=== PATIENT | female | born 1965 | race American Indian/Alaskan Native ===

== ENCOUNTER → 2020-07-24 09:01 | Outpatient (BNVA) | payer MEDICAID, SELFPAY | PROVIDERS: PCP Nurse Practitioner Family; Referring Provider Nurse Practitioner Family; Visit Provider Internal Medicine Gastroenterology | DX: R68.81 Early satiety (principal); K21.9 Gastro-esophageal reflux disease without esophagitis; K59.00 Constipation, unspecified | CPT/HCPCS: 99212 ==

== ENCOUNTER → 2020-08-20 08:05 | Outpatient (REF) | payer MEDICAID, SELFPAY ==
--- NOTE | 2020-08-20 08:07 | NM_ITS ---
EXAMINATION: RADIONUCLIDE SOLID FOOD GASTRIC EMPTYING 4-HOUR STUDY CLINICAL INFORMATION: Early satiety. COMPARISON: No previous gastric emptying study is available for comparison. TECHNIQUE: A standard meal consisting of 4 oz of Egg Beaters brand equivalent tagged with 880 microcuries Tc-99m Sulfur Colloid, 8 oz water and 2 slices of toast with jelly was administered orally to the patient. Images were obtained using a dual head gamma camera in the anterior and posterior projections over of the stomach immediately post ingestion and at hourly intervals up to 4 hours post ingestion. The anterior and posterior counts at each time interval were averaged using the geometric mean and expressed as percentage of the immediate post ingestion counts. FINDINGS: There is good visualization of activity in the stomach immediately post ingestion. As the study progresses, there is good clearance of activity from the stomach and visualization of progressively increasing small bowel activity. However, at the end of the study there is mild abnormal retention of activity in the stomach at 4 hours. Retention in the stomach at each time interval was: 1 hour 54% (normal 37%-90%) 2 hours 41% (normal 30%-60%) 3 hours 33% 4 hours 21% (normal 0%-10%) NM/NM gastric emptying study IMPRESSION: Abnormal study. There is mild abnormal retention of solid food in the stomach at 4 hours.
== END ==
LOC: HO.NUCMED 08:05
PROVIDERS: Visit Provider Internal Medicine Gastroenterology
DX: R68.81 Early satiety (principal)
CPT/HCPCS: 78264; A9541

== ENCOUNTER 2020-09-12 08:17 | Day surgery (SDC) | payer MEDICAID, SELFPAY ==
[2020-09-05 14:24] VITALS: BMI 30.9
--- NOTE | 2020-09-11 11:04 | P.CONAN_ITS ---
Documented by User: Dione Davey 09/11/20 11:05 HPI - Anesthesia Eval Consult details Narrative: 55yo F for Upper Endoscopy PMFSH Past Medical History Medical History Anxiety Asthma Depression GERD (gastroesophageal reflux disease) Hx of hepatitis C Hypertension Hypothyroid Migraines Family History Family History Father No problems noted. Mother No problems noted. Surgical History Surgical History History of colonoscopy History of nasal surgery History of tubal ligation Social History Social History Are you a primary medicare interviewer to a significant other at home: No Do you presently have visiting nurse or other home services: No Alcohol intake: never Smoking Status: Never smoker Use of substances other than those prescribed or required for medical reasons: No Substance Use Type Other:: quit a few yrs ago Advance Directives: No Advance Directives Information Provided: No Advance Directives on File: No Recently lost weight without trying: No Meds Allergies Allergy/AdvReac Type Severity Reaction Status Date / Time No Known Allergies Allergy Verified 09/12/20 08:22 Home Medications Medication Instructions Recorded Confirmed Type baclofen 10 mg PO TID PRN 09/05/20 09/05/20 History hydrochlorothiazide 25 mg PO DAILY 09/05/20 09/05/20 History ibuprofen 800 mg PO TID PRN 09/05/20 09/05/20 History lisinopril 10 mg PO DAILY 09/05/20 09/05/20 History loratadine 10 mg PO DAILY 09/05/20 09/05/20 History omeprazole 40 mg PO BID 09/05/20 09/05/20 History prucalopride 2 mg PO DAILY 09/05/20 09/05/20 History quetiapine [Seroquel] 150 mg PO BEDTIME 09/05/20 09/05/20 History simethicone [Gas Relief 250 mg PO BID PRN 09/05/20 09/05/20 History (simethicone)] zolpidem [Ambien] 10 mg PO BEDTIME PRN 09/05/20 09/05/20 History Exam Exam Date and Time: September 11, 2020 1104 Height,Weight and Vital Signs: Height 5 ft 4 in Weight 81.647 kg Assessment and Plan Assessment Anesthesia Assessment: Chart Reviewed Documented by User: Tracey Sotelo 09/12/20 08:50 FORMERLY [facility] Past Medical History Medical History Anxiety Asthma Depression GERD (gastroesophageal reflux disease) Hx of hepatitis C Hypertension Hypothyroid Migraines Family History Family History Father No problems noted. Mother No problems noted. Surgical History Surgical History History of colonoscopy History of nasal surgery History of tubal ligation Social History Social History Are you a primary medicare interviewer to a significant other at home: No Do you presently have visiting nurse or other home services: No Alcohol intake: never Smoking Status: Never smoker Use of substances other than those prescribed or required for medical reasons: No Substance Use Type Other:: quit a few yrs ago Advance Directives: No Advance Directives Information Provided: No Advance Directives on File: No Recently lost weight without trying: No Meds Allergies Allergy/AdvReac Type Severity Reaction Status Date / Time No Known Allergies Allergy Verified 09/12/20 08:22 Home Medications Medication Instructions Recorded Confirmed Type baclofen 10 mg PO TID PRN 09/05/20 09/05/20 History hydrochlorothiazide 25 mg PO DAILY 09/05/20 09/05/20 History ibuprofen 800 mg PO TID PRN 09/05/20 09/05/20 History lisinopril 10 mg PO DAILY 09/05/20 09/05/20 History loratadine 10 mg PO DAILY 09/05/20 09/05/20 History omeprazole 40 mg PO BID 09/05/20 09/05/20 History prucalopride 2 mg PO DAILY 09/05/20 09/05/20 History quetiapine [Seroquel] 150 mg PO BEDTIME 09/05/20 09/05/20 History simethicone [Gas Relief 250 mg PO BID PRN 09/05/20 09/05/20 History (simethicone)] zolpidem [Ambien] 10 mg PO BEDTIME PRN 09/05/20 09/05/20 History Exam Airway Mallampati Class: III TM Dist: >3cm Neck ROM: Full Loose/Missing/Broken Teeth: No (RRR) Heart: RRR Lungs: CTA Assessment and Plan Assessment Anesthesia Assessment: Anesthesia Plan Discussed and Chart Reviewed Final Anesthetic Review NPO: Yes ASA Class: II and III Final Preanesthetic Review: No Changes in Pt Med Stat, Meds/Allgs Chart Reviewed and Consent Obtained/Reviewed Patient Risk: Intermediate Procedure Risk: Intermediate Anesthetic Plan Anesthetic Plan: MAC: Disposition: Standard PACU
[2020-09-12 08:25] VITALS: BP 116/59; PULSE 64; RESP 18; TEMP 36.4; O2SAT 97
[2020-09-12] MEDS: Lactated Ringers 1,000 ML 100 ML IVCONT (08:44)
--- NOTE | 2020-09-12 09:21 | MHC.SHP ---
Pre-Procedural Eval Section B Chief Complaint: Early Satiety Relevant Family History (Specify if Yes): No Relevant Social History: None Present Medications: see Short Stay Collaborative assessment Medical History: Significant History (Anxiety Asthma Depression GERD (gastroesophageal reflux disease) Hx of hepatitis C Hypertension Hypothyroid Migraines) History of Previous Operations: Relevant previous surgery/procedure and date(s) (nasal surgery) Allergies: Allergies Allergy/AdvReac Type Severity Reaction Status Date / Time No Known Allergies Allergy Verified 09/12/20 08:22 Review of Systems Sugical H&P ROS: Negative: Constitution, Cardiovascular, Respiratory, Neurological, Psychiatric, Hem-Onc, Allergic/Immunologic, Gastrointestinal, Genitourinary, Musculoskeletal, Integumentary, Endocrine and Eyes/Ears/Nose/Throat Exam Surgical H&P Exam: Normal: HEENT, Normal: Heart, Normal: Lungs, Normal: Extremities, Normal: Abdomen, Normal: Skin and Normal: Neurological Plan Diagnosis/Plan: Unchanged I have reviewed the history and physical and performed a pertinent physical examination on my patient. No changes have occurred unless specified.
--- NOTE | 2020-09-12 09:23 | PM.OP ---
Brief Operative Note Date of Service: 09/12/20 Pre-op diagnosis: early satiety, epigastric pain Post-op diagnosis: same Procedure: Procedure Description: EGD FLEXIBLE TRANSORAL UPPER GASTROINTESTINAL ENDOSCOPY UPPER ENDOSCOPY Consent: Indications for the procedure and potential complications of bleeding, perforation, reaction to medications and missed diagnosis were discussed with the patient and informed consent was obtained. Instrument: Olympus GIF H 190 J mid size upper endoscope Monitoring: Vital signs and clinical assessment, continuous EKG monitoring, Pulse oximetry, Carbon Dioxide monitoring and blood pressure monitoring were done throughout the procedure. Procedure: The patient was placed in the left lateral decubitis position and pre-procedure medications were administered and a bite block was placed. The endoscope was inserted into the mouth and advanced under direct vision to the third part of duodenum. A careful inspection was made as the upper endoscope was withdrawn including a retroflexed examination of the proximal stomach; Findings and interventions are described below. Findings: Larynx:normal Esophagus: GE junction at 35 cm, diaphragm hiatus at 37 cm, mild esophagitis at GEJ, 2 cm sliding hiatal hernia. Random esophagus bx taken Stomach: Patchy gastric erythema with nodularity and ridged mucosa. Biopsies were obtained. Grade 2 flap valve on retroflexed examination of the cardia. Duodenum: Normal bulb and descending duodenum, bx taken Intervention: Biopsies as noted above Impression/Findings: gastritis hiatal hernia PLAN: await bx if h pylori pos then treat might change PPI depending on results may need GES if ongoing sx Surgeon: Missy Davidson MD Anesthesia: MAC Estimated blood loss (mL): 0 Condition: stable Disposition: PACU
[2020-09-12 10:01] VITALS: BP 116/58; PULSE 57; RESP 0; TEMP 36.4; O2SAT 80
[2020-09-12 10:16] VITALS: BP 126/84; PULSE 60; RESP 18; O2SAT 100
[2020-09-12 10:30] VITALS: BP 124/75; PULSE 60; RESP 19; TEMP 36.4; O2SAT 94
--- NOTE | 2020-09-12 11:06 | HO.POSTANES ---
Post Anesthesia Evaluation Post Anesthesia Evaluation Vital Signs: Vital Signs Temp Pulse Resp BP Pulse Ox 09/12/20 10:30 97.5 F 60 19 124/75 94 09/12/20 10:16 60 18 126/84 100 09/12/20 10:01 97.5 F 57 0 L 116/58 L 80 L 09/12/20 08:25 97.6 F 64 18 116/59 L 97 Anesthesia: Monitored Mental Status: Awake Pain Control: Satisfactory Nausea/Vomiting: None Hydration: Adequate Anesthesia-Related Issues: No Anes. Related Issues
== END 2020-09-12 11:22 | disposition home or self-care (01) ==
PROVIDERS: Visit Provider Internal Medicine Gastroenterology
PROC: 0DJ08ZZ Inspection of Upper Intestinal Tract, Via Natural or Artificial Opening Endoscopic (ICD-10-PCS; CPT 43235; principal; 2020-09-12 10:10)
DX: K21.00 Gastro-esophageal reflux disease with esophagitis, without bleeding (principal); K29.50 Unspecified chronic gastritis without bleeding; K44.9 Diaphragmatic hernia without obstruction or gangrene
CPT/HCPCS: 43239; 88305; 88342; J3010

== ENCOUNTER → 2020-10-22 09:52 | Outpatient (BNVA) | payer MEDICAID, SELFPAY | PROVIDERS: PCP Nurse Practitioner Family; Visit Provider Internal Medicine Gastroenterology ==

== ENCOUNTER 2021-02-14 17:43 | Emergency (ER) | payer MEDICAID, SELFPAY ==
--- NOTE | ~2021-02-14 | XR_ITS ---
EXAMINATION: XR CHEST CLINICAL INFORMATION: Cough and right-sided back pain COMPARISON: 05/21/2011 TECHNIQUE: Frontal view of the chest was obtained. FINDINGS: Prominent calcification of the cartilages from the first ribs, similar to prior studies. No focal consolidation, pleural effusion or pneumothorax. Heart size is normal. No acute osseous abnormality. XR/XR chest 1V IMPRESSION: No acute pulmonary process.
[2021-02-14 17:47] VITALS: BP 128/85; PULSE 90; RESP 18; TEMP 36.3; O2SAT 98; BMI 29.2
[2021-02-14 20:00] VITALS: BP 133/83; PULSE 85; RESP 18; O2SAT 98
--- NOTE | 2021-02-14 21:21 | ED.GENADULT ---
HPI - General Adult General Chief complaint: General Medical Stated complaint: abd pain Time Seen by Provider: 02/14/21 20:52 Source: patient Mode of arrival: ambulatory Limitations: no limitations History of Present Illness HPI narrative: Patient comes emergency room complaining of headache for 5 days, mild coughing causing right-sided back pain, suprapubic burning sensation and dysuria. Patient denies fever or chills. Denies hematuria Related Data Home Medications Medication Instructions Recorded Confirmed baclofen 10 mg PO TID PRN 09/05/20 10/22/20 hydrochlorothiazide 25 mg PO DAILY 09/05/20 10/22/20 ibuprofen 800 mg PO TID PRN 09/05/20 10/22/20 lisinopril 10 mg PO DAILY 09/05/20 10/22/20 loratadine 10 mg PO DAILY 09/05/20 10/22/20 prucalopride 2 mg PO DAILY 09/05/20 10/22/20 quetiapine [Seroquel] 150 mg PO BEDTIME 09/05/20 10/22/20 simethicone [Gas Relief 250 mg PO BID PRN 09/05/20 10/22/20 (simethicone)] zolpidem [Ambien] 10 mg PO BEDTIME PRN 09/05/20 10/22/20 Previous Rx's Medication Instructions Recorded pantoprazole 40 mg tablet,delayed 40 mg PO BID #90 tab 10/22/20 release prucalopride 2 mg tablet 2 mg PO DAILY #60 tab 10/22/20 levofloxacin 500 mg PO DAILY #9 tab 02/14/21 phenazopyridine 200 mg PO TID PRN #7 tab 02/14/21 Allergies Allergy/AdvReac Type Severity Reaction Status Date / Time No Known Allergies Allergy Verified 10/22/20 09:52 Review of Systems Review of Systems: Constitutional : No Weight loss, No Fever, No Chills, No Night Sweats, No Fatigue, No Malaise ENT/Mouth : No Hearing loss, No Ear Pain, No Nasal Congestion, No Sinus Pain, No Hoarseness, No sore throat, No Rhinorrhea, No Swallowing Difficulty Eyes: No Eye Pain, No Swelling, No Redness, No Foreign Body, No Discharge, No Vision Changes Cardiovascular : No Chest Pain, No SOB, No Dyspnea on Exertion, No Orthopnea, No Edema, No Palpitations Respiratory : Complaining of dry cough causing right-sided back pain, No Sputum, No Wheezing, No Smoke Exposure, No Dyspnea Gastrointestinal : No Nausea, No Vomiting, No Diarrhea, No Constipation, complaining of suprapubic burning sensation, No Hematochezia, No Melena Genitourinary : no irregular bleeding, complaining of Dysuria, No Urinary Frequency, No Hematuria, No Urinary Incontinence, No Urgency, No Flank Pain, No Urinary Flow Changes, No Hesitancy Musculoskeletal : No joint pain, No Myalgias, No Joint Swelling Skin : No Skin Lesions, No rash Neuro : No Weakness, No Numbness, No Paresthesias, No Loss of Consciousness, No Dizziness, complaining of frontal Headache Psych : No Anxiety/Panic, No Depression, No SI/HI/AH/VH, No Social Issues, Heme/Lymph: No Bruising, No Bleeding,No Lymphadenopathy Endocrine : No Polyuria, No Polydipsia, No Temperature Intolerance PMFSH Past Medical History Medical History Anxiety Asthma Depression GERD (gastroesophageal reflux disease) Hx of hepatitis C Hypertension Hypothyroid Migraines Surgical History History of colonoscopy History of esophagogastroduodenoscopy (EGD) History of nasal surgery History of tubal ligation Family History Family History (Updated 10/22/20 @ 09:54 by ANTONY Cardona) Father No problems noted. Mother HTN (hypertension) Social History Social History (Updated 10/22/20 @ 09:55 by ANTONY Cardona) Household Members: None Are you a primary palliative care coordinator to a significant other at home: No Do you presently have visiting nurse or other home services: No Alcohol intake: current Alcohol intake frequency: does not drink Advance Directives: No Advance Directives Information Provided: Yes Physical Exam Vital Signs: Vital Signs: Last Vital Signs Temp 97.3 F 02/14/21 17:47 Pulse 85 02/14/21 20:00 Resp 18 02/14/21 20:00 BP 133/83 02/14/21 20:00 Pulse Ox 98 02/14/21 20:00 Body Mass Index 29.2 Appearance: Alert. Oriented X3. No acute distress. Eyes: Pupils equal, round and reactive to light. ENT: Pharynx normal. Neck: Normal inspection. Neck supple. No lymph nodes noted. No crepitus CVS: Normal heart rate and rhythm. Pulses normal. Normal S1 and S2 Respiratory: No respiratory distress. Breath sounds normal. No Wheezing. No rales Abdomen: Soft mild discomfort to deep palpation over the suprapubic area, no guarding, no rebound, No rigidity. No distention. Skin: Skin warm and dry. Normal skin color. Normal skin turgor. Extremities: No lower extremity edema. No lower extremity edema. No Lacerations. No Rash Neuro: Oriented X 3. No motor deficit. No sensory deficit. Moving all extermities. No slurred speech. Course Course Course Narrative: Patient does have a urinary tract infection, considering that the patient has back pain, patient has clinically pyelonephritis. At this time, sepsis is not suspected. Patient will be treated with antibiotics and sent home with a prescription. Patient's chest x-ray within normal limits, COVID negative Medical Decision Making Lab Data Result diagrams: 02/14/21 21:42 02/14/21 22:28 Labs: Lab Results 02/14/21 02/14/21 02/14/21 Range/Units 21:42 21:42 21:44 WBC 4.7 L (4.8-10.8) X10*3/uL RBC 4.79 (4.20-5.50) X10*6/uL Hgb 12.7 (12.0-16.0) g/dl Hct 39.6 (37-47) % MCV 82.7 (80-98) fL MCH 26.5 L (27.0-33.0) pg MCHC 32.1 (31.0-35.0) g/dl RDW 14.3 (11.0-16.0) % Plt Count 213 (160-400) X10*3/uL MPV 9.9 (9.4-12.3) fL Immature Gran % (Auto) 0.2 (0.0-0.4) % Neut % (Auto) 56.0 (45-73) % Lymph % (Auto) 33.0 (20-40) % [place] % (Auto) 6.8 (2-11) % Eos % (Auto) 3.4 (0-4) % Baso % (Auto) 0.6 (0-2) % Lymph # (Auto) 1.6 (1.2-4.9) X10*3/uL [place] # (Auto) 0.3 (0.1-1.2) X10*3/uL Eos # (Auto) 0.2 (0.0-0.4) X10*3/uL Baso # (Auto) 0.0 (0.0-0.2) X10*3/uL Abs Immat Gran (auto) 0.01 (0.00-0.03) X10*3/uL Absolute Neuts (auto) 2.6 (2.0-8.3) X10*3/uL Absolute Nucleated RBC 0.000 (0.0-0.012) X10*3/uL Nucleated RBC % (auto) 0.0 (0.0-0.2) /100WBC Sodium (135-145) mmol/L Potassium (3.3-5.1) mmol/L Chloride (96-108) mmol/L Carbon Dioxide (22-29) mmol/L Anion Gap (12-20) BUN (9-16) mg/dL Creatinine (0.5-1.4) mg/dL Estim Creat Clear Calc Estimated GFR Random Glucose (60-115) mg/dL Calcium (8.4-10.2) mg/dL Urine Color YELLOW Urine Appearance HAZY Urine pH 6.0 (5.0-8.0) Ur Specific [place] 1.015 (1.005-1.025) Urine Protein NEG (NEG-TRACE) MG/DL Urine Glucose (UA) NEG (NEG) MG/DL Urine Ketones NEG (NEG) MG/DL Urine Blood 1+ H (NEG) Urine Nitrite NEG (NEG) Ur Leukocyte Esterase 2+ H (NEG) COVID-19 ([facility]) Negative (Negative) COVID-19 Clin Com See Note 02/14/21 Range/Units 22:28 WBC (4.8-10.8) X10*3/uL RBC (4.20-5.50) X10*6/uL Hgb (12.0-16.0) g/dl Hct (37-47) % MCV (80-98) fL MCH (27.0-33.0) pg MCHC (31.0-35.0) g/dl RDW (11.0-16.0) % Plt Count (160-400) X10*3/uL MPV (9.4-12.3) fL Immature Gran % (Auto) (0.0-0.4) % Neut % (Auto) (45-73) % Lymph % (Auto) (20-40) % [place] % (Auto) (2-11) % Eos % (Auto) (0-4) % Baso % (Auto) (0-2) % Lymph # (Auto) (1.2-4.9) X10*3/uL [place] # (Auto) (0.1-1.2) X10*3/uL Eos # (Auto) (0.0-0.4) X10*3/uL Baso # (Auto) (0.0-0.2) X10*3/uL Abs Immat Gran (auto) (0.00-0.03) X10*3/uL Absolute Neuts (auto) (2.0-8.3) X10*3/uL Absolute Nucleated RBC (0.0-0.012) X10*3/uL Nucleated RBC % (auto) (0.0-0.2) /100WBC Sodium 136 (135-145) mmol/L Potassium 4.1 (3.3-5.1) mmol/L Chloride 99 (96-108) mmol/L Carbon Dioxide 28 (22-29) mmol/L Anion Gap 13 (12-20) BUN 12 (9-16) mg/dL Creatinine 0.81 (0.5-1.4) mg/dL Estim Creat Clear Calc 80.7 Estimated GFR > 60 Random Glucose 82 (60-115) mg/dL Calcium 9.8 (8.4-10.2) mg/dL Urine Color Urine Appearance Urine pH (5.0-8.0) Ur Specific [place] (1.005-1.025) Urine Protein (NEG-TRACE) MG/DL Urine Glucose (UA) (NEG) MG/DL Urine Ketones (NEG) MG/DL Urine Blood (NEG) Urine Nitrite (NEG) Ur Leukocyte Esterase (NEG) COVID-19 ([facility]) (Negative) COVID-19 Clin Com Imaging Data Chest x-ray: Radiologist's impression: Prominent calcification of the cartilages from the first ribs, similar to prior studies. No focal consolidation, pleural effusion or pneumothorax. Heart size is normal. No acute osseous abnormality. XR/XR chest 1V IMPRESSION: No acute pulmonary process. Discharge Plan Discharge Clinical Impression: Pyelonephritis Patient Disposition: Home, Self-Care Instructions: Kidney Infection (ED) Additional Instructions: Please follow-up with your primary care physician tomorrow. If you have any worsening or new symptoms, please return to the emergency room or call 911 Prescriptions: New levofloxacin 500 mg tablet 500 mg PO DAILY Qty: 9 RF: 0 phenazopyridine 100 mg tablet 200 mg PO TID PRN (Reason: pain) Qty: 7 RF: 0 No Action ibuprofen 800 mg Tablet 800 mg PO TID PRN (Reason: Pain) RF: 0 simethicone [Gas Relief (simethicone)] 125 mg Capsule 250 mg PO BID PRN (Reason: Gastric Reflux) RF: 0 quetiapine [Seroquel] 100 mg Tablet 150 mg PO BEDTIME RF: 0 baclofen 10 mg Tablet 10 mg PO TID PRN (Reason: Muscle Spasm) RF: 0 hydrochlorothiazide 25 mg Tablet 25 mg PO DAILY RF: 0 zolpidem [Ambien] 10 mg Tablet 10 mg PO BEDTIME PRN (Reason: Sleep) RF: 0 loratadine 10 mg Tablet 10 mg PO DAILY RF: 0 prucalopride 2 mg Tablet 2 mg PO DAILY RF: 0 lisinopril 10 mg Tablet 10 mg PO DAILY RF: 0 pantoprazole 40 mg tablet,delayed release (DR/EC) 40 mg PO BID Qty: 90 RF: 3 Motegrity 2 mg tablet 2 mg PO DAILY Qty: 60 RF: 3
[2021-02-14 21:48] LABS: MANUAL DIFF FLAG NO
[2021-02-14 21:49] LABS: Basophils Percent Auto 0.6 % (0-2); Eosinophils Absolute Auto 0.2 X10*3/uL (0.0-0.4); Eosinophils Percent Auto 3.4 % (0-4); Hematocrit 39.6 % (37-47); Hemoglobin 12.7 g/dl (12.0-16.0); Imm Gran Abs Auto 0.01 X10*3/uL (0.00-0.03); Imm Gran Pct Auto 0.2 % (0.0-0.4); Lymphocytes Absolute Auto 1.6 X10*3/uL (1.2-4.9); Mean Corpuscular HGB Conc 32.1 g/dl (31.0-35.0); Mean Corpuscular Hemoglobin 26.5 pg (27.0-33.0); Mean Corpuscular Volume 82.7 fL (80-98); Mean Platelet Volume 9.9 fL (9.4-12.3); Monocytes Absolute Auto 0.3 X10*3/uL (0.1-1.2); Monocytes Percent Auto 6.8 % (2-11); Neutrophils Absolute Auto 2.6 X10*3/uL (2.0-8.3); Platelet Count 213 X10*3/uL (160-400); Red Blood Count 4.79 X10*6/uL (4.20-5.50); Red Cell Distribution Width 14.3 % (11.0-16.0); White Blood Count 4.7 X10*3/uL (4.8-10.8)
[2021-02-14] MEDS: SUMAtriptan succinate 100 MG TABLET PO (22:24)
[2021-02-14 22:36] LABS: Glucose Urine UA NEG (NEG); Leukocyte Esterase Urine 2+ (NEG); Nitrite Urine NEG (NEG); Specific Gravity - Urine 1.015 (1.005-1.025); UACC Culture Trigger YES; Urine Blood 1+ (NEG); Urine Ketones NEG (NEG); Urine Protein NEG (NEG-TRACE)
[2021-02-14 22:37] LABS: Appearance Urine HAZY; Color Urine YELLOW
[2021-02-14 22:51] LABS: COVID-19 Test Negative (Negative)
[2021-02-14 22:56] LABS: Anion Gap 13 (12-20); Blood Urea Nitrogen 12 mg/dL (9-16); Calcium 9.8 mg/dL (8.4-10.2); Carbon Dioxide 28 mmol/L (22-29); Chloride 99 mmol/L (96-108); Creatinine Clr Calc Pharmacy 80.7; Estimated Glomerular Filt Rate > 60; Glucose Random 82 mg/dL (60-115); Potassium 4.1 mmol/L (3.3-5.1); Sodium 136 mmol/L (135-145)
[2021-02-14 23:04] LABS: Bacteria Urine 3+ /LPF; RBC Urine 0 /HPF (0); Squamous Epithelial Cell Urine 1+ /LPF
[2021-02-14 23:05] LABS: Amorphous Sediment Urine TRACE /LPF; Mucus Urine 1+ /LPF
[2021-02-14] MEDS: levoFLOXacin 750 MG TABLET PO (23:11)
[2021-02-14] MEDS: Phenazopyridine HCL 100 MG TABLET PO (23:11)
[2021-02-14 23:16] VITALS: BP 122/77; PULSE 81; RESP 16; TEMP 36.5; O2SAT 98
== END 2021-02-14 23:18 | disposition home or self-care (01) ==
PROVIDERS: Emergency Provider Emergency Medicine
DX: N10 Acute pyelonephritis (principal); R51.9 Headache, unspecified; R05 Cough; M54.5 Low back pain; R30.0 Dysuria; Z20.822 Contact with and (suspected) exposure to COVID-19; Z79.899 Other long term (current) drug therapy
CPT/HCPCS: 36415; 71045; 80048; 81001; 81003; 85025; 87086; 87088; 87186; 87635; 99284

== ENCOUNTER → 2021-06-11 13:04 | Outpatient (BNVA) | payer MEDICAID, SELFPAY | PROVIDERS: Visit Provider Internal Medicine Gastroenterology | DX: K31.84 Gastroparesis (principal) | CPT/HCPCS: 99212 ==

== ENCOUNTER 2021-07-22 07:43 | Day surgery (SDC) | payer MEDICAID, SELFPAY ==
[2021-07-16 10:32] VITALS: BMI 32.5
--- NOTE | 2021-07-22 08:30 | P.HPSUR_ITS ---
Pre-Procedural Eval Section A Date of Service: 07/22/21 Section B Chief Complaint: gastroparesis Relevant Family History (Specify if Yes): Yes Relevant Social History: None Present Medications: see Short Stay Collaborative assessment Medical History: Significant History (Anxiety Asthma Depression GERD (gastroesophageal reflux disease) Hx of hepatitis C Hypertension Hypothyroid Migraines) History of Previous Operations: Relevant previous surgery/procedure and date(s) (tubal ligation, nasal surgery) Allergies: Allergies Allergy/AdvReac Type Severity Reaction Status Date / Time No Known Allergies Allergy Verified 10/22/20 09:52 Review of Systems Sugical H&P ROS: Negative: Constitution, Cardiovascular, Respiratory, Neurological, Psychiatric, Hem-Onc, Allergic/Immunologic, Gastrointestinal, Genitourinary, Musculoskeletal, Integumentary, Endocrine and Ey es/Ears/Nose/Throat Exam Surgical H&P Exam: Normal: HEENT, Normal: Heart, Normal: Lungs, Normal: Extremities, Normal: Abdomen, Normal: Skin and Normal: Neurological Plan Diagnosis/Plan: Unchanged I have reviewed the history and physical and performed a pertinent physical examination on my patient. No changes have occurred unless specified. EGD with botox and stretch
--- NOTE | 2021-07-22 08:34 | HO.ANESPROP2 ---
FORMERLY [facility], [facility] Active Problems Active Problems: All Active Problems (Updated 02/15/21 @ 00:00 by Background Daemon) Early satiety (Acute) Gastroparesis (Acute) Past Medical History Medical History (Updated 02/15/21 @ 00:00 by Background Dayran) Anxiety Asthma Depression GERD (gastroesophageal reflux disease) Hx of hepatitis C Hypertension Hypothyroid Migraines Family History Family History (Updated 10/22/20 @ 09:54 by ANTONY Cardona) Father No problems noted. Mother HTN (hypertension) Surgical History Surgical History (Updated 07/16/21 @ 10:30 by Ruby Posey RN) History of colonoscopy History of esophagogastroduodenoscopy (EGD) History of nasal surgery History of tubal ligation Social History Social History (Updated 10/22/20 @ 09:55 by ANTONY Cardona) Household Members: None Are you a primary home care consultant to a significant other at home: No Do you presently have visiting nurse or other home services: No Alcohol intake: current Alcohol intake frequency: does not drink Advance Directives Information Provided: Yes (informational brochure mailed) Advance Directives on File: No Meds Allergies Allergy/AdvReac Type Severity Reaction Status Date / Time No Known Allergies Allergy Verified 10/22/20 09:52 Home Medications Medication Instructions Recorded Confirmed Last Taken Type baclofen 10 mg tablet 10 mg PO TID PRN 09/05/20 10/22/20 Unknown History hydrochlorothiazide 25 mg tablet 25 mg PO DAILY 09/05/20 10/22/20 Unknown History ibuprofen 800 mg tablet 800 mg PO TID PRN 09/05/20 10/22/20 Unknown History lisinopril 10 mg tablet 10 mg PO DAILY 09/05/20 10/22/20 Unknown History loratadine 10 mg tablet 10 mg PO DAILY 09/05/20 10/22/20 Unknown History quetiapine 100 mg tablet (Seroquel) 150 mg PO BEDTIME 09/05/20 10/22/20 Unknown History simethicone 125 mg capsule (Gas 250 mg PO BID PRN 09/05/20 10/22/20 Unknown History Relief (simethicone)) zolpidem 10 mg tablet (Ambien) 10 mg PO BEDTIME PRN 09/05/20 10/22/20 Unknown History Exam Exam Date and Time: July 22, 2021 0834 Height,Weight and Vital Signs: Height 5 ft 4 in Weight 86.183 kg Airway Mallampati Class: II TM Dist: >3cm Neck ROM: Full
[2021-07-22] MEDS: Lactated Ringers 1,000 ML 100 ML IVCONT (08:39)
--- NOTE | 2021-07-22 09:02 | PM.OP ---
Brief Operative Note Date of Service: 07/22/21 Pre-op diagnosis: dysphagia, gastroparesis Post-op diagnosis: same Procedure: see op note Surgeon: Missy Davidson MD Anesthesia: MAC Was an Learning And Development Director used for this Procedure?: No Estimated blood loss (mL): 0 Condition: stable Disposition: PACU
--- NOTE | 2021-07-22 09:03 | W.PM.OPN ---
Operative Note Operative Note Date of Service: 07/22/21 Narrative: Procedure Description: EGD FLEXIBLE TRANSORAL UPPER GASTROINTESTINAL ENDOSCOPY UPPER ENDOSCOPY Consent: Indications for the procedure and potential complications of bleeding, perforation, reaction to medications and missed diagnosis were discussed with the patient and informed consent was obtained. Instrument: Olympus GIF H 190 J mid size upper endoscope Monitoring: Vital signs and clinical assessment, continuous EKG monitoring, Pulse oximetry, Carbon Dioxide monitoring and blood pressure monitoring were done throughout the procedure. Procedure: The patient was placed in the left lateral decubitis position and pre-procedure medications were administered and a bite block was placed. The endoscope was inserted into the mouth and advanced under direct vision to the third part of duodenum. A careful inspection was made as the upper endoscope was withdrawn including a retroflexed examination of the proximal stomach; Findings and interventions are described below. Findings: Larynx:normal Esophagus: GE junction at 34 cm, diaphragm hiatus at 37 cm, there was a 3 cm sliding hiatal hernia noted, 20 mm balloon dilated across distal esophagus and UES, with no tears seen Stomach: Patchy gastric erythema consistent with mild gastritis. Grade 3 flap valve on retroflexed examination of the cardia with lax LES. 20 mm balloon used to stretch the pyloric outlet and then 100 units injected in divided amounts around the outlet Duodenum: Normal bulb and descending duodenum, Intervention: Balloon dilation, botox injection Impression/Findings: hiatal hernia gastroparesis PLAN: confirm taking PPI, Reflux precautions
[2021-07-22 09:08] VITALS: BP 102/63; PULSE 65; RESP 18; TEMP 36.8; O2SAT 100
[2021-07-22 09:25] VITALS: BP 147/85; PULSE 77; RESP 18; TEMP 36.7; O2SAT 99
== END 2021-07-22 10:49 | disposition home or self-care (01) ==
PROVIDERS: Visit Provider Internal Medicine Gastroenterology
PROC: (CPT 43249; principal; 2021-07-22 08:30)
DX: K31.84 Gastroparesis (principal); R13.10 Dysphagia, unspecified; K21.9 Gastro-esophageal reflux disease without esophagitis; K44.9 Diaphragmatic hernia without obstruction or gangrene; I10 Essential (primary) hypertension; J45.909 Unspecified asthma, uncomplicated; F32.9 Major depressive disorder, single episode, unspecified; E03.9 Hypothyroidism, unspecified; R79.82 Elevated C-reactive protein (CRP); Z86.19 Personal history of other infectious and parasitic diseases
CPT/HCPCS: 43249; 43245; C1726; J0585

== ENCOUNTER 2021-08-22 07:39 | Emergency (ER) | payer MEDICAID, SELFPAY ==
--- NOTE | ~2021-08-22 | CT_ITS ---
EXAMINATION: CT LUMBAR SPINE WITHOUT CONTRAST CLINICAL INFORMATION: Severe back pain with ambulation. COMPARISON: Lumbar spine radiographs from 04/28/2011. TECHNIQUE: Multidetector helical imaging of the lumbar spine was obtained without intravenous contrast. Multiple axial reformats and coronal/sagittal reconstructions were created the technologist workstation for review. This CT examination was performed using dose optimization techniques as appropriate, variously including the following: *Automated exposure control. *Adjustment of mA and/or kV according to patient size (this includes techniques or standardized protocols for targeted exams where dose is matched to indication/reason for exam; i.e. extremities or head). *Use of iterative reconstruction technique. DLP: 599 mGy-cm FINDINGS: Minimal left convex curvature of the lumbar spine. Otherwise, normal anatomic alignment. No evidence of acute fracture or traumatic subluxation. The vertebral body heights are maintained. The intervertebral disc spaces are maintained. No suspicious lytic or sclerotic osseous lesions. No significant abnormalities of the paraspinal musculature. Limited evaluation of the intra-abdominal structures without significant abnormalities. The abdominal aorta is of normal contour and caliber. AXIAL SPINAL LEVELS: L1-L2: Normal annular contour. There is moderate left and mild right facet joint arthropathy. There is no neural foraminal stenosis. There is no demonstrated spinal canal stenosis. L2-L3: Mild diffuse disc bulge with superimposed right foraminal disc protrusion. There is moderate bilateral facet joint arthropathy. There is mild right and no left neural foraminal stenosis. There is no demonstrated spinal canal stenosis. L3-L4: Mild diffuse disc bulge. There is moderate right and mild left facet joint arthropathy. There is mild bilateral neural foraminal stenosis. There is no demonstrated spinal canal stenosis. L4-L5: Mild diffuse disc bulge with superimposed left foraminal disc protrusion. There is mild to moderate bilateral facet joint arthropathy. There is moderate left worse than right neural foraminal stenosis. There is no demonstrated spinal canal stenosis. L5-S1: Mild diffuse disc bulge. There is severe right and moderate left facet joint arthropathy. There is moderate bilateral neural foraminal stenosis. There is no demonstrated spinal canal stenosis. CT/CT lumbar spine wo con IMPRESSION: 1. No evidence of acute fracture or traumatic subluxation of the lumbar spine. 2. Mild to moderate multilevel degenerative spondyloarthropathy of the lumbar spine as described in detail above. Most notably on this limited exam without intrathecal contrast, there appears to be moderate neural foraminal stenoses at L4-L5. No overt spinal canal stenosis.
[2021-08-22 08:10] VITALS: BP 117/71; PULSE 83; RESP 18; TEMP 36.6; O2SAT 98; BMI 31.6
--- NOTE | 2021-08-22 08:17 | ED.BACK ---
HPI - Back Pain/Injury General Chief Complaint: Back Pain/Injury Stated Complaint: back pain Time Seen by Provider: 08/22/21 08:15 Source: patient Mode of arrival: ambulatory Limitations: no limitations History of Present Illness HPI Narrative: This is a 55-year-old female past medical history significant for hypertension, GERD, migraines, hepatitis C, arthritis, asthma presents to the emergency department with 2 weeks of progressively worsening lower back pain status post slip and fall in the shower. She tells me 2 weeks ago she slipped on a bar soap, falling backwards onto her back. She immediately started experiencing pain to her lower back however she states it was not as bad as it is today. She tells me that the pain and it is constant in nature, localized to bilateral sides, worse with movement better at rest. She also tells me his pain if she touches the area. She denies fevers, chills, nausea, vomiting, chest pain, shortness of breath, weakness, sensory deficits, issues with urination, incontinence, headache, LOC w/fall. She has no prior back history or surgeries. Patient is not an IV drug user. MD elicited complaint: back pain and fall Pertinent past history: recent trauma (fall ) Onset (ago): week(s) (2) Timing: progressively worsening Severity: severe Similar Symptoms Previously: No Quality: sharp and stabbing Location: lumbar spine Radiation: none Exacerbating factors: movement Relieving factors: immobilization Context: fall Associated symptoms: denies other symptoms Work related injury: No Related Data Home Medications Medication Instructions Recorded Confirmed baclofen 10 mg tablet 10 mg PO TID PRN 09/05/20 10/22/20 hydrochlorothiazide 25 mg tablet 25 mg PO DAILY 09/05/20 10/22/20 ibuprofen 800 mg tablet 800 mg PO TID PRN 09/05/20 10/22/20 lisinopril 10 mg tablet 10 mg PO DAILY 09/05/20 10/22/20 loratadine 10 mg tablet 10 mg PO DAILY 09/05/20 10/22/20 quetiapine 100 mg tablet (Seroquel) 150 mg PO BEDTIME 09/05/20 10/22/20 simethicone 125 mg capsule (Gas 250 mg PO BID PRN 09/05/20 10/22/20 Relief (simethicone)) zolpidem 10 mg tablet (Ambien) 10 mg PO BEDTIME PRN 09/05/20 10/22/20 Previous Rx's Medication Instructions Recorded levofloxacin 500 mg tablet 500 mg PO DAILY #9 tab 02/14/21 phenazopyridine 100 mg tablet 200 mg PO TID PRN #7 tab 02/14/21 linaclotide 145 mcg capsule 145 mcg PO DAILY #30 cap 06/11/21 sucralfate 100 mg/mL oral 5 ml PO QID #1000 ml 06/11/21 suspension pantoprazole 40 mg tablet,delayed 40 mg PO BID #90 tab 07/25/21 release cyclobenzaprine 10 mg tablet 10 mg PO BEDTIME PRN #7 tab 08/22/21 lidocaine 5 % topical patch 1 patch TOPICAL DAILY PRN #15 ea 08/22/21 morphine 15 mg immediate release 15 mg PO BID PRN #8 tab 08/22/21 tablet Allergies Allergy/AdvReac Type Severity Reaction Status Date / Time No Known Allergies Allergy Verified 10/22/20 09:52 Review of Systems Review of Systems: Constitutional : No Weight loss, No Fever, No Chills, No Fatigue, No Malaise ENT/Mouth : No sore throat, No Rhinorrhea Eyes: No Eye Pain, No Swelling, No Redness Cardiovascular : No Chest Pain, No SOB, No Dyspnea on Exertion, No Orthopnea, No Edema, No Palpitations Respiratory : No Cough, No Sputum, No Wheezing Gastrointestinal : No Nausea, No Vomiting, No Diarrhea, No Constipation, No abdominal Pain, No Hematochezia, No Melena Genitourinary : No Dysuria, No Urinary Frequency, No Hematuria, Musculoskeletal : + joint pain, No Myalgias, No Joint Swelling Skin : No Skin Lesions, No rash Neuro : No Weakness, No Numbness, No Dizziness, No Headache Psych : No Anxiety/Panic, No Depression All other systems reviewed and are negative [facility] Past Medical History Attestation statement: The following information was validated with the patient. Source: old records reviewed and nursing notes reviewed Medical History Anxiety Asthma Depression GERD (gastroesophageal reflux disease) Hx of hepatitis C Hypertension Hypothyroid Migraines Surgical History History of colonoscopy History of esophagogastroduodenoscopy (EGD) History of nasal surgery History of tubal ligation Family History Family History Father No problems noted. Mother HTN (hypertension) Social History Social History Household Members: None Are you a primary laboratory animal caretaker to a significant other at home: No Do you presently have visiting nurse or other home services: No Alcohol intake: current Alcohol intake frequency: holidays/special occasions only Patient Tobacco Use Status: Never used Tobacco Use of substances other than those prescribed or required for medical reasons: No Advance Directives: No Advance Directives Information Provided: Yes Physical Exam Vital Signs: Vital Signs: Last Vital Signs Temp 97.8 F 08/22/21 08:10 Pulse 83 08/22/21 08:10 Resp 18 08/22/21 08:10 BP 117/71 08/22/21 08:10 Pulse Ox 98 08/22/21 08:10 BMI result Body Mass Index 31.6 VSS Appearance: Alert.? Oriented X3.? No acute distress.? Head: Normocephalic, atraumatic, no step-offs or deformities Eyes: Pupils equal, round and reactive to light.? ENT: Pharynx normal.? Neck: Normal inspection.? Neck supple.? CVS: Normal heart rate and rhythm.? Pulses normal.? Respiratory: No respiratory distress.? Breath sounds normal.? Abdomen: Soft and nontender.? Skin: Skin warm and dry.? Normal skin color.? Normal skin turgor.? Extremities: No lower extremity edema.? No calf ttp. 5/5 strength to bilateral upper and lower extremities Back: No midline tenderness, no C-spine tenderness, + full range of motion w/ pain + pain to plpation to bilateral lumbar paraspinous muscles + striaght leg raise b/l, no CVA tenderness bilaterally Neuro: Oriented X 3.? No motor deficit.? No sensory deficit. No saddle paresthesias. 2+ patellar reflexes equal bilateral. Course Reevaluation(s) Reevaluation #1: Patient notes significant improvement after medication however she states it still hurts a lot. Patient able to ambulate w/ discomfort. No leukocytosis, a slight anemia is noted, normocytic. No evident electrolyte abnormalities. CT of the lumbar spine with no abnormalities, shows degenerative disease, no fractures. Patient denies midline tenderness, no sensory or motor deficits, no fever, no hx IVDA, ambulating alone w/o assistance no urinary or bowel incontinence. Patient still reporting significant pain, however, this is likley a muscle strain w/ radiculopathy. Unlikely cauda equina or epidural abscess, patient history and physical examination not consistent with either of these diagnoses. Time: 10:26 MDM - Back Pain/Injury MDM Narrative Medical decision making narrative: 821 55-year-old female past medical history significant for hypertension, anxiety, arthritis, hepatitis-C, migraines presents to the emergency department with lumbar back pain status post slip and fall 2 weeks ago progressively worsening. No red flag symptoms. Patient is not an IV drug user. Upon physical examination patient appears well and is in no acute distress. Vital signs are stable. S1-S2 appreciated free of murmurs lungs are clear. Abdomen soft nontender nondistended. Pupils equal round and reactive to light. Extraocular movements intact. Head normocephalic, atraumatic no step-offs or deformities. No midline tenderness, no C-spine tenderness, back w/ full range of motion w/ pain there is pain to palpation to bilateral lumbar paraspinous muscles and striaght leg raise b/l, no CVA tenderness bilaterally. No saddle paresthesias no weakness. Sensory and motor intact. Reflexes 2+ equal and bilateral. Plan at this time is to obtain basic labs to rule out infection, ESR, COVID, CT lumbar spine without contrast. Patient will be medicated for comfort. Unlikely that this is a epidural abscess. I am not suspecting cauda equina. Will rule out fractures. Based off patient's history and physical exam findings this could be a herniated disc. Medical Records Attestation: I reviewed the patient's medical records. Lab Data Attestation: I reviewed the patient's lab results. Result diagrams: 08/22/21 08:28 12 10:04 Labs: Lab Results 08/22/21 08/22/21 08/22/21 Range/Units 08:28 08:28 08:28 WBC 6.4 (4.8-10.8) X10*3/uL RBC 4.25 (4.20-5.50) X10*6/uL Hgb 11.5 L (12.0-16.0) g/dl Hct 36.4 L (37.0-47.0) % MCV 85.6 (80.0-98.0) fL MCH 27.1 (27.0-33.0) pg MCHC 31.6 (31.0-35.0) g/dl RDW 15.3 (11.0-16.0) % Plt Count 237 (160-400) X10*3/uL MPV 9.9 (9.4-12.3) fL Immature Gran % (Auto) 0.2 (0.0-0.4) % Neut % (Auto) 44.4 L (45-73) % Lymph % (Auto) 41.8 H (20-40) % [place] % (Auto) 8.9 (2-11) % Eos % (Auto) 4.1 H (0-4) % Baso % (Auto) 0.6 (0-2) % Lymph # (Auto) 2.7 (1.2-4.9) X10*3/uL [place] # (Auto) 0.6 (0.1-1.2) X10*3/uL Eos # (Auto) 0.3 (0.0-0.4) X10*3/uL Baso # (Auto) 0.0 (0.0-0.2) X10*3/uL Abs Immat Gran (auto) 0.01 (0.00-0.03) X10*3/uL Absolute Neuts (auto) 2.8 (2.0-8.3) x10*3/uL Absolute Nucleated RBC 0.000 (0.0-0.012) X10*3/uL Nucleated RBC % (auto) 0.0 (0.0-0.2) /100WBC ESR 25 H (0-20) MM/HR Sodium (135-145) mmol/L Potassium (3.3-5.1) mmol/L Chloride (96-108) mmol/L Carbon Dioxide (22-29) mmol/L Anion Gap (12-20) BUN (9-16) mg/dL Creatinine (0.5-1.4) mg/dL Estim Creat Clear Calc Estimated GFR Random Glucose (60-115) mg/dL Calcium (8.4-10.2) mg/dL Total Bilirubin (0.0-1.0) mg/dL AST (5-31) U/L ALT (0-31) U/L Alkaline Phosphatase (39-117) U/L Total Protein (6.5-8.0) g/dL Albumin (3.5-5.0) g/dL COVID-19 ([facility]) Negative (Negative) COVID-19 Clin Com See Note 08/22/21 Range/Units 10:04 WBC (4.8-10.8) X10*3/uL RBC (4.20-5.50) X10*6/uL Hgb (12.0-16.0) g/dl Hct (37.0-47.0) % MCV (80.0-98.0) fL MCH (27.0-33.0) pg MCHC (31.0-35.0) g/dl RDW (11.0-16.0) % Plt Count (160-400) X10*3/uL MPV (9.4-12.3) fL Immature Gran % (Auto) (0.0-0.4) % Neut % (Auto) (45-73) % Lymph % (Auto) (20-40) % [place] % (Auto) (2-11) % Eos % (Auto) (0-4) % Baso % (Auto) (0-2) % Lymph # (Auto) (1.2-4.9) X10*3/uL [place] # (Auto) (0.1-1.2) X10*3/uL Eos # (Auto) (0.0-0.4) X10*3/uL Baso # (Auto) (0.0-0.2) X10*3/uL Abs Immat Gran (auto) (0.00-0.03) X10*3/uL Absolute Neuts (auto) (2.0-8.3) x10*3/uL Absolute Nucleated RBC (0.0-0.012) X10*3/uL Nucleated RBC % (auto) (0.0-0.2) /100WBC ESR (0-20) MM/HR Sodium 138 (135-145) mmol/L Potassium 4.2 (3.3-5.1) mmol/L Chloride 104 (96-108) mmol/L Carbon Dioxide 29 (22-29) mmol/L Anion Gap 9 L (12-20) BUN 18 H (9-16) mg/dL Creatinine 1.05 (0.5-1.4) mg/dL Estim Creat Clear Calc 64.7 Estimated GFR 55 Random Glucose 103 (60-115) mg/dL Calcium 9.5 (8.4-10.2) mg/dL Total Bilirubin 0.3 (0.0-1.0) mg/dL AST 22 (5-31) U/L ALT 16 (0-31) U/L Alkaline Phosphatase 158 H (39-117) U/L Total Protein 7.6 (6.5-8.0) g/dL Albumin 4.2 (3.5-5.0) g/dL COVID-19 ([facility]) (Negative) COVID-19 Clin Com Critical Care Time Critical Care Time Critical Care Time: No Discharge Plan Discharge Clinical Impression: Lumbar radiculopathy, Strain of lumbar region Patient Disposition: Home, Self-Care Instructions: Acute Low Back Pain (ED), Lumbar Radiculopathy (ED), Back Pain (ED), Lower Back Exercises (ED) Additional Instructions: Take your medications as prescribed. Follow-up with your primary care provider this week as you will likley require further imaging Return to the emergency department with new or worsening symptoms. Such as fevers, chills, nausea, vomiting, weakness, incontinence or inability to control bowel or urine worsening pain, loss of sensation to legs/feet. In case of emergency call 911 Prescriptions: New cyclobenzaprine 10 mg tablet 10 mg PO BEDTIME PRN (Reason: muscle spasm) Qty: 7 RF: 0 lidocaine 5 % adhesive patch,medicated 1 patch topical DAILY PRN (Reason: pain) Qty: 15 RF: 0 morphine 15 mg tablet 15 mg PO BID PRN (Reason: pain) Qty: 8 RF: 0 No Action pantoprazole 40 mg tablet,delayed release (DR/EC) 40 mg PO BID Qty: 90 RF: 3 ibuprofen 800 mg Tablet 800 mg PO TID PRN (Reason: Pain) RF: 0 simethicone [Gas Relief (simethicone)] 125 mg Capsule 250 mg PO BID PRN (Reason: Gastric Reflux) RF: 0 quetiapine [Seroquel] 100 mg Tablet 150 mg PO BEDTIME RF: 0 baclofen 10 mg Tablet 10 mg PO TID PRN (Reason: Muscle Spasm) RF: 0 hydrochlorothiazide 25 mg Tablet 25 mg PO DAILY RF: 0 zolpidem [Ambien] 10 mg Tablet 10 mg PO BEDTIME PRN (Reason: Sleep) RF: 0 loratadine 10 mg Tablet 10 mg PO DAILY RF: 0 lisinopril 10 mg Tablet 10 mg PO DAILY RF: 0 levofloxacin 500 mg tablet 500 mg PO DAILY Qty: 9 RF: 0 phenazopyridine 100 mg tablet 200 mg PO TID PRN (Reason: pain) Qty: 7 RF: 0 sucralfate 100 mg/mL suspension 5 ml PO QID Qty: 1000 RF: 0 linaclotide 145 mcg capsule 145 mcg PO DAILY Qty: 30 RF: 2 Referrals: Physician,Unknown J [Primary Care Provider] - 2 days Stand Alone Forms: Work/School Release
[2021-08-22] MEDS: 0.9 % Sodium Chloride 1,000 ML 999 ML IV (08:29)
[2021-08-22] MEDS: Lidocaine 4 % Patch ADH..PATCH 1 PATCH TRANSDERMA (08:33)
[2021-08-22] MEDS: Morphine Sulfate 4 MG/ML CARTRIDGE IVPUSH (08:34)
[2021-08-22] MEDS: Cyclobenzaprine HCl 10 MG TABLET PO (08:34)
[2021-08-22 08:37] LABS: MANUAL DIFF FLAG NO
[2021-08-22 08:39] LABS: Basophils Percent Auto 0.6 % (0-2); Eosinophils Absolute Auto 0.3 X10*3/uL (0.0-0.4); Eosinophils Percent Auto 4.1 % (0-4); Hematocrit 36.4 % (37.0-47.0); Hemoglobin 11.5 g/dl (12.0-16.0); Imm Gran Abs Auto 0.01 X10*3/uL (0.00-0.03); Imm Gran Pct Auto 0.2 % (0.0-0.4); Lymphocytes Absolute Auto 2.7 X10*3/uL (1.2-4.9); Lymphocytes Percent Auto 41.8 % (20-40); Mean Corpuscular HGB Conc 31.6 g/dl (31.0-35.0); Mean Corpuscular Hemoglobin 27.1 pg (27.0-33.0); Mean Corpuscular Volume 85.6 fL (80.0-98.0); Mean Platelet Volume 9.9 fL (9.4-12.3); Monocytes Absolute Auto 0.6 X10*3/uL (0.1-1.2); Monocytes Percent Auto 8.9 % (2-11); Neutrophils Absolute Auto 2.8 x10*3/uL (2.0-8.3); Neutrophils Percent Auto 44.4 % (45-73); Platelet Count 237 X10*3/uL (160-400); Red Blood Count 4.25 X10*6/uL (4.20-5.50); Red Cell Distribution Width 15.3 % (11.0-16.0); White Blood Count 6.4 X10*3/uL (4.8-10.8)
[2021-08-22 09:02] LABS: COVID-19 Test Negative (Negative); IDNOW Serial# 08D9AD1C
[2021-08-22 09:17] LABS: Erythrocyte Sedimentation Rate 25 MM/HR (0-20)
[2021-08-22 10:31] LABS: Alanine Aminotransferase 16 U/L (0-31); Albumin Level 4.2 g/dL (3.5-5.0); Alkaline Phosphatase 158 U/L (39-117); Anion Gap 9 (12-20); Aspartate Amino Transferase 22 U/L (5-31); Bilirubin Total 0.3 mg/dL (0.0-1.0); Blood Urea Nitrogen 18 mg/dL (9-16); Calcium 9.5 mg/dL (8.4-10.2); Carbon Dioxide 29 mmol/L (22-29); Chloride 104 mmol/L (96-108); Creatinine Clr Calc Pharmacy 64.7; Estimated Glomerular Filt Rate 55; Glucose Random 103 mg/dL (60-115); Potassium 4.2 mmol/L (3.3-5.1); Sodium 138 mmol/L (135-145); Total Protein 7.6 g/dL (6.5-8.0)
== END 2021-08-22 11:02 | disposition home or self-care (01) ==
PROVIDERS: Physician Assistant; Emergency Provider Emergency Medicine
DX: M54.16 Radiculopathy, lumbar region (principal); S39.012A Strain of muscle, fascia and tendon of lower back, initial encounter; W18.2XXA Fall in (into) shower or empty bathtub, initial encounter; I10 Essential (primary) hypertension; Z20.822 Contact with and (suspected) exposure to COVID-19; Y93.E1 Activity, personal bathing and showering; Y92.031 Bathroom in apartment as the place of occurrence of the external cause; Y99.9 Unspecified external cause status
CPT/HCPCS: 36415; 72131; 80053; 85025; 85652; 87635; 96361; 96374; 99284; J2270

== ENCOUNTER → 2021-08-27 14:38 | Outpatient (BNVA) | payer MEDICAID, SELFPAY | PROVIDERS: PCP General Practice; Referring Provider General Practice; Visit Provider Internal Medicine Gastroenterology | DX: K31.84 Gastroparesis (principal); R68.81 Early satiety | CPT/HCPCS: 99212 ==

== ENCOUNTER 2021-08-29 12:24 | Outpatient (REF) | payer MEDICAID, SELFPAY ==
[2021-09-02 07:26] LABS: Anti Nuclear Antibody Screen NEGATIVE (NEGATIVE)
[2021-09-04 20:51] LABS: Hu Antibody Screen, IFA Serum NEGATIVE (NEGATIVE); Yo Antibody, Serum Screen NEGATIVE (NEGATIVE)
== END 2021-08-29 12:25 | disposition home or self-care (01) ==
LOC: HO.LAB 12:24
PROVIDERS: PCP General Practice; Visit Provider Internal Medicine Gastroenterology
DX: K31.84 Gastroparesis (principal); R79.82 Elevated C-reactive protein (CRP)
CPT/HCPCS: 36415; 84181; 86038; 86039; 86255; 86256

== ENCOUNTER 2021-09-11 19:42 | Emergency (ER) | payer MEDICAID, SELFPAY ==
--- NOTE | ~2021-09-11 | XR_ITS ---
EXAMINATION: XR WRIST, LEFT CLINICAL INFORMATION: Injury. COMPARISON: None. TECHNIQUE: Four views of the left wrist. FINDINGS: No acute fractures or malalignment. The scapholunate interval and carpal rows are maintained. No unexpected radiopaque foreign bodies or subcutaneous air. XR/XR wrist LT 2V IMPRESSION: No acute fractures or malalignment. If pain persist or worsens, consider an interval imaging as early nondisplaced fractures can be radiographically occult.
--- NOTE | ~2021-09-11 | XR_ITS ---
EXAMINATION: XR CHEST CLINICAL INFORMATION: Injury. COMPARISON: Chest radiograph dated from 02/14/2021. TECHNIQUE: 2 views of the chest were obtained. FINDINGS: No significant abnormality is noted involving the heart, lungs, mediastinum, bony thorax or soft tissues. XR/XR chest 2V IMPRESSION: No acute cardiopulmonary findings. No evidence of acutely displaced rib fractures.
[2021-09-11 20:31] VITALS: BP 156/94; PULSE 93; RESP 20; O2SAT 98; BMI 30.9
[2021-09-11 22:48] VITALS: BP 150/87; PULSE 80; RESP 20; TEMP 36.8; O2SAT 100
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
[2021-09-11] MEDS: traMADoL HCL 50 MG TABLET PO (23:17)
== END 2021-09-11 23:28 | disposition home or self-care (01) ==
LOC: HO.ED 23:26
PROVIDERS: Emergency Provider Internal Medicine
DX: R07.9 Chest pain, unspecified (principal); M25.532 Pain in left wrist; Z79.899 Other long term (current) drug therapy
CPT/HCPCS: 71046; 73100; 99283; 99284

== ENCOUNTER 2022-02-13 15:08 | Inpatient (IN) | payer MEDICAID, SELFPAY ==
--- NOTE | ~2022-02-13 | CT_ITS ---
EXAMINATION: CT HEAD WITHOUT CONTRAST CLINICAL INFORMATION: Dizziness, falls. COMPARISON: None TECHNIQUE: Contiguous axial imaging was performed from the skull base to vertex without intravenous administration of contrast. This CT examination was performed using dose optimization techniques as appropriate, variously including the following: *Automated exposure control *Adjustment of mA and/or kV according to patient size (this includes techniques or standardized protocols for targeted exams where dose is matched to indication/reason for exam; i.e. extremities or head) *Use of iterative reconstruction technique DLP: 638 mGy-cm FINDINGS: There is no evidence of acute intracranial hemorrhage or territorial infarction. No abnormal mass effect or midline shift is seen. Barrera to white matter differentiation is well preserved. No extra-axial fluid collections are identified. The ventricles are normal in size. There is no abnormal attenuation within the brain parenchyma. The osseous structures and soft tissues are normal. The mastoid air cells and visualized portions of the paranasal sinuses are well aerated. CT/CT head/brain wo con IMPRESSION: No CT evidence of acute intracranial hemorrhage or edematous territorial infarction.
--- NOTE | ~2022-02-13 | MR_ITS ---
EXAMINATION: MRI BRAIN WITHOUT CONTRAST CLINICAL INFORMATION: Weakness and lower extremities. COMPARISON: CT scan of the head 02/13/2022, 08/18/2010. TECHNIQUE: Multiplanar MR imaging of the brain was performed without contrast. 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 Otherwise no intracranial mass effect or midline shift. No abnormal extra-axial collection. Lateral and third ventricles are normal. No hydroceles. Midline structures including the cervicomedullary junction are normal. No acute bone marrow signal changes. There are a few scattered nonspecific foci of T2 FLAIR signal hyperintensity within the periventricular white matter. No acute territorial infarct. No pathological magnetic susceptibility artifact. Intracranial vascular flow voids are maintained. There is a small left mastoid effusion. Mild to moderate paranasal sinus disease. Globes and orbits are symmetric. 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 Otherwise unremarkable examination. No evidence of acute territorial infarct or hemorrhage. No intracranial mass effect or hydrocephalus.
--- NOTE | ~2022-02-13 | XR_ITS ---
EXAMINATION: XR CHEST CLINICAL INFORMATION: Chest pain. Rule out pneumonia COMPARISON: Chest 09/11/2021 TECHNIQUE: Frontal view of the chest was obtained. FINDINGS: No significant abnormality is noted involving the heart, lungs, mediastinum, bony thorax or soft tissues. XR/XR chest 1V IMPRESSION: Unremarkable chest examination.
[2022-02-13 15:57] VITALS: BP 135/69; PULSE 48; RESP 18; TEMP 36.9; O2SAT 100; BMI 31.4
--- NOTE | 2022-02-13 16:11 | ECG_ITS ---
Test Reason : DIZZINESS Blood Pressure : / mmHG Vent. Rate : 042 BPM Atrial Rate : 042 BPM P-R Int : 150 ms QRS Dur : 084 ms QT Int : 476 ms P-R-T Axes : 057 019 025 degrees QTc Int : 397 ms Marked sinus bradycardia Abnormal ECG When compared with ECG of 08-NOV-2010 14:03, Vent. rate has decreased BY 84 BPM Referred By: Generic ED Physician Electronically Signed By:Richy Juarez
[2022-02-13 17:34] LABS: MANUAL DIFF FLAG NO
[2022-02-13 17:35] LABS: Basophils Percent Auto 0.6 % (0-2); Eosinophils Absolute Auto 0.4 X10*3/uL (0.0-0.4); Eosinophils Percent Auto 5.7 % (0-4); Hematocrit 34.8 % (37.0-47.0); Hemoglobin 11.1 g/dl (12.0-16.0); Imm Gran Abs Auto 0.01 X10*3/uL (0.00-0.03); Imm Gran Pct Auto 0.1 % (0.0-0.4); Lymphocytes Absolute Auto 2.2 X10*3/uL (1.2-4.9); Lymphocytes Percent Auto 31.1 % (20-40); Mean Corpuscular HGB Conc 31.9 g/dl (31.0-35.0); Mean Corpuscular Hemoglobin 27.4 pg (27.0-33.0); Mean Corpuscular Volume 85.9 fL (80.0-98.0); Mean Platelet Volume 9.8 fL (9.4-12.3); Monocytes Absolute Auto 0.5 X10*3/uL (0.1-1.2); Monocytes Percent Auto 7.1 % (2-11); Neutrophils Percent Auto 55.4 % (45-73); Platelet Count 268 X10*3/uL (160-400); Red Blood Count 4.05 X10*6/uL (4.20-5.50); Red Cell Distribution Width 15.6 % (11.0-16.0); White Blood Count 7.2 X10*3/uL (4.8-10.8)
[2022-02-13 17:59] LABS: Alanine Aminotransferase 19 U/L (0-31); Alkaline Phosphatase 86 U/L (39-117); Anion Gap 12 (12-20); Aspartate Amino Transferase 23 U/L (5-31); Bilirubin Total 0.3 mg/dL (0.0-1.0); Blood Urea Nitrogen 6 mg/dL (9-16); Calcium 10.9 mg/dL (8.4-10.2); Carbon Dioxide 29 mmol/L (22-29); Chloride 103 mmol/L (96-108); Creatinine Clr Calc Pharmacy 79.8; Estimated Glomerular Filt Rate > 60; Glucose Random 105 mg/dL (60-115); Potassium 3.9 mmol/L (3.3-5.1); Sodium 140 mmol/L (135-145); Total Protein 7.3 g/dL (6.5-8.0)
[2022-02-13 18:01] LABS: Troponin-I High Sensitivity < 3.5 ng/L (<3.5-17.0)
--- NOTE | 2022-02-13 20:26 | ED_ITS ---
HPI - Dizziness General Chief Complaint: Dizziness Stated Complaint: head injury Time Seen by Provider: 02/13/22 16:55 Source: patient Mode of arrival: ambulatory Limitations: no limitations History of Present Illness HPI Narrative: This is a 56-year-old female with a history of hypertension, anxiety, depression, hx hep c presenting to the emergency department with complaints of weakness, frequent falls, dizziness x4 weeks worsening. Patient tells me that her main concern is weakness and she has been having issues as she lives by herself. She reports she has fallen anywhere between 7-8 times over the past 4 weeks. She tells me that 4 weeks ago it started with her feeling like she was dragging her feet and had weakness to bilateral ankles she tells me at this time her main concern is her knees. She tells me she feels like they just give out and she just suddenly falls, no warning signs. Patient also tells me that she has been experiencing dizziness that has been going on for a while she tells me that it is worse with positional changes and describes it as the room spinning. Patient tells me that she has no personal history of Guillian Naqvi or multiple sclerosis. However she does tell me that her mother has multiple sclerosis. She denies any recent tick bites, surgical procedures. Patient tells me she does have the COVID in flu shot. She has never had issues with immunizations in the past. Patient denies chest pain, shortness of breath, vomiting, abdominal pain, vision changes, neck pain, fevers and chills. MD elicited complaint: dizziness, lightheadedness and other (Fall) Onset (ago): week(s) (4) Timing: constant Severity: severe Description: room spinning History of similar symptoms: Yes Exacerbating factors: movement/ambulation and change in body position Associated neuro symptoms: limb weakness Related Data Home Medications Medication Instructions Recorded Confirmed baclofen 10 mg tablet 10 mg PO TID PRN 09/05/20 02/13/22 hydrochlorothiazide 25 mg tablet 25 mg PO DAILY 09/05/20 02/13/22 loratadine 10 mg tablet 10 mg PO DAILY 09/05/20 02/13/22 quetiapine 100 mg tablet (Seroquel) 100 mg PO BEDTIME 09/05/20 02/13/22 zolpidem 10 mg tablet (Ambien) 5 mg PO BEDTIME PRN 09/05/20 02/13/22 cholecalciferol (vitamin D3) 50 50 mcg PO DAILY 08/27/21 02/13/22 mcg (2,000 unit) tablet lisinopril 20 mg tablet 20 mg PO DAILY 08/27/21 02/13/22 albuterol sulfate 90 mcg/actuation 2 puff INHALATION QID PRN 02/13/22 02/13/22 aerosol inhaler atorvastatin 80 mg tablet 80 mg PO BEDTIME 02/13/22 02/13/22 clonidine HCl 0.2 mg tablet 1 tab PO BID 02/13/22 02/13/22 fluticasone propionate 110 2 puff INHALATION BID 02/13/22 02/13/22 mcg/actuation HFA aerosol inhaler (Flovent HFA) quetiapine 25 mg tablet (Seroquel) 1 tab PO BID 02/13/22 02/13/22 sumatriptan succinate 100 mg tablet 100 mg PO DAILY MRX1 PRN 02/13/22 02/13/22 Previous Rx's Medication Instructions Recorded linaclotide 290 mcg capsule 290 mcg PO DAILY #60 cap 12/09/21 (Linzess) buspirone 5 mg tablet 5 mg PO BID #60 tab 12/30/21 Allergies Allergy/AdvReac Type Severity Reaction Status Date / Time No Known Allergies Allergy Verified 02/13/22 15:57 Review of Systems Review of Systems: Constitutional : No Weight loss, No Fever, No Chills, + Fatigue, + Malaise ENT/Mouth : No sore throat, No Rhinorrhea Eyes: No Eye Pain, No Swelling, No Redness Cardiovascular : No Chest Pain, No SOB, No Dyspnea on Exertion, No Orthopnea, No Edema, No Palpitations Respiratory : No Cough, No Sputum, No Wheezing Gastrointestinal : No Nausea, No Vomiting, No Diarrhea, No Constipation, No abdominal Pain, No Hematochezia, No Melena Genitourinary : No Dysuria, No Urinary Frequency, No Hematuria, Musculoskeletal : No joint pain, + Myalgias, No Joint Swelling Skin : No Skin Lesions, No rash Neuro : + Weakness, No Numbness, + Dizziness, + Headache Psych : No Anxiety/Panic, No Depression All other systems reviewed and are negative Yes all other systems are reviewed and are negative PMFSH Past Medical History Attestation statement: The following information was validated with the patient. Source: old records reviewed and nursing notes reviewed Medical History Anxiety Asthma Depression GERD (gastroesophageal reflux disease) Hx of hepatitis C Hypertension Hypothyroid Migraines Surgical History History of colonoscopy History of esophagogastroduodenoscopy (EGD) History of nasal surgery History of tubal ligation Family History Family History Father No problems noted. Mother HTN (hypertension) Social History Social History Household Members: None Are you a primary resident care director to a significant other at home: No Do you presently have visiting nurse or other home services: No Alcohol intake: current Alcohol intake frequency: holidays/special occasions only Patient Tobacco Use Status: Never used Tobacco Advance Directives: No Advance Directives Information Provided: Yes Physical Exam Vital Signs: Vital Signs: Last Vital Signs Temp 98.7 F 02/13/22 23:14 Pulse 50 02/13/22 23:14 Resp 18 02/13/22 23:14 BP 104/52 L 02/13/22 23:14 Pulse Ox 98 02/13/22 23:14 BMI result Body Mass Index 31.4 Vital signs stable Appearance: Alert.? Oriented X3.? No acute distress.? Head: Normocephalic, atraumatic, no step-offs or deformities Eyes: Pupils equal, round and reactive to light.? Extraocular movements intact. No nystagmus. Visual jalloh by confrontation intact. ENT: Pharynx normal.? Neck: Normal inspection.? Neck supple.? No meningeal signs. CVS: Normal heart rate and rhythm.? Pulses normal.? Respiratory: No respiratory distress.? Breath sounds normal.? Abdomen: Soft and nontender.? Skin: Skin warm and dry.? Normal skin color.? Normal skin turgor.? Extremities: No lower extremity edema.? No calf ttp. 5/5 strength to bilateral upper and lower extremities Neuro: Oriented X 3.? No motor deficit.? No sensory deficit. CN 2-12 intact . Normal hwaaen-pm-kaff, gaip-an-unlo, steady tandem gait. 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 Negative pronator drift b/l. 1+ patellar reflexes b/l. Slow gait with slight shuffle, appears unsteady, Course Reevaluation(s) Reevaluation #1: CBC around patient's baseline. Chemistry with no acute electrolyte abnor malities requiring intervention. Troponin negative, EKG nonischemic unlikely ACS. UA is likely contaminated, low suspicion for infection as she does not have any urinary symptoms. COVID negative. Patient's EKG is noted to have sinus bradycardia therefore will obtain orthostatic vital signs to rule out orthostatic hypotension. Head CT with no acute finding, no signs of intracranial hemorrhage or edematous territorial infarct. Time: 20:31 Reevaluation #2: Verbal and written consent obtained. And in patient's chart Time: 21:13 Reevaluation #3: A lumbar puncture was done using sterile technique on this patient I tried myself, patient was moving a lot, unable to successfully get lumbar puncture due to movement, we obtained more staff members to help old patient in the proper position as she was nervous, and moving which made this procedure very hard. My attending was able to succesfully get LP. No complications. Time: 22:48 Additional Reevaluation(s): I went to evaluate patient, she remains well, no headache, no dizziness no numbness or tingling. He tells me she feels good. At this time patient will be admitted to the hospitalist team. MDM - Dizziness MDM Narrative Medical decision making narrative: 2028 56-year-old female presents with dizziness, frequent falls, headache x3 weeks worsening. No personal history of MS or Guillain-Brarre. Mother does have MS. Physical examination significant for diminished patellar reflexes bilaterally. Patient is noted to have a slow rate normal rhythm likely sinus bradycardia. Lungs clear. Extraocular movements intact, pupils equal round and reactive. Neuro exam nonfocal. Unable to appreciate weakness to lower extremities. Based off patient history and physical examination likely positional vertigo vertigo. However history and physical examination concerning for Guillain-Elizabeth as well as multiple sclerosis as mom has a history of an patient has sustained frequent falls over the past 4 weeks and is experiencing ascending weakness. Unlikely that this is intracranial hemorrhage or posterior infarct as she has normal cerebellar function is ambulating with steady gait. Will rule out ICH. Patient had no preceding symptoms to falls no chest pain or shortness of breath unlikely PE or ACS. Will rule out electrolyte abnormalities as well. Unlikely meningitis. Plan at this time is labs, imaging, urine, LP Medical Records Attestation: I reviewed the patient's medical records. Lab Data Attestation: I reviewed the patient's lab results. Result diagrams: 02/13/22 17:27 02/13/22 17: Labs: Lab Results 02/13/22 02/13/22 02/13/22 Range/Units 17: 17: 17: WBC 7.2 (4.8-10.8) X10*3/uL RBC 4.05 L (4.20-5.50) X10*6/uL Hgb 11.1 L (12.0-16.0) g/dl Hct 34.8 L (37.0-47.0) % MCV 85.9 (80.0-98.0) fL MCH 27.4 (27.0-33.0) pg MCHC 31.9 (31.0-35.0) g/dl RDW 15.6 (11.0-16.0) % Plt Count 268 (160-400) X10*3/uL MPV 9.8 (9.4-12.3) fL Immature Gran % (Auto) 0.1 (0.0-0.4) % Neut % (Auto) 55.4 (45-73) % Lymph % (Auto) 31.1 (20-40) % [place] % (Auto) 7.1 (2-11) % Eos % (Auto) 5.7 H (0-4) % Baso % (Auto) 0.6 (0-2) % Lymph # (Auto) 2.2 (1.2-4.9) X10*3/uL [place] # (Auto) 0.5 (0.1-1.2) X10*3/uL Eos # (Auto) 0.4 (0.0-0.4) X10*3/uL Baso # (Auto) 0.0 (0.0-0.2) X10*3/uL Abs Immat Gran (auto) 0.01 (0.00-0.03) X10*3/uL Absolute Neuts (auto) 4.0 (2.0-8.3) x10*3/uL Absolute Nucleated RBC 0.000 (0.0-0.012) X10*3/uL Nucleated RBC % (auto) 0.0 (0.0-0.2) /100WBC ESR (0-20) MM/HR Sodium 140 (135-145) mmol/L Potassium 3.9 (3.3-5.1) mmol/L Chloride 103 (96-108) mmol/L Carbon Dioxide 29 (22-29) mmol/L Anion Gap 12 (12-20) BUN 6 L D (9-16) mg/dL Creatinine 0.84 (0.5-1.4) mg/dL Estim Creat Clear Calc 79.8 Estimated GFR > 60 Random Glucose 105 (60-115) mg/dL Calcium 10.9 H D (8.4-10.2) mg/dL Total Bilirubin 0.3 (0.0-1.0) mg/dL AST 23 (5-31) U/L ALT 19 (0-31) U/L Alkaline Phosphatase 86 D (39-117) U/L Troponin I High Sens < 3.5 (<3.5-17.0) ng/L C-Reactive Protein 0.15 (< or = 0.50) mg/dL Total Protein 7.3 (6.5-8.0) g/dL Albumin 4.0 (3.5-5.0) g/dL 02/13/ Range/Units 17:27 WBC (4.8-10.8) X10*3/uL RBC (4.20-5.50) X10*6/uL Hgb (12.0-16.0) g/dl Hct (37.0-47.0) % MCV (80.0-98.0) fL MCH (27.0-33.0) pg MCHC (31.0-35.0) g/dl RDW (11.0-16.0) % Plt Count (160-400) X10*3/uL MPV (9.4-12.3) fL Immature Gran % (Auto) (0.0-0.4) % Neut % (Auto) (45-73) % Lymph % (Auto) (20-40) % [place] % (Auto) (2-11) % Eos % (Auto) (0-4) % Baso % (Auto) (0-2) % Lymph # (Auto) (1.2-4.9) X10*3/uL [place] # (Auto) (0.1-1.2) X10*3/uL Eos # (Auto) (0.0-0.4) X10*3/uL Baso # (Auto) (0.0-0.2) X10*3/uL Abs Immat Gran (auto) (0.00-0.03) X10*3/uL Absolute Neuts (auto) (2.0-8.3) x10*3/uL Absolute Nucleated RBC (0.0-0.012) X10*3/uL Nucleated RBC % (auto) (0.0-0.2) /100WBC ESR 10 (0-20) MM/HR Sodium (135-145) mmol/L Potassium (3.3-5.1) mmol/L Chloride (96-108) mmol/L Carbon Dioxide (22-29) mmol/L Anion Gap (12-20) BUN (9-16) mg/dL Creatinine (0.5-1.4) mg/dL Estim Creat Clear Calc Estimated GFR Random Glucose (60-115) mg/dL Calcium (8.4-10.2) mg/dL Total Bilirubin (0.0-1.0) mg/dL AST (5-31) U/L ALT (0-31) U/L Alkaline Phosphatase (39-117) U/L Troponin I High Sens (<3.5-17.0) ng/L C-Reactive Protein (< or = 0.50) mg/dL Total Protein (6.5-8.0) g/dL Albumin (3.5-5.0) g/dL ECG Data Attestation: I personally reviewed and interpreted this ECG as follows: ECG interpretation date: 02/13/22 ECG interpretation time: 20:46 Prior ECG tracings: available for review Interpretation: Ventricular rate of 42, [place] normal, QRS normal, QT/QTC normal. EKG shows sinus bradycardia, when compared to previous EKGs sinus bradycardia was not present. No signs of acute ischemia at this time. Critical Care Time Critical Care Time Critical Care Time: Yes Total Critical Care Time: 120 Attestation: I attest to this time spent taking care of the patient, obtaining history, physical, reviewing labs, imaging, speaking to my attending, speaking to specialist. Discharge Plan Discharge Clinical Impression: Weakness, Frequent falls, Dizziness Patient Disposition: Still a Patient
[2022-02-13 20:41] VITALS: BP 177/77; PULSE 57; RESP 18; TEMP 37.1; O2SAT 97
[2022-02-13 20:44] VITALS: BP 117/77; PULSE 57
[2022-02-13 20:45] VITALS: BP 151/51; PULSE 51
[2022-02-13 20:46] VITALS: BP 110/71; PULSE 59
[2022-02-13 21:11] LABS: C Reactive Protein 0.15 mg/dL (< or = 0.50)
[2022-02-13] MEDS: Heparin Sodium,Porcine 5,000 UNIT/ML VIAL 5000 UNIT SUBCUT (21:14)
[2022-02-13] MEDS: Meclizine HCl 25 MG TABLET PO (21:14)
[2022-02-13] MEDS: 0.9 % Sodium Chloride 1,000 ML 999 ML IV ×2 (21:21→21:37)
[2022-02-13] MEDS: Acetaminophen 325 MG TABLET 650 MG PO (21:28)
[2022-02-13 21:39] LABS: Erythrocyte Sedimentation Rate 10 MM/HR (0-20)
--- NOTE | 2022-02-13 21:54 | PHA.MEDREC ---
Pharmacy Consult ? Medication Reconciliation Pharmacy has completed the medication reconciliation. Pt had list. She confirms she takes buspar and linzess in addition to the list. She is no longer taking propanolol, magnesium, lexapro. Refill history shows non adherence, but patient is adamant she takes meds daily
--- NOTE | 2022-02-13 22:57 | P.HPHOSP_ITS ---
History of Present Illness Date of Service: 02/13/22 Chief Complaint: falls 56-year-old female with a past medical history of hypertension, anxiety, depression, hep C, gastroparesis, migraine headaches, hypothyroidism, GERD presented to the hospital today with a chief complaint of generalized weakness and falls. Patient reports that over the past 4 weeks she has been not feeling well; over the past 3 weeks she has not been not eating well; reports he has decreased appetite; mentions that she feels generally weak and had at least 7-8 times, she had a fall; mentions that she felt lightheaded; followed by legs give away and then fell on the ground; dip is any head strike or loss of consciousness. Denies any fever chills cough or urinary symptoms. Denies any recent travel or sick contacts. Denies any numbness tingling or focal weakness. Denies any back pain. Review of all other systems is negative except mentioned above ER course: Per ER team patient noted to have decreased patellar reflexes but otherwise nonfocal examination; CT head showed no acute findings; Patient had a LP done-results pending; admitted to the hospital for further management [facility] Medical History Anxiety Asthma Depression GERD (gastroesophageal reflux disease) Hx of hepatitis C Hypertension Hypothyroid Migraines Family History Father No problems noted. Mother HTN (hypertension) Surgical History History of colonoscopy History of esophagogastroduodenoscopy (EGD) History of nasal surgery History of tubal ligation Social History Household Members: None Are you a primary patient care secretary to a significant other at home: No Do you presently have visiting nurse or other home services: No Alcohol intake: current Alcohol intake frequency: holidays/special occasions only Patient Tobacco Use Status: Never used Tobacco Advance Directives: No Advance Directives Information Provided: Yes Meds Allergies Allergy/AdvReac Type Severity Reaction Status Date / Time No Known Allergies Allergy Verified 02/13/22 15:57 Active Medications: Current Medications Acetaminophen (Acetaminophen 325 Mg Tablet) 650 mg PO Q6H PRN PRN Reason: Pain, Mild (Pain Scale 1-3) Last Admin: 02/13/22 21:28 Dose: 650 mg Documented by: Albuterol Sulfate (Albuterol Sulfate 90 Mcg 8 Gm Inhaler) 2 puff INHALE QID PRN PRN Reason: Wheezing Atorvastatin Calcium (Atorvastatin Calcium 80 Mg Tablet) 80 mg PO BEDTIME LAILA Baclofen (Baclofen 10 Mg Tablet) 10 mg PO TID PRN PRN Reason: Muscle Spasm Buspirone HCl (Buspirone Hcl 5 Mg Tablet) 5 mg PO BID LAILA Clonidine HCl (Clonidine Hcl 0.2 Mg Tablet) 0.2 mg PO BID LAILA; Protocol Heparin Sodium (Porcine) (Heparin Sodium,Porcine 5,000 Unit/Ml Vial) 5,000 unit SUBCUT Q8H [facility] Last Admin: 02/13/22 21:14 Dose: 5,000 unit Documented by: Hydrochlorothiazide (Hydrochlorothiazide 25 Mg Tablet) 25 mg PO DAILY LAILA; Protocol Lisinopril (Lisinopril 20 Mg Tablet) 20 mg PO DAILY LAILA; Protocol Loratadine (Loratadine 10 Mg Tablet) 10 mg PO DAILY [facility] Melatonin (Melatonin 3 Mg Tablet) 6 mg PO BEDTIME PRN PRN Reason: Insomnia Quetiapine Fumarate (Quetiapine Fumarate 25 Mg Tablet) 25 mg PO BID [facility] Quetiapine Fumarate (Quetiapine Fumarate 100 Mg Tablet) 100 mg PO BEDTIME [facility] Senna (Sennosides 8.6 Mg Tablet) 17.2 mg PO BEDTIME PRN PRN Reason: Constipation Sodium Chloride (0.9 % Sodium Chloride Flush 3 Ml Syringe) 3 ml IVFLUSH QSHIFT [facility] Sumatriptan Succinate (Sumatriptan Succinate 100 Mg Tablet) 100 mg PO DAILY MRX1 PRN PRN Reason: headaches Vitamin D (Cholecalciferol (Vitamin D3) 25 Mcg Tablet) 50 mcg PO DAILY [facility] Zolpidem Tartrate (Zolpidem Tartrate 5 Mg Tablet) 5 mg PO BEDTIME PRN PRN Reason: Sleep Home Medications Medication Instructions Recorded Confirmed Last Taken Type baclofen 10 mg tablet 10 mg PO TID PRN 09/05/20 02/13/22 02/13/22 History hydrochlorothiazide 25 mg tablet 25 mg PO DAILY 09/05/20 02/13/22 02/13/22 History loratadine 10 mg tablet 10 mg PO DAILY 09/05/20 02/13/22 02/13/22 History quetiapine 100 mg tablet (Seroquel) 100 mg PO BEDTIME 09/05/20 02/13/22 02/12/22 History zolpidem 10 mg tablet (Ambien) 5 mg PO BEDTIME PRN 09/05/20 02/13/22 Unknown History cholecalciferol (vitamin D3) 50 50 mcg PO DAILY 08/27/21 02/13/22 02/13/22 History mcg (2,000 unit) tablet lisinopril 20 mg tablet 20 mg PO DAILY 08/27/21 02/13/22 02/13/22 History albuterol sulfate 90 mcg/actuation 2 puff INHALATION QID PRN 02/13/22 02/13/22 Unknown History aerosol inhaler atorvastatin 80 mg tablet 80 mg PO BEDTIME 02/13/22 02/13/22 02/12/22 History clonidine HCl 0.2 mg tablet 1 tab PO BID 02/13/22 02/13/22 02/13/22 History fluticasone propionate 110 2 puff INHALATION BID 02/13/22 02/13/22 02/13/22 History mcg/actuation HFA aerosol inhaler (Flovent HFA) quetiapine 25 mg tablet (Seroquel) 1 tab PO BID 02/13/22 02/13/22 02/13/22 History sumatriptan succinate 100 mg tablet 100 mg PO DAILY MRX1 PRN 02/13/22 02/13/22 Unknown History Physical Exam Vital Signs and Narrative: Vital Signs: Last Vital Signs Temp 98.7 F 02/13/22 20:41 Pulse 59 02/13/22 20:46 Resp 18 02/13/22 20:41 BP 110/71 02/13/22 20:46 Pulse Ox 97 02/13/22 20:41 BMI result Body Mass Index 31.4 Gen: Appears be in no acute distress HEENT: NCAT, Moist mucosa. Pulmonary: Vesicular breath sounds, fair air entry CVS: Normal S1-S2 Abdomen: BS+, Soft, Nontender Extremities: Warm well perfused Neuro: Alert and awake. Nonfocal; normal [id number] and [id number] test; upon standing up to test the gait patient was unsteady and reported dizziness with room spinning. Results Labs CBC and Chem 7: 05/26/22 17:27 02/13/22 17:27 Labs: Laboratory Results - last 24 hr 02/13/22 02/13/22 02/13/22 17:27 17: 17:27 MCV 85.9 MCH 27.4 MCHC 31.9 RDW 15.6 Plt Count 268 MPV 9.8 Immature Gran % (Auto) 0.1 Neut % (Auto) 55.4 Lymph % (Auto) 31.1 [place] % (Auto) 7.1 Eos % (Auto) 5.7 H Baso % (Auto) 0.6 Lymph # (Auto) 2.2 [place] # (Auto) 0.5 Eos # (Auto) 0.4 Baso # (Auto) 0.0 Abs Immat Gran (auto) 0.01 Absolute Neuts (auto) 4.0 Absolute Nucleated RBC 0.000 Nucleated RBC % (auto) 0.0 ESR Anion Gap 12 Estim Creat Clear Calc 79.8 Estimated GFR > 60 Random Glucose 105 Calcium 10.9 H D Total Bilirubin 0.3 AST 23 ALT 19 Alkaline Phosphatase 86 D Troponin I High Sens < 3.5 C-Reactive Protein 0.15 Total Protein 7.3 Albumin 4.0 02/13/22 17:27 MCV MCH MCHC RDW Plt Count MPV Immature Gran % (Auto) Neut % (Auto) Lymph % (Auto) [place] % (Auto) Eos % (Auto) Baso % (Auto) Lymph # (Auto) [place] # (Auto) Eos # (Auto) Baso # (Auto) Abs Immat Gran (auto) Absolute Neuts (auto) Absolute Nucleated RBC Nucleated RBC % (auto) ESR 10 Anion Gap Estim Creat Clear Calc Estimated GFR Random Glucose Calcium Total Bilirubin AST ALT Alkaline Phosphatase Troponin I High Sens C-Reactive Protein Total Protein Albumin Imaging Radiologist's Impressions: Impressions Head CT 02/13/22 16:46 IMPRESSION: No CT evidence of acute intracranial hemorrhage or edematous territorial infarction. Chest X-Ray 02/13/22 21:09 IMPRESSION: Unremarkable chest examination. Assessment and Plan (1) Weakness: Status: Acute (2) Frequent falls: Status: Acute Plan 56-year-old female with a past medical history of hypertension, anxiety, depression, hep C, gastroparesis, migraine headaches, hypothyroidism, GERD pre sented to the hospital today with a chief complaint of generalized weakness and falls. Noted to have following conditions Generalized weakness: Likely in setting of dehydration as patient reported poor oral intake for the past few weeks. Noted to have calcium level of 10.9. IV fluids Fall precautions PT/OT Dizziness: Patient reports room spinning upon standing up. Meclizine trial Also could be secondary to polypharmacy-will defer to the day team to titrate down on her medications Seroquel, zolpidem, clonidine, HCTZ at the time of discharge. Syncope: EKG nonischemic. Troponin negative. Orthostatic vitals were positive. Gentle IV fluids. Patient noted to be bradycardic on telemetry. Cardiology consult Recurrent falls: Unclear etiology. Exam grossly nonfocal. Cerebellar signs negative. CT head showed no acute findings. LP done in the ER-results pending Neurology consult for further recommendations History of anxiety/depression: Continue home medications including buspirone, clonidine (dose reduced to 0.1mg BID from 0.2mg BID), Seroquel (dose reduced to 50mg qhs only from 100mg qhs and 25mg BID ) History of hypertension: Hold home hydrochlorothiazide, lisinopril for now. DVT prophylaxis: Subcu heparin Code status: Full code Quality Stroke Does the patient have a stroke diagnosis?: No VTE Prior VTE?: No VTE Risk Level:: Medical - moderate - high VTE Device Contraindication: Treatment Not Indicated VTE Drug Contraindication: N/A - Med Ordered
[2022-02-13 23:14] VITALS: BP 104/52; PULSE 50; RESP 18; TEMP 37.1; O2SAT 98
[2022-02-13 23:17] LABS: CSF Appearance Clear, Colorless; Glucose CSF 63 mg/dL; Total Protein CSF 47.1 mg/dL (15-45)
[2022-02-13 23:18] LABS: Appearance CSF CLEAR; CSF Tube # 1; CSF Tube # 4; Color CSF COLORLESS; Lymphocytes CSF 57 %; Neutrophils CSF 0 %; Red Blood Cell CSF 2 MM*3; White Blood Cell CSF 0 MM*3
[2022-02-13 23:19] LABS: CSF Monos 43 %; CSF Other Cells % 0 %
[2022-02-13 23:59] LABS: Vitamin D 25-OH Total 23.5 ng/mL (>30)
[2022-02-14] VITALS (11 sets, daily range): BP systolic 93–158; BP diastolic 43–78; PULSE 40–56; RESP 14–18; TEMP 36.6–37.1; O2SAT 97–100
[2022-02-14] MEDS: 0.9 % Sodium Chloride Flush 3 ML SYRINGE IVFLUSH (01:13)
[2022-02-14 01:34] LABS: COVID-19 Test Negative (Negative); IDNOW Serial# 16C4AD1C
[2022-02-14] MEDS: Heparin Sodium,Porcine 5,000 UNIT/ML VIAL 5000 UNIT SUBCUT ×2 (05:28→17:45)
[2022-02-14] MEDS: 0.9 % Sodium Chloride 1,000 ML 100 ML IVCONT ×2 (06:39→16:40)
[2022-02-14 07:07] LABS: MANUAL DIFF FLAG NO
[2022-02-14 07:09] LABS: Basophils Percent Auto 0.6 % (0-2); Eosinophils Absolute Auto 0.5 X10*3/uL (0.0-0.4); Eosinophils Percent Auto 7.2 % (0-4); Hematocrit 31.4 % (37.0-47.0); Hemoglobin 9.9 g/dl (12.0-16.0); Imm Gran Abs Auto 0.01 X10*3/uL (0.00-0.03); Imm Gran Pct Auto 0.2 % (0.0-0.4); Lymphocytes Absolute Auto 3.3 X10*3/uL (1.2-4.9); Lymphocytes Percent Auto 50.8 % (20-40); Mean Corpuscular HGB Conc 31.5 g/dl (31.0-35.0); Mean Corpuscular Hemoglobin 27.3 pg (27.0-33.0); Mean Corpuscular Volume 86.7 fL (80.0-98.0); Monocytes Absolute Auto 0.5 X10*3/uL (0.1-1.2); Monocytes Percent Auto 7.6 % (2-11); Neutrophils Absolute Auto 2.2 x10*3/uL (2.0-8.3); Neutrophils Percent Auto 33.6 % (45-73); Platelet Count 220 X10*3/uL (160-400); Red Blood Count 3.62 X10*6/uL (4.20-5.50); Red Cell Distribution Width 15.7 % (11.0-16.0); White Blood Count 6.6 X10*3/uL (4.8-10.8)
[2022-02-14 07:30] LABS: Anion Gap 10 (12-20); Blood Urea Nitrogen 7 mg/dL (9-16); Calcium 9.3 mg/dL (8.4-10.2); Carbon Dioxide 27 mmol/L (22-29); Chloride 108 mmol/L (96-108); Creatinine Clr Calc Pharmacy 81.8; Estimated Glomerular Filt Rate > 60; Glucose Random 103 mg/dL (60-115); Magnesium 1.6 mg/dL (1.6-2.6); Sodium 141 mmol/L (135-145)
[2022-02-14 08:00] LABS: Folate 8.1 ng/mL (> or = 4.0); Vitamin B12 518 pg/mL (200-900)
[2022-02-14] MEDS: Loratadine 10 MG TABLET PO (08:13)
[2022-02-14] MEDS: busPIRone HCl 5 MG TABLET PO ×2 (08:13→20:37)
[2022-02-14] MEDS: lisinopriL 20 MG TABLET PO (08:13)
[2022-02-14] MEDS: Cholecalciferol (Vitamin D3) 25 MCG TABLET 50 MCG PO (08:13)
[2022-02-14] MEDS: cloNIDine HCL 0.1 MG TABLET PO ×2 (08:14→20:37)
--- NOTE | 2022-02-14 09:04 | PM.CNCAR ---
History of Present Illness History of Present Illness Date of Service: 02/14/22 Requesting physician: Rob Wang Chief complaint: Dizziness, sinus bradycardia Narrative: 56-year-old female who is presenting for dizziness and lower extremity weakness. She has been experiencing leg weakness for the last couple of weeks. She said she was trying to get out of bed and felt that her legs are weak. She also has background of gastroparesis. She was noted to be bradycardic in the 40s. This is mostly sinus bradycardia and there is no block noticed on EKG or telemetry. When she is awake her heart rate is ranging between 50s to 60s. She is on clonidine 0.1 mg twice a day. She has no chest pain or any shortness of breath right now. [facility] Past Medical History Medical History Anxiety Asthma Depression GERD (gastroesophageal reflux disease) Hx of hepatitis C Hypertension Hypothyroid Migraines Family History Family History Father No problems noted. Mother HTN (hypertension) Surgical History Surgical History History of colonoscopy History of esophagogastroduodenoscopy (EGD) History of nasal surgery History of tubal ligation Social History Social History Household Members: None Are you a primary residential care facility manager to a significant other at home: No Do you presently have visiting nurse or other home services: No Alcohol intake: current Alcohol intake frequency: holidays/special occasions only Patient Tobacco Use Status: Never used Tobacco Advance Directives: No Advance Directives Information Provided: Yes Meds Allergies Allergy/AdvReac Type Severity Reaction Status Date / Time No Known Allergies Allergy Verified 02/13/22 15:57 Active Medications: Current Medications Acetaminophen (Acetaminophen 325 Mg Tablet) 650 mg PO Q6H PRN PRN Reason: Pain, Mild (Pain Scale 1-3) Last Admin: 02/13/22 21:28 Dose: 650 mg Documented by: Albuterol Sulfate (Albuterol Sulfate 90 Mcg 8 Gm Inhaler) 2 puff INHALE QID PRN PRN Reason: Wheezing Atorvastatin Calcium (Atorvastatin Calcium 80 Mg Tablet) 80 mg PO BEDTIME [facility] Baclofen (Baclofen 10 Mg Tablet) 10 mg PO TID PRN PRN Reason: Muscle Spasm Buspirone HCl (Buspirone Hcl 5 Mg Tablet) 5 mg PO BID [facility] Last Admin: 02/14/22 08:13 Dose: 5 mg Documented by: Clonidine HCl (Clonidine Hcl 0.1 Mg Tablet) 0.1 mg PO BID [facility]; Protocol Last Admin: 02/14/22 08:14 Dose: 0.1 mg Documented by: Heparin Sodium (Porcine) (Heparin Sodium,Porcine 5,000 Unit/Ml Vial) 5,000 unit SUBCUT Q8H [facility] Last Admin: 02/14/22 05:28 Dose: 5,000 unit Documented by: Sodium Chloride (Ns) 1,000 mls @ 100 mls/hr IVCONT .Q10H [facility] Last Admin: 02/14/22 06:39 Dose: 100 mls/hr Documented by: Lisinopril (Lisinopril 20 Mg Tablet) 20 mg PO DAILY [facility]; Protocol Last Admin: 02/14/22 08:13 Dose: 20 mg Documented by: Loratadine (Loratadine 10 Mg Tablet) 10 mg PO DAILY [facility] Last Admin: 02/14/22 08:13 Dose: 10 mg Documented by: Meclizine HCl (Meclizine Hcl 25 Mg Tablet) 25 mg PO Q8H PRN PRN Reason: dizziness Melatonin (Melatonin 3 Mg Tablet) 6 mg PO BEDTIME PRN PRN Reason: Insomnia Omeprazole (Omeprazole 20 Mg Capsule.Dr) 20 mg PO DAILY@0630 [facility] Quetiapine Fumarate (Quetiapine Fumarate 50 Mg Tablet) 50 mg PO BEDTIME [facility] Senna (Sennosides 8.6 Mg Tablet) 17.2 mg PO BEDTIME PRN PRN Reason: Constipation Sodium Chloride (0.9 % Sodium Chloride Flush 3 Ml Syringe) 3 ml IVFLUSH QSHIFT [facility] Last Admin: 02/14/22 08:02 Dose: Not Given Documented by: Sumatriptan Succinate (Sumatriptan Succinate 100 Mg Tablet) 100 mg PO DAILY MRX1 PRN PRN Reason: headaches Vitamin D (Cholecalciferol (Vitamin D3) 25 Mcg Tablet) 50 mcg PO DAILY [facility] Last Admin: 02/14/22 08:13 Dose: 50 mcg Documented by: Zolpidem Tartrate (Zolpidem Tartrate 5 Mg Tablet) 5 mg PO BEDTIME PRN PRN Reason: Sleep Home Medications Medication Instructions Recorded Confirmed Last Taken Type baclofen 10 mg tablet 10 mg PO TID PRN 09/05/20 02/13/22 02/13/22 History hydrochlorothiazide 25 mg tablet 25 mg PO DAILY 09/05/20 02/13/22 02/13/22 History loratadine 10 mg tablet 10 mg PO DAILY 09/05/20 02/13/22 02/13/22 History quetiapine 100 mg tablet (Seroquel) 100 mg PO BEDTIME 09/05/20 02/13/22 02/12/22 History zolpidem 10 mg tablet (Ambien) 5 mg PO BEDTIME PRN 09/05/20 02/13/22 Unknown History cholecalciferol (vitamin D3) 50 50 mcg PO DAILY 08/27/21 02/13/22 02/13/22 History mcg (2,000 unit) tablet lisinopril 20 mg tablet 20 mg PO DAILY 08/27/21 02/13/22 02/13/22 History albuterol sulfate 90 mcg/actuation 2 puff INHALATION QID PRN 02/13/22 02/13/22 Unknown History aerosol inhaler atorvastatin 80 mg tablet 80 mg PO BEDTIME 02/13/22 02/13/22 02/12/22 History clonidine HCl 0.2 mg tablet 1 tab PO BID 02/13/22 02/13/22 02/13/22 History fluticasone propionate 110 2 puff INHALATION BID 02/13/22 02/13/22 02/13/22 History mcg/actuation HFA aerosol inhaler (Flovent HFA) quetiapine 25 mg tablet (Seroquel) 1 tab PO BID 02/13/22 02/13/22 02/13/22 History sumatriptan succinate 100 mg tablet 100 mg PO DAILY MRX1 PRN 02/13/22 02/13/22 Unknown History Physical Exam Vital Signs: Vital Signs: Last Vital Signs Temp 98.3 F 02/14/22 03:41 Pulse 50 02/14/22 08:15 Resp 18 02/14/22 08:15 BP 128/70 02/14/22 08:15 Pulse Ox 98 02/14/22 08:15 BMI result Body Mass Index 31.4 GENERAL APPEARANCE: in no acute distress, pleasant. NECK: no carotid bruit, no jugular venous distention. SKIN: no suspicious lesions, warm and dry. HEART: no murmurs, regular rate and rhythm. Bradycardic. LUNGS: clear to auscultation bilaterally. ABDOMEN: soft, nontender. EXTREMITIES: no edema. PERIPHERAL PULSES: equal. NEUROLOGIC: No gross deficits, AAO X 3 Objective Labs and Meds Result diagrams: 02/14/22 06:46 02/14/22 06:46 Lab results: Laboratory Results - last 24 hr 02/13/22 02/13/22 02/13/22 17:27 17:27 17:27 WBC 7.2 RBC 4.05 L Hgb 11.1 L Hct 34.8 L MCV 85.9 MCH 27.4 MCHC 31.9 RDW 15.6 Plt Count 268 MPV 9.8 Immature Gran % (Auto) 0.1 Neut % (Auto) 55.4 Lymph % (Auto) 31.1 Whitfield % (Auto) 7.1 Eos % (Auto) 5.7 H Baso % (Auto) 0.6 Lymph # (Auto) 2.2 Whitfield # (Auto) 0.5 Eos # (Auto) 0.4 Baso # (Auto) 0.0 Abs Immat Gran (auto) 0.01 Absolute Neuts (auto) 4.0 Absolute Nucleated RBC 0.000 Nucleated RBC % (auto) 0.0 ESR Sodium 140 Potassium 3.9 Chloride 103 Carbon Dioxide 29 Anion Gap 12 BUN 6 L D Creatinine 0.84 Estim Creat Clear Calc 79.8 Estimated GFR > 60 Random Glucose 105 Calcium 10.9 H D Magnesium Total Bilirubin 0.3 AST 23 ALT 19 Alkaline Phosphatase 86 D Troponin I High Sens < 3.5 C-Reactive Protein 0.15 Total Protein 7.3 Albumin 4.0 Vitamin B12 25-OH Vitamin D Total Folate TSH CSF Tube Number CSF Volume CSF Appearance CSF Color CSF WBC CSF RBC CSF Neutrophils CSF Lymphocytes CSF Monocytes % CSF Other Cells % CSF Appearance (b) CSF Glucose CSF Total Protein COVID-19 ([facility]) COVID-19 Clin Com 02/13/22 02/13/22 02/13/22 17:27 22:36 22:36 WBC RBC Hgb Hct MCV MCH MCHC RDW Plt Count MPV Immature Gran % (Auto) Neut % (Auto) Lymph % (Auto) Whitfield % (Auto) Eos % (Auto) Baso % (Auto) Lymph # (Auto) Whitfield # (Auto) Eos # (Auto) Baso # (Auto) Abs Immat Gran (auto) Absolute Neuts (auto) Absolute Nucleated RBC Nucleated RBC % (auto) ESR 10 Sodium Potassium Chloride Carbon Dioxide Anion Gap BUN Creatinine Estim Creat Clear Calc Estimated GFR Random Glucose Calcium Magnesium Total Bilirubin AST ALT Alkaline Phosphatase Troponin I High Sens C-Reactive Protein Total Protein Albumin Vitamin B12 25-OH Vitamin D Total Folate TSH CSF Tube Number 1 4 CSF Volume 3.0 CSF Appearance CLEAR CSF Color COLORLESS CSF WBC 0 CSF RBC 2 CSF Neutrophils 0 CSF Lymphocytes 57 CSF Monocytes % 43 CSF Other Cells % 0 CSF Appearance (b) Clear, Colorless CSF Glucose 63 CSF Total Protein 47.1 H COVID-19 ([facility]) COVID-19 [employer] 02/13/22 02/13/22 02/14/22 23:10 23:10 00:48 WBC RBC Hgb Hct MCV MCH MCHC RDW Plt Count MPV Immature Gran % (Auto) Neut % (Auto) Lymph % (Auto) Whitfield % (Auto) Eos % (Auto) Baso % (Auto) Lymph # (Auto) Whitfield # (Auto) Eos # (Auto) Baso # (Auto) Abs Immat Gran (auto) Absolute Neuts (auto) Absolute Nucleated RBC Nucleated RBC % (auto) ESR Sodium Potassium Chloride Carbon Dioxide Anion Gap BUN Creatinine Estim Creat Clear Calc Estimated GFR Random Glucose Calcium Magnesium Total Bilirubin AST ALT Alkaline Phosphatase Troponin I High Sens C-Reactive Protein Total Protein Albumin Vitamin B12 518 25-OH Vitamin D Total 23.5 Folate 8.1 TSH 1.00 CSF Tube Number CSF Volume CSF Appearance CSF Color CSF WBC CSF RBC CSF Neutrophils CSF Lymphocytes CSF Monocytes % CSF Other Cells % CSF Appearance (b) CSF Glucose CSF Total Protein COVID-19 ([facility]) Negative COVID-19 [employer] See Note 02/14/22 02/14/22 06:46 06:46 WBC 6.6 RBC 3.62 L Hgb 9.9 L Hct 31.4 L MCV 86.7 MCH 27.3 MCHC 31.5 RDW 15.7 Plt Count 220 MPV 10.0 Immature Gran % (Auto) 0.2 Neut % (Auto) 33.6 L Lymph % (Auto) 50.8 H Whitfield % (Auto) 7.6 Eos % (Auto) 7.2 H Baso % (Auto) 0.6 Lymph # (Auto) 3.3 Whitfield # (Auto) 0.5 Eos # (Auto) 0.5 H Baso # (Auto) 0.0 Abs Immat Gran (auto) 0.01 Absolute Neuts (auto) 2.2 Absolute Nucleated RBC 0.000 Nucleated RBC % (auto) 0.0 ESR Sodium 141 Potassium 4.0 Chloride 108 Carbon Dioxide 27 Anion Gap 10 L BUN 7 L Creatinine 0.82 Estim Creat Clear Calc 81.8 Estimated GFR > 60 Random Glucose 103 Calcium 9.3 D Magnesium 1.6 Total Bilirubin AST ALT Alkaline Phosphatase Troponin I High Sens C-Reactive Protein Total Protein Albumin Vitamin B12 25-OH Vitamin D Total Folate TSH CSF Tube Number CSF Volume CSF Appearance CSF Color CSF WBC CSF RBC CSF Neutrophils CSF Lymphocytes CSF Monocytes % CSF Other Cells % CSF Appearance (b) CSF Glucose CSF Total Protein COVID-19 ([facility]) COVID-19 Clin Com Imaging Radiologist's impression: Impressions Head CT 02/13/22 16:46 IMPRESSION: No CT evidence of acute intracranial hemorrhage or edematous territorial infarction. Chest X-Ray 02/13/22 21:09 IMPRESSION: Unremarkable chest examination. Assessment and Plan (1) Dizziness: Status: Acute (2) Weakness: Status: Acute (3) Sinus bradycardia: Status: Acute Plan labs, EKG imaging reviewed. 56-year-old female presenting for dizziness, leg weakness and sinus bradycardia. She is complaining of chronic low back pain and that her legs are weak. By exam there is no obvious weakness right now. She is also noted to be bradycardic. I think this is mostly when she is sleeping and while awake her heart rates are 50-60 beats per minute. There is no heart block or any obvious indication for pacemaker placement. She is on clonidine which potentially can cause bradycardia. As clonidine has some potential for withdrawal, I am reluctant to stop it abruptly. I think bradycardia is just an incidental finding in this lady. She is on sumatriptan and has background of hypertension. I thing sumatriptan should not be used in her because it may affect her blood pressure and may lead to unnecessary titration of medications. Thank you for allowing me to participate in the care of your patient. Please feel free to contact me if you have any questions. Procedures Date of Service Date of Service: 02/14/22
[2022-02-14] MEDS: Omeprazole 20 MG CAPSULE.DR PO (09:30)
--- NOTE | 2022-02-14 10:06 | MHC.CM.PN ---
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 SHE USES NO DME OR VNA SERVICES PATIENT'S CAR IS IN THE LOT AND SHE IS HOPING TO BE ABLE TO DRIVE SELF HOME. SHE IS COVID VACCINATED X 2 WITH PFIZER SERIES BUT UNABLE TO RECALL THE DATES. SHE ASKS FOR A HCP (NAMING HER DAUGHTER KADEN SOLE AGENT) HCP TO BE COMPLETED AND PLACE IN CHART
--- NOTE | 2022-02-14 11:49 | P.CNNE_ITS ---
History of Present Illness Data of Consult Service Date: 02/14/22 Primary Care Provider: Kadi Tomlin MD [facility] Reason for consult: Dizziness 56 years old woman who came to hospital with few days to weeks history of dizziness headache and unsteadiness. There was no recent cold or flu-like illness or trauma or seizure-like episode. She was having a headache when I talked to her. There was no double vision loss of vision nausea or vomiting or any focal weakness. Review of Systems Review of Systems: As per HPI [facility] Past Medical History Medical History Anxiety Asthma Depression GERD (gastroesophageal reflux disease) Hx of hepatitis C Hypertension Hypothyroid Migraines Family History Family History Father No problems noted. Mother HTN (hypertension) Surgical History Surgical History History of colonoscopy History of esophagogastroduodenoscopy (EGD) History of nasal surgery History of tubal ligation Social History Social History Household Members: None Are you a primary health care assistant to a significant other at home: No Do you presently have visiting nurse or other home services: No Alcohol intake: current Alcohol intake frequency: holidays/special occasions only Patient Tobacco Use Status: Never used Tobacco Advance Directives: No Advance Directives Information Provided: Yes service: No Current occupational status: employed Meds Allergies Allergy/AdvReac Type Severity Reaction Status Date / Time No Known Allergies Allergy Verified 02/13/22 15:57 Active Medications: Current Medications Acetaminophen (Acetaminophen 325 Mg Tablet) 650 mg PO Q6H PRN PRN Reason: Pain, Mild (Pain Scale 1-3) Last Admin: 02/13/22 21:28 Dose: 650 mg Documented by: Albuterol Sulfate (Albuterol Sulfate 90 Mcg 8 Gm Inhaler) 2 puff INHALE QID PRN PRN Reason: Wheezing Atorvastatin Calcium (Atorvastatin Calcium 80 Mg Tablet) 80 mg PO BEDTIME [facility] Baclofen (Baclofen 10 Mg Tablet) 10 mg PO TID PRN PRN Reason: Muscle Spasm Buspirone HCl (Buspirone Hcl 5 Mg Tablet) 5 mg PO BID [facility] Last Admin: 02/14/22 08:13 Dose: 5 mg Documented by: Clonidine HCl (Clonidine Hcl 0.1 Mg Tablet) 0.1 mg PO BID [facility]; Protocol Last Admin: 02/14/22 08:14 Dose: 0.1 mg Documented by: Heparin Sodium (Porcine) (Heparin Sodium,Porcine 5,000 Unit/Ml Vial) 5,000 unit SUBCUT Q8H [facility] Last Admin: 02/14/22 05:28 Dose: 5,000 unit Documented by: Sodium Chloride (Ns) 1,000 mls @ 100 mls/hr IVCONT .Q10H [facility] Last Admin: 02/14/22 06:39 Dose: 100 mls/hr Documented by: Lisinopril (Lisinopril 20 Mg Tablet) 20 mg PO DAILY [facility]; Protocol Last Admin: 02/14/22 08:13 Dose: 20 mg Documented by: Loratadine (Loratadine 10 Mg Tablet) 10 mg PO DAILY [facility] Last Admin: 02/14/22 08:13 Dose: 10 mg Documented by: Meclizine HCl (Meclizine Hcl 25 Mg Tablet) 25 mg PO Q8H PRN PRN Reason: dizziness Melatonin (Melatonin 3 Mg Tablet) 6 mg PO BEDTIME PRN PRN Reason: Insomnia Omeprazole (Omeprazole 20 Mg Capsule.Dr) 20 mg PO DAILY@0630 [facility] Last Admin: 02/14/22 09:30 Dose: 20 mg Documented by: Quetiapine Fumarate (Quetiapine Fumarate 50 Mg Tablet) 50 mg PO BEDTIME [facility] Senna (Sennosides 8.6 Mg Tablet) 17.2 mg PO BEDTIME PRN PRN Reason: Constipation Sodium Chloride (0.9 % Sodium Chloride Flush 3 Ml Syringe) 3 ml IVFLUSH QSHIFT [facility] Last Admin: 02/14/22 08:02 Dose: Not Given Documented by: Vitamin D (Cholecalciferol (Vitamin D3) 25 Mcg Tablet) 50 mcg PO DAILY [facility] Last Admin: 02/14/22 08:13 Dose: 50 mcg Documented by: Zolpidem Tartrate (Zolpidem Tartrate 5 Mg Tablet) 5 mg PO BEDTIME PRN PRN Reason: Sleep Home Medications Medication Instructions Recorded Confirmed Last Taken Type baclofen 10 mg tablet 10 mg PO TID PRN 09/05/20 02/13/22 02/13/22 History hydrochlorothiazide 25 mg tablet 25 mg PO DAILY 09/05/20 02/13/22 02/13/22 History loratadine 10 mg tablet 10 mg PO DAILY 09/05/20 02/13/22 02/13/22 History quetiapine 100 mg tablet (Seroquel) 100 mg PO BEDTIME 09/05/20 02/13/22 02/12/22 History zolpidem 10 mg tablet (Ambien) 5 mg PO BEDTIME PRN 09/05/20 02/13/22 Unknown History cholecalciferol (vitamin D3) 50 50 mcg PO DAILY 08/27/21 02/13/22 02/13/22 History mcg (2,000 unit) tablet lisinopril 20 mg tablet 20 mg PO DAILY 08/27/21 02/13/22 02/13/22 History albuterol sulfate 90 mcg/actuation 2 puff INHALATION QID PRN 02/13/22 02/13/22 Unknown History aerosol inhaler atorvastatin 80 mg tablet 80 mg PO BEDTIME 02/13/22 02/13/22 02/12/22 History clonidine HCl 0.2 mg tablet 1 tab PO BID 02/13/22 02/13/22 02/13/22 History fluticasone propionate 110 2 puff INHALATION BID 02/13/22 02/13/22 02/13/22 History mcg/actuation HFA aerosol inhaler (Flovent HFA) quetiapine 25 mg tablet (Seroquel) 1 tab PO BID 02/13/22 02/13/22 02/13/22 History sumatriptan succinate 100 mg tablet 100 mg PO DAILY MRX1 PRN 02/13/22 02/13/22 Unknown History Physical Exam 2 Vital Signs: Vital Signs: Last Vital Signs Temp 98.3 F 02/14/22 03:41 Pulse 56 02/14/22 10:19 Resp 18 02/14/22 08:15 BP 128/50 L 02/14/22 10:19 Pulse Ox 98 02/14/22 09:01 BMI result Body Mass Index 31.4 Neuro: Other: Alert and awake with normal spontaneity of speech fluency comprehension and affect. Pupils were equal and reactive to light and extraocular muscles were intact. Visual jalloh are full to threat. Face was symmetrical. There was no pronator drift. Oytpib-bi-hizf testing revealed mild ataxia. Deep tendon reflexes were trace to absent with flexor plantars. She was able to get up and stood without difficulty. Speech was normal. Results Labs CBC & Chem 7: 02/14/22 06:46 02/14/22 06:46 Labs: Short CBC 02/13/22 02/14/22 Range/Units 17:27 06:46 WBC 7.2 6.6 (4.8-10.8) X10*3/uL Hgb 11.1 L 9.9 L (12.0-16.0) g/dl Hct 34.8 L 31.4 L (37.0-47.0) % Plt Count 268 220 (160-400) X10*3/uL BMP 02/13/22 02/14/22 17:27 06:46 Sodium 140 141 Potassium 3.9 4.0 Chloride 103 108 Carbon Dioxide 29 27 BUN 6 L D 7 L Creatinine 0.84 0.82 Calcium 10.9 H D 9.3 D Liver Function 02/13/22 Range/Units 17:27 Total Bilirubin 0.3 (0.0-1.0) mg/dL AST 23 (5-31) U/L ALT 19 (0-31) U/L Alkaline Phosphatase 86 D (39-117) U/L Albumin 4.0 (3.5-5.0) g/dL Noncontrast head CT did not reveal any significant abnormality. Spinal fluid results were noted with slightly elevated protein. Microbiology Microbiology Results: Microbiology 02/13/22 22:36 Cerebrospinal Fluid Gram Stain - Final 02/13/22 22:36 Cerebrospinal Fluid CSF Examination - Final 02/13/22 22:36 Cerebrospinal Fluid Fluid Description - Final 02/13/22 22:36 Cerebrospinal Fluid CSF Culture - Preliminary Culture in progress. Assessment and Plan (1) Frequent falls: Status: Acute 56 years old woman with complaints of headaches dizziness and unsteadiness. Examination was nonfocal. She was having a headache. Differential diagnosis would include status migrainosus, demyelinating disease, or an inflammatory co ndition. I recommend obtaining a noncontrast MRI of brain to rule out any possibility of demyelinating disease. Otherwise treatment is conservative and symptomatic. (2) Dizziness: Status: Acute Procedures Date of Service Date of Service: 02/14/22
--- NOTE | 2022-02-14 12:28 | P.PNIM_ITS ---
Subjective Subjective Date of Service: 02/14/22 Interval History: Follow up on weakness and difficulty walking interval history: no change, she's been like for 4 weeks Review of Systems weakness in legs no fever or chlls, no speech changes Physical Exam Vital Signs: Vital Signs: Last Vital Signs Temp 98.3 F 02/14/22 03:41 Pulse 56 02/14/22 10:19 Resp 18 02/14/22 08:15 BP 128/50 L 02/14/22 10:19 Pulse Ox 98 02/14/22 09:01 BMI result Body Mass Index 31.4 Const: Other: General: AO X 3, no acute distress Resp: CTA bilateral CVS: S1,S2,RRR GI: +BS, NT, no distention Skin: No rash Neuro: motor grossly intact, no focal weakness Psych: appropriate affect Objective Data Active Medications Acetaminophen (Acetaminophen 325 Mg Tablet) 650 mg PO Q6H PRN PRN Reason: Pain, Mild (Pain Scale 1-3) Last Admin: 02/13/22 21:28 Dose: 650 mg Documented by: THEODORE Albuterol Sulfate (Albuterol Sulfate 90 Mcg 8 Gm Inhaler) 2 puff INHALE QID PRN PRN Reason: Wheezing Atorvastatin Calcium (Atorvastatin Calcium 80 Mg Tablet) 80 mg PO BEDTIME LAILA Baclofen (Baclofen 10 Mg Tablet) 10 mg PO TID PRN PRN Reason: Muscle Spasm Buspirone HCl (Buspirone Hcl 5 Mg Tablet) 5 mg PO BID [facility] Last Admin: 02/14/22 08:13 Dose: 5 mg Documented by: DONNA Clonidine HCl (Clonidine Hcl 0.1 Mg Tablet) 0.1 mg PO BID [facility]; Protocol Last Admin: 02/14/22 08:14 Dose: 0.1 mg Documented by: DONNA Heparin Sodium (Porcine) (Heparin Sodium,Porcine 5,000 Unit/Ml Vial) 5,000 unit SUBCUT Q8H [facility] Last Admin: 02/14/22 05:28 Dose: 5,000 unit Documented by: THEODORE Sodium Chloride (Ns) 1,000 mls @ 100 mls/hr IVCONT .Q10H [facility] Last Admin: 02/14/22 06:39 Dose: 100 mls/hr Documented by: THEODORE Lisinopril (Lisinopril 20 Mg Tablet) 20 mg PO DAILY [facility]; Protocol Last Admin: 02/14/22 08:13 Dose: 20 mg Documented by: DONNA Loratadine (Loratadine 10 Mg Tablet) 10 mg PO DAILY [facility] Last Admin: 02/14/22 08:13 Dose: 10 mg Documented by: DONNA Meclizine HCl (Meclizine Hcl 25 Mg Tablet) 25 mg PO Q8H PRN PRN Reason: dizziness Melatonin (Melatonin 3 Mg Tablet) 6 mg PO BEDTIME PRN PRN Reason: Insomnia Omeprazole (Omeprazole 20 Mg Capsule.Dr) 20 mg PO DAILY@0630 [facility] Last Admin: 02/14/22 09:30 Dose: 20 mg Documented by: DONNA Quetiapine Fumarate (Quetiapine Fumarate 50 Mg Tablet) 50 mg PO BEDTIME [facility] Senna (Sennosides 8.6 Mg Tablet) 17.2 mg PO BEDTIME PRN PRN Reason: Constipation Sodium Chloride (0.9 % Sodium Chloride Flush 3 Ml Syringe) 3 ml IVFLUSH QSHIFT [facility] Last Admin: 02/14/22 08:02 Dose: Not Given Documented by: DONNA Non-Admin Reason: IV Running Vitamin D (Cholecalciferol (Vitamin D3) 25 Mcg Tablet) 50 mcg PO DAILY [facility] Last Admin: 02/14/22 08:13 Dose: 50 mcg Documented by: DONNA Zolpidem Tartrate (Zolpidem Tartrate 5 Mg Tablet) 5 mg PO BEDTIME PRN PRN Reason: Sleep Labs CBC & Chem 7: 02/14/22 06:46 02/14/22 06:46 Labs: Laboratory Results - last 24 hr 02/13/22 02/13/22 02/13/22 17:27 17:27 17:27 MCV 85.9 MCH 27.4 MCHC 31.9 RDW 15.6 Plt Count 268 MPV 9.8 Immature Gran % (Auto) 0.1 Neut % (Auto) 55.4 Lymph % (Auto) 31.1 [place] % (Auto) 7.1 Eos % (Auto) 5.7 H Baso % (Auto) 0.6 Lymph # (Auto) 2.2 [place] # (Auto) 0.5 Eos # (Auto) 0.4 Baso # (Auto) 0.0 Abs Immat Gran (auto) 0.01 Absolute Neuts (auto) 4.0 Absolute Nucleated RBC 0.000 Nucleated RBC % (auto) 0.0 ESR Anion Gap 12 Estim Creat Clear Calc 79.8 Estimated GFR > 60 Random Glucose 105 Calcium 10.9 H D Magnesium Total Bilirubin 0.3 AST 23 ALT 19 Alkaline Phosphatase 86 D Troponin I High Sens < 3.5 C-Reactive Protein 0.15 Total Protein 7.3 Albumin 4.0 Vitamin B12 25-OH Vitamin D Total Folate TSH CSF Tube Number CSF Volume CSF Appearance CSF Color CSF WBC CSF RBC CSF Neutrophils CSF Lymphocytes CSF Monocytes % CSF Other Cells % CSF Appearance (b) CSF Glucose CSF Total Protein CSF Lyme IgG (Immblot) CSF Lyme IgG Bands Det CSF Lyme IgM (Immblot) CSF Lyme IgM Bands Det COVID-19 ([facility]) [employer] 02/13/22 02/13/22 02/13/22 17:27 22:36 22:36 MCV MCH MCHC RDW Plt Count MPV Immature Gran % (Auto) Neut % (Auto) Lymph % (Auto) [place] % (Auto) Eos % (Auto) Baso % (Auto) Lymph # (Auto) [place] # (Auto) Eos # (Auto) Baso # (Auto) Abs Immat Gran (auto) Absolute Neuts (auto) Absolute Nucleated RBC Nucleated RBC % (auto) ESR 10 Anion Gap Estim Creat Clear Calc Estimated GFR Random Glucose Calcium Magnesium Total Bilirubin AST ALT Alkaline Phosphatase Troponin I High Sens C-Reactive Protein Total Protein Albumin Vitamin B12 25-OH Vitamin D Total Folate TSH CSF Tube Number 1 4 CSF Volume 3.0 CSF Appearance CLEAR CSF Color COLORLESS CSF WBC 0 CSF RBC 2 CSF Neutrophils 0 CSF Lymphocytes 57 CSF Monocytes % 43 CSF Other Cells % 0 CSF Appearance (b) Clear, Colorless CSF Glucose 63 CSF Total Protein 47.1 H CSF Lyme IgG (Immblot) CSF Lyme IgG Bands Det CSF Lyme IgM (Immblot) CSF Lyme IgM Bands Det COVID-19 ([facility]) COVID-19 [employer] 02/13/22 02/13/22 02/13/22 22:36 23:10 23:10 MCV MCH MCHC RDW Plt Count MPV Immature Gran % (Auto) Neut % (Auto) Lymph % (Auto) [place] % (Auto) Eos % (Auto) Baso % (Auto) Lymph # (Auto) [place] # (Auto) Eos # (Auto) Baso # (Auto) Abs Immat Gran (auto) Absolute Neuts (auto) Absolute Nucleated RBC Nucleated RBC % (auto) ESR Anion Gap Estim Creat Clear Calc Estimated GFR Random Glucose Calcium Magnesium Total Bilirubin AST ALT Alkaline Phosphatase Troponin I High Sens C-Reactive Protein Total Protein Albumin Vitamin B12 518 25-OH Vitamin D Total 23.5 Folate 8.1 TSH 1.00 CSF Tube Number CSF Volume CSF Appearance CSF Color CSF WBC CSF RBC CSF Neutrophils CSF Lymphocytes CSF Monocytes % CSF Other Cells % CSF Appearance (b) CSF Glucose CSF Total Protein CSF Lyme IgG (Immblot) TNP CSF Lyme IgG Bands Det TNP CSF Lyme IgM (Immblot) TNP CSF Lyme IgM Bands Det TNP COVID-19 ([facility]) [facility] 02/14/22 02/14/22 02/14/22 00:48 06:46 06:46 MCV 86.7 MCH 27.3 MCHC 31.5 RDW 15.7 Plt Count 220 MPV 10.0 Immature Gran % (Auto) 0.2 Neut % (Auto) 33.6 L Lymph % (Auto) 50.8 H [place] % (Auto) 7.6 Eos % (Auto) 7.2 H Baso % (Auto) 0.6 Lymph # (Auto) 3.3 [place] # (Auto) 0.5 Eos # (Auto) 0.5 H Baso # (Auto) 0.0 Abs Immat Gran (auto) 0.01 Absolute Neuts (auto) 2.2 Absolute Nucleated RBC 0.000 Nucleated RBC % (auto) 0.0 ESR Anion Gap 10 L Estim Creat Clear Calc 81.8 Estimated GFR > 60 Random Glucose 103 Calcium 9.3 D Magnesium 1.6 Total Bilirubin AST ALT Alkaline Phosphatase Troponin I High Sens C-Reactive Protein Total Protein Albumin Vitamin B12 25-OH Vitamin D Total Folate TSH CSF Tube Number CSF Volume CSF Appearance CSF Color CSF WBC CSF RBC CSF Neutrophils CSF Lymphocytes CSF Monocytes % CSF Other Cells % CSF Appearance (b) CSF Glucose CSF Total Protein CSF Lyme IgG (Immblot) CSF Lyme IgG Bands Det CSF Lyme IgM (Immblot) CSF Lyme IgM Bands Det COVID-19 ([facility]) Negative [facility] See Note Microbiology Microbiology Results: Microbiology 02/13/22 22:36 Gram Stain - Final Cerebrospinal Fluid CSF Examination - Final Fluid Description - Final CSF Culture - Preliminary Culture in progress. Assessment and Plan (1) Sinus bradycardia: Status: Acute (2) Weakness: Status: Acute (3) Frequent falls: Status: Acute Plan 56-year-old female with a past medical history of hypertension, anxiety, depression, hep C, gastroparesis, migraine headaches, hypothyroidism, GERD presented to the hospital today with a chief complaint of generalized weakness and falls.? Noted to have following conditions Generalized weakness with some gait issues, CT head ok, neuro recommending MRI of head, PT recommends STR, she doesn't want to go--will propose outpatient rehab instead Dizziness:?no dizziness at this time, and i don't think it is related to her meds, no of them is known to cause vertigo Syncope, vague circumstance, positive orthostatic hydrated for this, bradycardia into 50s, probably related to clonidine but don't believe that is or contributed to this, will cut down clonidine at discharge Recurrent falls: Unclear etiology.? Exam grossly nonfocal.? Cerebellar signs negative. CT head showed no acute findings.? LP is negative. MRI as above as suggested by Neurology History of anxiety/depression:? Continue home medications including buspirone, clonidine (dose?reduced to 0.1mg BID?from 0.2mg BID), Seroquel (dose?reduced to 50mg qhs?only from 100mg qhs and 25mg BID ) History of hypertension:?Hold home hydrochlorothiazide, lisinopril?for now. DVT prophylaxis:? Subcu heparin Code status:? Full code Need for inaptient: work up for weakness, bradycardia if work up completed today, will discharge Quality Stroke Does the patient have a stroke diagnosis?: No VTE Prior VTE?: No VTE Risk Level:: Medical - moderate - high VTE Device Contraindication: Treatment Not Indicated VTE Drug Contraindication: N/A - Med Ordered
[2022-02-14] MEDS: Acetaminophen 325 MG TABLET 650 MG PO (17:15)
--- NOTE | 2022-02-14 20:03 | PC.NURSE ---
attempted to call in report to ED overflow
[2022-02-14] MEDS: QUEtiapine Fumarate 50 MG TABLET PO (20:37)
[2022-02-14] MEDS: Atorvastatin Calcium 80 MG TABLET PO (20:37)
[2022-02-14] MEDS: oxyCODONE HCl Immed Release 5 MG TABLET PO (20:38)
--- NOTE | 2022-02-14 20:38 | PC.NURSE ---
pt a&ox3, vss, c/o 04/30 headache and knee pain, medicated per provider order, prn oxycodone given. no new orders at this time.
[2022-02-15] MEDS: 0.9 % Sodium Chloride 1,000 ML 100 ML IVCONT (01:23)
[2022-02-15 03:32] VITALS: BP 97/51; PULSE 61; RESP 21; TEMP 36.4; O2SAT 100
[2022-02-15] MEDS: Omeprazole 20 MG CAPSULE.DR PO (06:26)
[2022-02-15] MEDS: Heparin Sodium,Porcine 5,000 UNIT/ML VIAL 5000 UNIT SUBCUT (08:35)
[2022-02-15] MEDS: Cholecalciferol (Vitamin D3) 25 MCG TABLET 50 MCG PO (08:36)
[2022-02-15] MEDS: Loratadine 10 MG TABLET PO (08:39)
[2022-02-15] MEDS: oxyCODONE HCl Immed Release 5 MG TABLET PO (08:39)
[2022-02-15] MEDS: cloNIDine HCL 0.1 MG TABLET PO (10:53)
[2022-02-15] MEDS: busPIRone HCl 5 MG TABLET PO (10:53)
[2022-02-15 12:00] VITALS: BP 119/70; PULSE 50; RESP 16; TEMP 36.6; O2SAT 99
--- NOTE | 2022-02-15 14:54 | P.DS_ITS ---
DS: Providers Provider Date of Service: 02/15/22 Date of admission: 02/13/22 20:56 Primary care physician: Kadi Tomlin MD Consults: 02/13/22 22:55 Consult to Neurology Routine Consulting Provider: [facility] Reason for consultation: rec falls 02/14/22 05:25 Consult to Cardiology Routine Consulting Provider: Richy Juarez Reason for consultation: Dizziness/syncope/bradycardia/recurrent falls DS: Diagnosis Discharge Diagnosis (1) Sinus bradycardia: Status: Resolved (2) Weakness: Status: Resolved (3) Frequent falls: Status: Acute DS: Summary Hospital Course Hospital Course: Chief Complaint: falls 56-year-old female with a past medical history of hypertension, anxiety, depression, hep C, gastroparesis, migraine headaches, hypothyroidism, GERD presented to the hospital today with a chief complaint of generalized weakness and falls.? Patient reports that over the past 4 weeks she has been not feeling well; over the past 3 weeks she has not been not eating well; reports he has decreased appetite; mentions that she feels generally weak and had at least 7-8 times, she had a fall; mentions that she felt lightheaded; followed by legs give away and then fell on the ground; dip is any head strike or loss of consciousness.? Denies any fever chills cough or urinary symptoms.? Denies any recent travel or sick contacts.? Denies any numbness tingling or focal weakness.? Denies any back pain. Review of all other systems is negative except mentioned above ER course: Per ER team patient noted to have decreased patellar reflexes but otherwise nonfocal examination; CT head showed no acute findings; Patient had a LP done-results pending; admitted to the hospital for further m anagement: Hospital course: Generalized weakness: Likely in setting of dehydration as patient reported poor oral intake for the past few weeks. Improved with hydration Dizziness:? Initial reported spining of the room and given melcizine and this has resolve Syncope:? EKG nonischemic.? Troponin negative.? Orthostatic vitals were positive.? Gentle IV fluids.? Patient noted to be bradycardic on telemetry.? Cardiology consult Recurrent falls: Unclear etiology.? Exam grossly nonfocal.? Cerebellar signs negative. CT head showed no acute findings.? LP done unremarkable. Dr. Alcala neurogist recommended MRI which was unremarkable. PT recommended rehab but patient says she is feeling better and would rather go home with home PT History of anxiety/depression:? Continue home medications including buspirone, clonidine (dose?reduced to 0.1mg BID?from 0.2mg BID), Seroquel (dose?reduced to 50mg qhs?only from 100mg qhs and 25mg BID ) History of hypertension:?Hold home hydrochlorothiazide, lisinopril?for now. Time Spent with Patient Time attestation: Total time spent providing and/or coordinating discharge services: Discharge coordination time: Greater than 30 minutes Quality: Safe Use of Opioids Does Pt have an Active Cancer Diagnosis on the Problem List?: No Quality: Stroke Does the patient have a stroke diagnosis?: No Physical Exam Vital Signs: Vital Signs: Last Vital Signs Temp 97.9 F 02/15/22 12:00 Pulse 50 02/15/22 12:00 Resp 16 02/15/22 12:00 BP 119/70 02/15/22 12:00 Pulse Ox 99 02/15/22 12:00 BMI result Body Mass Index 31.4 DS: Data Data Completed and Pending Labs on day of discharge: Preliminary micro results at discharge 02/13/22 22:36 CSF Culture - Preliminary Cerebrospinal Fluid No growth after 1 day Discharge Plan Discharge Anticipated Discharge Date/Time: 02/15/22 14:49 Patient Disposition: Home Health Service Discharge Diagnosis: Fall, dizziness and unsteady gait Referrals: Kadi Tomlin MD [Primary Care Provider] - 1 Week Discharge Medications: New clonidine HCl 0.1 mg Tablet 0.1 mg PO BID Qty: 60 0RF Protocol: Hold for SBP< HOLD for SBP < : 90 Continued Linzess 290 mcg capsule 290 mcg PO DAILY Qty: 60 1RF buspirone 5 mg tablet 5 mg PO BID Qty: 60 1RF quetiapine [Seroquel] 100 mg Tablet 100 mg PO BEDTIME baclofen 10 mg Tablet 10 mg PO TID PRN (Reason: Muscle Spasm) hydrochlorothiazide 25 mg Tablet 25 mg PO DAILY zolpidem [Ambien] 10 mg Tablet 5 mg PO BEDTIME PRN (Reason: Sleep) loratadine 10 mg Tablet 10 mg PO DAILY quetiapine [Seroquel] 25 mg tablet 1 tab PO BID sumatriptan succinate 100 mg tablet 100 mg PO DAILY MRX1 PRN (Reason: headaches) atorvastatin 80 mg Tablet 80 mg PO BEDTIME albuterol sulfate 90 mcg/actuation Hfa Aerosol Inhaler 2 puff INHALATION QID PRN (Reason: Wheezing) Flovent HFA 110 mcg/actuation Hfa Aerosol Inhaler 2 puff INHALATION BID cholecalciferol (vitamin D3) 50 mcg (2,000 unit) tablet 50 mcg PO DAILY Changed lisinopril 20 mg tablet 10 mg PO DAILY Qty: 0 0RF Discontinued clonidine HCl 0.2 mg tablet 1 tab PO BID Discharge Orders: Discharge Order (Routine); Ordered 02/15/22 Ordered By: Rob Wang Activity on Discharge: As tolerated Stand Alone Forms: Patient Portal Discharge page Care Plan Goals: fall prevention, Health Concerns: weakness and fall Plan of Treatment: Decline rehab so will have home PT Please note that Clonidine has been reduced to 0.1 bid, Lisinopril reduced to 10 mg daily Assessment: As above Discharge Date/Time: 02/15/22 20:16
[2022-02-15 21:06] LABS: Lyme Abs Screen <0.90 index
[2022-02-17 17:56] LABS: Lyme (B. burgdorferi) PCR NOT DETECTED (NOT DETECTED)
[2022-02-19 16:00] LABS: Vitamin B1 <6 nmol/L (8-30)
== END 2022-02-15 20:16 | disposition home health service (06) | DRG 422 ==
LOC: HO.ED 21:08 → HO.EDOVER 23:43
PROVIDERS: Physician Assistant; Admitting Provider Hospitalist; Emergency Provider Emergency Medicine; PCP General Practice; Visit Provider Internal Medicine
DX: E86.0 Dehydration (principal); E03.9 Hypothyroidism, unspecified; F41.9 Anxiety disorder, unspecified; J45.909 Unspecified asthma, uncomplicated; R00.1 Bradycardia, unspecified; G43.909 Migraine, unspecified, not intractable, without status migrainosus; K21.9 Gastro-esophageal reflux disease without esophagitis; Z20.822 Contact with and (suspected) exposure to COVID-19; R29.6 Repeated falls; I10 Essential (primary) hypertension; Z91.81 History of falling; Z98.51 Tubal ligation status; Z86.19 Personal history of other infectious and parasitic diseases; Z79.899 Other long term (current) drug therapy
CPT/HCPCS: 36415; 70450; 70551; 71045; 80048; 80053; 82306; 82607; 82746; 82945; 83735; 84157; 84425; 84443; 84484; 85025; 85652; 86140; 86617; 86618; 87015; 87070; 87205; 87476; 87635; 89051; 93005; 96360; 97162; 97166; 99285; 99291; 99292

== ENCOUNTER 2022-04-01 16:06 | Emergency (ER) | payer MEDICAID, SELFPAY ==
--- NOTE | ~2022-04-01 | CT_ITS ---
EXAMINATION: CT ANGIOGRAM OF THE CHEST WITH AND WITHOUT CONTRAST (CT PULMONARY ANGIOGRAM FOR PE) CLINICAL INFORMATION: Reason for Exam Pluerisy chest pain. PE? COMPARISON: None TECHNIQUE: Prior to contrast administration, noncontrast localization images were obtained. Subsequently, multidetector volumetric imaging was performed from the thoracic inlet to below the diaphragms following the administration of 65 mL Omnipaque 350 intravenous contrast. No contrast reaction reported Sagittal, coronal, and MIP oblique sagittal reformatted images were obtained on the CT workstation, uploaded to PACS, and reviewed. This CT examination was performed using dose optimization techniques as appropriate, variously including the following: *Automated exposure control *Adjustment of mA and/or kV according to patient size (this includes techniques or standardized protocols for targeted exams where dose is matched to indication/reason for exam; i.e. extremities or head) *Use of iterative reconstruction technique Total exam dose-length product 293 mGy-cm FINDINGS: QUALITY OF STUDY/CONTRAST BOLUS: Satisfactory. PULMONARY ARTERIES: No central or segmental pulmonary emboli. THORACIC AORTA: No aneurysm or dissection. 4 vessel branching pattern is noted with a separate origin to the left vertebral artery. LUNG: No focal consolidation, nodules or masses. PLEURA: No pleural effusion or pneumothorax. MEDIASTINUM: Normal heart size. No pericardial effusion. No hilar or mediastinal lymphadenopathy. No evidence of septal bowing or right heart strain. CHEST WALL/AXILLA: No axillary or internal mammary lymphadenopathy. OSSEOUS STRUCTURES: No acute or suspicious osseous abnormality. UPPER ABDOMEN: A hiatal hernia is present. No reflux of contrast into the hepatic veins to suggest elevated right heart pressures. CT/CT angio chest PE protocol IMPRESSION: No evidence of pulmonary VTE: negative
--- NOTE | ~2022-04-01 | XR_ITS ---
EXAMINATION: XR CHEST CLINICAL INFORMATION: Chest pain and shortness of breath COMPARISON: 02/13/2022 TECHNIQUE: 2 views of the chest were obtained. FINDINGS: No significant abnormality is noted involving the heart, lungs, mediastinum, bony thorax or soft tissues. XR/XR chest 2V IMPRESSION: Unremarkable examination.
--- NOTE | 2022-04-01 16:11 | ECG_ITS ---
Test Reason : chest pain Blood Pressure : / mmHG Vent. Rate : 062 BPM Atrial Rate : 062 BPM P-R Int : 160 ms QRS Dur : 084 ms QT Int : 446 ms P-R-T Axes : 051 026 048 degrees QTc Int : 452 ms Normal sinus rhythm Nonspecific ST and T wave abnormality Abnormal ECG When compared with ECG of 13-FEB-2022 17:42, Vent. rate has increased BY 20 BPM Nonspecific T wave abnormality now evident in Lateral leads QT has lengthened Referred By: Generic ED Physician Electronically Signed By:LIAN LOPEZ MD
[2022-04-01 18:24] VITALS: BP 118/57; PULSE 59; RESP 18; TEMP 36.9; O2SAT 99; BMI 32.5
--- NOTE | 2022-04-01 20:24 | ED.CHESTPAIN ---
HPI - Chest Pain General Chief Complaint: Chest Pain Stated Complaint: cHESTY pAIN Time Seen by Provider: 04/01/22 20:00 Source: patient Mode of arrival: ambulatory Limitations: no limitations History of Present Illness HPI narrative: 56-year-old female presents to the ED presents to ED for left-sided chest pain for 2 weeks since falling onto left chest. Patient states she was going down the stairs and she tripped and fell onto her left chest. States her chest directly hit the stairs and since then has had chest pain on movement chest pains on sneezing chest pain and movement left upper extremity and pleurisy. Patient denies any leg swelling, calf pain, coughing up blood, recent long travel, recent surgery. Patient denies hitting head or loss of consciousness MD complaint: chest pain Related Data Home Medications Medication Instructions Recorded Confirmed baclofen 10 mg tablet 10 mg PO TID PRN Muscle Spasm 09/05/20 02/13/22 hydrochlorothiazide 25 mg tablet 25 mg PO DAILY 09/05/20 02/13/22 loratadine 10 mg tablet 10 mg PO DAILY 09/05/20 02/13/22 quetiapine 100 mg tablet (Seroquel) 100 mg PO BEDTIME 09/05/20 02/13/22 zolpidem 10 mg tablet (Ambien) 5 mg PO BEDTIME PRN Sleep 09/05/20 02/13/22 cholecalciferol (vitamin D3) 50 50 mcg PO DAILY 08/27/21 02/13/22 mcg (2,000 unit) tablet albuterol sulfate 90 mcg/actuation 2 puff inhalation QID PRN Wheezing 02/13/22 02/13/22 aerosol inhaler atorvastatin 80 mg tablet 80 mg PO BEDTIME 02/13/22 02/13/22 fluticasone propionate 110 2 puff inhalation BID 02/13/22 02/13/22 mcg/actuation HFA aerosol inhaler (Flovent HFA) quetiapine 25 mg tablet (Seroquel) 1 tab PO BID 02/13/22 02/13/22 sumatriptan succinate 100 mg tablet 100 mg PO DAILY MRX1 PRN headaches 02/13/22 02/13/22 Previous Rx's Medication Instructions Recorded linaclotide 290 mcg capsule 290 mcg PO DAILY #60 caps 12/09/21 (Linzess) buspirone 5 mg tablet 5 mg PO BID #60 tabs 12/30/21 clonidine HCl 0.1 mg tablet 0.1 mg PO BID #60 tabs 02/15/22 lisinopril 20 mg tablet 10 mg PO DAILY #0 tabs 02/15/22 naproxen 500 mg tablet 500 mg PO BID PRN pain 10 days #20 04/02/22 tabs prednisone 20 mg tablet 40 mg PO DAILY 5 days #10 tabs 04/02/22 Allergies Allergy/AdvReac Type Severity Reaction Status Date / Time No Known Allergies Allergy Verified 04/01/22 18:24 Review of Systems Review of Systems: left sided chest pain after falling and hit chest on stair. Yes all other systems are reviewed and are negative [facility] Past Medical History Medical History Anxiety Asthma Depression GERD (gastroesophageal reflux disease) Hx of hepatitis C Hypertension Hypothyroid Migraines Surgical History History of colonoscopy History of esophagogastroduodenoscopy (EGD) History of nasal surgery History of tubal ligation Family History Family History Father No problems noted. Mother HTN (hypertension) Social History Social History Household Members: None Are you a primary critical care physician assistant to a significant other at home: No Do you presently have visiting nurse or other home services: No Alcohol intake: current Alcohol intake frequency: holidays/special occasions only Patient Tobacco Use Status: Never used Tobacco Advance Directives: Yes Advance Directives on File: Yes Advance Directives Date on File: 02/19/22 service: No Current occupational status: employed Physical Exam Vital Signs: Vital Signs: Last Vital Signs Temp 98.1 F 04/01/22 23:38 Pulse 59 04/01/22 23:38 Resp 16 04/01/22 23:38 BP 126/74 04/01/22 23:38 Pulse Ox 98 04/01/22 23:38 O2 Del Method 04/01/22 23:38 BMI result Body Mass Index 32.5 Const: General: cooperative, healthy appearing, comfortable, no acute distress, well developed, alert, awake and Physically active Orientation/consciousness: oriented to time and patient oriented x3 HEENT: Head: Yes normal to inspection, Yes No palpable skull fracture present, Yes normocephalic, Yes atraumatic and No abrasion Eyes: General: appearance normal, both eyes and all related structures Neck: Neck: Yes normal visual inspection, Yes full ROM, Yes no lymphadenopathy, Yes no meningeal signs, Yes trachea midline, Yes supple, No anterior neck swelling and No tender Chest: Chest palpation & inspection: normal inspection of the chest Chest/axillae images: 1. tenderness on palpation and pain on range of motion of left upper extremity and movement of upper torso. Negative for erythema, crepitus, or ecchymosis. Resp: Effort & Inspection: normal respiratory effort and able to speak in complete sentences Auscultation: clear to auscultation bilaterally Cardio: Jugular venous distension: no JVD Heart sounds: S1 normal heart sound present and S2 normal heart sound present GI: Inspection: Yes normal to inspection and No abdominal wall ecchymosis Palpation (GI): Soft to palpation, not firm, nontender, no guarding and not rigid : General: No CVA tenderness and Yes no CVA tenderness Back/Spine/Pelvis: Back: no CVA tenderness, No CVA tenderness and No back tenderness Skin: General skin exam: no rashes or lesions noted and elasticity normal Neuro: General: oriented to time, patient oriented x3, gait normal, no meningeal signs and CN's II-XI intact bilaterally Cranial nerves: Yes CN's II-XII intact bilaterally Extrem: Other: Lower extremities negative for swelling, pitting edema, calf tenderness General: Yes normal to inspection and Yes full ROM Psych: Appearance: grossly normal, well kempt and not disheveled Course Course Course Narrative: chest x-ray ordered. Due to age with cardiac evaluation. history physical exam indicate chest pain due to trauma will give Toradol and prednisone. Reevaluation(s) Reevaluation #1: EKG negative STEMI. D-dimer positive. troponin negative. BNP negative. Chest CTA negative for PE. Chest x-ray normal. Symptoms due to trauma. Patient is safe for discharge. Time: 00:22 MDM - Chest Pain MDM Narrative Medical decision making narrative: Chest contusion Lab Data Result diagrams: 04/01/22 20:23 04/01/22 21:00 Labs: Lab Results 04/01/22 04/01/22 04/01/22 Range/Units 20:23 20:23 20:23 WBC 5.5 (4.8-10.8) X10*3/uL RBC 4.07 L (4.20-5.50) X10*6/uL Hgb 10.9 L (12.0-16.0) g/dl Hct 34.4 L (37.0-47.0) % MCV 84.5 (80.0-98.0) fL MCH 26.8 L (27.0-33.0) pg MCHC 31.7 (31.0-35.0) g/dl RDW 15.4 (11.0-16.0) % Plt Count 289 D (160-400) X10*3/uL MPV 10.5 (9.4-12.3) fL Immature Gran % (Auto) 0.2 (0.0-0.4) % Neut % (Auto) 36.1 L (45-73) % Lymph % (Auto) 47.9 H (20-40) % Ross % (Auto) 10.3 (2-11) % Eos % (Auto) 5.1 H (0-4) % Baso % (Auto) 0.4 (0-2) % Lymph # (Auto) 2.6 (1.2-4.9) X10*3/uL Ross # (Auto) 0.6 (0.1-1.2) X10*3/uL Eos # (Auto) 0.3 (0.0-0.4) X10*3/uL Baso # (Auto) 0.0 (0.0-0.2) X10*3/uL Abs Immat Gran (auto) 0.01 (0.00-0.03) X10*3/uL Absolute Neuts (auto) 2.0 (2.0-8.3) x10*3/uL Absolute Nucleated RBC 0.000 (0.0-0.012) X10*3/uL Nucleated RBC % (auto) 0.0 (0.0-0.2) /100WBC PT (10.0-13.1) SEC INR (0.9-1.1) APTT (24.1-38.0) SEC D-Dimer High Sensitivty NG/ML Sodium (135-145) mmol/L Potassium (3.3-5.1) mmol/L Chloride (96-108) mmol/L Carbon Dioxide (22-29) mmol/L Anion Gap (12-20) BUN (9-16) mg/dL Creatinine (0.5-1.4) mg/dL Estim Creat Clear Calc Estimated GFR Random Glucose (60-115) mg/dL Calcium (8.4-10.2) mg/dL Total Bilirubin (0.0-1.0) mg/dL AST (5-31) U/L ALT (0-31) U/L Alkaline Phosphatase (39-117) U/L Troponin I High Sens < 3.5 (<3.5-17.0) ng/L B-Natriuretic Peptide 50 (<100) pg/mL Total Protein (6.5-8.0) g/dL Albumin (3.5-5.0) g/dL COVID-19 ([facility]) Negative (Negative) COVID-19 Clin Com See Note 04/01/22 04/01/22 Range/Units 20:23 21:00 WBC (4.8-10.8) X10*3/uL RBC (4.20-5.50) X10*6/uL Hgb (12.0-16.0) g/dl Hct (37.0-47.0) % MCV (80.0-98.0) fL MCH (27.0-33.0) pg MCHC (31.0-35.0) g/dl RDW (11.0-16.0) % Plt Count (160-400) X10*3/uL MPV (9.4-12.3) fL Immature Gran % (Auto) (0.0-0.4) % Neut % (Auto) (45-73) % Lymph % (Auto) (20-40) % Ross % (Auto) (2-11) % Eos % (Auto) (0-4) % Baso % (Auto) (0-2) % Lymph # (Auto) (1.2-4.9) X10*3/uL Ross # (Auto) (0.1-1.2) X10*3/uL Eos # (Auto) (0.0-0.4) X10*3/uL Baso # (Auto) (0.0-0.2) X10*3/uL Abs Immat Gran (auto) (0.00-0.03) X10*3/uL Absolute Neuts (auto) (2.0-8.3) x10*3/uL Absolute Nucleated RBC (0.0-0.012) X10*3/uL Nucleated RBC % (auto) (0.0-0.2) /100WBC PT 11.4 (10.0-13.1) SEC INR 1.0 (0.9-1.1) APTT 31.6 (24.1-38.0) SEC D-Dimer High Sensitivty 292 NG/ML Sodium 138 (135-145) mmol/L Potassium 4.1 (3.3-5.1) mmol/L Chloride 106 (96-108) mmol/L Carbon Dioxide 25 (22-29) mmol/L Anion Gap 11 L (12-20) BUN 9 (9-16) mg/dL Creatinine 0.81 (0.5-1.4) mg/dL Estim Creat Clear Calc 84.3 Estimated GFR > 60 Random Glucose 95 (60-115) mg/dL Calcium 9.5 (8.4-10.2) mg/dL Total Bilirubin 0.2 (0.0-1.0) mg/dL AST 18 (5-31) U/L ALT 9 (0-31) U/L Alkaline Phosphatase 122 H D (39-117) U/L Troponin I High Sens (<3.5-17.0) ng/L B-Natriuretic Peptide (<100) pg/mL Total Protein 7.1 (6.5-8.0) g/dL Albumin 4.1 (3.5-5.0) g/dL COVID-19 ([facility]) (Negative) COVID-19 Clin Com ECG Data ECG #1: Interpretation: Normal SInus rythm. Vent rate 62, NV interval 160, and qRS dyration 85 and QTC 422 Discharge Plan Discharge Clinical Impression: Chest wall contusion, Chest pain Patient Disposition: Home, Self-Care Instructions: Chest Pain (ED), Contusion in Adults (ED), Chest Wall Pain (ED) Additional Instructions: edwards an?lisis de cara, electrocardiograma y tomograf?a computarizada del t?rax resultaron negativos para co?gulo de cara, ataque card?aco, fractura de joseph, CHF o COVID despu?s de bossman tenido s?ntomas keon las ?ltimas 2 semanas. Lo m?s probable es que el abdomen se deba a un traumatismo. Por favor, lizz un seguimiento con el proveedor de atenci?n primaria. Regrese al servicio de urgencias de inmediato si tose con cara, hinchaz?n de las piernas, dolor en la pantorrilla, dolor de pecho que empeora, debilidad, mareos, dolor abdominal, tos con cara, cara en las heces, dolor de ginny, mareos o cualquier otro s?ntoma preocupante. Prescriptions: New naproxen 500 mg tablet 500 mg PO BID PRN (Reason: pain) 10 Days Qty: 20 0RF prednisone 20 mg tablet 40 mg PO DAILY 5 Days Qty: 10 0RF No Action Linzess 290 mcg capsule 290 mcg PO DAILY Qty: 60 1RF buspirone 5 mg tablet 5 mg PO BID Qty: 60 1RF quetiapine [Seroquel] 100 mg Tablet 100 mg PO BEDTIME baclofen 10 mg Tablet 10 mg PO TID PRN (Reason: Muscle Spasm) hydrochlorothiazide 25 mg Tablet 25 mg PO DAILY zolpidem [Ambien] 10 mg Tablet 5 mg PO BEDTIME PRN (Reason: Sleep) loratadine 10 mg Tablet 10 mg PO DAILY quetiapine [Seroquel] 25 mg tablet 1 tab PO BID sumatriptan succinate 100 mg tablet 100 mg PO DAILY MRX1 PRN (Reason: headaches) atorvastatin 80 mg Tablet 80 mg PO BEDTIME albuterol sulfate 90 mcg/actuation Hfa Aerosol Inhaler 2 puff INHALATION QID PRN (Reason: Wheezing) Flovent HFA 110 mcg/actuation Hfa Aerosol Inhaler 2 puff INHALATION BID clonidine HCl 0.1 mg Tablet 0.1 mg PO BID Qty: 60 0RF Protocol: Hold for SBP< HOLD for SBP < : 90 lisinopril 20 mg tablet 10 mg PO DAILY Qty: 0 0RF cholecalciferol (vitamin D3) 50 mcg (2,000 unit) tablet 50 mcg PO DAILY Referrals: Kadi Tomlin MD [Primary Care Provider] - ( Chest wall contusion. EKG, troponin, chest CTA, COVID, negative) Stand Alone Forms: Work/School Release Interventions: ED Discharge Assessment Last Done: 04/02/22 00:53 Discharge Date/Time: 04/02/22 00:53 Print Language: Citizen Of [place]
[2022-04-01 20:31] LABS: MANUAL DIFF FLAG NO
[2022-04-01 20:34] LABS: Basophils Percent Auto 0.4 % (0-2); Eosinophils Absolute Auto 0.3 X10*3/uL (0.0-0.4); Eosinophils Percent Auto 5.1 % (0-4); Hematocrit 34.4 % (37.0-47.0); Hemoglobin 10.9 g/dl (12.0-16.0); Imm Gran Abs Auto 0.01 X10*3/uL (0.00-0.03); Imm Gran Pct Auto 0.2 % (0.0-0.4); Lymphocytes Absolute Auto 2.6 X10*3/uL (1.2-4.9); Lymphocytes Percent Auto 47.9 % (20-40); Mean Corpuscular HGB Conc 31.7 g/dl (31.0-35.0); Mean Corpuscular Hemoglobin 26.8 pg (27.0-33.0); Mean Corpuscular Volume 84.5 fL (80.0-98.0); Mean Platelet Volume 10.5 fL (9.4-12.3); Monocytes Absolute Auto 0.6 X10*3/uL (0.1-1.2); Monocytes Percent Auto 10.3 % (2-11); Neutrophils Percent Auto 36.1 % (45-73); Platelet Count 289 X10*3/uL (160-400); Red Blood Count 4.07 X10*6/uL (4.20-5.50); Red Cell Distribution Width 15.4 % (11.0-16.0); White Blood Count 5.5 X10*3/uL (4.8-10.8)
[2022-04-01 20:40] LABS: Prothrombin Time 11.4 SEC (10.0-13.1)
[2022-04-01 20:42] LABS: Partial Thromboplastin Time 31.6 SEC (24.1-38.0)
[2022-04-01 20:52] LABS: COVID-19 Test Negative (Negative)
[2022-04-01 20:53] VITALS: BP 135/83; PULSE 51; RESP 16; TEMP 36.8; O2SAT 98
[2022-04-01 21:04] LABS: Troponin-I High Sensitivity < 3.5 ng/L (<3.5-17.0)
[2022-04-01 21:27] LABS: Alanine Aminotransferase 9 U/L (0-31); Albumin Level 4.1 g/dL (3.5-5.0); Alkaline Phosphatase 122 U/L (39-117); Anion Gap 11 (12-20); Aspartate Amino Transferase 18 U/L (5-31); Bilirubin Total 0.2 mg/dL (0.0-1.0); Blood Urea Nitrogen 9 mg/dL (9-16); Calcium 9.5 mg/dL (8.4-10.2); Carbon Dioxide 25 mmol/L (22-29); Chloride 106 mmol/L (96-108); Creatinine Clr Calc Pharmacy 84.3; Estimated Glomerular Filt Rate > 60; Glucose Random 95 mg/dL (60-115); Potassium 4.1 mmol/L (3.3-5.1); Sodium 138 mmol/L (135-145); Total Protein 7.1 g/dL (6.5-8.0)
[2022-04-01] MEDS: predniSONE 20 MG TABLET 40 MG PO (21:33)
[2022-04-01] MEDS: Ketorolac Tromethamine 30 MG/ML VIAL IVPUSH (21:33)
[2022-04-01 21:52] VITALS: BP 124/77; PULSE 52; RESP 16; TEMP 36.4; O2SAT 98
[2022-04-01 22:04] LABS: D Dimer High Sensitivity 292 NG/ML
[2022-04-01 22:16] LABS: B Type Natriuretic Peptide 50 pg/mL (<100)
[2022-04-01] MEDS: iohexoL 350 MG/ML 100 ML INFUS..BTL 65 ML IV (23:30)
[2022-04-01 23:38] VITALS: BP 126/74; PULSE 59; RESP 16; TEMP 36.7; O2SAT 98
== END 2022-04-02 00:53 | disposition home or self-care (01) ==
PROVIDERS: Physician Assistant; Emergency Provider Internal Medicine; PCP General Practice
DX: R07.89 Other chest pain (principal); R06.02 Shortness of breath; Z79.899 Other long term (current) drug therapy; Z20.822 Contact with and (suspected) exposure to COVID-19
CPT/HCPCS: 36415; 71046; 71275; 80053; 83880; 84484; 85025; 85379; 85610; 85730; 87635; 93005; 96374; 99284; J1885; Q9967

== ENCOUNTER 2022-12-10 10:13 | Outpatient (REF) | payer OTHER, SELFPAY ==
--- NOTE | ~2022-12-10 | XR_ITS ---
EXAMINATION: XR ELBOW, LEFT XR WRIST, LEFT XR SHOULDER, LEFT CLINICAL INDICATION: Pain. COMPARISON: Left wrist 09/11/2021. TECHNIQUE: Left wrist 4 views. Left shoulder 4 views. Left elbow 3 views. FINDINGS: LEFT WRIST: There is no visible acute fracture, dislocation or subluxation. No bony erosive changes. The soft tissues are normal. LEFT ELBOW: There is no visible acute fracture, dislocation or subluxation seen. No bony erosive changes. There is no joint effusion seen. LEFT SHOULDER: There is no acute fracture, dislocation subluxation. The glenohumeral and AC joints are maintained and normal. The soft tissues are normal. XR/XR wrist LT min 3V IMPRESSION: Unremarkable left wrist exam. Unremarkable left elbow exam. Unremarkable left shoulder exam.
--- NOTE | ~2022-12-10 | XR_ITS ---
EXAMINATION: XR ELBOW, LEFT XR WRIST, LEFT XR SHOULDER, LEFT CLINICAL INDICATION: Pain. COMPARISON: Left wrist 09/11/2021. TECHNIQUE: Left wrist 4 views. Left shoulder 4 views. Left elbow 3 views. FINDINGS: LEFT WRIST: There is no visible acute fracture, dislocation or subluxation. No bony erosive changes. The soft tissues are normal. LEFT ELBOW: There is no visible acute fracture, dislocation or subluxation seen. No bony erosive changes. There is no joint effusion seen. LEFT SHOULDER: There is no acute fracture, dislocation subluxation. The glenohumeral and AC joints are maintained and normal. The soft tissues are normal. XR/XR elbow LT 2V IMPRESSION: Unremarkable left wrist exam. Unremarkable left elbow exam. Unremarkable left shoulder exam.
--- NOTE | ~2022-12-10 | XR_ITS ---
EXAMINATION: XR ELBOW, LEFT XR WRIST, LEFT XR SHOULDER, LEFT CLINICAL INDICATION: Pain. COMPARISON: Left wrist 09/11/2021. TECHNIQUE: Left wrist 4 views. Left shoulder 4 views. Left elbow 3 views. FINDINGS: LEFT WRIST: There is no visible acute fracture, dislocation or subluxation. No bony erosive changes. The soft tissues are normal. LEFT ELBOW: There is no visible acute fracture, dislocation or subluxation seen. No bony erosive changes. There is no joint effusion seen. LEFT SHOULDER: There is no acute fracture, dislocation subluxation. The glenohumeral and AC joints are maintained and normal. The soft tissues are normal. XR/XR shoulder LT min 2V IMPRESSION: Unremarkable left wrist exam. Unremarkable left elbow exam. Unremarkable left shoulder exam.
== END 2022-12-10 10:14 | disposition home or self-care (01) ==
LOC: HO.XRAY 10:13
PROVIDERS: PCP General Practice; Visit Provider General Practice
DX: M25.512 Pain in left shoulder (principal); M25.522 Pain in left elbow; M25.532 Pain in left wrist; V03.10XS Pedestrian on foot injured in collision with car, pick-up truck or van in traffic accident, sequela
CPT/HCPCS: 73030; 73070; 73110

== ENCOUNTER 2023-02-05 16:33 | Emergency (ER) | payer OTHER, MEDICAID, SELFPAY ==
--- NOTE | ~2023-02-05 | XR_ITS ---
EXAMINATION: XR SHOULDER, LEFT CLINICAL INFORMATION: Shoulder pain COMPARISON: None available. TECHNIQUE: AP external rotation, Grashey, scapular Y, and axillary views of the left shoulder. FINDINGS: No evidence of acute fracture or dislocation. Mild acromioclavicular arthritis. Glenohumeral and acromioclavicular alignment is anatomic with normal joint space. No abnormal soft tissue calcifications. XR/XR shoulder LT min 2V IMPRESSION: Mild acromioclavicular arthritis. No acute findings.
[2023-02-05 17:01] VITALS: BP 144/87; PULSE 77; RESP 20; TEMP 36.9; O2SAT 97; BMI 30.4
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
== END 2023-02-05 18:53 | disposition home or self-care (01) ==
PROVIDERS: Emergency Provider Emergency Medicine; PCP General Practice
DX: M19.012 Primary osteoarthritis, left shoulder (principal); S43.422A Sprain of left rotator cuff capsule, initial encounter; X58.XXXA Exposure to other specified factors, initial encounter; M25.512 Pain in left shoulder; Y93.9 Activity, unspecified; Y92.9 Unspecified place or not applicable; Y99.9 Unspecified external cause status
CPT/HCPCS: 73030; 99282; 99283

== ENCOUNTER 2023-03-09 13:54 | Emergency (ER) | payer MEDICAID, SELFPAY ==
[2023-03-09 15:02] VITALS: BP 154/97; PULSE 99; RESP 18; TEMP 36.1; O2SAT 97; BMI 30.9
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
== END 2023-03-09 16:30 | disposition home or self-care (01) ==
PROVIDERS: Emergency Provider Emergency Medicine; PCP General Practice
DX: M25.512 Pain in left shoulder (principal); M25.562 Pain in left knee
CPT/HCPCS: 99282; 99283

== ENCOUNTER 2023-06-02 08:29 | Outpatient (REF) | payer MEDICAID, SELFPAY ==
--- NOTE | ~2023-06-02 | XR_ITS ---
EXAMINATION: X-ray bilateral knees X-ray left knee CLINICAL INFORMATION: Knee pain COMPARISON: None TECHNIQUE: AP bilateral knees one view. Left knee 2 views. FINDINGS: Left knee: Mild medial compartment joint space narrowing. Small marginal patellar spurs. No acute fracture or dislocation. Trace joint effusion. Right knee: Mild medial compartment joint space narrowing. XR/XR knee standing BI IMPRESSION: Left knee: Mild medial and patellofemoral compartment osteoarthritis.
--- NOTE | ~2023-06-02 | XR_ITS ---
EXAMINATION: X-ray bilateral knees X-ray left knee CLINICAL INFORMATION: Knee pain COMPARISON: None TECHNIQUE: AP bilateral knees one view. Left knee 2 views. FINDINGS: Left knee: Mild medial compartment joint space narrowing. Small marginal patellar spurs. No acute fracture or dislocation. Trace joint effusion. Right knee: Mild medial compartment joint space narrowing. XR/XR knee LT 2V IMPRESSION: Left knee: Mild medial and patellofemoral compartment osteoarthritis.
== END 2023-06-02 08:30 | disposition home or self-care (01) ==
LOC: HO.HOSX 08:29
PROVIDERS: Visit Provider Physician Assistant
DX: M23.92 Unspecified internal derangement of left knee (principal); M25.562 Pain in left knee
CPT/HCPCS: 73560; 73565; 99212

== ENCOUNTER 2023-06-02 09:56 | Outpatient (AMB) | payer MEDICAID, SELFPAY ==
[2023-06-02 10:12] VITALS: BMI 30.9
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
== END 2023-06-02 11:48 | disposition home or self-care (01) ==
PROVIDERS: PCP General Practice; Visit Provider Physician Assistant
DX: M23.92 Unspecified internal derangement of left knee (principal)
CPT/HCPCS: 99204

== ENCOUNTER 2023-06-08 12:32 | Outpatient (AMB) | payer OTHER, MEDICAID, SELFPAY ==
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
[2023-06-08 12:36] VITALS: BMI 30.9
== END 2023-06-08 13:32 | disposition home or self-care (01) ==
PROVIDERS: PCP General Practice; Visit Provider Physician Assistant
DX: M19.012 Primary osteoarthritis, left shoulder (principal); V89.2XXA Person injured in unspecified motor-vehicle accident, traffic, initial encounter; Z04.3 Encounter for examination and observation following other accident
CPT/HCPCS: 99214

== ENCOUNTER → 2023-06-08 12:32 | Outpatient (BNVA) | payer MEDICAID, SELFPAY | PROVIDERS: PCP General Practice; Visit Provider Physician Assistant | DX: M19.012 Primary osteoarthritis, left shoulder (principal) | CPT/HCPCS: 20610; 99212; J1040 ==

== ENCOUNTER 2023-06-10 16:33 | Emergency (ER) | payer MEDICAID, SELFPAY ==
--- NOTE | ~2023-06-10 | CT_ITS ---
EXAMINATION: CT HEAD WITHOUT CONTRAST CLINICAL INFORMATION: Blurred vision. 10 days of headache. COMPARISON: 02/13/2022. MRI performed 02/14/2022. TECHNIQUE: Contiguous axial imaging was performed from the skull base to vertex without intravenous administration of contrast. This CT examination was performed using dose optimization techniques as appropriate, variously including the following: *Automated exposure control *Adjustment of mA and/or kV according to patient size (this includes techniques or standardized protocols for targeted exams where dose is matched to indication/reason for exam; i.e. extremities or head) *Use of iterative reconstruction technique DLP: 596 mGy-cm FINDINGS: The lateral, third and fourth ventricles are normally outlined. The cortical sulci and basal cisterns are normally outlined as well. There is no acute territorial defect, hemorrhage or midline shift. A stable pineal region low-density structure/cyst is again seen with peripheral calcification. Calvarium: Intact. Maxillofacial sinuses and mastoids: Clear as visualized CT/CT head/brain wo IV con IMPRESSION: No acute intracranial pathology. No significant change.
--- NOTE | 2023-06-10 16:55 | ED.GENADULT ---
HPI - General Adult General Chief complaint: General Medical Stated complaint: headache for a few days now Time Seen by Provider: 06/11/23 00:44 Source: patient Mode of arrival: ambulatory Limitations: no limitations History of Present Illness HPI narrative: Patient comes to the emergency room complaining of days of headache, photophobia. Initially, patient reported blurred vision, patient states that is not so much but version, is mostly photophobia. Patient denies visual changes. Patient denies neck pain, no fever chills. Patient states that 3 days ago she took sumatriptan but did not help. Patient ran out of sumatriptan also 3 days ago. Related Data Home Medications Medication Instructions Recorded Confirmed baclofen 10 mg tablet 10 mg PO TID PRN Muscle Spasm 09/05/20 02/13/22 hydrochlorothiazide 25 mg tablet 25 mg PO DAILY 09/05/20 02/13/22 loratadine 10 mg tablet 10 mg PO DAILY 09/05/20 02/13/22 quetiapine 100 mg tablet (Seroquel) 100 mg PO BEDTIME 09/05/20 02/13/22 zolpidem 10 mg tablet (Ambien) 5 mg PO BEDTIME PRN Sleep 09/05/20 02/13/22 cholecalciferol (vitamin D3) 50 50 mcg PO DAILY 08/27/21 02/13/22 mcg (2,000 unit) tablet albuterol sulfate 90 mcg/actuation 2 puff inhalation QID PRN Wheezing 02/13/22 02/13/22 aerosol inhaler atorvastatin 80 mg tablet 80 mg PO BEDTIME 02/13/22 02/13/22 fluticasone propionate 110 2 puff inhalation BID 02/13/22 02/13/22 mcg/actuation HFA aerosol inhaler (Flovent HFA) quetiapine 25 mg tablet (Seroquel) 1 tab PO BID 02/13/22 02/13/22 sumatriptan succinate 100 mg tablet 100 mg PO DAILY MRX1 PRN headaches 02/13/22 02/13/22 Previous Rx's Medication Instructions Recorded buspirone 5 mg tablet 5 mg PO BID #60 tabs 12/30/21 clonidine HCl 0.1 mg tablet 0.1 mg PO BID #60 tabs 02/15/22 lisinopril 20 mg tablet 10 mg (1/2 x 20 mg) PO DAILY #0 02/15/22 tabs naproxen 500 mg tablet 500 mg PO BID PRN pain 10 days #20 04/02/22 tabs prednisone 20 mg tablet 40 mg (2 x 20 mg) PO DAILY 5 days 04/02/22 #10 tabs lansoprazole 30 mg capsule,delayed 30 mg PO QAM #30 caps 10/08/22 release ibuprofen 600 mg tablet 600 mg PO TID PRN pain #20 tabs 02/05/23 tramadol 50 mg tablet 50 mg PO BID PRN pain #10 tabs 02/05/23 lidocaine 5 % topical patch 1 patch topical DAILY #15 ea 03/09/23 naproxen 500 mg tablet 500 mg PO BID PRN pain #20 tabs 03/09/23 linaclotide 290 mcg capsule 290 mcg PO DAILY #30 caps 04/23/23 (Linzess) addfpxltug-jmqjfrlwfwjmh-iwwbjaby 1 cap PO Q8H PRN pain #10 caps 06/11/23 50 mg-300 mg-40 mg capsule (Fioricet) Allergies Allergy/AdvReac Type Severity Reaction Status Date / Time No Known Allergies Allergy Verified 06/08/23 12:35 Review of Systems Review of Systems: Constitutional : No Weight loss, No Fever, No Chills, No Night Sweats, No Fatigue, No Malaise ENT/Mouth : No Hearing loss, No Ear Pain, No Nasal Congestion, No Sinus Pain, No Hoarseness, No sore throat, No Rhinorrhea, No Swallowing Difficulty Eyes: Complaining of photophobia, No Eye Pain, No Swelling, No Redness, No Foreign Body, No Discharge, No Vision Changes Cardiovascular : No Chest Pain, No SOB, No Dyspnea on Exertion, No Orthopnea, No Edema, No Palpitations Respiratory : No Cough, No Sputum, No Wheezing, No Smoke Exposure, No Dyspnea Gastrointestinal : No Nausea, No Vomiting, No Diarrhea, No Constipation, No abdominal Pain, No Hematochezia, No Melena Genitourinary : no irregular bleeding, No Dysuria, No Urinary Frequency, No Hematuria, No Urinary Incontinence, No Urgency, No Flank Pain, No Urinary Flow Changes, No Hesitancy Musculoskeletal : No joint pain, No Myalgias, No Joint Swelling Skin : No Skin Lesions, No rash Neuro : No Weakness, No Numbness, No Paresthesias, No Loss of Consciousness, No Dizziness, complaining of a migraine headache Psych : No Anxiety/Panic, No Depression, No SI/HI/AH/VH, No Social Issues, Heme/Lymph: No Bruising, No Bleeding,No Lymphadenopathy Endocrine : No Polyuria, No Polydipsia, No Temperature Intolerance [facility] Past Medical History Medical History GERD (gastroesophageal reflux disease) Hypothyroid Hx of hepatitis C Migraines Anxiety Depression Asthma Hypertension Surgical History History of esophagogastroduodenoscopy (EGD) History of nasal surgery History of tubal ligation History of colonoscopy Family History Family History Father No problems noted. Mother HTN (hypertension) Social History Social History Household Members: None Are you a primary home care manager rn to a significant other at home: No Do you presently have visiting nurse or other home services: No Alcohol intake: never Patient Tobacco Use Status: Never used Tobacco Smoked in Last 30 Days: No Use of substances other than those prescribed or required for medical reasons: No Advance Directives: Yes Advance Directives on File: Yes Advance Directives Date on File: 02/19/22 service: No Current occupational status: employed Physical Exam ED Vital Signs: Vital Signs - 24 hr 06/10/23 16:56 06/10/23 22:24 06/10/23 23:42 Temperature 99.2 F 98.7 F 98.6 F Pulse Rate 80 83 61 Respiratory Rate 18 18 16 Blood Pressure 197/100 H 176/97 H 167/78 H Pulse Oximetry 100 100 97 Oxygen Delivery Method Room Air Room Air Room Air BMI result Body Mass Index 32.4 Const Other: Appearance: Alert. Oriented X3. No acute distress. Eyes: Pupils equal, round and reactive to light. Patient has photophobia ENT: Pharynx normal. Neck: Normal inspection. Neck supple. No lymph nodes noted. No crepitus CVS: Normal heart rate and rhythm. Pulses normal. Normal S1 and S2 Respiratory: No respiratory distress. Breath sounds normal. No Wheezing. No rales Abdomen: Soft and nontender. No rigidity. No distention. Skin: Skin warm and dry. Normal skin color. Normal skin turgor. Extremities: No lower extremity edema. No Lacerations. No Rash Neuro: Oriented X 3. No motor deficit. No sensory deficit. Moving all extremities. No slurred speech. CN 2 through 12 grossly intact Psych: calm, cooperative, normal affect Course Course Course Narrative: This is a rapid medical exam: Additional HPI, ROS, PE not included below will be deferred to primary provider. Patient is a 57-year-old [place]-speaking female with history of HTN and migraines presenting to the emergency department with complaint of headache for 10 days. She went to the clinic and had sumatriptan prescribed, but headache has returned. Reports BP has also been elevated. BP 197/100 in triage. Denies chest pain or shortness of breath but reports palpitations. Complains of blurred vision for all ten days, lightheaded. Difficulty sleeping. Plan: EKG, labs, CXR, CT head Medications Administered Generic Name Dose Route Start Last Admin Trade Name Freq PRN Reason Stop Dose Admin Sodium Chloride 1,000 mls @ 999 mls/hr 06/11/23 00:49 06/11/23 01:03 Ns IVCONT 06/11/23 01:49 999 mls/hr .Q1H1M ONE Administration Discontinued Medications Generic Name Dose Route Start Last Admin Trade Name Freq PRN Reason Stop Dose Admin Diphenhydramine HCl 25 mg 06/11/23 00:49 06/11/23 01:03 Diphenhydramine Hcl 50 Mg/Ml Vial IVPUSH 06/11/23 00:50 25 mg ONCE ONE Administration Ketorolac Tromethamine 30 mg 06/11/23 00:49 06/11/23 01:03 Ketorolac Tromethamine 30 Mg/Ml Vial IVPUSH 06/11/23 00:50 30 mg ONCE ONE Administration Metoclopramide HCl 10 mg 06/11/23 00:49 06/11/23 01:03 Metoclopramide Hcl 10 Mg/2 Ml Vial IVPUSH 06/11/23 00:50 10 mg ONCE ONE Administration Medical Decision Making Medical Decision Making [facility] Narrative: -my interpretation of CT scan: No intracranial bleed, no obvious masses -my interpretation of labs, hematology and chemistry unremarkable, troponin negative -my interpretation of EKG: Normal sinus rhythm, heart rate 66, no ST segment depression or elevation, no T-wave inversion, QTC 436 -patient receiving IV fluids, Toradol, Benadryl, Reglan -patient requesting to change her prescription from sumatriptan to Fioricet which she believes it works better for her. -after IV fluids, and medications mentioned above, patient feeling much better. Patient ready for discharge Differential Diagnosis Differential Diagnoses: The differential diagnosis associated with the presentation includes (Intracranial bleed, tension headache, migraine headache) Admission/Observation Consideration of admission/observation: Escalation of care including admission/observation considered (On arrival, given the patient's symptoms, admission was considered) Lab Data MDM Lab Attestation statement: I reviewed the patient's lab results. 06/10/23 17:22 06/10/23 17:22 Labs: Lab Results 06/10/23 Range/Units 17:22 WBC 7.6 (4.8-10.8) X10*3/uL RBC 4.41 (4.20-5.50) X10*6/uL Hgb 11.8 L (12.0-16.0) g/dl Hct 36.1 L (37.0-47.0) % MCV 81.9 (80.0-98.0) fL MCH 26.8 L (27.0-33.0) pg MCHC 32.7 (31.0-35.0) g/dl RDW 16.8 H (11.0-16.0) % Plt Count 300 (160-400) X10*3/uL MPV 9.5 (9.4-12.3) fL Immature Gran % (Auto) 0.1 (0.0-0.4) % Neut % (Auto) 58.7 (45-73) % Lymph % (Auto) 32.8 (20-40) % [place] % (Auto) 7.2 (2-11) % Eos % (Auto) 0.5 (0-4) % Baso % (Auto) 0.7 (0-2) % Lymph # (Auto) 2.5 (1.2-4.9) X10*3/uL [place] # (Auto) 0.6 (0.1-1.2) X10*3/uL Eos # (Auto) 0.0 (0.0-0.4) X10*3/uL Baso # (Auto) 0.1 (0.0-0.2) X10*3/uL Abs Immat Gran (auto) 0.01 (0.00-0.03) X10*3/uL Absolute Neuts (auto) 4.5 (2.0-8.3) x10*3/uL Absolute Nucleated RBC 0.000 (0.0-0.012) X10*3/uL Nucleated RBC % (auto) 0.0 (0.0-0.2) /100WBC Sodium 138 (135-145) mmol/L Potassium 3.6 (3.3-5.1) mmol/L Chloride 102 (96-108) mmol/L Carbon Dioxide 26 (22-29) mmol/L Anion Gap 14 (12-20) BUN 12 (9-16) mg/dL Creatinine 0.92 (0.5-1.4) mg/dL Estim Creat Clear Calc 73.2 Estimated GFR > 60 Random Glucose 96 (60-115) mg/dL Calcium 10.0 (8.4-10.2) mg/dL Total Bilirubin 0.3 (0.0-1.0) mg/dL AST 24 (5-31) U/L ALT 15 (0-31) U/L Alkaline Phosphatase 99 (39-117) U/L Troponin I High Sens < 2.7 (<3.5-17.0) ng/L Total Protein 8.0 (6.5-8.0) g/dL Albumin 4.5 (3.5-5.0) g/dL Independent Interpretation I performed an independent interpretation of an: CT Scan Radiology Impression Discussion of test interpretation with radiology: I have reviewed the radiologist's reading. Radiologist Impression: FINDINGS: The lateral, third and fourth ventricles are normally outlined. The cortical sulci and basal cisterns are normally outlined as well. There is no acute territorial defect, hemorrhage or midline shift. A stable pineal region low-density structure/cyst is again seen with peripheral calcification. Calvarium: Intact. Maxillofacial sinuses and mastoids: Clear as visualized CT/CT head/brain wo IV con IMPRESSION: No acute intracranial pathology. No significant change. Critical Care Time Critical Care Time Critical Care Time: Yes Total Critical Care Time: 60 Attestation: I have personally provided critical care time. Time includes review of lab data, radiology results, discussion with consultants, and monitoring for potential decompensation. Intervention performed as documented. Discharge Plan Discharge Clinical Impression: Migraine Patient Disposition: Home, Self-Care Instructions: Migraine Headache (ED) Additional Instructions: Please follow-up with your primary care physician tomorrow. If you have any worsening or new symptoms, please return to the emergency room or call 911 Prescriptions: New ylzqkonwxt-fdszwlmgiqwgq-ivho [Fioricet] 50-300-40 mg capsule 1 cap PO Q8H PRN (Reason: pain) Qty: 10 0RF No Action buspirone 5 mg tablet 5 mg PO BID Qty: 60 1RF lansoprazole 30 mg capsule,delayed release(DR/EC) 30 mg PO QAM Qty: 30 4RF Linzess 290 mcg capsule 290 mcg PO DAILY Qty: 30 3RF quetiapine [Seroquel] 100 mg Tablet 100 mg PO BEDTIME baclofen 10 mg Tablet 10 mg PO TID PRN (Reason: Muscle Spasm) hydrochlorothiazide 25 mg Tablet 25 mg PO DAILY zolpidem [Ambien] 10 mg Tablet 5 mg PO BEDTIME PRN (Reason: Sleep) loratadine 10 mg Tablet 10 mg PO DAILY quetiapine [Seroquel] 25 mg tablet 1 tab PO BID sumatriptan succinate 100 mg tablet 100 mg PO DAILY MRX1 PRN (Reason: headaches) atorvastatin 80 mg Tablet 80 mg PO BEDTIME albuterol sulfate 90 mcg/actuation Hfa Aerosol Inhaler 2 puff INHALATION QID PRN (Reason: Wheezing) Flovent HFA 110 mcg/actuation Hfa Aerosol Inhaler 2 puff INHALATION BID clonidine HCl 0.1 mg Tablet 0.1 mg PO BID Qty: 60 0RF Protocol: Hold for SBP< HOLD for SBP < : 90 lisinopril 20 mg tablet 10 mg PO DAILY Qty: 0 0RF naproxen 500 mg tablet 500 mg PO BID PRN (Reason: pain) 10 Days Qty: 20 0RF prednisone 20 mg tablet 40 mg PO DAILY 5 Days Qty: 10 0RF ibuprofen 600 mg tablet 600 mg PO TID PRN (Reason: pain) Qty: 20 0RF tramadol 50 mg tablet 50 mg PO BID PRN (Reason: pain) Qty: 10 0RF naproxen 500 mg tablet 500 mg PO BID PRN (Reason: pain) Qty: 20 0RF lidocaine 5 % adhesive patch,medicated 1 patch topical DAILY Qty: 15 0RF Rx Instructions: leave on most painful area for up to 12 hrs cholecalciferol (vitamin D3) 50 mcg (2,000 unit) tablet 50 mcg PO DAILY Stand Alone Forms: Work/School Release
[2023-06-10 16:56] VITALS: BP 197/100; PULSE 80; RESP 18; TEMP 37.3; O2SAT 100; BMI 32.4
--- NOTE | 2023-06-10 16:59 | ECG_ITS ---
Test Reason : chest pressure Blood Pressure : / mmHG Vent. Rate : 066 BPM Atrial Rate : 066 BPM P-R Int : 150 ms QRS Dur : 084 ms QT Int : 416 ms P-R-T Axes : 053 024 034 degrees QTc Int : 436 ms Normal sinus rhythm Normal ECG When compared with ECG of 01-APR-2022 16:04, No significant change was found Referred By: Rosibel Blue Electronically Signed By:AMARI LI
[2023-06-10 17:31] LABS: MANUAL DIFF FLAG NO
[2023-06-10 17:34] LABS: Basophils Absolute Auto 0.1 X10*3/uL (0.0-0.2); Basophils Percent Auto 0.7 % (0-2); Eosinophils Percent Auto 0.5 % (0-4); Hematocrit 36.1 % (37.0-47.0); Hemoglobin 11.8 g/dl (12.0-16.0); Imm Gran Abs Auto 0.01 X10*3/uL (0.00-0.03); Imm Gran Pct Auto 0.1 % (0.0-0.4); Lymphocytes Absolute Auto 2.5 X10*3/uL (1.2-4.9); Lymphocytes Percent Auto 32.8 % (20-40); Mean Corpuscular HGB Conc 32.7 g/dl (31.0-35.0); Mean Corpuscular Hemoglobin 26.8 pg (27.0-33.0); Mean Corpuscular Volume 81.9 fL (80.0-98.0); Mean Platelet Volume 9.5 fL (9.4-12.3); Monocytes Absolute Auto 0.6 X10*3/uL (0.1-1.2); Monocytes Percent Auto 7.2 % (2-11); Neutrophils Absolute Auto 4.5 x10*3/uL (2.0-8.3); Neutrophils Percent Auto 58.7 % (45-73); Platelet Count 300 X10*3/uL (160-400); Red Blood Count 4.41 X10*6/uL (4.20-5.50); Red Cell Distribution Width 16.8 % (11.0-16.0); White Blood Count 7.6 X10*3/uL (4.8-10.8)
[2023-06-10 18:09] LABS: Alanine Aminotransferase 15 U/L (0-31); Albumin Level 4.5 g/dL (3.5-5.0); Alkaline Phosphatase 99 U/L (39-117); Anion Gap 14 (12-20); Aspartate Amino Transferase 24 U/L (5-31); Bilirubin Total 0.3 mg/dL (0.0-1.0); Blood Urea Nitrogen 12 mg/dL (9-16); Carbon Dioxide 26 mmol/L (22-29); Chloride 102 mmol/L (96-108); Creatinine Clr Calc Pharmacy 73.2; Estimated Glomerular Filt Rate > 60; Glucose Random 96 mg/dL (60-115); Potassium 3.6 mmol/L (3.3-5.1); Sodium 138 mmol/L (135-145)
[2023-06-10 18:20] LABS: Troponin-I High Sensitivity < 2.7 ng/L (<3.5-17.0)
[2023-06-10 22:24] VITALS: BP 176/97; PULSE 83; RESP 18; TEMP 37.1; O2SAT 100
[2023-06-10 23:42] VITALS: BP 167/78; PULSE 61; RESP 16; TEMP 37; O2SAT 97
[2023-06-11] MEDS: Ketorolac Tromethamine 30 MG/ML VIAL IVPUSH (01:03)
[2023-06-11] MEDS: diphenhydrAMINE HCL 50 MG/ML VIAL 25 MG IVPUSH (01:03)
[2023-06-11] MEDS: Metoclopramide HCl 10 MG/2 ML VIAL IVPUSH (01:03)
[2023-06-11] MEDS: 0.9 % Sodium Chloride 1,000 ML 999 ML IVCONT (01:03)
== END 2023-06-11 02:35 | disposition home or self-care (01) ==
PROVIDERS: Registered Nurse Emergency; Emergency Provider Emergency Medicine; PCP General Practice
DX: G43.909 Migraine, unspecified, not intractable, without status migrainosus (principal); H53.143 Visual discomfort, bilateral; R07.89 Other chest pain; Z79.899 Other long term (current) drug therapy
CPT/HCPCS: 36415; 70450; 80053; 84484; 85025; 93005; 96361; 96374; 96375; 99284; 99285; J1200; J1885; J2765

== ENCOUNTER 2023-07-10 15:14 | Outpatient (REF) | payer MEDICAID, SELFPAY ==
--- NOTE | ~2023-07-10 | MR_ITS ---
EXAMINATION: MR KNEE WITHOUT CONTRAST, LEFT CLINICAL INFORMATION: Internal derangement of the left knee, patient reports pain and swelling of the knee. COMPARISON: X-rays of the left knee 06/02/2023 TECHNIQUE: MRI of the knee without contrast was performed using routine sequences on a high-field scanner. FINDINGS: Exam is somewhat limited by image degrading motion artifact on several series. MENISCI: Medial Meniscus: Intact Lateral Meniscus: Intact LIGAMENTS: Cruciate: ACL: Mild heterogeneity of the ligament which could reflect mucoid degeneration or tear. If tear present likely incomplete/partial thickness. PCL: Intact. Collateral: Intact EXTENSOR MECHANISM: Intact ARTICULAR CARTILAGE/BONE: Patellofemoral Compartment: Scattered cartilage heterogeneity with minimal subchondral edema, small subchondral cysts, and small marginal osteophytes. Mild cartilage heterogeneity of the distal medial trochlea. Overall mild patellofemoral arthrosis. Medial Compartment: Subchondral edema along the posterior margin of the medial plateau compatible with bone contusion. Lateral Compartment: Minimal cartilage heterogeneity of the posterior tibial articular cartilage indicative of minimal arthrosis. JOINT FLUID AND BURSAE: There is a mild joint effusion and small Pascual's cyst. MR/MR knee LT wo con IMPRESSION: 1. Bone contusion along the posterior margin of the medial plateau. 2. Mild arthrosis of the patellofemoral compartment. 3. Minimal arthrosis of the lateral compartment. Mild joint effusion and small Pascual's cyst. 4. Subtle findings in the anterior cruciate ligament. This could reflect mucoid degeneration or partial tearing. If partial tear this likely is incomplete/partial thickness. Correlate with clinical exam to help determine likelihood of ACL tear.
== END 2023-07-10 15:15 | disposition home or self-care (01) ==
LOC: HO.MRI 15:14
PROVIDERS: PCP General Practice; Visit Provider Physician Assistant
DX: M23.92 Unspecified internal derangement of left knee (principal)
CPT/HCPCS: 73721

== ENCOUNTER 2023-07-14 14:44 | Outpatient (REF) | payer MEDICAID, SELFPAY | END 2023-07-14 14:45 | disposition home or self-care (01) | LOC: HO.MAMMO 14:44 | PROVIDERS: PCP General Practice; Visit Provider General Practice | DX: Z12.31 Encounter for screening mammogram for malignant neoplasm of breast (principal) | CPT/HCPCS: 77063; 77067 ==

== ENCOUNTER → 2023-07-14 15:00 | Outpatient (BNV) | payer MEDICAID, SELFPAY | PROVIDERS: PCP General Practice; Visit Provider Radiology Diagnostic Radiology | DX: Z12.31 Encounter for screening mammogram for malignant neoplasm of breast (principal) | CPT/HCPCS: 77063; 77067 ==

== ENCOUNTER 2023-07-24 13:02 | Emergency (ER) | payer MEDICAID, SELFPAY ==
--- NOTE | ~2023-07-24 | CT_ITS ---
EXAMINATION: CT HEAD WITHOUT CONTRAST CLINICAL INFORMATION: Migraine. COMPARISON: CT head 06/10/2023. TECHNIQUE: Contiguous axial imaging was performed from the skull base to vertex without intravenous administration of contrast. This CT examination was performed using dose optimization techniques as appropriate, variously including the following: *Automated exposure control *Adjustment of mA and/or kV according to patient size (this includes techniques or standardized protocols for targeted exams where dose is matched to indication/reason for exam; i.e. extremities or head) *Use of iterative reconstruction technique DLP: 573 mGy-cm FINDINGS: There is no evidence of acute intracranial hemorrhage or edematous territorial infarction. There is no abnormal attenuation within the brain parenchyma. Barrera-white matter differentiation is preserved. The ventricles are normal in size and configuration. No evidence for obstructive hydrocephalus. No abnormal mass effect or midline shift. No extra-axial fluid collections. 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 No acute soft tissue or osseous abnormalities. Mucosal thickening of the paranasal sinuses. No air-fluid level. Mastoids and middle ear cavities are clear. CT/CT head/brain wo IV con IMPRESSION: No evidence of acute intracranial hemorrhage or edematous territorial infarction.
[2023-07-24 14:19] VITALS: BP 184/94; PULSE 86; RESP 18; TEMP 36.8; O2SAT 98; BMI 24.0
--- NOTE | 2023-07-24 14:19 | ED.GENADULT ---
HPI - General Adult General Chief complaint: Headache Stated complaint: Headache Blurry Vision High Blood Pressure Time Seen by Provider: 07/24/23 15:40 History of Present Illness HPI narrative: 57 y/o F patient; PMH gastroparesis, HTN (lisinopril and hydrochlorthiazide), anxiety/depression, asthma, hypothyroidism, GERD; presents from home reporting five days of generalized headache associated with shiny spots in her vision and nausea. She has been taking her blood pressure at home and noted it was elevated. The patient states she has a history of headaches for which she takes Amitriptyline. She states her current headache feels similar to her prior headaches but more intense. + photophobia and phonophobia. She last took Tylenol this morning. She denies: chest pain, SOB, vomiting/nausea, abdominal pain, diarrhea, recent trauma. Related Data Home Medications Medication Instructions Recorded Confirmed baclofen 10 mg tablet 10 mg PO TID PRN Muscle Spasm 09/05/20 02/13/22 hydrochlorothiazide 25 mg tablet 25 mg PO DAILY 09/05/20 02/13/22 loratadine 10 mg tablet 10 mg PO DAILY 09/05/20 02/13/22 quetiapine 100 mg tablet (Seroquel) 100 mg PO BEDTIME 09/05/20 02/13/22 zolpidem 10 mg tablet (Ambien) 5 mg PO BEDTIME PRN Sleep 09/05/20 02/13/22 cholecalciferol (vitamin D3) 50 50 mcg PO DAILY 08/27/21 02/13/22 mcg (2,000 unit) tablet albuterol sulfate 90 mcg/actuation 2 puff inhalation QID PRN Wheezing 02/13/22 02/13/22 aerosol inhaler atorvastatin 80 mg tablet 80 mg PO BEDTIME 02/13/22 02/13/22 fluticasone propionate 110 2 puff inhalation BID 02/13/22 02/13/22 mcg/actuation HFA aerosol inhaler (Flovent HFA) quetiapine 25 mg tablet (Seroquel) 1 tab PO BID 02/13/22 02/13/22 sumatriptan succinate 100 mg tablet 100 mg PO DAILY MRX1 PRN headaches 02/13/22 02/13/22 Previous Rx's Medication Instructions Recorded buspirone 5 mg tablet 5 mg PO BID #60 tabs 12/30/21 clonidine HCl 0.1 mg tablet 0.1 mg PO BID #60 tabs 02/15/22 lisinopril 20 mg tablet 10 mg (1/2 x 20 mg) PO DAILY #0 02/15/22 tabs naproxen 500 mg tablet 500 mg PO BID PRN pain 10 days #20 04/02/22 tabs prednisone 20 mg tablet 40 mg (2 x 20 mg) PO DAILY 5 days 04/02/22 #10 tabs lansoprazole 30 mg capsule,delayed 30 mg PO QAM #30 caps 10/08/22 release ibuprofen 600 mg tablet 600 mg PO TID PRN pain #20 tabs 02/05/23 tramadol 50 mg tablet 50 mg PO BID PRN pain #10 tabs 02/05/23 lidocaine 5 % topical patch 1 patch topical DAILY #15 ea 03/09/23 naproxen 500 mg tablet 500 mg PO BID PRN pain #20 tabs 03/09/23 linaclotide 290 mcg capsule 290 mcg PO DAILY #30 caps 04/23/23 (Linzess) [id number]-dqrpvhdjfixwr-fwmvqsee 1 cap PO Q8H PRN pain #10 caps 06/11/23 50 mg-300 mg-40 mg capsule (Fioricet) Allergies Allergy/AdvReac Type Severity Reaction Status Date / Time No Known Allergies Allergy Verified 07/24/23 14:22 Review of Systems Review of Systems: Yes all other systems are reviewed and are negative [facility] Past Medical History Attestation statement: The following information was validated with the patient. Medical History GERD (gastroesophageal reflux disease) Hypothyroid Hx of hepatitis C Migraines Anxiety Depression Asthma Hypertension Surgical History History of esophagogastroduodenoscopy (EGD) History of nasal surgery History of tubal ligation History of colonoscopy Family History Family History Father No problems noted. Mother HTN (hypertension) Social History Social History Household Members: None Are you a primary critical care technician to a significant other at home: No Do you presently have visiting nurse or other home services: No Alcohol intake: never Patient Tobacco Use Status: Never used Tobacco Advance Directives: Yes Advance Directives on File: Yes Advance Directives Date on File: 02/19/22 service: No Current occupational status: employed Physical Exam ED Vital Signs: Vital Signs - 24 hr 07/24/23 14:19 07/24/23 15:55 07/24/23 18:19 Temperature 98.2 F Pulse Rate 86 58 58 Respiratory Rate 18 16 18 Blood Pressure 184/94 H 184/98 H 158/73 H Pulse Oximetry 98 98 95 Oxygen Delivery Method Room Air Room Air Room Air 07/24/23 19:06 Temperature 97.9 F Pulse Rate 54 Respiratory Rate 16 Blood Pressure 145/81 H Pulse Oximetry 98 Oxygen Delivery Method Room Air BMI result Body Mass Index 24.0 The patient is afebrile, hypertensive. Const General: cooperative and comfortable Orientation/consciousness: oriented to person, oriented to place and oriented to time HENMT Head: Yes normal to inspection and Yes atraumatic Ears: hearing grossly normal bilaterally and TM's normal bilaterally Eyes General: appearance normal, both eyes and all related structures Pupils: Equal, round and reactive pupils present Neck Neck: Yes normal visual inspection and No tender Chest Chest palpation & inspection: normal inspection of the chest and normal palpation of entire chest wall Resp Effort & Inspection: normal respiratory effort and no respiratory distress Auscultation: clear to auscultation bilaterally Cardio Rate: regular rate Rhythm: regular rhythm Peripheral pulses: Peripheral pulses 2+ throughout GI Inspection: Yes normal to inspection and No distended Palpation (GI): Soft to palpation, not firm, nontender, no guarding and not rigid Auscultation: normal bowel sounds Neuro General: oriented to person, oriented to place, oriented to time, gait normal, moves all extremities, Normal light touch and pain sensation, no focal motor deficits and CN's II-XI intact bilaterally Cranial nerves: Yes Equal, round and reactive pupils present Course Course Course Narrative: This is a rapid medical exam: Additional HPI, ROS, PE not included below will be deferred to primary provider. Patient is a 57-year-old female with history of HTN, asthma, anxiety and depression, migraines, hypothyroid, GERD presenting to the emergency department with complaint of 5 days of headache and high blood pressure. Please see refered to the emergency department by the clinic for her blood pressures. Reports she is having ?shiny dots? in her vision since Thursday. Reports nausea but denies vomiting. Denies any chest pain or shortness of breath. Is taking her migraine medications (amytriptylline, magnesium, and propranolol) without relief of headache. Plan: EKG, labs Reevaluation(s) Reevaluation #1: Patient is afebrile and hypertensive. Patient last seen in this ED on 06/10/2023 for headache and hypertension. Reviewed triage EKG and labs - agree with work up. EKG NSR 55BPM without interval changes. Provided pain control with tylenol, toradol, reglan, benadryl, and 1L IVF. Reevaluation #2: Patient re-evaluated and reports headache has improved from 8/10 to 7/10. Given minimal improvement with headache medication, will obtain CT Head to r/o intracranial abnormalities. Of note on last chart review patient has had CT Head on 06/10/2023 which was unremarkable. Reevaluation #3: CT Head unremarkable. BP improved with improvement in RODAS - on discharge 145/81mmHg. Patient reports significant improvement in headache without further intervention. She is agreeable to discharge to home. Plan: Discharge to home with PCP follow up Return precautions given Recommended patient continue home migraine medications with PRN Tylenol and Ibuprofen Medications Administered Discontinued Medications Generic Name Dose Route Start Last Admin Trade Name Liseth PRN Reason Stop Dose Admin Acetaminophen 975 mg 07/24/23 17:03 07/24/23 17:29 Acetaminophen 325 Mg Tablet PO 07/24/23 17:04 975 mg ONCE ONE Administration Diphenhydramine HCl 50 mg 07/24/23 17:03 07/24/23 17:29 Diphenhydramine Hcl 50 Mg/Ml Vial IVPUSH 07/24/23 17:04 50 mg ONCE ONE Administration Sodium Chloride 1,000 mls @ 999 mls/hr 07/24/23 17:15 07/24/23 17:25 Ns IV 07/24/23 18:15 999 mls/hr .Q1H1M LAILA Administration Ketorolac Tromethamine 15 mg 07/24/23 17:03 07/24/23 17:29 Ketorolac Tromethamine 15 Mg/Ml Vial IVPUSH 07/24/23 17:04 15 mg ONCE ONE Administration Metoclopramide HCl 10 mg 07/24/23 17:03 07/24/23 17:29 Metoclopramide Hcl 10 Mg/2 Ml Vial IVPUSH 07/24/23 17:04 10 mg ONCE ONE Administration Medical Decision Making Lab Data 07/24/23 15:15 07/24/23 15:15 Labs: Lab Results 07/24/23 Range/Units 15:15 WBC 6.4 (4.8-10.8) X10*3/uL RBC 3.80 L (4.20-5.50) X10*6/uL Hgb 10.5 L (12.0-16.0) g/dl Hct 32.7 L (37.0-47.0) % MCV 86.1 (80.0-98.0) fL MCH 27.6 (27.0-33.0) pg MCHC 32.1 (31.0-35.0) g/dl RDW 15.4 (11.0-16.0) % Plt Count 226 (160-400) X10*3/uL MPV 10.8 (9.4-12.3) fL Immature Gran % (Auto) 0.2 (0.0-0.4) % Neut % (Auto) 48.2 (45-73) % Lymph % (Auto) 36.2 (20-40) % Mccracken % (Auto) 8.7 (2-11) % Eos % (Auto) 5.9 H (0-4) % Baso % (Auto) 0.8 (0-2) % Lymph # (Auto) 2.3 (1.2-4.9) X10*3/uL Mccracken # (Auto) 0.6 (0.1-1.2) X10*3/uL Eos # (Auto) 0.4 (0.0-0.4) X10*3/uL Baso # (Auto) 0.1 (0.0-0.2) X10*3/uL Abs Immat Gran (auto) 0.01 (0.00-0.03) X10*3/uL Absolute Neuts (auto) 3.1 (2.0-8.3) x10*3/uL Absolute Nucleated RBC 0.000 (0.0-0.012) X10*3/uL Nucleated RBC % (auto) 0.0 (0.0-0.2) /100WBC Sodium 139 (135-145) mmol/L Potassium 4.5 D (3.3-5.1) mmol/L Chloride 106 (96-108) mmol/L Carbon Dioxide 29 (22-29) mmol/L Anion Gap 9 L (12-20) BUN 11 (9-16) mg/dL Creatinine 0.83 (0.5-1.4) mg/dL Estim Creat Clear Calc 66.1 Estimated GFR > 60 Random Glucose 77 (60-115) mg/dL Calcium 9.5 (8.4-10.2) mg/dL Total Bilirubin 0.2 (0.0-1.0) mg/dL AST 23 (5-31) U/L ALT 14 (0-31) U/L Alkaline Phosphatase 118 H (39-117) U/L Total Protein 7.1 (6.5-8.0) g/dL Albumin 3.9 (3.5-5.0) g/dL Discharge Plan Discharge Clinical Impression: Migraine Patient Disposition: Home, Self-Care Instructions: Migraine Headache (ED) Additional Instructions: As we discussed, you were seen today for a migraine headache. You had a reassuring CT Head. You were treated with IVF, benadryl, reglan, tylenol, and toradol. Please follow up with your PCP within 2-3 days to discuss your recent ED visit. Return to the ED for worsening headache, visual changes, nausea/vomiting, passing out, numbness/tingling/weakness in your arms or legs. Shirley comentamos, hoy lo atendieron por nida migra?a. Tuviste un CT Head tranquilizador. Le trataron con FIV, benadryl, reglan, tylenol y toradol. Isacc un seguimiento con [facility] PCP dentro de 2 a 3 d?as para analizar edwards reciente visita al servicio de urgencias. Regrese al servicio de urgencias si el dolor de ginny empeora, cambios visuales, n?useas/v?mitos, desmayos, entumecimiento/hormigueo/debilidad en [place] o piernas. Prescriptions: No Action buspirone 5 mg tablet 5 mg PO BID Qty: 60 1RF lansoprazole 30 mg capsule,delayed release(DR/EC) 30 mg PO QAM Qty: 30 4RF Linzess 290 mcg capsule 290 mcg PO DAILY Qty: 30 3RF quetiapine [Seroquel] 100 mg Tablet 100 mg PO BEDTIME baclofen 10 mg Tablet 10 mg PO TID PRN (Reason: Muscle Spasm) hydrochlorothiazide 25 mg Tablet 25 mg PO DAILY zolpidem [Ambien] 10 mg Tablet 5 mg PO BEDTIME PRN (Reason: Sleep) loratadine 10 mg Tablet 10 mg PO DAILY quetiapine [Seroquel] 25 mg tablet 1 tab PO BID sumatriptan succinate 100 mg tablet 100 mg PO DAILY MRX1 PRN (Reason: headaches) atorvastatin 80 mg Tablet 80 mg PO BEDTIME albuterol sulfate 90 mcg/actuation Hfa Aerosol Inhaler 2 puff INHALATION QID PRN (Reason: Wheezing) Flovent HFA 110 mcg/actuation Hfa Aerosol Inhaler 2 puff INHALATION BID clonidine HCl 0.1 mg Tablet 0.1 mg PO BID Qty: 60 0RF Protocol: Hold for SBP< HOLD for SBP < : 90 lisinopril 20 mg tablet 10 mg PO DAILY Qty: 0 0RF naproxen 500 mg tablet 500 mg PO BID PRN (Reason: pain) 10 Days Qty: 20 0RF prednisone 20 mg tablet 40 mg PO DAILY 5 Days Qty: 10 0RF ibuprofen 600 mg tablet 600 mg PO TID PRN (Reason: pain) Qty: 20 0RF tramadol 50 mg tablet 50 mg PO BID PRN (Reason: pain) Qty: 10 0RF naproxen 500 mg tablet 500 mg PO BID PRN (Reason: pain) Qty: 20 0RF lidocaine 5 % adhesive patch,medicated 1 patch topical DAILY Qty: 15 0RF Rx Instructions: leave on most painful area for up to 12 hrs [id number] [Fioricet] 50-300-40 mg capsule 1 cap PO Q8H PRN (Reason: pain) Qty: 10 0RF cholecalciferol (vitamin D3) 50 mcg (2,000 unit) tablet 50 mcg PO DAILY Referrals: Kadi Tomlin MD [Primary Care Provider] -
--- NOTE | 2023-07-24 14:22 | ECG_ITS ---
Test Reason : RODAS/DIZZY Blood Pressure : / mmHG Vent. Rate : 055 BPM Atrial Rate : 055 BPM P-R Int : 160 ms QRS Dur : 082 ms QT Int : 448 ms P-R-T Axes : 056 030 027 degrees QTc Int : 428 ms Sinus bradycardia Otherwise normal ECG When compared with ECG of 10-JUN-2023 17:23, No significant change was found Referred By: Rosibel Blue Electronically Signed By:MAYI BRODERICK MD
[2023-07-24 15:24] LABS: MANUAL DIFF FLAG NO
[2023-07-24 15:48] LABS: Basophils Absolute Auto 0.1 X10*3/uL (0.0-0.2); Basophils Percent Auto 0.8 % (0-2); Eosinophils Absolute Auto 0.4 X10*3/uL (0.0-0.4); Eosinophils Percent Auto 5.9 % (0-4); Hematocrit 32.7 % (37.0-47.0); Hemoglobin 10.5 g/dl (12.0-16.0); Imm Gran Abs Auto 0.01 X10*3/uL (0.00-0.03); Imm Gran Pct Auto 0.2 % (0.0-0.4); Lymphocytes Absolute Auto 2.3 X10*3/uL (1.2-4.9); Lymphocytes Percent Auto 36.2 % (20-40); Mean Corpuscular HGB Conc 32.1 g/dl (31.0-35.0); Mean Corpuscular Hemoglobin 27.6 pg (27.0-33.0); Mean Corpuscular Volume 86.1 fL (80.0-98.0); Mean Platelet Volume 10.8 fL (9.4-12.3); Monocytes Absolute Auto 0.6 X10*3/uL (0.1-1.2); Monocytes Percent Auto 8.7 % (2-11); Neutrophils Absolute Auto 3.1 x10*3/uL (2.0-8.3); Neutrophils Percent Auto 48.2 % (45-73); Platelet Count 226 X10*3/uL (160-400); Red Cell Distribution Width 15.4 % (11.0-16.0); White Blood Count 6.4 X10*3/uL (4.8-10.8)
[2023-07-24 15:55] VITALS: BP 184/98; PULSE 58; RESP 16; O2SAT 98
[2023-07-24 16:16] LABS: Alanine Aminotransferase 14 U/L (0-31); Albumin Level 3.9 g/dL (3.5-5.0); Alkaline Phosphatase 118 U/L (39-117); Anion Gap 9 (12-20); Aspartate Amino Transferase 23 U/L (5-31); Bilirubin Total 0.2 mg/dL (0.0-1.0); Blood Urea Nitrogen 11 mg/dL (9-16); Calcium 9.5 mg/dL (8.4-10.2); Carbon Dioxide 29 mmol/L (22-29); Chloride 106 mmol/L (96-108); Creatinine Clr Calc Pharmacy 66.1; Estimated Glomerular Filt Rate > 60; Glucose Random 77 mg/dL (60-115); Potassium 4.5 mmol/L (3.3-5.1); Sodium 139 mmol/L (135-145); Total Protein 7.1 g/dL (6.5-8.0)
[2023-07-24] MEDS: 0.9 % Sodium Chloride 1,000 ML 999 ML IV (17:25)
[2023-07-24] MEDS: Acetaminophen 325 MG TABLET 975 MG PO (17:29)
[2023-07-24] MEDS: Metoclopramide HCl 10 MG/2 ML VIAL IVPUSH (17:29)
[2023-07-24] MEDS: diphenhydrAMINE HCL 50 MG/ML VIAL IVPUSH (17:29)
[2023-07-24] MEDS: Ketorolac Tromethamine 15 MG/ML VIAL IVPUSH (17:29)
--- NOTE | 2023-07-24 17:37 | PC.NURSE ---
patient resting quietly in room watching tv. medicated per the MAR, fluids infusing at this time. call gómez within reach
[2023-07-24 18:19] VITALS: BP 158/73; PULSE 58; RESP 18; O2SAT 95
[2023-07-24 19:06] VITALS: BP 145/81; PULSE 54; RESP 16; TEMP 36.6; O2SAT 98
== END 2023-07-24 20:51 | disposition home or self-care (01) ==
PROVIDERS: Registered Nurse Emergency; Emergency Provider Emergency Medicine; PCP General Practice
DX: G43.909 Migraine, unspecified, not intractable, without status migrainosus (principal); H53.8 Other visual disturbances; Z79.899 Other long term (current) drug therapy
CPT/HCPCS: 36415; 70450; 80053; 85025; 93005; 96374; 96375; 99284; 99285; J1200; J1885; J2765

== ENCOUNTER 2023-10-17 13:19 | Emergency (ER) | payer MEDICAID, SELFPAY ==
--- NOTE | ~2023-10-17 | XR_ITS ---
EXAMINATION: XR CHEST CLINICAL INFORMATION: Cough COMPARISON: 02/14/2021 TECHNIQUE: 2 views of the chest were obtained. FINDINGS: No significant abnormality is noted involving the heart, lungs, mediastinum, bony thorax or soft tissues. XR/XR chest 2V IMPRESSION: Unremarkable examination.
--- NOTE | 2023-10-17 13:21 | ECG_ITS ---
Test Reason : CHEST PAIN Blood Pressure : / mmHG Vent. Rate : 066 BPM Atrial Rate : 066 BPM P-R Int : 144 ms QRS Dur : 094 ms QT Int : 394 ms P-R-T Axes : 056 014 057 degrees QTc Int : 413 ms Normal sinus rhythm Incomplete right bundle branch block T wave abnormality, consider anterolateral ischemia Abnormal ECG When compared with ECG of 24-JUL-2023 15:02, T wave inversion now evident in Anterolateral leads Referred By: Yenifer Jauregui Electronically Signed By:Richy Juarez
--- NOTE | 2023-10-17 13:31 | ED_ITS ---
HPI - Chest Pain General Stated Complaint: headache/ chest pain Related Data Home Medications Medication Instructions Recorded Confirmed baclofen 10 mg tablet 10 mg PO TID PRN Muscle Spasm 09/05/20 02/13/22 hydrochlorothiazide 25 mg tablet 25 mg PO DAILY 09/05/20 02/13/22 loratadine 10 mg tablet 10 mg PO DAILY 09/05/20 02/13/22 quetiapine 100 mg tablet (Seroquel) 100 mg PO BEDTIME 09/05/20 02/13/22 zolpidem 10 mg tablet (Ambien) 5 mg PO BEDTIME PRN Sleep 09/05/20 02/13/22 cholecalciferol (vitamin D3) 50 50 mcg PO DAILY 08/27/21 02/13/22 mcg (2,000 unit) tablet albuterol sulfate 90 mcg/actuation 2 puff inhalation QID PRN Wheezing 02/13/22 02/13/22 aerosol inhaler atorvastatin 80 mg tablet 80 mg PO BEDTIME 02/13/22 02/13/22 fluticasone propionate 110 2 puff inhalation BID 02/13/22 02/13/22 mcg/actuation HFA aerosol inhaler (Flovent HFA) quetiapine 25 mg tablet (Seroquel) 1 tab PO BID 02/13/22 02/13/22 sumatriptan succinate 100 mg tablet 100 mg PO DAILY MRX1 PRN headaches 02/13/22 02/13/22 Previous Rx's Medication Instructions Recorded buspirone 5 mg tablet 5 mg PO BID #60 tabs 12/30/21 clonidine HCl 0.1 mg tablet 0.1 mg PO BID #60 tabs 02/15/22 lisinopril 20 mg tablet 10 mg (1/2 x 20 mg) PO DAILY #0 02/15/22 tabs naproxen 500 mg tablet 500 mg PO BID PRN pain 10 days #20 04/02/22 tabs prednisone 20 mg tablet 40 mg (2 x 20 mg) PO DAILY 5 days 04/02/22 #10 tabs ibuprofen 600 mg tablet 600 mg PO TID PRN pain #20 tabs 02/05/23 tramadol 50 mg tablet 50 mg PO BID PRN pain #10 tabs 02/05/23 lidocaine 5 % topical patch 1 patch topical DAILY #15 ea 03/09/23 naproxen 500 mg tablet 500 mg PO BID PRN pain #20 tabs 03/09/23 iesvaioxtc-vfqfmwwthwpea-mnytxjak 1 cap PO Q8H PRN pain #10 caps 06/11/23 50 mg-300 mg-40 mg capsule (Fioricet) lansoprazole 30 mg capsule,delayed 30 mg PO QAM #90 caps 10/07/23 release linaclotide 290 mcg capsule 290 mcg PO DAILY #30 caps 10/12/23 (Linzess) Allergies Allergy/AdvReac Type Severity Reaction Status Date / Time No Known Allergies Allergy Verified 10/17/23 13:33 [facility] Past Medical History Medical History GERD (gastroesophageal reflux disease) Hypothyroid Hx of hepatitis C Migraines Anxiety Depression Asthma Hypertension Surgical History History of esophagogastroduodenoscopy (EGD) History of nasal surgery History of tubal ligation History of colonoscopy Family History Family History Father No problems noted. Mother HTN (hypertension) Social History Social History Household Members: None Are you a primary cna caregiver to a significant other at home: No Do you presently have visiting nurse or other home services: No Alcohol intake: never Patient Tobacco Use Status: Never used Tobacco Advance Directives Date on File: 02/19/22 service: No Current occupational status: employed Course Course Course Narrative: RME:?58 yo [place] speaking female w/ hx of gastroparesis, HTN (lisinopril and HCTZ), anxiety, depression, asthma, hypothyroidism, GERD, migraines here for eval of headache, chills, N/V, and productive cough x4 days. report chest tightness on coughing. hx of asthma, has been using inhaler at home without relief. used this once this morning [employer]. no sick contacts. received flu shot this year. Denies fever, abdominal pain, diarrhea, chest pain, SOB. PE: lungs w/ bilateral ronchi and wheezes. actively coughing. flu, covid swabs and CXR ordered in triage Full HPI, ROS and PE to be performed by the primary ED provider. Discharge Plan Discharge Prescriptions: No Action buspirone 5 mg tablet 5 mg PO BID Qty: 60 1RF lansoprazole 30 mg capsule,delayed release(DR/EC) 30 mg PO QAM Qty: 90 3RF Linzess 290 mcg capsule 290 mcg PO DAILY Qty: 30 0RF quetiapine [Seroquel] 100 mg Tablet 100 mg PO BEDTIME baclofen 10 mg Tablet 10 mg PO TID PRN (Reason: Muscle Spasm) hydrochlorothiazide 25 mg Tablet 25 mg PO DAILY zolpidem [Ambien] 10 mg Tablet 5 mg PO BEDTIME PRN (Reason: Sleep) loratadine 10 mg Tablet 10 mg PO DAILY quetiapine [Seroquel] 25 mg tablet 1 tab PO BID sumatriptan succinate 100 mg tablet 100 mg PO DAILY MRX1 PRN (Reason: headaches) atorvastatin 80 mg Tablet 80 mg PO BEDTIME albuterol sulfate 90 mcg/actuation Hfa Aerosol Inhaler 2 puff INHALATION QID PRN (Reason: Wheezing) Flovent HFA 110 mcg/actuation Hfa Aerosol Inhaler 2 puff INHALATION BID clonidine HCl 0.1 mg Tablet 0.1 mg PO BID Qty: 60 0RF Protocol: Hold for SBP< HOLD for SBP < : 90 lisinopril 20 mg tablet 10 mg PO DAILY Qty: 0 0RF naproxen 500 mg tablet 500 mg PO BID PRN (Reason: pain) 10 Days Qty: 20 0RF prednisone 20 mg tablet 40 mg PO DAILY 5 Days Qty: 10 0RF ibuprofen 600 mg tablet 600 mg PO TID PRN (Reason: pain) Qty: 20 0RF tramadol 50 mg tablet 50 mg PO BID PRN (Reason: pain) Qty: 10 0RF naproxen 500 mg tablet 500 mg PO BID PRN (Reason: pain) Qty: 20 0RF lidocaine 5 % adhesive patch,medicated 1 patch topical DAILY Qty: 15 0RF Rx Instructions: leave on most painful area for up to 12 hrs dkhbahjkyk-bkaqlfhzqchge-rvbh [Fioricet] 50-300-40 mg capsule 1 cap PO Q8H PRN (Reason: pain) Qty: 10 0RF cholecalciferol (vitamin D3) 50 mcg (2,000 unit) tablet 50 mcg PO DAILY
[2023-10-17 13:33] VITALS: BP 112/74; PULSE 68; RESP 16; TEMP 37.3; O2SAT 99; BMI 3176.2
[2023-10-17 14:23] LABS: COVID-19 Test Negative (Negative); IDNOW Serial# 58CA691E; IDNOW Serial# 6674DD1D; Influenza A Positive (Negative)
[2023-10-17 14:24] LABS: Influenza B2 Negative (Negative)
[2023-10-17 16:12] VITALS: BP 115/69; PULSE 80; RESP 18; TEMP 36.1; O2SAT 98
--- NOTE | 2023-10-17 16:20 | ED.URI ---
HPI - URI/Sore Throat General Chief Complaint: Upper Respiratory Symptoms Stated Complaint: headache/ chest pain Time Seen by Provider: 10/17/23 16:18 Source: patient and mallet cutter Mode of arrival: ambulatory Limitations: no limitations History of Present Illness HPI Narrative: 58 year old Sinhala speaking female with pmhx significant for gastroparesis, HTN (lisinopril and HCTZ), anxiety, depression, asthma, hypothyroidism, GERD, migraines presenting to the ED today for evaluation of headache, chills, N/V, and productive cough x4 days. Cough is productive of yellow sputum. She report chest tightness on coughing, no chest pain or palpitations. Admits to a history of asthma. She has been using her inhaler at home without relief. She last used this DIRECTOR INPATIENT [employer]AC[employer] PROGRAM in ED today. Denies known sick contacts. She received her influenza vaccination this year. Denies fever, sore throat, abdominal pain, diarrhea. A electric locomotive crane operator was utilized during this visit to communicate with patient. Related Data Home Medications Medication Instructions Recorded Confirmed baclofen 10 mg tablet 10 mg PO TID PRN Muscle Spasm 09/05/20 02/13/22 hydrochlorothiazide 25 mg tablet 25 mg PO DAILY 09/05/20 02/13/22 loratadine 10 mg tablet 10 mg PO DAILY 09/05/20 02/13/22 quetiapine 100 mg tablet (Seroquel) 100 mg PO BEDTIME 09/05/20 02/13/22 zolpidem 10 mg tablet (Ambien) 5 mg PO BEDTIME PRN Sleep 09/05/20 02/13/22 cholecalciferol (vitamin D3) 50 50 mcg PO DAILY 08/27/21 02/13/22 mcg (2,000 unit) tablet albuterol sulfate 90 mcg/actuation 2 puff inhalation QID PRN Wheezing 02/13/22 02/13/22 aerosol inhaler atorvastatin 80 mg tablet 80 mg PO BEDTIME 02/13/22 02/13/22 fluticasone propionate 110 2 puff inhalation BID 02/13/22 02/13/22 mcg/actuation HFA aerosol inhaler (Flovent HFA) quetiapine 25 mg tablet (Seroquel) 1 tab PO BID 02/13/22 02/13/22 sumatriptan succinate 100 mg tablet 100 mg PO DAILY MRX1 PRN headaches 02/13/22 02/13/22 Previous Rx's Medication Instructions Recorded buspirone 5 mg tablet 5 mg PO BID #60 tabs 12/30/21 clonidine HCl 0.1 mg tablet 0.1 mg PO BID #60 tabs 02/15/22 lisinopril 20 mg tablet 10 mg (1/2 x 20 mg) PO DAILY #0 02/15/22 tabs naproxen 500 mg tablet 500 mg PO BID PRN pain 10 days #20 04/02/22 tabs prednisone 20 mg tablet 40 mg (2 x 20 mg) PO DAILY 5 days 04/02/22 #10 tabs ibuprofen 600 mg tablet 600 mg PO TID PRN pain #20 tabs 02/05/23 tramadol 50 mg tablet 50 mg PO BID PRN pain #10 tabs 02/05/23 lidocaine 5 % topical patch 1 patch topical DAILY #15 ea 03/09/23 naproxen 500 mg tablet 500 mg PO BID PRN pain #20 tabs 03/09/23 hspwdrhbvs-exuykkvwelwpm-jkwgoghl 1 cap PO Q8H PRN pain #10 caps 06/11/23 50 mg-300 mg-40 mg capsule (Fioricet) lansoprazole 30 mg capsule,delayed 30 mg PO QAM #90 caps 10/07/23 release linaclotide 290 mcg capsule 290 mcg PO DAILY #30 caps 10/12/23 (Linzess) benzonatate 100 mg capsule 100 mg PO BID PRN cough #20 caps 10/17/23 Allergies Allergy/AdvReac Type Severity Reaction Status Date / Time No Known Allergies Allergy Verified 10/17/23 13:33 Review of Systems Review of Systems: Constitutional: No fever, chills, fatigue, night sweats, weight changes ENT/Mouth: No ear pain, hearing loss, nasal congestion, sinus pain, rhinorrhea, sore throat Eyes: No eye pain, swelling, redness, vision changes, discharge Cardio: No chest pain, palpitations, OLIVIA, orthopnea, peripheral edema Pulm: No SOB, +cough, +sputum, No wheezing, dyspnea, hemoptysis GI: +nausea, +vomiting, no hematemesis, abdominal pain, diarrhea, constipation, hematochezia, melena : No irregular bleeding, dysuria, frequency, urgency, hesitancy, hematuria, flank pain, urinary flow changes, urinary incontinence or retention MSK: No back pain, neck pain, joint pain, myalgias Skin: No lesions, rashes Neuro: No weakness, numbness, paresthesias, LOC, dizziness, +headache All other systems reviewed and are negative. [facility] Past Medical History Attestation statement: The following information was validated with the patient. Source: old records reviewed and nursing notes reviewed Medical History GERD (gastroesophageal reflux disease) Hypothyroid Hx of hepatitis C Migraines Anxiety Depression Asthma Hypertension Surgical History History of esophagogastroduodenoscopy (EGD) History of nasal surgery History of tubal ligation History of colonoscopy Family History Family History Father No problems noted. Mother HTN (hypertension) Social History Social History Household Members: None Are you a primary healthcare risk control consultant to a significant other at home: No Do you presently have visiting nurse or other home services: No Alcohol intake: never Patient Tobacco Use Status: Never used Tobacco Smoked in Last 30 Days: No Advance Directives: Yes Advance Directives on File: Yes Advance Directives Date on File: 02/19/22 service: No Current occupational status: employed Physical Exam Vital Signs: Vital Signs: Last Vital Signs Temp 97.0 F 10/17/23 16:12 Pulse 68 10/17/23 16:37 Resp 22 H 10/17/23 16:37 BP 115/69 10/17/23 16:12 Pulse Ox 98 10/17/23 17:07 O2 Del Method Room Air 10/17/23 17:07 BMI result Body Mass Index 3176.2 Vital signs stable, afebrile Const: General: cooperative, healthy appearing, comfortable and no acute distress Nutritional Appearance: average body habitus Orientation/consciousness: patient oriented x3 Limitations: no limitations HEENT: Other: + posterior oropharynx without erythema or edema. Uvula midline. No tonsillar exudates. Controlling secretions and speaking in complete sentences. Ears: hearing grossly normal bilaterally, external ears normal, TM's normal bilaterally, EAC's normal, mastoids normal and no periauricular adenopathy Eyes: General: appearance normal, both eyes and all related structures Conjunctivae: conjunctivae normal Sclerae: sclerae normal Pupils: Equal, round and reactive pupils present Neck: Neck: Yes normal visual inspection and Yes no lymphadenopathy Resp: Other: + lungs with bilateral wheezes and rhonchi + actively coughing on exam Effort & Inspection: normal respiratory effort and able to speak in complete sentences Cardio: Jugular venous distension: no JVD Rate: regular rate Rhythm: regular rhythm GI: Other: + abdomen soft, nondistended, nontender, no rebound tenderness or guarding, normoactive bs x4 Inspection: Yes normal to inspection Skin: General skin exam: no rashes or lesions noted Neuro: General: patient oriented x3 Cranial nerves: Yes Equal, round and reactive pupils present Course Course Course Narrative: 1649-- On re-evaluation, patient states that her breathing has improved with albuterol treatment. I have re-examined her and her lungs are now CTA bilaterally, no wheezes or rhonchi. Patient has been informed of positive influenza results. CXR unremarkable, no signs of pneumonia. Educated patient on symptomatic treatment. No episodes of vomiting while in ED. Tolerating water and crackers. Will send Gutierrez Manzanares to pharmacy for cough. Discussed worrisome signs and symptoms of when to return to the ED. patient has remained stable throughout visit today. I feel comfortable discharging patient home. All questions answered at this time. Patient is agreeable with disposition and stable for discharge. Medications Administered Discontinued Medications Generic Name Dose Route Start Last Admin Trade Name Freq PRN Reason Stop Dose Admin Albuterol Sulfate 2.5 mg/ 5 mg 10/17/23 16:29 10/17/23 16:34 Albuterol Sulfate 2.5 mg INHALE 10/17/23 16:30 5 mg ONCE ONE Administration Medical Decision Making Medical Decision Making MDM Narrative: 58 year old Sinhala speaking female with pmhx significant for gastroparesis, HTN (lisinopril and HCTZ), anxiety, depression, asthma, hypothyroidism, GERD, migraines presenting to the ED today for evaluation of headache, chills, N/V, and productive cough x4 days. Vital signs stable. Patient nontoxic appearing and in no acute distress. Posterior oropharynx WNL. Bilateral EACs and TMs WNL. Lungs with bilateral expiratory wheezes and rhonchi. Abd soft ND/NT, normoactive bs x4. Clinical concern for viral syndrome, pneumonia, asthma, gastroenteritis. Low suspicion for pharyngitis, mono, appendicitis, cholecystitis, pancreatitis. Plan for flu swab, COVID swab, chest x-ray, ED brown protocol, re-evaluation. Differential Diagnosis Differential Diagnoses: The differential diagnosis associated with the presentation includes as above. Admission/Observation not indicated. Lab Data MDM Lab Attestation statement: I reviewed the patient's lab results. as above. Labs: Lab Results 10/17/23 Range/Units 14:03 COVID-19 (CHIOMA) Negative (Negative) COVID-19 Clin Com See Note Influenza Type A (ANJELICA) Positive A (Negative) Influenza Type B (ANJELICA) Negative (Negative) Influenza A & B Note See Note Independent Interpretation I performed an independent interpretation of an: Plain X-Ray Interpretation: I have personally reviewed patient's chest x-ray and agree with radiologist's interpretation. Radiology Impression Discussion of test interpretation with radiology: I have reviewed the radiologist's reading. Radiologist Impression: XR chest 2V IMPRESSION: Unremarkable examination. External Record Review External record reviewed: Inpatient record, Office record, Outpatient record, Prior outpatient labs, Prior outpatient radiology, Primary care record and Outside ED record Prescription Management I considered prescription management with: Pain Medication Chronic Conditions Patient?s care impacted by: Other (asthma, HTN) Discharge Plan Discharge Clinical Impression: Influenza A Patient Disposition: Home, Self-Care Instructions: Influenza (ED) Additional Instructions: You tested positive for influenza A today. You tested negative for COVID. Your chest x-ray was normal and does not demonstrate pneumonia. You received a breathing treatment in ED today with improvement. Treatment for influenza is symptomatic. It does not require treatment with antibiotics. Tessalon Perles have been sent to your pharmacy. Take these as prescribed for cough. Alter ibuprofen and Tylenol for fevers and body aches. You may continue to use your albuterol inhaler at home if you feel short of breath or wheezy. If you use your inhaler numerous times without relief, you need to return to the ED as this can cause an increase in your heart rate termed rebound tachycardia. Limit your contact with others as influenza is very contagious. Follow-up with your PCP. If symptoms persist or worsen please return to the emergency department. The case of an emergency call 911. North mora positivo por influenza A hoy. Tu prueba de COVID fue negativa. Chavez radiograf?a de t?rax fue normal y no demuestra neumon?a. Recibi? un tratamiento respiratorio en el servicio de urgencias hoy y mejor?. El tratamiento de la influenza es sintom?alden. No requiere tratamiento con antibi?ticos. Tessalon Perles esquivel sido enviados a chavez farmacia. T?melos seg?n lo recetado para la tos. Modifique el ibuprofeno y Tylenol para la fiebre y los martin corporales. Puede continuar usando chavez inhalador de albuterol en casa si siente dificultad para respirar o sibilancias. Si usa chavez inhalador varias veces sin alivio, debe regresar al servicio de urgencias, ya que esto puede causar un aumento en chavez frecuencia card?michelle, lo que se denomina taquicardia de rebote. Limite chavez contacto con otras personas ya que la influenza es muy contagiosa. Isacc un seguimiento con chavez PCP. Si los s?ntomas persisten o empeoran, regrese al departamento de emergencias. El ana de nida llamada de emergencia al 911. Prescriptions: New benzonatate 100 mg capsule 100 mg PO BID PRN (Reason: cough) Qty: 20 0RF No Action buspirone 5 mg tablet 5 mg PO BID Qty: 60 1RF lansoprazole 30 mg capsule,delayed release(DR/EC) 30 mg PO QAM Qty: 90 3RF Linzess 290 mcg capsule 290 mcg PO DAILY Qty: 30 0RF quetiapine [Seroquel] 100 mg Tablet 100 mg PO BEDTIME baclofen 10 mg Tablet 10 mg PO TID PRN (Reason: Muscle Spasm) hydrochlorothiazide 25 mg Tablet 25 mg PO DAILY zolpidem [Ambien] 10 mg Tablet 5 mg PO BEDTIME PRN (Reason: Sleep) loratadine 10 mg Tablet 10 mg PO DAILY quetiapine [Seroquel] 25 mg tablet 1 tab PO BID sumatriptan succinate 100 mg tablet 100 mg PO DAILY MRX1 PRN (Reason: headaches) atorvastatin 80 mg Tablet 80 mg PO BEDTIME albuterol sulfate 90 mcg/actuation Hfa Aerosol Inhaler 2 puff INHALATION QID PRN (Reason: Wheezing) Flovent HFA 110 mcg/actuation Hfa Aerosol Inhaler 2 puff INHALATION BID clonidine HCl 0.1 mg Tablet 0.1 mg PO BID Qty: 60 0RF Protocol: Hold for SBP< HOLD for SBP < : 90 lisinopril 20 mg tablet 10 mg PO DAILY Qty: 0 0RF naproxen 500 mg tablet 500 mg PO BID PRN (Reason: pain) 10 Days Qty: 20 0RF prednisone 20 mg tablet 40 mg PO DAILY 5 Days Qty: 10 0RF ibuprofen 600 mg tablet 600 mg PO TID PRN (Reason: pain) Qty: 20 0RF tramadol 50 mg tablet 50 mg PO BID PRN (Reason: pain) Qty: 10 0RF naproxen 500 mg tablet 500 mg PO BID PRN (Reason: pain) Qty: 20 0RF lidocaine 5 % adhesive patch,medicated 1 patch topical DAILY Qty: 15 0RF Rx Instructions: leave on most painful area for up to 12 hrs duqinqzvug-bxrbhndbdmtgn-yjlj [Fioricet] 50-300-40 mg capsule 1 cap PO Q8H PRN (Reason: pain) Qty: 10 0RF cholecalciferol (vitamin D3) 50 mcg (2,000 unit) tablet 50 mcg PO DAILY Referrals: Kadi Tomlin MD [Primary Care Provider] - Interventions: ED Discharge Assessment Last Done: 10/17/23 17:06 Discharge Date/Time: 10/17/23 17:07 Print Language: Sinhala
[2023-10-17] MEDS: Albuterol Sulfate 2.5 MG, Albuterol Sulfate (0.083%) 2.5 MG 5 MG INHALE (16:34)
[2023-10-17 16:37] VITALS: PULSE 68; RESP 22; O2SAT 96
[2023-10-17 17:07] VITALS: O2SAT 98
== END 2023-10-17 17:07 | disposition home or self-care (01) ==
PROVIDERS: Physician Assistant Medical; Emergency Provider Emergency Medicine; PCP General Practice
DX: J10.1 Influenza due to other identified influenza virus with other respiratory manifestations (principal); Z11.52 Encounter for screening for COVID-19; R05.9 Cough, unspecified
CPT/HCPCS: 71046; 87502; 87635; 93005; 94640; 99284

== ENCOUNTER → 2023-10-17 13:21 | Outpatient (BNV) | payer MEDICAID, SELFPAY | PROVIDERS: Emergency Provider Emergency Medicine; PCP General Practice; Visit Provider Internal Medicine Cardiovascular Disease | DX: R07.9 Chest pain, unspecified (principal) | CPT/HCPCS: 93010 ==

== ENCOUNTER 2023-11-27 10:42 | Outpatient (AMB) | payer MEDICAID, SELFPAY ==
--- NOTE | 2023-11-27 10:47 | MHC.OFFVIS ---
Intake Vital Signs 11/27/23 10:49 Height 5 ft 4 in Weight 189 lb 9.561 oz BMI 32.5 BP 124/76 Blood Pressure Location Lt brachial Position Sitting Pulse 55 Intake Visit Reasons: Follow up Intake Note: Danika presents in the office as a follow up. CC: States that she has constipation and acid reflux. 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 KUB revealed stool in the colon, distended loops of proximal colon to the splenic flexure. There is paucity of bowel gas seen distal to this region and large-bowel obstruction could not be excluded. Appearance is similar to the CT scan of July 2011. She then called the office for urgent added on as she has still been unable to use the bathroom by 10/10/2019 even after Fleet enemas were ordered patient reports only moving her bowels this size of a quarter size amounts. Patient was then again sent for a x-ray upright of the abdomen/chest X-ray of the upper abdomen and chest revealed nml chest, moderate stool burden in abdomen She was then sent over MiraLax prep and magnesium citrate and she reports that she moved her bowels after this. she had c/o a lot of time trying to push to produce a bowel movement she feels she doesn't fully evacuate she was referred to [facility] for [facility] Patient underwent a colonoscopy on 09/[address] Adams. The colonoscopy revealed and long and tortuous colon with occasional spasms during procedure. The prep was found to be excellent. No polyps removed. Needs repeat in 5 yrs due to family h/o colon cancer omeprazole was increased to 40 mg bid due to epigastric pain and discomfort she was given trial of motegrity, but felt no help, she was taking castor oil with good results, advised to replace castor oil with prune juice, due to risks of oil on GI tract PPI was helping her reflux and abdo pain she has dysphagia to solids and liquids, going on for 1 month also like a ball sensation in epigastrium so EGD done 08/11 as below motegrity didn;t help her sx and may her feel sick GES pos 07/2020-- 21 % retained at 4 hrs EGD was done 08/2020 w/ small hiatal hernia, bx with moderate gastritis, no h pylori noted EGD 08/11-- botox and pyloric dilation done INTERIM: she has been noting worsening reflux and difficulty swallowing with both she drinks a lot of water to help she is still taking lansoprazole, she feels not always helpful she has notefd worsening constipation she has nausea, and some emesis she has noted worsening constipation, she takes MOM and lianclotide and variable response EXAM: GENERAL: The patient is well developed and nontoxic. VITAL SIGNS:see workflow HEENT: Nonicteric sclerae, PERRLA, EOMI. Oropharynx clear. Moist mucous membranes. Conjunctivae appear well perfused. No thyroid mass. CHEST: Chest wall is nontender. HEART: Regular rate and rhythm without murmurs. LUNGS: Clear to auscultation bilaterally. ABDOMEN: Soft, positive bowel sounds, tender epigastrium, no organomegaly.no flank tenderness SKIN: No rash, no excessive bruising, petechiae, or purpura. NEUROLOGIC: Cranial nerves II-XII intact without motor/sensory deficit. Assessment & Plan (1) Early satiety, gastroparesis, 2/ constipation may have global GI dysmotility, ?dysautonomia--due repeat colonoscopy now--may have tachyphylaxis to PPI and linszess PLAN: 1/ change PPI to nexium 2/ change to trulance 3/ just started meloxicam for shoulder pain, might change to celebrex 4/ EGD and dilation 5/ colonoscopy due to FH of crc, suprep and zofran [facility] Medical History GERD (gastroesophageal reflux disease) Hypothyroid Hx of hepatitis C Migraines Anxiety Depression Asthma Hypertension Surgical History History of esophagogastroduodenoscopy (EGD) History of nasal surgery History of tubal ligation History of colonoscopy Family History Father No problems noted. Mother HTN (hypertension) Social History Household Members: None Are you a primary assurance services manager health care to a significant other at home: No Do you presently have visiting nurse or other home services: No Alcohol intake: never Patient Tobacco Use Status: Never used Tobacco Advance Directives Date on File: 02/19/22 service: No Current occupational status: employed Physical Exam Vital Signs: Last Vital Signs Pulse 55 11/27/23 10:49 BP 124/76 11/27/23 10:49 BMI result Body Mass Index 32.5 Assessment & Plan Assessment & Plan (1) Early satiety: Code(s): R68.81 - Early satiety Plan: Assessment & Plan (1) Early satiety, gastroparesis, 2/ constipation may have global GI dysmotility, ?dysautonomia--due repeat colonoscopy now--may have tachyphylaxis to PPI and linszess PLAN: 1/ change PPI to nexium 2/ change to trulance 3/ just started meloxicam for shoulder pain, might change to celebrex 4/ EGD and dilation 5/ colonoscopy due to FH of crc, suprep and zofran (2) Colon cancer screening: Code(s): Z12.11 - Encounter for screening for malignant neoplasm of colon Plan: Assessment & Plan (1) Early satiety, gastroparesis, 2/ constipation may have global GI dysmotility, ?dysautonomia--due repeat colonoscopy now--may have tachyphylaxis to PPI and linszess PLAN: 1/ change PPI to nexium 2/ change to trulance 3/ just started meloxicam for shoulder pain, might change to celebrex 4/ EGD and dilation 5/ colonoscopy due to FH of crc, suprep and zofran Medications: New esomeprazole magnesium 40 mg PO DAILY 90 caps 1RF plecanatide (Trulance) 3 mg PO DAILY 30 tabs 2RF sodium,potassium,mag sulfates 17.5-3.13-1.6 gram (Suprep Bowel Prep Kit) DILUTE; drink 1/2 at 6-8 pm and half at 11 PM- 1AM 354 mL 0RF ondansetron 4 mg PO Q8H PRN 20 tabs 0RF nausea and vomiting Discontinued naproxen Discontinued Reason: Doctor's Order 500 mg PO BID 10 days PRN 20 tabs 0RF pain prednisone Discontinued Reason: Doctor's Order 40 mg (2 x 20 mg) PO DAILY 5 days 10 tabs 0RF naproxen Discontinued Reason: Doctor's Order 500 mg PO BID PRN 20 tabs 0RF pain tramadol Discontinued Reason: Patient Completed Course 50 mg PO BID PRN 10 tabs 0RF pain Coding Level of Care Code Est Pt Level 4 (70092) Diagnoses Early satiety R68.81 Colon cancer screening Z12.11
[2023-11-27 10:49] VITALS: BP 124/76; PULSE 55; BMI 32.5
== END 2023-11-27 11:43 | disposition home or self-care (01) ==
PROVIDERS: PCP General Practice; Referring Provider General Practice; Visit Provider Internal Medicine Gastroenterology
DX: R68.81 Early satiety (principal); Z12.11 Encounter for screening for malignant neoplasm of colon
CPT/HCPCS: 99214

== ENCOUNTER → 2023-11-27 10:42 | Outpatient (BNVA) | payer MEDICAID, SELFPAY | PROVIDERS: PCP General Practice; Visit Provider Internal Medicine Gastroenterology | DX: Z12.11 Encounter for screening for malignant neoplasm of colon (principal); R68.81 Early satiety | CPT/HCPCS: 99212 ==

== ENCOUNTER 2024-06-09 08:44 | Day surgery (SDC) | payer MEDICAID, SELFPAY ==
[2024-06-07 12:05] VITALS: BMI 32.6
--- NOTE | 2024-06-08 10:15 | HO.ANESPROP2 ---
Documented by User: Dione Davey NP 06/08/24 10:16 HPI - Anesthesia Eval Consult details Narrative: 58yo F for Colonoscopy, Upper Endoscopy with Balloon Dilitation PMFSH Active Problems Active Problems: All Active Problems Colon cancer screening (Acute) Osteoarthritis of left shoulder (Acute) Painful arc syndrome of right shoulder (Acute) Internal derangement of left knee (Acute) Gastroparesis (Acute) Early satiety (Acute) Past Medical History Medical History (Updated 06/07/24 @ 11:59 by Ruby Posey RN) Osteoarthritis GERD (gastroesophageal reflux disease) Hypothyroid Hx of hepatitis C Migraines Anxiety Depression Asthma Hypertension Family History Family History Father No problems noted. Mother HTN (hypertension) Surgical History Surgical History (Updated 06/07/24 @ 12:01 by Ruby Posey RN) History of esophagogastroduodenoscopy (EGD) History of nasal surgery History of tubal ligation History of colonoscopy Social History Social History Household Members: None Are you a primary child care attendant to a significant other at home: No Do you presently have visiting nurse or other home services: No Alcohol intake: never Patient Tobacco Use Status: Never used Tobacco Advance Directives: No Advance Directives Information Provided: Yes Advance Directives Date on File: 02/19/22 service: No Current occupational status: employed Meds Allergies Allergy/AdvReac Type Severity Reaction Status Date / Time No Known Allergies Allergy Verified 10/17/23 13:33 Home Medications ?Medication ?Instructions ?Recorded ?Confirmed ?Last Taken ?Type baclofen 10 mg tablet 10 mg PO TID PRN Muscle Spasm 09/05/20 06/07/24 02/13/22 History hydrochlorothiazide 25 mg tablet 25 mg PO DAILY 09/05/20 06/07/24 02/13/22 History loratadine 10 mg tablet 10 mg PO DAILY 09/05/20 06/07/24 02/13/22 History quetiapine 100 mg tablet (Seroquel) 100 mg PO BEDTIME 09/05/20 06/07/24 02/12/22 History cholecalciferol (vitamin D3) 50 50 mcg PO DAILY 08/27/21 06/07/24 02/13/22 History mcg (2,000 unit) tablet albuterol sulfate 90 mcg/actuation 2 puff inhalation QID PRN Wheezing 02/13/22 06/07/24 Unknown History aerosol inhaler atorvastatin 80 mg tablet 80 mg PO BEDTIME 02/13/22 06/07/24 02/12/22 History fluticasone propionate 110 2 puff inhalation BID 02/13/22 06/07/24 02/13/22 History mcg/actuation HFA aerosol inhaler (Flovent HFA) sumatriptan succinate 100 mg tablet 100 mg PO DAILY MRX1 PRN headaches 02/13/22 06/07/24 Unknown History amitriptyline 25 mg tablet 25 mg PO BEDTIME 11/27/23 06/07/24 Unknown History dgfiyzstsa-uyvjhutmirmzk-wunirrns 1 tab PO DAILY PRN migraine 11/27/23 06/07/24 Unknown History 50 mg-325 mg-40 mg tablet escitalopram oxalate 10 mg tablet 10 mg PO QAM 11/27/23 06/07/24 Unknown History inhalational spacing device #1 ea 11/27/23 Unknown History (Compact Space Chamber) lisinopril 40 mg tablet 40 mg PO QAM 11/27/23 06/07/24 Unknown History meloxicam 7.5 mg tablet 7.5 mg PO QAM 11/27/23 06/07/24 Unknown History nifedipine 30 mg tablet,extended 30 mg PO QAM 11/27/23 06/07/24 Unknown History release 24 hr propranolol 40 mg tablet 40 mg PO BID 11/27/23 06/07/24 Unknown History quetiapine 50 mg tablet 50 mg PO BID 11/27/23 06/07/24 Unknown History zolpidem 5 mg tablet 5 mg PO BEDTIME insomnia 11/27/23 06/07/24 Unknown History Exam Height,Weight and Vital Signs: Height 5 ft 4 in Weight 86.183 kg Assessment and Plan Assessment Anesthesia Assessment: Chart Reviewed Documented by User: Radha Bradley MD 06/09/24 11:08 [facility] Past Medical History Medical History (Updated 06/07/24 @ 11:59 by Ruby Posey RN) Osteoarthritis GERD (gastroesophageal reflux disease) Hypothyroid Hx of hepatitis C Migraines Anxiety Depression Asthma Hypertension Family History Family History Father No problems noted. Mother HTN (hypertension) Family history of problems with anesthesia: No Surgical History Surgical History (Updated 06/07/24 @ 12:01 by Ruby Posey RN) History of esophagogastroduodenoscopy (EGD) History of nasal surgery History of tubal ligation History of colonoscopy History of Problems with Anesthesia: No Social History Social History Household Members: None Are you a primary child care attendant to a significant other at home: No Do you presently have visiting nurse or other home services: No Alcohol intake: never Patient Tobacco Use Status: Never used Tobacco Advance Directives: No Advance Directives Information Provided: Yes Advance Directives Date on File: 02/19/22 service: No Current occupational status: employed Meds Allergies Allergy/AdvReac Type Severity Reaction Status Date / Time No Known Allergies Allergy Verified 10/17/23 13:33 Home Medications ?Medication ?Instructions ?Recorded ?Confirmed ?Last Taken ?Type baclofen 10 mg tablet 10 mg PO TID PRN Muscle Spasm 09/05/20 06/07/24 02/13/22 History hydrochlorothiazide 25 mg tablet 25 mg PO DAILY 09/05/20 06/07/24 02/13/22 History loratadine 10 mg tablet 10 mg PO DAILY 09/05/20 06/07/24 02/13/22 History quetiapine 100 mg tablet (Seroquel) 100 mg PO BEDTIME 09/05/20 06/07/24 02/12/22 History cholecalciferol (vitamin D3) 50 50 mcg PO DAILY 08/27/21 06/07/24 02/13/22 History mcg (2,000 unit) tablet albuterol sulfate 90 mcg/actuation 2 puff inhalation QID PRN Wheezing 02/13/22 06/07/24 Unknown History aerosol inhaler atorvastatin 80 mg tablet 80 mg PO BEDTIME 02/13/22 06/07/2402/12/22 History fluticasone propionate 110 2 puff inhalation BID 02/13/22 06/07/24 02/13/22 History mcg/actuation HFA aerosol inhaler (Flovent HFA) sumatriptan succinate 100 mg tablet 100 mg PO DAILY MRX1 PRN headaches 02/13/22 06/07/24 Unknown History amitriptyline 25 mg tablet 25 mg PO BEDTIME 11/27/23 06/07/24 Unknown History dvstvrkcuo-jnpzbynkdnpzr-exxzzsgw 1 tab PO DAILY PRN migraine 11/27/23 06/07/24 Unknown History 50 mg-325 mg-40 mg tablet escitalopram oxalate 10 mg tablet 10 mg PO QAM 11/27/23 06/07/24 Unknown History inhalational spacing device #1 ea 11/27/23 Unknown History (Compact Space Chamber) lisinopril 40 mg tablet 40 mg PO QAM 11/27/23 06/07/24 Unknown History meloxicam 7.5 mg tablet 7.5 mg PO QAM 11/27/23 06/07/24 Unknown History nifedipine 30 mg tablet,extended 30 mg PO QAM 11/27/23 06/07/24 Unknown History release 24 hr propranolol 40 mg tablet 40 mg PO BID 11/27/23 06/07/24 Unknown History quetiapine 50 mg tablet 50 mg PO BID 11/27/23 06/07/24 Unknown History zolpidem 5 mg tablet 5 mg PO BEDTIME insomnia 11/27/23 06/07/24 Unknown History Exam Airway Mallampati Class: II TM Dist: >3cm Neck ROM: Full Heart: rrr Lungs: cta Assessment and Plan Assessment Anesthesia Assessment: Anesthesia Plan Discussed Final Anesthetic Review Family History of Problems with Anesthesia: No History of Problems with Anesthesia: No NPO: Yes ASA Class: II Final Preanesthetic Review: No Changes in Pt Med Stat, Meds/Allgs Chart Reviewed and Consent Obtained/Reviewed Patient Risk: Low Procedure Risk: Intermediate Anesthetic Plan Anesthetic Plan: MAC: Disposition: Standard PACU
--- NOTE | 2024-06-09 09:46 | MHC.SHP ---
Pre-Procedural Eval Section A - 24 Hr Update-Section A only Date of Service: 06/09/24 Section B - Complete if H&P > 30 days Chief Complaint: screening,Early satiety Relevant Family History (Specify if Yes): No Relevant Social History: None Present Medications: see Short Stay Collaborative assessment Medical History: Significant History (GERD (gastroesophageal reflux disease) Hypothyroid Hx of hepatitis C Migraines Anxiety Depression Asthma Hypertension) History of Previous Operations: Relevant previous surgery/procedure and date(s) (History of esophagogastroduodenoscopy (EGD) History of nasal surgery History of tubal ligation History of colonoscopy) Allergies: Allergies Allergy/AdvReac Type Severity Reaction Status Date / Time No Known Allergies Allergy Verified 10/17/23 13:33 Review of Systems Sugical H&P ROS: Negative: Constitution, Cardiovascular, Respiratory, Neurological, Psychiatric, Hem-Onc, Allergic/Immunologic, Gastrointestinal, Genitourinary, Musculoskeletal, Integumentary, Endocrine and Eyes/Ears/Nose/Throat Exam Surgical H&P Exam: Normal: HEENT, Normal: Heart, Normal: Lungs, Normal: Extremities, Normal: Abdomen, Normal: Skin and Normal: Neurological Plan Diagnosis/Plan: Unchanged I have reviewed the history and physical and performed a pertinent physical examination on my patient. No changes have occurred unless specified. Time Spent With Patient Time: Total time managing care of this patient today ____ minutes.
[2024-06-09] MEDS: Lactated Ringers 1,000 ML 100 ML IVCONT (11:13)
[2024-06-09 11:24] VITALS: BP 145/77; PULSE 58; RESP 18; TEMP 36.7; O2SAT 99
[2024-06-09 11:26] VITALS: BMI 32.4
--- NOTE | 2024-06-09 11:33 | PC.NURSE ---
patient had drank 1/2 bottle franky jinny upon her original arrival time. Dr. Bradley stated patient had to wait 2 hours for procedure. Patient waited in waiting room was brought in at 2 hour time.
--- NOTE | 2024-06-09 11:48 | P.OP_ITS ---
Operative Note Operative Note Date of Service: 06/09/24 Narrative: Operative Information Procedure Description: EGD, Colonoscopy Indication: dysphagia, colon screening Anesthesia: MAC FLEXIBLE TRANSORAL UPPER GASTROINTESTINAL ENDOSCOPY AND COLONOSCOPY PROCEDURE NOTE UPPER ENDOSCOPY Consent: Indications for the procedure and potential complications of bleeding, perforation, reaction to medications and missed diagnosis were discussed with the patient and informed consent was obtained. Instrument: Olympus GIF H 190 J mid size upper endoscope Monitoring: Vital signs and clinical assessment, continuous EKG monitoring, Pulse oximetry, Carbon Dioxide monitoring and blood pressure monitoring were done throughout the procedure. Procedure: The patient was placed in the left lateral decubitis position and pre-procedure medications were administered and a bite block was placed. The endoscope was inserted into the mouth and advanced under direct vision to the third part of duodenum. A careful inspection was made as the upper endoscope was withdrawn including a retroflexed examination of the proximal stomach; Findings and interventions are described below. Findings: Larynx:normal Esophagus: GE junction at 35 cm, diaphragm hiatus at 37 cm, consistent with 2 cm sliding hiatal hernia, irregular Z line, bx taken from GEJ, distal and proximal esophagus, balloon dilation to 20 mm at LES and 19 mm at UES Stomach: Patchy erythema. Biopsies were obtained. Grade 2 flap valve on retroflexed examination of the cardia. Duodenum: Normal bulb and descending duodenum, bx taken Intervention: Biopsies as noted above, COLONOSCOPY Instrument: Olympus variable stiffness pediatric scope 190L Colonoscopy Monitoring: Vital signs and clinical assessment, continuous EKG monitoring, Pulse oximetry, Carbon Dioxide monitoring and blood pressure monitoring were done throughout the procedure. Colon withdrawal time was 20 minutes. Procedure: The patient was placed in the left lateral decubitis position and pre-procedure medications were administered. After a digital rectal examination of the ano-rectum, the video colonoscope was inserted into the rectum and advanced through the colon to the cecum/TI. The colonoscope was slowly withdrawn in a retrograde panoramic fashion and the colon mucosa was carefully examined including a retroflexed view of the rectum. Findings and interventions are described below. Procedure Difficulty:moderate--left side pulled back Findings: Terminal Ileum-normal Cecum:normal Ascending Colon: normal Transverse Colon -normal Descending Colon:normal Sigmoid Colon: normal Rectum: Retroflexion with small internal hemorrhoids, grade I Anorectum - normal Colon preparation: Philadelphia Bowel Preparation Scale Right colon; 1-2 Transverse colon: 2 Left colon; 1-2 (0 = Unprepared colon segment with mucosa not seen due to solid stool that cannot be cleared. 1 = Portion of mucosa of the colon segment seen, but other areas of the colon segment not well seen due to staining, residual stool and/or opaque liquid. 2 = Minor amount of residual staining, small fragments of stool and/or opaque liquid, but mucosa of colon segment seen well. 3 = Entire mucosa of colon segment seen well with no residual staining, small fragments of stool or opaque liquid) Impression and Post Procedure Diagnosis: Endoscopy Findings: gastritis hiatal hernia Colonoscopy Findings: internal hemorrhoids Plan: Await Pathology results Repeat Colonoscopy in 6-12 months due to areas of fair prep or earlier if clinically indicated High fiber diet leaflet avoid straining at stool, epsom salts and sitz bath, anusol supps or cream GERD precautions Above findings were reviewed with the patient and relevant handouts were provided if indicated.
[2024-06-09 12:22] VITALS: BP 105/71; PULSE 74; RESP 16; TEMP 36.5; O2SAT 95
[2024-06-09 12:37] VITALS: BP 121/82; PULSE 73; RESP 18; O2SAT 97
[2024-06-09 12:52] VITALS: BP 129/81; PULSE 71; RESP 18; TEMP 36.4; O2SAT 96
== END 2024-06-09 13:56 | disposition home or self-care (01) ==
PROVIDERS: PCP General Practice; Visit Provider Internal Medicine Gastroenterology
PROC: 0DJD8ZZ Inspection of Lower Intestinal Tract, Via Natural or Artificial Opening Endoscopic (ICD-10-PCS; CPT 45378; principal; 2024-06-09 10:20)
PROC: (CPT 43249; 2024-06-09 10:20)
DX: K44.9 Diaphragmatic hernia without obstruction or gangrene (principal); K22.9 Disease of esophagus, unspecified; Z12.11 Encounter for screening for malignant neoplasm of colon; K64.0 First degree hemorrhoids; Z80.0 Family history of malignant neoplasm of digestive organs; R13.10 Dysphagia, unspecified; I10 Essential (primary) hypertension
CPT/HCPCS: 43249; 43239; 45378; 88305; 88313; 88342; C1726; J1100; J1596; J2250; J2704

== ENCOUNTER → 2024-06-09 08:44 | Outpatient (BNV) | payer MEDICAID, SELFPAY | PROVIDERS: PCP General Practice; Visit Provider Internal Medicine Gastroenterology | DX: Z12.11 Encounter for screening for malignant neoplasm of colon (principal); K64.0 First degree hemorrhoids; Z91.199 Patient's noncompliance with other medical treatment and regimen due to unspecified reason; R13.10 Dysphagia, unspecified; K29.70 Gastritis, unspecified, without bleeding | CPT/HCPCS: 43239; 45378 ==

== ENCOUNTER 2024-07-18 | Outpatient (REF) | payer MEDICAID, SELFPAY ==
--- NOTE | ~2024-07-18 | XR_ITS ---
EXAMINATION: XR SHOULDER, RIGHT CLINICAL INFORMATION: Atraumatic anterior shoulder pain, patient states pain for 2 weeks, denies injury. COMPARISON: 07/27/2017 TECHNIQUE: Three views of the right shoulder. FINDINGS: Moderate degenerative changes in the acromioclavicular joint. Glenohumeral alignment preserved. Mild degenerative changes in the glenohumeral joint. XR/XR shoulder RT min 2V IMPRESSION: Moderate degenerative changes in the acromioclavicular joint. This study was presented today July 19, 2024 for interpretation. Stat results provided at this time as requested by referring provider. Electronically signed by: Erika Gomez MD 07/19/2024 06:58 AM EDT RP
== END 2024-07-18 00:01 ==
LOC: HO.HHCX
PROVIDERS: PCP General Practice; Visit Provider Emergency Medicine
DX: M25.511 Pain in right shoulder (principal)
CPT/HCPCS: 73030

== ENCOUNTER 2024-08-23 15:17 | Outpatient (AMB) | payer MEDICAID, SELFPAY ==
--- NOTE | 2024-08-23 15:19 | A.OFFVIS_ITS ---
Vital Signs 08/23/24 15:22 Height 5 ft 4 in Weight 189 lb BMI 32.4 Intake Visit Reasons: New problem - right shoulder pain Intake Note: Danika is a 58 year old right hand dominant female who presents today for an evaluation of her right shoulder pain. Patient reports ongoing pain that has been present for months. Patient mentions that her pain is worse with getting dressed. Her pain radiates from her shoulder down her arm. Limited ROM. Denies numbness or tingling. No injury. No previous tx. Finds no relief with Tylenol arthritis. Echo Technician Name: Tiana ID#[id number] Allergies No Known Allergies Allergy (Verified 08/23/24 15:25) HPI HPI New problem - right shoulder pain: Details: 58-year-old right-hand dominant female, who is Japanese speaking, presents in the office today for an evaluation of right shoulder pain. The patient presented to the [facility] for atraumatic right anterior shoulder pain and limited ROM in the right shoulder on 07/13/24. The patient woke up with right neck and right shoulder pain on 07/08/24. Pain is worse with moving and lifting her right upper extremity. She is able to move her neck with mild pain. She has tried Tylenol and lidocaine patches with no benefit. Her PCP prescribed her Baclofen in June for bilateral neck pain with mild relief. She was given a Toradol injection 30 mg IM and prescribed ibuprofen 400 mg PO Q6H PRN and topical 1% diclofenac sodium gel thrice a day for pain relief. X-rays of the right shoulder were ordered. While in the office today, the patient reports right shoulder pain ongoing for months. She mentions radiating pain from her right shoulder down to her arm and limited range of motion in the right shoulder. She also reports worsening pain while getting dressed. She denies numbness or tingling. No history of injury. She has tried Tylenol arthritis with no relief. She has not tried any previous treatment. [facility]LY [facility] Medical History (Updated 08/23/24 @ 15:48 by Cheri Cee PA-C) Osteoarthritis GERD (gastroesophageal reflux disease) Hypothyroid Hx of hepatitis C Migraines Anxiety Depression Asthma Hypertension Surgical History History of esophagogastroduodenoscopy (EGD) History of nasal surgery History of tubal ligation History of colonoscopy Family History Father No problems noted. Mother HTN (hypertension) Social History Household Members: None Are you a primary customer care consultant to a significant other at home: No Do you presently have visiting nurse or other home services: No Alcohol intake: never Patient Tobacco Use Status: Never used Tobacco Advance Directives Date on File: 02/19/22 service: No Current occupational status: employed Review of Systems Const All systems reviewed & are unremarkable except as noted in HPI and below Physical Exam Vital Signs: BMI result Body Mass Index 32.4 Const General: cooperative, healthy appearing and no acute distress Resp Effort & Inspection: normal respiratory effort and able to speak in complete sentences Cardio Rate: regular rate Peripheral pulses: Peripheral pulses 2+ throughout GI Palpation (GI): Soft to palpation Skin Lesions: no lesions Rashes: no rashes Extrem Other: Right shoulder: Normal to inspection. No ecchymosis, erythema, or edema. Range of motion to 90 degrees of forward flexion and abduction. External rotation to neutral. Pain with cross body reach. 3/5 strength with an empty can. Radiating pain with neck rotation from right to left. Assessment & Plan Assessment & Plan (1) Cervical radiculopathy: Code(s): M54.12 - Radiculopathy, cervical region Category: Medical Plan Ms. Morales is a 58-year-old right-hand dominant female, who is Japanese speaking, presents in the office today for an evaluation of right shoulder pain. The patient presented to the [facility] for atraumatic right anterior shoulder pain and limited ROM in the right shoulder on 07/13/24. The patient woke up with right neck and right shoulder pain on 07/08/24. Pain is worse with moving and lifting her right upper extremity. She is able to move her neck with mild pain. She has tried Tylenol and lidocaine patches with no benefit. Her PCP prescribed her Baclofen in June for bilateral neck pain with mild relief. She was given a Toradol injection 30 mg IM and prescribed ibuprofen 400 mg PO Q6H PRN and topical 1% diclofenac sodium gel thrice a day for pain relief. X-rays of the right shoulder were ordered. While in the office today, the patient reports right shoulder pain ongoing for months. She mentions radiating pain from her right shoulder down to her arm and limited range of motion in the right shoulder. She also reports worsening pain while getting dressed. She denies numbness or tingling. No history of injury. She has tried Tylenol arthritis with no relief. She has not tried any previous treatment. I have placed a referral to physical therapy. The patient will follow-up with Dr. Cantu for further evaluation and treatment. Follow-up will be PRN with me, or sooner if needed. X-rays of the right shoulder, obtained on 07/19/24, revealed: Moderate degenerative changes in the acromioclavicular joint. Orders: Orders PT Evaluation and Treatment Today M54.12 - Radiculopathy, cervical region Patient Instructions: Scribed by Meaghan Gómez medical claims assistant, for Cheri Cee PA-C on 07/24/24 at 4:07 pm EST. Coding Level of Care Code Est Pt Level 3 (23398) Diagnoses Cervical radiculopathy M54.12
[2024-08-23 15:22] VITALS: BMI 32.4
== END 2024-08-23 15:50 | disposition home or self-care (01) ==
PROVIDERS: PCP General Practice; Visit Provider Physician Assistant
DX: M54.12 Radiculopathy, cervical region (principal)
CPT/HCPCS: 99213

== ENCOUNTER → 2024-08-23 15:17 | Outpatient (BNVA) | payer MEDICAID, SELFPAY | PROVIDERS: PCP General Practice; Visit Provider Physician Assistant | DX: M25.511 Pain in right shoulder (principal); M54.12 Radiculopathy, cervical region | CPT/HCPCS: 99212 ==

== ENCOUNTER 2024-10-20 10:52 | Inpatient (IN) | payer MEDICAID, OTHER, SELFPAY ==
--- NOTE | ~2024-10-20 | CT_ITS ---
EXAMINATION: CT HEAD WITHOUT CONTRAST CLINICAL INFORMATION: altered COMPARISON: CT dated July 24, 2023 TECHNIQUE: Contiguous axial imaging was performed from the skull base to vertex without intravenous administration of contrast. This CT examination was performed using dose optimization techniques as appropriate, variously including the following: *Automated exposure control *Adjustment of mA and/or kV according to patient size (this includes techniques or standardized protocols for targeted exams where dose is matched to indication/reason for exam; i.e. extremities or head) *Use of iterative reconstruction technique DLP: 667 mGy-cm FINDINGS: No acute intracranial hemorrhage, mass effect, midline shift, hydrocephalus or herniation. Barrera-white matter differentiation is normal. Posterior cranial fossa contents demonstrated no acute intracranial hemorrhage or mass effect. There is a 1.8 cm peripheral calcified low density lesion centered in the pineal gland. Calcified plaques in the cavernous segments both ICAs. Sellar/suprasellar region demonstrated no gross masses or hemorrhage. Craniocervical junction is intact and normal. The bony calvarium is intact. The skull base is intact. Mucosal thickening, paranasal sinuses without air-fluid levels. Tympanic cavities and mastoid air cells are aerated. No gross masses or hematoma in the intraconal or extraconal compartments of the orbits. CT/CT head/brain wo IV con IMPRESSION: No acute intracranial hemorrhage or acute brain abnormality by CT. 1.8 cm partially calcified low density lesion, pineal gland. Stable. Electronically signed by: Jimmy Singh MD 10/20/2024 12:04 PM [facility]
--- NOTE | ~2024-10-20 | XR_ITS ---
CLINICAL HISTORY: cough 1 view chest x-ray Comparison: None Findings: No consolidation or effusion. Heart size is normal. No acute fracture. IMPRESSION: 1. No acute findings. This document has been electronically signed by: Olayinka Rudolph MD on 10/20/2024 16:49:52
--- NOTE | 2024-10-20 11:05 | ED.GENADULT ---
HPI - General Adult General Chief complaint: Psychiatric Symptoms Stated complaint: ETOH? Disoriented Time Seen by Provider: 10/20/24 11:31 Source: patient, family and old records reviewed Mode of arrival: ambulatory Limitations: other History of Present Illness ED Provider: BARTVI Related Data Home Medications ?Medication ?Instructions ?Recorded ?Confirmed baclofen 10 mg tablet 10 mg PO TID PRN Muscle Spasm 09/05/20 10/20/24 hydrochlorothiazide 25 mg tablet 25 mg PO DAILY 09/05/20 10/20/24 quetiapine 100 mg tablet (Seroquel) 100 mg PO BEDTIME 09/05/20 10/20/24 cholecalciferol (vitamin D3) 50 50 mcg PO DAILY 08/27/21 10/20/24 mcg (2,000 unit) tablet albuterol sulfate 90 mcg/actuation 2 puff inhalation QID PRN Wheezing 02/13/22 10/20/24 aerosol inhaler atorvastatin 80 mg tablet 40 mg PO DAILY 02/13/22 10/20/24 sumatriptan succinate 100 mg tablet 100 mg PO DAILY [id number] PRN headaches 02/13/22 10/20/24 amitriptyline 25 mg tablet 25 mg PO BEDTIME 11/27/23 10/20/24 escitalopram oxalate 10 mg tablet 10 mg PO DAILY 11/27/23 10/20/24 inhalational spacing device #1 ea 11/27/23 (Compact Space Chamber) lisinopril 40 mg tablet 40 mg PO DAILY 11/27/23 10/20/24 nifedipine 30 mg tablet,extended 30 mg PO DAILY 11/27/23 10/20/24 release 24 hr propranolol 40 mg tablet 40 mg PO BID 11/27/23 10/20/24 quetiapine 50 mg tablet 50 mg PO BID@0900,1700 11/27/23 10/20/24 zolpidem 5 mg tablet 5 mg PO BEDTIME PRN insomnia 11/27/23 10/20/24 buspirone 5 mg tablet 30 mg PO BID 10/20/24 10/20/24 Previous Rx's ?Medication ?Instructions ?Recorded clonidine HCl 0.1 mg tablet 0.1 mg PO BID #60 tabs 02/15/22 Allergies Allergy/AdvReac Type Severity Reaction Status Date / Time No Known Allergies Allergy Verified 10/20/24 11:08 [facility] Past Medical History Source: old records reviewed Medical History Osteoarthritis GERD (gastroesophageal reflux disease) Hypothyroid Hx of hepatitis C Migraines Anxiety Depression Asthma Hypertension Surgical History History of esophagogastroduodenoscopy (EGD) History of nasal surgery History of tubal ligation History of colonoscopy Family History Family History Father No problems noted. Mother HTN (hypertension) Social History Social History Household Members: None Are you a primary primary care sales representative to a significant other at home: No Do you presently have visiting nurse or other home services: No Alcohol intake: never Patient Tobacco Use Status: Never used Tobacco Smoked in Last 30 Days: No Use of substances other than those prescribed or required for medical reasons: Yes Substance Use Type: Crack/Cocaine Advance Directives: Yes Advance Directives on File: Yes Advance Directives Date on File: 02/19/22 service: No Current occupational status: employed Physical Exam ED Vital Signs: Vital Signs - 24 hr 10/20/24 12:47 10/20/24 14:46 10/20/24 18:49 Temperature 97.5 F Pulse Rate 62 66 60 Respiratory Rate 18 18 14 Blood Pressure 147/82 H 147/75 H 145/86 H Pulse Oximetry 98 97 96 Oxygen Delivery Method Room Air Room Air 10/20/24 22:42 10/20/24 22:42 10/21/24 03:25 Temperature 97.8 F Pulse Rate 60 76 Respiratory Rate 17 Blood Pressure 145/86 H 145/86 H Pulse Oximetry 99 Oxygen Delivery Method Room Air 10/21/24 10:03 Temperature 98.3 F Pulse Rate 68 Respiratory Rate 14 Blood Pressure 150/88 H Pulse Oximetry 98 Oxygen Delivery Method Room Air BMI result Body Mass Index 28.3 Course Course Course Narrative: RME, this is a rapid medical exam performed by Eric Chavira please refer to primary provider for complete H&P- 59-year-old female presents for evaluation with her daughter for altered mental status. Per the patient's daughter, the patient has been ?mixing all of her pills. Specifically, the patient's daughter, the patient has been taking baclofen, Seroquel, and Valium. She has also been buying pills off the street. She has been confused for the last 4 days, urinating on herself. Plan for workup including labs, ammonia, CT scan of the brain. Reevaluation(s) Reevaluation #1: Physician observation continued. VS stable, no acute events overnight, final dispo per CARE team. will continue to monitor [place] 10/21/24 7am WBC count high but no urinary symptoms, no cough or fevers, no rash noted. Possible stress reaction Reevaluation #2: observation care revealed that the patient does meet psychiatric necessity for hospitalization. final disposition discussed with the patient. The patient completed observation care at 1223pm to be admitted inpatient [place] 10/21/24 Medications Administered Generic Name Dose Route Start Last Admin Trade Name Freq PRN Reason Stop Dose Admin Amitriptyline HCl 25 mg 10/20/24 21:45 10/20/24 22:42 Amitriptyline Hcl 25 Mg Tablet PO 25 mg BEDTIME LAILA Administration Atorvastatin Calcium 40 mg 10/21/24 09:00 10/21/24 09:59 Atorvastatin Calcium 40 Mg Tablet PO 40 mg DAILY LAILA Administration Buspirone HCl 30 mg 10/20/24 21:45 10/21/24 09:59 Buspirone Hcl 10 Mg Tablet PO 30 mg BID LAILA Administration Clonidine HCl 0.1 mg 10/20/24 21:45 10/21/24 09:59 Clonidine Hcl 0.1 Mg Tablet PO 0.1 mg BID LAILA Administration Protocol Escitalopram Oxalate 10 mg 10/20/24 21:45 10/21/24 09:59 Escitalopram Oxalate 10 Mg Tablet PO 10 mg DAILY LAILA Administration Hydrochlorothiazide 25 mg 10/21/24 09:00 10/21/24 09:59 Hydrochlorothiazide 25 Mg Tablet PO 25 mg DAILY LAILA Administration Protocol Lisinopril 40 mg 10/21/24 09:00 10/21/24 09:59 Lisinopril 40 Mg Tablet PO 40 mg DAILY LAILA Administration Protocol Nifedipine 30 mg 10/21/24 09:00 10/21/24 09:59 Nifedipine Er 30 Mg Tab.Er.24 PO 30 mg DAILY LAILA Administration Protocol Propranolol HCl 40 mg 10/20/24 21:45 10/21/24 09:59 Propranolol Hcl 40 Mg Tablet PO 40 mg BID LAILA Administration Protocol Quetiapine Fumarate 50 mg 10/21/24 09:00 10/21/24 09:59 Quetiapine Fumarate 50 Mg Tablet PO 50 mg BID@0900,1700 LAILA Administration Quetiapine Fumarate 100 mg 10/20/24 21:45 10/20/24 22:42 Quetiapine Fumarate 100 Mg Tablet PO 100 mg BEDTIME LAILA Administration Discontinued Medications Generic Name Dose Route Start Last Admin Trade Name Liseth PRN Reason Stop Dose Admin Sodium Chloride 1,000 mls @ 999 mls/hr 10/20/24 12:15 10/20/24 19:23 Ns IVCONT 10/20/24 13:15 Infused .Q1H1M LAILA Infusion Sodium Chloride 1,000 mls @ 999 mls/hr 10/20/24 12:45 10/20/24 19:23 Ns IVCONT 10/20/24 13:45 Infused .Q1H1M LAILA Infusion Medical Decision Making Lab Data [facility] Lab Attestation statement: I reviewed the patient's lab results. 10/20/24 12:07 10/20/24 12:07 Labs: Lab Results 10/20/24 10/20/24 10/20/24 Range/Units 12:07 15:51 15:55 WBC 13.3 H (4.8-10.8) X10*3/uL RBC 3.78 L (4.20-5.50) X10*6/uL Hgb 9.8 L (12.0-16.0) g/dl Hct 31.6 L (37.0-47.0) % MCV 83.6 (80.0-98.0) fL MCH 25.9 L (27.0-33.0) pg MCHC 31.0 (31.0-35.0) g/dl RDW 15.7 (11.0-16.0) % Plt Count 268 (160-400) X10*3/uL MPV 10.0 (9.4-12.3) fL Immature Gran % (Auto) 0.5 H (0.0-0.4) % Neut % (Auto) 81.9 H (45-73) % Lymph % (Auto) 11.2 L (20-40) % [place] % (Auto) 4.2 (2-11) % Eos % (Auto) 1.9 (0-4) % Baso % (Auto) 0.3 (0-2) % Lymph # (Auto) 1.5 (1.2-4.9) X10*3/uL [place] # (Auto) 0.6 (0.1-1.2) X10*3/uL Eos # (Auto) 0.3 (0.0-0.4) X10*3/uL Baso # (Auto) 0.0 (0.0-0.2) X10*3/uL Abs Immat Gran (auto) 0.06 H (0.00-0.03) X10*3/uL Absolute Neuts (auto) 10.9 H (2.0-8.3) x10*3/uL Absolute Nucleated RBC 0.000 (0.0-0.012) X10*3/uL Nucleated RBC % (auto) 0.0 (0.0-0.2) /100WBC PT 11.4 (10.9-12.4) SEC INR 1.0 (0.9-1.1) VBG pH 7.42 (7.32-7.43) VBG pCO2 40 mmHg VBG pO2 61 mmHg VBG HCO3 26 (22-26) mmol/L VBG O2 Saturation 90.0 % VBG Base Excess 1.8 mmol/L Sodium 142 (135-145) mmol/L Potassium 4.0 (3.3-5.1) mmol/L Chloride 109 H (96-108) mmol/L Carbon Dioxide 26 (22-29) mmol/L Anion Gap 11 L (12-20) BUN 13 (9-16) mg/dL Creatinine 0.70 (0.5-1.4) mg/dL Estim Creat Clear Calc 84.6 Estimated GFR > 60 Random Glucose 98 (60-115) mg/dL Calcium 9.6 (8.4-10.2) mg/dL Total Bilirubin 0.2 (0.0-1.0) mg/dL AST 27 (5-31) U/L ALT 23 (0-31) U/L Alkaline Phosphatase 115 (39-117) U/L Ammonia 29 (13-55) umol/L Total Creatine Kinase 105 (26-140) U/L Troponin I High Sens < 2.7 (<3.5-17.0) ng/L Total Protein 7.5 (6.5-8.0) g/dL Albumin 3.8 (3.5-5.0) g/dL Lipase 13 (8-78) U/L Urine Color Urine Appearance Urine pH (5.0-9.0) Ur Specific Page (1.005-1.025) Urine Protein (Neg-Trace) mg/dL Urine Glucose (UA) (Negative) mg/dL Urine Ketones (Negative) mg/dL Urine Blood (Negative) Urine Nitrite (Negative) Ur Leukocyte Esterase (Negative) Urine RBC (0-2) /HPF Urine WBC (0-5) /HPF Ur Squamous Epith Cells (0-2) /HPF Urine Bacteria (None Seen) Hyaline Casts (0-2) /LPF Salicylates < 5.0 L (15-30) mg/dL Urine Opiates Screen (Not Detect) Ur Buprenorphine Scrn (Not Detect) ng/mL Ur Oxycodone Screen (Not Detect) ng/mL Urine Methadone Screen (Not Detect) ng/mL Urine Fentanyl Screen (Not Detect) Acetaminophen < 3 (<30) mcg/mL Ur Barbiturates Screen (Not Detect) Ur Phencyclidine Scrn (Not Detect) Ur Amphetamines Screen (Not Detect) U Benzodiazepines Scrn (Not Detect) Urine Cocaine Screen (Not Detect) U Marijuana (THC) Screen (Not Detect) Ethyl Alcohol < 10 mg/dL Influenza Type A (PCR) NEGATIVE (Negative) Influenza Type B (PCR) NEGATIVE (Negative) RSV RNA Qual (PCR) NEGATIVE (Negative) SARS-CoV-2 RNA (RT-PCR) NEGATIVE (Negative) 10/20/24 Range/Units 16:11 WBC (4.8-10.8) X10*3/uL RBC (4.20-5.50) X10*6/uL Hgb (12.0-16.0) g/dl Hct (37.0-47.0) % MCV (80.0-98.0) fL MCH (27.0-33.0) pg MCHC (31.0-35.0) g/dl RDW (11.0-16.0) % Plt Count (160-400) X10*3/uL MPV (9.4-12.3) fL Immature Gran % (Auto) (0.0-0.4) % Neut % (Auto) (45-73) % Lymph % (Auto) (20-40) % [place] % (Auto) (2-11) % Eos % (Auto) (0-4) % Baso % (Auto) (0-2) % Lymph # (Auto) (1.2-4.9) X10*3/uL [place] # (Auto) (0.1-1.2) X10*3/uL Eos # (Auto) (0.0-0.4) X10*3/uL Baso # (Auto) (0.0-0.2) X10*3/uL Abs Immat Gran (auto) (0.00-0.03) X10*3/uL Absolute Neuts (auto) (2.0-8.3) x10*3/uL Absolute Nucleated RBC (0.0-0.012) X10*3/uL Nucleated RBC % (auto) (0.0-0.2) /100WBC PT (10.9-12.4) SEC INR (0.9-1.1) VBG pH (7.32-7.43) VBG pCO2 mmHg VBG pO2 mmHg VBG HCO3 (22-26) mmol/L VBG O2 Saturation % VBG Base Excess mmol/L Sodium (135-145) mmol/L Potassium (3.3-5.1) mmol/L Chloride (96-108) mmol/L Carbon Dioxide (22-29) mmol/L Anion Gap (12-20) BUN (9-16) mg/dL Creatinine (0.5-1.4) mg/dL Estim Creat Clear Calc Estimated GFR Random Glucose (60-115) mg/dL Calcium (8.4-10.2) mg/dL Total Bilirubin (0.0-1.0) mg/dL AST (5-31) U/L ALT (0-31) U/L Alkaline Phosphatase (39-117) U/L Ammonia (13-55) umol/L Total Creatine Kinase (26-140) U/L Troponin I High Sens (<3.5-17.0) ng/L Total Protein (6.5-8.0) g/dL Albumin (3.5-5.0) g/dL Lipase (8-78) U/L Urine Color Yellow Urine Appearance Clear Urine pH 6.0 (5.0-9.0) Ur Specific Page 1.015 (1.005-1.025) Urine Protein Negative (Neg-Trace) mg/dL Urine Glucose (UA) Negative (Negative) mg/dL Urine Ketones Negative (Negative) mg/dL Urine Blood Negative (Negative) Urine Nitrite Negative (Negative) Ur Leukocyte Esterase Negative (Negative) Urine RBC 0-2 (0-2) /HPF Urine WBC 0-5 (0-5) /HPF Ur Squamous Epith Cells 0-2 (0-2) /HPF Urine Bacteria None Seen (None Seen) Hyaline Casts 0-2 (0-2) /LPF Salicylates (15-30) mg/dL Urine Opiates Screen Not Detected (Not Detect) Ur Buprenorphine Scrn Not Detected (Not Detect) ng/mL Ur Oxycodone Screen Not Detected (Not Detect) ng/mL Urine Methadone Screen Not Detected (Not Detect) ng/mL Urine Fentanyl Screen Not Detected (Not Detect) Acetaminophen (<30) mcg/mL Ur Barbiturates Screen Not Detected (Not Detect) Ur Phencyclidine Scrn Not Detected (Not Detect) Ur Amphetamines Screen Not Detected (Not Detect) U Benzodiazepines Scrn POSITIVE H (Not Detect) Urine Cocaine Screen POSITIVE H (Not Detect) U Marijuana (THC) Screen Not Detected (Not Detect) Ethyl Alcohol mg/dL Influenza Type A (PCR) (Negative) Influenza Type B (PCR) (Negative) RSV RNA Qual (PCR) (Negative) SARS-CoV-2 RNA (RT-PCR) (Negative) External Record Review External record reviewed: Outpatient record Discharge Plan Discharge Clinical Impression: Substance abuse, Cocaine abuse, Benzodiazepine abuse Patient Disposition: Admitted As Inpatient Interventions: [place]-Suicide Risk Severity Scale Last Done: 10/21/24 01:20
[2024-10-20 11:06] VITALS: BP 128/77; PULSE 63; RESP 16; TEMP 36.9; O2SAT 98; BMI 28.3
--- NOTE | 2024-10-20 11:07 | ECG_ITS ---
Test Reason : ALTERED MENTAL Blood Pressure : */* mmHG Vent. Rate : 61 BPM Atrial Rate : 61 BPM P-R Int : 172 ms QRS Dur : 94 ms QT Int : 502 ms P-R-T Axes : 64 40 49 degrees QTcB Int : 505 ms Normal sinus rhythm Possible Left atrial enlargement Nonspecific T wave abnormality Abnormal ECG When compared with ECG of 17-Oct-2023 13:24, Nonspecific T wave abnormality has replaced inverted T waves in Lateral leads Referred By: Barrett Chavira Electronically Signed By: SHADI ASENCIO
--- NOTE | 2024-10-20 11:44 | ED.AMS ---
HPI - Altered Mental Status General Chief Complaint: Altered Mental Status Stated Complaint: ETOH? Disoriented Time Seen by Provider: 10/20/24 11:31 Source: family (daughter) Limitations: altered mental status History of Present Illness HPI narrative: This is a 59 years old female patient presented to the emergency department with altered mental status. She was brought here by the daughter who found the mother confuse, undressed, pills in the floor. She has access to Seroquel she has access to baclofen. per daughter she is also buying pills in the street MD complaint: altered mental status Onset (ago): hour(s) (4) Timing confirmed by: other (daughter) Severity: moderate Consistency of symptoms: constant Context: drug abuse Associated symptoms: denies other symptoms Related Data Home Medications ?Medication ?Instructions ?Recorded ?Confirmed baclofen 10 mg tablet 10 mg PO TID PRN Muscle Spasm 09/05/20 06/07/24 hydrochlorothiazide 25 mg tablet 25 mg PO DAILY 09/05/20 06/07/24 loratadine 10 mg tablet 10 mg PO DAILY 09/05/20 06/07/24 quetiapine 100 mg tablet (Seroquel) 100 mg PO BEDTIME 09/05/20 06/07/24 cholecalciferol (vitamin D3) 50 50 mcg PO DAILY 08/27/21 06/07/24 mcg (2,000 unit) tablet albuterol sulfate 90 mcg/actuation 2 puff inhalation QID PRN Wheezing 02/13/22 06/07/24 aerosol inhaler atorvastatin 80 mg tablet 80 mg PO BEDTIME 02/13/22 06/07/24 fluticasone propionate 110 2 puff inhalation BID 02/13/22 06/07/24 mcg/actuation HFA aerosol inhaler (Flovent HFA) sumatriptan succinate 100 mg tablet 100 mg PO DAILY MRX1 PRN headaches 02/13/22 06/07/24 amitriptyline 25 mg tablet 25 mg PO BEDTIME 11/27/23 06/07/24 mxxnhotfio-ekfwglrebfnbx-vlqjwgwl 1 tab PO DAILY PRN migraine 11/27/23 06/07/24 50 mg-325 mg-40 mg tablet escitalopram oxalate 10 mg tablet 10 mg PO QAM 11/27/23 06/07/24 inhalational spacing device #1 ea 11/27/23 (Compact Space Chamber) lisinopril 40 mg tablet 40 mg PO QAM 11/27/23 06/07/24 meloxicam 7.5 mg tablet 7.5 mg PO QAM 11/27/23 06/07/24 nifedipine 30 mg tablet,extended 30 mg PO QAM 11/27/23 06/07/24 release 24 hr propranolol 40 mg tablet 40 mg PO BID 11/27/23 06/07/24 quetiapine 50 mg tablet 50 mg PO BID 11/27/23 06/07/24 zolpidem 5 mg tablet 5 mg PO BEDTIME insomnia 11/27/23 06/07/24 Previous Rx's ?Medication ?Instructions ?Recorded buspirone 5 mg tablet 5 mg PO BID #60 tabs 12/30/21 clonidine HCl 0.1 mg tablet 0.1 mg PO BID #60 tabs 02/15/22 ibuprofen 600 mg tablet 600 mg PO TID PRN pain #20 tabs 02/05/23 lidocaine 5 % topical patch 1 patch topical DAILY #15 ea 03/09/23 lansoprazole 30 mg capsule,delayed 30 mg PO QAM #90 caps 10/07/23 release ondansetron 4 mg disintegrating 4 mg PO Q8H PRN nausea and 11/27/23 tablet vomiting #20 tabs plecanatide 3 mg tablet (Trulance) 3 mg PO DAILY #30 tabs 11/27/23 esomeprazole magnesium 40 mg 40 mg PO DAILY #90 caps 08/31/24 capsule,delayed release linaclotide 290 mcg capsule 290 mcg PO DAILY #30 caps 10/11/24 (Linzess) Allergies Allergy/AdvReac Type Severity Reaction Status Date / Time No Known Allergies Allergy Verified 10/20/24 11:08 Review of Systems Review of Systems: Yes Unobtainable due to mental status [facility] Past Medical History Attestation statement: The following information was validated with the patient. [facility] Narrative: History of depression, history of hepatitis-C history of substance abuse Medical History Osteoarthritis GERD (gastroesophageal reflux disease) Hypothyroid Hx of hepatitis C Migraines Anxiety Depression Asthma Hypertension Surgical History History of esophagogastroduodenoscopy (EGD) History of nasal surgery History of tubal ligation History of colonoscopy Family History Family History Father No problems noted. Mother HTN (hypertension) Social History Social History Household Members: None Are you a primary resident care technician to a significant other at home: No Do you presently have visiting nurse or other home services: No Alcohol intake: never Patient Tobacco Use Status: Never used Tobacco Smoked in Last 30 Days: No Use of substances other than those prescribed or required for medical reasons: Yes Substance Use Type: Crack/Cocaine Advance Directives: Yes Advance Directives on File: Yes Advance Directives Date on File: 02/19/22 service: No Current occupational status: employed Physical Exam ED Vital Signs: Vital Signs - 24 hr 10/20/24 11:06 10/20/24 12:47 10/20/24 14:46 Temperature 98.5 F Pulse Rate 63 62 66 Respiratory Rate 16 18 18 Blood Pressure 128/77 147/82 H 147/75 H Pulse Oximetry 98 98 97 Oxygen Delivery Method Room Air Room Air BMI result Body Mass Index 28.3 She is awake but disoriented Const General: comfortable and no acute distress HENMT Head: Yes normal to inspection General nose exam: Normal external nose present Mouth: Normal oral and palatal mucosa present Neck Neck: Yes normal visual inspection and Yes full ROM Chest Chest palpation & inspection: normal inspection of the chest Resp Effort & Inspection: normal respiratory effort Auscultation: clear to auscultation bilaterally Cardio Jugular venous distension: no JVD Rate: regular rate GI Inspection: Yes normal to inspection Palpation (GI): Soft to palpation, not firm and nontender Skin General skin exam: no rashes or lesions noted and elasticity normal Lesions: no lesions Rashes: no rashes Extrem General: Yes normal to inspection Course Reevaluation(s) Reevaluation #1: On re-evaluation she is doing much better daughter is at bedside Time: 16:20 Reevaluation #2: case was signed out to Dr Lane detailed signed out given Time: 16:41 Medications Administered Discontinued Medications Generic Name Dose Route Start Last Admin Trade Name Freq PRN Reason Stop Dose Admin Sodium Chloride 1,000 mls @ 999 mls/hr 10/20/24 12:15 10/20/24 12:45 Ns IVCONT 10/20/24 13:15 999 mls/hr .Q1H1M LAILA Administration Sodium Chloride 1,000 mls @ 999 mls/hr 10/20/24 12:45 10/20/24 12:46 Ns IVCONT 10/20/24 13:45 999 mls/hr .Q1H1M LAILA Administration Medical Decision Making Medical Decision Making [facility] Narrative: Patient presented with altered mental status we will check labs urine drug screen Differential Diagnosis Differential Diagnoses: The differential diagnosis associated with the presentation includes Substance abuse/toxic ingestion/alcohol intoxications Admission/Observation Consideration of admission/observation: Escalation of care including admission/observation considered Lab Data [facility] Lab Attestation statement: I reviewed the patient's lab results. 10/20/24 12:07 10/20/24 12:07 Labs: Lab Results 10/20/24 10/20/24 10/20/24 Range/Units 12:07 15:51 15:55 WBC 13.3 H (4.8-10.8) X10*3/uL RBC 3.78 L (4.20-5.50) X10*6/uL Hgb 9.8 L (12.0-16.0) g/dl Hct 31.6 L (37.0-47.0) % MCV 83.6 (80.0-98.0) fL MCH 25.9 L (27.0-33.0) pg MCHC 31.0 (31.0-35.0) g/dl RDW 15.7 (11.0-16.0) % Plt Count 268 (160-400) X10*3/uL MPV 10.0 (9.4-12.3) fL Immature Gran % (Auto) 0.5 H (0.0-0.4) % Neut % (Auto) 81.9 H (45-73) % Lymph % (Auto) 11.2 L (20-40) % [place] % (Auto) 4.2 (2-11) % Eos % (Auto) 1.9 (0-4) % Baso % (Auto) 0.3 (0-2) % Lymph # (Auto) 1.5 (1.2-4.9) X10*3/uL [place] # (Auto) 0.6 (0.1-1.2) X10*3/uL Eos # (Auto) 0.3 (0.0-0.4) X10*3/uL Baso # (Auto) 0.0 (0.0-0.2) X10*3/uL Abs Immat Gran (auto) 0.06 H (0.00-0.03) X10*3/uL Absolute Neuts (auto) 10.9 H (2.0-8.3) x10*3/uL Absolute Nucleated RBC 0.000 (0.0-0.012) X10*3/uL Nucleated RBC % (auto) 0.0 (0.0-0.2) /100WBC PT 11.4 (10.9-12.4) SEC INR 1.0 (0.9-1.1) VBG pH 7.42 (7.32-7.43) VBG pCO2 40 mmHg VBG pO2 61 mmHg VBG HCO3 26 (22-26) mmol/L VBG O2 Saturation 90.0 % VBG Base Excess 1.8 mmol/L Sodium 142 (135-145) mmol/L Potassium 4.0 (3.3-5.1) mmol/L Chloride 109 H (96-108) mmol/L Carbon Dioxide 26 (22-29) mmol/L Anion Gap 11 L (12-20) BUN 13 (9-16) mg/dL Creatinine 0.70 (0.5-1.4) mg/dL Estim Creat Clear Calc 84.6 Estimated GFR > 60 Random Glucose 98 (60-115) mg/dL Calcium 9.6 (8.4-10.2) mg/dL Total Bilirubin 0.2 (0.0-1.0) mg/dL AST 27 (5-31) U/L ALT 23 (0-31) U/L Alkaline Phosphatase 115 (39-117) U/L Ammonia 29 (13-55) umol/L Total Creatine Kinase 105 (26-140) U/L Troponin I High Sens < 2.7 (<3.5-17.0) ng/L Total Protein 7.5 (6.5-8.0) g/dL Albumin 3.8 (3.5-5.0) g/dL Lipase 13 (8-78) U/L Urine Color Urine Appearance Urine pH (5.0-9.0) Ur Specific [place] (1.005-1.025) Urine Protein (Neg-Trace) mg/dL Urine Glucose (UA) (Negative) mg/dL Urine Ketones (Negative) mg/dL Urine Blood (Negative) Urine Nitrite (Negative) Ur Leukocyte Esterase (Negative) Urine RBC (0-2) /HPF Urine WBC (0-5) /HPF Ur Squamous Epith Cells (0-2) /HPF Urine Bacteria (None Seen) Hyaline Casts (0-2) /LPF Salicylates < 5.0 L (15-30) mg/dL Urine Opiates Screen (Not Detect) Ur Buprenorphine Scrn (Not Detect) ng/mL Ur Oxycodone Screen (Not Detect) ng/mL Urine Methadone Screen (Not Detect) ng/mL Urine Fentanyl Screen (Not Detect) Acetaminophen < 3 (<30) mcg/mL Ur Barbiturates Screen (Not Detect) Ur Phencyclidine Scrn (Not Detect) Ur Amphetamines Screen (Not Detect) U Benzodiazepines Scrn (Not Detect) Urine Cocaine Screen (Not Detect) U Marijuana (THC) Screen (Not Detect) Ethyl Alcohol < 10 mg/dL Influenza Type A (PCR) NEGATIVE (Negative) Influenza Type B (PCR) NEGATIVE (Negative) RSV RNA Qual (PCR) NEGATIVE (Negative) SARS-CoV-2 RNA (RT-PCR) NEGATIVE (Negative) 10/20/24 Range/Units 16:11 WBC (4.8-10.8) X10*3/uL RBC (4.20-5.50) X10*6/uL Hgb (12.0-16.0) g/dl Hct (37.0-47.0) % MCV (80.0-98.0) fL MCH (27.0-33.0) pg MCHC (31.0-35.0) g/dl RDW (11.0-16.0) % Plt Count (160-400) X10*3/uL MPV (9.4-12.3) fL Immature Gran % (Auto) (0.0-0.4) % Neut % (Auto) (45-73) % Lymph % (Auto) (20-40) % [place] % (Auto) (2-11) % Eos % (Auto) (0-4) % Baso % (Auto) (0-2) % Lymph # (Auto) (1.2-4.9) X10*3/uL [place] # (Auto) (0.1-1.2) X10*3/uL Eos # (Auto) (0.0-0.4) X10*3/uL Baso # (Auto) (0.0-0.2) X10*3/uL Abs Immat Gran (auto) (0.00-0.03) X10*3/uL Absolute Neuts (auto) (2.0-8.3) x10*3/uL Absolute Nucleated RBC (0.0-0.012) X10*3/uL Nucleated RBC % (auto) (0.0-0.2) /100WBC PT (10.9-12.4) SEC INR (0.9-1.1) VBG pH (7.32-7.43) VBG pCO2 mmHg VBG pO2 mmHg VBG HCO3 (22-26) mmol/L VBG O2 Saturation % VBG Base Excess mmol/L Sodium (135-145) mmol/L Potassium (3.3-5.1) mmol/L Chloride (96-108) mmol/L Carbon Dioxide (22-29) mmol/L Anion Gap (12-20) BUN (9-16) mg/dL Creatinine (0.5-1.4) mg/dL Estim Creat Clear Calc Estimated GFR Random Glucose (60-115) mg/dL Calcium (8.4-10.2) mg/dL Total Bilirubin (0.0-1.0) mg/dL AST (5-31) U/L ALT (0-31) U/L Alkaline Phosphatase (39-117) U/L Ammonia (13-55) umol/L Total Creatine Kinase (26-140) U/L Troponin I High Sens (<3.5-17.0) ng/L Total Protein (6.5-8.0) g/dL Albumin (3.5-5.0) g/dL Lipase (8-78) U/L Urine Color Yellow Urine Appearance Clear Urine pH 6.0 (5.0-9.0) Ur Specific [place] 1.015 (1.005-1.025) Urine Protein Negative (Neg-Trace) mg/dL Urine Glucose (UA) Negative (Negative) mg/dL Urine Ketones Negative (Negative) mg/dL Urine Blood Negative (Negative) Urine Nitrite Negative (Negative) Ur Leukocyte Esterase Negative (Negative) Urine RBC 0-2 (0-2) /HPF Urine WBC 0-5 (0-5) /HPF Ur Squamous Epith Cells 0-2 (0-2) /HPF Urine Bacteria None Seen (None Seen) Hyaline Casts 0-2 (0-2) /LPF Salicylates (15-30) mg/dL Urine Opiates Screen Not Detected (Not Detect) Ur Buprenorphine Scrn Not Detected (Not Detect) ng/mL Ur Oxycodone Screen Not Detected (Not Detect) ng/mL Urine Methadone Screen Not Detected (Not Detect) ng/mL Urine Fentanyl Screen Not Detected (Not Detect) Acetaminophen (<30) mcg/mL Ur Barbiturates Screen Not Detected (Not Detect) Ur Phencyclidine Scrn Not Detected (Not Detect) Ur Amphetamines Screen Not Detected (Not Detect) U Benzodiazepines Scrn POSITIVE H (Not Detect) Urine Cocaine Screen POSITIVE H (Not Detect) U Marijuana (THC) Screen Not Detected (Not Detect) Ethyl Alcohol mg/dL Influenza Type A (PCR) (Negative) Influenza Type B (PCR) (Negative) RSV RNA Qual (PCR) (Negative) SARS-CoV-2 RNA (RT-PCR) (Negative) Independent Interpretation I performed an independent interpretation of an: EKG (EKG reviewed interpreted by me as sinus rhythm rate [address]-T changes) Independent Historian Clinical information obtained from an independent historian. History obtained from or confirmed by: Other (daughter) Critical Care Time Critical Care Time Critical Care Time: Yes Total Critical Care Time: 60 Attestation: altered mental status,speaking with daughter ,taking care of the pt Discharge Plan Discharge Clinical Impression: Substance abuse, Cocaine abuse, Benzodiazepine abuse Prescriptions: No Action buspirone 5 mg tablet 5 mg PO BID Qty: 60 1RF lansoprazole 30 mg capsule,delayed release(DR/EC) 30 mg PO QAM Qty: 90 3RF esomeprazole magnesium 40 mg capsule,delayed release(DR/EC) 40 mg PO DAILY Qty: 90 0RF Linzess 290 mcg capsule 290 mcg PO DAILY Qty: 30 0RF quetiapine [Seroquel] 100 mg Tablet 100 mg PO BEDTIME baclofen 10 mg Tablet 10 mg PO TID PRN (Reason: Muscle Spasm) hydrochlorothiazide 25 mg Tablet 25 mg PO DAILY loratadine 10 mg Tablet 10 mg PO DAILY sumatriptan succinate 100 mg tablet 100 mg PO DAILY MRX1 PRN (Reason: headaches) atorvastatin 80 mg Tablet 80 mg PO BEDTIME albuterol sulfate 90 mcg/actuation Hfa Aerosol Inhaler 2 puff INHALATION QID PRN (Reason: Wheezing) fluticasone propionate [Flovent HFA] 110 mcg/actuation Hfa Aerosol Inhaler 2 puff INHALATION BID clonidine HCl 0.1 mg Tablet 0.1 mg PO BID Qty: 60 0RF Protocol: Hold for SBP< HOLD for SBP < : 90 ibuprofen 600 mg tablet 600 mg PO TID PRN (Reason: pain) Qty: 20 0RF lidocaine 5 % adhesive patch,medicated 1 patch topical DAILY Qty: 15 0RF Rx Instructions: leave on most painful area for up to 12 hrs cholecalciferol (vitamin D3) 50 mcg (2,000 unit) tablet 50 mcg PO DAILY zolpidem 5 mg tablet 5 mg PO BEDTIME buwnooiukc-cmdgduaqyracw-qsga 50-325-40 mg tablet 1 tab PO DAILY PRN (Reason: migraine) (DME) Compact Space Chamber Spacer See Rx Instructions .ROUTE Q4H Qty: 1 Rx Instructions: As directed nifedipine 30 mg tablet extended release 24hr 30 mg PO QAM propranolol 40 mg tablet 40 mg PO BID amitriptyline 25 mg tablet 25 mg PO BEDTIME escitalopram oxalate 10 mg tablet 10 mg PO QAM quetiapine 50 mg tablet 50 mg PO BID lisinopril 40 mg tablet 40 mg PO QAM meloxicam 7.5 mg tablet 7.5 mg PO QAM Trulance 3 mg tablet 3 mg PO DAILY Qty: 30 2RF ondansetron 4 mg tablet,disintegrating 4 mg PO Q8H PRN (Reason: nausea and vomiting) Qty: 20 0RF Print Language: Icelandic
[2024-10-20 12:15] LABS: MANUAL DIFF FLAG NO
[2024-10-20 12:19] LABS: Basophils Percent Auto 0.3 % (0-2); Eosinophils Absolute Auto 0.3 X10*3/uL (0.0-0.4); Eosinophils Percent Auto 1.9 % (0-4); Hematocrit 31.6 % (37.0-47.0); Hemoglobin 9.8 g/dl (12.0-16.0); Imm Gran Abs Auto 0.06 X10*3/uL (0.00-0.03); Imm Gran Pct Auto 0.5 % (0.0-0.4); Lymphocytes Absolute Auto 1.5 X10*3/uL (1.2-4.9); Lymphocytes Percent Auto 11.2 % (20-40); Mean Corpuscular Hemoglobin 25.9 pg (27.0-33.0); Mean Corpuscular Volume 83.6 fL (80.0-98.0); Monocytes Absolute Auto 0.6 X10*3/uL (0.1-1.2); Monocytes Percent Auto 4.2 % (2-11); Neutrophils Absolute Auto 10.9 x10*3/uL (2.0-8.3); Neutrophils Percent Auto 81.9 % (45-73); Platelet Count 268 X10*3/uL (160-400); Red Blood Count 3.78 X10*6/uL (4.20-5.50); Red Cell Distribution Width 15.7 % (11.0-16.0); White Blood Count 13.3 X10*3/uL (4.8-10.8)
[2024-10-20 12:22] LABS: Prothrombin Time 11.4 SEC (10.9-12.4)
[2024-10-20 12:34] LABS: Ethanol < 10 mg/dL
[2024-10-20 12:36] LABS: Alanine Aminotransferase 23 U/L (0-31); Albumin Level 3.8 g/dL (3.5-5.0); Alkaline Phosphatase 115 U/L (39-117); Anion Gap 11 (12-20); Aspartate Amino Transferase 27 U/L (5-31); Bilirubin Total 0.2 mg/dL (0.0-1.0); Blood Urea Nitrogen 13 mg/dL (9-16); Calcium 9.6 mg/dL (8.4-10.2); Carbon Dioxide 26 mmol/L (22-29); Chloride 109 mmol/L (96-108); Creatinine Clr Calc Pharmacy 84.6; Estimated Glomerular Filt Rate > 60; Glucose Random 98 mg/dL (60-115); Lipase 13 U/L (8-78); Sodium 142 mmol/L (135-145); Total Protein 7.5 g/dL (6.5-8.0)
[2024-10-20 12:38] LABS: Ammonia 29 umol/L (13-55)
[2024-10-20 12:40] LABS: Troponin-I High Sensitivity < 2.7 ng/L (<3.5-17.0)
[2024-10-20] MEDS: 0.9 % Sodium Chloride 1,000 ML 999 ML IVCONT ×2 (12:45→12:46)
[2024-10-20 12:47] VITALS: BP 147/82; PULSE 62; RESP 18; O2SAT 98
--- NOTE | 2024-10-20 12:47 | PC.NURSE ---
per family pt seemed to take multiple pills last night. pt states she took them to sleep, denies si, family reports uunsteady gait and multiple falls, pt denies head or neck pain and only chronic r shoulder pain, sr on monitor, family at bedside. ns bolusses infusing
[2024-10-20 12:53] LABS: Influenza A PCR NEGATIVE (Negative); Influenza B PCR NEGATIVE (Negative); Resp Syncy Virus RNA Qual PCR NEGATIVE (Negative); SARS COV2 PCR INHOUSE NEGATIVE (Negative)
[2024-10-20 14:46] VITALS: BP 147/75; PULSE 66; RESP 18; O2SAT 97
--- OUTSIDE RECORDS SUMMARY | 2024-10-20 15:10 | XMS_ITS | Clinical Summary ---
Author Organization [facility] ity Address [address] [place] [address] Care Team Providers Care Route Cdl Driver Name Role Phone Unavailable Primary Care Provider Unavailabl e Social History Tobacco Use Types Packs/Day Years Used Date Smoking Tobacco: Never Assessed Sex and Gender Information Value Date Recorded Sex Assigned at Not on file Gender Identity Not on file Sexual Orientation Not on file Plan of Treatment Health Maintenance Due Date Last Done Comments Breast Cancer Screening 1967 DTaP,Tdap,and Td Vaccines (1 - Tdap) 1986 Hepatitis B Vaccines (1 of 3 - 19+ 3-dose series) 1986 Cervical Cancer Screening: P ap Smear 1988 Zoster Vaccines (1 of 2) 2017 Colorectal Cancer Screening: Colonoscopy 10/16/2023 Depression Screening 10/16/2023 HIV Screening 10/16/2023 Hepatitis C Screening 10/16/2023 Social Influencers of Health Screening 10/16/2023 COVID-19 Vaccine (2023-2 5 season) 2024 Influenza Vaccine (#1) 2024 HIB Vaccines Aged Out No longer eligi ble based on patient's age to complete this topic HPV Vaccines Aged Out No longer eligi ble based on patient's age to complete this topic Hepatitis A Vaccines Aged Out No long er eligible based on patient's age to complete this topic IPV Vaccines Aged Out No longer eligi ble based on patient's age to complete this topic MMR Vaccines Aged Out No longer eligi ble based on patient's age to complete this topic Meningococcal ACWY Vaccine Aged Out N o longer eligible based on patient's age to complete this topic Pneumococcal Vaccine: Pediat rics (0 to 5 Years) and At-Risk Patients (6 to 64 Years) Aged Out No longer eligible b ased on patient's age to complete this topic RSV Immunization Patients Un jennifer 20 months Aged Out No longer eligible b ased on patient's age to complete this topic Varicella Vaccines Aged Out No longer eligible based on patient's age to complete this topic
--- OUTSIDE RECORDS SUMMARY | 2024-10-20 15:10 | XMS_ITS | Encounter Summary ---
Author Organization [employer] Address [address] [place] [address] [address] [place] [address] Care Team Providers Care Record Press Operator Name Role Phone Kadi Tomlin MD Primary Care Provider [phone] Reason for Visit * Reason Onset Date Comments Appointment Request 12/25/2022 Encounter Details Date Type Department Care Team ([facility] st Contact Info) Description 12/25/2022 Telephone [facility] [address] [place], [place] [phone] Kadi Tomlin MD [address] [place], [place] [phone] Appointment Request Social History Tobacco Use Types Packs/Day Years Used Date Smoking Tobacco: Never Smokeless Tobacco: Never Alcohol Use Standard Drinks/Week Comments Never 0 (1 standard drink = 0.6 oz pur e alcohol) Comments Unknown Sex and Gender Information Value Date Recorded Sex Assigned at Female 07/21/2022 10:14 AM EDT Legal Sex Female 10:14 AM EDT Gender Identity Female 07/21/2022 10:14 AM EDT Sexual Orientation Straight 07/21/2022 10 :14 AM EDT COVID-19 Exposure Response Date Recorded In the last 10 days, have yo u been in contact with someone who was confirmed or suspected to have Coronavirus/COVID-19? No / Unsure 12/17/2022 1:50 PM EDT documented as of this encounter Miscellaneous Notes * Telephone Encounter - Jay Harry - 12/25/2022 1:30 PM EDT Tc from pt returning phone call to schedule an appt Please contact pt at [phone] documented in this encounter Plan of Treatment Upcoming Encounters Date Type Department Care Team (Late st Contact Info) Description 11/04/2024 3:30 PM EST Procedure Visit [facility] [address] [place] [address] Kadi Tomlin MD [address] [place] [address] documented as of this encounter Visit Diagnoses Not on filedocumented in this encounter Additional Health Concerns Assessment Noted Time PHQ-9 Depression Total Score: 7 11/11/19 23 8:54 AM EST documented as of this encounter Care Teams Record Press Operator Relationship Specialty Start Date End Date Kadi Tomlin MD [address] [place] [address] PCP - General Family Medicine 05/21/21 documented as of this encounter
--- OUTSIDE RECORDS SUMMARY | 2024-10-20 15:10 | XMS_ITS | Encounter Summary ---
Author Organization [employer] Address [address] [facility] [address] [place] [address] Care Team Providers Care Sales And Merchandising Associate Name Role Phone Kadi Tomlin MD Primary Care Provider [phone] Reason for Visit * Reason Comments Med Refill Encounter Details Date Type Department Care Team ([facility] st Contact Info) Description 10/17/2024 Refill [facility] [address] [place], [place] [phone] Kadi Tomlin MD [address] [place], [place] [phone] Benign hypertension Social History Tobacco Use Types Packs/Day Years Used Date Smoking Tobacco: Never Passive Smoke Exposure: Never Smokeless Tobacco: Never Alcohol Use Standard Drinks/Week Comments Never 0 (1 standard drink = 0.6 oz pur e alcohol) Depression Answer Date Recorded Patient Health Questionnaire-9 Score 15 03/28/2024 Patient Health Questionnaire-9 Score 15 03/28/2024 Last PHQ-9: Questionnaire Data Not on file 0 03/28/2024 Housing Stability Answer Date Recorded What is your housing situation today? I have mateo woo 10/27/[address] you li ve. Do you have problems with any of the following? None of the above 10/27/2023 Food Insecurity Answer Date Recorded Within the past 12 months, y ou worried that your food would run out before you got money to buy more: Sometimes True 2023 Within the past 12 months,th e food you bought just didn't last and you didn't have enough money to get more: Sometimes True 10/27/2023 Transportation Answer Date Recorded In the past 12 months, has l ack of transportation kept you from medical appts, meetings, work or from getting things needed for daily living? No 10/27/2023 Utilities Answer Date Recorded In the past 12 months, has t he electric, gas, oil or water company threatened to shut off services in your home? No 10/27/2023 Depression Answer Date Recorded Patient Health Questionnaire-2 Score 6 03/28/2024 Comments Unknown Sex and Gender Information Value Date Recorded Sex Assigned at Female 07/21/2022 10:14 AM EDT Legal Sex Female 10:14 AM EDT Gender Identity Female 07/21/2022 10:14 AM EDT Sexual Orientation Straight 07/21/2022 10 :14 AM EDT documented as of this encounter Plan of Treatment Upcoming Encounters Date Type Department Care Team (Late st Contact Info) Description 11/04/2024 3:30 PM EST Procedure Visit [facility] [address] [place] [address] Kadi Tomlin MD [address] [place] [address] documented as of this encounter Visit Diagnoses Diagnosis Benign hypertension Essential hypertension, benign documented in this encounter Additional Health Concerns Assessment Noted Time PHQ-9 Depression Total Score: 15 024 9:17 AM EDT documented as of this encounter Care Teams Sales And Merchandising Associate Relationship Specialty Start Date End Date Kadi Tomlin MD [address] [place] [phone] PCP - General Family Medicine 05/21/21 documented as of this encounter
--- OUTSIDE RECORDS SUMMARY | 2024-10-20 15:10 | XMS_ITS | Encounter Summary ---
Author Organization [employer] Address [address] [facility] [address] [place] [address] Care Team Providers Care Bailiff Name Role Phone Kadi Tomlin MD Primary Care Provider [phone] Reason for Visit * Reason Onset Date Comments Appointment Request 03/27/2023 Encounter Details Date Type Department Care Team ([facility] st Contact Info) Description 03/27/2023 Telephone [facility] [address] [place], [place] [phone] Kadi Tomlin MD [address] [place], [place] [phone] Appointment Request Social History Tobacco Use Types [...] AM EDT documented as of this encounter Miscellaneous Notes * Telephone Encounter - Jay Harry - 03/27/2023 9:43 AM EDT Tc from pt requesting to r/s appt on 03/23/2023 with Enoc Boles. Please contact pt at [phone] documented in this encounter Plan of Treatment Upcoming Encounters Date Type Department Care Team (Late st Contact Info) Description 11/04/2024 3:30 PM EST Procedure Visit [facility] [address] [place] [address] Kadi Tomlin MD [address] [place] [address] documented as of this encounter Visit Diagnoses Not on filedocumented in this encounter Additional Health Concerns Assessment Noted Time PHQ-9 Depression Total Score: 9 01/09/20 23 9:12 AM EDT documented as of this encounter Care Teams Bailiff Relationship Specialty Start Date End Date Kadi Tomlin MD [address] [place], [place] [phone] PCP - General Family Medicine 05/21/21 documented as of this encounter
--- OUTSIDE RECORDS SUMMARY | 2024-10-20 15:10 | XMS_ITS | Encounter Summary ---
Author Organization [employer] Address [address] [facility] 7t [place] [address] Care Team Providers Care Client Care Representative Name Role Phone Kadi Tomlin MD Primary Care Provider [phone] Encounter Details Date Type Department Care Team (Late st Contact Info) Description 10/20/2024 Orders Only [facility] External Provider, [facility] Social History Tobacco Use Types Packs/Day Years [...] Description 11/04/2024 3:30 PM EST Procedure Visit [facility] [address] [place] [address] Kadi Tomlin MD [address] [place] [address] documented as of this encounter Procedures Procedure Name Priority Date/Time Associated Diagnosis Comments HIGH SENSITIVITY TROPONIN I Routine 10/20/2024 12:07 PM EST ETHANOL Routine 10/20/2024 12:07 PM EST SARS COV2/INFLUENZA A/B AND RSV RNA QL NAAT Routine 10/20/2024 12:07 PM EST CBC WITH AUTO DIFFERENTIAL Routine 10/20/2024 12:07 PM EST PROTHROMBIN TIME-INR Routine 10/20/2024 12:07 PM EST LIPASE Routine 10/20/2024 12:07 PM EST CREATINE KINASE, TOTAL Routine 12:07 PM EST AMMONIA (P) Routine 10/20/2024 12:07 PM EST COMPREHENSIVE METABOLIC PANEL Routine 10/20/2024 12:[address] HEAD WO CONTRAST Routine 10/20/2024 1 1:08 AM EST documented in this encounter Results * SARS-CoV-2 RNA, Influenza A/B, and RSV RNA, Ql NAAT (10/20/2024 12:07 PM EST) Pathologist [facility] Influenza A PCR NEGATIVE Negative [facility] Influenza B PCR NEGATIVE Negative [facility] Resp Syncy Virus RNA Qual PCR NEGATIVE Negative [facility] SARS COV2 PCR NEGATIVE Negative [facility] Comment:All test results mus t be correlated with clinical findings.Negative results do not preclude SARS-CoV2, influenza Avirus, influenza B virus and/or RSV infectionand should not be used as the sole basis for treatment orother patient management decisions. Negative results must becombined with clinical observations, patient history, andepidemiological information.This test has not been evaluated for monitoring treatment ofinfection.This test has been authorized by the FDA under an EmergencyUse Authorization (EUA) for use by authorized laboratories.Testing performed on the [employer] GeneXpert utilizingreal-time RT-PCR.All SARS CoV2 and positive influenza A/B results arereported to [facility]. 10/20/2024 12:0 7 PM EST 10/20/2024 12:13 PM EST Generic External Data Provider LAB MICROBIOLOGY - GENERAL ORDERABLES Final Result Performing Organization Address [facility] de Phone Number [facility] [address] [place] [phone] * High Sensitivity Troponin I (10/20/2024 12:07 PM EST) Pathologist [facility] TROPONIN I HIGH SENSITIVITY <2.7 <3.5 - 17.0 ng/L [facility] Comment:The [place] high sens itivity Troponin-I results should beused in conjunction with other diagnostic information suchas ECG, clinical observations and information, and patientsymptoms to aid in the diagnosis of [facility]. 10/20/2024 12:0 7 PM EST 10/20/2024 12:13 PM EST Generic External Data Provider LAB BLOOD ORDERAB LES Final Result Performing Organization Address [facility]/State/ZIP Co de Phone Number [facility] [address] [place] [phone] * Ammonia, Plasma (10/20/2024 12:07 PM EST) Ammonia (P) 29 13 - 55 umol/L [facility] 10/20/2024 12:0 7 PM EST 10/20/2024 12:13 PM EST us Generic External Data Provider LAB BLOOD ORDERAB LES Final Result Performing Organization Address [facility] Co de Phone Number [facility] [address] [place] [phone] * Lipase (10/20/2024 12:07 PM EST) Lipase 13 8 - 78 U/L [facility] 10/20/2024 12:0 7 PM EST 10/20/2024 12:13 PM EST us Generic External Data Provider LAB BLOOD ORDERAB LES Final Result Performing Organization Address [facility] Co de Phone Number [facility] [address] [place] [phone] * Creatine Kinase, Total (10/20/2024 12:07 PM EST) Creatine Kinase Total 105 26 - 140 U/L [facility] 10/20/2024 12:0 7 PM EST 10/20/2024 12:13 PM EST Generic External Data Provider LAB BLOOD ORDERAB LES Final Result Performing Organization Address [facility] Co de Phone Number [facility] [address] [place] [phone] * (ABNORMAL) Comprehensive Metabolic Panel (10/20/2024 12:07 PM EST) Sodium 142 135 - 145 mmol/L [facility] Potassium 4.0 3.3 - 5.1 mmol/L [facility] Chloride 109(H) 96 - 108 mmol/L [facility] Carbon Dioxide 26 22 - 29 mmol/L [facility] Anion Gap 11(L) 12 - 20 [facility] Urea Nitrogen (BUN) 13 9 - 16 mg/dL [facility] Creatinine, Serum 0.70 0.5 - 1.4 mg/dL [facility] Creatinine Clr Calc Pharmacy 84.6 [facility] Comment:Provided height and weight: 160.02 cm,72.575 kg.eGFR (calculated from the MDRD study equation) and eCrCl(calculated from the Cockcroft-Gault equation) are based ondifferent parameters and may not yield comparable results.If eCrCl result is absurd, please check patient'sheight/weight. Estimated Glomerular Filt Rate >60 [facility] Comment:Chronic Kidney Disea se: Estimated GFR < 60 mL/min/[id number] Kidney Disease: Estimated GFR < 15 mL/min/1.73m2 Glucose 98 60 - 115 mg/dL [facility] Calcium 9.6 8.4 - 10.2 mg/dL [facility] Bilirubin, Total 0.2 0.0 - 1.0 mg/dL [facility] Aspartate Amino Transferase 27 5 - 31 U/L [facility] Alanine Aminotransferase 23 0 - 31 U/L [facility] Total Protein 7.5 6.5 - 8.0 g/dL [facility] Albumin Level 3.8 3.5 - 5.0 g/dL [facility] Alkaline Phosphatase 115 39 - 117 U/L [facility] 10/20/2024 12:0 7 PM EST 10/20/2024 12:13 PM EST us Generic External Data Provider LAB BLOOD ORDERAB LES Final Result [facility] [address] [place] [phone] [phone] * Ethanol (10/20/2024 12:07 PM EST) ETHANOL (MG/DL) IN SER/PLAS <10 mg/dL [facility] Comment:Serum/plasma ethanol results are to be used formedical/treatment purposes only. 10/20/2024 12:0 7 PM EST 10/20/2024 12:13 PM EST Generic External Data Provider LAB BLOOD ORDERAB LES Final Result Performing Organization Address [facility] Co de Phone Number [facility] [address] [place] [phone] * Prothrombin Time-INR (10/20/2024 12:07 PM EST) Pathologist [facility] Prothrombin Time 11.4 10.9 - 12.4 SEC [facility] INTERNATIONAL NORM RATIO 1.0 0.9 - 1.1 [facility] Comment:INTERNATIONAL NORMAL IZED RATIO (INR) REFERENCE RANGES Reference RangeFor patients not on anticoagulant therapy: 0.9 - 1.1INR ranges for oral anticoagulanttherapy:For prevention and treatment of venous thrombosis and pulmonary embolism: 2.0 - 3.0For acute myocardial infarction with aspirin therapy: 2.0 - 3.0For acute myocardial infarction without aspirin therapy: 3.0 - 4.0For patients with mechanical prosthetic heart valves: 2.5 - 3.5 10/20/2024 12:0 7 PM EST 10/20/2024 12:13 PM EST CURRENT External Data Provider LAB BLOOD ORDERAB LES Final Result Performing Organization Address [facility] Co de Phone Number [facility] [address] [place] [phone] * (ABNORMAL) CBC auto differential (10/20/2024 12:07 PM EST) White Blood Count 13.3(H) 4.8 - 10.8 X10*3/uL [facility] Red Blood Count 3.78(L) 4.20 - 5.50 X10*6/uL [facility] Hemoglobin 9.8(L) 12.0 - 16.0 g/dl [facility] Hematocrit 31.6(L) 37.0 - 47.0 % [facility] Mean Corpuscular Volume 83.6 80.0 - 98.0 fL [facility] Mean Corpuscular Hemoglobin 25.9(L) 27.0 - 33.0 pg [facility] Mean Corpuscular HGB Conc 31.0 31.0 - 35.0 g/dl [facility] Red Cell Distribution Width 15.7 11.0 - 16.0 % [facility] Platelet Count 268 160 - 400 X10*3/uL [facility] Mean Platelet Volume 10.0 9.4 - 12.3 fL [facility] Neutrophils Percent Auto 81.9(H) 45 - 73 % [facility] Imm Gran Pct Auto 0.5(H) 0.0 - 0.4 % [facility] Lymphocytes Percent Auto 11.2(L) 20 - 40 % [facility] Monocytes Percent Auto 4.2 2 - 11 % [facility] Eosinophils Percent Auto 1.9 0 - 4 % [facility] Basophils Percent Auto 0.3 0 - 2 % [facility] NRBC Pct Auto 0.0 0.0 - 0.2 /100WBC [facility] Neutrophils Absolute Auto 10.9(H) 2.0 - 8.3 x10*3/uL [facility] Imm Gran Abs Auto 0.06(H) 0.00 - 0.03 X10*3/uL [facility] Lymphocytes Absolute Auto 1.5 1.2 - 4.9 X10*3/uL [facility] Monocytes Absolute Auto 0.6 0.1 - 1.2 X10*3/uL [facility] Eosinophils Absolute Auto 0.3 0.0 - 0.4 X10*3/uL [facility] Basophils Absolute Auto 0.0 0.0 - 0.2 X10*3/uL [facility] NRBC Abs Auto 0.000 0.0 - 0.012 X10*3/uL [facility] 10/20/2024 12:0 7 PM EST 10/20/2024 12:13 PM EST us Generic External Data Provider LAB BLOOD ORDERAB LES Final Result [facility] [address] [facility] [place] [phone] * CT Head w/o Contrast (10/20/2024 11:08 AM EST) Anatomical Region Laterality Modality Head, Neck Computed Tomogra phy 10/20/2024 11:0 8 AM EST Narrative 10/20/2024 12:07 PM EST ? [facility] ?[address] ?[place] [address] ? CT Scan Report ? Signed ? Patient: Andrew,Danika ?MR#: [id number] ?? 2 ? : 1965 ?Acct:[id number] ? Age/Sex: 59 / F ?ADM Date: 10/20/24 ? Loc: HO.ED ? Attending Dr: ? Ordering Physician: Barrett Chavira ?? Date of Service: 10/20/24 ?? Procedure(s): CT head/brain wo IV con ?? Accession Number(s): [id number] ? cc: Kadi Tomlin; Barrett Chavira ? Report Number: ?? [id number]: Total DLP = ??667.00 mGy-cm ?? EXAMINATION: ?? CT HEAD WITHOUT CONTRAST ? CLINICAL INFORMATION: ?? altered ? COMPARISON: ?? CT dated July 24, 2023 ? TECHNIQUE: ?? Contiguous axial imaging was performed from the skull base to vertex ?? without intravenous administration of contrast. ? This CT examination was performed using dose optimization techniques as ?? appropriate, variously including the following: ?? *Automated exposure control ?? *Adjustment of mA and/or kV according to patient size (this includes ?? techniques or standardized protocols for targeted exams where dose is ?? matched to indication/reason for exam; i.e. extremities or head) ?? *Use of iterative reconstruction technique ? DLP: ?? 667 mGy-cm ? FINDINGS: ?? No acute intracranial hemorrhage, mass effect, midline shift, ?? hydrocephalus or herniation. ?? Barrera-white matter differentiation is normal. ?? Posterior cranial fossa contents demonstrated no acute intracranial ?? hemorrhage or mass effect. ?? There is a 1.8 cm peripheral calcified low density lesion centered in ?? the pineal gland. ? Calcified plaques in the cavernous segments both ICAs. ?? Sellar/suprasellar region demonstrated no gross masses or hemorrhage. ?? Craniocervical junction is intact and normal. ? The bony calvarium is intact. ?? The skull base is intact. ?? Mucosal thickening, paranasal sinuses without air-fluid levels. ?? Tympanic cavities and mastoid air cells are aerated. ?? No gross masses or hematoma in the intraconal or extraconal ?? compartments of the orbits. ? CT/CT head/brain wo IV con ?? IMPRESSION: ?? No acute intracranial hemorrhage or acute brain abnormality by CT. ?? 1.8 cm partially calcified low density lesion, pineal gland. Stable. ? Electronically signed by: ??Jimmy Singh MD ??10/20/2024 12:04 PM ?? EST ? Dictated By: ?Jimmy Koroma MD ? Signed By: ?<Electronically signed by Jimmy Gooden MD in OV> ? 10/20/24 1204 ? DD/ 1108 ? TD/TT: 10/20/24 1144 ? Regional Climate Change Analyst: ? Procedure Note Maru Chahal - 10/20/[address] [place] [id number] [address] Scan Report Signed Patient: Koby Morales#: [id number] 2 : 1965Acct:[id number] Age/Sex: 59 / FADM Date: 10/20/24 Loc: HO.ED Attending Dr: Ordering Physician: Barrett Chavira Date of Service: 10/20/24 Procedure(s): CT head/brain wo IV con Accession Number(s): [id number] cc: Kadi Tomlin; Barrett Chavira Report Number: [id number]: Total DLP = 667.00 mGy-cm EXAMINATION: CT HEAD WITHOUT CONTRAST CLINICAL INFORMATION: altered COMPARISON: CT dated July 24, 2023 TECHNIQUE: Contiguous axial imaging was performed from the skull base to vertex without intravenous administration of contrast. This CT examination was performed using dose optimization techniques as appropriate, variously including the following: *Automated exposure control *Adjustment of mA and/or kV according to patient size (this includes techniques or standardized protocols for targeted exams where dose is matched to indication/reason for exam; i.e. extremities or head) *Use of iterative reconstruction technique DLP: 667 mGy-cm FINDINGS: No acute intracranial hemorrhage, mass effect, midline shift, hydrocephalus or herniation. Barrera-white matter differentiation is normal. Posterior cranial fossa contents demonstrated no acute intracranial hemorrhage or mass effect. There is a 1.8 cm peripheral calcified low density lesion centered in the pineal gland. Calcified plaques in the cavernous segments both ICAs. Sellar/suprasellar region demonstrated no gross masses or hemorrhage. Craniocervical junction is intact and normal. The bony calvarium is intact. The skull base is intact. Mucosal thickening, paranasal sinuses without air-fluid levels. Tympanic cavities and mastoid air cells are aerated. No gross masses or hematoma in the intraconal or extraconal compartments of the orbits. CT/CT head/brain wo IV con IMPRESSION: No acute intracranial hemorrhage or acute brain abnormality by CT. 1.8 cm partially calcified low density lesion, pineal gland. Stable. Electronically signed by: Jimmy Singh MD 10/20/2024 12:04 PM [facility] Dictated By: Jimmy Koroma MD Signed By: <Electronically signed by Jimmy Gooden MDin OV> 10/20/24 1204 DD/ 1108 TD/TT: 10/20/24 1144 Regional Climate Change Analyst: [facility] External Provider IMG CT PROCEDURES Final Result documented in this encounter Visit Diagnoses Not on filedocumented in this encounter Additional Health Concerns Assessment Noted Time PHQ-9 Depression Total Score: 15 //2 024 9:17 AM EDT documented as of this encounter Care Teams Client Care Representative Relationship Specialty Start Date End Date Kadi Tomlin MD [address] [place] [address] PCP - General Family Medicine 05/21/21 documented as of this encounter
--- OUTSIDE RECORDS SUMMARY | 2024-10-20 15:10 | XMS_ITS | Encounter Summary ---
Author Organization [employer] Address [address] [place] [address] [address] [place] [address] Care Team Providers Care Monomer Purification Operator Name Role Phone Kadi Tomlin MD Primary Care Provider Reason for Visit * Reason Comments Med Refill Encounter Details Date Type Department Care Team (Late st Contact Info) Description 03/25/2023 Refill [facility] MED & PEDS [address] [place] [address] Enoc Boles FNP Depressive disorder Social History Tobacco Use Types Packs/Day Years [...] Encounters Date Type Department Care Team (Late Contact Info) Description 11/04/2024 3:30 PM EST Procedure Visit [facility] [address] [place], [place] [phone] Kadi Tomlin MD [address] [place], [place] [phone] documented as of this encounter Visit Diagnoses Diagnosis Depressive disorder Depressive disorder, not elsewhere classified documented in this encounter Additional Health Concerns Assessment Noted Time PHQ-9 Depression Total Score: 9 01/09/20 23 9:12 AM EDT documented as of this encounter Care Teams Monomer Purification Operator Relationship Specialty Start Date End Date Kadi Tomlin MD [address] [place] [address] PCP - General Family Medicine 05/21/21 documented as of this encounter
--- OUTSIDE RECORDS SUMMARY | 2024-10-20 15:10 | XMS_ITS | Encounter Summary ---
Author Organization [employer] Address [address] [facility] [address] [place] [address] Care Team Providers Care Decatizer Name Role Phone Kadi Tomlni MD Primary Care Provider [phone] Reason for Visit * Reason Onset Date Comments Appointment Request 10/03/2024 Encounter Details Date Type Department Care Team ([facility] st Contact Info) Description 10/03/2024 Telephone [facility] MEDICINE [address] [place], [place] [phone] Esperanza Camacho [place] Appointment Request Social History Tobacco Use Types [...] encounter Miscellaneous Notes * Telephone Encounter - Esperanza Camacho MA - 10/03/2024 3:56 PM EST T/c placed to pt no show on 10/03/24 for pap pt was not able to come in. RS appt for 11/04/24 at 3:30pm documented in this encounter Plan of Treatment Upcoming Encounters Date Type Department Care Team (Late st Contact Info) Description 11/04/2024 3:30 PM EST Procedure Visit [facility] [address] [place] [address] Kadi Tomlin MD [address] [place] [address] documented as of this encounter Visit Diagnoses Not on filedocumented in this encounter Additional Health Concerns Assessment Noted Time PHQ-9 Depression Total Score: 15 024 9:17 AM EDT documented as of this encounter Care Teams Decatizer Relationship Specialty Start Date End Date Kadi Tomlin MD [address] [place] [address] PCP - General Family Medicine 05/21/21 documented as of this encounter
--- OUTSIDE RECORDS SUMMARY | 2024-10-20 15:10 | XMS_ITS | Encounter Summary ---
Author Organization [employer] Address [address] [place] [address] [address] [place] [address] Care Team Providers Care Project Officer Name Role Phone Kadi Tomlin MD Primary Care Provider [phone] Encounter Details Date Type Department Care Team (Late Contact Info) Description 06/19/2023 Orders Only [facility] MEDICINE [address] [place] [address] [phone] Kadi Tomlin MD [address] [place] [address] [phone] Social History Tobacco Use Types Packs/Day Years Used Date Smoking Tobacco: Never Passive Smoke Exposure: Never Smokeless Tobacco: Never Alcohol Use Standard Drinks/Week Comments Never 0 (1 standard drink = 0.6 oz pur e alcohol) Depression Answer Date Recorded Patient Health Questionnaire-9 Score 7 05/18/2023 Depression Answer Date Recorded Patient Health Questionnaire-2 Score 2 05/18/2023 Comments Unknown Sex and Gender Information Value Date Recorded Sex Assigned at Female 07/21/2022 10:14 AM EDT Legal Sex Female 10:14 AM EDT Gender Identity Female 07/21/2022 10:14 AM EDT Sexual Orientation Straight 07/21/2022 10 :14 AM EDT documented as of this encounter Plan of Treatment Upcoming Encounters Date Type Department Care Team (Late Contact Info) Description 11/04/2024 3:30 PM EST Procedure Visit [facility] [address] [place] [address] [phone] Kadi oTmlin MD [address] [place] [address] [phone] documented as of this encounter Visit Diagnoses Not on filedocumented in this encounter Additional Health Concerns Assessment Noted Time PHQ-9 Depression Total Score: 7 05/18/20 23 3:02 PM EDT documented as of this encounter Care Teams Project Officer Relationship Specialty Start Date End Date Kadi Tomlin MD [address] [place] [address] PCP - General Family Medicine 05/21/21 documented as of this encounter
--- OUTSIDE RECORDS SUMMARY | 2024-10-20 15:10 | XMS_ITS | Encounter Summary ---
Author Organization [employer] Address [address] [facility] [address] [place] [address] Care Team Providers Care Die Sizer Name Role Phone Kadi Tomlin MD Primary Care Provider [phone] Reason for Visit * Reason Onset Date Comments Nurse Triage 04/05/2024 Encounter Details Date Type Department Care Team ([facility] st Contact Info) Description 04/05/2024 Telephone [facility] MEDICINE [address] [place], [place] [phone] Kadi Tomlin MD [address] [place], [place] [phone] Nurse Triage Social History Tobacco Use Types Packs/Day Years [...] encounter Miscellaneous Notes * Telephone Encounter - Lula Swann RN - 04/05/2024 12:14 PM EDT Triage call with [employer] Printer Operator [place] [id number] Pt reports low blood pressure of 106/80 with HR 115. Pt reports taking BP / heart meds daily. lisinopril 40mg daily, clonidine 0.1mg daily, procardia XL 30mg daily, inderal 40mg 2x/day and HCTZ 24mg daily. Pt is drinking only 3 bottles of water daily and coffee in the morning. Pt reports feeling very week. Pt does live up stairs and is able to climb the stairs without a problem. Pt is calling dueto headache and thought BP was high. Pt reports the headache is not going away and has had this fordays. Pt is advised to come to [facility] today to be seen by provider and Pt agrees with this disposition. Pt insurance is verified as active. Protocol Used: Blood Pressure - Low (Adult) Protocol-Based Disposition: See in Office or Video Visit Today Positive Triage Question: * Systolic BP 90-110 while taking blood pressure medications and NOT dizzy, lightheaded or weak * All higher-acuity triage questions were negative Care Advice Discussed: * Reassurance and Education - Low Blood Pressure * Fall Prevention * Reasons To Call Back - Lightheadedness, weakness, or dizziness occurs - Systolic BP under 90 - You feel sick - You become worse * Telephone Encounter - Jay Harry - 04/05/2024 11:57 AM EDT Symptoms: High Blood Pressure - Caller Reports, Heartbeat Symptoms (Fast, Slow, or Irregular) Outcome: Talk to a nurse or provider within 15 minutes Reason: Severe headache The caller accepted this outcome Please contact pt @ [phone] [place] Speaker documented in this encounter Plan of Treatment Upcoming Encounters Date Type Department Care Team (Late st Contact Info) Description 11/04/2024 3:30 PM EST Procedure Visit [facility] MEDICINE [address] [place] [address] Kadi Tomlin MD [address] [place] [address] documented as of this encounter Visit Diagnoses Not on filedocumented in this encounter Additional Health Concerns Assessment Noted Time PHQ-9 Depression Total Score: 15 024 9:17 AM EDT documented as of this encounter Care Teams Die Sizer Relationship Specialty Start Date End Date Kadi Tomlin MD [address] [place], [place] [phone] PCP - General Family Medicine 05/21/21 documented as of this encounter
--- OUTSIDE RECORDS SUMMARY | 2024-10-20 15:10 | XMS_ITS | Encounter Summary ---
Author Organization [employer] Address [address] [place] [address] Care Team Providers Care Electromatic Typist Name Role Phone Kadi Tomlin MD Primary Care Provider [phone] Encounter Details Date Type Department Care Team (Late st Contact Info) Description 08/17/2023 Abstract [facility] [address], [place] [phone] Denisse Castillo Social History Tobacco Use Types Packs/Day Years Used Date Smoking Tobacco: Never Passive Smoke Exposure: Never Smokeless Tobacco: Never Alcohol Use Standard Drinks/Week Comments Never 0 (1 standard drink = 0.6 oz pur e alcohol) Depression Answer Date Recorded Patient Health Questionnaire-9 Score 9 07/20/2023 Patient Health Questionnaire-9 Score 9 07/20/2023 Last PHQ-9: Questionnaire Data Not on file 1 Housing Stability Answer Date Recorded What is your housing situation today? I have mateo woo 06/30/[address] you li ve. Do you have problems with any of the following? Mold 06/30/2023 Food Insecurity Answer Date Recorded Within the past 12 months, y ou worried that your food would run out before you got money to buy more: Never True 07/07/2023 Within the past 12 months,th e food you bought just didn't last and you didn't have enough money to get more: Never True Transportation Answer Date Recorded In the past 12 months, has l ack of transportation kept you from medical appts, meetings, work or from getting things needed for daily living? No 07/07/2023 Utilities Answer Date Recorded In the past 12 months, has t he electric, gas, oil or water company threatened to shut off services in your home? No 07/07/2023 Depression Answer Date Recorded Patient Health Questionnaire-2 Score 2 07/20/2023 Comments Unknown Sex and Gender Information Value [...] Description 11/04/2024 3:30 PM EST Procedure Visit [facility] [address] [place] [address] Kadi Tomlin MD [address] [place] [address] documented as of this encounter Visit Diagnoses Not on filedocumented in this encounter Additional Health Concerns Assessment Noted Time PHQ-9 Depression Total Score: 9 07/20/20 23 2:18 PM EDT documented as of this encounter Care Teams Electromatic Typist Relationship Specialty Start Date End Date Kadi Tomlin MD [address] [place], [place] [phone] PCP - General Family Medicine 05/21/21 documented as of this encounter
--- OUTSIDE RECORDS SUMMARY | 2024-10-20 15:10 | XMS_ITS | Encounter Summary ---
Author Organization [employer] Address [address] [place] [address] [address] [place] [address] Care Team Providers Care Strategy Associate Name Role Phone Kadi Tomlin MD Primary Care Provider [phone] Encounter Details Date Type Department Care Team (Late st Contact Info) Description 05/28/2023 Orders Only [facility] [address] [place] [phone] ProviderTracey MD Social History Tobacco Use Types Packs/Day Years [...] Description 11/04/2024 3:30 PM EST Procedure Visit [facility] [address] [place] [address] Kadi Tomlin MD [address] [place] [phone] documented as of this encounter Procedures Procedure Name Priority Date/Time Associated Diagnosis Comments HM COLONOSCOPY Routine 09/07/2018 documented in this encounter Results * Hm Colonoscopy (09/07/2018) us Historical Provider HEALTH MAINTENANCE Final Result documented in this encounter Visit Diagnoses Not on filedocumented in this encounter Additional Health Concerns Assessment Noted Time PHQ-9 Depression Total Score: 7 05/18/20 23 3:02 PM EDT documented as of this encounter Care Teams Strategy Associate Relationship Specialty Start Date End Date Kadi Tomlin MD [address] [place] [phone] PCP - General Family Medicine 05/21/21 documented as of this encounter
--- OUTSIDE RECORDS SUMMARY | 2024-10-20 15:10 | XMS_ITS | Clinical Summary ---
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 [facility] 10/20/2024 12:0 7 PM EST 10/20/2024 12:13 PM EST Generic External Data Provider LAB BLOOD ORDERAB LES Final Result Performing Organization Address [facility] Co de Phone Number [facility] [address] [place] [address] [phone] * Prothrombin Time-INR (10/20/2024 12:07 PM EST) Prothrombin Time 11.4 10.9 - 12.4 SEC [facility] INTERNATIONAL NORM RATIO 1.0 0.9 - 1.1 [facility] Comment:INTERNATIONAL NORMAL IZED RATIO (INR) REFERENCE [...] ORDERAB LES Final Result Performing Organization Address [facility] Co de Phone Number [facility] [address] [place] [address] [phone] * Lipase (10/20/2024 12:07 PM EST) Lipase 13 8 - 78 U/L [facility] 10/20/2024 12:0 7 PM EST 10/20/2024 12:13 PM EST us Generic External Data Provider LAB BLOOD ORDERAB LES Final Result Performing Organization Address [facility] Co de Phone Number [facility] [address] [place] [address] [phone] * Creatine Kinase, Total (10/20/2024 12:07 PM EST) Creatine Kinase Total 105 26 - 140 U/L [facility] 10/20/2024 12:0 7 PM EST 10/20/2024 12:13 PM EST us Generic External Data Provider LAB BLOOD ORDERAB LES Final Result Performing Organization Address [facility] de Phone Number [facility] [address] [place] [address] [phone] * Ammonia, Plasma (10/20/2024 12:07 PM EST) Pathologist [facility] Ammonia (P) 29 13 - 55 umol/L [facility] 10/20/2024 12:0 7 PM EST 10/20/2024 12:13 PM EST Generic External Data Provider LAB BLOOD ORDERAB LES Final Result Performing Organization Address [facility] de Phone Number [facility] [address] [place] [address] [phone] * (ABNORMAL) Comprehensive Metabolic Panel (10/20/2024 12:07 PM EST) Sodium 142 135 - 145 mmol/L [facility] Potassium 4.0 3.3 - 5.1 mmol/L [facility] Chloride 109(H) 96 - 108 mmol/L [facility] Carbon Dioxide 26 22 - 29 mmol/L [facility] Anion Gap 11(L) 12 - 20 [facility] Urea Nitrogen (BUN) 13 9 - 16 mg/dL [facility] Creatinine, Serum 0.70 0.5 - 1.4 mg/dL [facility] Creatinine Clr Calc Pharmacy 84.6 [facility] Comment:Provided height and weight: 160.02 cm,72.575 kg.eGFR (calculated from the MDRD study equation) and eCrCl(calculated from the Cockcroft-Gault equation) are based ondifferent parameters and may not yield comparable results.If eCrCl result is absurd, please check patient'sheight/weight. Estimated Glomerular Filt Rate >60 [facility] Comment:Chronic Kidney Disea se: Estimated GFR < 60 mL/min/1.05y4Katngz Kidney Disease: Estimated GFR < 15 mL/min/1.73m2 Glucose 98 60 - 115 mg/dL [facility] Calcium 9.6 8.4 - 10.2 mg/dL [facility] Bilirubin, Total 0.2 0.0 - 1.0 mg/dL [facility] Aspartate Amino Transferase 27 5 - 31 U/L [facility] Alanine Aminotransferase 23 0 - 31 U/L [facility] Total Protein 7.5 6.5 - 8.0 g/dL [facility] Albumin Level 3.8 3.5 - 5.0 g/dL [facility] Alkaline Phosphatase 115 39 - 117 U/L [facility] 10/20/2024 12:0 7 PM EST 10/20/2024 12:13 PM EST us Generic External Data Provider LAB BLOOD ORDERAB LES Final Result Performing Organization Address City/State/[facility] Co de Phone Number [facility] [address] [place] [phone] * CT Head w/o Contrast (10/20/2024 11:08 AM EST) Anatomical Region Laterality Modality Head, Neck Computed Tomogra phy 10/20/2024 11:0 8 AM EST Narrative 10/20/2024 12:07 PM EST ? [facility] ?[address] ?[place] [address] ? CT Scan Report ? Signed ? Patient: Andrew,Danika ?MR#: [id number] ?? 2 ? : 1965 ?Acct:[id number] ? Age/Sex: 59 / F ?ADM Date: 10/20/24 ? Loc: HO.ED ? Attending Dr: ? Ordering Physician: Barrett Chavira ?? Date of Service: 10/20/24 ?? Procedure(s): CT head/brain wo IV con ?? Accession Number(s): [id number] ? cc: Kadi Tomlin; Barrett Chavira ? Report Number: ?? [id number]: Total DLP = ??667.00 mGy-cm ?? EXAMINATION: [...] Singh MD ??10/20/2024 12:04 PM ?? EST RP ? Dictated By: ?Jimmy Koroma MD ? Signed By: ?<Electronically signed by Jimmy Gooden MD in OV> ? 10/20/24 1204 ? DD/ 1108 ? TD/TT: 10/20/24 1144 ? Strategic Accounts Manager: ? Procedure Note Donximenafloydmateoter, Image - 10/20/[address] [place] [address] [address] Scan Report Signed Patient: Koby Morales#: [id number] 2 : 1965Acct:[id number] Age/Sex: 59 / FADM Date: 10/20/24 Loc: HO.ED Attending Dr: Ordering Physician: Barrett Chavira Date of Service: 10/20/24 Procedure(s): CT head/brain wo IV con Accession Number(s): [id number] cc: Kadi Tomlin; Barrett Chavira Report Number: [id number]: Total DLP = 667.00 mGy-cm EXAMINATION: CT [...] by: Jimmy Singh MD 10/20/2024 12:04 PM EST RP Dictated By: Jimmy Koroma MD Signed By: <Electronically signed by Jimmy Gooden MDin OV> 10/20/24 1204 DD/ 1108 TD/TT: 10/20/24 1144 Strategic Accounts Manager: [facility] External Provider IMG CT PROCEDURES Final Result * BI Mammogram Screening Tomosynthesis Bilateral (07/14/2023 3:15 PM EDT) Anatomical Region Laterality Modality Breast Bilateral Mammography 07/14/2023 3:15 PM EDT Narrative 08/01/2023 1:28 PM EST ? [facility] [place] ? [address] ?[place] [id number] ? Mammography Report ? Signed ? Patient: Andrew,Danika ?MR#: [id number] ?? 2 ? : 1965 ?Acct:[id number] ? Age/Sex: 57 / F ?ADM Date: 10/24/23 ? Loc: HO.MAMMO ? Attending Dr: Kadi Tomlin MD ? Ordering Physician: Kadi Tomlin ?Results: 1Negative ? Date of Service: 07/14/23 ?Follow Up: 1 Year From Orig ?? inal Mammogram ? Procedure(s): MM tomosynthesis screening BI ?? Accession Number(s): [id number] ? cc: Kadi Tomlin ? EXAMINATION: ?? MM SCREENING DIGITAL BREAST TOMOSYNTHESIS, BILATERAL ? CLINICAL INFORMATION: ? Screening. Asymptomatic. ? COMPARISON: ?? Mammography: This study is compared with prior exams dating back to ?? 2016. ? TECHNIQUE: ?? Digital breast tomosynthesis is performed in both the craniocaudal and ?? mediolateral oblique views along with computer-aided detection (CAD). ?? Synthesized 2D images are generated from the tomosynthesis. ? FINDINGS: ?? There are scattered areas of fibroglandular density (ACR BI-RADS breast ?? composition Category b). ? There are no significant masses, abnormal calcifications, or other ?? abnormalities. ? MM/MM tomosynthesis screening BI ?? IMPRESSION: ?? No mammographic evidence of malignancy. ? ASSESSMENT: ? BI-RADS BI-RADS 1 - Negative ? RECOMMENDATION: ?? Routine annual mammography screening. ? 1 year F/U ? This examination should not preclude the clinical evaluation of a ?? suspicious palpable abnormality. ? This patient's information was entered into a reminder system with a ?? target due date for their next mammogram. ? Dictated By: ?Petrona Majano MD ? Signed By: ?<Electronically signed by Petrona Majano MD in OV> ? 11/11/23 1324 ? DD/ 1515 ? TD/TT: ? Strategic Accounts Manager: ? Procedure Note Donotuseinterpreter, Image - [facility] [address] [place], [place] [address] Mammography Report Signed Patient: Koby Morales#: [id number] 2 : 1965Acct:[id number] Age/Sex: 57 / FADM Date: 07/14/23 Loc: MAMMEddie Attending Dr: Kadi Tomlin MD Ordering Physician: Khadar Tomlinults: 1Negative Date of Service: 07/14/23Follow Up: 1 Year From Orig inal Mammogram Procedure(s): MM tomosynthesis screening BI Accession Number(s): [id number] cc: Kadi Tomlin EXAMINATION: MM SCREENING DIGITAL BREAST TOMOSYNTHESIS, BILATERAL CLINICAL INFORMATION: Screening. Asymptomatic. COMPARISON: Mammography: This study is compared with prior exams dating back to 2017. TECHNIQUE: Digital breast tomosynthesis is performed in both the craniocaudal and mediolateral oblique views along with computer-aided detection (CAD). Synthesized 2D images are generated from the tomosynthesis. FINDINGS: There are scattered areas of fibroglandular density (ACR BI-RADS breast composition Category b). There are no significant masses, abnormal calcifications, or other abnormalities. MM/MM tomosynthesis screening BI IMPRESSION: No mammographic evidence of malignancy. ASSESSMENT: BI-RADS BI-RADS 1 - Negative RECOMMENDATION: Routine annual mammography screening. 1 year F/U This examination should not preclude the clinical evaluation of a suspicious palpable abnormality. This patient's information was entered into a reminder system with a target due date for their next mammogram. Dictated By: Petrona Majano MD Signed By: <Electronically signed by Petrona Majano MD in OV> 08/01/23 1324 DD/ 1515 TD/TT: Strategic Accounts Manager: us Kadi Tomlin MD IMG BI PROCEDURES Edited Resul t - Final * HIV 1/2 ANTIGEN/ANTIBODY,FOURTH GENERATION W/RFL (08/21/2020 11:31 AM EST) HIV-1/2 ANTIGEN AND ANTIBODIES, 4TH GENERATION W/ REFLEX NON-REACT DINORA NON-REACT DINORA [facility] Comment: HIV-1 antigen and HIV-1/HIV-2 antibodies were not detected. There is no laboratory evidence of HIV infection. ?? PLEASE NOTE: This information has been disclosed to you from records whose confidentiality may be protected by state law. ??If your state requires such protection, then the state law prohibits you from making any further disclosure of the information without the specific written consent of the person to whom it pertains, or as otherwise permitted by law. A general authorization for the release of medical or other information is NOT sufficient for this purpose. ? For additional information please refer to http://10sec.[employer]/faq/AOL596 (This link is being provided for informational/ educational purposes only.) ? The performance of this assay has not been clinically validated in patients less than 2 years old. ?? HIV-1/2 ANTIGEN AND ANTIBODIES, 4TH GENERATION W/ REFLEX NON-REACT DINORA NON-REACT DINORA [facility] Comment: HIV-1 antigen and HIV-1/HIV-2 antibodies were not detected. There is no laboratory evidence of HIV infection. ?? PLEASE NOTE: This information has been disclosed to you from records whose confidentiality may be protected by state law. ??If your state requires such protection, then the state law prohibits you from making any further disclosure of the information without the specific written consent of the person to whom it pertains, or as otherwise permitted by law. A general authorization for the release of medical or other information is NOT sufficient for this purpose. ? For additional information please refer to http://10sec.[employer]/faq/HOK813 (This link is being provided for informational/ educational purposes only.) ? The performance of this assay has not been clinically validated in patients less than 2 years old. ?? 08/21/2020 11:3 1 AM EST us Shantelle Adame MD LAB BLOOD ORDERABLES Final Re sult [facility] [address] * (ABNORMAL) LIPID PANEL, STANDARD (08/21/2020 11:31 AM EST) [facility] Signature Chol/HDLC Ratio 3.8 <5.0 (calc) [facility] Cholesterol, Total 228(H) <200 mg/dL [facility] HDL Cholesterol 60 > OR = 50 mg/dL [facility] LDL Cholesterol 139(H) mg/dL (calc) [facility] Comment: Reference range: <100 ?? Desirable range <100 mg/dL for primary prevention; ?? <70 mg/dL for patients with CHD or diabetic patients ?? with > or = 2 CHD risk factors. ?? LDL-C is now calculated using the Alistair-Perez ?? calculation, which is a validated novel method providing ?? better accuracy than the Friedewald equation in the ?? estimation of LDL-C. ?? Alistair SS et al. CANDI. 2013;310(19): 1462-0997 ?? (http://10sec.Baitianshi/faq/UNT756) Non-HDL Cholesterol 168(H) <130 mg/dL (calc) [facility] Comment: For patients with diabetes plus 1 major ASCVD risk ?? factor, treating to a non-HDL-C goal of <100 mg/dL ?? (LDL-C of <70 mg/dL) is considered a therapeutic ?? option. Triglycerides 156(H) <150 mg/dL [facility] Chol/HDLC Ratio 3.8 <5.0 (calc) [facility] Cholesterol, Total 228(H) <200 mg/dL [facility] HDL Cholesterol 60 > OR = 50 mg/dL [facility] LDL Cholesterol 139(H) mg/dL (calc) [facility] Comment: Reference range: <100 ?? Desirable range <100 mg/dL for primary prevention; ?? <70 mg/dL for patients with CHD or diabetic patients ?? with > or = 2 CHD risk factors. ?? LDL-C is now calculated using the Alistair-Perez ?? calculation, which is a validated novel method providing ?? better accuracy than the Friedewald equation in the ?? estimation of LDL-C. ?? Alistair SS et al. CANDI. 2013;310(19): 5272-0296 ?? (http://10sec.B[employer]ianshi/faq/TDY858) Non-HDL Cholesterol 168(H) <130 mg/dL (calc) [facility] Comment: For patients with diabetes plus 1 major ASCVD risk ?? factor, treating to a non-HDL-C goal of <100 mg/dL ?? (LDL-C of <70 mg/dL) is considered a therapeutic ?? option. Triglycerides 156(H) <150 mg/dL [facility] Chol/HDLC Ratio 3.8 <5.0 (calc) [facility] Cholesterol, Total 228(H) <200 mg/dL [facility] HDL Cholesterol 60 > OR = 50 mg/dL [facility] LDL Cholesterol 139(H) mg/dL (calc) [facility] Comment: Reference range: <100 ?? Desirable range <100 mg/dL for primary prevention; ?? <70 mg/dL for patients with CHD or diabetic patients ?? with > or = 2 CHD risk factors. ?? LDL-C is now calculated using the Leander ?? calculation, which is a validated novel method providing ?? better accuracy than the Friedewald equation in the ?? estimation of LDL-C. ?? Alistair DELAROSA et al. CANDI. 2013;310(19): 0570-6404 ?? (http://education.O[employer]Wise.Par[employer]itX/faq/AQK665) Non-HDL Cholesterol 168(H) <130 mg/dL (calc) [facility] Comment: For patients with diabetes plus 1 major ASCVD risk ?? factor, treating to a non-HDL-C goal of <100 mg/dL ?? (LDL-C of <70 mg/dL) is considered a therapeutic ?? option. Triglycerides 156(H) <150 mg/dL [facility] 08/21/2020 11:3 1 AM EST us Shantelle Adame MD LAB BLOOD ORDERABLES Final Re sult [facility] [address] * Colonoscopy (09/07/2018) us Historical Provider HEALTH MAINTENANCE Final Result * HPV mRNA E6/E7 (07/02/2017 10:45 AM EDT) HPV mRNA E6/E7 Not Detected NOT DETECTED [facility] Comment: This test was performed using the APTIMA(R) HPV Assay ([employer] This assay detects E6/E7 viral messenger RNA (mRNA) from 14 high-risk HPV types (16,18,31,33,35,39,45,51, 52,56,58,59,66,68). For additional information please refer to: http://education.[employer]/faq/BHB404m0 (This link is being provided for informational/ educational purposes only.) Test Performed by [employer], [facility], [address] [place] [id number] Ector Landeros M.D., Ph.D., Director of Laboratories , [facility] [id number] Please note: ??Effective 06/02/2016, HPV testing will be performed using [employer]'s APTIMA test which targets mRNA. Detecting mRNA instead of DNA, as in older methods, offers significant improvements in specificity. 07/02/2017 10:4 5 AM EDT [facility]ISTORICAL/NON ORDERABLE LAB[facility] Final Result [facility] [address] from Last 3 Months or Most Recently Relevant to Health Maintenance Insurance [facility] C3 Care Teams Bed Laborer Relationship Specialty Start Date End Date Kadi Tomlin MD [address] [place] [address] [place] [id number] PCP - General Family Medicine 05/21/21
--- OUTSIDE RECORDS SUMMARY | 2024-10-20 15:10 | XMS_ITS | Clinical Summary ---
Author Organization [facility] Address [address] [place] [address] Care Team Providers Care Yarn Inspector Name Role Phone Unavailable Primary Care Provider Unavailabl e Source Comments PLEASE NOTE, if this patient is a minor, it may be UNLAWFUL to discuss sensitive information that is contained in these records (such as FAMILY PLANNING, MENTAL HEALTH or SUBSTANCE ABUSE) with the minor patient's parent or other person without the patient's specific authorization.[facility] Social History Tobacco Use Types Packs/Day Years Used Date Smoking Tobacco: Never Assessed Social Connections Answer Date Recorded Connectedness 0 06/07/2024 Financial Resource Strain Answer Date R ecorded Financial Resource Strain 0 2023 Stress Answer Date Recorded Stress 0 04/28/2024 Physical Activity Answer Date Recorded Physical Activity 0 04/28/2024 Food Insecurity Answer Date Recorded Food 0 06/16/2024 Transportation Needs Answer Date Record ed Transportation 0 04/28/2024 Housing Stability Answer Date Recorded Housing 0 04/28/2024 Safety and Environment Answer Date Gilles rded Safety 0 04/28/2024 Utilities Answer Date Recorded Utilities 0 04/28/2024 Employment Answer Date Recorded Stress 0 06/07/2024 Comments Unknown Sex and Gender Information Value Date Recorded Sex Assigned at Not on file Legal Sex Female 5:07 AM PDT Gender Identity Not on file Sexual Orientation Not on file Plan of Treatment Health Maintenance Due Date Last Done Comments HPV Screening 1965 Hepatitis C Screening 1965 Pap + HPV 1965 Tobacco Screening 1965 Hypertension Screening (#1) 1985 Cervical Cancer Screening 1988 Pap Smear 1988 Breast Cancer Screening (Mammogram) 2007 CT Colonography 2012 Colonoscopy 2012 Colorectal Cancer Screening 2012 FIT/gFOBT 2012 Fecal DNA 2012 Flexible Sigmoidoscopy 2012 [id number]-[id number]-13 ( season) 2024 05/05/2022, 11/18/2021, 05/29/2021, Additional history exists Imm-Influenza (#1) 2024 06/24/2023, 0 09/29/2022, 07/27/2022, Additional history exists Alcohol and Drug Screen 09/21/2024 Depression Annual Screen 09/21/2024 Lipid Screening 08/21/2025 08/21/2020 Diabetes Screening 08/04/2026 08/04/2023 Imm-DTaP/Tdap/Td (3 - Td or Tdap) 11/18/2031 11/18/2021, 07/23/2011, 08/31/1998 Imm-Hepatitis B Completed 12/01/2005, 10/22, 11/02/2000, Additional history exists Imm-Zoster, Recombinant Completed 07/09/2020, 11/14 HIV Screening Completed 08/21/2020, 08/21/2020 Cervical Ablation/Cold-Knife Conization Discontinued Cervical Cryotherapy Discontinued Colposcopy Discontinued Endometrial Biopsy Discontinued Excision/Leep Discontinued HPV Genotyping Discontinued Vaginal Pap Discontinued Vulvoscopy Discontinued Insurance [place]
--- OUTSIDE RECORDS SUMMARY | 2024-10-20 15:10 | XMS_ITS | Encounter Summary ---
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 No / Unsure 11/24/2022 3:29 PM EST documented as of this encounter Miscellaneous Notes * Result Encounter Note - Kadi Tomlin MD - 11/28/2022 12:25 PM EST Please let patient know that her xrays showed no fracture in L shoulder, elbow, or wrist. This is great news! Is she in physical therapy yet for her leg fracture? documented in this encounter Plan of Treatment Upcoming Encounters Date Type Department Care Team (Late st Contact Info) Description 11/04/2024 3:30 PM EST Procedure Visit [facility] [address] [facility] [place] [address] Kadi Tomlin MD [address] [place] [address] documented as of this encounter Procedures Procedure Name Priority Date/Time Associated Diagnosis Comments XR WRIST 3+ VIEWS LEFT Routine 12/10/2022 10:48 AM EDT XR ELBOW 1-2 VIEWS LEFT Routine 12/10/2022 10:48 AM EDT XR SHOULDER 2+ VIEWS LEFT Routine 12/10/2022 10:48 AM EDT documented in this encounter Results * XR Wrist 3+ Views Left (12/10/2022 10:48 AM EDT) Anatomical Region Laterality Modality Upper Extremities, Wrist Left Radiogr aphic Imaging 12/10/2022 10:4 8 AM EDT Narrative 12/17/2022 8:44 AM EDT ? [facility] ?[address] ?[place] [id number] ?XRay Report ? Signed ? Patient: Andrew,Danika ?MR#: [id number] ?? 2 ? : 1965 ?Acct:[id number] ? Age/Sex: 57 / F ?ADM Date: 03/22/23 ? Loc: HO.XRAY ? Attending Dr: Kadi Tomlin MD ? Ordering Physician: Kadi Tomlin ?? Date of Service: 12/10/22 ?? Procedure(s): XR wrist LT min 3V ?? Accession Number(s): [id number] ? cc: aKdi Tolmin ? EXAMINATION: ?? XR ELBOW, LEFT ?? XR WRIST, LEFT ?? XR SHOULDER, LEFT ? CLINICAL INDICATION: ?? Pain. ? COMPARISON: ?? Left wrist 09/11/2021. ? TECHNIQUE: ?? Left wrist 4 views. Left shoulder 4 views. Left elbow 3 views. ? FINDINGS: ? LEFT WRIST: There is no visible acute fracture, dislocation or ?? subluxation. No bony erosive changes. The soft tissues are normal. ? LEFT ELBOW: There is no visible acute fracture, dislocation or ?? subluxation seen. No bony erosive changes. There is no joint effusion ?? seen. ? LEFT SHOULDER: There is no acute fracture, dislocation subluxation. The ?? glenohumeral and AC joints are maintained and normal. The soft tissues ?? are normal. ? XR/XR wrist LT min 3V ?? IMPRESSION: ?? Unremarkable left wrist exam. ? Unremarkable left elbow exam. ? Unremarkable left shoulder exam. ? Dictated By: ?Nick Chino MD ? Signed By: ?<Electronically signed by Nick Chino MD in OV> ?12/17/22 0841 ? DD/ 1048 ? TD/TT: ? Rigger Third: MSM ? Procedure Note Fela, Image - 01/05/2023 [place] [address] XRay Report Signed Patient: Koby Morales#: [id number] 2 : 1965Acct:[id number] Age/Sex: 57 / FADM Date: 12/10/22 Loc: RAYO Attending Dr: Kadi Tomlin MD Ordering Physician: Kadi Tomlin Date of Service: 12/10/22 Procedure(s): XR wrist LT min 3V Accession Number(s): [id number] cc: Kadi Tomlin EXAMINATION: XR ELBOW, LEFT XR WRIST, LEFT XR SHOULDER, LEFT CLINICAL INDICATION: Pain. COMPARISON: Left wrist 09/11/2021. TECHNIQUE: Left wrist 4 views. Left shoulder 4 views. Left elbow 3 views. FINDINGS: LEFT WRIST: There is no visible acute fracture, dislocation or subluxation. No bony erosive changes. The soft tissues are normal. LEFT ELBOW: There is no visible acute fracture, dislocation or subluxation seen. No bony erosive changes. There is no joint effusion seen. LEFT SHOULDER: There is no acute fracture, dislocation subluxation. The glenohumeral and AC joints are maintained and normal. The soft tissues are normal. XR/XR wrist LT min 3V IMPRESSION: Unremarkable left wrist exam. Unremarkable left elbow exam. Unremarkable left shoulder exam. Dictated By: Nick Chino MD Signed By: <Electronically signed by Nick Chino MD in OV> 12/17/22 0841 DD/ 1048 TD/TT: Rigger Third: [place] us [facility] External Provider IMG XR PROCEDURES Final Result * XR Elbow 1-2 Views Left (12/10/2022 10:48 AM EDT) Anatomical Region Laterality Modality Upper Extremities, Elbow Left Radiogr aphic Imaging 12/10/2022 10:4 8 AM EDT Narrative 12/17/2022 8:44 AM EDT ? [facility] ?[address] ?[place] [address] ?XRay Report ? Signed ? Patient: Danika Moraels ?MR#: [id number] ?? 2 ? : 1965 ?Acct:[id number] ? Age/Sex: 57 / F ?ADM Date: 12/10/22 ? Loc: HO.XRAY ? Attending Dr: Kadi Tomlin MD ? Ordering Physician: Kadi Tomlin ?? Date of Service: 12/10/22 ?? Procedure(s): XR elbow LT 2V ?? Accession Number(s): [id number] ? cc: Kadi Tomlin ? EXAMINATION: ?? XR ELBOW, LEFT ?? XR WRIST, LEFT ?? XR SHOULDER, LEFT ? CLINICAL INDICATION: ?? Pain. ? COMPARISON: ?? Left wrist 09/11/2021. ? TECHNIQUE: ?? Left wrist 4 views. Left shoulder 4 views. Left elbow 3 views. ? FINDINGS: ? LEFT WRIST: There is no visible acute fracture, dislocation or ?? subluxation. No bony erosive changes. The soft tissues are normal. ? LEFT ELBOW: There is no visible acute fracture, dislocation or ?? subluxation seen. No bony erosive changes. There is no joint effusion ?? seen. ? LEFT SHOULDER: There is no acute fracture, dislocation subluxation. The ?? glenohumeral and AC joints are maintained and normal. The soft tissues ?? are normal. ? XR/XR elbow LT 2V ?? IMPRESSION: ?? Unremarkable left wrist exam. ? Unremarkable left elbow exam. ? Unremarkable left shoulder exam. ? Dictated By: ?Nick Chino MD ? Signed By: ?<Electronically signed by Nick Chino MD in OV> ?12/17/2241 ? DD/ 1048 ? TD/TT: ? Rigger Third: MSM ? Procedure Note Jeffreyximenaindira, Image - 12/17/2022 [place] [address] XRay Report Signed Patient: Koby Morales#: [id number] 2 : 1965Acct:[id number] Age/Sex: 57 / FADM Date: 12/10/22 Loc: HO.XRAY Attending Dr: Kadi Tomlin MD Ordering Physician: Kadi Tomlin Date of Service: 12/10/22 Procedure(s): XR elbow LT 2V Accession Number(s): [id number] cc: Kadi Tomlin EXAMINATION: XR ELBOW, LEFT XR WRIST, LEFT XR SHOULDER, LEFT CLINICAL INDICATION: Pain. COMPARISON: Left wrist 09/11/2021. TECHNIQUE: Left wrist 4 views. Left shoulder 4 views. Left elbow 3 views. FINDINGS: LEFT WRIST: There is no visible acute fracture, dislocation or subluxation. No bony erosive changes. The soft tissues are normal. LEFT ELBOW: There is no visible acute fracture, dislocation or subluxation seen. No bony erosive changes. There is no joint effusion seen. LEFT SHOULDER: There is no acute fracture, dislocation subluxation. The glenohumeral and AC joints are maintained and normal. The soft tissues are normal. XR/XR elbow LT 2V IMPRESSION: Unremarkable left wrist exam. Unremarkable left elbow exam. Unremarkable left shoulder exam. Dictated By: Nick Chino MD Signed By: <Electronically signed by Nick Chino MD in OV> 12/17/22 0841 DD/ 1048 TD/TT: Rigger Third: [place] us [facility] External Provider IMG XR PROCEDURES Final Result * XR Shoulder 2+ Views Left (12/10/2022 10:48 AM EDT) Anatomical Region Laterality Modality Upper Extremities, Shoulder Left Radi ographic Imaging 12/10/2022 10:4 8 AM EDT Narrative 12/17/2022 8:44 AM EDT ? [facility] ?[address] ?[place] [address] ?XRay Report ? Signed ? Patient: Andrew,Danika ?MR#: [id number] ?? 2 ? : 1965 ?Acct:[id number] ? Age/Sex: 57 / F ?ADM Date: 12/10/22 ? Loc: HO.XRAY ? Attending Dr: Kadi Tomlin MD ? Ordering Physician: Kadi Tomlin ?? Date of Service: 12/10/22 ?? Procedure(s): XR shoulder LT min 2V ?? Accession Number(s): [id number] ? cc: Kadi Tomlin ? EXAMINATION: ?? XR ELBOW, LEFT ?? XR WRIST, LEFT ?? XR SHOULDER, LEFT ? CLINICAL INDICATION: ?? Pain. ? COMPARISON: ?? Left wrist 09/11/2021. ? TECHNIQUE: ?? Left wrist 4 views. Left shoulder 4 views. Left elbow 3 views. ? FINDINGS: ? LEFT WRIST: There is no visible acute fracture, dislocation or ?? subluxation. No bony erosive changes. The soft tissues are normal. ? LEFT ELBOW: There is no visible acute fracture, dislocation or ?? subluxation seen. No bony erosive changes. There is no joint effusion ?? seen. ? LEFT SHOULDER: There is no acute fracture, dislocation subluxation. The ?? glenohumeral and AC joints are maintained and normal. The soft tissues ?? are normal. ? XR/XR shoulder LT min 2V ?? IMPRESSION: ?? Unremarkable left wrist exam. ? Unremarkable left elbow exam. ? Unremarkable left shoulder exam. ? Dictated By: ?Nick Chino MD ? Signed By: ?<Electronically signed by Nick Chino MD in OV> ?12/17/22 0841 ? DD/ 1048 ? TD/TT: ? Rigger Third: [place] ? Procedure Note Donotsolomonter, Image - 12/17/[address] [address] XRay Report Signed Patient: Koby Morales#: [id number] 2 : 1965Acct:[id number] Age/Sex: 57 / FADM Date: 12/10/22 Loc: RAYO Attending Dr: Kadi Tomlin MD Ordering Physician: Kadi Tomlin Date of Service: 12/10/22 Procedure(s): XR shoulder LT min 2V Accession Number(s): [id number] cc: Kadi Tomlin EXAMINATION: XR ELBOW, LEFT XR WRIST, LEFT XR SHOULDER, LEFT CLINICAL INDICATION: Pain. COMPARISON: Left wrist 09/11/2021. TECHNIQUE: Left wrist 4 views. Left shoulder 4 views. Left elbow 3 views. FINDINGS: LEFT WRIST: There is no visible acute fracture, dislocation or subluxation. No bony erosive changes. The soft tissues are normal. LEFT ELBOW: There is no visible acute fracture, dislocation or subluxation seen. No bony erosive changes. There is no joint effusion seen. LEFT SHOULDER: There is no acute fracture, dislocation subluxation. The glenohumeral and AC joints are maintained and normal. The soft tissues are normal. XR/XR shoulder LT min 2V IMPRESSION: Unremarkable left wrist exam. Unremarkable left elbow exam. Unremarkable left shoulder exam. Dictated By: Nick Chino MD Signed By: <Electronically signed by Nick Chino MD in OV> 12/17/22 0841 DD/ 1048 TD/TT: Rigger Third: [place] [facility] External Provider IMG XR PROCEDURES Final Result documented in this encounter Visit Diagnoses Diagnosis Other hyperlipidemia- Primary Pain of lower extremity, unspecified laterality documented in this encounter Additional Health Concerns Assessment Noted Time PHQ-9 Depression Total Score: 7 11/11/19 23 8:54 AM EST documented as of this encounter Care Teams Cloth Bleaching Range Operator Chief Relationship Specialty Start Date End Date Kadi Tomlin MD [address] [place] [address] PCP - General Family Medicine 05/21/21 documented as of this encounter
--- OUTSIDE RECORDS SUMMARY | 2024-10-20 15:10 | XMS_ITS | Encounter Summary ---
Author Organization [employer] Address [address] [place] [address] Care Team Providers Care Florist Designer Name Role Phone Kadi Tomlin MD Primary Care Provider [phone] Reason for Visit * Reason Comments Med Refill Encounter Details Date Type Department Care Team (Late st Contact Info) Description 10/11/2024 Refill [facility] [address] [place], [place] [phone] Tushar Nickerson MD [address] [place], [place] [phone] Social History Tobacco Use Types Packs/Day Years [...] 3:30 PM EST Procedure Visit [facility] [address] [place] [address] Kadi Tomlin MD [address] [place] [address] documented as of this encounter Visit Diagnoses Not on filedocumented in this encounter Additional Health Concerns Assessment Noted Time PHQ-9 Depression Total Score: 15 024 9:17 AM EDT documented as of this encounter Care Teams Florist Designer Relationship Specialty Start Date End Date Kadi Tomlin MD [address] [place] [address] PCP - General Family Medicine 05/21/21 documented as of this encounter
[2024-10-20 16:01] LABS: VBG Base Excess 1.8 mmol/L; VBG HCO3 26 mmol/L (22-26); VBG pCO2 40 mmHg; VBG pH 7.42 (7.32-7.43); VBG pO2 61 mmHg
[2024-10-20 16:03] LABS: Venous Blood Gas Refer to POC result
[2024-10-20 16:18] LABS: Appearance Urine Clear; Color Urine Yellow; Glucose Urine UA Negative (Negative); Leukocyte Esterase Urine Negative (Negative); Nitrite Urine Negative (Negative); Specific Gravity - Urine 1.015 (1.005-1.025); Urine Blood Negative (Negative); Urine Ketones Negative (Negative); Urine Protein Negative (Neg-Trace)
[2024-10-20 16:28] LABS: Bacteria Urine None Seen (None Seen); Hyaline Casts Urine 0-2 /LPF (0-2); RBC Urine 0-2 /HPF (0-2); Squamous Epithelial Cell Urine 0-2 /HPF (0-2); WBC Urine 0-5 /HPF (0-5)
[2024-10-20 16:29] LABS: Amphetamine Screen Urine Not Detected (Not Detect); Barbiturates, Urine Not Detected (Not Detect); Benzodiazepines Screen Urine POSITIVE (Not Detect); Buprenorphine Scr Not Detected (Not Detect); Cannabinoid Screen Urine Not Detected (Not Detect); Cocaine Screen Urine POSITIVE (Not Detect); Fentanyl, urine Not Detected (Not Detect); Methadone Screen, Urine Not Detected (Not Detect); Opiate Screen Urine Not Detected (Not Detect); Oxycodone Screen Urine Not Detected (Not Detect); Phencyclidine Screen Urine Not Detected (Not Detect)
[2024-10-20 16:34] LABS: Acetaminophen LAB < 3 mcg/mL (<30); Salicylate < 5.0 mg/dL (15-30)
[2024-10-20 18:49] VITALS: BP 145/86; PULSE 60; RESP 14; TEMP 36.4; O2SAT 96
--- NOTE | 2024-10-20 19:23 | PC.NURSE ---
assumed care of pt at this time. unsure what time fluids were infused however upon entering room fluid infusion complete.
--- NOTE | 2024-10-20 21:13 | PC.NURSE ---
completed medication hx with judith pandyaer
--- NOTE | 2024-10-20 21:39 | PHA.MEDREC ---
Addendum entered by Pamela Perez RPh 10/20/24 21:51: reviewed by [facility]. Original Note: Pharmacy Consult ? Medication Reconciliation Pharmacy has reviewed the medication reconciliation done by nursing. Claims match med rec.
[2024-10-20 22:42] VITALS: BP 145/86; PULSE 60
[2024-10-20] MEDS: cloNIDine HCL 0.1 MG TABLET PO (22:42)
[2024-10-20] MEDS: Propranolol HCL 40 MG TABLET PO (22:42)
[2024-10-20] MEDS: Amitriptyline HCl 25 MG TABLET PO (22:42)
[2024-10-20] MEDS: busPIRone HCl 10 MG TABLET 30 MG PO (22:42)
[2024-10-20] MEDS: QUEtiapine Fumarate 100 MG TABLET PO (22:42)
[2024-10-21 03:25] VITALS: PULSE 76; RESP 17; TEMP 36.6; O2SAT 99
--- NOTE | 2024-10-21 07:03 | PC.NURSE ---
Assumed care of patient at 0645, patient appears to be in no apparent distress, sleeping, respirations even and unlabored. Continue plan of care for inpatient bedsearch
--- NOTE | 2024-10-21 07:07 | PC.NURSE ---
Assumed care of patient at 0645, patient appears to be in no apparent distress, respirations even and unlabored, sleeping at this time. Continue plan of care for IPLOC
[2024-10-21] MEDS: Escitalopram Oxalate 10 MG TABLET PO (09:59)
[2024-10-21] MEDS: cloNIDine HCL 0.1 MG TABLET PO ×2 (09:59→22:05)
[2024-10-21] MEDS: QUEtiapine Fumarate 50 MG TABLET PO (09:59)
[2024-10-21] MEDS: busPIRone HCl 10 MG TABLET 30 MG PO ×2 (09:59→22:03)
[2024-10-21] MEDS: hydroCHLOROthiazide 25 MG TABLET PO (09:59)
[2024-10-21] MEDS: NIFEdipine ER 30 MG TAB.ER.24 PO (09:59)
[2024-10-21] MEDS: Atorvastatin Calcium 40 MG TABLET PO (09:59)
[2024-10-21] MEDS: lisinopriL 40 MG TABLET PO (09:59)
[2024-10-21] MEDS: Propranolol HCL 40 MG TABLET PO ×2 (09:59→22:06)
[2024-10-21 10:03] VITALS: BP 150/88; PULSE 68; RESP 14; TEMP 36.8; O2SAT 98
[2024-10-21 13:03] VITALS: BMI 33.7
[2024-10-21 14:36] LABS: Alanine Aminotransferase 17 U/L (0-31); Albumin Level 3.5 g/dL (3.5-5.0); Alkaline Phosphatase 105 U/L (39-117); Anion Gap 9 (12-20); Aspartate Amino Transferase 26 U/L (5-31); Bilirubin Total 0.2 mg/dL (0.0-1.0); Blood Urea Nitrogen 17 mg/dL (9-16); Calcium 9.4 mg/dL (8.4-10.2); Carbon Dioxide 27 mmol/L (22-29); Chloride 110 mmol/L (96-108); Creatinine Clr Calc Pharmacy 82.8; Estimated Glomerular Filt Rate > 60; Glucose Random 79 mg/dL (60-115); Potassium 4.2 mmol/L (3.3-5.1); Sodium 142 mmol/L (135-145); Total Protein 6.9 g/dL (6.5-8.0)
[2024-10-21] MEDS: Flu Vacc TS2024-25(6mos up)/PF 0.5 ML SYRINGE IM (15:13)
--- NOTE | 2024-10-21 15:23 | HO.PSYADMNOT ---
HPI Date of Service: 10/21/24 Chief Complaint: crisis Sources of Information: patient interviewed, chart reviewed and crisis/core team assessment reviewed HPI Subjective Notes: Ernandez Warning and Conditional Voluntary Narrative: Patient is a 59-year-old female with history of MDD, cocaine use disorder and benzodiazepine abuse disorder, who presented to [facility] with her daughter due to confusion after taking too many prescription medications. Per crisis report, patient has been overtaking her medications due to increased depression and has been causing confusion. Patient reports she took too many medications due to wanting to sleep from increased life stressors as her uncle recently . She reported history of suicide attempts via overdosing and cutting herself. She reports sleep is good and appetite is poor. Crisis reached out and obtain collateral from patient's mother and brother who reported patient has been acting differently for the past month and suspect that she has been mixing her medications. They also believe that she may be using other substances. History of SI attempt 5 years ago via overdose and cutting. Has psychiatrist through [facility]. Utox positive for benzodiazepine and cocaine however, denied that she has been using substances During admission assessment, production sorter present. Alert and oriented x3. Calm and cooperative. Patient reports feeling depressed due to her uncle passing away 3 days ago. Patient stated, I took extra medications to go to sleep, then my mom came in and saw the bottle on the floor and thought I overdosed. I was just trying to sleep with everything going on with my uncle . Patient reports that she went to a friend's house and used cocaine; denies using prior to this. She denies history of suicide attempts but reports history of self-injurious behavior via cutting. Patient stated, I was cutting for relief, not to kill myself . Crisis reports patient has a history of SI attempts however patient denies this and states she only has a history of cutting. Patient reports that she used cocaine a few days ago at her friend's house to get some relief from her depression and reports prior to that she has been 10 years sober. Denies SI/HI/VH/AH. Past Psychiatric History: History self-injurious behavior via cutting. Denies history of SA. Reports seeing a psychiatrist at [facility] however can not recall name. She reports this is her 1st inpatient psychiatric hospitalization. Medical Evaluation Reviewed: Yes [facility] Medical History Osteoarthritis GERD (gastroesophageal reflux disease) Hypothyroid Hx of hepatitis C Migraines Anxiety Depression Asthma Hypertension Surgical History History of esophagogastroduodenoscopy (EGD) History of nasal surgery History of tubal ligation History of colonoscopy Family History: Aunt: Depression Social History: Lives with mother, stepfather and brother. Single. 4 kids (adults). Disability. Highest level of education 11th grade. Substance History: Cocaine use. U tox positive for cocaine and benzodiazepines. Denies any other substance use. Trauma History: Denies Diagnostics Vital Signs (24Hr): Vital Signs - 24 hr 10/20/24 18:49 10/20/24 22:42 10/20/24 22:42 Temperature 97.5 F Pulse Rate 60 60 Respiratory Rate 14 Blood Pressure 145/86 H 145/86 H 145/86 H Pulse Oximetry 96 Oxygen Delivery Method Room Air 10/21/24 03:25 10/21/24 10:03 Temperature 97.8 F 98.3 F Pulse Rate 76 68 Respiratory Rate 17 14 Blood Pressure 150/88 H Pulse Oximetry 99 98 Oxygen Delivery Method Room Air Room Air BMI result Body Mass Index 33.7 Labs 10/20/24 12:07 10/21/24 14:10 Labs: Laboratory Results - last 48 hr 10/20/24 10/20/24 10/20/24 12:07 15:51 15:55 WBC 13.3 H RBC 3.78 L Hgb 9.8 L Hct 31.6 L MCV 83.6 MCH 25.9 L MCHC 31.0 RDW 15.7 Plt Count 268 MPV 10.0 Immature Gran % (Auto) 0.5 H Neut % (Auto) 81.9 H Lymph % (Auto) 11.2 L [place] % (Auto) 4.2 Eos % (Auto) 1.9 Baso % (Auto) 0.3 Lymph # (Auto) 1.5 [place] # (Auto) 0.6 Eos # (Auto) 0.3 Baso # (Auto) 0.0 Abs Immat Gran (auto) 0.06 H Absolute Neuts (auto) 10.9 H Absolute Nucleated RBC 0.000 Nucleated RBC % (auto) 0.0 PT 11.4 INR 1.0 VBG pH 7.42 VBG pCO2 40 VBG pO2 61 VBG HCO3 26 VBG O2 Saturation 90.0 VBG Base Excess 1.8 Sodium 142 Potassium 4.0 Chloride 109 H Carbon Dioxide 26 Anion Gap 11 L BUN 13 Creatinine 0.70 Estim Creat Clear Calc 84.6 Estimated GFR > 60 Random Glucose 98 Calcium 9.6 Total Bilirubin 0.2 AST 27 ALT 23 Alkaline Phosphatase 115 Ammonia 29 Total Creatine Kinase 105 Troponin I High Sens < 2.7 Total Protein 7.5 Albumin 3.8 Lipase 13 Urine Color Urine Appearance Urine pH Ur Specific [place] Urine Protein Urine Glucose (UA) Urine Ketones Urine Blood Urine Nitrite Ur Leukocyte Esterase Urine RBC Urine WBC Ur Squamous Epith Cells Urine Bacteria Hyaline Casts Salicylates < 5.0 L Urine Opiates Screen Ur Buprenorphine Scrn Ur Oxycodone Screen Urine Methadone Screen Urine Fentanyl Screen Acetaminophen < 3 Ur Barbiturates Screen Ur Phencyclidine Scrn Ur Amphetamines Screen U Benzodiazepines Scrn Urine Cocaine Screen U Marijuana (THC) Screen Ethyl Alcohol < 10 Influenza Type A (PCR) NEGATIVE Influenza Type B (PCR) NEGATIVE RSV RNA Qual (PCR) NEGATIVE SARS-CoV-2 RNA (RT-PCR) NEGATIVE 10/20/24 10/21/24 16:11 14:10 WBC RBC Hgb Hct MCV MCH MCHC RDW Plt Count MPV Immature Gran % (Auto) Neut % (Auto) Lymph % (Auto) [place] % (Auto) Eos % (Auto) Baso % (Auto) Lymph # (Auto) [place] # (Auto) Eos # (Auto) Baso # (Auto) Abs Immat Gran (auto) Absolute Neuts (auto) Absolute Nucleated RBC Nucleated RBC % (auto) PT INR VBG pH VBG pCO2 VBG pO2 VBG HCO3 VBG O2 Saturation VBG Base Excess Sodium 142 Potassium 4.2 Chloride 110 H Carbon Dioxide 27 Anion Gap 9 L BUN 17 H Creatinine 0.78 Estim Creat Clear Calc 82.8 Estimated GFR > 60 Random Glucose 79 Calcium 9.4 Total Bilirubin 0.2 AST 26 ALT 17 Alkaline Phosphatase 105 Ammonia Total Creatine Kinase Troponin I High Sens Total Protein 6.9 Albumin 3.5 Lipase Urine Color Yellow Urine Appearance Clear Urine pH 6.0 Ur Specific [place] 1.015 Urine Protein Negative Urine Glucose (UA) Negative Urine Ketones Negative Urine Blood Negative Urine Nitrite Negative Ur Leukocyte Esterase Negative Urine RBC 0-2 Urine WBC 0-5 Ur Squamous Epith Cells 0-2 Urine Bacteria None Seen Hyaline Casts 0-2 Salicylates Urine Opiates Screen Not Detected Ur Buprenorphine Scrn Not Detected Ur Oxycodone Screen Not Detected Urine Methadone Screen Not Detected Urine Fentanyl Screen Not Detected Acetaminophen Ur Barbiturates Screen Not Detected Ur Phencyclidine Scrn Not Detected Ur Amphetamines Screen Not Detected U Benzodiazepines Scrn POSITIVE H Urine Cocaine Screen POSITIVE H U Marijuana (THC) Screen Not Detected Ethyl Alcohol Influenza Type A (PCR) Influenza Type B (PCR) RSV RNA Qual (PCR) SARS-CoV-2 RNA (RT-PCR) Imaging Radiology Impressions: ITS Impressions Head CT 10/20/24 11:08 IMPRESSION: No acute intracranial hemorrhage or acute brain abnormality by CT. 1.8 cm partially calcified low density lesion, pineal gland. Stable. Electronically signed by: Jimmy Singh MD 10/20/2024 12:04 PM [facility] Meds/Allergies Meds Home Medications ?Medication ?Instructions ?Recorded ?Confirmed ?Type baclofen 10 mg tablet 10 mg PO TID PRN Muscle Spasm 09/05/20 10/20/24 History hydrochlorothiazide 25 mg tablet 25 mg PO DAILY 09/05/20 10/20/24 History quetiapine 100 mg tablet (Seroquel) 100 mg PO BEDTIME 09/05/20 10/20/24 History cholecalciferol (vitamin D3) 50 50 mcg PO DAILY 08/27/21 10/20/24 History mcg (2,000 unit) tablet albuterol sulfate 90 mcg/actuation 2 puff inhalation QID PRN Wheezing 02/13/22 10/20/24 History aerosol inhaler atorvastatin 80 mg tablet 40 mg PO DAILY 02/13/22 10/20/24 History sumatriptan succinate 100 mg tablet 100 mg PO DAILY MRX1 PRN headaches 02/13/22 10/20/24 History amitriptyline 25 mg tablet 25 mg PO BEDTIME 11/27/23 10/20/24 History escitalopram oxalate 10 mg tablet 10 mg PO DAILY 11/27/23 10/20/24 History inhalational spacing device #1 ea 11/27/23 History (Compact Space Chamber) lisinopril 40 mg tablet 40 mg PO DAILY 11/27/23 10/20/24 History nifedipine 30 mg tablet,extended 30 mg PO DAILY 11/27/23 10/20/24 History release 24 hr propranolol 40 mg tablet 40 mg PO BID 11/27/23 10/20/24 History quetiapine 50 mg tablet 50 mg PO BID@0900,1700 11/27/23 10/20/24 History zolpidem 5 mg tablet 5 mg PO BEDTIME PRN insomnia 11/27/23 10/20/24 History buspirone 5 mg tablet 30 mg PO BID 10/20/24 10/20/24 History Allergies Allergies Allergy/AdvReac Type Severity Reaction Status Date / Time No Known Allergies Allergy Verified 10/20/24 11:08 Mental Status Exam Mental Status Exam Narrative: Pt is alert and oriented; behavior is cooperative, guarded and calm; dressed in casual attire; mood is described as depressed ; eye contact appropriate; Speech is normal rate, volume and not pressured; thought process is organized; Thought content is on tx; denies SI/HI/AH/VH. Assessment & Plan Assessment & Plan (1) MDD (major depressive disorder), recurrent episode: Status: Acute Code(s): F33.9 - Major depressive disorder, recurrent, unspecified (2) Cocaine abuse: Status: Acute Code(s): F14.10 - Cocaine abuse, uncomplicated (3) Benzodiazepine abuse: Status: Acute Code(s): F13.10 - Sedative, hypnotic or anxiolytic abuse, uncomplicated Plan Patient is a 59-year-old female with history of MDD, cocaine use disorder and benzodiazepine abuse disorder, who presented to [facility] with her daughter due to confusion after taking too many prescription medications. Plan: CV 15 minute safety checks Obtain collateral Continue home medications Encourage groups Referral to outpatient therapist Discharge planning Patient educated on: diagnosis and medication risk/benefits Reason for continued inpatient stay Substantial Risk for: med/psych decompensation Statement Statement: I have reviewed the history and physical and performed a pertinent examination on my patient. No changes have occurred unless specified. If the History and Physical was not performed prior to admission, the Hospitalist's service will be consulted for completing the admission physical. Time Spent With Patient Time: Total time managing care of this patient today _60___ minutes.
--- NOTE | 2024-10-21 15:44 | PC.ADMIT ---
Danika is a 59 year old, primarily French speaking, female who was admitted to our unit at 1240 from the ED POD on a CV for treatment of Unspecified Depressive Disorder. The precipitant of admission includes a recent change in patient's mental status, (per pt's family she has been more confused and taking an excessive amount of her medications), which led to the patient presenting to the ED with her daughter. She is cooperative with the admission process with the use of an site interpreter. Patient is A&Ox2 with limited insight into her situation I'm not sure why I came in, but I've been feeling more depressed lately . Patient reports the passing of her uncle within the last week has caused increased depression/stressors added to her life. I'm still processing the whole thing, and then I took over caring for his dog who hasn't been eating, it's a lot . Patient reports having a hx of SI attempts and causing self infliction to her wrists, which she then proceeded to show to this nurse. She currently denies SI/HI/AVH along with anxiety, but endorses mild depression. Patient's Tox screen is positive for both benzo's and cocaine, although upon assessment pt stated I haven't used cocaine in over 10 years . She reports both appetite and sleep are good and denied any other acute complaints. Patient also received her flu vaccine and has been placed on 15 minute checks.
[2024-10-21 19:37] VITALS: BP 144/90; PULSE 71; RESP 18; TEMP 37.1; O2SAT 98
[2024-10-21 22:00] VITALS: BP 137/84; PULSE 73; RESP 18; TEMP 36.9; O2SAT 97
[2024-10-21] MEDS: QUEtiapine Fumarate 100 MG TABLET PO (22:02)
[2024-10-21] MEDS: Baclofen 10 MG TABLET PO (22:02)
[2024-10-21] MEDS: Zolpidem Tartrate 5 MG TABLET PO (22:02)
[2024-10-21] MEDS: Omeprazole 20 MG CAPSULE.DR PO (22:03)
[2024-10-21 22:05] VITALS: BP 137/84
[2024-10-21 22:06] VITALS: BP 137/84; PULSE 73
[2024-10-21] MEDS: Amitriptyline HCl 25 MG TABLET PO (22:06)
[2024-10-22] MEDS: Omeprazole 20 MG CAPSULE.DR PO ×2 (06:35→17:14)
[2024-10-22 07:38] VITALS: BP 149/86; PULSE 68; RESP 16; TEMP 36.4; O2SAT 100
[2024-10-22 07:40] LABS: Cholesterol 179 mg/dL (<200); HDL Cholesterol 50 mg/dL (>40); LDL Cholesterol Calculated 107 mg/dL (<100); Triglycerides 114 mg/dL (<150)
--- NOTE | 2024-10-22 08:45 | HO.PSYCHPN ---
Subjective Subjective Date of Service: 10/22/24 Reason For Visit: crisis Subjective Notes: Conditional Voluntary Interim History: Active on unit. attending some groups. digital librarian present. Pt reports feeling good today; pt stated, I'm not feeling confused today. I do feel like I'm still recuperating . denies SI/HI/VH/AH. Medication Compliance: Yes Side effects from medications: No Attending Groups: Intermittent Review of Systems Constitutional: Reports as per HPI Eyes: Reports as per HPI Reports as per HPI Cardiovascular: Reports as per HPI Respiratory: Reports as per HPI Gastrointestinal: Reports as per HPI Musculoskeletal: Reports as per HPI Skin/Breast: Reports as per HPI Reports as per HPI Psychiatric: Reports as per HPI Endocrine: Reports as per HPI Hematologic/Lymphatic: Reports as per HPI Allergic/Immunologic: Reports as per HPI Mental Status Exam Mental Status Exam Narrative: Pt is alert and oriented; behavior is cooperative and calm; dressed in casual attire; mood is described as better ; eye contact appropriate; Speech is normal rate, volume and not pressured; thought process is organized; Thought content is on tx; denies SI/HI/AH/VH. Diagnostics Vital Signs (24Hr): Vital Signs - 24 hr 10/21/24 10:03 10/21/24 19:37 10/21/24 22:00 Temperature 98.3 F 98.7 F 98.4 F Pulse Rate 68 71 73 Respiratory Rate 14 18 18 Blood Pressure 150/88 H 144/90 H 137/84 Pulse Oximetry 98 98 97 Oxygen Delivery Method Room Air Room Air Room Air 10/21/24 22:05 10/21/24 22:06 10/22/24 07:38 Temperature 97.6 F Pulse Rate 73 68 Respiratory Rate 16 Blood Pressure 137/84 137/84 149/86 H Pulse Oximetry 100 Oxygen Delivery Method Room Air BMI result Body Mass Index 33.7 Labs 10/20/24 12:07 10/21/24 14:10 Labs: Laboratory Results - last 48 hr 10/20/24 10/20/24 10/20/24 12:07 15:51 15:55 WBC 13.3 H RBC 3.78 L Hgb 9.8 L Hct 31.6 L MCV 83.6 MCH 25.9 L MCHC 31.0 RDW 15.7 Plt Count 268 MPV 10.0 Immature Gran % (Auto) 0.5 H Neut % (Auto) 81.9 H Lymph % (Auto) 11.2 L [place] % (Auto) 4.2 Eos % (Auto) 1.9 Baso % (Auto) 0.3 Lymph # (Auto) 1.5 [place] # (Auto) 0.6 Eos # (Auto) 0.3 Baso # (Auto) 0.0 Abs Immat Gran (auto) 0.06 H Absolute Neuts (auto) 10.9 H Absolute Nucleated RBC 0.000 Nucleated RBC % (auto) 0.0 PT 11.4 INR 1.0 VBG pH 7.42 VBG pCO2 40 VBG pO2 61 VBG HCO3 26 VBG O2 Saturation 90.0 VBG Base Excess 1.8 Sodium 142 Potassium 4.0 Chloride 109 H Carbon Dioxide 26 Anion Gap 11 L BUN 13 Creatinine 0.70 Estim Creat Clear Calc 84.6 Estimated GFR > 60 Random Glucose 98 Calcium 9.6 Total Bilirubin 0.2 AST 27 ALT 23 Alkaline Phosphatase 115 Ammonia 29 Total Creatine Kinase 105 Troponin I High Sens < 2.7 Total Protein 7.5 Albumin 3.8 Triglycerides Cholesterol LDL Cholesterol, Calc HDL Cholesterol Lipase 13 Urine Color Urine Appearance Urine pH Ur Specific [place] Urine Protein Urine Glucose (UA) Urine Ketones Urine Blood Urine Nitrite Ur Leukocyte Esterase Urine RBC Urine WBC Ur Squamous Epith Cells Urine Bacteria Hyaline Casts Salicylates < 5.0 L Urine Opiates Screen Ur Buprenorphine Scrn Ur Oxycodone Screen Urine Methadone Screen Urine Fentanyl Screen Acetaminophen < 3 Ur Barbiturates Screen Ur Phencyclidine Scrn Ur Amphetamines Screen U Benzodiazepines Scrn Urine Cocaine Screen U Marijuana (THC) Screen Ethyl Alcohol < 10 Influenza Type A (PCR) NEGATIVE Influenza Type B (PCR) NEGATIVE RSV RNA Qual (PCR) NEGATIVE SARS-CoV-2 RNA (RT-PCR) NEGATIVE 10/20/24 10/21/24 10/22/24 16:11 14:10 06:57 WBC RBC Hgb Hct MCV MCH MCHC RDW Plt Count MPV Immature Gran % (Auto) Neut % (Auto) Lymph % (Auto) [place] % (Auto) Eos % (Auto) Baso % (Auto) Lymph # (Auto) [place] # (Auto) Eos # (Auto) Baso # (Auto) Abs Immat Gran (auto) Absolute Neuts (auto) Absolute Nucleated RBC Nucleated RBC % (auto) PT INR VBG pH VBG pCO2 VBG pO2 VBG HCO3 VBG O2 Saturation VBG Base Excess Sodium 142 Potassium 4.2 Chloride 110 H Carbon Dioxide 27 Anion Gap 9 L BUN 17 H Creatinine 0.78 Estim Creat Clear Calc 82.8 Estimated GFR > 60 Random Glucose 79 Calcium 9.4 Total Bilirubin 0.2 AST 26 ALT 17 Alkaline Phosphatase 105 Ammonia Total Creatine Kinase Troponin I High Sens Total Protein 6.9 Albumin 3.5 Triglycerides 114 Cholesterol 179 LDL Cholesterol, Calc 107 H HDL Cholesterol 50 Lipase Urine Color Yellow Urine Appearance Clear Urine pH 6.0 Ur Specific [place] 1.015 Urine Protein Negative Urine Glucose (UA) Negative Urine Ketones Negative Urine Blood Negative Urine Nitrite Negative Ur Leukocyte Esterase Negative Urine RBC 0-2 Urine WBC 0-5 Ur Squamous Epith Cells 0-2 Urine Bacteria None Seen Hyaline Casts 0-2 Salicylates Urine Opiates Screen Not Detected Ur Buprenorphine Scrn Not Detected Ur Oxycodone Screen Not Detected Urine Methadone Screen Not Detected Urine Fentanyl Screen Not Detected Acetaminophen Ur Barbiturates Screen Not Detected Ur Phencyclidine Scrn Not Detected Ur Amphetamines Screen Not Detected U Benzodiazepines Scrn POSITIVE H Urine Cocaine Screen POSITIVE H U Marijuana (THC) Screen Not Detected Ethyl Alcohol Influenza Type A (PCR) Influenza Type B (PCR) RSV RNA Qual (PCR) SARS-CoV-2 RNA (RT-PCR) Imaging Radiology Impressions: ITS Impressions Head CT 10/20/24 11:08 IMPRESSION: No acute intracranial hemorrhage or acute brain abnormality by CT. 1.8 cm partially calcified low density lesion, pineal gland. Stable. Electronically signed by: Jimmy Singh MD 10/20/2024 12:04 PM [facility] Medications Medications Current Medications Acetaminophen (Acetaminophen 325 Mg Tablet) 650 mg PO Q6H PRN PRN Reason: Headache/Pain Mild Scale (1-3) Al Hydroxide/Mg Hydroxide (Magnesium Hydrox/Alum Hydrox 30 Ml Oral.Susp) 30 ml PO Q6H PRN PRN Reason: Heartburn/Nausea Albuterol Sulfate (Albuterol Sulfate 90 Mcg 8 Gm Inhaler) 2 puff INHALE QID PRN PRN Reason: Wheezing Amitriptyline HCl (Amitriptyline Hcl 25 Mg Tablet) 25 mg PO BEDTIME [facility] Last Admin: 10/21/24 22:06 Dose: 25 mg Atorvastatin Calcium (Atorvastatin Calcium 40 Mg Tablet) 40 mg PO DAILY [facility] Last Admin: 10/21/24 09:59 Dose: 40 mg Baclofen (Baclofen 10 Mg Tablet) 10 mg PO TID PRN PRN Reason: Muscle Spasm Last Admin: 10/21/24 22:02 Dose: 10 mg Buspirone HCl (Buspirone Hcl 10 Mg Tablet) 30 mg PO BID [facility] Last Admin: 10/21/24 22:03 Dose: 30 mg Clonidine HCl (Clonidine Hcl 0.1 Mg Tablet) 0.1 mg PO BID [facility]; Protocol Last Admin: 10/21/24 22:05 Dose: 0.1 mg Escitalopram Oxalate (Escitalopram Oxalate 10 Mg Tablet) 10 mg PO DAILY [facility] Last Admin: 10/21/24 09:59 Dose: 10 mg Hydrochlorothiazide (Hydrochlorothiazide 25 Mg Tablet) 25 mg PO DAILY [facility]; Protocol Last Admin: 10/21/24 09:59 Dose: 25 mg Hydroxyzine HCl (Hydroxyzine Hcl 25 Mg Tablet) 25 mg PO Q6H PRN PRN Reason: Anxiety Lisinopril (Lisinopril 40 Mg Tablet) 40 mg PO DAILY [facility]; Protocol Last Admin: 10/21/24 09:59 Dose: 40 mg Magnesium Hydroxide (Milk Of Magnesia 30 Ml Oral.Susp) 30 ml PO DAILY PRN PRN Reason: Constipation Nicotine (Nicotine 21 Mg Patch.Td24) 21 mg TRANSDERMA DAILY [facility] Nicotine Polacrilex (Nicotine Polacrilex 2 Mg Gum) 4 mg BUCCAL Q2H PRN PRN Reason: Nicotine Cravings Nifedipine (Nifedipine Er 30 Mg Tab.Er.24) 30 mg PO DAILY [facility]; Protocol Last Admin: 10/21/24 09:59 Dose: 30 mg Omeprazole (Omeprazole 20 Mg Capsule.Dr) 20 mg PO BID@0630,1630 [facility] Last Admin: 10/22/24 06:35 Dose: 20 mg Propranolol HCl (Propranolol Hcl 40 Mg Tablet) 40 mg PO BID [facility]; Protocol Last Admin: 10/21/24 22:06 Dose: 40 mg Quetiapine Fumarate (Quetiapine Fumarate 50 Mg Tablet) 50 mg PO BID@0900,1700 [facility] Last Admin: 10/21/24 17:17 Dose: Not Given Quetiapine Fumarate (Quetiapine Fumarate 100 Mg Tablet) 100 mg PO BEDTIME [facility] Last Admin: 10/21/24 22:02 Dose: 100 mg Sumatriptan Succinate (Sumatriptan Succinate 100 Mg Tablet) 100 mg PO DAILY MRX1 PRN PRN Reason: headaches Vitamin D (Cholecalciferol (Vitamin D3) 25 Mcg Tablet) 50 mcg PO DAILY [facility] Zolpidem Tartrate (Zolpidem Tartrate 5 Mg Tablet) 5 mg PO BEDTIME PRN PRN Reason: insomnia Last Admin: 10/21/24 22:02 Dose: 5 mg Allergies Allergies Allergy/AdvReac Type Severity Reaction Status Date / Time No Known Allergies Allergy Verified 10/20/24 11:08 Assessment & Plan Assessment & Plan (1) MDD (major depressive disorder), recurrent episode: Status: Acute Code(s): F33.9 - Major depressive disorder, recurrent, unspecified (2) Cocaine abuse: Status: Acute Code(s): F14.10 - Cocaine abuse, uncomplicated (3) Benzodiazepine abuse: Status: Acute Code(s): F13.10 - Sedative, hypnotic or anxiolytic abuse, uncomplicated Plan Patient is a 59-year-old female with history of MDD, cocaine use disorder and benzodiazepine abuse disorder, who presented to [facility] with her daughter due to confusion after taking too many prescription medications. Plan: CV 15 minute safety checks Obtain collateral Continue home medications Encourage groups Referral to outpatient therapist Discharge planning 10/22: Active on unit. attending some groups. digital librarian present. Pt reports feeling good today; pt stated, I'm not feeling confused today. I do feel like I'm still recuperating . denies SI/HI/VH/AH continue current tx plan Patient educated on: diagnosis and medication risk/benefits Reason for continued inpatient stay Substantial Risk for: med/psych decompensation Time Spent With Patient Time: Total time managing care of this patient today _20___ minutes.
[2024-10-22] MEDS: Cholecalciferol (Vitamin D3) 25 MCG TABLET 50 MCG PO (09:52)
[2024-10-22 09:53] VITALS: BP 149/86; PULSE 68
[2024-10-22] MEDS: Atorvastatin Calcium 40 MG TABLET PO (09:53)
[2024-10-22] MEDS: Escitalopram Oxalate 10 MG TABLET PO (09:53)
[2024-10-22] MEDS: busPIRone HCl 10 MG TABLET 30 MG PO ×2 (09:53→22:14)
[2024-10-22] MEDS: NIFEdipine ER 30 MG TAB.ER.24 PO (09:53)
[2024-10-22] MEDS: Propranolol HCL 40 MG TABLET PO ×2 (09:53→22:15)
[2024-10-22] MEDS: QUEtiapine Fumarate 50 MG TABLET PO ×2 (09:53→17:14)
[2024-10-22] MEDS: cloNIDine HCL 0.1 MG TABLET PO ×2 (09:53→22:15)
[2024-10-22 09:54] VITALS: BP 149/86
[2024-10-22] MEDS: lisinopriL 40 MG TABLET PO (09:54)
[2024-10-22] MEDS: hydroCHLOROthiazide 25 MG TABLET PO (09:54)
[2024-10-22] MEDS: Baclofen 10 MG TABLET PO ×2 (17:44→22:14)
[2024-10-22] MEDS: Acetaminophen 325 MG TABLET 650 MG PO (17:44)
[2024-10-22 18:52] VITALS: BP 103/63; PULSE 65; RESP 16; TEMP 36.6; O2SAT 100
[2024-10-22] MEDS: QUEtiapine Fumarate 100 MG TABLET PO (22:14)
[2024-10-22 22:15] VITALS: BP 97/57; PULSE 71
[2024-10-22] MEDS: Zolpidem Tartrate 5 MG TABLET PO (22:16)
[2024-10-22] MEDS: Amitriptyline HCl 25 MG TABLET PO (22:16)
[2024-10-23] MEDS: Omeprazole 20 MG CAPSULE.DR PO ×2 (06:47→17:00)
[2024-10-23 07:40] VITALS: BP 118/66; PULSE 62; RESP 14; TEMP 36.5; O2SAT 98
--- NOTE | 2024-10-23 09:01 | P.PNPSI_ITS ---
Subjective Subjective Date of Service: 10/23/24 Reason For Visit: crisis Subjective Notes: 3 Day Interim History: 3 day notice up on 10/26/24. attending some groups. 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 Pt reports feeling good today; she feels her medications are helping. denies any confusion. Hoping to return home soon. denies SI/HI/VH/AH. Medication Compliance: Yes Side effects from medications: No Attending Groups: Intermittent Mental Status Exam Mental Status Exam Narrative: Pt is alert and oriented; behavior is cooperative and calm; dressed in casual attire; mood is described as better ; eye contact appropriate; Speech is normal rate, volume and not pressured; thought process is organized; Thought content is on tx; denies SI/HI/AH/VH. Diagnostics Vital Signs (24Hr): Vital Signs - 24 hr 10/22/24 09:53 10/22/24 09:53 10/22/24 09:54 Temperature Pulse Rate 68 Respiratory Rate Blood Pressure 149/86 H 149/86 H 149/86 H Pulse Oximetry Oxygen Delivery Method 10/22/24 09:54 10/22/24 18:52 10/22/24 22:15 Temperature 97.8 F Pulse Rate 65 Respiratory Rate 16 Blood Pressure 149/86 H 103/63 97/57 L Pulse Oximetry 100 Oxygen Delivery Method Room Air 10/22/24 22:15 10/23/24 07:40 Temperature 97.7 F Pulse Rate 71 62 Respiratory Rate 14 Blood Pressure 97/57 L 118/66 Pulse Oximetry 98 Oxygen Delivery Method Room Air BMI result Body Mass Index 33.7 Labs 10/20/24 12:07 10/21/24 14:10 Labs: Laboratory Results - last 48 hr 10/21/24 10/22/24 14:10 06:57 Sodium 142 Potassium 4.2 Chloride 110 H Carbon Dioxide 27 Anion Gap 9 L BUN 17 H Creatinine 0.78 Estim Creat Clear Calc 82.8 Estimated GFR > 60 Random Glucose 79 Calcium 9.4 Total Bilirubin 0.2 AST 26 ALT 17 Alkaline Phosphatase 105 Total Protein 6.9 Albumin 3.5 Triglycerides 114 Cholesterol 179 LDL Cholesterol, Calc 107 H HDL Cholesterol 50 Imaging Radiology Impressions: ITS Impressions Head CT 10/20/24 11:08 IMPRESSION: No acute intracranial hemorrhage or acute brain abnormality by CT. 1.8 cm partially calcified low density lesion, pineal gland. Stable. Electronically signed by: Jimmy Singh MD 10/20/2024 12:04 PM [facility] Medications Medications Current Medications Acetaminophen (Acetaminophen 325 Mg Tablet) 650 mg PO Q6H PRN PRN Reason: Headache/Pain Mild Scale (1-3) Last Admin: 10/22/24 17:44 Dose: 650 mg Al Hydroxide/Mg Hydroxide (Magnesium Hydrox/Alum Hydrox 30 Ml Oral.Susp) 30 ml PO Q6H PRN PRN Reason: Heartburn/Nausea Albuterol Sulfate (Albuterol Sulfate 90 Mcg 8 Gm Inhaler) 2 puff INHALE QID PRN PRN Reason: Wheezing Amitriptyline HCl (Amitriptyline Hcl 25 Mg Tablet) 25 mg PO BEDTIME [facility] Last Admin: 10/22/24 22:16 Dose: 25 mg Atorvastatin Calcium (Atorvastatin Calcium 40 Mg Tablet) 40 mg PO DAILY [facility] Last Admin: 10/22/24 09:53 Dose: 40 mg Baclofen (Baclofen 10 Mg Tablet) 10 mg PO TID PRN PRN Reason: Muscle Spasm Last Admin: 10/22/24 22:14 Dose: 10 mg Buspirone HCl (Buspirone Hcl 10 Mg Tablet) 30 mg PO BID [facility] Last Admin: 10/22/24 22:14 Dose: 30 mg Clonidine HCl (Clonidine Hcl 0.1 Mg Tablet) 0.1 mg PO BID [facility]; Protocol Last Admin: 10/22/24 22:15 Dose: 0.1 mg Escitalopram Oxalate (Escitalopram Oxalate 10 Mg Tablet) 10 mg PO DAILY [facility] Last Admin: 10/22/24 09:53 Dose: 10 mg Hydrochlorothiazide (Hydrochlorothiazide 25 Mg Tablet) 25 mg PO DAILY [facility]; Protocol Last Admin: 10/22/24 09:54 Dose: 25 mg Hydroxyzine HCl (Hydroxyzine Hcl 25 Mg Tablet) 25 mg PO Q6H PRN PRN Reason: Anxiety Lisinopril (Lisinopril 40 Mg Tablet) 40 mg PO DAILY [facility]; Protocol Last Admin: 10/22/24 09:54 Dose: 40 mg Magnesium Hydroxide (Milk Of Magnesia 30 Ml Oral.Susp) 30 ml PO DAILY PRN PRN Reason: Constipation Nicotine (Nicotine 21 Mg Patch.Td24) 21 mg TRANSDERMA DAILY [facility] Last Admin: 10/22/24 12:34 Dose: Not Given Nicotine Polacrilex (Nicotine Polacrilex 2 Mg Gum) 4 mg BUCCAL Q2H PRN PRN Reason: Nicotine Cravings Nifedipine (Nifedipine Er 30 Mg Tab.Er.24) 30 mg PO DAILY [facility]; Protocol Last Admin: 10/22/24 09:53 Dose: 30 mg Omeprazole (Omeprazole 20 Mg Capsule.Dr) 20 mg PO BID@0630,1630 [facility] Last Admin: 10/23/24 06:47 Dose: 20 mg Propranolol HCl (Propranolol Hcl 40 Mg Tablet) 40 mg PO BID [facility]; Protocol Last Admin: 10/22/24 22:15 Dose: 40 mg Quetiapine Fumarate (Quetiapine Fumarate 50 Mg Tablet) 50 mg PO BID@0900,1700 [facility] Last Admin: 10/22/24 17:14 Dose: 50 mg Quetiapine Fumarate (Quetiapine Fumarate 100 Mg Tablet) 100 mg PO BEDTIME [facility] Last Admin: 10/22/24 22:14 Dose: 100 mg Sumatriptan Succinate (Sumatriptan Succinate 100 Mg Tablet) 100 mg PO DAILY MRX1 PRN PRN Reason: headaches Vitamin D (Cholecalciferol (Vitamin D3) 25 Mcg Tablet) 50 mcg PO DAILY [facility] Last Admin: 10/22/24 09:52 Dose: 50 mcg Zolpidem Tartrate (Zolpidem Tartrate 5 Mg Tablet) 5 mg PO BEDTIME PRN PRN Reason: insomnia Last Admin: 10/22/24 22:16 Dose: 5 mg Allergies Allergies Allergy/AdvReac Type Severity Reaction Status Date / Time No Known Allergies Allergy Verified 10/20/24 11:08 Assessment & Plan Assessment & Plan (1) MDD (major depressive disorder), recurrent episode: Status: Acute Code(s): F33.9 - Major depressive disorder, recurrent, unspecified (2) Cocaine abuse: Status: Acute Code(s): F14.10 - Cocaine abuse, uncomplicated (3) Benzodiazepine abuse: Status: Acute Code(s): F13.10 - Sedative, hypnotic or anxiolytic abuse, uncomplicated Plan Patient is a 59-year-old female with history of MDD, cocaine use disorder and benzodiazepine abuse disorder, who presented to [facility] ER with her daughter due to confusion after taking too many prescription medications. Plan: CV 15 minute safety checks Obtain collateral Continue home medications Encourage groups Referral to outpatient therapist Discharge planning 10/22: Active on unit. attending some groups. 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 Pt reports feeling good today; pt stated, I'm not feeling confused today. I do feel like I'm still recuperating . denies SI/HI/VH/AH continue current tx plan 10/23: 3 day notice up on 10/26/24. attending some groups. 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 Pt reports feeling good today; she feels her medications are helping. denies any confusion. Hoping to return home soon. denies SI/HI/VH/AH continue current tx plan. Patient educated on: diagnosis and medication risk/benefits Reason for continued inpatient stay Substantial Risk for: med/psych decompensation Time Spent With Patient Time: Total time managing care of this patient today _20___ minutes.
[2024-10-23] MEDS: Cholecalciferol (Vitamin D3) 25 MCG TABLET 50 MCG PO (09:14)
[2024-10-23] MEDS: Atorvastatin Calcium 40 MG TABLET PO (09:14)
[2024-10-23] MEDS: Escitalopram Oxalate 10 MG TABLET PO (09:14)
[2024-10-23] MEDS: busPIRone HCl 10 MG TABLET 30 MG PO ×2 (09:14→21:18)
[2024-10-23 09:15] VITALS: BP 118/66; PULSE 62
[2024-10-23] MEDS: NIFEdipine ER 30 MG TAB.ER.24 PO (09:15)
[2024-10-23] MEDS: lisinopriL 40 MG TABLET PO (09:15)
[2024-10-23] MEDS: cloNIDine HCL 0.1 MG TABLET PO ×2 (09:15→21:17)
[2024-10-23] MEDS: Propranolol HCL 40 MG TABLET PO ×2 (09:15→21:18)
[2024-10-23 09:16] VITALS: BP 118/66
[2024-10-23] MEDS: QUEtiapine Fumarate 50 MG TABLET PO ×2 (09:16→17:00)
[2024-10-23] MEDS: hydroCHLOROthiazide 25 MG TABLET PO (09:16)
[2024-10-23] MEDS: Baclofen 10 MG TABLET PO (09:20)
[2024-10-23] MEDS: Acetaminophen 325 MG TABLET 650 MG PO ×2 (09:21→22:56)
[2024-10-23 18:55] VITALS: BP 116/69; PULSE 74; RESP 16; TEMP 36.1; O2SAT 100
[2024-10-23 21:17] VITALS: BP 96/67
[2024-10-23 21:18] VITALS: PULSE 73
[2024-10-23] MEDS: QUEtiapine Fumarate 100 MG TABLET PO (21:18)
[2024-10-23] MEDS: Amitriptyline HCl 25 MG TABLET PO (21:18)
[2024-10-23] MEDS: Zolpidem Tartrate 5 MG TABLET PO (21:23)
[2024-10-24] MEDS: Omeprazole 20 MG CAPSULE.DR PO ×2 (06:47→16:27)
[2024-10-24 07:40] VITALS: BP 104/57; PULSE 61; RESP 14; TEMP 36.4; O2SAT 93
[2024-10-24 08:47] VITALS: BP 133/65; PULSE 65; O2SAT 100
[2024-10-24] MEDS: cloNIDine HCL 0.1 MG TABLET PO ×2 (08:49→21:31)
[2024-10-24] MEDS: Propranolol HCL 40 MG TABLET PO ×2 (08:50→21:31)
[2024-10-24] MEDS: busPIRone HCl 10 MG TABLET 30 MG PO ×2 (08:50→21:30)
[2024-10-24] MEDS: Cholecalciferol (Vitamin D3) 25 MCG TABLET 50 MCG PO (08:50)
[2024-10-24] MEDS: Escitalopram Oxalate 10 MG TABLET PO (08:51)
[2024-10-24] MEDS: QUEtiapine Fumarate 50 MG TABLET PO ×2 (08:51→16:28)
[2024-10-24] MEDS: hydroCHLOROthiazide 25 MG TABLET PO (08:51)
[2024-10-24] MEDS: Atorvastatin Calcium 40 MG TABLET PO (08:51)
[2024-10-24] MEDS: NIFEdipine ER 30 MG TAB.ER.24 PO (08:52)
[2024-10-24] MEDS: lisinopriL 40 MG TABLET PO (08:52)
[2024-10-24] MEDS: Baclofen 10 MG TABLET PO (09:33)
--- NOTE | 2024-10-24 11:19 | HO.PSYCHPN ---
Subjective Subjective Date of Service: 10/24/24 Reason For Visit: crisis Subjective Notes: 3 Day Interim History: 3 day notice up on 10/26/24. Plan to discharge home tomorrow. Pt reports feeling good and plans on following up with her outpatient providers. denies SI/HI/VH/AH. Pt reports she plans on attending meetings to focus on her sobriety. Medication Compliance: Yes Side effects from medications: No Mental Status Exam Mental Status Exam Narrative: Pt is alert and oriented; behavior is cooperative and calm; dressed in casual attire; mood is described as good ; eye contact appropriate; Speech is normal rate, volume and not pressured; thought process is organized; Thought content is on discharge; denies SI/HI/AH/VH. Diagnostics Vital Signs (24Hr): Vital Signs - 24 hr 10/23/24 18:55 10/23/24 21:17 10/23/24 21:18 Temperature 96.9 F Pulse Rate 74 73 Respiratory Rate 16 Blood Pressure 116/69 96/67 Pulse Oximetry 100 Oxygen Delivery Method Room Air 10/24/24 07:40 10/24/24 08:47 Temperature 97.5 F Pulse Rate 61 65 Respiratory Rate 14 Blood Pressure 104/57 L 133/65 Pulse Oximetry 93 100 Oxygen Delivery Method Room Air Room Air BMI result Body Mass Index 33.7 Labs 10/20/24 12:07 10/21/24 14:10 Imaging Radiology Impressions: ITS Impressions Head CT 10/20/24 11:08 IMPRESSION: No acute intracranial hemorrhage or acute brain abnormality by CT. 1.8 cm partially calcified low density lesion, pineal gland. Stable. Electronically signed by: Jimmy Singh MD 10/20/2024 12:04 PM [facility] Medications Medications Current Medications Acetaminophen (Acetaminophen 325 Mg Tablet) 650 mg PO Q6H PRN PRN Reason: Headache/Pain Mild Scale (1-3) Last Admin: 10/23/24 22:56 Dose: 650 mg Al Hydroxide/Mg Hydroxide (Magnesium Hydrox/Alum Hydrox 30 Ml Oral.Susp) 30 ml PO Q6H PRN PRN Reason: Heartburn/Nausea Albuterol Sulfate (Albuterol Sulfate 90 Mcg 8 Gm Inhaler) 2 puff INHALE QID PRN PRN Reason: Wheezing Amitriptyline HCl (Amitriptyline Hcl 25 Mg Tablet) 25 mg PO BEDTIME [facility] Last Admin: 10/23/24 21:18 Dose: 25 mg Atorvastatin Calcium (Atorvastatin Calcium 40 Mg Tablet) 40 mg PO DAILY [facility] Last Admin: 10/24/24 08:51 Dose: 40 mg Baclofen (Baclofen 10 Mg Tablet) 10 mg PO TID PRN PRN Reason: Muscle Spasm Last Admin: 10/24/24 09:33 Dose: 10 mg Buspirone HCl (Buspirone Hcl 10 Mg Tablet) 30 mg PO BID [facility] Last Admin: 10/24/24 08:50 Dose: 30 mg Clonidine HCl (Clonidine Hcl 0.1 Mg Tablet) 0.1 mg PO BID [facility]; Protocol Last Admin: 10/24/24 08:49 Dose: 0.1 mg Escitalopram Oxalate (Escitalopram Oxalate 10 Mg Tablet) 10 mg PO DAILY [facility] Last Admin: 10/24/24 08:51 Dose: 10 mg Hydrochlorothiazide (Hydrochlorothiazide 25 Mg Tablet) 25 mg PO DAILY [facility]; Protocol Last Admin: 10/24/24 08:51 Dose: 25 mg Hydroxyzine HCl (Hydroxyzine Hcl 25 Mg Tablet) 25 mg PO Q6H PRN PRN Reason: Anxiety Lisinopril (Lisinopril 40 Mg Tablet) 40 mg PO DAILY [facility]; Protocol Last Admin: 10/24/24 08:52 Dose: 40 mg Magnesium Hydroxide (Milk Of Magnesia 30 Ml Oral.Susp) 30 ml PO DAILY PRN PRN Reason: Constipation Nicotine (Nicotine 21 Mg Patch.Td24) 21 mg TRANSDERMA DAILY [facility] Last Admin: 10/24/24 08:55 Dose: Not Given Nicotine Polacrilex (Nicotine Polacrilex 2 Mg Gum) 4 mg BUCCAL Q2H PRN PRN Reason: Nicotine Cravings Nifedipine (Nifedipine Er 30 Mg Tab.Er.24) 30 mg PO DAILY [facility]; Protocol Last Admin: 10/24/24 08:52 Dose: 30 mg Omeprazole (Omeprazole 20 Mg Capsule.Dr) 20 mg PO BID@0630,1630 [facility] Last Admin: 10/24/24 06:47 Dose: 20 mg Propranolol HCl (Propranolol Hcl 40 Mg Tablet) 40 mg PO BID [facility]; Protocol Last Admin: 10/24/24 08:50 Dose: 40 mg Quetiapine Fumarate (Quetiapine Fumarate 50 Mg Tablet) 50 mg PO BID@0900,1700 [facility] Last Admin: 10/24/24 08:51 Dose: 50 mg Quetiapine Fumarate (Quetiapine Fumarate 100 Mg Tablet) 100 mg PO BEDTIME [facility] Last Admin: 10/23/24 21:18 Dose: 100 mg Sumatriptan Succinate (Sumatriptan Succinate 100 Mg Tablet) 100 mg PO DAILY MRX1 PRN PRN Reason: headaches Vitamin D (Cholecalciferol (Vitamin D3) 25 Mcg Tablet) 50 mcg PO DAILY [facility] Last Admin: 10/24/24 08:50 Dose: 50 mcg Zolpidem Tartrate (Zolpidem Tartrate 5 Mg Tablet) 5 mg PO BEDTIME PRN PRN Reason: insomnia Last Admin: 10/23/24 21:23 Dose: 5 mg Allergies Allergies Allergy/AdvReac Type Severity Reaction Status Date / Time No Known Allergies Allergy Verified 10/20/24 11:08 Assessment & Plan Assessment & Plan (1) MDD (major depressive disorder), recurrent episode: Status: Acute Code(s): F33.9 - Major depressive disorder, recurrent, unspecified (2) Cocaine abuse: Status: Acute Code(s): F14.10 - Cocaine abuse, uncomplicated (3) Benzodiazepine abuse: Status: Acute Code(s): F13.10 - Sedative, hypnotic or anxiolytic abuse, uncomplicated Plan Patient is a 59-year-old female with history of MDD, cocaine use disorder and benzodiazepine abuse disorder, who presented to [facility] ER with her daughter due to confusion after taking too many prescription medications. Plan: CV 15 minute safety checks Obtain collateral Continue home medications Encourage groups Referral to outpatient therapist Discharge planning 10/22: Active on unit. attending some groups. 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 Pt reports feeling good today; pt stated, I'm not feeling confused today. I do feel like I'm still recuperating . denies SI/HI/VH/AH continue current tx plan 2: 3 day notice up on 10/26/24. attending some groups. 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 Pt reports feeling good today; she feels her medications are helping. denies any confusion. Hoping to return home soon. denies SI/HI/VH/AH continue current tx plan. 3: 3 day notice up on 10/26/24. Plan to discharge home tomorrow. Pt reports feeling good and plans on following up with her outpatient providers. denies SI/HI/VH/AH. Pt reports she plans on attending meetings to focus on her sobriety. Patient educated on: diagnosis and medication risk/benefits Reason for continued inpatient stay Substantial Risk for: stable for discharge Time Spent With Patient Time: Total time managing care of this patient today _20___ minutes.
[2024-10-24 20:00] VITALS: BP 113/67; PULSE 76; RESP 18; TEMP 36.4; O2SAT 99
[2024-10-24] MEDS: QUEtiapine Fumarate 100 MG TABLET PO (21:30)
[2024-10-24 21:31] VITALS: BP 118/70; PULSE 80
[2024-10-24] MEDS: Amitriptyline HCl 25 MG TABLET PO (21:31)
[2024-10-24] MEDS: Zolpidem Tartrate 5 MG TABLET PO (21:37)
[2024-10-24] MEDS: Acetaminophen 325 MG TABLET 650 MG PO (21:38)
[2024-10-25] MEDS: Omeprazole 20 MG CAPSULE.DR PO (06:24)
[2024-10-25 07:44] VITALS: BP 101/53; PULSE 58; RESP 16; TEMP 36.6; O2SAT 99
[2024-10-25 08:48] VITALS: BP 114/64; PULSE 71
[2024-10-25] MEDS: Naloxone HCl Nasal TAKE HOME 4 MG SPRAY 8 MG NOSTRILALT (08:49)
[2024-10-25] MEDS: cloNIDine HCL 0.1 MG TABLET PO (08:50)
[2024-10-25] MEDS: QUEtiapine Fumarate 50 MG TABLET PO (08:50)
[2024-10-25] MEDS: Cholecalciferol (Vitamin D3) 25 MCG TABLET 50 MCG PO (08:51)
[2024-10-25] MEDS: hydroCHLOROthiazide 25 MG TABLET PO (08:51)
[2024-10-25] MEDS: busPIRone HCl 10 MG TABLET 30 MG PO (08:52)
[2024-10-25] MEDS: NIFEdipine ER 30 MG TAB.ER.24 PO (08:52)
[2024-10-25] MEDS: Atorvastatin Calcium 40 MG TABLET PO (08:52)
[2024-10-25] MEDS: lisinopriL 40 MG TABLET PO (08:53)
[2024-10-25] MEDS: Escitalopram Oxalate 10 MG TABLET PO (08:53)
[2024-10-25] MEDS: Propranolol HCL 40 MG TABLET PO (08:53)
[2024-10-25] MEDS: Baclofen 10 MG TABLET PO (08:54)
--- NOTE | 2024-10-25 08:58 | PM.PSYDC ---
DS: Providers Provider Date of Service: 10/25/24 Date of admission: 10/21/24 12:10 Date of discharge: 10/25/24 Primary care physician: Kadi Tomlin MD Admitting clinician: Cira Brice Attending physician on admission: Rohan Whipple Attending physician on discharge: Rohan Whipple Discharging clinician: Cira Brice DS: Diagnosis Discharge Diagnosis (1) MDD (major depressive disorder), recurrent episode: Status: Acute (2) Cocaine abuse: Status: Acute (3) Benzodiazepine abuse: Status: Acute DS: Medications Discharge Medications Home Medications: Home Medications ?Medication ?Instructions ?Recorded ?Confirmed baclofen 10 mg tablet 10 mg PO TID PRN Muscle Spasm 09/05/20 10/20/24 hydrochlorothiazide 25 mg tablet 25 mg PO DAILY 09/05/20 10/20/24 cholecalciferol (vitamin D3) 50 50 mcg PO DAILY 08/27/21 10/20/24 mcg (2,000 unit) tablet albuterol sulfate 90 mcg/actuation 2 puff inhalation QID PRN Wheezing 02/13/22 10/20/24 aerosol inhaler atorvastatin 80 mg tablet 40 mg PO DAILY 02/13/22 10/20/24 sumatriptan succinate 100 mg tablet 100 mg PO DAILY MRX1 PRN headaches 02/13/22 10/20/24 amitriptyline 25 mg tablet 25 mg PO BEDTIME 11/27/23 10/20/24 inhalational spacing device #1 ea 11/27/23 (Compact Space Chamber) lisinopril 40 mg tablet 40 mg PO DAILY 11/27/23 10/20/24 nifedipine 30 mg tablet,extended 30 mg PO DAILY 11/27/23 10/20/24 release 24 hr propranolol 40 mg tablet 40 mg PO BID 11/27/23 10/20/24 zolpidem 5 mg tablet 5 mg PO BEDTIME PRN insomnia 11/27/23 10/20/24 Previous Rx's ?Medication ?Instructions ?Recorded clonidine HCl 0.1 mg tablet 0.1 mg PO BID #60 tabs 02/15/22 buspirone 30 mg tablet 30 mg PO BID 30 days #60 tabs 10/24/24 escitalopram oxalate 10 mg tablet 10 mg PO DAILY 30 days #30 tabs 10/24/24 omeprazole 20 mg capsule,delayed 20 mg PO BID@0630,1630 30 days #60 10/24/24 release caps quetiapine 100 mg tablet (Seroquel) 100 mg PO BEDTIME 30 days #30 tabs 10/24/24 quetiapine 50 mg tablet 50 mg PO BID@0900,1700 30 days #60 10/24/24 tabs Mental Status Exam Mental Status Exam Narrative: Pt is alert and oriented; behavior is cooperative and calm; dressed in casual attire; mood is described as good ; eye contact appropriate; Speech is normal rate, volume and not pressured; thought process is organized; Thought content is on discharge; denies SI/HI/AH/VH. Data Data Completed and Pending Completed studies during hospitalization [Text1]: 10/20/24 10/20/24 10/20/24 12:07 15:51 15:55 WBC 13.3 H RBC 3.78 L Hgb 9.8 L Hct 31.6 L MCV 83.6 MCH 25.9 L MCHC 31.0 RDW 15.7 Plt Count 268 MPV 10.0 Immature Gran % (Auto) 0.5 H Neut % (Auto) 81.9 H Lymph % (Auto) 11.2 L Simpson % (Auto) 4.2 Eos % (Auto) 1.9 Baso % (Auto) 0.3 Lymph # (Auto) 1.5 Simpson # (Auto) 0.6 Eos # (Auto) 0.3 Baso # (Auto) 0.0 Abs Immat Gran (auto) 0.06 H Absolute Neuts (auto) 10.9 H Absolute Nucleated RBC 0.000 Nucleated RBC % (auto) 0.0 PT 11.4 INR 1.0 VBG pH 7.42 VBG pCO2 40 VBG pO2 61 VBG HCO3 26 VBG O2 Saturation 90.0 VBG Base Excess 1.8 Sodium 142 Potassium 4.0 Chloride 109 H Carbon Dioxide 26 Anion Gap 11 L BUN 13 Creatinine 0.70 Estim Creat Clear Calc 84.6 Estimated GFR > 60 Random Glucose 98 Calcium 9.6 Total Bilirubin 0.2 AST 27 ALT 23 Alkaline Phosphatase 115 Ammonia 29 Total Creatine Kinase 105 Troponin I High Sens < 2.7 Total Protein 7.5 Albumin 3.8 Triglycerides Cholesterol LDL Cholesterol, Calc HDL Cholesterol Lipase 13 Urine Color Urine Appearance Urine pH Ur Specific Langdon Urine Protein Urine Glucose (UA) Urine Ketones Urine Blood Urine Nitrite Ur Leukocyte Esterase Urine RBC Urine WBC Ur Squamous Epith Cells Urine Bacteria Hyaline Casts Salicylates < 5.0 L Urine Opiates Screen Ur Buprenorphine Scrn Ur Oxycodone Screen Urine Methadone Screen Urine Fentanyl Screen Acetaminophen < 3 Ur Barbiturates Screen Ur Phencyclidine Scrn Ur Amphetamines Screen U Benzodiazepines Scrn Urine Cocaine Screen U Marijuana (THC) Screen Ethyl Alcohol < 10 Influenza Type A (PCR) NEGATIVE Influenza Type B (PCR) NEGATIVE RSV RNA Qual (PCR) NEGATIVE SARS-CoV-2 RNA (RT-PCR) NEGATIVE 10/20/24 10/21/24 10/22/24 16:11 14:10 06:57 WBC RBC Hgb Hct MCV MCH MCHC RDW Plt Count MPV Immature Gran % (Auto) Neut % (Auto) Lymph % (Auto) Simpson % (Auto) Eos % (Auto) Baso % (Auto) Lymph # (Auto) Simpson # (Auto) Eos # (Auto) Baso # (Auto) Abs Immat Gran (auto) Absolute Neuts (auto) Absolute Nucleated RBC Nucleated RBC % (auto) PT INR VBG pH VBG pCO2 VBG pO2 VBG HCO3 VBG O2 Saturation VBG Base Excess Sodium 142 Potassium 4.2 Chloride 110 H Carbon Dioxide 27 Anion Gap 9 L BUN 17 H Creatinine 0.78 Estim Creat Clear Calc 82.8 Estimated GFR > 60 Random Glucose 79 Calcium 9.4 Total Bilirubin 0.2 AST 26 ALT 17 Alkaline Phosphatase 105 Ammonia Total Creatine Kinase Troponin I High Sens Total Protein 6.9 Albumin 3.5 Triglycerides 114 Cholesterol 179 LDL Cholesterol, Calc 107 H HDL Cholesterol 50 Lipase Urine Color Yellow Urine Appearance Clear Urine pH 6.0 Ur Specific Langdon 1.015 Urine Protein Negative Urine Glucose (UA) Negative Urine Ketones Negative Urine Blood Negative Urine Nitrite Negative Ur Leukocyte Esterase Negative Urine RBC 0-2 Urine WBC 0-5 Ur Squamous Epith Cells 0-2 Urine Bacteria None Seen Hyaline Casts 0-2 Salicylates Urine Opiates Screen Not Detected Ur Buprenorphine Scrn Not Detected Ur Oxycodone Screen Not Detected Urine Methadone Screen Not Detected Urine Fentanyl Screen Not Detected Acetaminophen Ur Barbiturates Screen Not Detected Ur Phencyclidine Scrn Not Detected Ur Amphetamines Screen Not Detected U Benzodiazepines Scrn POSITIVE H Urine Cocaine Screen POSITIVE H U Marijuana (THC) Screen Not Detected Ethyl Alcohol Influenza Type A (PCR) Influenza Type B (PCR) RSV RNA Qual (PCR) SARS-CoV-2 RNA (RT-PCR) Imaging Diagnostic Imaging Impressions Head CT 10/20/24 11:08 IMPRESSION: No acute intracranial hemorrhage or acute brain abnormality by CT. 1.8 cm partially calcified low density lesion, pineal gland. Stable. Electronically signed by: Jimmy Singh MD 10/20/2024 12:04 PM [facility] DS: Summary Hospital Course Hospital Course: Patient is a 59-year-old female with history of MDD, cocaine use disorder and benzodiazepine abuse disorder, who presented to [facility] ER with her daughter due to confusion after taking too many prescription medications. Per crisis report, patient has been overtaking her medications due to increased depression and has been causing confusion. Patient reports she took too many medications due to wanting to sleep from increased life stressors as her uncle recently . She reported history of suicide attempts via overdosing and cutting herself. She reports sleep is good and appetite is poor. Crisis reached out and obtain collateral from patient's mother and brother who reported patient has been acting differently for the past month and suspect that she has been mixing her medications. They also believe that she may be using other substances. History of SI attempt 5 years ago via overdose and cutting. Has psychiatrist through [facility]. Utox positive for benzodiazepine and cocaine however, denied that she has been using substances During admission assessment, replenishment merchandising associate present. Alert and oriented x3. Calm and cooperative. Patient reports feeling depressed due to her uncle passing away 3 days ago. Patient stated, I took extra medications to go to sleep, then my mom came in and saw the bottle on the floor and thought I overdosed. I was just trying to sleep with everything going on with my uncle . Patient reports that she went to a friend's house and used cocaine; denies using prior to this. She denies history of suicide attempts but reports history of self-injurious behavior via cutting. Patient stated, I was cutting for relief, not to kill myself . Crisis reports patient has a history of SI attempts however patient denies this and states she only has a history of cutting. Patient reports that she used cocaine a few days ago at her friend's house to get some relief from her depression and reports prior to that she has been 10 years sober. Denies SI/HI/VH/AH. Plan: CV 15 minute safety checks Obtain collateral Continue home medications Encourage groups Referral to outpatient therapist Discharge planning Active on unit. attending some groups. replenishment merchandising associate present. Pt reports feeling good today; pt stated, I'm not feeling confused today. I do feel like I'm still recuperating . denies SI/HI/VH/AH continue current tx plan 3 day notice up on 10/26/24. attending some groups. replenishment merchandising associate present. Pt reports feeling good today; she feels her medications are helping. denies any confusion. Hoping to return home soon. denies SI/HI/VH/AH continue current tx plan. 3 day notice up on 10/26/24. Plan to discharge home tomorrow. Pt reports feeling good and plans on following up with her outpatient providers. denies SI/HI/VH/AH. Pt reports she plans on attending meetings to focus on her sobriety. Pt reports feeling good and ready to go ; denies SI/HI/VH/AH. Plan to follow up with outpatient providers. Status at Discharge Cognitive/behavioral status at discharge: Patient has insight and demonstrates good judgment in terms of wanting to pursue treatment. Patient has a safety plan that includes presenting to the closest ER or calling 911 if feeling unsafe. Functional status at discharge: independent ambulation Overall status at discharge: patient is back to baseline Time Spent with Patient Time attestation: Total time managing care of this patient today _20___ minutes. Time spent: Less than 30 minutes Discharge Plan Discharge Anticipated Discharge Date/Time: 10/25/24 11:30 Patient Disposition: Home, Self-Care Discharge Diagnosis: MDD, cocaine use d/o, benzodiazepine abuse Referrals: Joni Milner (Therapy) [Other] - 10/28/24 1:00 pm (IN OFFICE APPOINTMENT -Please arrive 15 minutes early to your appointment in order to complete necessary paperwork. ) Mia Mooney (Psychiatry) [Other] - 11/22/24 9:00 am (TELEHEALTH APPOINTMENT -Psychiatric Evaluation ) Mia Mooney (Psychiatry) [Other] - 12/20/24 10:20 am (TELEHEALTH APPOINTMENT -Medication Management ) Kadi Tomlin MD [Primary Care Provider] - 11/03/24 10:45 am (10-24-24 Your follow up appt has been scheduled with Dr. Tomlin on 2-13-25 @ 10:45am.) Discharge Medications: New omeprazole 20 mg Capsule,Delayed Release(Dr/Ec) 20 mg PO BID@0630,1630 30 Days Qty: 60 0RF Continued baclofen 10 mg Tablet 10 mg PO TID PRN (Reason: Muscle Spasm) hydrochlorothiazide 25 mg Tablet 25 mg PO DAILY sumatriptan succinate 100 mg tablet 100 mg PO DAILY MRX1 PRN (Reason: headaches) atorvastatin 80 mg Tablet 40 mg PO DAILY albuterol sulfate 90 mcg/actuation Hfa Aerosol Inhaler 2 puff INHALATION QID PRN (Reason: Wheezing) clonidine HCl 0.1 mg Tablet 0.1 mg PO BID Qty: 60 0RF Protocol: Hold for SBP< HOLD for SBP < : 90 quetiapine [Seroquel] 100 mg Tablet 100 mg PO BEDTIME 30 Days Qty: 30 0RF escitalopram oxalate 10 mg tablet 10 mg PO DAILY 30 Days Qty: 30 0RF quetiapine 50 mg tablet 50 mg PO BID@0900,1700 30 Days Qty: 60 0RF cholecalciferol (vitamin D3) 50 mcg (2,000 unit) tablet 50 mcg PO DAILY zolpidem 5 mg tablet 5 mg PO BEDTIME PRN (Reason: insomnia) (DME) Compact Space Chamber Spacer See Rx Instructions .ROUTE Q4H Qty: 1 Rx Instructions: As directed nifedipine 30 mg tablet extended release 24hr 30 mg PO DAILY propranolol 40 mg tablet 40 mg PO BID amitriptyline 25 mg tablet 25 mg PO BEDTIME lisinopril 40 mg tablet 40 mg PO DAILY Changed buspirone 30 mg tablet 30 mg PO BID 30 Days Qty: 60 0RF Discharge Orders: Discharge Order (Routine); Ordered 10/25/24 Ordered By: Cira Brice Diet: Regular diet Activity on Discharge: As tolerated Stand Alone Forms: Patient Portal Discharge page, Community Support Print Language: Armenian Care Plan Goals: Maintain mood and safe behaviors Take medications as prescribed Continue to pursue sobriety Practice coping skills Continue with outpatient providers and reach out to them as needed Health Concerns: Mood stability and behaviors Sobriety Plan of Treatment: Follow up with your PCP, psychiatric provider and other outpatient providers regarding above concerns Take medications as prescribed Assessment: Patient has insight and demonstrates good judgment in terms of wanting to pursue treatment. Patient has a safety plan that includes presenting to the closest ER or calling 911 if feeling unsafe.
== END 2024-10-25 12:00 | disposition home or self-care (01) | DRG 751 ==
LOC: HO.ED 20:25 → HO.PADLT16 10-21 12:16
PROVIDERS: Physician Assistant; Admitting Provider Registered Nurse; Emergency Provider Emergency Medicine; PCP General Practice; Responsible Provider Registered Nurse; Visit Provider Psychiatry & Neurology Psychiatry
DX: F33.9 Major depressive disorder, recurrent, unspecified (principal); E03.9 Hypothyroidism, unspecified; J45.909 Unspecified asthma, uncomplicated; F14.10 Cocaine abuse, uncomplicated; F13.10 Sedative, hypnotic or anxiolytic abuse, uncomplicated; Z20.822 Contact with and (suspected) exposure to COVID-19; Z79.899 Other long term (current) drug therapy
CPT/HCPCS: 0241U; 36415; 70450; 71045; 80053; 80061; 80143; 80179; 80307; 81001; 82140; 82550; 82803; 83690; 84484; 85025; 85610; 90656; 93005; 99285; S9485

== ENCOUNTER → 2024-10-20 11:07 | Outpatient (BNV) | payer MEDICAID, SELFPAY | PROVIDERS: Emergency Provider Emergency Medicine; PCP General Practice; Visit Provider Internal Medicine | DX: R41.82 Altered mental status, unspecified (principal) | CPT/HCPCS: 93010 ==

== ENCOUNTER → 2024-10-20 11:08 | Outpatient (BNV) | payer MEDICAID, SELFPAY | PROVIDERS: Emergency Provider Emergency Medicine; PCP General Practice; Visit Provider Radiology Diagnostic Radiology | DX: R05.9 Cough, unspecified (principal); R41.82 Altered mental status, unspecified | CPT/HCPCS: 70450; 71045 ==

== ENCOUNTER → 2024-10-21 12:10 | Outpatient (BNV) | payer OTHER, SELFPAY | PROVIDERS: Admitting Provider Registered Nurse; Emergency Provider Emergency Medicine; PCP General Practice; Responsible Provider Registered Nurse; Visit Provider Registered Nurse | DX: F33.2 Major depressive disorder, recurrent severe without psychotic features (principal); F14.10 Cocaine abuse, uncomplicated; F13.10 Sedative, hypnotic or anxiolytic abuse, uncomplicated | CPT/HCPCS: 99231; 99232; 99233 ==

== ENCOUNTER 2024-11-04 18:03 | Outpatient (REF) | payer OTHER, SELFPAY ==
--- OUTSIDE RECORDS SUMMARY | 2024-11-04 18:05 | XMS_ITS | Encounter Summary ---
Author Organization [employer] Address [address] [facility] [address] [place] [address] Care Team Providers Care Billiard Table Mechanic Name Role Phone Kadi Tomlin MD Primary Care Provider [phone] Reason for Visit * Reason Comments Med Refill Encounter Details Date Type Department Care Team ([facility] st Contact Info) Description 10/30/2024 Refill [facility] [address] [place], [place] [phone] Kadi Tomlin MD [address] [place], [place] [phone] Social History Tobacco Use Types Packs/Day Years [...] housing situation today? I have mateo woo 10/28/[address] you li ve. Do you have problems with any of the following? None of the above 10/28/2024 Food Insecurity Answer Date Recorded Within the past 12 months, y ou worried that your food would run out before you got money to buy more: Never True 10/28/2024 Within the past 12 months,th e food you bought just didn't last and you didn't have enough money to get more: Never True 03/2025 Transportation Answer Date Recorded In the past 12 months, has l ack of transportation kept you from medical appts, meetings, work or from getting things needed for daily living? No 10/28/2024 Utilities Answer Date Recorded In the past 12 months, has t he electric, gas, oil or water company threatened to shut off services in your home? No 10/28/2024 Depression Answer Date Recorded Patient Health Questionnaire-2 Score 6 03/28/2024 Internet Access Answer Date Recorded Internet Access Q1 Yes 10/28/2024 Internet Access Q2 Not on file 10/28/2024 Comments Unknown Sex and Gender Information Value Date Recorded Sex Assigned at Female 07/21/2022 10:14 AM EDT Legal Sex Female 10:14 AM EDT Gender Identity Female 07/21/2022 10:14 AM EDT Sexual Orientation Straight 07/21/2022 10 :14 AM EDT documented as of this encounter Plan of Treatment Not on file documented as of this encounter Visit Diagnoses Not on filedocumented in this encounter Additional Health Concerns Assessment Noted Time PHQ-9 Depression Total Score: 15 024 9:17 AM EDT documented as of this encounter Care Teams Billiard Table Mechanic Relationship Specialty Start Date End Date Kadi Tomlin MD [address] [place] [address] PCP - General Family Medicine 05/21/21 documented as of this encounter
--- OUTSIDE RECORDS SUMMARY | 2024-11-04 18:05 | XMS_ITS | Encounter Summary ---
Author Organization [employer] Address [address] [facility] 7t [place] [address] Care Team Providers Care Rack Production Worker Name Role Phone Kadi Tomlin MD Primary Care Provider [phone] Reason for Visit * Reason Comments Care Coordination Outreach Encounter Details Date Type Department Care Team (Latest Contact Info) Description 10/28/2024 Patient Outreach [facility] [address] [place], [place] [phone] Kadi Tomlin MD [address] [place], [place] [phone] Care Coordination (Outreach) Social History Tobacco Use Types Packs/Day Years [...] AM EDT documented as of this encounter Progress Notes * Mary Jo Hernandez - 10/28/2024 9:16 AM EST CHW Mary Jo Hernandez, placed outbound call to patient introducing herself from [facility], in regards to offering services. Patient's name and was confirmed. Patient agrees to participate in program. Appt. for initial assessment scheduled for 11/03/24 @ 1:00 PM. CHW reinforced direct contact information or for any additional questions or concerns and extended clinic hours on Mondays and Wednesdays, and Walk-In Urgent Care Located in [facility]. Patient provided with after-hours line for [facility], , which offer night time triageservice and option to transfer to interventional tech provider if needed. Patient verbalizes understanding, and able to repeat back to automobile and property underwriter. documented in this encounter Plan of Treatment Not on file documented as of this encounter Visit Diagnoses Not on filedocumented in this encounter Additional Health Concerns Assessment Noted Time PHQ-9 Depression Total Score: 15 024 9:17 AM EDT documented as of this encounter Care Teams Rack Production Worker Relationship Specialty Start Date End Date Kadi Tomlin MD [address] [place] [id number] PCP - General Family Medicine 05/21/21 documented as of this encounter
--- OUTSIDE RECORDS SUMMARY | 2024-11-04 18:05 | XMS_ITS | Encounter Summary ---
Author Organization [employer] Address [address] [facility] [address] [place] [address] Care Team Providers Care Cash Grain Grower Name Role Phone Kadi Tomlin MD Primary Care Provider [phone] Reason for Visit * Reason Comments Med Refill Encounter Details Date Type Department Care Team ([facility] st Contact Info) Description 10/17/2024 Refill [facility] [address] [place], [place] [phone] Kadi Tomlin MD [address] [place], [place] [phone] Benign hypertension Social History Tobacco Use Types [...] documented as of this encounter Care Teams Cash Grain Grower Relationship Specialty Start Date End Date Kadi Tomlin MD [address] [place] [id number] PCP - General Family Medicine 05/21/21 documented as of this encounter
--- OUTSIDE RECORDS SUMMARY | 2024-11-04 18:05 | XMS_ITS | Encounter Summary ---
Author Organization [employer] Address [address] [facility] [address] [place] [address] Care Team Providers Care Paint Roller Covermaker Name Role Phone Kadi Tomlin MD Primary Care Provider [phone] Encounter Details Date Type Department Care Team (Latest Contact Info) Description 11/04/2024 Travel Social History Tobacco Use Types Packs/Day Years [...] documented as of this encounter Care Teams Paint Roller Covermaker Relationship Specialty Start Date End Date Kadi Tomlin MD [address] [place] [id number] PCP - General Family Medicine 05/21/21 documented as of this encounter
--- OUTSIDE RECORDS SUMMARY | 2024-11-04 18:05 | XMS_ITS | Encounter Summary ---
Author Organization [employer] Address [address] [facility] [address] [place] [address] Care Team Providers Care Shell Trim Tool Setter Name Role Phone Kadi Tomlin MD Primary Care Provider [phone] Encounter Details Date Type Department Care Team (Late st Contact Info) Description 11/03/2024 Orders Only [facility] MED[facility] [address] [place], [place] [phone] ProviderTracey MD Social History Tobacco Use Types [...] is your housing situation today? I have mateohira woo 10/28/[address] you [...] t he electric, gas, oil or water [employer] threatened to shut off services in your [...] on file documented as of this encounter Procedures Procedure Name Priority Date/Time Associated Diagnosis Comments HM COLONOSCOPY Routine 06/09/2024 11:24 AM EDT documented in this encounter Results * Hm Colonoscopy (06/09/2024 11:24 AM EDT) Historical Provider HEALTH MAINTENANCE Final Result documented in this encounter Visit Diagnoses Not on filedocumented in this encounter Additional Health Concerns Assessment Noted Time PHQ-9 Depression Total Score: 15 024 9:17 AM EDT documented as of this encounter Care Teams Shell Trim Tool Setter Relationship Specialty Start Date End Date Kadi Tomlin MD [address] [place] [id number] PCP - General Family Medicine 05/21/21 documented as of this encounter
--- OUTSIDE RECORDS SUMMARY | 2024-11-04 18:05 | XMS_ITS | Encounter Summary ---
Author Organization [employer] Address [address] [facility] [address] [place] [address] Care Team Providers Care Inspector Type Name Role Phone Kadi Tomlin MD Primary Care Provider [phone] Reason for Visit * Reason Onset Date Comments No Show 11/03/2024 Encounter Details Date Type Department Care Team ([facility] st Contact Info) Description 11/03/2024 Telephone [facility] MED[facility] [address] [place], [place] [phone] Myesha Ellington MD [address] [place], [place] [phone] No Show Social History Tobacco Use Types Packs/Day Years [...] encounter Miscellaneous Notes * Telephone Encounter - Anastasiya Phillips RN - 11/03/2024 11:16 AM EST Noted. Patient is scheduled with PCP for an appointment tomorrow for a PAP. RN will add HDF to appointment details. No further f/u needed at this time. * Telephone Encounter - Sandra Swann - 11/03/2024 11:14 AM EST Pt no showed to appt on 11/03/24 documented in this encounter Plan of Treatment Not on file documented as of this encounter Visit Diagnoses Not on filedocumented in this encounter Additional Health Concerns Assessment Noted Time PHQ-9 Depression Total Score: 15 024 9:17 AM EDT documented as of this encounter Care Teams Inspector Type Relationship Specialty Start Date End Date Kadi Tomlin MD [address] [place] [address] PCP - General Family Medicine 05/21/21 documented as of this encounter
--- OUTSIDE RECORDS SUMMARY | 2024-11-04 18:05 | XMS_ITS | Encounter Summary ---
Author Organization [employer] Address [address] [facility] 7t [place] [address] Care Team Providers Care Peanut Sorter Name Role Phone Kadi Tomlin MD Primary Care Provider [phone] Encounter Details Date Type Department Care Team (Late st Contact Info) Description 11/28/2022 Orders Only [facility] MEDICINE [address] [place], [place] [phone] Kadi Tomlin MD [address] [place], [place] [phone] Other hyperlipidemia (Primary Dx); Pain of lower [...] EDT Narrative 12/17/2022 8:44 AM EDT ? [facility] ?[address] ?[place] [address] ?XRay Report ? Signed ? Patient: Danika Morales ?MR#: [id number] ?? 2 ? : 1965 ?Acct:[id number] ? Age/Sex: 57 / F ?ADM Date: 12/10/22 ? Loc: HO.XRAY ? Attending Dr: Kadi Tomlin MD ? Ordering Physician: Kadi Tomlin ?? Date of Service: 12/10/22 ?? Procedure(s): XR wrist LT min 3V ?? Accession Number(s): [id number] ? cc: Kadi Tomlin ? EXAMINATION: ?? [...] signed by Nick Chino MD in OV> ?12/17/ 0841 ? DD/ 1048 ? TD/TT: ? Regional Facilities Specialist: MSM ? Procedure Note Donfaustinater, Image - 01/05/2023 [place] [address] XRay Report Signed Patient: Koby Morales#: [id number] 2 : 1965Acct:[id number] Age/Sex: 57 / FADM Date: 12/10/22 Loc: HO.GLADIS Attending Dr: Kadi Tomlin MD Ordering Physician: Kadi Tomlin Date of Service: 12/10/22 Procedure(s): XR wrist LT min 3V Accession Number(s): [id number] cc: Kadi Tomlin EXAMINATION: XR ELBOW, LEFT [...] in OV> 12/17/22 0841 DD/ 1048 TD/TT: Regional Facilities Specialist: BLANCA [facility] External Provider IMG XR PROCEDURES Final Result * XR Elbow 1-2 Views Left (12/10/2022 10:48 AM EDT) Anatomical Region Laterality Modality Upper Extremities, Elbow Left Radiogr aphic Imaging 12/10/2022 10:4 8 AM EDT Narrative 12/17/2022 8:44 AM EDT ? [facility] ?[address] ?[place] [address] ?XRay Report ? Signed ? Patient: Andrew,Danika ?MR#: [id number] ?? 2 ? : 1965 ?Acct:[id number] ? Age/Sex: 57 / F ?ADM Date: 12/10/22 ? Loc: HO.XRAY ? Attending Dr: Kadi Tomlin MD ? Ordering Physician: Kadi Tomlin ?? Date of Service: 12/10/22 ?? Procedure(s): XR elbow LT 2V ?? Accession Number(s): [id number] ? cc: Kadi Tomlin ? EXAMINATION: ?? [...] 0841 ? DD/ 1048 ? TD/TT: ? Regional Facilities Specialist: BLANCA ? Procedure Note Donfaustinater, Image - 12/17/[address] [address] XRay Report Signed Patient: Koby Morales#: [id number] 2 : 1965Acct:[id number] Age/Sex: 57 / FADM Date: 12/10/22 Loc: HO.GLADIS Attending Dr: Kadi Tomlin MD Ordering Physician: Kadi Tomlin Date of Service: 12/10/22 Procedure(s): XR elbow LT 2V Accession Number(s): [id number] cc: Kadi Tomlin EXAMINATION: XR ELBOW, LEFT [...] exam. Unremarkable left shoulder exam. Dictated By: Nikc Chino MD Signed By: <Electronically signed by Nick Chino MD in OV> 12/17/22 0841 DD/ 1048 TD/TT: Regional Facilities Specialist: BLANCA [facility] External Provider IMG XR PROCEDURES Final Result * XR Shoulder 2+ Views Left (12/10/2022 10:48 AM EDT) Anatomical Region Laterality Modality Upper Extremities, Shoulder Left Radi ographic Imaging 12/10/2022 10:4 8 AM EDT Narrative 12/17/2022 8:44 AM EDT ? [facility] ?[address] ?[place] [address] ?XRay Report ? Signed ? Patient: Andrew,Danika ?MR#: [id number] ?? 2 ? : 1965 ?Acct:[id number] ? Age/Sex: 57 / F ?ADM Date: 12/10/22 ? Loc: HO.XRAY ? Attending Dr: Kadi Tomlin MD ? Ordering Physician: Kadi Tomlin ?? Date of Service: 12/10/22 ?? Procedure(s): XR shoulder LT min 2V ?? Accession Number(s): [id number] ? cc: Kadi Tomlin ? EXAMINATION: ?? [...] Unremarkable left shoulder exam. ? Dictated By: ?Lulú,Nick S MD ? Signed By: ?<Electronically signed by Nick S Lulú, MD in OV> ?12/17/22 0841 ? DD/DT: //8 ? TD/TT: ? Regional Facilities Specialist: MSM ? Procedure Note Fela, Image - 12/17/[address] [address] XRay Report Signed Patient: Koby Morales#: [id number] 2 : 1965Acct:[id number] Age/Sex: 57 / FADM Date: 12/10/22 Loc: HO.XRAY Attending Dr: Kadi Tomlin MD Ordering Physician: Kadi Tomlin Date of Service: 12/10/22 Procedure(s): XR shoulder LT min 2V Accession Number(s): [id number] cc: Kadi Tomlin EXAMINATION: XR ELBOW, LEFT [...] in OV> 12/17/22 0841 DD/ 1048 TD/TT: Regional Facilities Specialist: BLANCA [facility] External Provider IMG XR PROCEDURES Final Result documented in this encounter Visit Diagnoses Diagnosis Other hyperlipidemia- Primary Pain of lower extremity, unspecified laterality documented in this encounter Additional Health Concerns Assessment Noted Time PHQ-9 Depression Total Score: 7 11/11/19 23 8:54 AM EST documented as of this encounter Care Teams Peanut Sorter Relationship Specialty Start Date End Date Kadi Tomlin MD [address] [place] [address] PCP - General Family Medicine 05/21/21 documented as of this encounter
--- OUTSIDE RECORDS SUMMARY | 2024-11-04 18:05 | XMS_ITS | Clinical Summary ---
Author Organization [facility] Address [address] [place] [address] Care Team Providers Care Printed Circuit Boards Contact Printer Name Role Phone Unavailable Primary Care Provider [...] 2012 Fecal DNA 2012 Flexible Sigmoidoscopy 2012 Noy-[id number]-[id number] ( season) 2024 05/05/2022, 11/18/2021, 05/29/2021, Additional [...] Discontinued Vaginal Pap Discontinued Vulvoscopy Discontinued Insurance [place]
--- OUTSIDE RECORDS SUMMARY | 2024-11-04 18:05 | XMS_ITS | Encounter Summary ---
Author Organization [employer] Address [address] [facility] 7t [place] [address] Care Team Providers Care Chemical Weigher Name Role Phone Kadi Tomlin MD Primary Care Provider [phone] Reason for Visit * Reason Comments Care Coordination Outreach Encounter Details Date Type Department Care Team (Latest Contact Info) Description 11/02/2024 Patient Outreach [facility] MED & PEDS [address] [place], [place] [phone] Kadi Tomlin MD [address] [place], [place] [phone] Care Coordination (Outreach) Social History Tobacco Use [...] Progress Notes * Mary Jo Hernandez - 11/02/2024 1:08 PM EST CHW Mary Jo Hernandez placed outbound call to patient introducing herself from [facility] CM Department, in regards to remind patient of Adult Complex Care program initial assessment appt for tomorrow 11/03/24 @ 1:00 PM via telephone. Patient's name and was confirmed. Patient is aware and confirmed will be available for call and has no barriers on attending call. Patient verbalized understanding and agrees with plan. documented in this encounter Plan of Treatment Not on file documented as of this encounter Visit Diagnoses Not on filedocumented in this encounter Additional Health Concerns Assessment Noted Time PHQ-9 Depression Total Score: 15 024 9:17 AM EDT documented as of this encounter Care Teams Chemical Weigher Relationship Specialty Start Date End Date Kadi Tomlin MD [address] [place] [address] PCP - General Family Medicine 05/21/21 documented as of this encounter
--- OUTSIDE RECORDS SUMMARY | 2024-11-04 18:05 | XMS_ITS | Encounter Summary ---
Author Organization [employer] Address [address] [facility] 7t [place] [address] Care Team Providers Care Recycling Director Name Role Phone Kadi Tomlin MD Primary Care Provider [phone] Reason for Visit * Reason Onset Date Comments Appointment Request 03/27/2023 Encounter Details Date Type Department Care Team ([facility] st Contact Info) Description 03/27/2023 Telephone [facility] MEDICINE [address] [place], [place] [phone] Kadi Tomlin MD [address] [place], [place] [phone] Appointment Request Social History Tobacco Use Types [...] with Enoc Boles. Please contact pt at [phone] documented in this encounter Plan of Treatment Not on file documented as of this encounter Visit Diagnoses Not on filedocumented in this encounter Additional Health Concerns Assessment Noted Time PHQ-9 Depression Total Score: 9 01/09/20 23 9:12 AM EDT documented as of this encounter Care Teams Recycling Director Relationship Specialty Start Date End Date Kadi Tomlin MD [address] [place] [address] PCP - General Family Medicine 05/21/21 documented as of this encounter
--- OUTSIDE RECORDS SUMMARY | 2024-11-04 18:05 | XMS_ITS | Encounter Summary ---
Author Organization [employer] Address [address] [facility] 7t [place] [address] Care Team Providers Care Equalizing Saw Operator Name Role Phone Kadi Tomlin MD Primary Care Provider [phone] Reason for Visit * Reason Comments Pain Right shoulder for a bout 3 months Encounter Details Date Type Department Care Team (Latest Contact Info) Description 11/04/2024 3:30 PM EST Procedure Visit [facility] MEDICINE [address] [place], [place] [phone] Kadi Tomlin MD [address] [place], [place] [phone] Screening for cervical cancer (Primary Dx) Social History Tobacco Use Types Packs/Day Years [...] AM EDT documented as of this encounter Last Filed Vital Signs Vital Sign Reading Time Taken Comments Blood Pressure 130/82 11/04/2024 3:41 PM EST Pulse 69 11/04/2024 3:41 PM EST Temperature 36.2 ??C (97.2 ??F) 11/04/2024 3:41 PM ES T Respiratory Rate 16 11/04/2024 3:41 PM EST Oxygen Saturation 100% 11/04/2024 3:41 PM EST Inhaled Oxygen Concentration - - Weight 85.7 kg (189 lb) 11/04/2024 3:41 PM EST Height 162.6 cm (5' 4 ) 11/04/2024 3:41 PM EST Body Mass Index 32.44 11/04/2024 3:41 PM EST documented in this encounter Plan of Treatment Scheduled Orders Name Type Priority Associated Diagnoses Orde r Schedule ThinPrep Imaging Pap and HPV mRNA E6/E7 with Reflex to HPV 16,18/45 Pathology and Cytology Routine Screening for cervical cancer Expected: 11/04/2024 (Approximate), Expires: 11/04/2025 documented as of this encounter Visit Diagnoses Diagnosis Screening for cervical cancer- Primary Screening for malignant neoplasm of the cervix documented in this encounter Additional Health Concerns Assessment Noted Time PHQ-9 Depression Total Score: 15 024 9:17 AM EDT documented as of this encounter Care Teams Equalizing Saw Operator Relationship Specialty Start Date End Date Kadi Tomlin MD [address] [place] [address] PCP - General Family Medicine 05/21/21 documented as of this encounter
--- OUTSIDE RECORDS SUMMARY | 2024-11-04 18:05 | XMS_ITS | Encounter Summary ---
Author Organization [employer] Address [address] [place] [address] 7t [place] [address] Care Team Providers Care Dinkey Engine Operator Name Role Phone Kadi Tomlin MD Primary Care Provider [phone] Reason for Visit * Reason Comments Med Refill Encounter Details Date Type Department Care Team (Late st Contact Info) Description 03/25/2023 Refill [facility] CHC MED & PEDS [address] [place], [place] [phone] Enoc Boles FNP Depressive disorder Social History [...] documented as of this encounter Care Teams Dinkey Engine Operator Relationship Specialty Start Date End Date Kadi Tomlin MD [address] [place] [address] PCP - General Family Medicine 05/21/21 documented as of this encounter
--- OUTSIDE RECORDS SUMMARY | 2024-11-04 18:05 | XMS_ITS | Encounter Summary ---
Author Organization [employer] Address [address] [place] [address] 7t [place] [address] Care Team Providers Care Ingredient Scaler Helper Name Role Phone Kadi Tomlin MD Primary Care Provider [phone] Reason for Visit * Reason Onset Date Comments Appointment Request 12/25/2022 Encounter Details Date Type Department Care Team ([facility] st Contact Info) Description 12/25/2022 Telephone [facility] MEDICINE [address] [place], [place] [phone] Kadi Tomlin MD [address] [place], [place] [phone] Appointment Request Social History Tobacco Use Types [...] schedule an appt Please contact pt at [phone] documented in this encounter Plan of Treatment Not on file documented as of this encounter Visit Diagnoses Not on filedocumented in this encounter Additional Health Concerns Assessment Noted Time PHQ-9 Depression Total Score: 7 11/11/19 23 8:54 AM EST documented as of this encounter Care Teams Ingredient Scaler Helper Relationship Specialty Start Date End Date Kadi Tomlin MD [address] [place] [address] PCP - General Family Medicine 05/21/21 documented as of this encounter
--- OUTSIDE RECORDS SUMMARY | 2024-11-04 18:05 | XMS_ITS | Encounter Summary ---
Author Organization [employer] Address [address] [facility] [address]t [place] [address] Care Team Providers Care Barn Hand Name Role Phone Kadi Tomlin MD Primary Care Provider [phone] Reason for Visit * Reason Onset Date Comments Care Coordination 11/04/2024 C3 initial a ssessment/ enrollment Encounter Details Date Type Department Care Team (Late st Contact Info) Description 11/04/2024 Telephone [facility] CHC MED & PEDS [address] [place], [place] [phone] Kadi Tomlin MD [address] [place] [address] Care Coordination ([facility] initial assessment/ enrollment) Social History Tobacco Use Types Packs/Day Years [...] your housing situation today? I have mateo amna 10/28/[address] you li [...] encounter Miscellaneous Notes * Telephone Encounter - Indira Vallejo RN - 11/04/2024 8:00 AM EST LEE Vallejo RN placed outbound call to patient for agreed upon time for initial assessment for enrollment into Adult Care Management Program. Patient's name, , and address were verified. Pt states she has an upcoming appointment with GI on 12/13, pain management and ortho on 12/13. Pt states she uses eye glasses and has seen the pest control specialist within 12 months. Pt states she hasn't seen the dentist over 12 months. CM will send pt the list of dentists so that pt can call and be reconnected to services. Pt states she has a form of transportation to all her medical appointments. Pt c/o chronic left knee, right arm and shoulder pain with dressing. Pt states she has an upcoming appt with her new therapist and psychiatrist to establish care. Pt denies depression and anxiety at this time. Pt states she feels safe in her home, denies drinking, smoking or taking any illegal drugs. 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 Pt c/o imbalance gaitwith ambulation and is requesting for STEAM PLANT OPERATOR services. CM gave patient the number to [facility]ien to call so that she can be evaluated for STEAM PLANT OPERATOR services. Pt states her daughter is her HCP and reports compliance with all her medications. Pt denies any personal goals at this time. CM plan includes health education, connecting pt to resources, appointment reminder and advocating for patient. Care management program explained and contact information given. Patient verbalizes understanding, and able to repeat back to freelance copywriter. A follow up call will be placed within 10 days, patient agrees with plan. LEE Vallejo RN, provided notification to PCP Dr. Tomlin of patient's enrollment into [facility]3 Complex Care Program. LEE Vallejo RN, completed care plan and sent to HIM to be scanned into the medical record. PCP notified and awaiting review from provider. documented in this encounter Plan of Treatment Not on file documented as of this encounter Visit Diagnoses Not on filedocumented in this encounter Additional Health Concerns Assessment Noted Time PHQ-9 Depression Total Score: 15 024 9:17 AM EDT documented as of this encounter Care Teams Barn Hand Relationship Specialty Start Date End Date Kadi Tomlin MD [address] [place] [address] PCP - General Family Medicine 05/21/21 documented as of this encounter
--- OUTSIDE RECORDS SUMMARY | 2024-11-04 18:05 | XMS_ITS | Clinical Summary ---
Author Organization [employer] Address [address] [facility] 7[address] [place] [address] Care Team Providers Care Assisted Living Manager Name Role Phone Kadi Tomlin MD Primary Care Provider [phone] Allergies No known active allergies Medications * [...] or split. 90 tablet 3 11/02/19 24 Active lisinopril 40 MG tabletIndication s:Benign hypertension [...] 24 Active cholecalciferol (Vitamin D-3) 50 MCG (1999 UT) tabletIndication s:Vitamin D deficiency Take 1 tablet by mouth daily 90 tablet 3 04/11/20 24 Active ibuprofen 400 MG tablet Take [...] DAY 90 tablet 3 10/18/19 25 Active baclofen (Lioresal) 10 MG tablet TAKE 1 TABLET BY MOUTH THREE TIMES DAILY IN THE MORNING, AT NOON, AND AT BEDTIME NEEDED FOR MUSCLE SPASMS 60 tablet 1 10/31/19 25 Active hydroCHLOROthiaz tim (HYDRODiuril) 25 MG tabletIndication s:Benign hypertension TAKE 1 TABLET BY MOUTH EVERY DAY 90 tablet 3 10/19/19 24 025 Discontinued baclofen (Lioresal) 10 MG tablet TAKE 1 TABLET BY MOUTH THREE TIMES DAILY IN THE MORNING, AT NOON, AND AT BEDTIME NEEDED FOR MUSCLE SPASMS 60 tablet 1 07/05/20 24 025 Discontinued Diclofenac Sodium 1 % [...] resolved by tomorrow morning, to come to [facility] or ER Assessment & Plan (11/04/2023 10:45 [...] and is unsure about med delivery from [facility] in [place]) as well as where her meds are [...] BP remains uncontrolled - reviewed stroke and [place] symptoms, to ER/EMS if those symptoms occur [...] She is still awaiting first appointment at [facility] outpatient agency, and I have urged her to call them to F/U. Since I will be retiring, patient will be transferred to new [facility] psychiatric prescriber. Pt is aware that these will be televisits and that the provider will not be an employee of [facility]. She gives permission to share PHI. Any issues or concerns, contact [facility]. All her questions were answered and [...] for serotonin syndrome. Awaiting first appointment at [facility] outpatient agency. On 07/20/2023 provider informed pt [...] now staying with mother. Will refer for [facility] support. Still doing OK with medications. Continue [...] Encounters Date Type Department Care Team Description 11/04/2024 3:30 PM EST Procedure Visit [address] [address] Kadi Tomlin MD Screening for cervical cancer (Primary Dx) 11/04/2024 Travel 11/04/2024 Telephone [facility] [address] [place] [address] Kadi Tomlin MD Care Coordination ([facility] initial assessment/ enrollment) 11/03/2024 Orders Only [address] [address] Tracey Desai MD 11/03/[address] [address] Myesha Ellington MD No Show 11/02/2024 Patient Outreach [facility] [address] [place] [address] Kadi Tomlin MD Care Coordination (Outreach) 10/30/2024 Refill [facility] [address] [place] [phone] Kadi Tomlin MD 10/28/2024 Patient Outreach [facility] [address] [place] [address] Kadi Tomlin MD Care Coordination (Outreach) 10/24/[address] [address] Kadi Tomlin MD Transition Of Care (Tcm) (HDF- scheduled and SDOH screening will need to be complete it in office) 10/20/2024 Orders Only [facility] External Provider, [facility] 10/17/2024 Refill [facility] [address] [place] [address] Kadi Tomlin MD Benign hypertension 10/11/2024 Refill [facility] [address] [place] [address] Tushar Nickerson MD 10/03/2024 Telephone [facility] [address] [place] [address] Esperanza Camacho [place] Appointment Request 08/30/2024 Refill [facility] [address] [place] [address] Carmen Valenzuela FNP from Last 3 Months Immunizations Name Administration [...] Mass Index 32.44 11/04/2024 3:41 PM EST Plan of Treatment Health Maintenance Due Date Last Done Comments CT Colonography 1967 FIT DNA/Cologuard 1967 FIT 1967 FOBT 1967 Sigmoidoscopy 1967 Alcohol/Substance Use Screening 1979 Pneumococcal Vaccine: 50+ Years (1 of 2 - PCV) 1986 Pap Smear 1988 Cervical Cancer Screening 07/02/2022 HPV/Cotest 07/02/2022 07/02/2017 COVID-19 Vaccine ( season) 2024 05/05/2022, 05/05/2022, 11/18/2021, Additional history exists Mammogram 07/14/2024 07/14/2023, 04/22, 05/15/2020, Additional history exists Depression Monitoring (PHQ-9) 09/28/2024 03/28/2024, 03/28/2024 Depression Screening 03/28/2025 03/28/2024, 03/28/20 24 Colonoscopy 06/09/2025 06/09/2024, 09/07/2018 Colorectal Cancer Screening 06/09/2025 Lipid Panel 08/21/2025 08/21/2020 SDOH Screening 10/28/2025 10/28/2024 Tobacco Screening 11/04/2025 11/04/2024 DTaP/Tdap/Td Vaccines (4 - Td or Tdap) 11/18/2031 11/18/2021, 11/18/2021, 07/23/2011, Additional history exists RSV Patients and Patients Aged 60 years or older (1 - 1-dose 75+ series) 2042 Hepatitis B Vaccines Completed 12/01/2005, 10/31/2005, 11/02/2000, Additional history exists Hepatitis A Vaccines Completed 08/28/2006, 01/23/20 06 Zoster Vaccines Completed 07/09/2020, 11/14/2019 HIV Screening Completed 08/21/2020 Influenza Vaccine Completed 10/21/2024, , 09/29/2022, Additional history exists HIB Vaccines Aged Out No longer eligi [...] Name Priority Date/Time Associated Diagnosis Comments XR CHEST 1 VIEW Routine 10/20/2024 4:49 PM EST DRUG MONITOR, PANEL 1, SCREEN, URINE Routine 10/20/2024 4:11 PM EST URINALYSIS, COMPLETE, WITH REFLEX TO CULTURE Routine 10/20/2024 4:11 PM EST VENOUS BLOOD GAS Routine 10/20/2024 3:55 PM EST ACETAMINOPHEN LEVEL Routine 10/20/2024 3 :51 PM EST SALICYLATE Routine 10/20/2024 3:51 PM EST HIGH SENSITIVITY TROPONIN I Routine 10/20/2024 12:07 [...] CONTRAST Routine 10/20/2024 1 1:08 AM EST HM COLONOSCOPY Routine 06/09/2024 11:24 AM EDT BI MAMMOGRAM SCREENING TOMOSYNTHESIS BILATERAL Routine 07/14/2023 3:15 PM EDT HIV 1/2 ANTIGEN/ANTIBODY, FOURTH GENERATION W/RFL Routine 08/21/2020 11:31 AM EST LIPID PANEL, STANDARD Routine 08/21/2020 11:31 AM EST ZZZ HISTORICAL HPV MRNA E6/E7 Routine 07/02/2017 10:45 AM EDT from Last 3 Months or Most Recently Relevant to Health Maintenance Results * XR Chest 1 View (10/20/2024 4:49 PM EST) Anatomical Region Laterality Modality Chest Radiographic Shyla ging 10/20/2024 4:49 PM EST Narrative 10/20/2024 4:51 PM EST ? [facility] ?[address] ?[place] [address] ?XRay Report ? Signed ? Patient: Andrew,Danika ?MR#: [id number] ?? 2 ? : 1965 ?Acct:[id number] ? Age/Sex: 59 / F ?ADM Date: 10/20/24 ? Loc: HO.ED ? Attending Dr: ? Ordering Physician: Ghassan Hernandez MD ?? Date of Service: 10/20/24 ?? Procedure(s): XR chest 1V ?? Accession Number(s): [id number] ? cc: Ghassan Hernandez MD; Kadi Tomlin ? CLINICAL HISTORY: cough ? 1 view chest x-ray ? Comparison: None ? Findings: ?? No consolidation or effusion. ?? Heart size is normal. ?? No acute fracture. ? IMPRESSION: ?? 1. No acute findings. ? This document has been electronically signed by: Olayinka Rudolph MD on ?? 10/20/2024 16:49:52 ? Dictated By: ?Olayinka Rudolph MD ? Signed By: ?<Electronically signed by Olayinka Rudolph MD in OV> ? 10/20/24 1651 ? DD/ 1649 ? TD/TT: 10/20/24 1649 ? Fish Culturist: ? Procedure Note Donotuseinterpreter, Image - 10/20/[address] [address] XRay Report Signed Patient: Koby Morales#: [id number] 2 : 1965Acct:[id number] Age/Sex: 59 / FADM Date: 10/20/24 Loc: HO.ED Attending Dr: Ordering Physician: Ghassan Hernandez MD Date of Service: 10/20/24 Procedure(s): XR chest 1V Accession Number(s): [id number] cc: Ghassan Hernandez MD; Kadi Tomlin CLINICAL HISTORY: cough 1 view chest x-ray Comparison: None Findings: No consolidation or effusion. Heart size is normal. No acute fracture. IMPRESSION: 1. No acute findings. This document has been electronically signed by: Olayinka Rudolph MD on 10/20/2024 16:49:52 Dictated By: Olayinka Rudolph MD Signed By: <Electronically signed by Olayinka Rudolph MD in OV> 10/20/241650 DD/ 48 TD/TT: 10/20/241648 Fish Culturist: [facility] External Provider IMG XR PROCEDURES Final Result * Urinalysis, Complete, with Reflex to Culture (10/20/2024 4:11 PM EST) Color Urine Yellow [facility] Appearance Urine Clear [facility] PH 6.0 5.0 - 9.0 [facility] Glucose Urine UA Negative Negative mg/dL [facility] Urine Blood Negative Negative [facility] Specific [place] - Urine 1.015 1.005 - 1.025 [facility] Urine Protein Negative Neg-Trace mg/dL [facility] Urine Ketones Negative Negative mg/dL [facility] Nitrite Urine Negative Negative [facility] Leukocyte Esterase Urine Negative Negative [facility] RBC Urine 0-2 0 - 2 /HPF [facility] Urine WBC 0-5 0 - 5 /HPF [facility] Urine Squamous Epithelial Cell 0-2 0 - 2 /HPF [facility] Urine Bacteria None Seen None Seen [facility] Hyaline Casts, Urine 0-2 0 - 2 /LPF [facility] 10/20/2024 4:11 PM EST 10/20/2024 4:13 PM EST Narrative [facility] - 10/20/2024 4:28 PM EST [id number], [employer] us Generic External Data Provider LAB URINE ORDERAB LES Final Result [facility] [address] [place] [address] [phone] * (ABNORMAL) Drug Monitoring, Panel 1, Screen, Urine (10/20/2024 4:11 PM EST) Opiate Screen Urine Not Detected Not Detect [facility] Comment:Opiate cut-off is 30 0 ng/mL.Positive results are unconfirmed and should not be used fornon-medical purposes. Barbiturates, Urine Not Detected Not Detect [facility] Comment:Barbiturate cut-off is 200 ng/mL.Positive results are unconfirmed and should not be used fornon-medical purposes. Phencyclidine Screen Urine Not Detected Not Detect [facility] Comment:Phencyclidine cut-of f is 25 ng/mL.Positive results are unconfirmed and should not be used fornon-medical purposes. Amphetamine Screen Urine Not Detected Not Detect [facility] Comment:Amphetamine cut-off is 1000 ng/mL.Positive results are unconfirmed and should not be used fornon-medical purposes. Benzodiazepines Screen Urine POSITIVE(A) Not Detect [facility] Comment:Benzodiazepine cut-o ff is 200 ng/mL.Positive results are unconfirmed and should not be used fornon-medical purposes. Cocaine Screen Urine POSITIVE(A) Not Detect [facility] Comment:Cocaine cut-off is 3 00 ng/mL.Positive results are unconfirmed and should not be used fornon-medical purposes. Cannabinoid Screen Urine Not Detected Not Detect [facility] Comment:Cannabinoid cut-off is 50 ng/mL.Positive results are unconfirmed and should not be used fornon-medical purposes. Methadone Screen, Urine Not Detected Not Detect ng/mL [facility] Comment:Methadone cut-off is 300 ng/mL.Positive results are unconfirmed and should not be used fornon-medical purposes. FENTANYL URINE Not Detected Not Detect [facility] Comment:Fentanyl cut-off is 1 ng/mL.Positive results are unconfirmed and should not be used fornon-medical purposes. Oxycodone Urine Screen Not Detected Not Detect ng/mL [facility] Comment:Oxycodone cut-off is 100 ng/mL.Positive results are unconfirmed and should not be used fornon-medical purposes. Buprenorphine Screen Not Detected Not Detect ng/mL [facility] Comment:Buprenorphine cut-of f is 5 ng/mL.Positive results are unconfirmed and should not be used fornon-medical purposes. 10/20/2024 4:11 PM EST 10/20/2024 4:13 PM EST us Generic External Data Provider LAB URINE ORDERAB LES Final Result Performing Organization Address City/State/[facility] Co de Phone Number [facility] [address] [place] [phone] * VENOUS BLOOD GAS (10/20/2024 3:55 PM EST) VBG pH 7.42 7.32 - 7.43 [facility] Comment:METER #: [id number] VBG PCO2 40 mmHg [facility] Comment:METER #: [id number] VBG PO2 61 mmHg [facility] Comment:METER #: [id number] VBG Base Excess 1.8 mmol/L [facility] Comment:METER #: [id number] VBG HCO3 26 22 - 26 mmol/L [facility] Comment:METER #: [id number] O2 Sat, Nacho 90.0 % [facility] Comment:METER #: [id number] 10/20/2024 3:55 PM EST 10/20/2024 4:01 PM EST us Generic External Data Provider LAB BLOOD ORDERAB LES Final Result Performing Organization Address [facility]/ZIP Co de Phone Number [facility] [address] [place] [phone] * Acetaminophen level (10/20/2024 3:51 PM EST) [facility] Acetaminophen LAB <3 <30 mcg/mL [facility] 10/20/2024 3:51 PM EST 10/20/2024 3:54 PM EST us Generic External Data Provider LAB BLOOD ORDERAB LES Final Result Performing Organization Address [facility] Co de Phone Number [facility] [address] [place] [phone] * (ABNORMAL) Salicylate (10/20/2024 3:51 PM EST) [facility] Salicylate <5.0(L) 15 - 30 mg/dL [facility] 10/20/2024 3:51 PM EST 10/20/2024 3:54 PM EST us Generic External Data Provider LAB BLOOD ORDERAB LES Final Result Performing Organization Address [facility] de Phone Number [facility] [address] [place] [phone] * High Sensitivity Troponin I (10/20/2024 12:07 PM EST) TROPONIN I HIGH SENSITIVITY <2.7 <3.5 - 17.0 ng/L [facility] Comment:The [place] high sens itivity Troponin-I results should beused in conjunction with other diagnostic information suchas ECG, clinical observations and information, and patientsymptoms to aid in the diagnosis of [place]. 10/20/2024 12:0 7 PM EST 10/20/2024 12:13 PM EST Generic External Data Provider LAB BLOOD ORDERAB LES Final Result Performing Organization Address [facility]/ZIP Co de Phone Number [facility] [address] [place] [phone] * Ethanol (10/20/2024 12:07 PM EST) ETHANOL (MG/DL) IN SER/PLAS <10 mg/dL [facility] Comment:Serum/plasma ethanol results are to be used formedical/treatment purposes only. 10/20/2024 12:0 7 PM EST 10/20/2024 12:13 PM EST Generic External Data Provider LAB BLOOD ORDERAB LES Final Result Performing Organization Address [facility] de Phone Number [facility] [address] [place] [phone] * SARS-CoV-2 RNA, Influenza A/B, and RSV RNA, Ql NAAT (10/20/2024 12:07 PM EST) Influenza A PCR NEGATIVE Negative [facility] Influenza B PCR NEGATIVE Negative [facility] Resp Syncy Virus RNA Qual PCR NEGATIVE Negative [facility] SARS COV2 PCR NEGATIVE Negative [facility] Comment:All test results mus t [...] use by authorized laboratories.Testing performed on the [employer] GeneXpert utilizingreal-time RT-PCR.All SARS CoV2 and positive influenza A/B results arereported to [place] POLLARD. 10/20/2024 12:0 7 PM EST 10/20/2024 12:13 PM EST us Generic External Data Provider LAB MICROBIOLOGY - GENERAL ORDERABLES Final Result [facility] [address] [place] [address] [phone] * (ABNORMAL) CBC auto differential (10/20/2024 12:07 PM EST) White Blood Count 13.3(H) 4.8 - 10.8 X10*3/uL [facility] Red Blood Count 3.78(L) 4.20 - 5.50 X10*6/uL [facility] Hemoglobin 9.8(L) 12.0 - 16.0 g/dl [facility] Hematocrit 31.6(L) 37.0 - 47.0 % [facility] Mean Corpuscular Volume 83.6 80.0 - 98.0 fL [facility] Mean Corpuscular Hemoglobin 25.9(L) 27.0 - 33.0 pg [facility] Mean Corpuscular HGB Conc 31.0 31.0 - 35.0 g/dl [facility] Red Cell Distribution Width 15.7 11.0 - 16.0 % [facility] Platelet Count 268 160 - 400 X10*3/uL [facility] Mean Platelet Volume 10.0 9.4 - 12.3 fL [facility] Neutrophils Percent Auto 81.9(H) 45 - 73 % [facility] Imm Gran Pct Auto 0.5(H) 0.0 - 0.4 % [facility] Lymphocytes Percent Auto 11.2(L) 20 - 40 % [facility] Monocytes Percent Auto 4.2 2 - 11 % [facility] Eosinophils Percent Auto 1.9 0 - 4 % [facility] Basophils Percent Auto 0.3 0 - 2 % [facility] NRBC Pct Auto 0.0 0.0 - 0.2 /100WBC [facility] Neutrophils Absolute Auto 10.9(H) 2.0 - 8.3 x10*3/uL [facility] Imm Gran Abs Auto 0.06(H) 0.00 - 0.03 X10*3/uL [facility] Lymphocytes Absolute Auto 1.5 1.2 - 4.9 X10*3/uL [facility] Monocytes Absolute Auto 0.6 0.1 - 1.2 X10*3/uL [facility] Eosinophils Absolute Auto 0.3 0.0 - 0.4 X10*3/uL [facility] Basophils Absolute Auto 0.0 0.0 - 0.2 X10*3/uL [facility] NRBC Abs Auto 0.000 0.0 - 0.012 X10*3/uL [facility] 10/20/2024 12:0 7 PM EST 10/20/2024 12:13 PM EST us Generic External Data Provider LAB BLOOD ORDERAB LES Final Result Performing Organization Address City/State/[facility] Co de Phone Number [facility] [address] [place] [phone] * Prothrombin Time-INR (10/20/2024 12:07 PM EST) Prothrombin Time 11.4 10.9 - 12.4 SEC [facility] INTERNATIONAL NORM RATIO 1.0 0.9 - 1.1 [facility] Comment:INTERNATIONAL NORMAL IZED RATIO (INR) [...] ORDERAB LES Final Result Performing Organization Address [facility] Co de Phone Number [facility] [address] [place] [phone] * Lipase (10/20/2024 12:07 PM EST) Lipase 13 8 - 78 U/L [facility] 10/20/2024 12:0 7 PM EST 10/20/2024 12:13 PM EST us Generic External Data Provider LAB BLOOD ORDERAB LES Final Result Performing Organization Address [facility] Co de Phone Number [facility] [address] [place] [phone] * Creatine Kinase, Total (10/20/2024 12:07 PM EST) Creatine Kinase Total 105 26 - 140 U/L [facility] 10/20/2024 12:0 7 PM EST 10/20/2024 12:13 PM EST us Generic External Data Provider LAB BLOOD ORDERAB LES Final Result Performing Organization Address [facility] Co de Phone Number [facility] [address] [place] [phone] * Ammonia, Plasma (10/20/2024 12:07 PM EST) Ammonia (P) 29 13 - 55 umol/L [facility] 10/20/2024 12:0 7 PM EST 10/20/2024 12:13 PM EST us Generic External Data Provider LAB BLOOD ORDERAB LES Final Result Performing Organization Address [facility] Co de Phone Number [facility] [address] [place] [phone] * (ABNORMAL) Comprehensive Metabolic Panel (10/20/2024 12:07 PM EST) Sodium 142 135 - 145 mmol/L [facility] Potassium 4.0 3.3 - 5.1 mmol/L [facility] Chloride 109(H) 96 - 108 mmol/L [facility] Carbon Dioxide 26 22 - 29 mmol/L [facility] Anion Gap 11(L) 12 - 20 [facility] Urea Nitrogen (BUN) 13 9 - 16 mg/dL [facility] Creatinine, Serum 0.70 0.5 - 1.4 mg/dL [facility] Creatinine Clr Calc Pharmacy 84.6 [facility] Comment:Provided height and weight: 160.02 cm,72.575 kg.eGFR (calculated from the MDRD study equation) and eCrCl(calculated from the Cockcroft-Gault equation) are based ondifferent parameters and may not yield comparable results.If eCrCl result is absurd, please check patient'sheight/weight. Estimated Glomerular Filt Rate >60 [facility] Comment:Chronic Kidney Disea se: Estimated GFR < 60 mL/min/[id number] Kidney Disease: Estimated GFR < 15 mL/min/1.73m2 Glucose 98 60 - 115 mg/dL [facility] Calcium 9.6 8.4 - 10.2 mg/dL [facility] Bilirubin, Total 0.2 0.0 - 1.0 mg/dL [facility] Aspartate Amino Transferase 27 5 - 31 U/L [facility] Alanine Aminotransferase 23 0 - 31 U/L [facility] Total Protein 7.5 6.5 - 8.0 g/dL [facility] Albumin Level 3.8 3.5 - 5.0 g/dL [facility] Alkaline Phosphatase 115 39 - 117 U/L [facility] 10/20/2024 12:0 7 PM EST 10/20/2024 12:13 PM EST us Generic External Data Provider LAB BLOOD ORDERAB LES Final Result [facility] [address] [place] [phone] * CT Head w/o Contrast (10/20/2024 11:08 AM EST) Anatomical Region Laterality Modality Head, Neck Computed Tomogra phy 10/20/2024 11:0 8 AM EST Narrative 10/20/2024 12:07 PM EST ? [facility] ?[address] ?[place] [address] ? CT Scan Report ? Signed ? Patient: Danika Morales ?MR#: [id number] ?? 2 ? : 1965 ?Acct:[id number] ? Age/Sex: 59 / F ?ADM Date: 10/20/24 ? Loc: HO.ED ? Attending Dr: ? Ordering Physician: Barrett Chavira ?? Date of Service: 10/20/24 ?? Procedure(s): CT head/brain wo IV con ?? Accession Number(s): [id number] ? cc: Kadi Tomlin; Barrett Chavira ? Report Number: ?? [id number]: Total DLP = ??667.00 mGy-cm ?? EXAMINATION: [...] ??Jimmy Singh MD ??10/20/2024 12:04 PM ?? [facility] ? Dictated By: ?Jimmy Koroma MD ? Signed By: ?<Electronically signed by Jimmy Gooden MD in OV> ? 10/20/24 1204 ? DD/ 1108 ? TD/TT: 10/20/24 1144 ? Fish Culturist: ? Procedure Note Maru Chahal - 10/20/[address] [place] [address] [address] Scan Report Signed Patient: Koby Morales#: [id number] 2 : 1965Acct:[id number] Age/Sex: 59 / FADM Date: 10/20/24 Loc: HO.ED Attending Dr: Ordering Physician: Barrett Chavira Date of Service: 10/20/24 Procedure(s): CT head/brain wo IV con Accession Number(s): [id number] cc: Kadi Tomlin; Barrett Chavira Report Number: [id number]: Total DLP = 667.00 mGy-cm EXAMINATION: CT [...] by: Jimmy Singh MD 10/20/2024 12:04 PM [facility] Dictated By: Jimmy Koroma MD Signed By: <Electronically signed by Jimmy Gooden MDin OV> 10/20/24 1204 DD/ 1108 TD/TT: 10/20/24 1144 Fish Culturist: [facility] External Provider IMG CT PROCEDURES Final Result * Hm Colonoscopy (06/09/2024 11:24 AM EDT) Historical Provider HEALTH MAINTENANCE Final Result * BI Mammogram Screening Tomosynthesis Bilateral (07/14/2023 3:15 PM EDT) Anatomical Region Laterality Modality Breast Bilateral Mammography 07/14/2023 3:15 PM EDT Narrative 08/01/2023 1:28 PM EST ? [place] [facility] ? [address] ?[place] [address] ? Mammography Report ? Signed ? Patient: Andrew,Danika ?MR#: [id number] ?? 2 ? : 1965 ?Acct:[id number] ? Age/Sex: 57 / F ?ADM Date: 07/14/23 ? Loc: HO.MAMMO ? Attending Dr: Kadi Tomlin MD ? Ordering Physician: Kadi Tomlin ?Results: 1Negative ? Date of Service: 07/14/23 ?Follow Up: 1 Year From Orig ?? inal Mammogram ? Procedure(s): MM tomosynthesis screening BI ?? Accession Number(s): [id number] ? cc: Kadi Tomlin ? EXAMINATION: ?? MM SCREENING DIGITAL BREAST TOMOSYNTHESIS, BILATERAL ? CLINICAL INFORMATION: ? Screening. Asymptomatic. ? COMPARISON: ?? Mammography: This study is compared with prior exams dating back to ?? 2017. ? TECHNIQUE: ?? Digital breast tomosynthesis is [...] by Petrona Majano MD in OV> ? 08/01/23 1324 ? DD/ 1515 ? TD/TT: ? Fish Culturist: ? Procedure Note Donfaustinater, Image - 08/01/2023 [facility] [address] [place] [address] Mammography Report Signed Patient: Koby Morales#: [id number] 2 : 1965Acct:[id number] Age/Sex: 57 / FADM Date: 07/14/23 Loc: [facility] Attending Dr: Kadi Tomlin MD Ordering Physician: Khadar Tomlinults: 1Negative Date of Service: 07/14/23Follow Up: 1 Year From Orig inal Mammogram Procedure(s): MM tomosynthesis screening BI Accession Number(s): [id number] cc: Kadi Tomlin EXAMINATION: MM SCREENING DIGITAL [...] in OV> 08/01/23 1324 DD/ 1515 TD/TT: Fish Culturist: us Kadi Tomlin MD IMG BI PROCEDURES Edited Resul t - Final * HIV 1/2 ANTIGEN/ANTIBODY,FOURTH GENERATION W/RFL (08/21/2020 11:31 AM EST) HIV-1/2 ANTIGEN AND ANTIBODIES, 4TH GENERATION W/ REFLEX NON-REACT DINORA NON-REACT DINORA [facility] Comment: HIV-1 antigen and HIV-1/HIV-2 [...] ? For additional information please refer to http://education.DocuSign.GenieDB/faq/GZU627 (This link is being provided for informational/ educational purposes only.) ? The performance of this assay has not been clinically validated in patients less than 2 years old. ?? HIV-1/2 ANTIGEN AND ANTIBODIES, 4TH GENERATION W/ REFLEX NON-REACT DINORA NON-REACT DINORA [facility] Comment: HIV-1 antigen and HIV-1/HIV-2 [...] ? For additional information please refer to http://Pal[employer]ade [employer].TV Pixie/faq/OJN472 (This link is being provided for informational/ educational purposes only.) ? The performance of this assay has not been clinically validated in patients less than 2 years old. ?? 08/21/2020 11:3 1 AM EST us Shantelle Adame MD LAB BLOOD ORDERABLES Final Re sult [facility] [address] * (ABNORMAL) LIPID PANEL, STANDARD (08/21/2020 11:31 AM EST) Chol/HDLC Ratio 3.8 <5.0 (calc) [facility] [...] ?? Alistair DELAROSA et al. CANDI. 2013;310(19): 6704-3393 ?? (http://[employer].XING.GenieDB/faq/MIN227) Non-HDL Cholesterol 168(H) <130 mg/dL (calc) [facility] [...] ?? Alistair SS et al. CANDI. 2013;310(19): 9007-8848 ?? (http://[employer].Dividend Solar/faq/EAF507) Non-HDL Cholesterol 168(H) <130 mg/dL (calc) [facility] [...] ?? Alistair SS et al. CANDI. 2013;310(19): 0383-4674 ?? (http://[employer].XING.GenieDB/faq/SDA663) Non-HDL Cholesterol 168(H) <130 mg/dL (calc) [facility] Comment: For patients with diabetes plus 1 major ASCVD risk ?? factor, treating to a non-HDL-C goal of <100 mg/dL ?? (LDL-C of <70 mg/dL) is considered a therapeutic ?? option. Triglycerides 156(H) <150 mg/dL [facility] 08/21/2020 11:3 1 AM EST us Shantelle Adame MD LAB BLOOD ORDERABLES Final Re sult Performing Organization Address [facility] de Phone Number [facility] [address] * HPV mRNA E6/E7 (07/02/2017 10:45 AM EDT) HPV mRNA E6/E7 Not Detected NOT DETECTED [facility] Comment: This test was performed using the APTIMA(R) HPV Assay ([employer] This assay detects E6/E7 viral messenger RNA (mRNA) from 14 high-risk HPV types (16,18,31,33,35,39,45,51, 52,56,58,59,66,68). For additional information please refer to: http://education.TV Pixie/faq/RCX706p6 (This link is being provided for informational/ educational purposes only.) Test Performed by [employer], [facility], [address] [place] [id number] Ector Landeors M.D., Ph.D., Director of Laboratories , [facility] [id number] Please note: ??Effective 06/02/2016, HPV testing will be performed using [employer]'s APTIMA test which targets mRNA. Detecting mRNA instead of DNA, as in older methods, offers significant improvements in specificity. 07/02/2017 10:4 5 AM EDT us Enoc Boles MAJOR APPLIANCE ASSEMBLY SUPERVISOR HISTORICAL/NON ORDERABLE LABS Final Result Performing Organization Address [facility] Co de Phone Number [facility] [address] from Last 3 Months or Most Recently Relevant to Health Maintenance Insurance [facility] C3 Care Teams Assisted Living Manager Relationship Specialty Start Date End Date Kadi Tomlin MD [address] [place] [address] [place] [id number] PCP - General Family Medicine 05/21/21
--- OUTSIDE RECORDS SUMMARY | 2024-11-04 18:05 | XMS_ITS | Encounter Summary ---
Author Organization [employer] Address [address] [facility] [address] [place] [address] Care Team Providers Care Paint Technician Name Role Phone Kadi Tomlin MD Primary Care Provider [phone] Reason for Visit * Reason Comments Transition Of Care (Tcm) HDF- scheduled and SDOH screening will need to be complete it in office Encounter Details Date Type Department Care Team ([facility] st Contact Info) Description 10/24/2024 Telephone [facility] [address] [place], [place] [phone] Kadi Tomlin MD [address] [place], [place] [phone] Transition Of Care (Tcm) (HDF- scheduled and SDOH screening will need to be complete it in office) Social History Tobacco Use Types Packs/Day Years [...] as of this encounter Miscellaneous Notes * Significant Event - Nilda Cardoso - 10/24/2024 12:12 PM EST 10/24/24 1212 Hospital Discharges and Admission for [facility] Type of Visit Hospital Admission Date of Admission/Visit 10/21/23 Date of Discharge 10/25/24 Facility [facility] Diagnosis major depressive disorder, Cocaine use and Benzo Follow-Up Actions Follow-Up Needed Provider appointment Follow-Up Outcome Spoke to Caregiver;Booked Appointment Initial Contact Date 10/24/24 Received incoming call from the [facility]. CM Spoke with Mare from [facility]. Patient has been scheduled for an HDF appointment on 11/03/2024 at 10:45AM with Dr. Ellington. LEE requested discharge summaries to be faxed to the Care Management Department at [phone]. CC will follow up on discharge summary following patient's discharge. Insurance verified prior to scheduling. documented in this encounter Plan of Treatment Not on file documented as of this encounter Visit Diagnoses Not on filedocumented in this encounter Additional Health Concerns Assessment Noted Time PHQ-9 Depression Total Score: 15 024 9:17 AM EDT documented as of this encounter Care Teams Paint Technician Relationship Specialty Start Date End Date Kadi Tomlin MD [address] [place] [address] PCP - General Family Medicine 05/21/21 documented as of this encounter
--- OUTSIDE RECORDS SUMMARY | 2024-11-04 18:06 | XMS_ITS | Encounter Summary ---
Author Organization [employer] Address [address] [facility] [address] [place] [address] Care Team Providers Care House Painter Helper Name Role Phone Kadi Tomlin MD Primary Care Provider [phone] Encounter Details Date Type Department Care Team (Late st Contact Info) Description 05/28/2023 Orders Only [facility] [address] [place], [place] [phone] Provider, MD Tracey Social History Tobacco Use Types Packs/Day Years [...] documented as of this encounter Care Teams House Painter Helper Relationship Specialty Start Date End Date Kadi Tomlin MD [address] [place] [address] PCP - General Family Medicine 05/21/21 documented as of this encounter
--- OUTSIDE RECORDS SUMMARY | 2024-11-04 18:06 | XMS_ITS | Encounter Summary ---
Author Organization [employer] Address [address] [facility] [address] [place] [address] Care Team Providers Care Deputy Sheriff Generalist Name Role Phone Kadi Tomlin MD Primary Care Provider [phone] Encounter Details Date Type Department Care Team (Late st Contact Info) Description 06/19/2023 Orders Only [facility] [address] [place], [place] [phone] Kadi Tomlin MD [address] [place], [place] [phone] Social History Tobacco Use Types Packs/Day Years [...] documented as of this encounter Care Teams Deputy Sheriff Generalist Relationship Specialty Start Date End Date Kadi Tomlin MD [address] [place], [place] [phone] PCP - General Family Medicine 05/21/21 documented as of this encounter
--- OUTSIDE RECORDS SUMMARY | 2024-11-04 18:06 | XMS_ITS | Clinical Summary ---
Author Organization [facility] ity Address [address] [place] [address] Care Team Providers Care Drafter Assistant Name Role Phone Unavailable Primary Care Provider Unavailabl e Social History Tobacco Use Types Packs/Day Years Used Date Smoking Tobacco: Never Assessed Comments Unknown Sex and Gender Information Value Date Recorded Sex Assigned at Not on file Legal Sex Female 8:26 PM EST Gender Identity Not on file Sexual Orientation Not on file Plan of Treatment Health Maintenance Due Date Last Done Comments Breast Cancer Screening 1965 DTaP,Tdap,and Td Vaccines (1 - Tdap) 1986 Hepatitis B Vaccines (1 of 3 - 19+ 3-dose series) 1986 Cervical Cancer Screening: P ap Smear 1988 Pneumococcal Vaccine: 50+ Ye ars (1 of 1 - PCV) 2017 Zoster Vaccines (1 of 2) 2017 Colorectal Cancer Screening: Colonoscopy 10/16/2023 Depression Screening 10/16/2023 HIV Screening 10/16/2023 Hepatitis C Screening 10/16/2023 Social Influencers of Health Screening 10/16/2023 COVID-19 Vaccine (1 - 2023-2 5 season) 2024 Influenza Vaccine (#1) 2024 [...] patient's age to complete this topic Meningococcal B Vacine Aged Out No lo nger eligible based on patient's age to complete [...]
--- OUTSIDE RECORDS SUMMARY | 2024-11-04 18:06 | XMS_ITS | Encounter Summary ---
Author Organization [employer] Address [address] [facility] 7t [place] [address] Care Team Providers Care Maintenance Team Member Name Role Phone Kadi Tomlin MD Primary Care Provider [phone] Encounter Details Date Type Department Care Team (Late st Contact Info) Description 10/20/2024 Orders Only [facility] External Provider, [facility] Social History Tobacco Use Types Packs/Day [...] 1 VIEW Routine 10/20/2024 4:49 PM EST URINALYSIS, COMPLETE, WITH REFLEX TO CULTURE Routine 10/20/2024 4:11 PM EST DRUG MONITOR, PANEL 1, SCREEN, URINE Routine 10/20/2024 4:11 PM EST VENOUS BLOOD [...] EST documented in this encounter Results * XR Chest 1 View (10/20/2024 4:49 PM EST) Anatomical Region Laterality Modality Chest Radiographic Shyla ging 10/20/2024 4:49 PM EST Narrative 10/20/2024 4:51 PM EST ? [facility] ?[address] ?[place] [address] ?XRay Report ? Signed ? Patient: Andrew,Danika ?MR#: [id number] ?? 2 ? : 1965 ?Acct:[id number] ? Age/Sex: 59 / F ?ADM Date: 10/20/24 ? Loc: HO.ED ? Attending Dr: ? Ordering Physician: Ghassan Hernandez MD ?? Date of Service: 10/20/24 ?? Procedure(s): XR chest 1V ?? Accession Number(s): [id number] ? cc: Ghassan Hernandez MD; Kadi Tomlin [...] DD/ 1649 ? TD/TT: 10/20/24 1649 ? Production Cell Leader: ? Procedure Note Maru Chahal - 10/20/[address] [address] XRay Report Signed Patient: Aliyah MoralesBaylee#: [id number] 2 : 1965Acct:[id number] Age/Sex: 59 / FADM Date: 10/20/24 Loc: HO.ED Attending Dr: Ordering Physician: Ghassan Hernandez MD Date of Service: 10/20/24 Procedure(s): XR chest 1V Accession Number(s): [id number] cc: Ghassan Hernandez MD; Kadi Tomlin CLINICAL [...] in OV> 10/20/241650 DD/ 48 TD/TT: 10/20/241648 Production Cell Leader: [facility] External Provider IMG XR PROCEDURES Final Result * (ABNORMAL) Drug Monitoring, Panel 1, Screen, Urine (10/20/2024 4:11 PM EST) Opiate Screen Urine Not Detected Not Detect [facility] Comment:Opiate cut-off is 30 0 ng/mL.Positive results are unconfirmed and should not be used fornon-medical purposes. Barbiturates, Urine Not Detected Not Detect [facility] Comment:Barbiturate cut-off is 200 ng/mL.Positive results are unconfirmed and should not be used fornon-medical purposes. Phencyclidine Screen Urine Not Detected Not Detect [facility] Comment:Phencyclidine cut-of f is 25 ng/mL.Positive results are unconfirmed and should not be used fornon-medical purposes. Amphetamine Screen Urine Not Detected Not Detect [facility] Comment:Amphetamine cut-off is 1000 ng/mL.Positive results are unconfirmed and should not be used fornon-medical purposes. Benzodiazepines Screen Urine POSITIVE(A) Not Detect [facility] Comment:Benzodiazepine cut-o ff is 200 ng/mL.Positive results are unconfirmed and should not be used fornon-medical purposes. Cocaine Screen Urine POSITIVE(A) Not Detect [facility] Comment:Cocaine cut-off is 3 00 ng/mL.Positive results are unconfirmed and should not be used fornon-medical purposes. Cannabinoid Screen Urine Not Detected Not Detect [facility] Comment:Cannabinoid cut-off is 50 ng/mL.Positive results are unconfirmed and should not be used fornon-medical purposes. Methadone Screen, Urine Not Detected Not Detect ng/mL [facility] Comment:Methadone cut-off is 300 ng/mL.Positive results are unconfirmed and should not be used fornon-medical purposes. FENTANYL URINE Not Detected Not Detect [facility] Comment:Fentanyl cut-off is 1 ng/mL.Positive results are unconfirmed and should not be used fornon-medical purposes. Oxycodone Urine Screen Not Detected Not Detect ng/mL [facility] Comment:Oxycodone cut-off is 100 ng/mL.Positive results are unconfirmed and should not be used fornon-medical purposes. Buprenorphine Screen Not Detected Not Detect ng/mL [facility] Comment:Buprenorphine cut-of f is 5 ng/mL.Positive results are unconfirmed and should not be used fornon-medical purposes. 10/20/2024 4:11 PM EST 10/20/2024 4:13 PM EST us Generic External Data Provider LAB URINE ORDERAB LES Final Result [facility] [address] [place] [phone] * Urinalysis, Complete, with Reflex to Culture (10/20/2024 4:11 PM EST) Color Urine Yellow [facility] Appearance Urine Clear [facility] PH 6.0 5.0 - 9.0 [facility] Glucose Urine UA Negative Negative mg/dL [facility] Urine Blood Negative Negative [facility] Specific [place] - Urine 1.015 1.005 - 1.025 [facility] Urine Protein Negative Neg-Trace mg/dL [facility] Urine Ketones Negative Negative mg/dL [facility] Nitrite Urine Negative Negative [facility] Leukocyte Esterase Urine Negative Negative [facility] RBC Urine 0-2 0 - 2 /HPF [facility] Urine WBC 0-5 0 - 5 /HPF [facility] Urine Squamous Epithelial Cell 0-2 0 - 2 /HPF [facility] Urine Bacteria None Seen None Seen [facility] Hyaline Casts, Urine 0-2 0 - 2 /LPF [facility] 10/20/2024 4:11 PM EST 10/20/2024 4:13 PM EST Narrative [facility] - 10/20/2024 4:28 PM EST [id number], Clean Catch us Generic External Data Provider LAB URINE ORDERAB LES Final Result Performing Organization Address [facility] Co de Phone Number [facility] [address] [place] [phone] * VENOUS BLOOD GAS (10/20/2024 3:55 PM EST) VBG pH 7.42 7.32 - 7.43 [facility] Comment:METER #: [id number] VBG PCO2 40 mmHg [facility] Comment:METER #: [id number] VBG PO2 61 mmHg [facility] Comment:METER #: [id number] VBG Base Excess 1.8 mmol/L [facility] Comment:METER #: [id number] VBG HCO3 26 22 - 26 mmol/L [facility] Comment:METER #: [id number] O2 Sat, Nacho 90.0 % [facility] Comment:METER #: [id number] 10/20/2024 3:55 PM EST 10/20/2024 4:01 PM EST us Generic External Data Provider LAB BLOOD ORDERAB LES Final Result Performing Organization Address [facility] Co de Phone Number [facility] [address] [place] [phone] * Acetaminophen level (10/20/2024 3:51 PM EST) Acetaminophen LAB <3 <30 mcg/mL [facility] 10/20/2024 3:51 PM EST 10/20/2024 3:54 PM EST Generic External Data Provider LAB BLOOD ORDERAB LES Final Result Performing Organization Address City/[facility]/ZIP Co de Phone Number [facility] [address] [place] [phone] * (ABNORMAL) Salicylate (10/20/2024 3:51 PM EST) Pathologist [facility] Salicylate <5.0(L) 15 - 30 mg/dL [facility] 10/20/2024 3:51 PM EST 10/20/2024 3:54 PM EST Generic External Data Provider LAB BLOOD ORDERAB LES Final Result Performing Organization Address [facility] Co de Phone Number [facility] [address] [place] [phone] * SARS-CoV-2 RNA, Influenza A/B, and RSV RNA, Ql NAAT (10/20/2024 12:07 PM EST) Pathologist [facility] Influenza A PCR NEGATIVE Negative [facility] Influenza B PCR NEGATIVE Negative [facility] Resp Syncy Virus RNA Qual PCR NEGATIVE Negative [facility] SARS COV2 PCR NEGATIVE Negative [facility] Comment:All test results mus t [...] use by authorized laboratories.Testing performed on the [employer] GeneXpert utilizingreal-time RT-PCR.All SARS CoV2 and positive influenza A/B results arereported to [facility]. 10/20/2024 12:0 7 PM EST 10/20/2024 12:13 PM EST Generic External Data Provider LAB MICROBIOLOGY - GENERAL ORDERABLES Final Result Performing Organization Address [facility] Co de Phone Number [facility] [address] [place] [phone] * High Sensitivity Troponin I (10/20/2024 12:07 PM EST) [facility] TROPONIN I HIGH SENSITIVITY <2.7 <3.5 - 17.0 ng/L [facility] Comment:The [place] high sens itivity Troponin-I results should beused in conjunction with other diagnostic information suchas ECG, clinical observations and information, and patientsymptoms to aid in the diagnosis of NV. 10/20/2024 12:0 7 PM EST 10/20/2024 12:13 PM EST Generic External Data Provider LAB BLOOD ORDERAB LES Final Result Performing Organization Address [facility] Number [facility] [address] [place] [phone] * Ammonia, Plasma (10/20/2024 12:07 PM EST) Pathologist [facility] Ammonia (P) 29 13 - 55 umol/L [facility] 10/20/2024 12:0 7 PM EST 10/20/2024 12:13 PM EST Generic External Data Provider LAB BLOOD ORDERAB LES Final Result Performing Organization Address [facility] Phone Number [facility] [address] [place] [phone] * Lipase (10/20/2024 12:07 PM EST) Lipase 13 8 - 78 U/L [facility] 10/20/2024 12:0 7 PM EST 10/20/2024 12:13 PM EST us Generic External Data Provider LAB BLOOD ORDERAB LES Final Result Performing Organization Address [facility]/ZIP Co de Phone Number [facility] [address] [place] [phone] * Creatine Kinase, Total (10/20/2024 12:07 PM EST) [facility] Creatine Kinase Total 105 26 - 140 U/L [facility] 10/20/2024 12:0 7 PM EST 10/20/2024 12:13 PM EST Generic External Data Provider LAB BLOOD ORDERAB LES Final Result Performing Organization Address [email or web address]] de Phone Number [facility] [address] [place] [phone] * (ABNORMAL) Comprehensive Metabolic Panel (10/20/2024 12:07 PM EST) [facility] Sodium 142 135 - 145 mmol/L [facility] Potassium 4.0 3.3 - 5.1 mmol/L [facility] Chloride 109(H) 96 - 108 mmol/L [facility] Carbon Dioxide 26 22 - 29 mmol/L [facility] Anion Gap 11(L) 12 - 20 [facility] Urea Nitrogen (BUN) 13 9 - 16 mg/dL [facility] Creatinine, Serum 0.70 0.5 - 1.4 mg/dL [facility] Creatinine Clr Calc Pharmacy 84.6 [facility] Comment:Provided height and weight: 160.02 cm,72.575 kg.eGFR (calculated from the MDRD study equation) and eCrCl(calculated from the Cockcroft-Gault equation) are based ondifferent parameters and may not yield comparable results.If eCrCl result is absurd, please check patient'sheight/weight. Estimated Glomerular Filt Rate >60 [facility] Comment:Chronic Kidney Disea se: Estimated GFR < 60 mL/min/1.24o2Vboeng Kidney Disease: Estimated GFR < 15 mL/min/1.73m2 Glucose 98 60 - 115 mg/dL [facility] Calcium 9.6 8.4 - 10.2 mg/dL [facility] Bilirubin, Total 0.2 0.0 - 1.0 mg/dL [facility] Aspartate Amino Transferase 27 5 - 31 U/L [facility] Alanine Aminotransferase 23 0 - 31 U/L [facility] Total Protein 7.5 6.5 - 8.0 g/dL [facility] Albumin Level 3.8 3.5 - 5.0 g/dL [facility] Alkaline Phosphatase 115 39 - 117 U/L [facility] 10/20/2024 12:0 7 PM EST 10/20/2024 12:13 PM EST us Generic External Data Provider LAB BLOOD ORDERAB LES Final Result Performing Organization Address [facility] Co de Phone Number [facility] [address] [place] [phone] * Ethanol (10/20/2024 12:07 PM EST) ETHANOL (MG/DL) IN SER/PLAS <10 mg/dL [facility] Comment:Serum/plasma ethanol results are to be used formedical/treatment purposes only. 10/20/2024 12:0 7 PM EST 10/20/2024 12:13 PM EST [employer] External Data Provider LAB BLOOD ORDERAB LES Final Result Performing Organization Address [facility] Co de Phone Number [facility] [address] [place] [phone] * Prothrombin Time-INR (10/20/2024 12:07 PM EST) Prothrombin Time 11.4 10.9 - 12.4 SEC [facility] INTERNATIONAL NORM RATIO 1.0 0.9 - 1.1 [facility] Comment:INTERNATIONAL NORMAL IZED RATIO (INR) REFERENCE [...] Provider LAB BLOOD ORDERAB LES Final Result [facility] [address] [place] [phone] * (ABNORMAL) CBC auto differential (10/20/2024 12:07 PM EST) White Blood Count 13.3(H) 4.8 - 10.8 X10*3/uL [facility] Red Blood Count 3.78(L) 4.20 - 5.50 X10*6/uL [facility] Hemoglobin 9.8(L) 12.0 - 16.0 g/dl [facility] Hematocrit 31.6(L) 37.0 - 47.0 % [facility] Mean Corpuscular Volume 83.6 80.0 - 98.0 fL [facility] Mean Corpuscular Hemoglobin 25.9(L) 27.0 - 33.0 pg [facility] Mean Corpuscular HGB Conc 31.0 31.0 - 35.0 g/dl [facility] Red Cell Distribution Width 15.7 11.0 - 16.0 % [facility] Platelet Count 268 160 - 400 X10*3/uL [facility] Mean Platelet Volume 10.0 9.4 - 12.3 fL [facility] Neutrophils Percent Auto 81.9(H) 45 - 73 % [facility] Imm Gran Pct Auto 0.5(H) 0.0 - 0.4 % [facility] Lymphocytes Percent Auto 11.2(L) 20 - 40 % [facility] Monocytes Percent Auto 4.2 2 - 11 % [facility] Eosinophils Percent Auto 1.9 0 - 4 % [facility] Basophils Percent Auto 0.3 0 - 2 % [facility] NRBC Pct Auto 0.0 0.0 - 0.2 /100WBC [facility] Neutrophils Absolute Auto 10.9(H) 2.0 - 8.3 x10*3/uL [facility] Imm Gran Abs Auto 0.06(H) 0.00 - 0.03 X10*3/uL [facility] Lymphocytes Absolute Auto 1.5 1.2 - 4.9 X10*3/uL [facility] Monocytes Absolute Auto 0.6 0.1 - 1.2 X10*3/uL [facility] Eosinophils Absolute Auto 0.3 0.0 - 0.4 X10*3/uL [facility] Basophils Absolute Auto 0.0 0.0 - 0.2 X10*3/uL [facility] NRBC Abs Auto 0.000 0.0 - 0.012 X10*3/uL [facility] 10/20/2024 12:0 7 PM EST 10/20/2024 12:13 PM EST us Generic External Data Provider LAB BLOOD ORDERAB LES Final Result [facility] [address] [place] [phone] * CT Head w/o Contrast (10/20/2024 11:08 AM EST) Anatomical Region Laterality Modality Head, Neck Computed Tomogra phy 10/20/2024 11:0 8 AM EST Narrative 10/20/2024 12:07 PM EST ? [facility] [facility] ?[address] ?[place] [address] ? CT Scan Report ? Signed ? Patient: Andrew,Danika ?MR#: [id number] ?? 2 ? : 1965 ?Acct:[id number] ? Age/Sex: 59 / F ?ADM Date: 10/20/24 ? Loc: HO.ED ? Attending Dr: ? Ordering Physician: Barrett Chavira ?? Date of Service: 10/20/24 ?? Procedure(s): CT head/brain wo IV con ?? Accession Number(s): [id number] ? cc: Kadi Tomlin; Barrett Chavira ? Report Number: ?? [id number]: Total DLP = ??667.00 mGy-cm ?? EXAMINATION: [...] DD/ 1108 ? TD/TT: 10/20/24 1144 ? Production Cell Leader: ? Procedure Note Donfaustinater, Image - 10/20/[address] [place] [address] [address] Scan Report Signed Patient: Koby Morales#: [id number] 2 : 1965Acct:[id number] Age/Sex: 59 / FADM Date: 10/20/24 Loc: HO.ED Attending Dr: Ordering Physician: Barrett Chavira Date of Service: 10/20/24 Procedure(s): CT head/brain wo IV con Accession Number(s): [id number] cc: Kadi Tomiln; Barrett Chavira Report Number: [id number]: Total DLP = 667.00 mGy-cm EXAMINATION: CT [...] by: Jimmy Singh MD 10/20/2024 12:04 PM [facility] Dictated By: Jimmy Koroma MD Signed By: <Electronically signed by Jimmy Gooden MDin OV> 10/20/24 1204 DD/ 1108 TD/TT: 10/20/24 1144 Production Cell Leader: [facility] External Provider IMG CT PROCEDURES Final Result documented in this encounter Visit Diagnoses Not on filedocumented in this encounter Additional Health Concerns Assessment Noted Time PHQ-9 Depression Total Score: 15 03/28/ 024 9:17 AM EDT documented as of this encounter Care Teams Maintenance Team Member Relationship Specialty Start Date End Date Kadi Tomlin MD [address] [place] [phone] PCP - General Family Medicine 05/21/21 documented as of this encounter
--- OUTSIDE RECORDS SUMMARY | 2024-11-04 18:06 | XMS_ITS | Encounter Summary ---
Author Organization [employer] Address [address] [facility] 7t [place] [address] Care Team Providers Care Android Programmer Name Role Phone Kadi Tomlin MD Primary Care Provider [phone] Reason for Visit * Reason Onset Date Comments Nurse Triage 04/05/2024 Encounter Details Date Type Department Care Team ([facility] st Contact Info) Description 04/05/2024 Telephone [facility] [address] [place], [place] [phone] Kadi Tomlin MD [address] [place], [place] [phone] Nurse Triage Social History Tobacco Use Types [...] 04/05/2024 12:14 PM EDT Triage call with Klip Bladder Blower ID [id number] Pt reports low blood pressure of 106/80 [...] fordays. Pt is advised to come to [facility] today to be seen by provider and [...] accepted this outcome Please contact pt @ Malay Speaker documented in this encounter Plan of Treatment Not on file documented as of this encounter Visit Diagnoses Not on filedocumented in this encounter Additional Health Concerns Assessment Noted Time PHQ-9 Depression Total Score: 15 024 9:17 AM EDT documented as of this encounter Care Teams Android Programmer Relationship Specialty Start Date End Date Kadi Tomlin MD [address] [place] [address] PCP - General Family Medicine 05/21/21 documented as of this encounter
--- OUTSIDE RECORDS SUMMARY | 2024-11-04 18:06 | XMS_ITS | Encounter Summary ---
Author Organization [employer] Address [address] [facility] 7t [place] [address] Care Team Providers Care Abstractor Name Role Phone Kadi Tomlin MD Primary Care Provider [phone] Reason for Visit * Reason Comments Med Refill Encounter Details Date Type Department Care Team ([facility] st Contact Info) Description 10/11/2024 Refill [facility] [address] [place], [place] [phone] Tushar Nickerson MD [address] [place], [place] [phone] Social History Tobacco Use Types Packs/Day Years [...] documented as of this encounter Care Teams Abstractor Relationship Specialty Start Date End Date Kadi Tomlin MD [address] [place] [phone] PCP - General Family Medicine 05/21/21 documented as of this encounter
--- OUTSIDE RECORDS SUMMARY | 2024-11-04 18:06 | XMS_ITS | Encounter Summary ---
Author Organization [employer] Address [address] [facility] [address] [place] [address] Care Team Providers Care Exceptional Children Teacher Assistant Name Role Phone Kadi Tomlin MD Primary Care Provider [phone] Encounter Details Date Type Department Care Team (Late st Contact Info) Description 08/17/2023 Abstract [facility] [address] [place], [place] [phone] Denisse Castillo Social History Tobacco Use Types [...] documented as of this encounter Care Teams Exceptional Children Teacher Assistant Relationship Specialty Start Date End Date Kadi Tomlin MD [address] [place] [address] PCP - General Family Medicine 05/21/21 documented as of this encounter
[2024-11-15 10:07] LABS: HPV Genotype 16 Negative (Negative); HPV Genotype 18 Negative (Negative); HPV High Risk Positive (Negative)
== END 2024-11-04 18:04 | disposition home or self-care (01) ==
LOC: HO.HHCLNP 18:03
PROVIDERS: Visit Provider General Practice
DX: Z12.4 Encounter for screening for malignant neoplasm of cervix (principal)
CPT/HCPCS: 87626; 88175

== ENCOUNTER 2024-12-15 14:56 | Emergency (ER) | payer MEDICAID, SELFPAY ==
[2024-12-15 15:07] VITALS: BP 128/69; PULSE 65; RESP 16; TEMP 36.6; O2SAT 97; BMI 30.9
== END 2024-12-15 21:27 | disposition left against medical advice (07) ==
PROVIDERS: Emergency Provider Emergency Medicine; PCP General Practice
DX: M25.511 Pain in right shoulder (principal); Z53.21 Procedure and treatment not carried out due to patient leaving prior to being seen by health care provider
CPT/HCPCS: 99281

== ENCOUNTER 2025-01-03 11:27 | Outpatient (AMB) | payer MEDICAID, SELFPAY ==
--- NOTE | 2025-01-03 11:34 | MHC.OFFVIS ---
Vital Signs 01/03/25 11:43 Height 5 ft 4 in Weight 180 lb BMI 30.9 Intake Visit Reasons: New Pt - Right Sided Neck & Shoulder Pain Intake Note: Danika is a 58 year old right hand dominant female who presents today for an evaluation of her right sided neck & shoulder pain. Patient was previously seen with ANDERSON Cee who referred patient . Patient reports ongoing constant pain that radiates from the right side of neck down to her elbow. States discomfort has been present for months. Patient mentions her pain is worse with AODL, states difficulty with getting dressed. Limited ROM. Numbness and tingling in her hand. Denies injury. No other tx. Aircraft Charter Dispatcher Required: Yes Aircraft Charter Dispatcher Services: Aircraft Charter Dispatcher Present Aircraft Charter Dispatcher Name: Lona Morgan ID#[id number] Allergies No Known Allergies Allergy (Verified 01/03/25 11:34) Medication List - Last Reconciled 01/03/25 by Leigh Talamantes MD albuterol sulfate 90 mcg/actuation 2 puffs inhalation QID PRN amitriptyline 25 mg PO BEDTIME atorvastatin 40 mg PO DAILY baclofen 10 mg PO TID PRN buspirone 30 mg PO BID 30 days cholecalciferol (vitamin D3) 50 mcg PO DAILY clonidine HCl 0.1 mg See Protocol PO BID escitalopram oxalate 10 mg PO DAILY 30 days hydrochlorothiazide 25 mg PO DAILY inhalational spacing device (Compact Space Chamber) As directed lisinopril 40 mg PO DAILY nifedipine ER 30 mg PO DAILY omeprazole 20 mg PO BID@0630,1630 30 days propranolol 40 mg PO BID quetiapine 50 mg PO BID@0900,1700 30 days quetiapine (Seroquel) 100 mg PO BEDTIME 30 days sumatriptan succinate 100 mg PO DAILY MRX1 PRN zolpidem 5 mg PO BEDTIME PRN HPI Comments Details: Patient previously seen by igor Cee for right shoulder pain. Referred to physiatry for further evaluation of neck pain. Patient reports ongoing constant pain that radiates from the right side of neck down to her elbow. States discomfort has been present for months. Patient mentions her pain is worse with AODL, states difficulty with getting dressed. Reports numbness and tingling in her hand, mostly at night, not connected to the shoulder/neck pain. No cervical imaging yet. No EMG yet. No PT yet, but says pain is too much on right arm that she can't go to PT. [facility] Medical History Osteoarthritis GERD (gastroesophageal reflux disease) Hypothyroid Hx of hepatitis C Migraines Anxiety Depression Asthma Hypertension Surgical History History of esophagogastroduodenoscopy (EGD) History of nasal surgery History of tubal ligation History of colonoscopy Family History Father No problems noted. Mother HTN (hypertension) Social History (Updated 01/03/25 @ 11:36 by ANTONY Mckenzie) Household Members: Family Housing: House Are you a primary home health care worker to a significant other at home: No Do you presently have visiting nurse or other home services: No Alcohol intake: never Patient Tobacco Use Status: Never used Tobacco e-Cigarette/Vaping Use: Never Used Substance Use Type: Crack/Cocaine Advance Directives Date on File: 02/19/22 service: No Current occupational status: employed Current occupation: right hand dominant Sexual orientation: Straight/Heterosexual Review of Systems Const All systems reviewed & are unremarkable except as noted in HPI and below Physical Exam Patient would not range right shoulder fully in flexion or abduction due to pain. Right upper arm appears more swollen than left, particularly deltoid and biceps appear more swollen, with a bruise on deltoid. When performing Scott sign, patient reports pain on shoulder. Patient would not do any other testing for right rotator cuff muscles, due to pain. Results Reviewed Results Reviewed: I independently reviewed the results of the following: Glenohumeral joint preserved Ordering Physician: CARI TOVAR MD Date of Service: 07/18/24 Procedure(s): XR shoulder RT min 2V Accession Number(s): [id number] cc: CARI TOVAR MD; Nini Tomlin EXAMINATION: XR SHOULDER, RIGHT CLINICAL INFORMATION: Atraumatic anterior shoulder pain, patient states pain for 2 weeks, denies injury. COMPARISON: 07/27/2017 TECHNIQUE: Three views of the right shoulder. FINDINGS: Moderate degenerative changes in the acromioclavicular joint. Glenohumeral alignment preserved. Mild degenerative changes in the glenohumeral joint. XR/XR shoulder RT min 2V IMPRESSION: Moderate degenerative changes in the acromioclavicular joint. This study was presented today July 19, 2024 for interpretation. Stat results provided at this time as requested by referring provider. Electronically signed by: Erika Gomez MD 07/19/2024 06:58 AM EDT RP I reviewed records from the following: Ortho Assessment & Plan Assessment & Plan (1) Strain of right deltoid muscle: Code(s): S46.811A - Strain of other muscles, fascia and tendons at shoulder and upper arm level, right arm, initial encounter Category: Medical (2) Strain of right biceps: Code(s): S46.211A - Strain of muscle, fascia and tendon of other parts of biceps, right arm, initial encounter Category: Medical Qualifiers: Encounter type: initial encounter Qualified Code(s): S46.211A - Strain of muscle, fascia and tendon of other parts of biceps, right arm, initial encounter (3) Numbness of right hand: Code(s): R20.0 - Anesthesia of skin Category: Medical Plan Notable swelling and bruising on right deltoid, pain out of proportion to right shoulder x-ray results. Appears to be a focal injury rather than cervical radiculopathy. Could not fully rule out right rotator cuff issue as patient unable to perform exam due to pain. After much discussion, patient is agreeable to starting physical therapy. She can take ibuprofen as needed or prior to physical therapy so she can tolerate. Would do cervical x-ray and humerus x-ray today. Ordered right upper extremity EMG to rule out Carpal Tunnel Syndrome. Also ordering right upper extremity ultrasound. Assessment and plan discussed with patient, and patient was agreeable. All questions were answered thoroughly. I will see her during the EMG, or follow up after PT. Leihg Talamantes MD, LUIZ Board Certified, [place] [employer] and Rehabilitation (ABPMR) Board Certified, [place] Board [employer] Electrodiagnostic Medicine (ABEM) Orders: Orders XR cervical spine 3V Today M54.2 - Cervicalgia, R20.0 - Anesthesia of skin XR humerus RT Today R20.0 - Anesthesia of skin, S46.211A - Strain of muscle, fascia and tendon of other parts of biceps, right arm, initial encounter, S46.811A - Strain of other muscles, fascia and tendons at shoulder and upper arm level, right arm, initial encounter NE electromyogram (EMG) Today R20.0 - Anesthesia of skin NE nerve conduction velocity Today R20.0 - Anesthesia of skin US venous duplex UE RT Today R20.0 - Anesthesia of skin, S46.211A - Strain of muscle, fascia and tendon of other parts of biceps, right arm, initial encounter, S46.811A - Strain of other muscles, fascia and tendons at shoulder and upper arm level, right arm, initial encounter Medications: New ibuprofen 800mg every 8 hours as needed, to take before PT, with full stomach 800 mg PO Q8H 30 tabs 0RF Coding Level of Care Code New Pt Level 4 ([id number]) Diagnoses Strain of right deltoid muscle S46.811A Strain of right biceps, initial encounter S46.211A Encounter type: initial encounter Numbness of right hand R20.0
[2025-01-03 11:43] VITALS: BMI 30.9
--- OUTSIDE RECORDS SUMMARY | 2025-01-03 14:12 | XMS_ITS | Encounter Summary ---
Author Organization [employer] Address [address] [place] [address] Care Team Providers Care Food Safety Officer Name Role Phone Kadi Tomlin MD Primary Care Provider [phone] Encounter Details Date Type Department Care Team (Late st Contact Info) Description 08/17/2023 Abstract [facility] [address] [place], [place] [phone] Denisse Castillo Social History Tobacco Use Types [...] documented as of this encounter Care Teams Food Safety Officer Relationship Specialty Start Date End Date Kadi Tomlin MD [address] [place] [address] PCP - General Family Medicine 05/21/21 documented as of this encounter
--- OUTSIDE RECORDS SUMMARY | 2025-01-03 14:12 | XMS_ITS | Encounter Summary ---
Author Organization [employer] Address [address] [place] [address] Care Team Providers Care Boats Renter Name Role Phone Kadi Tomlin MD Primary Care Provider [phone] Encounter Details Date Type Department Care Team (Late st Contact Info) Description 11/03/2024 Orders Only [facility] [address] [place], [place] [phone] ProviderTracey MD Social History Tobacco Use Types [...] t he electric, gas, oil or water [employer] threatened to shut off services in your [...] documented as of this encounter Care Teams Boats Renter Relationship Specialty Start Date End Date Kadi Tomlin MD [address] [place] [id number] PCP - General Family Medicine 05/21/21 documented as of this encounter
--- OUTSIDE RECORDS SUMMARY | 2025-01-03 14:12 | XMS_ITS | Encounter Summary ---
Author Organization [employer] Address [address] [address] [place] [address] Care Team Providers Care Telephone Appointment Clerk Name Role Phone Kadi Tomlin MD Primary Care Provider [phone] Reason for Visit * Reason Onset Date Comments Appointment Request 03/27/2023 Encounter Details Date Type Department Care Team ([facility] st Contact Info) Description 03/27/2023 Telephone [facility] [address] [place], [place] [phone] Kadi Tomlin MD [address] [place], [place] [phone] Appointment Request Social History Tobacco Use Types [...] with Enoc Boles. Please contact pt at [phone] documented in this encounter Plan of Treatment Not on file documented as of this encounter Visit Diagnoses Not on filedocumented in this encounter Additional Health Concerns Assessment Noted Time PHQ-9 Depression Total Score: 9 01/09/20 23 9:12 AM EDT documented as of this encounter Care Teams Telephone Appointment Clerk Relationship Specialty Start Date End Date Kadi Tomlin MD [address] [place] [address] PCP - General Family Medicine 05/21/21 documented as of this encounter
--- OUTSIDE RECORDS SUMMARY | 2025-01-03 14:12 | XMS_ITS | Encounter Summary ---
Author Organization [employer] Address [address] [facility] [address] [place] [address] Care Team Providers Care Contractor Broomcorn Threshing Name Role Phone Kadi Tomlin MD Primary Care Provider [phone] Reason for Visit * Reason Onset Date Comments Nurse Triage 04/05/2024 Encounter Details Date Type Department Care Team ([facility] st Contact Info) Description 04/05/2024 Telephone [facility] [address] [place], [place] [phone] Kadi Tomlin MD [address] [place], [place] [phone] Nurse Triage Social History Tobacco Use Types [...] 04/05/2024 12:14 PM EDT Triage call with [facility] [place] [id number] Pt reports low blood pressure of 106/80 [...] fordays. Pt is advised to come to [facility] today to be seen by provider [...] accepted this outcome Please contact pt @ [phone] Maldivian Speaker documented in this encounter Plan of Treatment Not on file documented as of this encounter Visit Diagnoses Not on filedocumented in this encounter Additional Health Concerns Assessment Noted Time PHQ-9 Depression Total Score: 15 024 9:17 AM EDT documented as of this encounter Care Teams Contractor Broomcorn Threshing Relationship Specialty Start Date End Date Kadi Tomlin MD [address] [place] [address] PCP - General Family Medicine 05/21/21 documented as of this encounter
--- OUTSIDE RECORDS SUMMARY | 2025-01-03 14:12 | XMS_ITS | Clinical Summary ---
Author Organization [facility] Address [address] [place] [address] Care Team Providers Care Remote Encoding Operations Supervisor Name Role Phone Unavailable Primary Care Provider [...] Health Maintenance Due Date Last Done Comments Anxiety Screening 1967 HPV Screening 1967 Hepatitis C Screening 1967 Pap + HPV 1967 Tobacco Screening 1967 Hypertension Screening (#1) 1985 Cervical Cancer Screening 1988 Pap Smear 1988 Breast Cancer Screening (Mammogram) 2007 CT Colonography 2012 Colonoscopy 2012 Colorectal Cancer Screening 2012 FIT/gFOBT 2012 Fecal DNA 2012 Flexible Sigmoidoscopy 2012 [id number] ( season) 2024 05/05/2022, 11/18/2021, 05/29/2021, Additional history exists Imm-Influenza (#1) 2024 06/24/2023, 0 09/29/2022, 07/27/2022, Additional history exists Alcohol and Drug Screen 09/21/2024 Depression Annual Screen 09/21/2024 Lipid Screening 08/21/2025 08/21/2020 Diabetes Screening 08/04/2026 08/04/2023, 08/04/2023 Imm-DTaP/Tdap/Td (3 - Td or Tdap) 11/18/2031 11/18/2021, 07/23/2011, 08/31/1998 Imm-Hepatitis B Completed 12/01/2005, 10/22, 11/02/2000, Additional history exists Imm-Zoster, Recombinant Completed 07/09/2020, 11/14 HIV Screening Completed 08/21/2020, 08/21/2020 Cervical Ablation/Cold-Knife Conization Discontinued Cervical Cryotherapy Discontinued Colposcopy Discontinued Endometrial Biopsy Discontinued Excision/Leep Discontinued HPV Genotyping Discontinued Vaginal Pap Discontinued Vulvoscopy [place]
--- OUTSIDE RECORDS SUMMARY | 2025-01-03 14:12 | XMS_ITS | Clinical Summary ---
Author Organization [employer] Address [address] [facility] [place] [address] Care Team Providers Care Ribbon Cleaner Name Role Phone Kadi Tomlin MD Primary Care Provider [phone] Allergies No known active allergies Medications * This document contains information received from the source organization and may not represent a complete record from that organization. linaCLOtide (Linzess) 290 MCG capsule Take 1 capsule by mouth in the morning. Active lansoprazole (Prevacid) [address] capsuleIndicati ons:Gastroesoph ageal reflux disease without esophagitis Take 1 capsule (30 mg) by mouth in the morning. 90 capsule 2 09/30/19 23 Active fluticasone (Flovent) 110 MCG/ACT inhalerIndicati ons:Moderate persistent asthma, unspecified whether complicated INHALE 2 PUFFS BY MOUTH EVERY 12 HOURS 36 g 3 02/14/20 23 Active loratadine (Claritin) 10 MG tabletIndicatio ns:Allergic rhinitis, unspecified seasonality, unspecified trigger TAKE 1 TABLET BY MOUTH EVERY DAY 90 tablet 3 10/15/19 24 Active propranolol (Inderal) 40 MG tablet Take 1 tablet (40 mg) by mouth 2 times daily. 180 tablet 3 10/19/19 24 Active Spacer/Aero-Hol ding Chambers (OptiChamber Citlalli) misc 1 each every 4 (four) hours if needed (asthma). 1 each 10/21/19 24 Active acetaminophen (Arthritis Pain APAP) 650 MG ER tablet Take 1 tablet (650 mg) by mouth every 8 (eight) hours if needed for mild pain. Do not crush, chew, or split. 40 tablet 10/21/19 24 Active albuterol 108 (90 Base) MCG/ACT inhaler INHALE 2 PUFFS BY MOUTH EVERY FOURS IF NEEDED 18 g 6 02/12/20 24 Active lidocaine (Lidoderm) 5 % patch APPLY 1 PATCH TOPICALLY TO THE SKIN IN THE MORNING. LEAVE ON FOR 12 HOURS AND OFF FOR 12 HOURS as DIRECTED 30 patch 6 02/12/20 24 Active butalbital-acet aminophen-caffe ine 50-325-40 MG tabletIndicatio ns:Chronic migraine without aura without status migrainosus, not intractable Take 1 tablet by mouth Once daily as needed for migraine (limit to 2 doses per week to avoid rebound headache) for up to 15 doses. 15 tablet 03/03/20 24 Active busPIRone (Buspar) 30 MG tabletIndicatio ns:Depressive disorder Take 1 tablet (30 mg) by mouth every 12 (twelve) hours if needed (anxiety). 180 tablet 2 03/28/20 24 Active cloNIDine (Catapres) 0.1 MG tabletIndicatio ns:Depressive disorder Take 1 tablet (0.1 mg) by mouth 2 times daily. 180 tablet 2 03/28/20 24 Active escitalopram (Lexapro) 10 MG tabletIndicatio ns:Depressive disorder TAKE 1 TABLET BY MOUTH IN THE MORNING 90 tablet 2 03/28/20 24 Active QUEtiapine (SEROquel) 50 MG tabletIndicatio ns:Depressive disorder Take 1 tablet (50 mg) by mouth 2 times daily. 180 tablet 2 03/28/20 24 Active QUEtiapine (SEROquel) 100 MG tabletIndicatio ns:Depressive disorder Take 1 tablet (100 mg) by mouth at bedtime. Also take Quetiapine 50 mg twice daily 90 tablet 2 03/28/20 24 Active atorvastatin (Lipitor) 40 MG tablet Take 1 tablet (40 mg) by mouth Once per day. 90 tablet 3 04/08/20 24 Active cholecalciferol (Vitamin D-3) 50 MCG (2000 UT) tabletIndicatio ns:Vitamin D deficiency Take 1 tablet by mouth [...] FOR PAIN 100 g 10/12/19 25 Active hydroCHLOROthia zide (HYDRODiuril) 25 MG tabletIndicatio ns:Benign hypertension TAKE 1 TABLET BY MOUTH EVERY DAY 90 tablet 3 10/18/19 25 Active baclofen (Lioresal) 10 MG tablet TAKE 1 TABLET BY MOUTH THREE TIMES DAILY IN THE MORNING, AT NOON, AND AT BEDTIME NEEDED FOR MUSCLE SPASMS 60 tablet 1 10/31/19 25 Active zolpidem (Ambien) 5 MG tabletIndicatio ns:Depressive disorder Take 1 tablet (5 mg) by mouth if needed at bedtime for sleep. 30 tablet 5 11/29/19 25 Active NIFEdipine XL (Procardia XL) 30 MG 24 hr tablet TAKE 1 TABLET BY MOUTH EVERY MORNING. DO NOT BREAK, CRUSH, DISSOLVE OR CHEW. 90 tablet 3 12/01/19 25 Active lisinopril 40 MG tabletIndicatio ns:Benign hypertension TAKE 1 TABLET BY MOUTH EVERY MORNING 90 tablet 3 12/01/19 25 Active amitriptyline (Elavil) 25 MG tablet TAKE 1 OR 2 TABLETS BY MOUTH AT BEDTIME 180 tablet 2 12/16/19 25 Active amitriptyline (Elavil) 25 MG tablet Take 1-2 tablets (25-50 mg) by mouth at bedtime. 180 tablet 2 03/28/20 24 025 Discontinued(R eorder (will not trigger notification to Pharmacy)) Active Problems Problem Noted Date Diagnosed Date [...] and is unsure about med delivery from [place] ([facility] [place]) as well as where her meds are [...] BP remains uncontrolled - reviewed stroke and RI symptoms, to ER/EMS if those symptoms occur [...] She is still awaiting first appointment at [facility] agency, and I have urged her to call them to F/U. Since I will be retiring, patient will be transferred to new [facility] psychiatric prescriber. Pt is aware that these will be televisits and that the provider will not be an employee of [facility]. She gives permission to share PHI. Any issues or concerns, contact [facility]. All her questions were answered and I [...] for serotonin syndrome. Awaiting first appointment at [facility] agency. On 07/20/2023 provider informed pt that [...] now staying with mother. Will refer for [facility] support. Still doing OK with medications. Continue [...] Encounters Date Type Department Care Team Description 01/02/2025 Patient Outreach [facility] MEDICINE [address] [place] [phone] Kadi Tomlin MD Care Coordination (C3/CM F/U) 12/29/2024 Telephone [facility] MED & PEDS [address] [place] [address] Kadi Tomlin MD No Show 12/28/2024 Patient Outreach [facility] [address] [place] [address] Kadi Tomlin MD Care Coordination (C3/CM Appt reminder) 12/26/2024 Telephone [facility] [address] [place] [address] Kadi Tomlin MD Nurse Triage 12/23/2024 9:00 AM EDT Office Visit [facility] OPTOMETRY [address] [place] [address] Rossy Clements, OD Presbyopia (Primary Dx) 12/16/2024 Patient Outreach [facility]ICINE [address] [place] [address] Kadi Tomlin MD Care Coordiantion (Outreach) 12/15/2024 Refill [facility] MED & PEDS [address] [place] [address] Kadi Tomlin MD 12/02/2024 [facility] (C3) Department [address] [place] [phone] Provider, Population Health [facility] 12/02/2024 Patient Outreach [facility] [address] [place] [address] Kadi Tomlin MD Care Coordination (Outreach) 12/02/2024 Anticoagulation - Warfarin Visit [facility] [address] [place] [address] Indira Vallejo RN 11/30/2024 Refill [facility] [address] [place] [address] Kadi Tomlin MD Benign hypertension 11/28/2024 Refill [facility] MED [facility] PEDS [address] [place] [address] Kadi Tomlin MD Depressive disorder 11/17/2024 Patient Outreach [facility] [address] [place] [address] Kadi Tomlin MD Care Coordination (Outreach) 11/15/[address] [address] Kadi Tomlin MD Results 11/04/2024 3:30 PM EST Procedure Visit [address] [address] Kadi Tomlin MD Screening for cervical cancer (Primary Dx); Depressive disorder; Encounter for screening mammogram for malignant neoplasm of breast 11/04/2024 Orders Only [address] [address] Kadi oTmlin MD 11/04/2024 Travel 11/04/2024 Telephone [facility] MED & PEDS [address] [place] [address] Kadi Tomlin MD Care Coordination ([facility] initial assessment/ enrollment) 11/03/2024 Orders Only [address] [address] Tracey Deasi MD 11/03/[address] [address] Myesha Ellington MD No Show 11/02/2024 Patient Outreach [facility] MED & PEDS [address] [place] [address] Kadi Tomlin MD Care Coordination (Outreach) 10/30/2024 Refill [facility] [address] [place] [phone] Kadi Tomlin MD 10/28/2024 Patient Outreach [facility] MED [facility] PEDS [address] [place] [address] Kadi Tomlin MD Care Coordination (Outreach) 10/24/[address] [address] Kadi Tomlin MD Transition Of Care (Tcm) (HDF- scheduled and SDOH screening will need to be complete it in office) 10/20/2024 Orders Only [facility] External Provider, [facility] 10/17/2024 Refill [facility] MED [facility] PEDS [address] [place] [address] Kadi Tomlin MD Benign hypertension 10/11/2024 Refill [facility] [address] [place] [address] Tushar Nickerson MD from Last 3 Months [...] Years (1 of 2 - PCV) 1986 COVID-19 Vaccine ( season) 2024 05/05/2022, 05/05/2022, 11/18/2021, Additional history exists Mammogram 07/14/2024 07/14/2023, 04/22, 05/15/2020, Additional history exists Depression Monitoring 09/28/2024 03/28/2024, 024 Depression Screening 03/28/2025 03/28/2024, 03/28/20 24 Colonoscopy 06/09/2025 06/09/2024, 09/07/2018 Colorectal Cancer Screening 06/09/2025 Lipid Panel 08/21/2025 08/21/2020 SDOH Screening 10/28/2025 10/28/2024 Cervical Cancer Screening 11/04/2025 Pap Smear 11/04/2025 11/04/2024 Tobacco Screening 11/09/2025 11/09/2024 HPV/Cotest 11/04/2029 11/04/2024, 07/02/2017 DTaP/Tdap/Td Vaccines (4 - Td or Tdap) [...] Procedure Name Priority Date/Time Associated Diagnosis Comments PAP SMEAR Routine 11/04/2024 12:00 AM EST HPV DNA, LOW/HIGH RISK Routine 12:00 AM EST XR CHEST 1 VIEW Routine 10/20/2024 4:49 [...] PANEL, STANDARD Routine 08/21/2020 11:31 AM EST from Last 3 Months or Most Recently Relevant to Health Maintenance Results * (ABNORMAL) HPV DNA, Low/High Risk (11/04/2024 12:00 AM EST) HPV High Risk Positive(A) Negative [facility] HPV Genotype 16 Negative Negative [facility] HPV Genotype 18 Negative Negative [facility] Comment:HPV testing performe d at [facility] (CLIA#[id number]), [address] [place] [id number].Testing for HPV was performed using the [employer] CODY 6800system. The presence of HPV in the female genital tract isassociated with a number of diseases, including cervicalcarcinoma. The HPV DNA high risk pool tests for HPV 31, 33,35, 39, 45, 51, 52, 56, 58, 59, 66 and 68. The testing forHPV 16 and 18 genotypes has also been performed. A positiveresult indicates detection of nucleic acid sequences fromone or more subtypes, whereas a negative result indicatessuch sequences were not detected. 11/04/2024 11/08/2024 9:5 0 AM EST us Kadi Tomlin MD LAB BLOOD ORDERABLES Final Res ult [facility] [address] [place] [address] [phone] * Pap Smear (11/04/2024 12:00 AM EST) 11/04/2024 11/08/2024 8:4 5 AM EST Narrative [facility] - 11/11/2024 4:30 PM EST ----- ------- Name: Danika Morales ?Age/Sex: 59/F ? : 1965 Unit#: [id number] ?? Attend Dr: Kadi Tomlin ?Re11/04/24 ?Status: DEP REF ? Location: HO.HHCLNP ? Disch: ? ----- ------- SPEC : [id number] ? RECD: 11/08/24-844 ? STATUS: ??SOUT ? REQ NUM: [id number] ? MARY: 11/04/24-0000 ? SUBM DR: Kadi Tomlin ? ENTERED: ??11/08/24-45 ?SP TYPE: Pap Smr ?OTHR DR: ? ORDERED: ??Pap Smear ? Interpretation ?? Satisfactory for evaluation. ?? Negative for intraepithelial lesion or malignancy. ?? No endocervical cells seen. ? HPV High Risk: ??Positive ? HPV Genotyping 16: ??Negative ?? HPV Genotyping 18: ??Negative ?Clinical Information LMP:Post-menopausal Previous PAP test: NILM Other surgery: Other history: ? Material Received ?? ThinPrep-Cervical ----- ------- Signed (signature on file) HUMBERTO Moreno (ASCP) 11/11/24 1630 ? ----- ------- ? END OF REPORT ? us Kadi Tomlin MD LAB CYTOLOGY ORDERABLES Final Result [facility] [address] [place] [address] [phone] * XR Chest 1 View (10/20/2024 4:49 PM EST) Anatomical Region Laterality Modality Chest Radiographic Shyla ging 10/20/2024 4:49 PM EST Narrative 10/20/2024 4:51 PM EST ? [facility] ?[address] ?[place] [address] ?XRay Report ? Signed ? Patient: Danika Morales ?MR#: [id number] ?? 2 ? : 1965 ?Acct:[id number] ? Age/Sex: 59 / F ?ADM Date: 10/20/24 ? Loc: HO.ED ? Attending Dr: ? Ordering Physician: Ghassan Hernandez MD ?? Date of Service: 10/20/24 ?? Procedure(s): XR chest 1V ?? Accession Number(s): [id number] ? cc: Ghassan Hernandez MD; Kadi Tomlin [...] by Olayinka Rudolph MD in OV> ? 10/20/ 1651 ? DD/ 1649 ? TD/TT: 10/20/25 1649 ? Veneer Lathe Operator: ? Procedure Note Donotuseinterpreter, Image - 10/20/[address] [address] XRay Report Signed Patient: Koby Morales#: [id number] 2 : 1965Acct:[id number] Age/Sex: 59 / FADM Date: 10/20/24 Loc: HO.ED Attending Dr: Ordering Physician: Ghassan Hernandez MD Date of Service: 10/20/24 Procedure(s): XR chest 1V Accession Number(s): [id number] cc: Ghassan Hernandez MD; Kadi Tomlin CLINICAL HISTORY: cough 1 view chest x-ray Comparison: None Findings: No consolidation or effusion. Heart size is normal. No acute fracture. IMPRESSION: 1. No acute findings. This document has been electronically signed by: Olayinka Rudolph MD on 10/20/2024 16:49:52 Dictated By: Olayinka Rudolph MD Signed By: <Electronically signed by Olayinka Rudolph MD in OV> 10/20/24 1651 DD/ 1649 TD/TT: 10/20/24 164 Veneer Lathe Operator: [facility] External Provider IMG XR PROCEDURES Final Result * Urinalysis, Complete, with Reflex to Culture (10/20/2024 4:11 PM EST) Color Urine Yellow [facility] Appearance Urine Clear [facility] PH 6.0 5.0 - 9.0 [facility] Glucose Urine UA Negative Negative mg/dL [facility] Urine Blood Negative Negative [facility] [place] - Urine 1.015 1.005 - 1.025 [facility] Urine Protein Negative Neg-Trace mg/dL [facility] Urine Ketones Negative Negative mg/dL [facility] Nitrite Urine Negative Negative [facility] Leukocyte Esterase Urine Negative Negative [facility] RBC Urine 0-2 0 - 2 /HPF [facility] Urine WBC 0-5 0 - 5 /HPF [facility] Urine Squamous Epithelial Cell 0-2 0 - 2 /HPF [facility] Urine Bacteria None Seen None Seen [facility] Hyaline Casts, Urine 0-2 0 - 2 /LPF [facility] 10/20/2024 4:11 PM EST 10/20/2024 4:13 PM EST Narrative [facility] - 10/20/2024 4:28 PM EST [id number], Clean Catch us Generic External Data Provider LAB URINE ORDERAB LES Final Result [facility] [address] [place] [address] [phone] * (ABNORMAL) Drug Monitoring, Panel 1, Screen, Urine (10/20/2024 4:11 PM EST) Opiate Screen Urine Not Detected Not Detect [facility] Comment:Opiate cut-off is 30 0 ng/mL.Positive results are unconfirmed and should not be used fornon-medical purposes. Barbiturates, Urine Not Detected Not Detect [facility] Comment:Barbiturate cut-off is 200 ng/mL.Positive results are unconfirmed and should not be used fornon-medical purposes. Phencyclidine Screen Urine Not Detected Not Detect [facility] Comment:Phencyclidine cut-of f is 25 ng/mL.Positive results are unconfirmed and should not be used fornon-medical purposes. Amphetamine Screen Urine Not Detected Not Detect [facility] Comment:Amphetamine cut-off is 1000 ng/mL.Positive results are unconfirmed and should not be used fornon-medical purposes. Benzodiazepines Screen Urine POSITIVE(A) Not Detect [facility] Comment:Benzodiazepine cut-o ff is 200 ng/mL.Positive results are unconfirmed and should not be used fornon-medical purposes. Cocaine Screen Urine POSITIVE(A) Not Detect [facility] Comment:Cocaine cut-off is 3 00 ng/mL.Positive results are unconfirmed and should not be used fornon-medical purposes. Cannabinoid Screen Urine Not Detected Not Detect [facility] Comment:Cannabinoid cut-off is 50 ng/mL.Positive results are unconfirmed and should not be used fornon-medical purposes. Methadone Screen, Urine Not Detected Not Detect ng/mL [facility] Comment:Methadone cut-off is 300 ng/mL.Positive results are unconfirmed and should not be used fornon-medical purposes. FENTANYL URINE Not Detected Not Detect [facility] Comment:Fentanyl cut-off is 1 ng/mL.Positive results are unconfirmed and should not be used fornon-medical purposes. Oxycodone Urine Screen Not Detected Not Detect ng/mL [facility] Comment:Oxycodone cut-off is 100 ng/mL.Positive results are unconfirmed and should not be used fornon-medical purposes. Buprenorphine Screen Not Detected Not Detect ng/mL [facility] Comment:Buprenorphine cut-of f is 5 ng/mL.Positive results are unconfirmed and should not be used fornon-medical purposes. 10/20/2024 4:11 PM EST 10/20/2024 4:13 PM EST us Generic External Data Provider LAB URINE ORDERAB LES Final Result Performing Organization Address City/State/[facility] Co de Phone Number [facility] [address] [place] [phone] * VENOUS BLOOD GAS (10/20/2024 3:55 PM EST) VBG pH 7.42 7.32 - 7.43 [facility] Comment:METER #: [id number] VBG PCO2 40 mmHg [facility] Comment:METER #: [id number] VBG PO2 61 mmHg [facility] Comment:METER #: [id number] VBG Base Excess 1.8 mmol/L [facility] Comment:METER #: [id number] VBG HCO3 26 22 - 26 mmol/L [facility] Comment:METER #: [id number] O2 Sat, Nacho 90.0 % [facility] Comment:METER #: [id number] 10/20/2024 3:55 PM EST 10/20/2024 4:01 PM EST Generic External Data Provider LAB BLOOD ORDERAB LES Final Result Performing Organization Address [facility] [address]/[facility] Co pa Phone Number [facility] [address] [place] [phone] * Acetaminophen level (10/20/2024 3:51 PM EST) Acetaminophen LAB <3 <30 mcg/mL [facility] 10/20/2024 3:51 PM EST 10/20/2024 3:54 PM EST Generic External Data Provider LAB BLOOD ORDERAB LES Final Result Performing Organization Address [facility] Phone Number [facility] [address] [place] [phone] * (ABNORMAL) Salicylate (10/20/2024 3:51 PM EST) Salicylate <5.0(L) 15 - 30 mg/dL [facility] 10/20/2024 3:51 PM EST 10/20/2024 3:54 PM EST Generic External Data Provider LAB BLOOD ORDERAB LES Final Result Performing Organization Address [facility] Phone Number [facility] [address] [place] [phone] * High Sensitivity Troponin I (10/20/2024 12:07 PM EST) TROPONIN I HIGH SENSITIVITY <2.7 <3.5 - 17.0 ng/L [facility] Comment:The [place] high sens itivity Troponin-I results should beused in conjunction with other diagnostic information suchas ECG, clinical observations and information, and patientsymptoms to aid in the diagnosis of RI. 10/20/2024 12:0 7 PM EST 10/20/2024 12:13 PM EST us Generic External Data Provider LAB BLOOD ORDERAB LES Final Result Performing Organization Address [facility] [address]/ZIP Co de Phone Number [facility] [address] [place] [phone] * Ethanol (10/20/2024 12:07 PM EST) ETHANOL (MG/DL) IN SER/PLAS <10 mg/dL [facility] Comment:Serum/plasma ethanol results are to be used formedical/treatment purposes only. 10/20/2024 12:0 7 PM EST 10/20/2024 12:13 PM EST Generic External Data Provider LAB BLOOD ORDERAB LES Final Result Performing Organization Address [facility] [address]/[facility] Co de Phone Number [facility] [address] [place] [phone] * SARS-CoV-2 RNA, Influenza A/B, and RSV RNA, Ql NAAT (10/20/2024 12:07 PM EST) Pathologist [facility] Influenza A PCR NEGATIVE Negative [facility] Influenza B PCR NEGATIVE Negative [facility] Resp Syncy Virus RNA Qual PCR NEGATIVE Negative [facility] SARS COV2 PCR NEGATIVE Negative [facility] Comment:All test results mus t [...] use by authorized laboratories.Testing performed on the [employer] GeneXpert utilizingreal-time RT-PCR.All SARS CoV2 and positive influenza A/B results arereported to [facility]. 10/20/2024 12:0 7 PM EST 10/20/2024 12:13 PM EST us Generic External Data Provider LAB MICROBIOLOGY - GENERAL ORDERABLES Final Result [facility] [address] [place] [address] [phone] * (ABNORMAL) CBC auto differential (10/20/2024 12:07 PM EST) White Blood Count 13.3(H) 4.8 - 10.8 X10*3/uL [facility] Red Blood Count 3.78(L) 4.20 - 5.50 X10*6/uL [facility] Hemoglobin 9.8(L) 12.0 - 16.0 g/dl [facility] Hematocrit 31.6(L) 37.0 - 47.0 % [facility] Mean Corpuscular Volume 83.6 80.0 - 98.0 fL [facility] Mean Corpuscular Hemoglobin 25.9(L) 27.0 - 33.0 pg [facility] Mean Corpuscular HGB Conc 31.0 31.0 - 35.0 g/dl [facility] Red Cell Distribution Width 15.7 11.0 - 16.0 % [facility] Platelet Count 268 160 - 400 X10*3/uL [facility] Mean Platelet Volume 10.0 9.4 - 12.3 fL [facility] Neutrophils Percent Auto 81.9(H) 45 - 73 % [facility] Imm Gran Pct Auto 0.5(H) 0.0 - 0.4 % [facility] Lymphocytes Percent Auto 11.2(L) 20 - 40 % [facility] Monocytes Percent Auto 4.2 2 - 11 % [facility] Eosinophils Percent Auto 1.9 0 - 4 % [facility] Basophils Percent Auto 0.3 0 - 2 % [facility] NRBC Pct Auto 0.0 0.0 - 0.2 /100WBC [facility] Neutrophils Absolute Auto 10.9(H) 2.0 - 8.3 x10*3/uL [facility] Imm Gran Abs Auto 0.06(H) 0.00 - 0.03 X10*3/uL [facility] Lymphocytes Absolute Auto 1.5 1.2 - 4.9 X10*3/uL [facility] Monocytes Absolute Auto 0.6 0.1 - 1.2 X10*3/uL [facility] Eosinophils Absolute Auto 0.3 0.0 - 0.4 X10*3/uL [facility] Basophils Absolute Auto 0.0 0.0 - 0.2 X10*3/uL [facility] NRBC Abs Auto 0.000 0.0 - 0.012 X10*3/uL [facility] 10/20/2024 12:0 7 PM EST 10/20/2024 12:13 PM EST us Generic External Data Provider LAB BLOOD ORDERAB LES Final Result Performing Organization Address [facility] [address]/[facility] de Phone Number [facility] [address] [place] [phone] * Prothrombin Time-INR (10/20/2024 12:07 PM EST) Prothrombin Time 11.4 10.9 - 12.4 SEC [facility] INTERNATIONAL NORM RATIO 1.0 0.9 - 1.1 [facility] Comment:INTERNATIONAL NORMAL IZED RATIO (INR) [...] ORDERAB LES Final Result Performing Organization Address [facility] [address]/ZIP Co de Phone Number [facility] [address] [place] [address] [phone] * Lipase (10/20/2024 12:07 PM EST) Lipase 13 8 - 78 U/L [facility] 10/20/2024 12:0 7 PM EST 10/20/2024 12:13 PM EST us Generic External Data Provider LAB BLOOD ORDERAB LES Final Result Performing Organization Address [facility] [address]/[facility] Co de Phone Number [facility] [address] [place] [phone] * Creatine Kinase, Total (10/20/2024 12:07 PM EST) Pathologist [facility] Creatine Kinase Total 105 26 - 140 U/L [facility] 10/20/2024 12:0 7 PM EST 10/20/2024 12:13 PM EST us Generic External Data Provider LAB BLOOD ORDERAB LES Final Result Performing Organization Address [facility] Co de Phone Number [facility] [address] [place] [address] [phone] * Ammonia, Plasma (10/20/2024 12:07 PM EST) Pathologist [facility] Ammonia (P) 29 13 - 55 umol/L [facility] 10/20/2024 12:0 7 PM EST 10/20/2024 12:13 PM EST us Generic External Data Provider LAB BLOOD ORDERAB LES Final Result Performing Organization Address [facility] [address]/[facility] Co de Phone Number [facility] [address] [place] [address] [phone] * (ABNORMAL) Comprehensive Metabolic Panel (10/20/2024 12:07 PM EST) Pathologist [facility] Sodium 142 135 - 145 mmol/L [facility] Potassium 4.0 3.3 - 5.1 mmol/L [facility] Chloride 109(H) 96 - 108 mmol/L [facility] Carbon Dioxide 26 22 - 29 mmol/L [facility] Anion Gap 11(L) 12 - 20 [facility] Urea Nitrogen (BUN) 13 9 - 16 mg/dL [facility] Creatinine, Serum 0.70 0.5 - 1.4 mg/dL [facility] Creatinine Clr Calc Pharmacy 84.6 [facility] Comment:Provided height and weight: 160.02 cm,72.575 kg.eGFR (calculated from the MDRD study equation) and eCrCl(calculated from the Cockcroft-Gault equation) are based ondifferent parameters and may not yield comparable results.If eCrCl result is absurd, please check patient'sheight/weight. Estimated Glomerular Filt Rate >60 [facility] Comment:Chronic Kidney Disea se: Estimated GFR < 60 mL/min/1.47x9Kkeabv Kidney Disease: Estimated GFR < 15 mL/min/1.73m2 Glucose 98 60 - 115 mg/dL [facility] Calcium 9.6 8.4 - 10.2 mg/dL [facility] Bilirubin, Total 0.2 0.0 - 1.0 mg/dL [facility] Aspartate Amino Transferase 27 5 - 31 U/L [facility] Alanine Aminotransferase 23 0 - 31 U/L [facility] Total Protein 7.5 6.5 - 8.0 g/dL [facility] Albumin Level 3.8 3.5 - 5.0 g/dL [facility] Alkaline Phosphatase 115 39 - 117 U/L [facility] 10/20/2024 12:0 7 PM EST 10/20/2024 12:13 PM EST us Generic External Data Provider LAB BLOOD ORDERAB LES Final Result [facility] [address] [place] [phone] * CT Head w/o Contrast (10/20/2024 11:08 AM EST) Anatomical Region Laterality Modality Head, Neck Computed Tomogra phy 10/20/2024 11:0 8 AM EST Narrative 10/20/2024 12:07 PM EST ? [facility] ?[address] ?[place] [address] ? CT Scan Report ? Signed ? Patient: Andrew,Danika ?MR#: [id number] ?? 2 ? : 1965 ?Acct:[id number] ? Age/Sex: 59 / F ?ADM Date: 10/20/24 ? Loc: HO.ED ? Attending Dr: ? Ordering Physician: Barrett Chavira ?? Date of Service: 10/20/24 ?? Procedure(s): CT head/brain wo IV con ?? Accession Number(s): [id number] ? cc: Kadi Tomlin; Barrett Chavira ? Report Number: ?? [id number]: Total DLP = ??667.00 mGy-cm ?? EXAMINATION: [...] DD/ 1108 ? TD/TT: 10/20/24 1144 ? Veneer Lathe Operator: ? Procedure Note Maru Chahal - 10/20/[address] [place] [address] [address] Scan Report Signed Patient: Koby Morales#: [id number] 2 : 1965Acct:[id number] Age/Sex: 59 / FADM Date: 10/20/24 Loc: HO.ED Attending Dr: Ordering Physician: Barrett Chavira Date of Service: 10/20/24 Procedure(s): CT head/brain wo IV con Accession Number(s): [id number] cc: Rogelio Tomlin Daniel Report Number: [id number]: Total DLP = 667.00 mGy-cm EXAMINATION: CT [...] Jimmy Singh MD 10/20/2024 12:04 PM EST Dictated By: Jimmy Koroma MD Signed By: <Electronically signed by Jimmy Gooden MDin OV> 10/20/24 1204 DD/ 1108 TD/TT: 10/20/24 1144 Veneer Lathe Operator: [facility] External Provider IMG CT PROCEDURES Final Result * Hm Colonoscopy (06/09/2024 11:24 AM EDT) Historical Provider HEALTH MAINTENANCE Final Result * BI Mammogram Screening Tomosynthesis Bilateral (07/14/2023 3:15 PM EDT) Anatomical Region Laterality Modality Breast Bilateral Mammography 07/14/2023 3:15 PM EDT Narrative 08/01/2023 1:28 PM EST ? [facility] ? [address] ?[place] [address] ? Mammography Report ? Signed ? Patient: Andrew,Danika ?MR#: [id number] ?? 2 ? : 1965 ?Acct:[id number] ? Age/Sex: 57 / F ?ADM Date: 10/24/23 ? Loc: HO.MAMMO ? Attending Dr: Kadi Tomlin MD ? Ordering Physician: Kadi Tomlin ?Results: 1Negative ? Date of Service: 07/14/23 ?Follow Up: 1 Year From Orig ?? inal Mammogram ? Procedure(s): MM tomosynthesis screening BI ?? Accession Number(s): [id number] ? cc: Kadi Tomlin ? EXAMINATION: ?? [...] by Petrona Majano MD in OV> ? 23 1324 ? DD/ 1515 ? TD/TT: ? Veneer Lathe Operator: ? Procedure Note Donotuseinterpreter, Image - 08/01/2023 [place] [facility] [address] [place] [address] Mammography Report Signed Patient: Koby Morales#: [id number] 2 : 1965Acct:[id number] Age/Sex: 57 / FADM Date: 07/14/23 Loc: PARISA Attending Dr: Kadi Tomlin MD Ordering Physician: Khadar Tomlinults: 1Negative Date of Service: 07/14/23Follow Up: 1 Year From Orig inal Mammogram Procedure(s): MM tomosynthesis screening BI Accession Number(s): [id number] cc: Kadi Tomlin EXAMINATION: MM SCREENING DIGITAL [...] in OV> 08/01/23 1324 DD/ 1515 TD/TT: Veneer Lathe Operator: Kadi Tomlin MD IMG BI PROCEDURES Edited Resul t - Final * HIV 1/2 ANTIGEN/ANTIBODY,FOURTH GENERATION W/RFL (08/21/2020 11:31 AM EST) HIV-1/2 ANTIGEN AND ANTIBODIES, 4TH GENERATION W/ REFLEX NON-REACT [facility] NON-REACT [facility] Comment: HIV-1 antigen and HIV-1/HIV-2 [...] ? For additional information please refer to http://Net 263.Cross Pixel Media.Language Cloud/faq/ESB311 (This link is being provided for informational/ educational purposes only.) ? The performance of this assay has not been clinically validated in patients less than 2 years old. ?? HIV-1/2 ANTIGEN AND ANTIBODIES, 4TH GENERATION W/ REFLEX NON-REACT [facility] NON-REACT [facility] Comment: HIV-1 antigen and HIV-1/HIV-2 [...] ? For additional information please refer to http://Net 263.Groopie/faq/ROJ623 (This link is being provided for informational/ educational purposes only.) ? The performance of this assay has not been clinically validated in patients less than 2 years old. ?? 08/21/2020 11:3 1 AM EST us Shantelle Adame MD LAB BLOOD ORDERABLES Final Re sult [facility] [address] * (ABNORMAL) LIPID PANEL, STANDARD (08/21/2020 [...] ?? Alistair DELAROSA et al. CANDI. 2013;310(19): 2067-3284 ?? (http://education.99Presents/faq/ZVX668) Non-HDL Cholesterol 168(H) <130 mg/dL (calc) [facility] [...] ?? Alistair DELAROSA et al. CANDI. 2013;310(19): 7103-0367 ?? (http://Net 263.99Presents/faq/OTR222) Non-HDL Cholesterol 168(H) <130 mg/dL (calc) [facility] [...] ?? Alistair DELAROSA et al. CANDI. 2013;310(19): 0708-5323 ?? (http://Invisible/faq/XGO026) Non-HDL Cholesterol 168(H) <130 mg/dL (calc) [facility] Comment: For patients with diabetes plus 1 major ASCVD risk ?? factor, treating to a non-HDL-C goal of <100 mg/dL ?? (LDL-C of <70 mg/dL) is considered a therapeutic ?? option. Triglycerides 156(H) <150 mg/dL [facility] 08/21/2020 11:3 1 AM EST us Shantelle Adame MD LAB BLOOD ORDERABLES Final Re sult [facility] [address] from Last 3 Months or Most Recently Relevant to Health Maintenance Insurance [employer] C3 Care Teams Ribbon Cleaner Relationship Specialty Start Date End Date Kadi Tomlin MD [address] [facility] [place] [phone] PCP - General Family Medicine 05/21/21
--- OUTSIDE RECORDS SUMMARY | 2025-01-03 14:12 | XMS_ITS | Encounter Summary ---
Author Organization [employer] Address [address] [place] [address] 7t [place] [address] Care Team Providers Care Tier In Name Role Phone Kadi Tomlin MD Primary Care Provider Reason for Visit * Reason Comments Med Refill Encounter Details Date Type Department Care Team (Late st Contact Info) Description 03/25/2023 Refill [facility] [address] [place], [place] [phone] Enoc Boles FNP Depressive disorder Social History [...] documented as of this encounter Care Teams Tier In Relationship Specialty Start Date End Date Kadi Tomlin MD 230 [facility] [place] [address] PCP - General Family Medicine 05/21/21 documented as of this encounter
--- OUTSIDE RECORDS SUMMARY | 2025-01-03 14:12 | XMS_ITS | Encounter Summary ---
Author Organization [employer] Address [address] [facility] 7t [place] [address] Care Team Providers Care Casualty Claims Supervisor Name Role Phone Kadi Tomlin MD Primary Care Provider [phone] Reason for Visit * Reason Comments Care Coordination C3/CM F/U Encounter Details Date Type Department Care Team (Latest Contact Info) Description 01/02/2025 Patient Outreach [facility] MEDICINE [address] [place], [place] [phone] Kadi Tomlin MD 230 [place], [place] [phone] Care Coordination (C3/CM F/U) Social History Tobacco Use Types Packs/Day Years [...] Progress Notes * Mary Jo Hernandez - 01/02/2025 9:22 AM EDT CHW Mary Jo Hernandez placed outbound call to patient to follow up on SDOH needs. Patient's name, and address confirmed. Patient states is doing well. No further questions or concerns. CHW reinforced direct contact information or CM for any additional questions or concerns and extended clinic hours on Mondays and Wednesdays, and Walk-In Urgent Care Located in [facility]. Patient provided with after-hours line for [facility], , which offer night time triage service and option to transfer to bilingual medical receptionist provider if needed. Patient verbalizes understanding, and able to repeat back to fha underwriter. A follow up call willbe placed within 10 days, patient agrees with plan. documented in this encounter Plan of Treatment Not on file documented as of this encounter Visit Diagnoses Not on filedocumented in this encounter Additional Health Concerns Assessment Noted Time PHQ-9 Depression Total Score: 15 024 9:17 AM EDT documented as of this encounter Care Teams Casualty Claims Supervisor Relationship Specialty Start Date End Date Kadi Tomlin MD [address] [place] [address] PCP - General Family Medicine 05/21/21 documented as of this encounter
--- OUTSIDE RECORDS SUMMARY | 2025-01-03 14:12 | XMS_ITS | Encounter Summary ---
Author Organization [employer] Address [address] [place] [address] 7t [place] [address] Care Team Providers Care Water Hydrant Installer Name Role Phone Kadi Tomlin MD Primary Care Provider [phone] Reason for Visit * Reason Onset Date Comments Appointment Request 12/25/2022 Encounter Details Date Type Department Care Team ([facility] st Contact Info) Description 12/25/2022 Telephone [facility] MEDICINE 230 [place], [place] [phone] Kadi Tomlin MD 230 [place], [place] [phone] Appointment Request Social History Tobacco Use Types [...] schedule an appt Please contact pt at [phone] documented in this encounter Plan of Treatment Not on file documented as of this encounter Visit Diagnoses Not on filedocumented in this encounter Additional Health Concerns Assessment Noted Time PHQ-9 Depression Total Score: 7 11/11/19 23 8:54 AM EST documented as of this encounter Care Teams Water Hydrant Installer Relationship Specialty Start Date End Date Kadi Tomlin MD [address] [place] [address] PCP - General Family Medicine 05/21/21 documented as of this encounter
--- OUTSIDE RECORDS SUMMARY | 2025-01-03 14:12 | XMS_ITS | Encounter Summary ---
Author Organization [employer] Address [address] [facility] 7t [place] [address] Care Team Providers Care Rn Surgical Pcu Name Role Phone Kadi Tomlin MD Primary Care Provider Reason for Visit * Reason Onset Date Comments No Show 12/29/2024 Encounter Details Date Type Department Care Team ([facility] st Contact Info) Description 12/29/2024 Telephone [facility] [address] [place], [place] [phone] Kadi Tomlin MD 230 [place] [address] No Show Social History Tobacco Use Types [...] encounter Miscellaneous Notes * Telephone Encounter - Conrado Gambino - 12/29/2024 1:43 PM EDT 12/29/24 no show for Shoulder injection documented in this encounter Plan of Treatment Not on file documented as of this encounter Visit Diagnoses Not on filedocumented in this encounter Additional Health Concerns Assessment Noted Time PHQ-9 Depression Total Score: 15 024 9:17 AM EDT documented as of this encounter Care Teams Rn Surgical Pcu Relationship Specialty Start Date End Date Kadi Tomlin MD [address] [place] [phone] PCP - General Family Medicine 05/21/21 documented as of this encounter
--- OUTSIDE RECORDS SUMMARY | 2025-01-03 14:12 | XMS_ITS | Encounter Summary ---
Author Organization [employer] Address [address] [facility] 7t [place] [address] Care Team Providers Care Precision Honing Machine Operator Name Role Phone Kadi Tomlin MD Primary Care Provider [phone] Encounter Details Date Type Department Care Team (Late st Contact Info) Description 06/19/2023 Orders Only [facility] MEDICINE [address] [place], [place] [phone] Kadi Tomlin MD 230 [place], [place] [phone] Social History Tobacco Use Types Packs/Day Years [...] documented as of this encounter Care Teams Precision Honing Machine Operator Relationship Specialty Start Date End Date Kadi Tomlin MD 230 [place], [place] [phone] PCP - General Family Medicine 05/21/21 documented as of this encounter
--- OUTSIDE RECORDS SUMMARY | 2025-01-03 14:12 | XMS_ITS | Encounter Summary ---
Author Organization [employer] Address [address] [facility] 7t [place] [address] Care Team Providers Care Welder Plastic Name Role Phone Kadi Tomlin MD Primary Care Provider Encounter Details Date Type Department Care Team (Late st Contact Info) Description 11/28/2022 Orders Only [facility] MEDICINE 230 [place], [place] [phone] Kadi Tomlin MD [address] [place], [place] [phone] Other hyperlipidemia (Primary Dx); Pain of lower [...] EDT Narrative 12/17/2022 8:44 AM EDT ? [facility] ?[address] ?[place] [address] ?XRay Report ? Signed ? Patient: Danika Morales ?MR#: [id number] ?? 2 ? : 1965 ?Acct:[id number] ? Age/Sex: 57 / F ?ADM Date: 12/10/22 ? Loc: HO.XRAY ? Attending Dr: Kadi Tomlin MD ? Ordering Physician: Kadi Tomlin ?? Date of Service: 12/10/22 ?? Procedure(s): XR wrist LT min 3V ?? Accession Number(s): [id number] ? cc: Kadi Tomlin ? EXAMINATION: ?? [...] 0841 ? DD/ 1048 ? TD/TT: ? Painter Helper Spray: MSM ? Procedure Note Donfaustinater, Image - 01/05/2023 [place] [address] XRay Report Signed Patient: Koby Morales#: [id number] 2 : 1965Acct:[id number] Age/Sex: 57 / FADM Date: 12/10/22 Loc: HO.GLADIS Attending Dr: Kadi Tomlin MD Ordering Physician: Kadi Tomlin Date of Service: 12/10/22 Procedure(s): XR wrist LT min 3V Accession Number(s): [id number] cc: Kadi Tomlin EXAMINATION: XR ELBOW, LEFT [...] in OV> 12/17/22 0841 DD/ 1048 TD/TT: Painter Helper Spray: BLANCA [facility] External Provider IMG XR PROCEDURES Final Result * XR Elbow 1-2 Views Left (12/10/2022 10:48 AM EDT) Anatomical Region Laterality Modality Upper Extremities, Elbow Left Radiogr aphic Imaging 12/10/2022 10:4 8 AM EDT Narrative 12/17/2022 8:44 AM EDT ? [facility] ?[address] ?[place] [address] ?XRay Report ? Signed ? Patient: Andrew,Danika ?MR#: [id number] ?? 2 ? : 1965 ?Acct:[id number] ? Age/Sex: 57 / F ?ADM Date: 12/10/22 ? Loc: HO.XRAY ? Attending Dr: Kadi Tomlin MD ? Ordering Physician: Kadi Tomlin ?? Date of Service: 12/10/22 ?? Procedure(s): XR elbow LT 2V ?? Accession Number(s): [id number] ? cc: Kadi Tomlin ? EXAMINATION: ?? [...] 0841 ? DD/ 1048 ? TD/TT: ? Painter Helper Spray: BLANCA ? Procedure Note Donfaustinater, Image - 12/17/[address] [address] XRay Report Signed Patient: Koby Morales#: [id number] 2 : 1965Acct:[id number] Age/Sex: 57 / FADM Date: 12/10/22 Loc: HO.GLADIS Attending Dr: Kadi Tomlin MD Ordering Physician: Kadi Tomlin Date of Service: 12/10/22 Procedure(s): XR elbow LT 2V Accession Number(s): [id number] cc: Kadi Tomlin EXAMINATION: XR ELBOW, LEFT [...] in OV> 12/17/22 0841 DD/ 1048 TD/TT: Painter Helper Spray: BLANCA [facility] External Provider IMG XR PROCEDURES Final Result * XR Shoulder 2+ Views Left (12/10/2022 10:48 AM EDT) Anatomical Region Laterality Modality Upper Extremities, Shoulder Left Radi ographic Imaging 12/10/2022 10:4 8 AM EDT Narrative 12/17/2022 8:44 AM EDT ? [facility] ?[address] ?[place] [address] ?XRay Report ? Signed ? Patient: Andrew,Danika ?MR#: [id number] ?? 2 ? : 1965 ?Acct:[id number] ? Age/Sex: 57 / F ?ADM Date: 12/10/22 ? Loc: HO.XRAY ? Attending Dr: Kadi Tomlin MD ? Ordering Physician: Kadi Tomlin ?? Date of Service: 12/10/22 ?? Procedure(s): XR shoulder LT min 2V ?? Accession Number(s): [id number] ? cc: Kadi Tomlin ? EXAMINATION: ?? [...] 0841 ? DD/DT: //8 ? TD/TT: ? Painter Helper Spray: MSM ? Procedure Note Fela, Image - 12/17/[address] [address] XRay Report Signed Patient: Koby Morales#: [id number] 2 : 1965Acct:[id number] Age/Sex: 57 / FADM Date: 12/10/22 Loc: HO.XRAY Attending Dr: Kadi Tomlin MD Ordering Physician: Kadi Tomlin Date of Service: 12/10/22 Procedure(s): XR shoulder LT min 2V Accession Number(s): [id number] cc: Kadi Tomlin EXAMINATION: XR ELBOW, LEFT [...] in OV> 12/17/22 0841 DD/ 1048 TD/TT: Painter Helper Spray: BLANCA [facility] External Provider IMG XR PROCEDURES Final Result documented in this encounter Visit Diagnoses Diagnosis Other hyperlipidemia- Primary Pain of lower extremity, unspecified laterality documented in this encounter Additional Health Concerns Assessment Noted Time PHQ-9 Depression Total Score: 7 11/11/19 23 8:54 AM EST documented as of this encounter Care Teams Welder Plastic Relationship Specialty Start Date End Date Kadi Tomlin MD [address] [place] [address] PCP - General Family Medicine 05/21/21 documented as of this encounter
--- OUTSIDE RECORDS SUMMARY | 2025-01-03 14:12 | XMS_ITS | Encounter Summary ---
Author Organization [employer] Address 75 [facility] 7t [place] [address] Care Team Providers Care Identification Technician Name Role Phone Kadi Tomlin MD Primary Care Provider [phone] Encounter Details Date Type Department Care Team (Late st Contact Info) Description 05/28/2023 Orders Only [facility] MEDICINE 230 [place], [place] [phone] Provider, MD Tracey Social History Tobacco Use [...] documented as of this encounter Care Teams Identification Technician Relationship Specialty Start Date End Date Kadi Tomlin MD 230 [place] [address] PCP - General Family Medicine 05/21/21 documented as of this encounter
--- OUTSIDE RECORDS SUMMARY | 2025-01-03 14:12 | XMS_ITS | Clinical Summary ---
Author Organization [facility] ity Address [address] [place] [address] Care Team Providers Care Production Expediter Name Role Phone Unavailable Primary Care Provider [...] Influencers of Health Screening 10/16/2023 COVID-19 Vaccine ( - 2023-2 5 season) 2024 Influenza Vaccine (Season Ended) 2025 HIB Vaccines Aged Out No longer eligi [...] age to complete this topic Meningococcal B Vaccine Aged Out No l onger eligible based on patient's age to complete [...]
== END 2025-01-03 12:26 | disposition home or self-care (01) ==
LOC: HO.HOS 11:27
PROVIDERS: PCP General Practice; Visit Provider Physical Medicine & Rehabilitation
DX: S46.811A Strain of other muscles, fascia and tendons at shoulder and upper arm level, right arm, initial encounter (principal); S46.211A Strain of muscle, fascia and tendon of other parts of biceps, right arm, initial encounter; R20.0 Anesthesia of skin
CPT/HCPCS: 99204

== ENCOUNTER 2025-01-03 11:27 | Outpatient (REF) | payer MEDICAID, SELFPAY ==
--- NOTE | ~2025-01-03 | XR_ITS ---
CLINICAL HISTORY: S46.811A - Strain of other muscles, fascia and tendons at shoulder and u... --- Add itional Notes or Special Instructions: right shoulder biceps deltoid is swollen 2 view right humerus Comparison: None Findings: No fractures or dislocations. Small tiny densities projecting over the soft tissues of predominantly the dorsal aspect of the middle 3rd of the arm may be due to dystrophic calcifications/tiny phleboliths versus less likely due to intra-articular bodies. IMPRESSION: No acute fracture. This document has been electronically signed by: Leighann Baer MD on 01/05/2025 12:14:49
--- NOTE | ~2025-01-03 | XR_ITS ---
CLINICAL HISTORY: M54.2 - Cervicalgia 3 views cervical spine Comparison: None Findings: Normal alignment without acute fracture. Right-sided cervical spine curvature. No significant disc space narrowing. Upper cervical spine facet osteoarthritis. Unremarkable prevertebral soft tissues. IMPRESSION: No acute fracture. This document has been electronically signed by: Leighann Baer MD on 01/05/2025 12:18:49
--- OUTSIDE RECORDS SUMMARY | 2025-01-03 14:36 | XMS_ITS | Encounter Summary ---
Author Organization [employer] Address [address] [facility] 7t [place] [address] Care Team Providers Care Agriculture Inspector Name Role Phone Kadi Tomlin MD Primary Care Provider [phone] Encounter Details Date Type Department Care Team (Late st Contact Info) Description 11/03/2024 Orders Only [facility] MEDICINE [address] [place], [place] [phone] ProviderTracey MD Social History Tobacco Use Types [...] t he electric, gas, oil or water [employer] threatened to shut off services in your [...] documented as of this encounter Care Teams Agriculture Inspector Relationship Specialty Start Date End Date Kadi Tomlin MD [address] [place] [phone] PCP - General Family Medicine 05/21/21 documented as of this encounter
--- OUTSIDE RECORDS SUMMARY | 2025-01-03 14:37 | XMS_ITS | Encounter Summary ---
Author Organization [employer] Address [address] [facility] 7t [place] [address] Care Team Providers Care Him Director Name Role Phone Kadi Tomlin MD Primary Care Provider [phone] Reason for Visit * Reason Comments Care Coordination C3/CM F/U Encounter Details Date Type Department Care Team (Latest Contact Info) Description 01/02/2025 Patient Outreach [facility] MEDICINE 230 [place], [place] [phone] Kadi Tomlin MD 230 [place], [place] [phone] Care Coordination (C3/CM F/U) Social History Tobacco [...] Wednesdays, and Walk-In Urgent Care Located in [facility]. Patient provided with after-hours line for [facility], , which offer night time triage service and option to transfer to sales donor recruitment representative provider if needed. Patient verbalizes understanding, and able to repeat back to scenario writer. A follow up call willbe placed within 10 days, patient agrees with plan. documented in this encounter Plan of Treatment Not on file documented as of this encounter Visit Diagnoses Not on filedocumented in this encounter Additional Health Concerns Assessment Noted Time PHQ-9 Depression Total Score: 15 024 9:17 AM EDT documented as of this encounter Care Teams Him Director Relationship Specialty Start Date End Date Kadi Tomlin MD [address] [place] [address] PCP - General Family Medicine 05/21/21 documented as of this encounter
--- OUTSIDE RECORDS SUMMARY | 2025-01-03 14:37 | XMS_ITS | Encounter Summary ---
Author Organization [employer] Address [address] [facility] 7t [place] [address] Care Team Providers Care Chef De Partie Name Role Phone Kadi Tomlin MD Primary Care Provider [phone] Encounter Details Date Type Department Care Team (Late st Contact Info) Description 06/19/2023 Orders Only [facility] MEDICINE 230 [place], [place] [phone] Kadi Tomlin MD 230 [place], [place] [phone] Social History Tobacco Use Types Packs/Day Years [...] documented as of this encounter Care Teams Chef De Partie Relationship Specialty Start Date End Date Kadi Tomlin MD 230 [place], [place] [phone] PCP - General Family Medicine 05/21/21 documented as of this encounter
--- OUTSIDE RECORDS SUMMARY | 2025-01-03 14:37 | XMS_ITS | Clinical Summary ---
Author Organization [facility] Address [address] [place] [address] Care Team Providers Care Bi Tester Name Role Phone Unavailable Primary Care Provider [...] 2012 Fecal DNA 2012 Flexible Sigmoidoscopy 2012 [id number]-66 ( season) 2024 05/05/2022, 11/18/2021, 05/29/2021, Additional [...] Discontinued Vaginal Pap Discontinued Vulvoscopy Discontinued [place]
--- OUTSIDE RECORDS SUMMARY | 2025-01-03 14:37 | XMS_ITS | Clinical Summary ---
Author Organization [employer] Address [address] [facility] 7[address] [place] [address] Care Team Providers Care Soft Sugar Operator Head Name Role Phone Kadi Tomlin MD Primary Care Provider [phone] Allergies No known active allergies Medications * [...] and is unsure about med delivery from [facility] ([facility] [place]) as well as where her meds are [...] BP remains uncontrolled - reviewed stroke and MN symptoms, to ER/EMS if those symptoms occur [...] She is still awaiting first appointment at [facility] agency, and I have urged her to call them to F/U. Since I will be retiring, patient will be transferred to new [facility] psychiatric prescriber. Pt is aware that these will be televisits and that the provider will not be an employee of [facility]. She gives permission to share PHI. Any issues or concerns, contact [facility]. All her questions were answered and [...] for serotonin syndrome. Awaiting first appointment at [facility] agency. On 07/20/2023 provider informed pt that [...] now staying with mother. Will refer for [facility] support. Still doing OK with medications. [...] Department Care Team Description 01/02/2025 Patient Outreach [facility] [address] [place] [phone] Kadi Tomlin MD Care Coordination (C3/CM F/U) 12/29/2024 Telephone [facility] [address] [place] [address] Kadi Tomlin MD No Show 12/28/2024 Patient Outreach [facility] [address] [place] [address] Kadi Tomlin MD Care Coordination (C3/CM Appt reminder) 12/26/2024 Telephone [facility] [address] [place] [address] Kadi Tomlin MD Nurse Triage 12/23/2024 9:00 AM EDT Office Visit [facility] [address] [place] [address] Rossy Clements, OD Presbyopia (Primary Dx) 12/16/2024 Patient Outreach [facility] [address] [place] [address] Kadi Tomlin MD Care Coordiantion (Outreach) 12/15/2024 Refill [facility] [address] [place] [address] Kadi Tomlin MD 12/02/2024 [facility] (C3) Department [address] [place] [phone] Provider, Population Health [facility] 12/02/2024 Patient Outreach [facility] [address] [place] [address] Kadi Tomlin MD Care Coordination (Outreach) 12/02/2024 Anticoagulation - Warfarin Visit [facility] [address] [place] [address] Indira Vallejo RN 11/30/2024 Refill [facility] [address] [place] [address] Kadi Tomlin MD Benign hypertension 11/28/2024 Refill [facility] [address] [place] [address] Kadi Tomlin MD Depressive disorder 11/17/2024 Patient Outreach [facility] [address] [place] [address] Kadi Tomlin MD Care Coordination (Outreach) 11/15/[address] [address] Kadi Tomlin MD Results 11/04/2024 3:30 PM EST Procedure Visit [address] [address] Kadi Tomlin MD Screening for cervical cancer (Primary Dx); Depressive disorder; Encounter for screening mammogram for malignant neoplasm of breast 11/04/2024 Orders Only [address] [address] Kadi Tomlin MD 11/04/2024 Travel 11/04/2024 Telephone [facility] [address] [place] [address] Kadi Tomlin MD Care Coordination ([facility] initial assessment/ enrollment) 11/03/2024 Orders Only [address] [address] Tracey Desai MD 11/03/[address] [address] Myesha Ellington MD No Show 11/02/2024 Patient Outreach [facility] [address] [place] [address] Kadi Tomlin MD Care Coordination (Outreach) 10/30/2024 Refill [facility] [address] [place] [address] Kadi Tomlin MD 10/28/2024 Patient Outreach [facility] [address] [place] [address] Kadi Tomlin MD Care Coordination (Outreach) 10/24/[address] [address] Kadi Tomlin MD Transition Of Care (Tcm) (HDF- scheduled and SDOH screening will need to be complete it in office) 10/20/2024 Orders Only [facility] External Provider, [facility] 10/17/2024 Refill [facility] [address] [place] [address] Kadi Tomlin MD Benign hypertension 10/11/2024 Refill [facility] [address] [place] [address] Tushar Nickerson MD from Last 3 Months [...] AM EST) HPV High Risk Positive(A) Negative [facility] HPV Genotype 16 Negative Negative [facility] HPV Genotype 18 Negative Negative [facility] Comment:HPV testing performe d at [facility] (CLIA#[id number]), [address] [place] [phone].Testing for HPV was performed using the Rivera [...] MD LAB BLOOD ORDERABLES Final Res ult [facility] [address] [place] [address] [phone] * Pap Smear (11/04/2024 12:00 AM EST) 11/04/2024 11/08/2024 8:4 5 AM EST Narrative [facility] - 11/11/2024 4:30 PM EST ----- ------- Name: Danika Morales ?Age/Sex: 59/F ? : 1965 Unit#: [id number] ?? Attend Dr: Kadi Tomlin ?Re11/04/24 ?Status: DEP REF ? Location: HO.HHCLNP ? Disch: ? ----- ------- SPEC : [id number] ? RECD: 11/08/24-844 ? STATUS: ??SOUT ? REQ NUM: [id number] ? MARY: 11/04/24-0000 ? SUBM DR: Kadi [...] Tomlin MD LAB CYTOLOGY ORDERABLES Final Result [facility] [address] [place] [address] [phone] * XR Chest 1 View (10/20/2024 4:49 PM EST) Anatomical Region Laterality Modality Chest Radiographic Shyla ging 10/20/2024 4:49 PM EST Narrative 10/20/2024 4:51 PM EST ? [facility] ?[address] ?[place] [address] ?XRay Report ? Signed ? Patient: Danika Morales ?MR#: [id number] ?? 2 ? : 1965 ?Acct:[id number] ? Age/Sex: 59 / F ?ADM Date: 10/20/24 ? Loc: HO.ED ? Attending Dr: ? Ordering Physician: Ghassan Hernandez MD ?? Date of Service: 10/20/24 ?? Procedure(s): XR chest 1V ?? Accession Number(s): [id number] ? cc: Ghassan Hernandez MD; Kadi Tomlin [...] DD/ 1649 ? TD/TT: 10/20/25 1649 ? Esthetician Makeup Artist: ? Procedure Note Donotuseinterpreter, Image - 10/20/[address] [address] XRay Report Signed Patient: Koby Morales#: [id number] 2 : 1965Acct:[id number] Age/Sex: 59 / FADM Date: 10/20/24 Loc: HO.ED Attending Dr: Ordering Physician: Ghassan Hernandez MD Date of Service: 10/20/24 Procedure(s): XR chest 1V Accession Number(s): [id number] cc: Ghassan Hernandez MD; Kadi Tomlin CLINICAL [...] 10/20/24 1651 DD/ 1649 TD/TT: 10/20/24 164 Esthetician Makeup Artist: [facility] External Provider IMG XR PROCEDURES Final Result * Urinalysis, Complete, with Reflex to Culture (10/20/2024 4:11 PM EST) Color Urine Yellow [facility] Appearance Urine Clear [facility] PH 6.0 5.0 - 9.0 [facility] Glucose Urine UA Negative Negative mg/dL [facility] Urine Blood Negative Negative [facility] Specific [place] - Urine 1.015 1.005 - 1.025 [facility] Urine Protein Negative Neg-Trace mg/dL [facility] Urine Ketones Negative Negative mg/dL [facility] Nitrite Urine Negative Negative [facility] Leukocyte Esterase Urine Negative Negative [facility] RBC Urine 0-2 0 - 2 /HPF [facility] Urine WBC 0-5 0 - 5 /HPF [facility] Urine Squamous Epithelial Cell 0-2 0 - 2 /HPF [facility] Urine Bacteria None Seen None Seen [facility] Hyaline Casts, Urine 0-2 0 - 2 /LPF [facility] 10/20/2024 4:11 PM EST 10/20/2024 4:13 PM EST Narrative [facility] - 10/20/2024 4:28 PM EST [id number], Clean C[employer] us Generic External Data Provider LAB URINE ORDERAB LES Final Result [facility] [address] [place] [address] [phone] * (ABNORMAL) Drug Monitoring, Panel 1, Screen, Urine (10/20/2024 4:11 PM EST) Opiate Screen Urine Not Detected Not Detect [facility] Comment:Opiate cut-off is 30 0 ng/mL.Positive results are unconfirmed and should not be used fornon-medical purposes. Barbiturates, Urine Not Detected Not Detect [facility] Comment:Barbiturate cut-off is 200 ng/mL.Positive results are unconfirmed and should not be used fornon-medical purposes. Phencyclidine Screen Urine Not Detected Not Detect [facility] Comment:Phencyclidine cut-of f is 25 ng/mL.Positive results are unconfirmed and should not be used fornon-medical purposes. Amphetamine Screen Urine Not Detected Not Detect [facility] Comment:Amphetamine cut-off is 1000 ng/mL.Positive results are unconfirmed and should not be used fornon-medical purposes. Benzodiazepines Screen Urine POSITIVE(A) Not Detect [facility] Comment:Benzodiazepine cut-o ff is 200 ng/mL.Positive results are unconfirmed and should not be used fornon-medical purposes. Cocaine Screen Urine POSITIVE(A) Not Detect [facility] Comment:Cocaine cut-off is 3 00 ng/mL.Positive results are unconfirmed and should not be used fornon-medical purposes. Cannabinoid Screen Urine Not Detected Not Detect [facility] Comment:Cannabinoid cut-off is 50 ng/mL.Positive results are unconfirmed and should not be used fornon-medical purposes. Methadone Screen, Urine Not Detected Not Detect ng/mL [facility] Comment:Methadone cut-off is 300 ng/mL.Positive results are unconfirmed and should not be used fornon-medical purposes. FENTANYL URINE Not Detected Not Detect [facility] Comment:Fentanyl cut-off is 1 ng/mL.Positive results are unconfirmed and should not be used fornon-medical purposes. Oxycodone Urine Screen Not Detected Not Detect ng/mL [facility] Comment:Oxycodone cut-off is 100 ng/mL.Positive results are unconfirmed and should not be used fornon-medical purposes. Buprenorphine Screen Not Detected Not Detect ng/mL [facility] Comment:Buprenorphine cut-of f is 5 ng/mL.Positive results are unconfirmed and should not be used fornon-medical purposes. 10/20/2024 4:11 PM EST 10/20/2024 4:13 PM EST us Generic External Data Provider LAB URINE ORDERAB LES Final Result Performing Organization Address City/State/[place] Co de Phone Number [facility] [address] [place] [phone] * VENOUS BLOOD GAS (10/20/2024 3:55 PM EST) VBG pH 7.42 7.32 - 7.43 [facility] Comment:METER #: [id number] VBG PCO2 40 mmHg [facility] Comment:METER #: [id number] VBG PO2 61 mmHg [facility] Comment:METER #: [id number] VBG Base Excess 1.8 mmol/L [facility] Comment:METER #: [id number] VBG HCO3 26 22 - 26 mmol/L [facility] Comment:METER #: [id number] O2 Sat, Nacho 90.0 % [facility] Comment:METER #: [id number] 10/20/2024 3:55 PM EST 10/20/2024 4:01 PM EST Generic External Data Provider LAB BLOOD ORDERAB LES Final Result Performing Organization Address [facility]/[place] Co va Phone Number [facility] [address] [place] [phone] * Acetaminophen level (10/20/2024 3:51 PM EST) Acetaminophen LAB <3 <30 mcg/mL [facility] 10/20/2024 3:51 PM EST 10/20/2024 3:54 PM EST Generic External Data Provider LAB BLOOD ORDERAB LES Final Result Performing Organization Address [facility] Phone Number [facility] [address] [place] [phone] * (ABNORMAL) Salicylate (10/20/2024 3:51 PM EST) Salicylate <5.0(L) 15 - 30 mg/dL [facility] 10/20/2024 3:51 PM EST 10/20/2024 3:54 PM EST Generic External Data Provider LAB BLOOD ORDERAB LES Final Result Performing Organization Address [facility] Phone Number [facility] [address] [place] [phone] * High Sensitivity Troponin I (10/20/2024 12:07 PM EST) TROPONIN I HIGH SENSITIVITY <2.7 <3.5 - 17.0 ng/L [facility] Comment:The [place] high sens itivity Troponin-I results should beused in conjunction with other diagnostic information suchas ECG, clinical observations and information, and patientsymptoms to aid in the diagnosis of MN. 10/20/2024 12:0 7 PM EST 10/20/2024 12:13 PM EST us Generic External Data Provider LAB BLOOD ORDERAB LES Final Result Performing Organization Address [facility]/ZIP Co de Phone Number [facility] [address] [place] [phone] * Ethanol (10/20/2024 12:07 PM EST) ETHANOL (MG/DL) IN SER/PLAS <10 mg/dL [facility] Comment:Serum/plasma ethanol results are to be used formedical/treatment purposes only. 10/20/2024 12:0 7 PM EST 10/20/2024 12:13 PM EST Generic External Data Provider LAB BLOOD ORDERAB LES Final Result Performing Organization Address [facility]/[place] Co de Phone Number [facility] [address] [place] [phone] * SARS-CoV-2 RNA, Influenza A/B, and RSV RNA, Ql NAAT (10/20/2024 12:07 PM EST) Pathologist [facility] Influenza A PCR NEGATIVE Negative [facility] Influenza B PCR NEGATIVE Negative [facility] Resp Syncy Virus RNA Qual PCR NEGATIVE Negative [facility] SARS COV2 PCR NEGATIVE Negative [facility] Comment:All test results mus t [...] use by authorized laboratories.Testing performed on the [email or web address] GeneXpert utilizingreal-time RT-PCR.All SARS CoV2 and positive influenza A/B results arereported to [facility]. 10/20/2024 12:0 7 PM EST 10/20/2024 12:13 PM EST us Generic External Data Provider LAB MICROBIOLOGY - GENERAL ORDERABLES Final Result [facility] [address] [place] [phone] * (ABNORMAL) CBC auto differential (10/20/2024 12:07 PM EST) White Blood Count 13.3(H) 4.8 - 10.8 X10*3/uL [facility] Red Blood Count 3.78(L) 4.20 - 5.50 X10*6/uL [facility] Hemoglobin 9.8(L) 12.0 - 16.0 g/dl [facility] Hematocrit 31.6(L) 37.0 - 47.0 % [facility] Mean Corpuscular Volume 83.6 80.0 - 98.0 fL [facility] Mean Corpuscular Hemoglobin 25.9(L) 27.0 - 33.0 pg [facility] Mean Corpuscular HGB Conc 31.0 31.0 - 35.0 g/dl [facility] Red Cell Distribution Width 15.7 11.0 - 16.0 % [facility] Platelet Count 268 160 - 400 X10*3/uL [facility] Mean Platelet Volume 10.0 9.4 - 12.3 fL [facility] Neutrophils Percent Auto 81.9(H) 45 - 73 % [facility] Imm Gran Pct Auto 0.5(H) 0.0 - 0.4 % [facility] Lymphocytes Percent Auto 11.2(L) 20 - 40 % [facility] Monocytes Percent Auto 4.2 2 - 11 % [facility] Eosinophils Percent Auto 1.9 0 - 4 % [facility] Basophils Percent Auto 0.3 0 - 2 % [facility] NRBC Pct Auto 0.0 0.0 - 0.2 /100WBC [facility] Neutrophils Absolute Auto 10.9(H) 2.0 - 8.3 x10*3/uL [facility] Imm Gran Abs Auto 0.06(H) 0.00 - 0.03 X10*3/uL [facility] Lymphocytes Absolute Auto 1.5 1.2 - 4.9 X10*3/uL [facility] Monocytes Absolute Auto 0.6 0.1 - 1.2 X10*3/uL [facility] Eosinophils Absolute Auto 0.3 0.0 - 0.4 X10*3/uL [facility] Basophils Absolute Auto 0.0 0.0 - 0.2 X10*3/uL [facility] NRBC Abs Auto 0.000 0.0 - 0.012 X10*3/uL [facility] 10/20/2024 12:0 7 PM EST 10/20/2024 12:13 PM EST us Generic External Data Provider LAB BLOOD ORDERAB LES Final Result Performing Organization Address [facility] de Phone Number [facility] [address] [place] [phone] * Prothrombin Time-INR (10/20/2024 12:07 PM EST) Prothrombin Time 11.4 10.9 - 12.4 SEC [facility] INTERNATIONAL NORM RATIO 1.0 0.9 - 1.1 [facility] Comment:INTERNATIONAL NORMAL IZED RATIO (INR) [...] ORDERAB LES Final Result Performing Organization Address [facility]/ZIP Co de Phone Number [facility] [address] [place] [phone] * Lipase (10/20/2024 12:07 PM EST) Lipase 13 8 - 78 U/L [facility] 10/20/2024 12:0 7 PM EST 10/20/2024 12:13 PM EST us Generic External Data Provider LAB BLOOD ORDERAB LES Final Result Performing Organization Address [facility]/[place] Co de Phone Number [facility] [address] [place] [phone] * Creatine Kinase, Total (10/20/2024 12:07 PM EST) Pathologist [facility] Creatine Kinase Total 105 26 - 140 U/L [facility] 10/20/2024 12:0 7 PM EST 10/20/2024 12:13 PM EST us Generic External Data Provider LAB BLOOD ORDERAB LES Final Result Performing Organization Address [facility]/[place] Co de Phone Number [facility] [address] [place] [phone] * Ammonia, Plasma (10/20/2024 12:07 PM EST) Pathologist [facility] Ammonia (P) 29 13 - 55 umol/L [facility] 10/20/2024 12:0 7 PM EST 10/20/2024 12:13 PM EST us Generic External Data Provider LAB BLOOD ORDERAB LES Final Result Performing Organization Address [facility]/[place] Co de Phone Number [facility] [address] [place] [phone] * (ABNORMAL) Comprehensive Metabolic Panel (10/20/2024 12:07 PM EST) Pathologist [facility] Sodium 142 135 - 145 mmol/L [facility] Potassium 4.0 3.3 - 5.1 mmol/L [facility] Chloride 109(H) 96 - 108 mmol/L [facility] Carbon Dioxide 26 22 - 29 mmol/L [facility] Anion Gap 11(L) 12 - 20 [facility] Urea Nitrogen (BUN) 13 9 - 16 mg/dL [facility] Creatinine, Serum 0.70 0.5 - 1.4 mg/dL [facility] Creatinine Clr Calc Pharmacy 84.6 [facility] Comment:Provided height and weight: 160.02 cm,72.575 kg.eGFR (calculated from the MDRD study equation) and eCrCl(calculated from the Cockcroft-Gault equation) are based ondifferent parameters and may not yield comparable results.If eCrCl result is absurd, please check patient'sheight/weight. Estimated Glomerular Filt Rate >60 [facility] Comment:Chronic Kidney Disea se: Estimated GFR < 60 mL/min/1.73w5Vsatgy Kidney Disease: Estimated GFR < 15 mL/min/1.73m2 Glucose 98 60 - 115 mg/dL [facility] Calcium 9.6 8.4 - 10.2 mg/dL [facility] Bilirubin, Total 0.2 0.0 - 1.0 mg/dL [facility] Aspartate Amino Transferase 27 5 - 31 U/L [facility] Alanine Aminotransferase 23 0 - 31 U/L [facility] Total Protein 7.5 6.5 - 8.0 g/dL [facility] Albumin Level 3.8 3.5 - 5.0 g/dL [facility] Alkaline Phosphatase 115 39 - 117 U/L [facility] 10/20/2024 12:0 7 PM EST 10/20/2024 12:13 PM EST us Generic External Data Provider LAB BLOOD ORDERAB LES Final Result [facility] [address] [place] [phone] * CT Head w/o Contrast (10/20/2024 11:08 AM EST) Anatomical Region Laterality Modality Head, Neck Computed Tomogra phy 10/20/2024 11:0 8 AM EST Narrative 10/20/2024 12:07 PM EST ? [facility] ?[address] ?[place] [address] ? CT Scan Report ? Signed ? Patient: Andrew,Danika ?MR#: [id number] ?? 2 ? : 1965 ?Acct:[id number] ? Age/Sex: 59 / F ?ADM Date: 10/20/24 ? Loc: HO.ED ? Attending Dr: ? Ordering Physician: Barrett Chavira ?? Date of Service: 10/20/24 ?? Procedure(s): CT head/brain wo IV con ?? Accession Number(s): [id number] ? cc: Kadi Tomlin; Barrett Chavira ? Report Number: ?? [id number]: Total DLP = ??667.00 mGy-cm ?? EXAMINATION: [...] DD/ 1108 ? TD/TT: 10/20/24 1144 ? Esthetician Makeup Artist: ? Procedure Note Maru Chahal - 10/20/[address] [place] [address] [address] Scan Report Signed Patient: Koby Morales#: [id number] 2 : 1965Acct:[id number] Age/Sex: 59 / FADM Date: 10/20/24 Loc: HO.ED Attending Dr: Ordering Physician: Barrett Chavira Date of Service: 10/20/24 Procedure(s): CT head/brain wo IV con Accession Number(s): [id number] cc: Rogelio Tomlin Daniel Report Number: [id number]: Total DLP = 667.00 mGy-cm EXAMINATION: CT [...] 10/20/24 1204 DD/ 1108 TD/TT: 10/20/24 1144 Esthetician Makeup Artist: [facility] External Provider IMG CT PROCEDURES Final Result * Hm Colonoscopy (06/09/2024 11:24 AM EDT) Historical Provider HEALTH MAINTENANCE Final Result * BI Mammogram Screening Tomosynthesis Bilateral (07/14/2023 3:15 PM EDT) Anatomical Region Laterality Modality Breast Bilateral Mammography 07/14/2023 3:15 PM EDT Narrative 08/01/2023 1:28 PM EST ? [facility] ? [address] ?[place] [address] ? Mammography Report ? Signed ? Patient: Andrew,Danika ?MR#: [id number] ?? 2 ? : 1965 ?Acct:[id number] ? Age/Sex: 57 / F ?ADM Date: 10/24/23 ? Loc: HO.MAMMO ? Attending Dr: Kadi Tomlin MD ? Ordering Physician: Kadi Tomlin ?Results: 1Negative ? Date of Service: 07/14/23 ?Follow Up: 1 Year From Orig ?? inal Mammogram ? Procedure(s): MM tomosynthesis screening BI ?? Accession Number(s): [id number] ? cc: Kadi Tomlin ? EXAMINATION: ?? [...] 1324 ? DD/ 1515 ? TD/TT: ? Esthetician Makeup Artist: ? Procedure Note Donotuseinterpreter, Image - 08/01/2023 [facility] [address] [place] [address] Mammography Report Signed Patient: Koby Morales#: [id number] 2 : 1965Acct:[id number] Age/Sex: 57 / FADM Date: 07/14/23 Loc: PARISA Attending Dr: Kadi Tomlin MD Ordering Physician: Khadar Tomlinults: 1Negative Date of Service: 07/14/23Follow Up: 1 Year From Orig inal Mammogram Procedure(s): MM tomosynthesis screening BI Accession Number(s): [id number] cc: Kadi Tomlin EXAMINATION: MM SCREENING DIGITAL [...] in OV> 08/01/23 1324 DD/ 1515 TD/TT: Esthetician Makeup Artist: Kadi Tomlin MD IMG BI PROCEDURES Edited [...] ? For additional information please refer to http://MathZee.zuuka!.Ambarella/faq/AUO569 (This link is being provided for informational/ [...] ? For additional information please refer to http://MathZee.Calvin/faq/XLM605 (This link is being provided for informational/ educational purposes only.) ? The performance of this assay has not been clinically validated in patients less than 2 years old. ?? 08/21/2020 11:3 1 AM EST us Shantelle Adame MD LAB BLOOD ORDERABLES Final Re sult [facility] [address] * (ABNORMAL) LIPID PANEL, STANDARD (08/21/2020 [...] ?? Alistair DELAROSA et al. CANDI. 2013;310(19): 8343-5670 ?? (http://education.[employer]/faq/CFB081) Non-HDL Cholesterol 168(H) <130 mg/dL (calc) [facility] [...] ?? Alistair DELAROSA et al. CANDI. 2013;310(19): 8471-6911 ?? (http://MathZee.[employer]/faq/SKW780) Non-HDL Cholesterol 168(H) <130 mg/dL (calc) [facility] [...] ?? Alistair DELAROSA et al. CANDI. 2013;310(19): 9462-9289 ?? (http://Rootstock Software/faq/HQM602) Non-HDL Cholesterol 168(H) <130 mg/dL (calc) [facility] Comment: For patients with diabetes plus 1 major ASCVD risk ?? factor, treating to a non-HDL-C goal of <100 mg/dL ?? (LDL-C of <70 mg/dL) is considered a therapeutic ?? option. Triglycerides 156(H) <150 mg/dL [facility] 08/21/2020 11:3 1 AM EST us Shantelle Adame MD LAB BLOOD ORDERABLES Final Re sult [facility] [address] from Last 3 Months or Most Recently Relevant to Health Maintenance Insurance [employer] C3 Care Teams Soft Sugar Operator Head Relationship Specialty Start Date End Date Kadi Tomlin MD 230 [facility] [place] [id number] PCP - General Family Medicine 05/21/21
--- OUTSIDE RECORDS SUMMARY | 2025-01-03 14:37 | XMS_ITS | Encounter Summary ---
Author Organization [email or web address] Address [address] [facility] 7t [place] [address] Care Team Providers Care Barley Steeper Name Role Phone Kadi Tomlin MD Primary Care Provider [phone] Reason for Visit * Reason Onset Date Comments No Show 12/29/2024 Encounter Details Date Type Department Care Team ([facility] st Contact Info) Description 12/29/2024 Telephone [facility] [address] [place], [place] [phone] Kadi Tomlin MD 230 [place] [address] No Show Social History Tobacco Use Types [...] documented as of this encounter Care Teams Barley Steeper Relationship Specialty Start Date End Date Kadi Tomlin MD [address] [place] [address] PCP - General Family Medicine 05/21/21 documented as of this encounter
--- OUTSIDE RECORDS SUMMARY | 2025-01-03 14:37 | XMS_ITS | Encounter Summary ---
Author Organization [employer] Address [address] [facility] [address] 7t [place] [address] Care Team Providers Care Retail Pharmacy Manager Name Role Phone Kadi Tomlin MD Primary Care Provider [phone] Encounter Details Date Type Department Care Team (Late st Contact Info) Description 08/17/2023 Abstract [facility] MEDICINE 230 [place], [place] [phone] Denisse Castillo Social History Tobacco Use Types [...] documented as of this encounter Care Teams Retail Pharmacy Manager Relationship Specialty Start Date End Date Kadi Tomlin MD 230 [place] [address] PCP - General Family Medicine 05/21/21 documented as of this encounter
--- OUTSIDE RECORDS SUMMARY | 2025-01-03 14:37 | XMS_ITS | Encounter Summary ---
Author Organization [employer] Address [address] [facility] 7t [place] [address] Care Team Providers Care Felt Puller Name Role Phone Kadi Tomlin MD Primary Care Provider [phone] Encounter Details Date Type Department Care Team (Late st Contact Info) Description 05/28/2023 Orders Only [facility] MEDICINE [address] [place], [place] [phone] Provider, MD Tracey Social History Tobacco Use [...] documented as of this encounter Care Teams Felt Puller Relationship Specialty Start Date End Date Kadi Tomlin MD [address] [place] [address] PCP - General Family Medicine 05/21/21 documented as of this encounter
--- OUTSIDE RECORDS SUMMARY | 2025-01-03 14:37 | XMS_ITS | Encounter Summary ---
Author Organization [employer] Address [address] [facility] 7t [place] [address] Care Team Providers Care Industrial Gas Service Helper Name Role Phone Kadi Tomlin MD Primary Care Provider [phone] Encounter Details Date Type Department Care Team (Late st Contact Info) Description 11/28/2022 Orders Only [facility] MEDICINE 230 [place], [place] [phone] Kadi Tomlin MD [address] [place], [place] [phone] Other hyperlipidemia (Primary Dx); Pain of lower [...] EDT Narrative 12/17/2022 8:44 AM EDT ? [facility] [employer] [facility] [employer] ?[address] ?[place] [address] ?XRay Report ? Signed ? Patient: Danika Morales ?MR#: [id number] ?? 2 ? : 1965 ?Acct:[id number] ? Age/Sex: 57 / F ?ADM Date: 12/10/22 ? Loc: HO.XRAY ? Attending Dr: Kadi Tomlin MD ? Ordering Physician: Kadi Tomlin ?? Date of Service: 12/10/22 ?? Procedure(s): XR wrist LT min 3V ?? Accession Number(s): [id number] ? cc: Kadi Tomlin ? EXAMINATION: ?? [...] 0841 ? DD/ 1048 ? TD/TT: ? Frozen Pie Maker: MSM ? Procedure Note Donfaustinater, Image - 01/05/2023 [place] [address] XRay Report Signed Patient: Koby Morales#: [id number] 2 : 1965Acct:[id number] Age/Sex: 57 / FADM Date: 12/10/22 Loc: HO.GLADIS Attending Dr: Kadi Tomlin MD Ordering Physician: Kadi Tomlin Date of Service: 12/10/22 Procedure(s): XR wrist LT min 3V Accession Number(s): [id number] cc: Kadi Tomlin EXAMINATION: XR ELBOW, LEFT [...] in OV> 12/17/22 0841 DD/ 1048 TD/TT: Frozen Pie Maker: BLANCA [facility] External Provider IMG XR PROCEDURES Final Result * XR Elbow 1-2 Views Left (12/10/2022 10:48 AM EDT) Anatomical Region Laterality Modality Upper Extremities, Elbow Left Radiogr aphic Imaging 12/10/2022 10:4 8 AM EDT Narrative 12/17/2022 8:44 AM EDT ? [employer] [employer] ?[address] ?[place] [address] ?XRay Report ? Signed ? Patient: Andrew,Danika ?MR#: [id number] ?? 2 ? : 1965 ?Acct:[id number] ? Age/Sex: 57 / F ?ADM Date: 12/10/22 ? Loc: HO.XRAY ? Attending Dr: Kadi Tomlin MD ? Ordering Physician: Kadi Tomlin ?? Date of Service: 12/10/22 ?? Procedure(s): XR elbow LT 2V ?? Accession Number(s): [id number] ? cc: Kadi Tomlin ? EXAMINATION: ?? [...] 0841 ? DD/ 1048 ? TD/TT: ? Frozen Pie Maker: BLANCA ? Procedure Note Donfaustinater, Image - 12/17/[address] [address] XRay Report Signed Patient: Koby Morales#: [id number] 2 : 1965Acct:[id number] Age/Sex: 57 / FADM Date: 12/10/22 Loc: HO.GLADIS Attending Dr: Kadi Tomlin MD Ordering Physician: Kadi Tomlin Date of Service: 12/10/22 Procedure(s): XR elbow LT 2V Accession Number(s): [id number] cc: Kadi Tomlin EXAMINATION: XR ELBOW, LEFT [...] in OV> 12/17/22 0841 DD/ 1048 TD/TT: Frozen Pie Maker: BLANCA [facility] External Provider IMG XR PROCEDURES Final Result * XR Shoulder 2+ Views Left (12/10/2022 10:48 AM EDT) Anatomical Region Laterality Modality Upper Extremities, Shoulder Left Radi ographic Imaging 12/10/2022 10:4 8 AM EDT Narrative 12/17/2022 8:44 AM EDT ? [facility] [employer] [facility] [employer] ?[address] ?[place] [address] ?XRay Report ? Signed ? Patient: Andrew,Danika ?MR#: [id number] ?? 2 ? : 1965 ?Acct:[id number] ? Age/Sex: 57 / F ?ADM Date: 12/10/22 ? Loc: HO.XRAY ? Attending Dr: Kadi Tomlin MD ? Ordering Physician: Kadi Tomlin ?? Date of Service: 12/10/22 ?? Procedure(s): XR shoulder LT min 2V ?? Accession Number(s): [id number] ? cc: Kadi Tomlin ? EXAMINATION: ?? [...] 0841 ? DD/DT: //8 ? TD/TT: ? Frozen Pie Maker: MSM ? Procedure Note Fela, Image - 12/17/[address] [address] XRay Report Signed Patient: Koby Morales#: [id number] 2 : 1965Acct:[id number] Age/Sex: 57 / FADM Date: 12/10/22 Loc: HO.XRAY Attending Dr: Kadi Tomlin MD Ordering Physician: Kadi Tomlin Date of Service: 12/10/22 Procedure(s): XR shoulder LT min 2V Accession Number(s): [id number] cc: Kadi Tomlin EXAMINATION: XR ELBOW, LEFT [...] in OV> 12/17/22 0841 DD/ 1048 TD/TT: Frozen Pie Maker: BLANCA [facility] External Provider IMG XR PROCEDURES Final Result documented in this encounter Visit Diagnoses Diagnosis Other hyperlipidemia- Primary Pain of lower extremity, unspecified laterality documented in this encounter Additional Health Concerns Assessment Noted Time PHQ-9 Depression Total Score: 7 11/11/19 23 8:54 AM EST documented as of this encounter Care Teams Industrial Gas Service Helper Relationship Specialty Start Date End Date Kadi Tomlin MD [address] [place] [address] PCP - General Family Medicine 05/21/21 documented as of this encounter
--- OUTSIDE RECORDS SUMMARY | 2025-01-03 14:37 | XMS_ITS | Encounter Summary ---
Author Organization [employer] Address [address] [place] [address] 7t [place] [address] Care Team Providers Care Construction Materials Tester Name Role Phone Kadi Tomlin MD Primary Care Provider [phone] Reason for Visit * Reason Onset Date Comments Appointment Request 12/25/2022 Encounter Details Date Type Department Care Team ([facility] st Contact Info) Description 12/25/2022 Telephone [facility] MEDICINE 230 [place], [place] [phone] Kadi Tomlin MD 230 [place], [place] [phone] Appointment Request Social History Tobacco Use Types [...] schedule an appt Please contact pt at [phone] documented in this encounter Plan of Treatment Not on file documented as of this encounter Visit Diagnoses Not on filedocumented in this encounter Additional Health Concerns Assessment Noted Time PHQ-9 Depression Total Score: 7 11/11/19 23 8:54 AM EST documented as of this encounter Care Teams Construction Materials Tester Relationship Specialty Start Date End Date Kaid Tomlin MD [address] [place] [address] PCP - General Family Medicine 05/21/21 documented as of this encounter
--- OUTSIDE RECORDS SUMMARY | 2025-01-03 14:37 | XMS_ITS | Encounter Summary ---
Author Organization [employer] Address 75 [facility] 7t [place] [address] Care Team Providers Care Chairman President And Chief Executive Officer Name Role Phone Kadi Tomlin MD Primary Care Provider [phone] Reason for Visit * Reason Onset Date Comments Nurse Triage 04/05/2024 Encounter Details Date Type Department Care Team ([facility] st Contact Info) Description 04/05/2024 Telephone [facility] MEDICINE 230 [place], [place] [phone] Kadi Tomlin MD 230 [place], [place] [phone] Nurse Triage Social History Tobacco Use Types [...] 04/05/2024 12:14 PM EDT Triage call with [employer] [place] [id number] Pt reports low blood pressure of 106/80 [...] fordays. Pt is advised to come to [facility] today to be seen by provider [...] accepted this outcome Please contact pt @ Faroese Speaker documented in this encounter Plan of Treatment Not on file documented as of this encounter Visit Diagnoses Not on filedocumented in this encounter Additional Health Concerns Assessment Noted Time PHQ-9 Depression Total Score: 15 024 9:17 AM EDT documented as of this encounter Care Teams Chairman President And Chief Executive Officer Relationship Specialty Start Date End Date Kadi Tomlin MD 230 [place] [address] PCP - General Family Medicine 05/21/21 documented as of this encounter
--- OUTSIDE RECORDS SUMMARY | 2025-01-03 14:37 | XMS_ITS | Encounter Summary ---
Author Organization [employer] Address [address] [facility] 7t [place] [address] Care Team Providers Care Principal Technical Specialist Name Role Phone Kadi Tomlin MD Primary Care Provider [phone] Reason for Visit * Reason Onset Date Comments Appointment Request 03/27/2023 Encounter Details Date Type Department Care Team ([facility] st Contact Info) Description 03/27/2023 Telephone [facility] MEDICINE 230 [place], [place] [phone] Kadi Tomlin MD 230 [place], [place] [phone] Appointment Request Social History Tobacco Use Types [...] with Enoc Boles. Please contact pt at [phone] documented in this encounter Plan of Treatment Not on file documented as of this encounter Visit Diagnoses Not on filedocumented in this encounter Additional Health Concerns Assessment Noted Time PHQ-9 Depression Total Score: 9 01/09/20 23 9:12 AM EDT documented as of this encounter Care Teams Principal Technical Specialist Relationship Specialty Start Date End Date Kadi Tomlin MD 230 [place] [address] PCP - General Family Medicine 05/21/21 documented as of this encounter
--- OUTSIDE RECORDS SUMMARY | 2025-01-03 14:37 | XMS_ITS | Encounter Summary ---
Author Organization [employer] Address [address] [place] [address] 7t [place] [address] Care Team Providers Care Technical Education Teacher Name Role Phone Kadi Tomlin MD Primary Care Provider [phone] Reason for Visit * Reason Comments Med Refill Encounter Details Date Type Department Care Team (Late st Contact Info) Description 03/25/2023 Refill [facility]S [address] [place], [place] [phone] Enoc Boles FNP Depressive disorder Social History [...] documented as of this encounter Care Teams Technical Education Teacher Relationship Specialty Start Date End Date Kadi Tomlin MD 230 [facility] [place] [address] PCP - General Family Medicine 05/21/21 documented as of this encounter
--- OUTSIDE RECORDS SUMMARY | 2025-01-03 14:37 | XMS_ITS | Clinical Summary ---
Author Organization [facility] it[facility] Address [address] [place] [address] Care Team Providers Care Investment Executive Name Role Phone Unavailable Primary Care Provider [...]
== END 2025-01-03 11:28 | disposition home or self-care (01) ==
LOC: HO.HOSX 11:27
PROVIDERS: PCP General Practice; Visit Provider Physical Medicine & Rehabilitation
DX: M54.2 Cervicalgia (principal); R20.0 Anesthesia of skin; S46.811A Strain of other muscles, fascia and tendons at shoulder and upper arm level, right arm, initial encounter; S46.211A Strain of muscle, fascia and tendon of other parts of biceps, right arm, initial encounter
CPT/HCPCS: 72040; 73060; 99202

== ENCOUNTER → 2025-01-03 11:59 | Outpatient (BNV) | payer MEDICAID, SELFPAY | PROVIDERS: PCP General Practice; Visit Provider Radiology Diagnostic Radiology | DX: M54.2 Cervicalgia (principal) | CPT/HCPCS: 72040; 73060 ==

== ENCOUNTER 2025-01-30 13:31 | Outpatient (REF) | payer MEDICAID, SELFPAY ==
--- OUTSIDE RECORDS SUMMARY | 2025-01-30 13:50 | XMS_ITS | Encounter Summary ---
Author Organization [employer] Address 75 [facility] 7t [place] [address] Care Team Providers Care Sterile Processing Tech Name Role Phone Kadi Tomlin MD Primary Care Provider [phone] Reason for Visit * Reason Onset Date Comments Appointment Request 12/25/2022 Encounter Details Date Type Department Care Team ([facility] st Contact Info) Description 12/25/2022 Telephone [facility] MEDICINE 230 [place], [place] [phone] Kadi Tomlin MD 230 [place], [place] [phone] Appointment Request Social History Tobacco Use Types [...] schedule an appt Please contact pt at [phone] documented in this encounter Plan of Treatment Not on file documented as of this encounter Visit Diagnoses Not on filedocumented in this encounter Additional Health Concerns Assessment Noted Time PHQ-9 Depression Total Score: 7 11/11/19 23 8:54 AM EST documented as of this encounter Care Teams Sterile Processing Tech Relationship Specialty Start Date End Date Kadi Tomlin MD 230 [place] [address] PCP - General Family Medicine 05/21/21 documented as of this encounter
--- OUTSIDE RECORDS SUMMARY | 2025-01-30 13:50 | XMS_ITS | Clinical Summary ---
Author Organization [employer] Address [address] [facility] 7t [place] [address] Care Team Providers Care Slab Grinder Name Role Phone Kadi Tomlin MD Primary Care Provider [phone] Allergies No known active allergies Medications * This document contains information received from the source organization and may not represent a complete record from that organization. linaCLOtide (Linzess) 290 MCG capsule Take 1 capsule by mouth in the morning. Active lansoprazole (Prevacid) [address] capsuleIndication s:Gastroesophagea l reflux disease without esophagitis Take 1 capsule (30 mg) by mouth in the morning. 90 capsule 2 3 Active fluticasone (Flovent) 110 MCG/ACT inhalerIndication s:Moderate persistent asthma, unspecified whether complicated INHALE 2 PUFFS BY MOUTH EVERY 12 HOURS 36 g 3 3 Active loratadine (Claritin) 10 MG tabletIndications :Allergic rhinitis, unspecified seasonality, unspecified trigger TAKE 1 TABLET BY MOUTH EVERY DAY 90 tablet 3 4 Active propranolol (Inderal) 40 MG tablet Take 1 tablet (40 mg) by mouth 2 times daily. 180 tablet 3 4 Active Spacer/Aero-Holdi ng Chambers (OptiChamber Citlalli) misc 1 each every 4 (four) hours if needed (asthma). 1 each 4 Active acetaminophen (Arthritis Pain APAP) 650 MG ER tablet Take 1 tablet (650 mg) by mouth every 8 (eight) hours if needed for mild pain. Do not crush, chew, or split. 40 tablet 4 Active albuterol 108 (90 Base) MCG/ACT inhaler INHALE 2 PUFFS BY MOUTH EVERY FOURS IF NEEDED 18 g 6 4 Active lidocaine (Lidoderm) 5 % patch APPLY 1 PATCH TOPICALLY TO THE SKIN IN THE MORNING. LEAVE ON FOR 12 HOURS AND OFF FOR 12 HOURS as DIRECTED 30 patch 6 4 Active butalbital-acetam inophen-caffeine 50-325-40 MG tabletIndications :Chronic migraine without aura without status migrainosus, not intractable Take 1 tablet by mouth Once daily as needed for migraine (limit to 2 doses per week to avoid rebound headache) for up to 15 doses. 15 tablet 4 Active busPIRone (Buspar) 30 MG tabletIndications :Depressive disorder Take 1 tablet (30 mg) by mouth every 12 (twelve) hours if needed (anxiety). 180 tablet 2 4 Active cloNIDine (Catapres) 0.1 MG tabletIndications :Depressive disorder Take 1 tablet (0.1 mg) by mouth 2 times daily. 180 tablet 2 4 Active escitalopram (Lexapro) 10 MG tabletIndications :Depressive disorder TAKE 1 TABLET BY MOUTH IN THE MORNING 90 tablet 2 4 Active QUEtiapine (SEROquel) 50 MG tabletIndications :Depressive disorder Take 1 tablet (50 mg) by mouth 2 times daily. 180 tablet 2 4 Active QUEtiapine (SEROquel) 100 MG tabletIndications :Depressive disorder Take 1 tablet (100 mg) by mouth at bedtime. Also take Quetiapine 50 mg twice daily 90 tablet 2 4 Active atorvastatin (Lipitor) 40 MG tablet Take 1 tablet (40 mg) by mouth Once per day. 90 tablet 3 4 Active cholecalciferol (Vitamin D-3) 50 MCG (2000 UT) tabletIndications :Vitamin D deficiency Take 1 tablet by mouth daily 90 tablet 3 4 Active ibuprofen 400 MG tablet Take 1 tablet (400 mg) by mouth every 6 (six) hours if needed for moderate pain or fever for up to 30 doses. 20 tablet 4 Active SUMAtriptan (Imitrex) 100 MG tablet TAKE 1 TABLET BY MOUTH AT ONSET OF MIGRAINE. MAY REPEAT ONCE AFTER 2 HOURS IF NEEDED, DO NOT EXCEED 2 TABLETS / 24 HOURS 9 tablet 3 4 Active Diclofenac Sodium 1 % gel APPLY 4 GRAMS TOPICALLY 4 TIMES A DAY IN THE MORNING, AT NOON, IN THE EVENING, AND AT BEDTIME FOR PAIN 100 g 5 Active hydroCHLOROthiazi de (HYDRODiuril) 25 MG tabletIndications :Benign hypertension TAKE 1 TABLET BY MOUTH EVERY DAY 90 tablet 3 5 Active baclofen (Lioresal) 10 MG tablet TAKE 1 TABLET BY MOUTH THREE TIMES DAILY IN THE MORNING, AT NOON, AND AT BEDTIME NEEDED FOR MUSCLE SPASMS 60 tablet 1 5 Active zolpidem (Ambien) 5 MG tabletIndications :Depressive disorder Take 1 tablet (5 mg) by mouth if needed at bedtime for sleep. 30 tablet 5 5 Active NIFEdipine XL (Procardia XL) 30 MG 24 hr tablet TAKE 1 TABLET BY MOUTH EVERY MORNING. DO NOT BREAK, CRUSH, DISSOLVE OR CHEW. 90 tablet 3 5 Active lisinopril 40 MG tabletIndications :Benign hypertension TAKE 1 TABLET BY MOUTH EVERY MORNING 90 tablet 3 5 Active amitriptyline (Elavil) 25 MG tablet TAKE 1 OR 2 TABLETS BY MOUTH AT BEDTIME 180 tablet 2 5 Active omeprazole (PriLOSEC) [address] capsule Take 1 capsule (20 mg) by mouth 2 times daily. Do not crush or chew. 180 capsule 3 5 01/07/20 26 Active Active Problems Problem Noted Date Diagnosed Date [...] and is unsure about med delivery from [facility] [place]) as well as where her meds are [...] BP remains uncontrolled - reviewed stroke and KS symptoms, to ER/EMS if those symptoms occur [...] She is still awaiting first appointment at [facility] agency, and I have urged her to call them to F/U. Since I will be retiring, patient will be transferred to new [facility] psychiatric prescriber. Pt is aware that these will be televisits and that the provider will not be an employee of [facility]. She gives permission to share PHI. Any issues or concerns, contact [facility]. All her questions were answered and I [...] for serotonin syndrome. Awaiting first appointment at [facility]. On 07/20/2023 provider informed pt that I [...] for serotonin syndrome. Awaiting first appointment at [facility] agency. On 07/20/2023 provider informed pt that [...] now staying with mother. Will refer for SDMI support. Still doing OK with medications. Continue [...] Encounters Date Type Department Care Team Description 01/27/2025 Orders Only [facility] [address] [place] [address] Kadi Tomlin MD Hepatitis C antibody positive in blood (Primary Dx) 01/26/2025 Telephone [facility] [address] [place] [address] Rowena Williamson, BETH 01/25/2025 Patient Outreach [facility] [address] [place] [address] Kadi Tomlin MD Care Coordination (C3/CM F/U) 01/10/2025 Patient Outreach [facility] [address] [place] [phone] Kadi Tomlin MD Care Coordination (C3/CM F/U) 01/04/2025 Refill [facility] [address] [place] [phone] Kadi Tomlin MD 01/03/2025 Orders Only [facility] External Provider, [facility] 01/02/2025 Patient Outreach [facility] [address] [place] [phone] Kadi Tomlin MD Care Coordination (C3/CM F/U) 12/29/2024 Telephone [facility] [address] [place] [address] Kadi Tomlin MD No Show 12/28/2024 Patient Outreach [address] [address] Kadi Tomlin MD Care Coordination (C3/CM Appt reminder) 12/26/[address] [address] Kadi Tomlin MD Nurse Triage 12/23/2024 9:00 AM EDT Office Visit [facility] [address] [place] [address] Tyree, Rossy, OD Presbyopia (Primary Dx) 12/16/2024 Patient Outreach [facility] [address] [place] [phone] Kadi Tomlin MD Care Coordiantion (Outreach) 12/15/2024 Refill [facility] [address] [place] [address] Kadi Tomlin MD 12/02/2024 Population Health [facility] (C3) Department [address] [place] [phone] Provider, Population Health Generic 12/02/2024 Patient Outreach [facility] [address] [place] [address] Kadi Tomlin MD Care Coordination (Outreach) 12/02/2024 Anticoagulation - Warfarin Visit [facility] [address] [place] [address] Indira Vallejo RN 11/30/2024 Refill [facility] [address] [place] [address] Kadi Tomlin MD Benign hypertension 11/28/2024 Refill [facility] [address] [place] [address] Kadi Tomlin MD Depressive disorder 11/17/2024 Patient Outreach [facility] [address] [place], [place] [phone] Kadi Tomlin MD Care Coordination (Outreach) 11/15/2024 Telephone [facility] [address] [place] [address] Kadi Tomlin MD Results 11/04/2024 3:30 PM EST Procedure Visit [facility] [address] [place] [phone] Kadi Tomlin MD Screening for cervical cancer (Primary Dx); Depressive disorder; Encounter for screening mammogram for malignant neoplasm of breast 11/04/2024 Orders Only [facility] [address] [place] [address] Kadi Tomlin MD 11/04/2024 Travel 11/04/2024 Telephone [facility] [address] [place] [address] Kadi Tomlin MD Care Coordination ([facility] initial assessment/ enrollment) 11/03/2024 Orders Only [facility] [address] [place] [phone] Tracey Desai MD 11/03/2024 Telephone [facility] [address] [place] [address] Myesha Ellington MD No Show 11/02/2024 Patient Outreach [facility] [address] [place], [place] [phone] Kadi Tomlin MD Care Coordination (Outreach) from Last 3 Months Immunizations Name Administration [...] 07/14/2023, 04/22, 05/15/2020, Additional history exists Depression Screening 03/28/2025 03/28/2024, 03/28/20 24 Colonoscopy [...] Name Priority Date/Time Associated Diagnosis Comments XR CERVICAL SPINE 3V Routine 01/05/2025 12:18 PM EDT XR HUMERUS RIGHT Routine 01/05/2025 12:1 4 PM EDT PAP SMEAR Routine 11/04/2024 12:00 AM EST HPV DNA, LOW/HIGH RISK Routine 12:00 AM EST HM COLONOSCOPY Routine 06/09/2024 11:24 AM EDT BI MAMMOGRAM SCREENING TOMOSYNTHESIS BILATERAL Routine 07/14/2023 3:15 PM EDT HIV 1/2 ANTIGEN/ANTIBODY, FOURTH GENERATION W/RFL Routine 08/21/2020 11:31 AM EST LIPID PANEL, STANDARD Routine 08/21/2020 11:31 AM EST from Last 3 Months or Most Recently Relevant to Health Maintenance Results * XR CERVICAL SPINE 3V (01/05/2025 12:18 PM EDT) Anatomical Region Laterality Modality Abdomen Radiographic Shyla ging 01/05/2025 12:1 8 PM EDT Narrative 01/05/2025 12:20 PM EDT ? [facility] ? [address] ?[place] [address] ?XRay Report ? Signed ? Patient: Andrew,Danika ?MR#: [id number] ?? 2 ? : 1965 ?Acct:[id number] ? Age/Sex: 59 / F ?ADM Date: 04/15/25 ? Loc: HO.HOSX ? Attending Dr: Leigh Talamantes MD ? Ordering Physician: Leigh Cantu ?? Date of Service: 04/15/25 ?? Procedure(s): XR cervical spine 3V ?? Accession Number(s): [id number] ? cc: Kadi Tomlin; Leigh Cantu ? CLINICAL HISTORY: M54.2 - Cervicalgia ? 3 views cervical spine ? Comparison: None ? Findings: ?? Normal alignment without acute fracture. Right-sided cervical spine ?? curvature. ? No significant disc space narrowing. Upper cervical spine facet ?? osteoarthritis. Unremarkable prevertebral soft tissues. ? IMPRESSION: ?? No acute fracture. ? This document has been electronically signed by: Leighann Baer MD on ?? 01/05/2025 12:18:49 ? Dictated By: ?Leighann Baer MD ? Signed By: ?<Electronically signed by Leighann Baer MD in OV> ? 01/05/25 1219 ? DD/ 1218 ? TD/TT: 01/05/25 1218 ? Mixing Plant Dumper: ? Procedure Note Donfaustinater, Image - 01/05/2025 [facility] [address] [place] [address] [address] [place] [address] XRay Report Signed Patient: Koby Morales#: [id number] 2 : 1965Acct:[id number] Age/Sex: 59 / FADM Date: 01/03/25 Loc: [facility] Attending Dr: Leigh Talamantes MD Ordering Physician: Leigh Cantu Date of Service: 01/03/25 Procedure(s): XR cervical spine 3V Accession Number(s): [id number] cc: Kadi Tomlin; Leigh Cantu CLINICAL HISTORY: M54.2 - Cervicalgia 3 views cervical spine Comparison: None Findings: Normal alignment without acute fracture. Right-sided cervical spine curvature. No significant disc space narrowing. Upper cervical spine facet osteoarthritis. Unremarkable prevertebral soft tissues. IMPRESSION: No acute fracture. This document has been electronically signed by: Leighann Baer MD on 01/05/2025 12:18:49 Dictated By: Leighann Baer MD Signed By: <Electronically signed by Leighann Baer MD in OV> 01/05/25 1219 DD/ 1218 TD/TT: 01/05/251217 Mixing Plant Dumper: [facility] External Provider IMG XR PROCEDURES Final Result * XR Humerus Right (01/05/2025 12:14 PM EDT) Anatomical Region Laterality Modality Upper Extremities, Humerus Right [employer] [facility] 01/05/2025 12:1 4 PM EDT Narrative 01/05/2025 12:16 PM EDT ? [facility] ? [address] ?[place] [address] ?XRay Report ? Signed ? Patient: Andrew,Danika ?MR#: [id number] ?? 2 ? : 1965 ?Acct:[id number] ? Age/Sex: 59 / F ?ADM Date: 01/03/25 ? Loc: HO.HOSX ? Attending Dr: Leigh Talamantes MD ? Ordering Physician: Leigh Cantu ?? Date of Service: 01/03/25 ?? Procedure(s): XR humerus RT ?? Accession Number(s): [id number] ? cc: Kadi Tomlin; Leigh Cantu ? CLINICAL HISTORY: S46.811A - Strain of other muscles, fascia and tendons at shoulder and u... --- Additional Notes or Special Instructions: right shoulder biceps deltoid is swollen ? 2 view right humerus ? Comparison: None ? Findings: ?? No fractures or dislocations. ?? Small tiny densities projecting over the soft tissues of predominantly the ?? dorsal aspect of the middle 3rd of the arm may be due to dystrophic ?? calcifications/tiny phleboliths versus less likely due to intra-articular ?? bodies. ? IMPRESSION: ?? No acute fracture. ? This document has been electronically signed by: Leighann Baer MD on ?? 01/05/2025 12:14:49 ? Dictated By: ?Leighann Baer MD ? Signed By: ?<Electronically signed by Leighann Baer MD in OV> ? 01/05/25 1216 ? DD/ 1214 ? TD/TT: 01/05/25 1214 ? Mixing Plant Dumper: ? Procedure Note Maru Chahal - 01/05/2025 [facility] [address] [place] [address] [address] [place] [address] XRay Report Signed Patient: Koby Morales#: [id number] 2 : 1965Acct:[id number] Age/Sex: 59 / FADM Date: 01/03/25 Loc: [facility] Attending Dr: Leigh Talamantes MD Ordering Physician: Leigh Cantu Date of Service: 01/03/25 Procedure(s): XR humerus RT Accession Number(s): [id number] cc: Rogelio Tomlin CLINICAL HISTORY: S46.811A - Strain of other muscles, fascia and tendonsat shoulder and u... --- Additional Notes or Special Instructions: right shoulder biceps deltoid isswollen 2 view right humerus Comparison: None Findings: No fractures or dislocations. Small tiny densities projecting over the soft tissues of predominantly the dorsal aspect of the middle 3rd of the arm may be due to dystrophic calcifications/tiny phleboliths versus less likely due to intra-articular bodies. IMPRESSION: No acute fracture. This document has been electronically signed by: Leighann Baer MD on 01/05/2025 12:14:49 Dictated By: Leighann Baer MD Signed By: <Electronically signed by Leighann Baer MD in OV> 01/05/25 1216 DD/ 121 TD/TT: 01/05/251213 Mixing Plant Dumper: [facility] External Provider IMG XR PROCEDURES Final Result * (ABNORMAL) HPV DNA, Low/High Risk (11/04/2024 12:00 AM EST) HPV High Risk Positive(A) Negative [facility] HPV Genotype 16 Negative Negative [facility] HPV Genotype 18 Negative Negative [facility] Comment:HPV testing performe d at [facility] (CLIA#[id number]), [address] [place] [address].Testing for HPV was performed using the Rivera [...] detected. 11/04/2024 11/08/2024 9:5 0 AM EST Kadi Tomlin MD LAB BLOOD ORDERABLES Final Res ult [facility] [address] [place] [address] [phone] * Pap Smear (11/04/2024 12:00 AM EST) 11/04/2024 11/08/2024 8:4 5 AM EST Narrative [facility] - 11/11/2024 4:30 PM EST ----- ------- Name: Danika Morales ?Age/Sex: 59/F ? : 1965 Unit#: [id number] ?? Attend Dr: Kadi Tomlin ?Re11/04/24 ?Status: DEP REF ? Location: HO.HHCLNP ? Disch: ? ----- ------- SPEC : [id number] ? RECD: 11/08/24-844 ? STATUS: ??SOUT ? REQ NUM: [id number] ? MARY: 11/04/24-0000 ? SUBM DR: Kadi Tomlin ? ENTERED: ??11/08/24-0945 ?SP TYPE: Pap Smr ?OTHR DR: ? [...] ThinPrep-Cervical ----- ------- Signed (signature on file) Jillian Freeman CT (ASCP) 11/11/24 1630 ? ----- ------- ? END OF REPORT ? us Kadi Tomlin MD LAB CYTOLOGY ORDERABLES Final Result Performing Organization Address [facility]/State/ZIP Co de Phone Number [facility] [address] [facility] [place] [address] [phone] * Hm Colonoscopy (06/09/2024 11:24 AM EDT) us Historical Provider HEALTH MAINTENANCE Final Result * BI Mammogram Screening Tomosynthesis Bilateral (07/14/2023 3:15 PM EDT) Anatomical Region Laterality Modality Breast Bilateral Mammography 07/14/2023 3:15 PM EDT Narrative 08/01/2023 1:28 PM EST ? [facility] ? [address] ?[place] [address] ? Mammography Report ? Signed ? Patient: Danika Morales ?MR#: [id number] ?? 2 ? : 1965 ?Acct:[id number] ? Age/Sex: 57 / F ?ADM Date: 10/24/23 ? Loc: HO.MAMMO ? Attending Dr: Kadi Tomlin MD ? Ordering Physician: Kadi Tomlin ?Results: 1Negative ? Date of Service: 07/14/23 ?Follow Up: 1 Year From Orig ?? inal Mammogram ? Procedure(s): MM tomosynthesis screening BI ?? Accession Number(s): [id number] ? cc: Kadi Tomlin ? EXAMINATION: ?? [...] in OV> ? 08/01/23 1324 ? DD/ ? TD/TT: ? Mixing Plant Dumper: ? Procedure Note Fela, Image - 08/01/2023 [facility] [address] [place] [address] [place] [address] Mammography Report Signed Patient: Koby Morales#: [id number] 2 : 1965Acct:[id number] Age/Sex: 57 / FADM Date: 07/14/23 Loc: HOMary JoMAMMO Attending Dr: Kadi Tomlin MD Ordering Physician: Khadar Tomlinults: 1Negative Date of Service: 07/14/23Follow Up: 1 Year From Orig ina Mammogram Procedure(s): MM tomosynthesis screening BI Accession Number(s): [id number] cc: Kadi Tomlin EXAMINATION: MM SCREENING DIGITAL [...] in OV> 08/01/23 1324 DD/ 1515 TD/TT: Mixing Plant Dumper: us Kadi Tomlin MD IMG BI PROCEDURES Edited Resul t - Final * HIV 1/2 ANTIGEN/ANTIBODY,FOURTH GENERATION W/RFL (08/21/2020 11:31 AM EST) HIV-1/2 ANTIGEN AND ANTIBODIES, 4TH GENERATION W/ REFLEX NON-REACT DINORA NON-REACT DINORA [facility] Comment: HIV-1 antigen and HIV-1/HIV-2 [...] ? For additional information please refer to http://[employer]/faq/JXT770 (This link is being provided for informational/ educational purposes only.) ? The performance of this assay has not been clinically validated in patients less than 2 years old. ?? HIV-1/2 ANTIGEN AND ANTIBODIES, 4TH GENERATION W/ REFLEX NON-REACT DINORA NON-REACT DINORA [facility] Comment: HIV-1 antigen and HIV-1/HIV-2 [...] ? For additional information please refer to http://[employer]/faq/ORO638 (This link is being provided for informational/ educational purposes only.) ? The performance of this assay has not been clinically validated in patients less than 2 years old. ?? 08/21/2020 11:3 1 AM EST us Shantelle Adame MD LAB BLOOD ORDERABLES Final Re sult [facility] [address] * (ABNORMAL) LIPID PANEL, STANDARD (08/21/2020 [...] ?? Alistair DELAROSA et al. CANDI. 2013;310(19): 2213-9537 ?? (http://[employer]/faq/PMQ039) Non-HDL Cholesterol 168(H) <130 mg/dL (calc) FOUNDATION [...] ?? Alistair DELAROSA et al. CANDI. 2013;310(19): 3074-5803 ?? (http://[employer]/faq/QYC629) Non-HDL Cholesterol 168(H) <130 mg/dL (calc) FOUNDATION [...] ?? Alistair DELAROSA et al. CANDI. 2013;310(19): 1273-2524 ?? (http://education.[employer]/faq/PEJ864) Non-HDL Cholesterol 168(H) <130 mg/dL (calc) FOUNDATION [...] [facility] [address] from Last 3 Months or Most Recently Relevant to Health Maintenance Insurance [facility] C3 Care Teams Slab Grinder Relationship Specialty Start Date End Date Kadi Tomlin MD [address] [place] [address] [place] [phone] PCP - General Family Medicine 05/21/21
--- OUTSIDE RECORDS SUMMARY | 2025-01-30 13:50 | XMS_ITS | Encounter Summary ---
Author Organization [employer] Address [address] [facility] 7t [place] [address] Care Team Providers Care Bunch Trimmer Mold Name Role Phone Kadi Tomlin MD Primary Care Provider [phone] Reason for Visit * Reason Comments Med Refill Encounter Details Date Type Department Care Team (Late st Contact Info) Description 03/25/2023 Refill [facility] [address] [place], [place] [phone] Enoc Boles FNP Depressive disorder Social History [...] documented as of this encounter Care Teams Bunch Trimmer Mold Relationship Specialty Start Date End Date Kadi Tomlin MD [address] [facility] [place] [address] PCP - General Family Medicine 05/21/21 documented as of this encounter
--- OUTSIDE RECORDS SUMMARY | 2025-01-30 13:50 | XMS_ITS | Encounter Summary ---
Author Organization [employer] Address [address] [facility] [address]t [place] [address] Care Team Providers Care Creping Machine Operator Helper Name Role Phone Kadi Tomlin MD Primary Care Provider [phone] Reason for Visit * Reason Comments Care Coordination C3/CM F/U Encounter Details Date Type Department Care Team (Latest Contact Info) Description 01/25/2025 Patient Outreach [facility] [address] [place], [place] [phone] Kadi Tomlin MD [address] [place] [address] Care Coordination (C3/CM F/U) Social History Tobacco [...] Progress Notes * Mary Jo Hernandez - 01/25/2025 2:55 PM EDT CHW Mary Jo Hernandez placed outbound call to patient for follow up on SDOH needs. Patient's name, and address confirmed. Patient states is doing well. No further questions or concerns. CHW reinforced direct contact information for any additional questions or concerns and extended clinic hours on Mondays and Wednesdays, and Walk-In Urgent Care Located in [facility]. Patient provided with after-hours line for [facility], , which offer night time triage service and option to transfer to java front end web developer provider if needed. CHW discussed with the patient progress made in the CHW Program. Patient notified is being graduated from the Care Management-CHW Program. Patient was educated on how to receive SDOH services in the future. Patient agrees with the plan and will contact us if any future needs arise. documented in this encounter Plan of Treatment Not on file documented as of this encounter Visit Diagnoses Not on filedocumented in this encounter Additional Health Concerns Assessment Noted Time PHQ-9 Depression Total Score: 15 024 9:17 AM EDT documented as of this encounter Care Teams Creping Machine Operator Helper Relationship Specialty Start Date End Date Kadi Tomlin MD [address] [place] [address] PCP - General Family Medicine 05/21/21 documented as of this encounter
--- OUTSIDE RECORDS SUMMARY | 2025-01-30 13:50 | XMS_ITS | Encounter Summary ---
Author Organization [employer] Address [address] [facility] 7t [place] [address] Care Team Providers Care Neonatal Doctor Name Role Phone Kadi Tomlin MD Primary Care Provider [phone] Encounter Details Date Type Department Care Team (Late st Contact Info) Description 11/03/2024 Orders Only [facility] [address] [facility] [place], [place] [phone] ProviderTracey MD Social History Tobacco Use Types [...] documented as of this encounter Care Teams Neonatal Doctor Relationship Specialty Start Date End Date Kadi Tomlin MD [address] [place] [address] PCP - General Family Medicine 05/21/21 documented as of this encounter
--- OUTSIDE RECORDS SUMMARY | 2025-01-30 13:50 | XMS_ITS | Encounter Summary ---
Author Organization [employer] Address [address] [facility] 7t [place] [address] Care Team Providers Care Malted Milk Supervisor Name Role Phone Kadi Tomlin MD Primary Care Provider [phone] Encounter Details Date Type Department Care Team (Late st Contact Info) Description 01/27/2025 Orders Only [facility] MEDICINE [address] [place], [place] [phone] Kadi Tomlin MD [address] [place], [place] [phone] Hepatitis C antibody positive in blood (Primary Dx) Social History Tobacco Use Types [...] as of this encounter Plan of Treatment Scheduled Orders Name Type Priority Associated Diagnoses Orde r Schedule Hepatitis C Antibody with Reflex to HCV, RNA, Quantitative, Real-Time PCR Lab Routine Hepatitis C antibody positive in blood Expected: 01/27/2025, Expires: 01/27/2026 documented as of this encounter Visit Diagnoses Diagnosis Hepatitis C antibody positive in blood- Primary documented in this encounter Additional Health Concerns Assessment Noted Time PHQ-9 Depression Total Score: 15 024 9:17 AM EDT documented as of this encounter Care Teams Malted Milk Supervisor Relationship Specialty Start Date End Date Kadi Tomlin MD [address] [place] [address] PCP - General Family Medicine 05/21/21 documented as of this encounter
--- OUTSIDE RECORDS SUMMARY | 2025-01-30 13:50 | XMS_ITS | Encounter Summary ---
Author Organization [employer] Address [address] [facility] 7t [place] [address] Care Team Providers Care Paperhanger Supervisor Name Role Phone Kadi Tomlin MD Primary Care Provider [phone] Reason for Visit * Reason Onset Date Comments Appointment Request 03/27/2023 Encounter Details Date Type Department Care Team ([facility] st Contact Info) Description 03/27/2023 Telephone [facility] MEDICINE [address] [place], [place] [phone] Kadi Tomlin MD [address] [place], [place] [phone] Appointment Request Social History Tobacco Use Types [...] with Enoc Boles. Please contact pt at [phone] documented in this encounter Plan of Treatment Not on file documented as of this encounter Visit Diagnoses Not on filedocumented in this encounter Additional Health Concerns Assessment Noted Time PHQ-9 Depression Total Score: 9 01/09/20 23 9:12 AM EDT documented as of this encounter Care Teams Paperhanger Supervisor Relationship Specialty Start Date End Date Kadi Tomlin MD [address] [place] [address] PCP - General Family Medicine 05/21/21 documented as of this encounter
--- OUTSIDE RECORDS SUMMARY | 2025-01-30 13:50 | XMS_ITS | Encounter Summary ---
Author Organization [employer] Address [address] [facility] 7t [place] [address] Care Team Providers Care General Road Supervisor Name Role Phone Kadi Tomlin MD Primary Care Provider [phone] Encounter Details Date Type Department Care Team (Late st Contact Info) Description 11/28/2022 Orders Only [facility] MEDICINE [address] [place], [place] [phone] Kadi Tomlin MD [address] [place], [place] [phone] Other hyperlipidemia (Primary Dx); Pain of lower [...] EDT Narrative 12/17/2022 8:44 AM EDT ? [facility] ?[address] ?[place] [address] ?XRay Report ? Signed ? Patient: Danika Morales ?MR#: [id number] ?? 2 ? : 1965 ?Acct:[id number] ? Age/Sex: 57 / F ?ADM Date: 12/10/22 ? Loc: HO.XRAY ? Attending Dr: Kadi Tomlin MD ? Ordering Physician: Kadi Tomlin ?? Date of Service: 12/10/22 ?? Procedure(s): XR wrist LT min 3V ?? Accession Number(s): [id number] ? cc: Kadi Tomlin ? EXAMINATION: ?? [...] ?12/17/2241 ? DD/ 1048 ? TD/TT: ? Machine Stitcher: MSM ? Procedure Note Jeffreytomasz, Maru - 01/05/2023 [place] [address] XRay Report Signed Patient: Koby Morales#: [id number] 2 : 1965Acct:[id number] Age/Sex: 57 / FADM Date: 12/10/22 Loc: HO.XRAY Attending Dr: Kadi Tomlin MD Ordering Physician: Kadi Tomlin Date of Service: 12/10/22 Procedure(s): XR wrist LT min 3V Accession Number(s): [id number] cc: Kadi Tomlin EXAMINATION: XR ELBOW, LEFT [...] in OV> 12/17/22 0841 DD/ 1048 TD/TT: Machine Stitcher: BLAN[facility] External Provider IMG XR PROCEDURES Final Result * XR Elbow 1-2 Views Left (12/10/2022 10:48 AM EDT) Anatomical Region Laterality Modality Upper Extremities, Elbow Left Radiogr aphic Imaging 12/10/2022 10:4 8 AM EDT Narrative 12/17/2022 8:44 AM EDT ? [facility] ?[address] ?[place] [address] ?XRay Report ? Signed ? Patient: Danika Morales ?MR#: [id number] ?? 2 ? : 1965 ?Acct:[id number] ? Age/Sex: 57 / F ?ADM Date: 12/10/22 ? Loc: HO.XRAY ? Attending Dr: Kadi Tomlin MD ? Ordering Physician: Kadi Tomlin ?? Date of Service: 12/10/22 ?? Procedure(s): XR elbow LT 2V ?? Accession Number(s): [id number] ? cc: Kadi Tomlin ? EXAMINATION: ?? [...] 0841 ? DD/ 1048 ? TD/TT: ? Machine Stitcher: BLANCA ? Procedure Note Donotsolomonter, Image - 12/17/[address] [address] XRay Report Signed Patient: Koby Morales#: [id number] 2 : 1965Acct:[id number] Age/Sex: 57 / FADM Date: 12/10/22 Loc: RAYO Attending Dr: Kadi Tomlin MD Ordering Physician: Kadi Tomlin Date of Service: 12/10/22 Procedure(s): XR elbow LT 2V Accession Number(s): [id number] cc: Kadi Tomiln EXAMINATION: XR ELBOW, LEFT XR WRIST, LEFT [...] in OV> 12/17/22 0841 DD/ 1048 TD/TT: Machine Stitcher: BLAN[facility] External Provider IMG XR PROCEDURES Final Result * XR Shoulder 2+ Views Left (12/10/2022 10:48 AM EDT) Anatomical Region Laterality Modality Upper Extremities, Shoulder Left Radi ographic Imaging 12/10/2022 10:4 8 AM EDT Narrative 12/17/2022 8:44 AM EDT ? [facility] ?[address] ?[place] [address] ?XRay Report ? Signed ? Patient: Andrew,Danika ?MR#: [id number] ?? 2 ? : 1965 ?Acct:[id number] ? Age/Sex: 57 / F ?ADM Date: 12/10/22 ? Loc: HO.XRAY ? Attending Dr: Kadi Tomlin MD ? Ordering Physician: Kadi Tomlin ?? Date of Service: 12/10/22 ?? Procedure(s): XR shoulder LT min 2V ?? Accession Number(s): [id number] ? cc: Kadi Tomlin ? EXAMINATION: ?? [...] Signed By: ?<Electronically signed by Nick S MD Lulú in OV> ?12/17/22 0841 ? DD/DT: 12/10/ 1048 ? TD/TT: ? Machine Stitcher: MSM ? Procedure Note Fela, Image - 12/17/2022 [facility] [address] [place] [address] XRay Report Signed Patient: Koby Morales#: [id number] 2 : 1965Acct:[id number] Age/Sex: 57 / FADM Date: 12/10/22 Loc: HO.XRAY Attending Dr: Kadi Tomlin MD Ordering Physician: Kadi Tomlin Date of Service: 12/10/22 Procedure(s): XR shoulder LT min 2V Accession Number(s): [id number] cc: Kadi Tomlin EXAMINATION: XR ELBOW, LEFT [...] in OV> 12/17/22 0841 DD/ 1048 TD/TT: Machine Stitcher: BLAN[facility] External Provider IMG XR PROCEDURES Final Result documented in this encounter Visit Diagnoses Diagnosis Other hyperlipidemia- Primary Pain of lower extremity, unspecified laterality documented in this encounter Additional Health Concerns Assessment Noted Time PHQ-9 Depression Total Score: 7 11/11/19 23 8:54 AM EST documented as of this encounter Care Teams General Road Supervisor Relationship Specialty Start Date End Date Kadi Tomlin MD [address] [place] [address] PCP - General Family Medicine 05/21/21 documented as of this encounter
--- OUTSIDE RECORDS SUMMARY | 2025-01-30 13:50 | XMS_ITS | Encounter Summary ---
Author Organization [employer] Address 75 [facility] 7t [place] [address] Care Team Providers Care Septic Tank Installer Name Role Phone Kadi Tomlin MD Primary Care Provider [phone] Encounter Details Date Type Department Care Team (Late st Contact Info) Description 01/26/2025 Telephone [facility] MEDICINE [address] [place], [place] [phone] Rowena Williamson, BETH [address] [place] [address] Social History Tobacco Use Types Packs/Day Years [...] encounter Miscellaneous Notes * Telephone Encounter - Rowena iWlliamson RN - 01/27/2025 9:45 AM EDT RN called pt, spoke to pt via drawing instructor, pt agrees to come in for labwork. RN called pt, unable to reach or LVM, VM Box is full Pt has a dx of Hep C, unable to see a VL, please advise if you would like this ordered. Thank you. * Telephone Encounter - Rowena Williamson RN - 01/26/2025 1:15 PM EDT Pt has a dx of Hep C, unable to see a VL, please advise if you would like this ordered. Thank you. documented in this encounter Plan of Treatment Not on file documented as of this encounter Visit Diagnoses Not on filedocumented in this encounter Additional Health Concerns Assessment Noted Time PHQ-9 Depression Total Score: 15 024 9:17 AM EDT documented as of this encounter Care Teams Septic Tank Installer Relationship Specialty Start Date End Date Kadi Tomlin MD [address] [place] [address] PCP - General Family Medicine 05/21/21 documented as of this encounter
--- OUTSIDE RECORDS SUMMARY | 2025-01-30 13:51 | XMS_ITS | Encounter Summary ---
Author Organization [employer] Address 75 [facility] 7t [place] [address] Care Team Providers Care Gate Keeper Name Role Phone Kadi Tomlin MD Primary Care Provider [phone] Encounter Details Date Type Department Care Team (Late st Contact Info) Description 05/28/2023 Orders Only [facility] MEDICINE [address] [place], [place] [phone] Provider, MD Tracey Social History Tobacco Use [...] this encounter Results * Hm Colonoscopy (09/07/2018) Historical Provider HEALTH MAINTENANCE Final Result documented in this encounter Visit Diagnoses Not on filedocumented in this encounter Additional Health Concerns Assessment Noted Time PHQ-9 Depression Total Score: 7 05/18/20 23 3:02 PM EDT documented as of this encounter Care Teams Gate Keeper Relationship Specialty Start Date End Date Kadi Tomlin MD [address] [place] [address] PCP - General Family Medicine 05/21/21 documented as of this encounter
--- OUTSIDE RECORDS SUMMARY | 2025-01-30 13:51 | XMS_ITS | Encounter Summary ---
Author Organization [employer] Address [address] [facility] 7t [place] [address] Care Team Providers Care Printed Circuit Board Designer Name Role Phone Kadi Tomlin MD Primary Care Provider [phone] Encounter Details Date Type Department Care Team (Late st Contact Info) Description 06/19/2023 Orders Only [facility] MEDICINE [address] [place], [place] [phone] Kadi Tomlin MD [address] [place], [place] [phone] Social History Tobacco Use Types Packs/Day Years [...] documented as of this encounter Care Teams Printed Circuit Board Designer Relationship Specialty Start Date End Date Kadi Tomlin MD [address] [place], [place] [phone] PCP - General Family Medicine 05/21/21 documented as of this encounter
--- OUTSIDE RECORDS SUMMARY | 2025-01-30 13:51 | XMS_ITS | Clinical Summary ---
Author Organization [facility] Address [address] [place] [address] Care Team Providers Care Sink Cutter Name Role Phone Unavailable Primary Care Provider [...]
--- OUTSIDE RECORDS SUMMARY | 2025-01-30 13:51 | XMS_ITS | Encounter Summary ---
Author Organization [employer] Address [address] [facility] 7t [place] [address] Care Team Providers Care Senior Account Manager Name Role Phone Kadi Tomlin MD Primary Care Provider [phone] Encounter Details Date Type Department Care Team (Late st Contact Info) Description 08/17/2023 Abstract [facility] MEDICINE 230 [facility] [place], [place] [phone] Denisse Castillo Social History Tobacco Use Types [...] documented as of this encounter Care Teams Senior Account Manager Relationship Specialty Start Date End Date Kadi Tomlin MD [address] [place] [address] PCP - General Family Medicine 05/21/21 documented as of this encounter
--- OUTSIDE RECORDS SUMMARY | 2025-01-30 13:51 | XMS_ITS | Encounter Summary ---
Author Organization [employer] Address [address] [facility] 7t [place] [address] Care Team Providers Care Rumper Name Role Phone Kadi Tomlin MD Primary Care Provider [phone] Reason for Visit * Reason Onset Date Comments Nurse Triage 04/05/2024 Encounter Details Date Type Department Care Team ([facility] st Contact Info) Description 04/05/[address] [facility] MEDICINE 230 [place], [place] [phone] Kadi Tomlin MD [address] [place], [place] [phone] Nurse Triage Social History Tobacco Use Types [...] 04/05/2024 12:14 PM EDT Triage call with [employer] [place] [id number] Pt reports low blood pressure of 106/80 [...] fordays. Pt is advised to come to [facility] today to be seen by provider [...] accepted this outcome Please contact pt @ [phone] Essie Speaker documented in this encounter Plan of Treatment Not on file documented as of this encounter Visit Diagnoses Not on filedocumented in this encounter Additional Health Concerns Assessment Noted Time PHQ-9 Depression Total Score: 15 024 9:17 AM EDT documented as of this encounter Care Teams Rumper Relationship Specialty Start Date End Date Kadi Tomlin MD [address] [place] [address] PCP - General Family Medicine 05/21/21 documented as of this encounter
--- OUTSIDE RECORDS SUMMARY | 2025-01-30 13:51 | XMS_ITS | Clinical Summary ---
Author Organization [facility] Address [address] [place] [address] Care Team Providers Care Grease And Tallow Pumper Name Role Phone Unavailable Primary Care Provider [...] 2012 Fecal DNA 2012 Flexible Sigmoidoscopy 2012 [id number] ( season) 2024 05/05/2022, 11/18/2021, 05/29/2021, Additional [...] Discontinued Vaginal Pap Discontinued Vulvoscopy Discontinued Insurance [place] MED[place]ID
[2025-01-31 07:45] LABS: ~HepC Num1 14.07 S/CO (0.00-0.79); ~Hepatitis C Antibody Reactive (Nonreactive)
[2025-02-01 21:38] LABS: HCV Log PCR <1.18 NOT DETECTED Log IU/mL (NOT DETECTED); HepC Viral Load <15 NOT DETECTED IU/mL (NOT DETECTED)
== END 2025-01-30 13:32 | disposition home or self-care (01) ==
LOC: HO.HHCL 13:31
PROVIDERS: Visit Provider General Practice
DX: R76.8 Other specified abnormal immunological findings in serum (principal)
CPT/HCPCS: 36415; 86803; 87522

== ENCOUNTER 2025-03-29 12:10 | Outpatient (REF) | payer MEDICAID, SELFPAY ==
--- OUTSIDE RECORDS SUMMARY | 2025-03-30 12:32 | XMS_ITS | Clinical Summary ---
Author Organization [facility] ity Address [address] [place] [address] Care Team Providers Care Supervisor Matrix Name Role Phone Unavailable Primary Care Provider [...] 2023-2 5 season) 2024 Influenza Vaccine (#1) 2025 HIB Vaccines Aged Out No longer [...]
--- OUTSIDE RECORDS SUMMARY | 2025-03-30 12:32 | XMS_ITS | Encounter Summary ---
Author Organization [employer] Address [address] [facility] 7t [place] [address] Care Team Providers Care Gathering Machine Feeder Name Role Phone Kadi Tomlin MD Primary Care Provider [phone] Encounter Details Date Type Department Care Team (Late st Contact Info) Description 11/03/2024 Orders Only [facility] MEDICINE 230 [facility] [place], [place] [phone] ProviderTracey MD Social History Tobacco Use Types [...] documented as of this encounter Care Teams Gathering Machine Feeder Relationship Specialty Start Date End Date Kadi Tomlin MD 230 [place] [address] PCP - General Family Medicine 05/21/21 documented as of this encounter
--- OUTSIDE RECORDS SUMMARY | 2025-03-30 12:32 | XMS_ITS | Clinical Summary ---
Author Organization [facility] Address [address] [place] [address] Care Team Providers Care Engineering And Scientific Programmer Name Role Phone Unavailable Primary Care Provider [...] 2012 Fecal DNA 2012 Flexible Sigmoidoscopy 2012 Imm-Pneumococcal 50+ (1 of 1 - PCV) 2017 [id number] (5 - season) 2024 05/05/2022, 11/18/2021, 05/29/2021, Additional history exists Alcohol and Drug Screen 09/21/2024 Depression Annual Screen 09/21/2024 Imm-Influenza (#1) 2025 06/24/2023, 0 09/29/2022, 07/27/2022, Additional history exists Lipid Screening 08/21/2025 08/21/2020 Diabetes Screening 08/04/2026 08/04/2023, 08/04/2023 Imm-DTaP/Tdap/Td (3 - Td or Tdap) 11/18/2031 11/18/2021, 07/23/2011, 08/31/1998 Imm-Hepatitis B Completed 12/01/2005, 10/22, 11/02/2000, Additional history exists Imm-Zoster, Recombinant Completed 07/09/2020, 11/14 HIV Screening Completed 08/21/2020, 08/21/2020 Cervical Ablation/Cold-Knife Conization Discontinued Cervical Cryotherapy Discontinued Colposcopy Discontinued Endometrial Biopsy Discontinued Excision/Leep Discontinued HPV Genotyping Discontinued Vaginal Pap Discontinued Vulvoscopy Discontinued Insurance [place] MEDICAID
== END 2025-03-29 12:11 | disposition home or self-care (01) ==
LOC: HO.HHCLNP 12:10
PROVIDERS: Visit Provider Nurse Practitioner
DX: R82.90 Unspecified abnormal findings in urine (principal)
CPT/HCPCS: 87086; 87088; 87186

== ENCOUNTER 2025-04-10 14:00 | Outpatient (AMB) | payer MEDICAID, SELFPAY ==
--- NOTE | 2025-04-10 14:09 | A.OFFVIS_ITS ---
Vital Signs 04/10/25 14:24 Height 5 ft 4 in Weight 178 lb 9.191 oz BMI 30.6 BP 106/51 L Blood Pressure Location Lt brachial Position Sitting Pulse 89 Intake Visit Reasons: f/u constipation PT N/S her last 2 appt Intake Note: Danika presents in the office as a f/u constipation. CC: States that she has lots of heartburn and constipation because she is out of the medication that helps her go to the bathroom. 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 KUB revealed stool in the colon, distended loops of proximal colon to the splenic flexure. There is paucity of bowel gas seen distal to this region and large-bowel obstruction could not be excluded. Appearance is similar to the CT scan of July 2011. She then called the office for urgent added on as she has still been unable to use the bathroom by 10/10/2019 even after Fleet enemas were ordered patient reports only moving her bowels this size of a quarter size amounts. Patient was then again sent for a x-ray upright of the abdomen/chest X-ray of the upper abdomen and chest revealed nml chest, moderate stool burden in abdomen She was then sent over MiraLax prep and magnesium citrate and she reports that she moved her bowels after this. she had c/o a lot of time trying to push to produce a bowel movement she feels she doesn't fully evacuate she was referred to [facility] for [facility] Patient underwent a colonoscopy on 09/[address] Adams. The colonoscopy revealed and long and tortuous colon with occasional spasms during procedure. The prep was found to be excellent. No polyps removed. Needs repeat in 5 yrs due to family h/o colon cancer omeprazole was increased to 40 mg bid due to epigastric pain and discomfort she was given trial of motegrity, but felt no help, she was taking castor oil with good results, advised to replace castor oil with prune juice, due to risks of oil on GI tract PPI was helping her reflux and abdo pain she has dysphagia to solids and liquids, going on for 1 month also like a ball sensation in epigastrium so EGD done 08/11 as below motegrity didn;t help her sx and may her feel sick GES pos 07/2020-- 21 % retained at 4 hrs EGD was done 08/2020 w/ small hiatal hernia, bx with moderate gastritis, no h pylori noted EGD 08/11-- botox and pyloric dilation done EGD/colo: 06/14- dilation, poor prep INTERIM: she has been noting worsening reflux and difficulty swallowing with both and throat closing off she ran out of linalcotide and constipation is worse she had omeprazole for 1 month only, she is also on many other meds u tox pos for BZD and cocaine in apst but she bud this now Hep C AB pos but PCR neg EXAM: GENERAL: The patient is well developed and nontoxic. VITAL SIGNS:see workflow HEENT: Nonicteric sclerae, PERRLA, EOMI. Oropharynx clear. Moist mucous membranes. Conjunctivae appear well perfused. No thyroid mass. CHEST: Chest wall is nontender. HEART: Regular rate and rhythm without murmurs. LUNGS: Clear to auscultation bilaterally. ABDOMEN: Soft, positive bowel sounds, tender epigastrium, no organomegaly.no flank tenderness SKIN: No rash, no excessive bruising, petechiae, or purpura. NEUROLOGIC: Cranial nerves II-XII intact without motor/sensory deficit. Assessment & Plan (1) Early satiety, gastroparesis, 2/ constipation may have global GI dysmotility, ?dysautonomia-- PLAN: 1/ change PPI to esomeprazole 2/ cont linaclotide 3/rept colo with golyte and zofran PFSH Medical History Substance abuse Osteoarthritis GERD (gastroesophageal reflux disease) Hypothyroid Hx of hepatitis C Migraines Anxiety Depression Asthma Hypertension Surgical History History of esophagogastroduodenoscopy (EGD) History of nasal surgery History of tubal ligation History of colonoscopy Family History Father No problems noted. Mother HTN (hypertension) Social History Household Members: Family Housing: House Are you a primary foster care case manager to a significant other at home: No Do you presently have visiting nurse or other home services: No Alcohol intake: never Patient Tobacco Use Status: Never used Tobacco e-Cigarette/Vaping Use: Never Used Substance Use Type: Crack/Cocaine Advance Directives Date on File: 02/19/22 service: No Current occupational status: employed Current occupation: right hand dominant Sexual orientation: Straight/Heterosexual Physical Exam Vital Signs: Last Vital Signs Pulse 89 04/10/25 14:24 BP 106/51 L 04/10/25 14:24 BMI result Body Mass Index 30.6 Assessment & Plan Assessment & Plan (1) Colon cancer screening: Code(s): Z12.11 - Encounter for screening for malignant neoplasm of colon Category: Medical Plan: as above (2) Anemia: Code(s): D64.9 - Anemia, unspecified Category: Medical Plan: as above Orders: Orders Hemoglobin Electrophoresis Today D64.9 - Anemia, unspecified, Z12.11 - Encounter for screening for malignant neoplasm of colon Ferritin Today D64.9 - Anemia, unspecified, Z12.11 - Encounter for screening for malignant neoplasm of colon Complete Blood Count Auto Diff Today D64.9 - Anemia, unspecified, Z12.11 - Encounter for screening for malignant neoplasm of colon Vitamin B12 and Folate Today D64.9 - Anemia, unspecified, Z12.11 - Encounter for screening for malignant neoplasm of colon Medications: New linaclotide 290 mcg PO DAILY 90 caps 1RF esomeprazole magnesium 40 mg PO DAILY 90 caps 2RF peg 3350-electrolytes 236-22.74-6.74 -5.86 gram (Golytely) until fecal effluent is clear 240 mL PO Q10M 4,000 mL 0RF ondansetron 4 mg PO Q8H PRN 14 tabs 0RF nausea and vomiting Discontinued omeprazole Discontinued Reason: Doctor's Order 20 mg PO BID@0630,1630 30 days 60 caps 0RF Coding Level of Care Code Est Pt Level 4 (55097) Diagnoses Colon cancer screening Z12.11 Anemia D64.9
[2025-04-10 14:24] VITALS: BP 106/51; PULSE 89; BMI 30.6
--- OUTSIDE RECORDS SUMMARY | 2025-04-10 14:52 | XMS_ITS | Clinical Summary ---
Author Organization [facility] ity Address [address] [place] [address] Care Team Providers Care Sub Master Name Role Phone Unavailable Primary Care Provider [...] 2) 2017 Colorectal Cancer Screening: Colonoscopy 10/16/2023 HIV Screening 10/16/2023 Hepatitis C Screening 10/16/2023 Social Influencers of Health Screening 10/16/2023 COVID-19 Vaccine ( - 2023-2 5 season) 2024 Depression Screening 09/21/2024 Influenza Vaccine (#1) 2025 HIB Vaccines Aged [...]
--- OUTSIDE RECORDS SUMMARY | 2025-04-10 14:52 | XMS_ITS | Encounter Summary ---
Author Organization [employer] Address [address] [facility] 7t [place] [address] Care Team Providers Care Automatic Spooler Operator Name Role Phone Kadi Tomlin MD Primary Care Provider [phone] Encounter Details Date Type Department Care Team (Late st Contact Info) Description 11/03/2024 Orders Only [facility] MEDICINE 230 [facility] [place], [place] [phone] ProviderTracey MD Social History Tobacco Use Types [...] documented as of this encounter Care Teams Automatic Spooler Operator Relationship Specialty Start Date End Date Kadi Tomlin MD [address] [place] [address] PCP - General Family Medicine 05/21/21 documented as of this encounter
--- OUTSIDE RECORDS SUMMARY | 2025-04-10 14:52 | XMS_ITS | Clinical Summary ---
Author Organization [facility] Address [address] [place] [address] Care Team Providers Care Mat Sewer Name Role Phone Unavailable Primary Care Provider [...] 50+ (1 of 1 - PCV) 2017 [id number] (5 - season) 2024 05/05/2022, 11/18/2021, 05/29/2021, [...] Discontinued Vaginal Pap Discontinued Vulvoscopy Discontinued Insurance [place]ICA[place]
== END 2025-04-10 14:47 | disposition home or self-care (01) ==
PROVIDERS: PCP General Practice; Visit Provider Internal Medicine Gastroenterology
DX: Z01.818 Encounter for other preprocedural examination (principal); Z12.11 Encounter for screening for malignant neoplasm of colon; D64.9 Anemia, unspecified
CPT/HCPCS: 99214

== ENCOUNTER → 2025-04-10 14:00 | Outpatient (BNVA) | payer OTHER, SELFPAY | PROVIDERS: PCP General Practice; Visit Provider Internal Medicine Gastroenterology | DX: Z12.11 Encounter for screening for malignant neoplasm of colon (principal); D64.9 Anemia, unspecified | CPT/HCPCS: 99212 ==

== ENCOUNTER 2025-06-22 12:52 | Emergency (ER) | payer MEDICAID, SELFPAY ==
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
[2025-06-22 13:01] VITALS: BP 80/50; O2SAT 97
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
[2025-06-22 13:10] VITALS: BMI 30.9
[2025-06-22 14:30] VITALS: BP 110/60; PULSE 69; RESP 16; TEMP 36.6; O2SAT 99
--- OUTSIDE RECORDS SUMMARY | 2025-06-22 15:31 | XMS_ITS | Encounter Summary ---
Author Organization [employer] Address [address] [place] [address] Care Team Providers Care Community Arts Officer Name Role Phone Kadi Tomlin MD Primary Care Provider [phone] Encounter Details Date Type Department Care Team (Late st Contact Info) Description 11/03/2024 Orders Only [facility] [address] [place], [place] [phone] ProviderTracey MD Social History Tobacco Use Types [...] Care Team (Late st Contact Info) Description 08/28/2025 2:15 PM EST Office Visit [facility] [address] [place] [phone] Kadi Tomlin MD [address] [place] [phone] documented as of this encounter Procedures Procedure [...] documented as of this encounter Care Teams Community Arts Officer Relationship Specialty Start Date End Date Kadi Tomlin MD [address] [place] [address] [phone] PCP - General Family Medicine 05/21/21 documented as of this encounter
--- OUTSIDE RECORDS SUMMARY | 2025-06-22 15:31 | XMS_ITS | Clinical Summary ---
Author Organization [employer] Address [address] [facility] 7t [place] [address] Care Team Providers Care Lead Accountant Name Role Phone Kadi Tomlin MD Primary Care Provider [phone] Allergies No known active allergies Medications * This document contains information received from the source organization and may not represent a complete record from that organization. linaCLOtide (Linzess) 290 MCG capsule Take 1 capsule by mouth in the morning. Active lansoprazole (Prevacid) [address] Anna ons:Gastroesoph ageal reflux disease without esophagitis Take [...] DIRECTED 30 patch 6 02/12/20 24 Active cloNIDine (Catapres) 0.1 MG tabletIndicatio [...] day. 90 tablet 3 04/08/20 24 Active ibuprofen 400 MG tablet Take 1 tablet (400 mg) by mouth every 6 (six) hours if needed for moderate pain or fever for up to 30 doses. 20 tablet 07/13/20 24 Active Diclofenac Sodium 1 % gel APPLY 4 GRAMS TOPICALLY 4 TIMES A DAY IN THE MORNING, AT NOON, IN THE EVENING, AND AT BEDTIME FOR PAIN 100 g 10/12/19 25 Active hydroCHLOROthia zide (HYDRODiuril) 25 MG tabletIndicatio ns:Benign hypertension TAKE 1 TABLET BY MOUTH EVERY DAY 90 tablet 3 10/18/19 25 Active zolpidem (Ambien) 5 MG tabletIndicatio [...] BEDTIME 180 tablet 2 12/16/19 25 Active omeprazole (PriLOSEC) [address] capsule Take 1 capsule (20 mg) by mouth 2 times daily. Do not crush or chew. 180 capsule 3 01/07/20 25 2025 Active escitalopram (Lexapro) 10 MG tabletIndicatio ns:Depressive disorder TAKE 1 TABLET BY MOUTH IN THE MORNING 90 tablet 03/14/20 25 Active busPIRone (Buspar) 30 MG tabletIndicatio ns:Depressive disorder TAKE 1 TABLET BY MOUTH TWICE DAILY NEEDED FOR ANXIETY 60 tablet 04/25/20 25 Active baclofen (Lioresal) 10 MG tablet TAKE 1 TABLET BY MOUTH THREE TIMES DAILY NEEDED FOR MUSCLE SPASMS 60 tablet 1 04/27/20 25 Active cholecalciferol VITAMIN D (Vitamin D-3) 50 MCG (1999 UT) tabletIndicatio ns:Vitamin D deficiency TAKE 1 TABLET BY MOUTH EVERY DAY 90 tablet 3 06/02/20 25 Active SUMAtriptan (Imitrex) 100 MG tabletIndicatio ns:Chronic migraine without aura without status migrainosus, not intractable TAKE 1 TABLET BY MOUTH ONCE NEEDED FOR MIGRAINE, TAKE WITH naproxen 9 tablet 3 06/15/20 25 Active butalbital-acet aminophen-caffe ine 50-325-40 MG tabletIndicatio ns:Chronic migraine without aura without status migrainosus, not intractable Take 1 tablet by mouth Once daily as needed for migraine (limit to 2 doses per week to avoid rebound headache) for up to 15 doses. 15 tablet 06/16/20 25 Active acetaminophen (Tylenol 8 Hour) 650 MG ER tabletIndicatio ns:Acute bilateral low back pain without sciatica Take 1 tablet (650 mg) by mouth every 8 (eight) hours if needed for mild pain for up to 10 days. Do not crush, chew, or split. 30 tablet 06/16/20 25 2024 Active cyclobenzaprine (Flexeril) 10 MG tabletIndicatio ns:Acute bilateral low back pain without sciatica Take 1 tablet (10 mg) by mouth 3 times daily for 10 days. 30 tablet 06/16/20 25 2024 Active lidocaine (Lidoderm) 5 % patchIndication s:Acute bilateral low back pain without sciatica Apply 1 patch topically Once per day. Remove & discard patch within 12 hours or as directed by . 30 patch 1 06/16/20 25 Active butalbital-acet aminophen-caffe ine 50-325-40 MG tabletIndicatio ns:Chronic migraine without aura without status migrainosus, not intractable Take 1 tablet by mouth Once daily as needed for migraine (limit to 2 doses per week to avoid rebound headache) for up to 15 doses. 15 tablet 03/03/20 24 2024 Discontinued(R eorder (will not trigger notification to Pharmacy)) cholecalciferol (Vitamin D-3) 50 MCG (1999 UT) tabletIndicatio ns:Vitamin D deficiency Take 1 tablet by mouth daily 90 tablet 3 04/11/20 24 2024 Discontinued SUMAtriptan (Imitrex) 100 MG tabletIndicatio ns:Chronic migraine without aura without status migrainosus, not intractable Take 1 tablet (100 mg) by mouth 1 (one) time if needed for migraine for up to 36 doses. Take with naproxen 9 tablet 3 03/29/20 25 2024 Discontinued naproxen (Naprosyn) 250 MG tabletIndicatio ns:Acute low back pain, unspecified back pain laterality, unspecified whether sciatica present,Chronic migraine without aura without status migrainosus, not intractable Take 1 tablet (250 mg) by mouth 2 times daily. Take with sumatriptan 60 tablet 04/25/20 25 2024 Active Problems Problem Noted Date Diagnosed Date Primary hypertension 06/16/2025 Assessment & Plan (06/16/2025 7:19 PM EDT): I advised low Na diet I called the pharmacy for an early refill on her nifedipine and lisinopril I advised to monitor her BP at home and report back if BP is above 140/90mmhg F/u with PCP Acute bilateral low back pain without sciatica 0 06/16/2025 Assessment & Plan (06/16/2025 7:21 PM EDT): Apply heat on affected area I prescribed acetaminophen and flexeril, patient is aware of side effect somnolence, she can not drive while taking this medication I prescribed lidocaine patch Will consider PT Right lower lobe pneumonia 11/04/2023 Assessment & [...] resolved by tomorrow morning, to come to [facility] or ER Assessment & Plan (11/04/2023 10:45 [...] and is unsure about med delivery from [facility] ([facility] in [place]) as well as where her meds are [...] already for 3 weeks Chronic hepatitis C (CMS/HCC) 02/16/2013 Migraine 02/16/2013 Assessment & Plan (06/16/2025 7:22 PM EDT): I advise to avoid migraine triggers like red wine, chocolate, cheese, strong perfumes I refilled her fioricept Assessment & Plan (07/31/2023 12:13 PM EST): [...] She is still awaiting first appointment at new outpatient agency, and I have urged her to call them to F/U. Since I will be retiring, patient will be transferred to new [facility] psychiatric prescriber. Pt is aware that these will be televisits and that the provider will not be an employee of [facility]. She gives permission to share PHI. Any issues or concerns, contact [facility]. All her questions were answered and [...] now staying with mother. Will refer for [facility] support. Still doing OK with medications. [...] Encounters Date Type Department Care Team Description 06/16/2025 1:30 PM EDT Office Visit [facility] [address] [place] [phone] Jennifer Mckeon MD Primary hypertension (Primary Dx); Chronic migraine without aura without status migrainosus, not intractable; Acute bilateral low back pain without sciatica 06/16/2025 Travel 06/15/2025 Telephone [facility] [address] [place] [phone] Kadi Tomlin MD Nurse Triage 06/14/2025 Refill [facility] [address] [place] [address] [phone] Virgen Cordero NP Chronic migraine without aura without status migrainosus, not intractable 06/01/2025 Refill [facility] [address] [place], [place] [phone] Kadi Tomlin MD Vitamin D deficiency 04/27/2025 Refill [facility] [address] [place] [phone] Kadi Tomlin MD 04/24/2025 Refill [facility] [address] [place] [address] [phone] Vicky Can DO Depressive disorder; Acute low back pain, unspecified back pain laterality, unspecified whether sciatica present; Chronic migraine without aura without status migrainosus, not intractable 04/24/2025 Refill [facility] [address] [place] [phone] Virgen Cordero NP Acute low back pain, unspecified back pain laterality, unspecified whether sciatica present; Chronic migraine without aura without status migrainosus, not intractable 04/05/2025 Results Follow-Up [facility] [address] [place] [phone] Virgen Cordero NP POCT urinalysis dipstick manually resulted, Culture, Urine, Routine 04/04/2025 Telephone [facility] [address] [place] [address] Kadi Tomlin MD Results 03/30/2025 Telephone [facility] [address] [place] [address] Virgen Cordero NP Tracheostomy Tube Check 03/29/2025 5:00 PM EDT Office Visit [facility] [address] [place] [address] Virgen Cordero NP Chronic migraine without aura without status migrainosus, not intractable (Primary Dx); Elevated blood pressure reading in office with diagnosis of hypertension; Acute low back pain, unspecified back pain laterality, unspecified whether sciatica present; Malodorous urine 03/29/2025 Travel from Last 3 Months Immunizations Immunization Administration Dates Next Due Hep A, Adult [...] Sign Reading Time Taken Comments Blood Pressure 158/100 06/16/2025 1:24 PM EDT pt does not have meds for BP Pulse 88 06/16/2025 1:24 PM EDT Temperature 36.7 C (98 F) 06/16/2025 1:24 PM EDT Respiratory Rate 18 06/16/2025 1:24 PM EDT Oxygen Saturation 98% 06/16/2025 1:2 4 PM EDT Inhaled Oxygen Concentration - - Weight 80.7 kg (178 lb) 06/16/2025 1:24 PM EDT Height 162.6 cm (5' 4 ) 06/16/2025 1:24 PM EDT Body Mass Index 30.55 06/16/2025 1:24 PM EDT Plan of Treatment Upcoming Encounters Date Type Department Care Team (Late st Contact Info) Description 08/28/2025 2:15 PM EST Office Visit [facility] [address] [place] [address] Kadi Tomlin MD [address] [place] [address] Health Maintenance Due Date Last Done Comments CT Colonography 1967 FIT DNA/Cologuard 1967 FIT 1967 FOBT 1965 Sigmoidoscopy 1967 Disability Screening 1967 Alcohol/Substance Use Screening 1979 Pneumococcal Vaccine: 50+ Years (1 of 2 - PCV) 1986 Mammogram 07/14/2024 07/14/2023, 04/22, 05/15/2020, Additional history exists Depression Monitoring 09/28/2024 03/28/2024, 024 COVID-19 Vaccine ( season) 2025 05/05/2022, 05/05/2022, 11/18/2021, Additional history exists Influenza Vaccine (#1) 2025 5, 06/24/2023, 09/29/2022, Additional history exists Colonoscopy 06/09/2025 06/09/2024, 09/07/2018 Colorectal Cancer Screening 06/09/2025 Lipid Panel 08/21/2025 08/21/2020 SDOH Screening 10/28/2025 10/28/2024 Cervical Cancer Screening 11/04/2025 Pap Smear 11/04/2025 11/04/2024 Tobacco Screening 06/16/2026 06/16/2025 HPV/Cotest 11/04/2029 11/04/2024, 07/02/2017 DTaP/Tdap/Td Vaccines (4 [...] Procedure Name Priority Date/Time Associated Diagnosis Comments CULTURE, URINE, ROUTINE Routine 03/29/2025 6:05 PM EDT Malodorous urine POCT URINALYSIS DIPSTICK Routine 03/29/2025 5:58 PM EDT Acute low back pain, unspecified back pain laterality, unspecified whether sciatica present Malodorous urine HPV DNA, LOW/HIGH RISK Routine 12:00 AM EST PAP SMEAR Routine 11/04/2024 12:00 AM EST HM COLONOSCOPY Routine 06/09/2024 11:24 AM EDT BI MAMMOGRAM SCREENING TOMOSYNTHESIS BILATERAL Routine 07/14/2023 3:15 PM EDT HIV 1/2 ANTIGEN/ANTIBODY, FOURTH GENERATION W/RFL Routine 08/21/2020 11:31 AM EST LIPID PANEL, STANDARD Routine 08/21/2020 11:31 AM EST from Last 3 Months or Most Recently Relevant to Health Maintenance Results * Culture, Urine, Routine (03/29/2025 6:05 PM EDT) Urine Urine specimen obtained by clean catch procedure / Unknown 03/29/2025 6:05 PM EDT 03/30/2025 12:11 PM EDT Comment:[facility] - 04/01/2025 7:30 AM EDT Klebsiella pneumoniae Quant > 100,000 cfu/mL Klebsiella pneumoniae: Ampicillin >=32(R) Klebsiella pneumoniae: Cefazolin 4(I) Klebsiella pneumoniae: Cefepime <=0.12(S) Klebsiella pneumoniae: Ceftriaxone <=0.25(S) Klebsiella pneumoniae: Ciprofloxacin <=0.06(S) Klebsiella pneumoniae: Gentamicin <=1(S) Klebsiella pneumoniae: Nitrofurantoin 64(I) Klebsiella pneumoniae: Trimethoprim/Sulfamethoxazole >=320(R) Specimen Source: Urine clean catch us Virgen Cordero NP LAB MICROBIOLOGY - GENERAL PARDEEP AGUIRRE Final Result [facility] [address] [place] [phone] * POCT urinalysis dipstick manually resulted (03/29/2025 5:58 PM EDT) Color, UA Yellow Clarity, UA Clear Glucose, UA Negative Bilirubin, UA Negative Ketones, UA Negative Spec Grav, UA 1.015 Blood, UA Negative Negative, None Detected pH, UA 7.5 Protein, UA Negative Urobilinogen, UA 0.2 Leukocytes, UA Negative Negative, Rare, Trace Nitrite, UA Negative Negative, None Detected Urine 03/29/2025 5:58 PM EDT Virgen Cordero NP POINT OF CARE TEST ENTER/EDIT O RDERABLES Final Result * (ABNORMAL) HPV DNA, Low/High Risk (11/04/2024 12:00 AM EST) HPV High Risk Positive(A) Negative [facility] HPV Genotype 16 Negative Negative [facility] HPV Genotype 18 Negative Negative [facility] Comment:HPV testing performe d at [facility] (CLIA#[id number]), [address] [place] [address].Testing for HPV was performed using the Rivera [...] MD LAB BLOOD ORDERABLES Final Res ult [facility] [address] [place] [phone] * Pap Smear (11/04/2024 12:00 AM EST) 11/04/2024 11/08/2024 8:4 5 AM EST Narrative [facility] - 11/11/2024 4:30 PM EST ----- ------- Name: Danika Morales Age/Sex: 59/F : 1965 Unit#: [id number] Attend Dr: Kadi Tomlin Re11/04/24 Status: [facility] ----- ------- SPEC : [id number] RECD: 11/08/24 STATUS: WESLY THAYER NUM: [id number] MARY: 11/04/24-[address]: Kadi Tomlin ENTERED: 11/08/24 SP TYPE: Pap Smr [facility] DR: ORDERED: Pap Smear Interpretation Satisfactory for evaluation. Negative for intraepithelial lesion or malignancy. No endocervical cells seen. HPV High Risk: Positive HPV Genotyping 16: Negative HPV Genotyping 18: Negative Clinical Information LMP:Post-menopausal Previous PAP test: NILM Other surgery: Other history: Material Received ThinPrep-Cervical ----- ------- Signed (signature on file) Jillian Ulloajanina, CT ([facility]) 11/11/24 1630 ----- ------- END OF REPORT Kadi Tomlin MD LAB CYTOLOGY ORDERABLES Final Result [facility] [address] [place] [address] [phone] * Hm Colonoscopy (06/09/2024 11:24 AM EDT) Historical Provider HEALTH MAINTENANCE Final Result * BI Mammogram Screening Tomosynthesis Bilateral (07/14/2023 3:15 PM EDT) Anatomical Region Laterality Modality Breast Bilateral Mammography 07/14/2023 3:15 PM EDT Narrative 08/01/2023 1:28 PM EST [address] [place] [address] Mammography Report Signed Patient: Danika Morales MR#: [id number] 2 : 1965 Acct:[id number] Age/Sex: 57 / F ADM Date: 07/14/23 Loc: [facility] Attending Dr: Kadi Tomlin MD Ordering Physician: Kadi Tomlin Results: 1Negative Date of Service: 07/14/23 Follow Up: 1 Year From Orig inal Mammogram Procedure(s): MM tomosynthesis screening BI Accession Number(s): [id number] cc: Kadi Tomlin EXAMINATION: MM SCREENING DIGITAL [...] in OV> 08/01/23 1324 DD/ 1515 TD/TT: Cooker Cleaner: Procedure Note Donotuseinterpreter, Image - 08/01/2023 [facility] [address] [place], [place] [address] Mammography Report Signed Patient: Koby Morales#: [id number] 2 : 1965Acct:[id number] Age/Sex: 57 / FADM Date: 07/14/23 Loc: [facility] Attending Dr: Kadi Tomlin MD Ordering Physician: Khadar Tomlinults: 1Negative Date of Service: 07/14/23Follow Up: 1 Year From Orig inal Mammogram Procedure(s): MM tomosynthesis screening BI Accession Number(s): [id number] cc: Kadi Tomlin EXAMINATION: MM SCREENING DIGITAL [...] in OV> 08/01/23 1324 DD/ 1515 TD/TT: Cooker Cleaner: Kadi Tomlin MD IM BI PROCEDURES Edited Resul t - Final * HIV 1/2 ANTIGEN/ANTIBODY,FOURTH GENERATION W/RFL (08/21/2020 11:31 AM EST) HIV-1/2 ANTIGEN AND ANTIBODIES, 4TH GENERATION W/ REFLEX NON-REACT DINORA NON-REACT DINORA [facility] Comment: HIV-1 antigen and HIV-1/HIV-2 antibodies were not detected. There is no laboratory evidence of HIV infection. PLEASE NOTE: This information has been disclosed to you from records whose confidentiality may be protected by state law. If your state requires such protection, then the state law prohibits you from making any further disclosure of the information without the specific written consent of the person to whom it pertains, or as otherwise permitted by law. A general authorization for the release of medical or other information is NOT sufficient for this purpose. For additional information please refer to http://education.Action Engine.Spark/faq/JMJ397 (This link is being provided for informational/ educational purposes only.) The performance of this assay has not been clinically validated in patients less than 2 years old. HIV-1/2 ANTIGEN AND ANTIBODIES, 4TH GENERATION W/ REFLEX NON-REACT DINORA NON-REACT DINORA [facility] Comment: HIV-1 antigen and HIV-1/HIV-2 antibodies were not detected. There is no laboratory evidence of HIV infection. PLEASE NOTE: This information has been disclosed to you from records whose confidentiality may be protected by state law. If your state requires such protection, then the state law prohibits you from making any further disclosure of the information without the specific written consent of the person to whom it pertains, or as otherwise permitted by law. A general authorization for the release of medical or other information is NOT sufficient for this purpose. For additional information please refer to http://Ozsale.SigmaFlow/faq/CMJ942 (This link is being provided for informational/ educational purposes only.) The performance of this assay has not been clinically validated in patients less than 2 years old. 08/21/2020 11:3 1 AM EST us Shantelle Adame MD LAB BLOOD ORDERABLES Final Re sult [facility] [address] * (ABNORMAL) LIPID PANEL, STANDARD (08/21/2020 11:31 AM EST) Chol/HDLC Ratio 3.8 <5.0 (calc) [facility] Cholesterol, Total 228(H) <200 mg/dL [facility] HDL Cholesterol 60 > OR = 50 mg/dL [facility] LDL Cholesterol 139(H) mg/dL (calc) [facility] Comment: Reference range: <100 Desirable range <100 mg/dL for primary prevention; <70 mg/dL for patients with CHD or diabetic patients with > or = 2 CHD risk factors. LDL-C is now calculated using the Alistair-Perez calculation, which is a validated novel method providing better accuracy than the Friedewald equation in the estimation of LDL-C. Alistair DELAROSA et al. CANDI. 2013;310(19): 1855-5772 (http://education.Huy [place].Spark/faq/YBS343) Non-HDL Cholesterol 168(H) <130 mg/dL (calc) [facility] Comment: For patients with diabetes plus 1 major ASCVD risk factor, treating to a non-HDL-C goal of <100 mg/dL (LDL-C of <70 mg/dL) is considered a therapeutic option. Triglycerides 156(H) <150 mg/dL [facility] Chol/HDLC Ratio 3.8 <5.0 (calc) [facility] Cholesterol, Total 228(H) <200 mg/dL [facility] HDL Cholesterol 60 > OR = 50 mg/dL [facility] LDL Cholesterol 139(H) mg/dL (calc) [facility] Comment: Reference range: <100 Desirable range <100 mg/dL for primary prevention; <70 mg/dL for patients with CHD or diabetic patients with > or = 2 CHD risk factors. LDL-C is now calculated using the Alistair-Perez calculation, which is a validated novel method providing better accuracy than the Friedewald equation in the estimation of LDL-C. Alistair SS et al. CANDI. 2013;310(19): 5087-8907 (http://education.Huy [place].Spark/faq/PJJ928) Non-HDL Cholesterol 168(H) <130 mg/dL (calc) [facility] Comment: For patients with diabetes plus 1 major ASCVD risk factor, treating to a non-HDL-C goal of <100 mg/dL (LDL-C of <70 mg/dL) is considered a therapeutic option. Triglycerides 156(H) <150 mg/dL [facility] Chol/HDLC Ratio 3.8 <5.0 (calc) [facility] Cholesterol, Total 228(H) <200 mg/dL [facility] HDL Cholesterol 60 > OR = 50 mg/dL [facility] LDL Cholesterol 139(H) mg/dL (calc) [facility] Comment: Reference range: <100 Desirable range <100 mg/dL for primary prevention; <70 mg/dL for patients with CHD or diabetic patients with > or = 2 CHD risk factors. LDL-C is now calculated using the Alistair-Perez calculation, which is a validated novel method providing better accuracy than the Friedewald equation in the estimation of LDL-C. Alistair SS et al. CANDI. 2013;310(19): 6126-0511 (http://education.Huy [place].Spark/faq/WGR222) Non-HDL Cholesterol 168(H) <130 mg/dL (calc) [facility] Comment: For patients with diabetes plus 1 major ASCVD risk factor, treating to a non-HDL-C goal of <100 mg/dL (LDL-C of <70 mg/dL) is considered a therapeutic option. Triglycerides 156(H) <150 mg/dL [facility] 08/21/2020 11:3 1 AM EST us Shantelle Adame MD LAB BLOOD ORDERABLES Final Re sult [facility] [address] from Last 3 Months or Most Recently Relevant to Health Maintenance Insurance [facility] C3 Care Teams Lead Accountant Relationship Specialty Start Date End Date Kadi Tomlin MD [address] [place] [address] [place] [phone] PCP - General Family Medicine 05/21/21
[2025-06-22 15:32] VITALS: BP 115/67; PULSE 56; RESP 16; TEMP 36.4; O2SAT 100
--- OUTSIDE RECORDS SUMMARY | 2025-06-22 15:32 | XMS_ITS | Encounter Summary ---
Author Organization [facility] Address [address] [place] [address] [address] [place] [address] Care Team Providers Care Trestle Builder Name Role Phone Kadi Tomlin MD Primary Care Provider Encounter Details Date Type Department Care Team ([facility] Contact Info) Description 05/28/2023 Orders Only [facility] [address] [place] [address] [phone] ProviderTracey MD Social History Tobacco Use Types [...] Department Care Team (Late Contact Info) Description 08/28/2025 2:15 PM EST Office Visit [facility] [address] [place] [address] [phone] Kadi Tomlin MD [address] [place] [address] [phone] documented as of this encounter Procedures Procedure [...] documented as of this encounter Care Teams Trestle Builder Relationship Specialty Start Date End Date Kadi Tomlin MD [address] [place] [address] PCP - General Family Medicine 05/21/21 documented as of this encounter
--- OUTSIDE RECORDS SUMMARY | 2025-06-22 15:32 | XMS_ITS | Encounter Summary ---
Author Organization [employer] Address [address] [facility] 7t [place] [address] Care Team Providers Care Bed Laster Name Role Phone Kadi Tomlin MD Primary Care Provider [phone] Encounter Details Date Type Department Care Team (Late Contact Info) Description 06/19/2023 Orders Only [facility] MEDICINE [address] [place] [address] [phone] Kadi Tomlin MD [address] [place] [address] [phone] Social History Tobacco Use Types Packs/Day Years [...] Description 08/28/2025 2:15 PM EST Office Visit [facility] MED[facility]INE [address] [place] [address] [phone] Kadi Tomlin MD [address] [place] [address] [phone] documented as of this encounter Visit Diagnoses Not on filedocumented in this encounter Additional Health Concerns Assessment Noted Time PHQ-9 Depression Total Score: 7 05/18/20 23 3:02 PM EDT documented as of this encounter Care Teams Bed Laster Relationship Specialty Start Date End Date Kadi Tomlin MD [address] [place] [address] PCP - General Family Medicine 05/21/21 documented as of this encounter
--- OUTSIDE RECORDS SUMMARY | 2025-06-22 15:32 | XMS_ITS | Encounter Summary ---
Author Organization [employer] Address [address] [facility] 7t [place] [address] Care Team Providers Care Senior Financial Reporting Accountant Name Role Phone Kadi Tomlin MD Primary Care Provider [phone] Reason for Visit * Reason Onset Date Comments Nurse Triage 04/05/2024 Encounter Details Date Type Department Care Team (Late st Contact Info) Description 04/05/2024 Telephone [facility] MEDICINE [address] [place], [place] [phone] Kadi Tomlin MD [address] [place], [place] [phone] Nurse Triage Social History Tobacco Use Types [...] 04/05/2024 12:14 PM EDT Triage call with [employer] Maintenance Supervisor ID [id number] Pt reports low blood pressure of 106/80 [...] fordays. Pt is advised to come to [facility] today to be seen by provider and [...] accepted this outcome Please contact pt @ [phone] Mohawk Speaker documented in this encounter Plan of Treatment Upcoming Encounters Date Type Department Care Team (Late st Contact Info) Description 08/28/2025 2:15 PM EST Office Visit [facility] MEDICINE [address] [place] [address] Kadi Tomlin MD [address] [place] [address] documented as of this encounter Visit Diagnoses Not on filedocumented in this encounter Additional Health Concerns Assessment Noted Time PHQ-9 Depression Total Score: 15 024 9:17 AM EDT documented as of this encounter Care Teams Senior Financial Reporting Accountant Relationship Specialty Start Date End Date Kaid Tomlin MD [address] [place] [address] PCP - General Family Medicine 05/21/21 documented as of this encounter
--- OUTSIDE RECORDS SUMMARY | 2025-06-22 15:32 | XMS_ITS | Encounter Summary ---
Author Organization [employer] Address [address] [facility] 7t [place] [address] Care Team Providers Care Network Systems Analyst Name Role Phone Kadi Tomlin MD Primary Care Provider [phone] Encounter Details Date Type Department Care Team (Late st Contact Info) Description 11/28/2022 Orders Only [facility] MEDICINE [address] [place], [place] [phone] Kadi Tomlin MD [address] [place], [place] [phone] Other hyperlipidemia (Primary Dx); Pain of lower [...] Description 08/28/2025 2:15 PM EST Office Visit [facility] MEDICINE [address] [place] [address] Kadi Tomlin MD [address] [place] [address] documented as of this encounter Procedures Procedure [...] AM EDT Narrative 12/17/2022 8:44 AM EDT [address] [address] XRay Report Signed Patient: Danika Morales MR#: [id number] 2 : 1965 Acct:[id number] Age/Sex: 57 / F ADM Date: 12/10/22 Loc: RAYO Attending Dr: Kadi Tomlin MD Ordering Physician: Kadi Tomlin Date of Service: 12/10/22 Procedure(s): XR wrist LT min 3V Accession Number(s): [id number] cc: Kadi Tomlin EXAMINATION: XR ELBOW, LEFT [...] in OV> 12/17/22 0841 DD/ 1048 TD/TT: Corporate Associate: [facility] Procedure Note Donotuseinterpreter, Image - 01/05/2023 [place] [address] XRay Report Signed Patient: Koby Morales#: [id number] 2 : 1965Acct:[id number] Age/Sex: 57 / FADM Date: 12/10/22 Loc: HO.GLADIS Attending Dr: Kadi Tomlin MD Ordering Physician: Kadi Tomlin Date of Service: 12/10/22 Procedure(s): XR wrist LT min 3V Accession Number(s): [id number] cc: Kadi Tomlin EXAMINATION: XR ELBOW, LEFT [...] by Nick Chino MD in OV> 12/17/22 08 DD/ 1048 TD/TT: Corporate Associate: [facility] External Provider IMG XR PROCEDURES Final Result * XR Elbow 1-2 Views Left (12/10/2022 10:48 AM EDT) Anatomical Region Laterality Modality Upper Extremities, Elbow Left Radiogr aphic Imaging 12/10/2022 10:4 8 AM EDT Narrative 12/17/2022 8:44 AM EDT [place] [address] XRay Report Signed Patient: Danika Morales MR#: [id number] 2 : 1965 Acct:[id number] Age/Sex: 57 / F ADM Date: 12/10/22 Loc: RAYO Attending Dr: Kadi Tomlin MD Ordering Physician: Kadi Tomlin Date of Service: 12/10/22 Procedure(s): XR elbow LT 2V Accession Number(s): [id number] cc: Kadi Tomlin EXAMINATION: XR ELBOW, LEFT [...] in OV> 12/17/22 0841 DD/ 1048 TD/TT: Corporate Associate: [employer] Procedure Note Donotuseinterpreter, Image - 12/17/[address] [address] XRay Report Signed Patient: Koby Morales#: [id number] 2 : 1965Acct:[id number] Age/Sex: 57 / FADM Date: 12/10/22 Loc: HO.GLADIS Attending Dr: Kadi Tomlin MD Ordering Physician: Kadi Tomlin Date of Service: 12/10/22 Procedure(s): XR elbow LT 2V Accession Number(s): [id number] cc: Kadi Tomlin EXAMINATION: XR ELBOW, LEFT [...] in OV> 12/17/22 0841 DD/ 1048 TD/TT: Corporate Associate: [facility] External Provider IMG XR PROCEDURES Final Result * XR Shoulder 2+ Views Left (12/10/2022 10:48 AM EDT) Anatomical Region Laterality Modality Upper Extremities, Shoulder Left Radi ographic Imaging 12/10/2022 10:4 8 AM EDT Narrative 12/17/2022 8:44 AM EDT [address] [address] XRay Report Signed Patient: Danika Morales MR#: [id number] 2 : 1965 Acct:[id number] Age/Sex: 57 / F ADM Date: 12/10/22 Loc: RAYO Attending Dr: Kadi Tomlin MD Ordering Physician: Kadi Tomlin Date of Service: 12/10/22 Procedure(s): XR shoulder LT min 2V Accession Number(s): [id number] cc: Kadi Tomlin EXAMINATION: XR ELBOW, LEFT [...] in OV> 12/17/22 0841 DD/ 1048 TD/TT: Corporate Associate: [facility] Procedure Note Donotuseinterpreter, Image - 12/17/[address] [address] XRay Report Signed Patient: Jess MoralesR#: [id number] 2 : 1965Acct:[id number] Age/Sex: 57 / FADM Date: 12/10/22 Loc: RAYO Attending Dr: Kadi Tomlin MD Ordering Physician: Kadi Tomlin Date of Service: 12/10/22 Procedure(s): XR shoulder LT min 2V Accession Number(s): [id number] cc: Kadi Tomlin EXAMINATION: XR ELBOW, LEFT [...] in OV> 12/17/22 0841 DD/ 1048 TD/TT: Corporate Associate: [facility] External Provider IMG XR PROCEDURES Final Result documented in this encounter Visit Diagnoses Diagnosis Other hyperlipidemia- Primary Pain of lower extremity, unspecified laterality documented in this encounter Additional Health Concerns Assessment Noted Time PHQ-9 Depression Total Score: 7 11/11/19 23 8:54 AM EST documented as of this encounter Care Teams Network Systems Analyst Relationship Specialty Start Date End Date Kadi Tomlin MD [address] [place] [phone] PCP - General Family Medicine 05/21/21 documented as of this encounter
--- OUTSIDE RECORDS SUMMARY | 2025-06-22 15:32 | XMS_ITS | Encounter Summary ---
Author Organization [employer] Address [address] [place] [address] 7t [place] [address] Care Team Providers Care Washerette Machine Operator Name Role Phone Kadi Tomlin MD Primary Care Provider [phone] Reason for Visit * Reason Comments Med Refill Encounter Details Date Type Department Care Team (Late Contact Info) Description 03/25/2023 Refill [facility] MED & PEDS [address] [place], [place] [phone] Enoc Boles FNP Depressive disorder Social History [...] Description 08/28/2025 2:15 PM EST Office Visit [facility] MEDICINE [address] [place] [address] Kadi Tomlin MD [address] [place], [place] [phone] documented as of this encounter Visit Diagnoses Diagnosis Depressive disorder Depressive disorder, not elsewhere classified documented in this encounter Additional Health Concerns Assessment Noted Time PHQ-9 Depression Total Score: 9 01/09/20 23 9:12 AM EDT documented as of this encounter Care Teams Washerette Machine Operator Relationship Specialty Start Date End Date Kadi Tomlin MD [address] [place] [address] PCP - General Family Medicine 05/21/21 documented as of this encounter
--- OUTSIDE RECORDS SUMMARY | 2025-06-22 15:32 | XMS_ITS | Encounter Summary ---
Author Organization [employer] Address [address] [place] [address] 7t [place] [address] Care Team Providers Care Assistant Foreman Name Role Phone Kadi Tomlin MD Primary Care Provider [phone] Reason for Visit * Reason Onset Date Comments Appointment Request 03/27/2023 Encounter Details Date Type Department Care Team (Late Contact Info) Description 03/27/[address] [facility] MEDICINE [address] [place], [place] [phone] Kadi Tomlin MD [address] [place], [place] [phone] Appointment Request Social History Tobacco Use Types [...] with Enoc Boles. Please contact pt at [phone] documented in this encounter Plan of Treatment Upcoming Encounters Date Type Department Care Team (Late Contact Info) Description 08/28/2025 2:15 PM EST Office Visit [facility] MEDICINE [address] [place] [address] Kadi Tomlin MD [address] [place] [address] documented as of this encounter Visit Diagnoses Not on filedocumented in this encounter Additional Health Concerns Assessment Noted Time PHQ-9 Depression Total Score: 9 01/09/20 23 9:12 AM EDT documented as of this encounter Care Teams Assistant Foreman Relationship Specialty Start Date End Date Kadi Tomlin MD [address] [place], [place] [phone] PCP - General Family Medicine 05/21/21 documented as of this encounter
--- OUTSIDE RECORDS SUMMARY | 2025-06-22 15:32 | XMS_ITS | Encounter Summary ---
Author Organization [employer] Address [address] [place] [address] 7t [place] [address] Care Team Providers Care Hand Picker Name Role Phone Kadi Tomlin MD Primary Care Provider [phone] Reason for Visit * Reason Onset Date Comments Appointment Request 12/25/2022 Encounter Details Date Type Department Care Team (Late st Contact Info) Description 12/25/2022 Telephone [facility] [address] [place], [place] [phone] Kadi Tomlin MD [address] [place], [place] [phone] Appointment Request Social History Tobacco Use Types [...] schedule an appt Please contact pt at [phone] documented in this encounter Plan of Treatment Upcoming Encounters Date Type Department Care Team (Late st Contact Info) Description 08/28/2025 2:15 PM EST Office Visit [facility] [address] [place] [address] Kadi Tomlin MD [address] [place], [place] [phone] documented as of this encounter Visit Diagnoses Not on filedocumented in this encounter Additional Health Concerns Assessment Noted Time PHQ-9 Depression Total Score: 7 11/11/19 23 8:54 AM EST documented as of this encounter Care Teams Hand Picker Relationship Specialty Start Date End Date Kadi Tomlin MD [address] [place], [place] [phone] PCP - General Family Medicine 05/21/21 documented as of this encounter
--- OUTSIDE RECORDS SUMMARY | 2025-06-22 15:32 | XMS_ITS | Encounter Summary ---
Author Organization [employer] Address [address] [facility] 7t [place] [address] Care Team Providers Care Admitting Supervisor Name Role Phone Kadi Tomlin MD Primary Care Provider [phone] Encounter Details Date Type Department Care Team (Late st Contact Info) Description 08/17/2023 Abstract [facility] MEDICINE [address] [place] [phone] Denisse Castillo Social History Tobacco Use Types [...] Description 08/28/2025 2:15 PM EST Office Visit [facility] MEDICINE [address] [place] [address] Kadi Tomlin MD [address] [place] [address] documented as of this encounter Visit Diagnoses Not on filedocumented in this encounter Additional Health Concerns Assessment Noted Time PHQ-9 Depression Total Score: 9 07/20/20 23 2:18 PM EDT documented as of this encounter Care Teams Admitting Supervisor Relationship Specialty Start Date End Date Kadi Tomlin MD [address] [place] [address] PCP - General Family Medicine 05/21/21 documented as of this encounter
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
[2025-06-22 17:54] VITALS: BP 115/67; PULSE 56; RESP 16; TEMP 36.4; O2SAT 100
== END 2025-06-22 17:54 | disposition home or self-care (01) ==
PROVIDERS: Emergency Provider Emergency Medicine Emergency Medical Services
DX: S39.012A Strain of muscle, fascia and tendon of lower back, initial encounter (principal); R51.9 Headache, unspecified; M54.2 Cervicalgia; R42 Dizziness and giddiness; X58.XXXA Exposure to other specified factors, initial encounter; Y93.9 Activity, unspecified; Y92.9 Unspecified place or not applicable; Y99.8 Other external cause status
CPT/HCPCS: 70450; 72125; 99284

== ENCOUNTER → 2025-06-22 15:45 | Outpatient (BNV) | payer MEDICAID, SELFPAY | PROVIDERS: Emergency Provider Emergency Medicine Emergency Medical Services; Visit Provider Radiology Diagnostic Radiology | DX: M40.202 Unspecified kyphosis, cervical region (principal); S09.90XA Unspecified injury of head, initial encounter; D35.4 Benign neoplasm of pineal gland | CPT/HCPCS: 70450; 72125 ==

== ENCOUNTER 2025-07-29 11:08 | Emergency (ER) | payer MEDICAID, SELFPAY ==
--- NOTE | ~2025-07-29 | XR_ITS ---
CLINICAL HISTORY: fall 3 view right shoulder Comparison: None provided Findings: Bones intact. No dislocations. No significant arthritic change. No erosions. No radiopaque foreign body. IMPRESSION: 1. No acute findings This document has been electronically signed by: Hung Bull MD on 07/29/2025 12:45:27
--- NOTE | ~2025-07-29 | XR_ITS ---
CLINICAL HISTORY: fall 4 view left knee Comparison: 06/02/2023 Findings: No fractures or dislocations. There are minor degenerative changes. No joint effusion. No radiopaque foreign body. IMPRESSION: 1. No acute findings. This document has been electronically signed by: Hung Bull MD on 07/29/2025 12:47:30
--- NOTE | ~2025-07-29 | CT_ITS ---
CLINICAL HISTORY: fall neck pain CT cervical spine without contrast Comparison: 06/22/2025 Findings: Normal limited view of the intracranial contents. Soft tissues of the neck are normal. Normal vertebral body alignment. No fractures or dislocations. Left-sided facet arthropathy is most significant at C3-4 level.. Impression: 1. No cervical vertebral fracture or traumatic malalignment. This document has been electronically signed by: Matias Damon MD on 07/29/2025 13:00:23
--- NOTE | ~2025-07-29 | CT_ITS ---
CLINICAL HISTORY: fall head strike CT head without contrast Comparison: 06/22/2025 Findings: No intracranial mass, midline shift, hydrocephalus, or acute hemorrhage. No CT evidence of acute ischemia. Visualized paranasal sinuses and mastoid air cells normal. Orbits unremarkable. No skull fracture. Impression: 1. No acute intracranial abnormalities. This document has been electronically signed by: Matias Damon MD on 07/29/2025 13:01:16
[2025-07-29 11:27] VITALS: BP 115/77; PULSE 95; RESP 18; TEMP 36.3; O2SAT 98; BMI 30.5
[2025-07-29 12:11] LABS: MANUAL DIFF FLAG NO
[2025-07-29 12:12] LABS: Hematocrit 26.6 % (37.0-47.0); Hemoglobin 8.2 g/dl (12.0-16.0); Imm Gran Abs Auto 0.02 X10*3/uL (0.00-0.03); Imm Gran Pct Auto 0.3 % (0.0-0.4); Lymphocytes Absolute Auto 2.3 X10*3/uL (1.2-4.9); Mean Corpuscular HGB Conc 30.8 g/dl (31.0-35.0); Mean Corpuscular Hemoglobin 22.5 pg (27.0-33.0); Mean Corpuscular Volume 73.1 fL (80.0-98.0); NRBC Abs Auto 0.000 X10*3/uL (0.0-0.012); NRBC Pct Auto 0.0 /100WBC (0.0-0.2); Platelet Count 308 X10*3/uL (160-400); Red Blood Count 3.64 X10*6/uL (4.20-5.50); White Blood Count 7.4 X10*3/uL (4.8-10.8)
[2025-07-29 12:25] LABS: Alanine Aminotransferase 26 U/L (0-31); Albumin Level 4.2 g/dL (3.5-5.0); Alkaline Phosphatase 134 U/L (39-117); Anion Gap 15 (12-20); Aspartate Amino Transferase 33 U/L (5-31); Blood Urea Nitrogen 13 mg/dL (9-16); Calcium 9.8 mg/dL (8.4-10.2); Carbon Dioxide 24 mmol/L (22-29); Chloride 104 mmol/L (96-108); Creatinine Clr Calc Pharmacy 61.2; Estimated Glomerular Filt Rate 55; Potassium 3.5 mmol/L (3.3-5.1); Sodium 139 mmol/L (135-145); Total Protein 7.4 g/dL (6.5-8.0)
--- OUTSIDE RECORDS SUMMARY | 2025-07-29 13:41 | XMS_ITS | Encounter Summary ---
Author Organization [employer] Address [address] [facility] [address] [place] [address] Care Team Providers Care Application Systems Engineer Name Role Phone Kadi Tomlin MD Primary Care Provider [phone] Encounter Details Date Type Department Care Team (Late st Contact Info) Description 11/03/2024 Orders Only [facility] [address] [place], [place] [id number] ProviderTracey MD Social History Tobacco Use Types [...] Office Visit [facility] [address] [place] [phone] Kadi Tomlin MD [address] [place] [id number] documented as of this encounter Procedures Procedure [...] documented as of this encounter Care Teams Application Systems Engineer Relationship Specialty Start Date End Date Kadi Tomlin MD [address] [place] [phone] PCP - General Family Medicine 05/21/21 documented as of this encounter
--- OUTSIDE RECORDS SUMMARY | 2025-07-29 13:41 | XMS_ITS | Clinical Summary ---
Author Organization [employer] Address [address] [address] [place] [address] Care Team Providers Care Shipping And Receiving Weigher Name Role Phone Kadi Tomlin MD Primary Care Provider [phone] Allergies No known active allergies Medications * [...] 02/12/20 24 Active cloNIDine (Catapres) 0.1 MG tabletIndication [...] 10/18/19 25 Active zolpidem (Ambien) 5 MG tabletIndication s:Depressive disorder Take 1 tablet (5 mg) by mouth if needed at bedtime for sleep. 30 tablet 5 11/29/19 25 Active NIFEdipine XL (Procardia XL) 30 MG 24 hr tablet TAKE 1 TABLET BY MOUTH EVERY MORNING. DO NOT BREAK, CRUSH, DISSOLVE OR CHEW. 90 tablet 3 12/01/19 25 Active lisinopril 40 MG tabletIndication s:Benign hypertension TAKE 1 TABLET BY MOUTH EVERY MORNING 90 tablet 3 12/01/19 25 Active amitriptyline (Elavil) 25 MG tablet TAKE 1 OR 2 TABLETS BY MOUTH AT BEDTIME 180 tablet 2 12/16/19 25 Active omeprazole (PriLOSEC) [address] capsule Take 1 capsule (20 mg) by mouth 2 times daily. Do not crush or chew. 180 capsule 3 01/07/20 25 026 Active escitalopram (Lexapro) 10 MG tabletIndication s:Depressive disorder TAKE 1 TABLET BY MOUTH IN THE MORNING 90 tablet 03/14/20 25 Active busPIRone (Buspar) 30 MG tabletIndication s:Depressive disorder TAKE 1 TABLET BY MOUTH TWICE DAILY NEEDED FOR ANXIETY 60 tablet 04/25/20 25 Active cholecalciferol VITAMIN D (Vitamin D-3) 50 MCG (1999 UT) tabletIndication s:Vitamin D deficiency TAKE 1 TABLET BY MOUTH EVERY DAY 90 tablet 3 06/02/20 25 Active SUMAtriptan (Imitrex) 100 MG tabletIndication s:Chronic migraine without aura without status migrainosus, not intractable TAKE 1 TABLET BY MOUTH ONCE NEEDED FOR MIGRAINE, TAKE WITH naproxen 9 tablet 3 06/15/20 25 Active butalbital-aceta minophen-caffein e 50-325-40 MG tabletIndication s:Chronic migraine without aura without status migrainosus, not intractable Take 1 tablet by mouth Once daily as needed for migraine (limit to 2 doses per week to avoid rebound headache) for up to 15 doses. 15 tablet 06/16/20 25 Active cyclobenzaprine (Flexeril) 10 MG tabletIndication s:Acute bilateral low back pain without sciatica Take 1 tablet (10 mg) by mouth 3 times daily for 10 days. 30 tablet 06/16/20 25 Active lidocaine (Lidoderm) 5 % patchIndications :Acute bilateral low back pain without sciatica Apply 1 patch topically Once per day. Remove & discard patch within 12 hours or as directed by MD. 30 patch 1 06/16/20 25 Active baclofen (Lioresal) 10 MG tablet TAKE 1 TABLET BY MOUTH THREE TIMES DAILY NEEDED FOR MUSCLE SPASMS 60 tablet 1 07/24/20 25 Active baclofen (Lioresal) 10 MG tablet TAKE 1 TABLET BY MOUTH THREE TIMES DAILY NEEDED FOR MUSCLE SPASMS 60 tablet 1 04/27/20 25 025 Discontinued Active Problems Problem Noted Date [...] resolved by tomorrow morning, to come to [facility] or ER Assessment & Plan (11/04/2023 [...] and is unsure about med delivery from [place] ([facility] in [place]) as well as where her meds are [...] BP remains uncontrolled - reviewed stroke and [place] symptoms, to ER/EMS if those symptoms occur [...] retiring, patient will be transferred to new [facility] psychiatric prescriber. Pt is aware that these will be televisits and that the provider will not be an employee of [facility]. She gives permission to share PHI. Any issues or concerns, contact [facility]. All her questions were answered and I [...] now staying with mother. Will refer for SDSC support. Still doing OK with medications. Continue [...] Encounters Date Type Department Care Team Description 07/29/2025 Orders Only GENERIC EXTERNAL DATA DEPARTMENT Provider, Generic External Data 07/23/2025 Refill [facility] WALK-IN [address] [address] Kadi Tomlin MD 06/22/2025 Orders Only [facility] External Provider, [facility] 06/16/2025 1:30 PM EDT Office Visit [facility] MEDICINE [address] [place] [phone] Jennifer Mckeon MD Primary hypertension (Primary Dx); Chronic migraine without aura without status migrainosus, not intractable; Acute bilateral low back pain without sciatica 06/16/2025 Travel 06/15/2025 Telephone [facility] MEDICINE [address] [place] [phone] Kadi Tomlin MD Nurse Triage 06/14/2025 Refill [facility] W[facility] CENTER [address] [place] [address] Virgen Cordero NP Chronic migraine without aura without status migrainosus, not intractable 06/01/2025 Refill [facility] MED & PEDS [address] [place] [address] Kadi Tomlin MD Vitamin D deficiency from Last 3 Months Immunizations Immunization Administration [...] Description 08/28/2025 2:15 PM EST Office Visit [facility] MEDICINE [address] [place] [address] Kadi Tomlin MD [address] [place], [place] [phone] Health Maintenance Due Date Last Done Comments [...] Additional history exists Influenza Vaccine (#1) 2025 , 06/24/2023, 09/29/2022, Additional history exists Colonoscopy 06/09/2025 [...] Name Priority Date/Time Associated Diagnosis Comments XR KNEE 4+ VIEWS LEFT Routine 07/29/2025 12:47 PM EST XR SHOULDER 2+ VIEWS RIGHT Routine 07/29/2025 12:45 PM EST COMPREHENSIVE METABOLIC PANEL Routine 07/29/2025 12:03 PM EST CBC WITH AUTO DIFFERENTIAL Routine 07/29/2025 12:[address] HEAD WO CONTRAST Routine 06/22/2025 4 :[address] CERVICAL SPINE WO CONTRAST Routine 06/22/2025 4:04 PM EDT HPV DNA, LOW/HIGH RISK Routine 12:00 AM [...] Relevant to Health Maintenance Results * XR Knee 4+ Views Left (07/29/2025 12:47 PM EST) Anatomical Region Laterality Modality Lower Extremities, Knee Left [facility] 07/29/2025 12:4 7 PM EST Narrative 07/29/2025 12:49 PM EST [address] [address] XRay Report Signed Patient: Danika Morales MR#: [id number] 2 : 1965 Acct:[id number] Age/Sex: 59 / F ADM Date: 07/29/25 Loc: HO.ED Attending Dr: Ordering Physician: Generic ED Physician Date of Service: 07/29/25 Procedure(s): XR knee LT 4V Accession Number(s): [id number] cc: Generic ED Physician; [facility] Reason for Exam: fall CLINICAL HISTORY: fall 4 view left knee Comparison: 06/02/2023 Findings: No fractures or dislocations. There are minor degenerative changes. No joint effusion. No radiopaque foreign body. IMPRESSION: 1. No acute findings. This document has been electronically signed by: Hung Bull MD on 07/29/2025 12:47:30 Dictated By: Hung Bull MD Signed By: <Electronically signed by Hung Bull MD in OV> 07/29/25 1248 DD/ 1247 TD/TT: 07/29/25 1247 Assistant Sales Director: Procedure Note Donotuseinterpreter, Image - 07/29/[address] [address] XRay Report Signed Patient: Jess MoralesR#: [id number] 2 : 1965Acct:[id number] Age/Sex: 59 / FADM Date: 07/29/25 Loc: HO.ED Attending Dr: Ordering Physician: Generic ED Physician Date of Service: 07/29/25 Procedure(s): XR knee LT 4V Accession Number(s): [id number] cc: Generic ED Physician; [facility] Reason for Exam: fall CLINICAL HISTORY: fall 4 view left knee Comparison: 06/02/2023 Findings: No fractures or dislocations. There are minor degenerative changes. No joint effusion. No radiopaque foreign body. IMPRESSION: 1. No acute findings. This document has been electronically signed by: Hung Bull MD on 07/29/2025 12:47:30 Dictated By: Hung Bull MD Signed By: <Electronically signed by Hung Bull MD in OV> 07/29/25 1248 DD/ 1247 TD/TT: 07/29/25 1247 Assistant Sales Director: [facility] External Provider IMG XR PROCEDURES Final Result * XR Shoulder 2+ Views Right (07/29/2025 12:45 PM EST) Anatomical Region Laterality Modality Upper Extremities, Shoulder Right Radi ographic Imaging 07/29/2025 12:4 5 PM EST Narrative 07/29/2025 12:48 PM EST [place] [address] XRay Report Signed Patient: Danika Morales MR#: [id number] 2 : 1965 Acct:[id number] Age/Sex: 59 / F ADM Date: 07/29/25 Loc: HO.ED Attending Dr: Ordering Physician: Generic ED Physician Date of Service: 07/29/25 Procedure(s): XR shoulder RT min 2V Accession Number(s): [id number] cc: Generic ED Physician; [facility] Reason for Exam: fall CLINICAL HISTORY: fall 3 view right shoulder Comparison: None provided Findings: Bones intact. No dislocations. No significant arthritic change. No erosions. No radiopaque foreign body. IMPRESSION: 1. No acute findings This document has been electronically signed by: Hung Bull MD on 07/29/2025 12:45:27 Dictated By: Hung Bull MD Signed By: <Electronically signed by Hung Bull MD in OV> 07/29/25 1247 DD/ 44 TD/TT: 07/29/251244 Assistant Sales Director: Procedure Note Donotuseinterpreter, Image - 07/29/2025 [place] [address] XRay Report Signed Patient: Koby Morales#: [id number] 2 : 1965Acct:[id number] Age/Sex: 59 / FADM Date: 07/29/25 Loc: HO.ED Attending Dr: Ordering Physician: Generic ED Physician Date of Service: 07/29/25 Procedure(s): XR shoulder RT min 2V Accession Number(s): [id number] cc: Generic ED Physician; [facility] Reason for Exam: fall CLINICAL HISTORY: fall 3 view right shoulder Comparison: None provided Findings: Bones intact. No dislocations. No significant arthritic change. No erosions. No radiopaque foreign body. IMPRESSION: 1. No acute findings This document has been electronically signed by: Hung Bull MD on 07/29/2025 12:45:27 Dictated By: Hung Bull MD Signed By: <Electronically signed by Hung Bull MD in OV> 07/29/25 1247 DD/ 44 TD/TT: 07/29/251244 Assistant Sales Director: [facility] External Provider IMG XR PROCEDURES Final Result * (ABNORMAL) CBC auto differential (07/29/2025 12:03 PM EST) White Blood Count 7.4 4.8 - 10.8 X10*3/uL [facility] Red Blood Count 3.64(L) 4.20 - 5.50 X10*6/uL [facility] Hemoglobin 8.2(L) 12.0 - 16.0 g/dl [facility] Hematocrit 26.6(L) 37.0 - 47.0 % [facility] Mean Corpuscular Volume 73.1(L) 80.0 - 98.0 fL [facility] Mean Corpuscular Hemoglobin 22.5(L) 27.0 - 33.0 pg [facility] Mean Corpuscular HGB Conc 30.8(L) 31.0 - 35.0 g/dl [facility] Red Cell Distribution Width 18.2(H) 11.0 - 16.0 % [facility] Platelet Count 308 160 - 400 X10*3/uL [facility] Mean Platelet Volume 9.5 9.4 - 12.3 fL [facility] Neutrophils Percent Auto 59.6 45 - 73 % [facility] Imm Gran Pct Auto 0.3 0.0 - 0.4 % [facility] Lymphocytes Percent Auto 31.1 20 - 40 % [facility] Monocytes Percent Auto 7.1 2 - 11 % [facility] Eosinophils Percent Auto 1.4 0 - 4 % [facility] Basophils Percent Auto 0.5 0 - 2 % [facility] NRBC Pct Auto 0.0 0.0 - 0.2 /100WBC [facility] Neutrophils Absolute Auto 4.4 2.0 - 8.3 x10*3/uL [facility] Imm Gran Abs Auto 0.02 0.00 - 0.03 X10*3/uL [facility] Lymphocytes Absolute Auto 2.3 1.2 - 4.9 X10*3/uL [facility] Monocytes Absolute Auto 0.5 0.1 - 1.2 X10*3/uL [facility] Eosinophils Absolute Auto 0.1 0.0 - 0.4 X10*3/uL [facility] Basophils Absolute Auto 0.0 0.0 - 0.2 X10*3/uL [facility] NRBC Abs Auto 0.000 0.0 - 0.012 X10*3/uL [facility] 07/29/2025 12:0 3 PM EST 07/29/2025 12:07 PM EST us Generic External Data Provider LAB BLOOD ORDERAB LES Final Result [facility] [address] [place] [address] [phone] * (ABNORMAL) Comprehensive Metabolic Panel (07/29/2025 12:03 PM EST) Sodium 139 135 - 145 mmol/L [facility] Potassium 3.5 3.3 - 5.1 mmol/L [facility] Chloride 104 96 - 108 mmol/L [facility] Carbon Dioxide 24 22 - 29 mmol/L [facility] Anion Gap 15 12 - 20 [facility] Urea Nitrogen (BUN) 13 9 - 16 mg/dL [facility] Creatinine, Serum 1.04 0.5 - 1.4 mg/dL [facility] Creatinine Clr Calc Pharmacy 61.2 [facility] Comment:Provided height and weight: 162.56 cm,80.5 kg.eGFR (calculated from the MDRD study equation) and eCrCl(calculated from the Cockcroft-Gault equation) are based ondifferent parameters and may not yield comparable results.If eCrCl result is absurd, please check patient'sheight/weight. Estimated Glomerular Filt Rate 55 [facility] Comment:Chronic Kidney Disea se: Estimated GFR < 60 mL/min/1.47z6Irryqw Kidney Disease: Estimated GFR < 15 mL/min/1.73m2 Glucose 88 60 - 115 mg/dL [facility] Calcium 9.8 8.4 - 10.2 mg/dL [facility] Bilirubin, Total 0.3 0.0 - 1.0 mg/dL [facility] Aspartate Amino Transferase 33(H) 5 - 31 U/L [facility] Alanine Aminotransferase 26 0 - 31 U/L [facility] Total Protein 7.4 6.5 - 8.0 g/dL [facility] Albumin Level 4.2 3.5 - 5.0 g/dL [facility] Alkaline Phosphatase 134(H) 39 - 117 U/L [facility] 07/29/2025 12:0 3 PM EST 07/29/2025 12:07 PM EST us Generic External Data Provider LAB BLOOD ORDERAB LES Final Result Performing Organization Address City/State/[facility] Co de Phone Number [facility] [address] [place] [phone] * CT Cervical Spine w/o Contrast (06/22/2025 4:04 PM EDT) Anatomical Region Laterality Modality Spine, C-spine Computed Tomogra phy 06/22/2025 4:04 PM EDT Narrative 06/22/2025 4:49 PM EDT [address] [address] [address] Scan Report Signed Patient: Danika Morales MR#: [id number] 2 : 1965 Acct:[id number] Age/Sex: 59 / F ADM Date: 06/22/25 Loc: HO.ED Attending Dr: Ordering Physician: Sonal Sidhu Date of Service: 06/22/25 Procedure(s): CT cervical spine wo IV con Accession Number(s): [id number] cc: Sonal Sidhu; [facility] Report Number: [id number]: Total DLP = 1152.00 mGy-cm Reason for Exam: headstrike, pain EXAMINATION: CT CERVICAL SPINE WITHOUT CONTRAST CLINICAL INFORMATION: Head trauma, pain COMPARISON: X-ray on January 03, 2025 TECHNIQUE: Axial imaging was performed from the base of the skull through T2 without IV contrast. Coronal and sagittal reformatted images were generated from the original axial data set. ALARA: The examination used one or more of the following radiation dose reduction techniques: Automated exposure control, iterative reconstruction, and/or adjustment of mA and/or KV. FINDINGS: There is straightening of cervical lordosis. There are severe degenerative changes involving facets on the left at C2-3. C3-4. No fracture lines are identified. No prevertebral edema is noted. CT/CT cervical spine wo IV con IMPRESSION: There is straightening of the expected cervical lordosis. This can be idiopathic, but can also be related to degenerative change, muscle spasm, or posterior soft tissue injury. Electronically signed by: Og Gaffney MD 06/22/2025 04:46 PM EDT Dictated By: Og Gaffney MD Signed By: <Electronically signed by Og Gaffney MD in OV> 06/22/25 1646 DD/ 1604 TD/TT: 06/22/25 1637 Assistant Sales Director: Procedure Note Donotuseinterpreter, Image - 06/22/[address] [address] [address] Scan Report Signed Patient: Koby Morales#: [id number] 2 : 1965Acct:[id number] Age/Sex: 59 / FADM Date: 06/22/25 Loc: HO.ED Attending Dr: Ordering Physician: Sonal Sidhu Date of Service: 06/22/25 Procedure(s): CT cervical spine wo IV con Accession Number(s): [id number] cc: Sonal Sidhu; [facility] Report Number: [id number]: Total DLP = 1152.00 mGy-cm Reason for Exam: headstrike, pain EXAMINATION: CT CERVICAL SPINE WITHOUT CONTRAST CLINICAL INFORMATION: Head trauma, pain COMPARISON: X-ray on January 03, 2025 TECHNIQUE: Axial imaging was performed from the base of the skull through T2 without IV contrast. Coronal and sagittal reformatted images were generated from the original axial data set. ALARA: The examination used one or more of the following radiation dose reduction techniques: Automated exposure control, iterative reconstruction, and/or adjustment of mA and/or KV. FINDINGS: There is straightening of cervical lordosis. There are severe degenerative changes involving facets on the left at C2-3. C3-4. No fracture lines are identified. No prevertebral edema is noted. CT/CT cervical spine wo IV con IMPRESSION: There is straightening of the expected cervical lordosis. This can be idiopathic, but can also be related to degenerative change, muscle spasm, or posterior soft tissue injury. Electronically signed by: Og Gaffney MD 06/22/2025 04:46 PM EDT Dictated By: Og Gaffney MD Signed By: <Electronically signed by Og Gaffney MD in OV> 06/22/25 1646 DD/ 1604 TD/TT: 06/22/25 1637 Assistant Sales Director: [facility] External Provider IMG CT PROCEDURES Edited Result - Final * CT Head w/o Contrast (06/22/2025 4:04 PM EDT) Anatomical Region Laterality Modality Head, Neck Computed Tomogra phy 06/22/2025 4:04 PM EDT Narrative 06/22/2025 4:55 PM EDT [place] [address] CT Scan Report Signed Patient: Danika Morales MR#: [id number] 2 : 1965 Acct:[id number] Age/Sex: 59 / F ADM Date: 06/22/25 Loc: HO.ED Attending Dr: Ordering Physician: Sonal Sidhu Date of Service: 06/22/25 Procedure(s): CT head/brain wo IV con Accession Number(s): [id number] cc: Sonal Sidhu; [facility] Report Number: [id number]: Total DLP = 1152.00 mGy-cm Reason for Exam: headstrike, pain EXAMINATION: CT HEAD WITHOUT CONTRAST CLINICAL INFORMATION: Head trauma, pain COMPARISON: October 20, 2024 TECHNIQUE: Contiguous axial imaging was performed from [...] or head) *Use of iterative reconstruction technique FINDINGS: There is no acute ischemic change. There is no intracranial hemorrhage. There is no mass-effect or midline shift. 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 Basal cisterns and ventricles are within normal limits for age/cerebral volume. Orbits are symmetrical and unremarkable. Paranasal sinuses and mastoid air cells are pneumatized. There are no bony abnormalities. CT/CT head/brain wo IV con IMPRESSION: No acute intracranial abnormality. 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 Electronically signed by: Og Gaffney MD 06/22/2025 04:53 PM EDT RP Dictated By: Og Gaffney MD Signed By: <Electronically signed by Og Gaffney MD in OV> 06/22/25 1653 DD/ 1604 TD/TT: 06/22/25 1637 Assistant Sales Director: Procedure Note Donotuseinterpreter, Image - 06/22/[address] [place] [address] [address] Scan Report Signed Patient: Koby Morales#: [id number] 2 : 1965Acct:[id number] Age/Sex: 59 / FADM Date: 06/22/25 Loc: HO.ED Attending Dr: Ordering Physician: Sonal Sidhu Date of Service: 06/22/25 Procedure(s): CT head/brain wo IV con Accession Number(s): [id number] cc: Sonal Sidhu; [facility] Report Number: [id number]: Total DLP = 1152.00 mGy-cm Reason for Exam: headstrike, pain EXAMINATION: CT HEAD WITHOUT CONTRAST CLINICAL INFORMATION: Head trauma, pain COMPARISON: October 20, 2024 TECHNIQUE: Contiguous axial imaging was performed from [...] or head) *Use of iterative reconstruction technique FINDINGS: There is no acute ischemic change. There is no intracranial hemorrhage. There is no mass-effect or midline shift. 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 Basal cisterns and ventricles are within normal limits for age/cerebral volume. Orbits are symmetrical and unremarkable. Paranasal sinuses and mastoid air cells are pneumatized. There are no bony abnormalities. CT/CT head/brain wo IV con IMPRESSION: No acute intracranial abnormality. 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 Electronically signed by: Og Gaffney MD 06/22/2025 04:53 PM EDT RP Dictated By: Og Gaffney MD Signed By: <Electronically signed by Og Gaffney MD in OV> 06/22/25 1653 DD/ 1604 TD/TT: 06/22/25 1637 Assistant Sales Director: [facility] External Provider IMG CT PROCEDURES Edited Result - Final * (ABNORMAL) HPV DNA, Low/High Risk (11/04/2024 12:00 AM EST) HPV High Risk Positive(A) Negative [facility] HPV Genotype 16 Negative Negative [facility] HPV Genotype 18 Negative Negative [facility] Comment:HPV testing performe d at [facility] (CLIA#[id number]), [address] [place] [address].Testing for HPV was performed using the Rivera [...] MD LAB BLOOD ORDERABLES Final Res ult [facility] [address] [place] [phone] * Pap Smear (11/04/2024 12:00 AM EST) 11/04/2024 11/08/2024 8:4 5 AM EST Narrative [facility] - 11/11/2024 4:30 PM EST ----- ------- Name: Danika Morales Age/Sex: 59/F : 1965 Unit#: [id number] Attend Dr: Kadi Tomlin Re11/04/24 [facility]: ----- ------- SPEC : [id number] RECD: 11/08/24 STATUS: WESLY REAllie NUM: [id number] MARY: 11/04/24-[address]: Kadi Tomlin ENTERED: 11/08/24 SP TYPE: Pap Smr OTHR : ORDERED: Pap Smear Interpretation Satisfactory for evaluation. Negative for intraepithelial lesion or malignancy. No endocervical cells seen. HPV High Risk: Positive HPV Genotyping 16: Negative HPV Genotyping 18: Negative Clinical Information LMP:Post-menopausal Previous PAP test: NILM Other surgery: Other history: Material Received ThinPrep-Cervical ----- ------- Signed (signature on file) HUMBERTO Moreno ([facility]) 11/11/24 1630 ----- ------- END OF REPORT Kadi Tomlin MD LAB CYTOLOGY ORDERABLES Final Result [facility] [address] [place] [address] [phone] * Hm Colonoscopy (06/09/2024 11:24 AM EDT) Historical Provider HEALTH MAINTENANCE Final Result * BI Mammogram Screening Tomosynthesis Bilateral (07/14/2023 3:15 PM EDT) Anatomical Region Laterality Modality Breast Bilateral Mammography 07/14/2023 3:15 PM EDT Narrative 08/01/2023 1:28 PM EST [facility] [address] [place] [address] Mammography Report Signed Patient: Danika Morales MR#: [id number] 2 : 1965 Acct:[id number] Age/Sex: 57 / F ADM Date: 07/14/23 Loc: PARISA Attending Dr: Kadi Tomlin MD Ordering Physician: Kadi Tomlin Results: 1Negative Date of Service: 07/14/23 Follow Up: 1 Year From Orig inal Mammogram Procedure(s): MM tomosynthesis screening BI Accession Number(s): [id number] cc: Kadi Tomlin EXAMINATION: MM SCREENING DIGITAL [...] in OV> 08/01/23 1324 DD/ 1515 TD/TT: Assistant Sales Director: Procedure Note Donotuseinterpreter, Image - 08/01/2023 [facility] [address] [place] [address] Mammography Report Signed Patient: Koby Morales#: [id number] 2 : 1965Acct:[id number] Age/Sex: 57 / FADM Date: 07/14/23 Loc: PARISA Attending Dr: Kadi Tomlin MD Ordering Physician: Khadar Tomlinults: 1Negative Date of Service: 07/14/23Follow Up: 1 Year From Orig inal Mammogram Procedure(s): MM tomosynthesis screening BI Accession Number(s): [id number] cc: Kadi Tomlin EXAMINATION: MM SCREENING DIGITAL [...] in OV> 08/01/23 1324 DD/ 1515 TD/TT: Assistant Sales Director: Kadi Tomlin MD IMG BI PROCEDURES Edited Resul t - Final * HIV 1/2 ANTIGEN/ANTIBODY,FOURTH GENERATION W/RFL (08/21/2020 11:31 AM EST) HIV-1/2 ANTIGEN AND ANTIBODIES, 4TH GENERATION W/ REFLEX NON-REACT D[facility]A NON-REACT [facility] Comment: HIV-1 antigen and [...] purpose. For additional information please refer to http://education.Augmate.Actionsoft/faq/STQ386 (This link is being provided for informational/ educational purposes only.) The performance of this assay has not been clinically validated in patients less than 2 years old. HIV-1/2 ANTIGEN AND ANTIBODIES, 4TH GENERATION W/ REFLEX NON-REACT DINORA NON-REACT DINORA [facility] Comment: HIV-1 antigen and [...] purpose. For additional information please refer to http://Inivata.Dianxin/faq/DAW988 (This link is being provided for informational/ educational purposes only.) The performance of this assay has not been clinically validated in patients less than 2 years old. 08/21/2020 11:3 1 AM EST us Shantelle Adame MD LAB BLOOD ORDERABLES Final Re sult [facility] [address] * (ABNORMAL) LIPID PANEL, STANDARD (08/21/2020 [...] factors. LDL-C is now calculated using the Alistair-Chris calculation, which is a validated novel method providing better accuracy than the Friedewald equation in the estimation of LDL-C. Alistair DELAROSA et al. CANDI. 2013;310(19): 3459-7215 (http://education.Natural Option [place]/faq/GMV498) Non-HDL Cholesterol 168(H) <130 mg/dL (calc) [facility] [...] LDL-C. Alistair SS et al. CANDI. 2013;310(19): 2278-5207 (http://education.Cyber Gifts.Actionsoft/faq/UTV394) Non-HDL Cholesterol 168(H) <130 mg/dL (calc) [facility] [...] LDL-C. Alistair SS et al. CANDI. 2013;310(19): 5142-7242 (http://education.Cyber Gifts.Actionsoft/faq/EGL997) Non-HDL Cholesterol 168(H) <130 mg/dL (calc) [facility] Comment: For patients with diabetes plus 1 major ASCVD risk factor, treating to a non-HDL-C goal of <100 mg/dL (LDL-C of <70 mg/dL) is considered a therapeutic option. Triglycerides 156(H) <150 mg/dL [facility] 08/21/2020 11:3 1 AM EST us Shantelle Adame MD LAB BLOOD ORDERABLES Final Re sult [facility] [address] from Last 3 Months or Most Recently Relevant to Health Maintenance Insurance [employer] C3 Care Teams Shipping And Receiving Weigher Relationship Specialty Start Date End Date Kadi Tomlin MD 230 [facility] [place] [address] PCP - General Family Medicine 05/21/21
--- OUTSIDE RECORDS SUMMARY | 2025-07-29 13:42 | XMS_ITS | Encounter Summary ---
Author Organization [employer] Address [address] [place] [address] 7t [place] [address] Care Team Providers Care Construction Trades Teacher Name Role Phone Kadi Tomlin MD Primary Care Provider [phone] Reason for Visit * Reason Onset Date Comments Appointment Request 12/25/2022 Encounter Details Date Type Department Care Team (Late st Contact Info) Description 12/25/2022 Telephone [facility] MEDICINE [address] [place], [place] [phone] Kadi Tomlin MD [address] [place], [place] [phone] Appointment Request Social History Tobacco Use Types [...] schedule an appt Please contact pt at [phone] documented in this encounter Plan of Treatment Upcoming Encounters Date Type Department Care Team (Late st Contact Info) Description 08/28/2025 2:15 PM EST Office Visit [facility] MEDICINE [address] [place] [address] Kadi Tomlin MD [address] [place], [place] [phone] documented as of this encounter Visit Diagnoses Not on filedocumented in this encounter Additional Health Concerns Assessment Noted Time PHQ-9 Depression Total Score: 7 11/11/19 23 8:54 AM EST documented as of this encounter Care Teams Construction Trades Teacher Relationship Specialty Start Date End Date Kadi Tomlin MD [address] [place], [place] [phone] PCP - General Family Medicine 05/21/21 documented as of this encounter
--- OUTSIDE RECORDS SUMMARY | 2025-07-29 13:42 | XMS_ITS | Encounter Summary ---
Author Organization [employer] Address 75 [facility] 7t [place] [address] Care Team Providers Care Tank Washer Name Role Phone Kadi Tomlin MD Primary Care Provider [phone] Encounter Details Date Type Department Care Team (Late Contact Info) Description 06/19/2023 Orders Only [facility] MEDICINE [address] [place] [address] [phone] Kadi Tomlin MD [address] [place] [address] [phone] Social History Tobacco Use Types Packs/Day Years [...] Description 08/28/2025 2:15 PM EST Office Visit [facility] MEDICINE [address] [place] [address] [phone] Kadi Tomlin MD [address] [place] [address] [phone] documented as of this encounter Visit Diagnoses Not on filedocumented in this encounter Additional Health Concerns Assessment Noted Time PHQ-9 Depression Total Score: 7 05/18/20 23 3:02 PM EDT documented as of this encounter Care Teams Tank Washer Relationship Specialty Start Date End Date Kadi Tomlin MD [address] [place] [address] PCP - General Family Medicine 05/21/21 documented as of this encounter
--- OUTSIDE RECORDS SUMMARY | 2025-07-29 13:42 | XMS_ITS | Encounter Summary ---
Author Organization [employer] Address 75 [facility] 7t [place] [address] Care Team Providers Care Spacecraft Systems Engineer Name Role Phone Kadi Tomlin MD Primary Care Provider [phone] Reason for Visit * Reason Comments Med Refill Encounter Details Date Type Department Care Team ([facility] st Contact Info) Description 07/23/2025 Refill [facility] [address] [place], [place] [phone] Kadi Tomlin MD [address] [place] [address] Social History Tobacco Use Types Packs/Day Years [...] Description 08/28/2025 2:15 PM EST Office Visit [facility] MEDICINE [address] [place] [phone] Kadi Tomlin MD [address] [place] [phone] documented as of this encounter Visit Diagnoses Not on filedocumented in this encounter Additional Health Concerns Assessment Noted Time PHQ-9 Depression Total Score: 15 024 9:17 AM EDT documented as of this encounter Care Teams Spacecraft Systems Engineer Relationship Specialty Start Date End Date Kadi Tomlin MD [address] [place] [phone] PCP - General Family Medicine 05/21/21 documented as of this encounter
--- OUTSIDE RECORDS SUMMARY | 2025-07-29 13:42 | XMS_ITS | Encounter Summary ---
Author Organization [employer] Address 75 [facility] 7t [place] [address] Care Team Providers Care Conduit Mechanic Name Role Phone Kadi Tomlin MD Primary Care Provider [phone] Encounter Details Date Type Department Care Team (Late st Contact Info) Description 07/29/2025 Orders Only GENER[facility] EXTERNAL DATA DEPARTMENT Provider, Generic External Data Social History Tobacco Use Types Packs/Day Years [...] Description 08/28/2025 2:15 PM EST Office Visit [facility] MEDICINE [address] [place], [place] [phone] Kadi Tomlin MD [address] [place], [place] [phone] documented as of this encounter Procedures Procedure Name Priority Date/Time Associated Diagnosis Comments XR KNEE 4+ VIEWS LEFT Routine 07/29/2025 12:47 PM EST XR SHOULDER 2+ VIEWS RIGHT Routine 07/29/2025 12:45 PM EST CBC WITH AUTO DIFFERENTIAL Routine 07/29/2025 12:03 PM EST COMPREHENSIVE METABOLIC PANEL Routine 07/29/2025 12:03 PM EST documented in this encounter Results * XR Knee 4+ Views Left (07/29/2025 12:47 PM EST) Anatomical Region Laterality Modality Lower Extremities, Knee Left [facility] 07/29/2025 12:4 7 PM EST Narrative 07/29/2025 12:49 PM EST [address] [address] XRay Report Signed Patient: Danika Morales MR#: [id number] 2 : 1965 Acct:[id number] Age/Sex: 59 / F ADM Date: 07/29/25 Loc: .ED Attending Dr: Ordering Physician: Generic ED Physician Date of Service: 07/29/25 Procedure(s): XR knee LT 4V Accession Number(s): [id number] cc: Generic ED Physician; [facility] Reason for Exam: fall CLINICAL HISTORY: fall [...] in OV> 07/29/25 1248 DD/ 1247 TD/TT: 07/29/251246 Flight Communications Operator: Procedure Note Gastonter, Image - 07/29/2025 [place] [address] XRay Report Signed Patient: Koby Morales#: [id number] 2 : 1965Acct:[id number] Age/Sex: 59 / FADM Date: 07/29/25 Loc: .ED Attending Dr: Ordering Physician: Generic ED Physician Date of Service: 07/29/25 Procedure(s): XR knee LT 4V Accession Number(s): [id number] cc: [facility] ED Physician; [facility] Reason for Exam: fall CLINICAL HISTORY: fall [...] in OV> 07/29/25 1248 DD/ 1247 TD/TT: 07/29/251246 Flight Communications Operator: [facility] External Provider IMG XR PROCEDURES Final Result * XR Shoulder 2+ Views Right (07/29/2025 12:45 PM EST) Anatomical Region Laterality Modality Upper Extremities, Shoulder Right Radi ographic Imaging 07/29/2025 12:4 5 PM EST Narrative 07/29/2025 12:48 PM EST [address] [address] XRay Report Signed Patient: Danika Morales MR#: [id number] 2 : 1965 Acct:[id number] Age/Sex: 59 / F ADM Date: 07/29/25 Loc: HO.ED Attending Dr: Ordering Physician: Generic ED Physician Date of Service: 07/29/25 Procedure(s): XR shoulder RT min 2V Accession Number(s): [id number] cc: Generic ED Physician; [facility] Reason for Exam: fall CLINICAL HISTORY: fall [...] Bull MD in OV> 07/29/25 1247 DD/ 1245 TD/TT: 07/29/25 1245 Flight Communications Operator: Procedure Note Donotuseinterpreter, Image - 07/29/[address] [address] XRay Report Signed Patient: Jess MoralesR#: [id number] 2 : 1965Acct:[id number] Age/Sex: 59 / FADM Date: 07/29/25 Loc: HO.ED Attending Dr: Ordering Physician: Generic ED Physician Date of Service: 07/29/25 Procedure(s): XR shoulder RT min 2V Accession Number(s): [id number] cc: Generic ED Physician; [facility] Reason for Exam: fall CLINICAL HISTORY: fall [...] Bull MD in OV> 07/29/25 1247 DD/ 1245 TD/TT: 07/29/25 1245 Flight Communications Operator: [facility] External Provider IMG XR PROCEDURES Final Result * (ABNORMAL) Comprehensive Metabolic Panel (07/29/2025 12:03 PM EST) Sodium 139 135 - 145 mmol/L [facility] Potassium 3.5 3.3 - 5.1 mmol/L [facility] Chloride 104 96 - 108 mmol/L [facility] Carbon Dioxide 24 22 - 29 mmol/L [facility] Anion Gap 15 12 - 20 [facility] Urea Nitrogen (BUN) 13 9 - 16 mg/dL [facility] Creatinine, Serum 1.04 0.5 - 1.4 mg/dL [facility] Creatinine Clr Calc Pharmacy 61.2 [facility] Comment:Provided height and weight: 162.56 cm,80.5 kg.eGFR (calculated from the MDRD study equation) and eCrCl(calculated from the Cockcroft-Gault equation) are based ondifferent parameters and may not yield comparable results.If eCrCl result is absurd, please check patient'sheight/weight. Estimated Glomerular Filt Rate 55 [facility] Comment:Chronic Kidney Disea se: Estimated GFR < 60 mL/min/1.58o2Epqkld Kidney Disease: Estimated GFR < 15 mL/min/1.73m2 Glucose 88 60 - 115 mg/dL [facility] Calcium 9.8 8.4 - 10.2 mg/dL [facility] Bilirubin, Total 0.3 0.0 - 1.0 mg/dL [facility] Aspartate Amino Transferase 33(H) 5 - 31 U/L [facility] Alanine Aminotransferase 26 0 - 31 U/L [facility] Total Protein 7.4 6.5 - 8.0 g/dL [facility] Albumin Level 4.2 3.5 - 5.0 g/dL [facility] Alkaline Phosphatase 134(H) 39 - 117 U/L [facility] 07/29/2025 12:0 3 PM EST 07/29/2025 12:07 PM EST us Generic External Data Provider LAB BLOOD ORDERAB LES Final Result [facility] [address] [place] [address] [phone] * (ABNORMAL) CBC auto differential (07/29/2025 12:03 PM EST) White Blood Count 7.4 4.8 - 10.8 X10*3/uL [facility] Red Blood Count 3.64(L) 4.20 - 5.50 X10*6/uL [facility] Hemoglobin 8.2(L) 12.0 - 16.0 g/dl [facility] Hematocrit 26.6(L) 37.0 - 47.0 % [facility] Mean Corpuscular Volume 73.1(L) 80.0 - 98.0 fL [facility] Mean Corpuscular Hemoglobin 22.5(L) 27.0 - 33.0 pg [facility] Mean Corpuscular HGB Conc 30.8(L) 31.0 - 35.0 g/dl [facility] Red Cell Distribution Width 18.2(H) 11.0 - 16.0 % [facility] Platelet Count 308 160 - 400 X10*3/uL [facility] Mean Platelet Volume 9.5 9.4 - 12.3 fL [facility] Neutrophils Percent Auto 59.6 45 - 73 % [facility] Imm Gran Pct Auto 0.3 0.0 - 0.4 % [facility] Lymphocytes Percent Auto 31.1 20 - 40 % [facility] Monocytes Percent Auto 7.1 2 - 11 % [facility] Eosinophils Percent Auto 1.4 0 - 4 % [facility] Basophils Percent Auto 0.5 0 - 2 % [facility] NRBC Pct Auto 0.0 0.0 - 0.2 /100WBC [facility] Neutrophils Absolute Auto 4.4 2.0 - 8.3 x10*3/uL [facility] Imm Gran Abs Auto 0.02 0.00 - 0.03 X10*3/uL [facility] Lymphocytes Absolute Auto 2.3 1.2 - 4.9 X10*3/uL [facility] Monocytes Absolute Auto 0.5 0.1 - 1.2 X10*3/uL [facility] Eosinophils Absolute Auto 0.1 0.0 - 0.4 X10*3/uL [facility] Basophils Absolute Auto 0.0 0.0 - 0.2 X10*3/uL [facility] NRBC Abs Auto 0.000 0.0 - 0.012 X10*3/uL [facility] 07/29/2025 12:0 3 PM EST 07/29/2025 12:07 PM EST us Generic External Data Provider LAB BLOOD ORDERAB LES Final Result [facility] [address] [place] [address] [phone] documented in this encounter Visit Diagnoses Not on filedocumented in this encounter Additional Health Concerns Assessment Noted Time PHQ-9 Depression Total Score: 15 024 9:17 AM EDT documented as of this encounter Care Teams Conduit Mechanic Relationship Specialty Start Date End Date Kadi Tomlin MD [address] [place] [address] PCP - General Family Medicine 05/21/21 documented as of this encounter
--- OUTSIDE RECORDS SUMMARY | 2025-07-29 13:42 | XMS_ITS | Encounter Summary ---
Author Organization [employer] Address 75 [facility] 7t [place] [address] Care Team Providers Care Energy Auditor Name Role Phone Kadi Tomlin MD Primary Care Provider [phone] Reason for Visit * Reason Onset Date Comments Appointment Request 03/27/2023 Encounter Details Date Type Department Care Team (Late Contact Info) Description 03/27/2023 Telephone [facility] MEDICINE [address] [place] [address] Kadi Tomlin MD 230 [place], [place] [phone] Appointment Request Social History Tobacco Use Types [...] with Enoc Boles. Please contact pt at [phone] documented in this encounter Plan of Treatment Upcoming Encounters Date Type Department Care Team (Late Contact Info) Description 08/28/2025 2:15 PM EST Office Visit [facility] MEDICINE [address] [place] [address] Kadi Tomlin MD [address] [place] [address] documented as of this encounter Visit Diagnoses Not on filedocumented in this encounter Additional Health Concerns Assessment Noted Time PHQ-9 Depression Total Score: 9 01/09/20 23 9:12 AM EDT documented as of this encounter Care Teams Energy Auditor Relationship Specialty Start Date End Date Kadi Tomlin MD [address] [place], [place] [phone] PCP - General Family Medicine 05/21/21 documented as of this encounter
--- OUTSIDE RECORDS SUMMARY | 2025-07-29 13:42 | XMS_ITS | Encounter Summary ---
Author Organization [employer] Address [address] [place] [address] 7t [place] [address] Care Team Providers Care Blower Insulator Name Role Phone Kadi Tomlin MD Primary Care Provider [phone] Reason for Visit * Reason Comments Med Refill Encounter Details Date Type Department Care Team (Late Contact Info) Description 03/25/2023 Refill [facility] [address] [place], [place] [phone] Enoc Boles FNP Depressive disorder Social History [...] Description 08/28/2025 2:15 PM EST Office Visit [facility] MEDICINE [address] [place] [address] Kadi Tomlin MD [address] [place], [place] [phone] documented as of this encounter Visit Diagnoses Diagnosis Depressive disorder Depressive disorder, not elsewhere classified documented in this encounter Additional Health Concerns Assessment Noted Time PHQ-9 Depression Total Score: 9 01/09/20 23 9:12 AM EDT documented as of this encounter Care Teams Blower Insulator Relationship Specialty Start Date End Date Kadi Tomlin MD [address] [place] [address] PCP - General Family Medicine 05/21/21 documented as of this encounter
--- OUTSIDE RECORDS SUMMARY | 2025-07-29 13:42 | XMS_ITS | Encounter Summary ---
Author Organization [employer] [facility] Address [address] [place] [address] 7t [place] [address] Care Team Providers Care Housekeeping Aid Name Role Phone Kadi Tomlin MD Primary Care Provider [phone] Encounter Details Date Type Department Care Team ([facility] Contact Info) Description 05/28/2023 Orders Only [facility] MED[facility]INE [address] [place] [address] [phone] ProviderTracey MD Social History Tobacco Use Types [...] Description 08/28/2025 2:15 PM EST Office Visit [facility] [address] [place] [address] [phone] Kadi Tomlin MD [address] [place] [address] [phone] documented as of this encounter Procedures Procedure [...] documented as of this encounter Care Teams Housekeeping Aid Relationship Specialty Start Date End Date Kadi Tomlin MD [address] [place] [address] PCP - General Family Medicine 05/21/21 documented as of this encounter
--- OUTSIDE RECORDS SUMMARY | 2025-07-29 13:42 | XMS_ITS | Encounter Summary ---
Author Organization [employer] Address 75 [facility] 7t [place] [address] Care Team Providers Care Kennel Supervisor Name Role Phone Kadi Tomlin MD Primary Care Provider [phone] Encounter Details Date Type Department Care Team (Late st Contact Info) Description 11/28/2022 Orders Only [facility] MEDICINE [address] [place], [place] [phone] Kadi Tomlin MD [address] [place], [place] [phone] Other hyperlipidemia (Primary Dx); Pain of lower [...] PM EST Office Visit [facility] MED[facility]INE [address] [place] [address] Kadi Tomlin MD [address] [place] [address] documented as of this encounter Procedures Procedure [...] AM EDT Narrative 12/17/2022 8:44 AM EDT [address] [address] XRay Report Signed Patient: Danika Morales MR#: [id number] 2 : 1965 Acct:[id number] Age/Sex: 57 / F ADM Date: 12/10/22 Loc: RAYO Attending Dr: Kadi Tomlin MD Ordering Physician: Kadi Tomlin Date of Service: 12/10/22 Procedure(s): XR wrist LT min 3V Accession Number(s): [id number] cc: Kadi Tomlin EXAMINATION: XR ELBOW, LEFT [...] in OV> 12/17/22 0841 DD/ 1048 TD/TT: Migratory Worker: BLANCA Procedure Note Donotuseinterpreter, Image - 01/05/2023 [place] [address] XRay Report Signed Patient: Koby Morales#: [id number] 2 : 1965Acct:[id number] Age/Sex: 57 / FADM Date: 12/10/22 Loc: HO.GLADIS Attending Dr: Kadi Tomlin MD Ordering Physician: Kadi Tomlin Date of Service: 12/10/22 Procedure(s): XR wrist LT min 3V Accession Number(s): [id number] cc: Kadi Tomlin EXAMINATION: XR ELBOW, LEFT [...] in OV> 12/17/22 08 DD/ 1048 TD/TT: Migratory Worker: BLANCA [facility] External Provider IMG XR PROCEDURES Final Result * XR Elbow 1-2 Views Left (12/10/2022 10:48 AM EDT) Anatomical Region Laterality Modality Upper Extremities, Elbow Left Radiogr aphic Imaging 12/10/2022 10:4 8 AM EDT Narrative 12/17/2022 8:44 AM EDT [place] [address] XRay Report Signed Patient: Danika Morales MR#: [id number] 2 : 1965 Acct:[id number] Age/Sex: 57 / F ADM Date: 12/10/22 Loc: RAYO Attending Dr: Kadi Tomlin MD Ordering Physician: Kadi Tomlin Date of Service: 12/10/22 Procedure(s): XR elbow LT 2V Accession Number(s): [id number] cc: Kadi Tomlin EXAMINATION: XR ELBOW, LEFT [...] in OV> 12/17/22 0841 DD/ 1048 TD/TT: Migratory Worker: BLANCA Procedure Note Donotuseinterpreter, Image - 12/17/[address] [address] XRay Report Signed Patient: Koby Morales#: [id number] 2 : 1965Acct:[id number] Age/Sex: 57 / FADM Date: 12/10/22 Loc: HO.GLADIS Attending Dr: Kadi Tomlin MD Ordering Physician: Kadi Tomlin Date of Service: 12/10/22 Procedure(s): XR elbow LT 2V Accession Number(s): [id number] cc: Kadi Tomlin EXAMINATION: XR ELBOW, LEFT [...] in OV> 12/17/22 0841 DD/ 1048 TD/TT: Migratory Worker: BLANCA us [facility] External Provider IMG XR PROCEDURES Final Result * XR Shoulder 2+ Views Left (12/10/2022 10:48 AM EDT) Anatomical Region Laterality Modality Upper Extremities, Shoulder Left Radi ographic Imaging 12/10/2022 10:4 8 AM EDT Narrative 12/17/2022 8:44 AM EDT [address] [address] XRay Report Signed Patient: Danika Morales MR#: [id number] 2 : 1965 Acct:[id number] Age/Sex: 57 / F ADM Date: 12/10/22 Loc: RAYO Attending Dr: Kadi Tomlin MD Ordering Physician: Kadi Tomlin Date of Service: 12/10/22 Procedure(s): XR shoulder LT min 2V Accession Number(s): [id number] cc: Kadi Tomlin EXAMINATION: XR ELBOW, LEFT [...] in OV> 12/17/22 0841 DD/ 1048 TD/TT: Migratory Worker: [facility] Procedure Note Donotuseinterpreter, Image - 12/17/[address] [address] XRay Report Signed Patient: Jess MoralesR#: [id number] 2 : 1965Acct:[id number] Age/Sex: 57 / FADM Date: 12/10/22 Loc: RAYO Attending Dr: Kadi Tomlin MD Ordering Physician: Kadi Tomlin Date of Service: 12/10/22 Procedure(s): XR shoulder LT min 2V Accession Number(s): [id number] cc: Kadi Tomlin EXAMINATION: XR ELBOW, LEFT [...] in OV> 12/17/22 0841 DD/ 1048 TD/TT: Migratory Worker: BLANCA [facility] External Provider IMG XR PROCEDURES Final Result documented in this encounter Visit Diagnoses Diagnosis Other hyperlipidemia- Primary Pain of lower extremity, unspecified laterality documented in this encounter Additional Health Concerns Assessment Noted Time PHQ-9 Depression Total Score: 7 11/11/19 23 8:54 AM EST documented as of this encounter Care Teams Kennel Supervisor Relationship Specialty Start Date End Date Kadi Tomlin MD [address] [place] [address] PCP - General Family Medicine 05/21/21 documented as of this encounter
--- OUTSIDE RECORDS SUMMARY | 2025-07-29 13:42 | XMS_ITS | Encounter Summary ---
Author Organization [employer] Address 75 [facility] 7t [place] [address] Care Team Providers Care Psychiatric Secretary Name Role Phone Kadi Tomlin MD Primary Care Provider [phone] Reason for Visit * Reason Onset Date Comments Nurse Triage 04/05/2024 Encounter Details Date Type Department Care Team (Late st Contact Info) Description 04/05/2024 Telephone [facility] MEDICINE [address] [place], [place] [phone] Kadi Tomlin MD 230 [place], [place] [phone] Nurse Triage Social History Tobacco Use Types [...] 04/05/2024 12:14 PM EDT Triage call with [employer] Fans Clerk [place] [id number] Pt reports low blood pressure of 106/80 [...] fordays. Pt is advised to come to [facility] today to be seen by provider and [...] accepted this outcome Please contact pt @ [phone] Chilean Speaker documented in this encounter Plan of Treatment Upcoming Encounters Date Type Department Care Team (Late st Contact Info) Description 08/28/2025 2:15 PM EST Office Visit [facility] MEDICINE [address] [place] [address] Kadi Tomlin MD [address] [place] [address] documented as of this encounter Visit Diagnoses Not on filedocumented in this encounter Additional Health Concerns Assessment Noted Time PHQ-9 Depression Total Score: 15 024 9:17 AM EDT documented as of this encounter Care Teams Psychiatric Secretary Relationship Specialty Start Date End Date Kadi Tomlin MD [address] [place] [address] PCP - General Family Medicine 05/21/21 documented as of this encounter
--- OUTSIDE RECORDS SUMMARY | 2025-07-29 13:42 | XMS_ITS | Encounter Summary ---
Author Organization [employer] Address [address] [facility] 7t [place] [address] Care Team Providers Care Contact Representative Name Role Phone Kadi Tomlin MD Primary Care Provider [phone] Encounter Details Date Type Department Care Team (Late st Contact Info) Description 08/17/2023 Abstract [facility] MEDICINE [address] [place] [phone] Denisse Castillo Social History Tobacco Use Types [...] Description 08/28/2025 2:15 PM EST Office Visit [facility] [address] [place] [address] Kadi Tomlin MD [address] [place] [address] documented as of this encounter Visit Diagnoses Not on filedocumented in this encounter Additional Health Concerns Assessment Noted Time PHQ-9 Depression Total Score: 9 07/20/20 23 2:18 PM EDT documented as of this encounter Care Teams Contact Representative Relationship Specialty Start Date End Date Kadi Tomlin MD [address] [place] [address] PCP - General Family Medicine 05/21/21 documented as of this encounter
[2025-07-29 14:00] VITALS: BP 118/70; PULSE 66; RESP 20; O2SAT 97
--- NOTE | 2025-07-29 14:08 | ED.FALL ---
HPI - Fall General Chief Complaint: Fall Stated Complaint: fell head inj Time Seen by Provider: 07/29/25 13:21 History of Present Illness HPI Narrative: Patient is a 59-year-old female was walking at night at about 01:00 to the bathroom slipped fell hit the back of her head. Patient was taking sleeping pills at the time. Complaining of pain to the back of the head also to the right shoulder and left knee. Patient from home. No loss of consciousness. No nausea no vomiting. Came to the ED because of worsening pain. Related Data Home Medications ?Medication ?Instructions ?Recorded ?Confirmed baclofen 10 mg tablet 10 mg PO TID PRN Muscle Spasm 09/05/20 07/11/25 hydrochlorothiazide 25 mg tablet 25 mg PO DAILY 09/05/20 07/11/25 cholecalciferol (vitamin D3) 50 50 mcg PO DAILY 08/27/21 07/11/25 mcg (2,000 unit) tablet albuterol sulfate 90 mcg/actuation 2 puff inhalation QID PRN Wheezing 02/13/22 07/11/25 aerosol inhaler sumatriptan succinate 100 mg tablet 100 mg PO DAILY MRX1 PRN headaches 02/13/22 07/11/25 inhalational spacing device #1 ea 11/27/23 (Compact Space Chamber) lisinopril 40 mg tablet 40 mg PO DAILY 11/27/23 07/11/25 nifedipine 30 mg tablet,extended 30 mg PO DAILY 11/27/23 07/11/25 release 24 hr propranolol 40 mg tablet 40 mg PO BID 11/27/23 07/11/25 atorvastatin 40 mg tablet 40 mg PO DAILY 04/10/25 07/11/25 desvenlafaxine succinate 50 mg 50 mg PO QAM 04/10/25 07/11/25 tablet,extended release 24 hr lidocaine 5 % topical patch 1 patch topical DAILY 04/10/25 07/11/25 quetiapine 25 mg tablet 25 mg PO QAM anxiety 04/10/25 07/11/25 zolpidem 10 mg tablet 10 mg PO BEDTIME 04/10/25 07/11/25 clalskvanr-fiqzwbflmetnu-wyyfyxgc 1 tab PO DAILY PRN migraine 07/11/25 07/11/25 50 mg-325 mg-40 mg tablet naproxen 250 mg tablet 250 mg PO BID 07/11/25 07/11/25 Previous Rx's ?Medication ?Instructions ?Recorded clonidine HCl 0.1 mg tablet 0.1 mg PO BID #60 tabs 02/15/22 buspirone 30 mg tablet 30 mg PO BID 30 days #60 tabs 10/24/24 escitalopram oxalate 10 mg tablet 10 mg PO DAILY 30 days #30 tabs 10/24/24 quetiapine 100 mg tablet (Seroquel) 100 mg PO BEDTIME 30 days #30 tabs 10/24/24 ibuprofen 800 mg tablet 800 mg PO Q8H #30 tabs 01/03/25 esomeprazole magnesium 40 mg 40 mg PO DAILY #90 caps 04/10/25 capsule,delayed release ondansetron 4 mg disintegrating 4 mg PO Q8H PRN nausea and 04/10/25 tablet vomiting #14 tabs peg 3350-electrolytes 236 240 ml PO Q10M #4,000 mL 04/10/25 gram-22.74 gram-6.74 gram-5.86 gram solution (Golytely) linaclotide 290 mcg capsule 290 mcg PO DAILY #90 caps 04/14/25 peg 3350-electrolytes 236 240 ml PO Q10M colonoscopy prep 06/21/25 gram-22.74 gram-6.74 gram-5.86 #4,000 mL gram solution Allergies Allergy/AdvReac Type Severity Reaction Status Date / Time No Known Allergies Allergy Verified 07/29/25 11:33 Review of Systems Review of Systems: Positive headache. Positive pain to the right shoulder positive pain to the left knee Yes all other systems are reviewed and are negative PMFSH Past Medical History Attestation statement: The following information was validated with the patient. Medical History Substance abuse Osteoarthritis GERD (gastroesophageal reflux disease) Hypothyroid Hx of hepatitis C Migraines Anxiety Depression Asthma Hypertension Surgical History History of esophagogastroduodenoscopy (EGD) History of nasal surgery History of tubal ligation History of colonoscopy Family History Family History Father No problems noted. Mother HTN (hypertension) Social History Social History Household Members: Family Housing: House Are you a primary daycare director to a significant other at home: No Do you presently have visiting nurse or other home services: No Alcohol intake: never Patient Tobacco Use Status: Never used Tobacco e-Cigarette/Vaping Use: Never Used Substance Use Type: Crack/Cocaine Advance Directives: Yes Advance Directives on File: Yes Advance Directives Date on File: 02/19/22 service: No Current occupational status: employed Current occupation: right hand dominant Sexual orientation: Straight/Heterosexual Physical Exam Exam: Exam: Appearance: Alert. Oriented X3. No acute distress. Eyes: Pupils equal, round and reactive to light. ENT: Pharynx normal. No hemotympanum noted. Neck: Normal inspection. Neck supple. No lymph nodes noted. No crepitus CVS: Normal heart rate and rhythm. Pulses normal. Normal S1 and S2 Respiratory: No respiratory distress. Breath sounds normal. No Wheezing. No rales Abdomen: Soft and nontender. No rigidity. No distention. good BS x4 Skin: Skin warm and dry. Normal skin color. Normal skin turgor. Extremities: Positive pain in the right shoulder. Range of motion grossly intact. Distal sensation intact. Range of motion intact in the left knee. There is no tenderness on palpation of the patella. No tenderness on palpation medial lateral collateral ligament. Ambulates with pain.. No Lacerations. No Rash Neuro: Oriented X 3. No motor deficit. No sensory deficit. Moving all extermities. No slurred speech Vital Signs: Vital Signs: Last Vital Signs Temp 98.8 F 07/29/25 16:56 Pulse 94 07/29/25 16:56 Resp 16 07/29/25 16:56 BP 135/75 07/29/25 16:56 Pulse Ox 98 07/29/25 16:56 O2 Del Method Room Air 07/29/25 16:56 BMI result Body Mass Index 30.5 Medical Decision Making Medical Decision Making MDM Narrative: My interpretation patient's x-ray of the right shoulder was grossly negative. My interpretation patient's left knee x-ray was negative. My interpretation of patient's CT scan head was grossly negative. I reviewed radiology's reading of the CT head CT C-spine were both negative. Head injury precaution. Will discharge patient home. Currently in stable condition. White count is normal hemoglobin is 8.2 this is slightly lower than baseline patient will need to be followed up on an outpatient basis. Kidney functions are normal. The fall was purely mechanical. Differential Diagnosis Differential Diagnoses: The differential diagnosis associated with the presentation includes Intracranial bleed, fracture, serum cervical spine fracture Admission/Observation Consideration of admission/observation: Escalation of care including admission/observation considered Lab Data MDM Lab Attestation statement: I reviewed the patient's lab results. 07/29/25 12:03 07/29/25 12:03 Labs: Lab Results 07/29/25 Range/Units 12:03 WBC 7.4 (4.8-10.8) X10*3/uL RBC 3.64 L (4.20-5.50) X10*6/uL Hgb 8.2 L (12.0-16.0) g/dl Hct 26.6 L (37.0-47.0) % MCV 73.1 L (80.0-98.0) fL MCH 22.5 L (27.0-33.0) pg MCHC 30.8 L (31.0-35.0) g/dl RDW 18.2 H (11.0-16.0) % Plt Count 308 (160-400) X10*3/uL MPV 9.5 (9.4-12.3) fL Immature Gran % (Auto) 0.3 (0.0-0.4) % Neut % (Auto) 59.6 (45-73) % Lymph % (Auto) 31.1 (20-40) % [place] % (Auto) 7.1 (2-11) % Eos % (Auto) 1.4 (0-4) % Baso % (Auto) 0.5 (0-2) % Lymph # (Auto) 2.3 (1.2-4.9) X10*3/uL [place] # (Auto) 0.5 (0.1-1.2) X10*3/uL Eos # (Auto) 0.1 (0.0-0.4) X10*3/uL Baso # (Auto) 0.0 (0.0-0.2) X10*3/uL Abs Immat Gran (auto) 0.02 (0.00-0.03) X10*3/uL Absolute Neuts (auto) 4.4 (2.0-8.3) x10*3/uL Absolute Nucleated RBC 0.000 (0.0-0.012) X10*3/uL Nucleated RBC % (auto) 0.0 (0.0-0.2) /100WBC Sodium 139 (135-145) mmol/L Potassium 3.5 (3.3-5.1) mmol/L Chloride 104 (96-108) mmol/L Carbon Dioxide 24 (22-29) mmol/L Anion Gap 15 (12-20) BUN 13 (9-16) mg/dL Creatinine 1.04 (0.5-1.4) mg/dL Estim Creat Clear Calc 61.2 Estimated GFR 55 Random Glucose 88 (60-115) mg/dL Calcium 9.8 (8.4-10.2) mg/dL Total Bilirubin 0.3 (0.0-1.0) mg/dL AST 33 H (5-31) U/L ALT 26 (0-31) U/L Alkaline Phosphatase 134 H (39-117) U/L Total Protein 7.4 (6.5-8.0) g/dL Albumin 4.2 (3.5-5.0) g/dL Independent Interpretation I performed an independent interpretation of an: Plain X-Ray (Shoulder x-ray negative) and CT Scan (CT head negative) Radiology Impression Discussion of test interpretation with radiology: I have reviewed the radiologist's reading. External Record Review External record reviewed: Office record (Patient's anemia has been worked up in the past.) Chronic Conditions History of anemia Social Determinants Patient?s care significantly limited by Social Determinants of Health including: Problems related to primary support group Discharge Plan Discharge Clinical Impression: Head injury, Anemia Patient Disposition: Home, Self-Care Instructions: Anemia (ED), Head Injury (DC) Prescriptions: No Action linaclotide 290 mcg capsule 290 mcg PO DAILY Qty: 90 1RF peg 3350-electrolytes 236-22.74-6.74 -5.86 gram recon soln 240 ml PO Q10M Qty: 4000 0RF Rx Instructions: USE WATER ONLY to dilute. This may be prepared 2 days before your procedure and placed in refrigerator. The DAY BEFORE PROCEDURE: AT 4PM START drinking 1 cup every 15minutes until half is gone. Continue drinking plenty of clear liquids. AT 10PM FINISH drinking remaining prep until stool is clear. baclofen 10 mg Tablet 10 mg PO TID PRN (Reason: Muscle Spasm) hydrochlorothiazide 25 mg Tablet 25 mg PO DAILY sumatriptan succinate 100 mg tablet 100 mg PO DAILY MRX1 PRN (Reason: headaches) albuterol sulfate 90 mcg/actuation Hfa Aerosol Inhaler 2 puff INHALATION QID PRN (Reason: Wheezing) clonidine HCl 0.1 mg Tablet 0.1 mg PO BID Qty: 60 0RF Protocol: Hold for SBP< HOLD for SBP < : 90 naproxen 250 mg tablet 250 mg PO BID mxotbfnnky-hffgfqlgvkccu-rfot 50-325-40 mg tablet 1 tab PO DAILY PRN (Reason: migraine) quetiapine [Seroquel] 100 mg Tablet 100 mg PO BEDTIME 30 Days Qty: 30 0RF buspirone 30 mg tablet 30 mg PO BID 30 Days Qty: 60 0RF escitalopram oxalate 10 mg tablet 10 mg PO DAILY 30 Days Qty: 30 0RF cholecalciferol (vitamin D3) 50 mcg (2,000 unit) tablet 50 mcg PO DAILY (DME) Compact Space Chamber Spacer See Rx Instructions .ROUTE Q4H Qty: 1 Rx Instructions: As directed nifedipine 30 mg tablet extended release 24hr 30 mg PO DAILY propranolol 40 mg tablet 40 mg PO BID lisinopril 40 mg tablet 40 mg PO DAILY quetiapine 25 mg tablet 25 mg PO QAM zolpidem 10 mg tablet 10 mg PO BEDTIME atorvastatin 40 mg tablet 40 mg PO DAILY lidocaine 5 % adhesive patch,medicated 1 patch topical DAILY desvenlafaxine succinate 50 mg tablet extended release 24 hr 50 mg PO QAM esomeprazole magnesium 40 mg capsule,delayed release(DR/EC) 40 mg PO DAILY Qty: 90 2RF ondansetron 4 mg tablet,disintegrating 4 mg PO Q8H PRN (Reason: nausea and vomiting) Qty: 14 0RF peg 3350-electrolytes [Golytely] 236-22.74-6.74 -5.86 gram recon soln 240 ml PO Q10M Qty: 4000 0RF Rx Instructions: until fecal effluent is clear ibuprofen 800 mg tablet 800 mg PO Q8H Qty: 30 0RF Rx Instructions: 800mg every 8 hours as needed, to take before PT, with full stomach Referrals: [facility] [Primary Care Provider, Medical] - 08/01/25 Print Language: Burmese
[2025-07-29 16:56] VITALS: BP 135/75; PULSE 94; RESP 16; TEMP 37.1; O2SAT 98
== END 2025-07-29 18:08 | disposition home or self-care (01) ==
PROVIDERS: Physician Assistant; Emergency Provider Emergency Medicine Emergency Medical Services
DX: S09.90XA Unspecified injury of head, initial encounter (principal); D64.9 Anemia, unspecified; M25.511 Pain in right shoulder; M25.562 Pain in left knee; W01.0XXA Fall on same level from slipping, tripping and stumbling without subsequent striking against object, initial encounter; Y93.01 Activity, walking, marching and hiking; Y92.9 Unspecified place or not applicable; Y99.9 Unspecified external cause status
CPT/HCPCS: 36415; 70450; 72125; 73030; 73564; 80053; 85025; 99283; 99284

== ENCOUNTER → 2025-07-29 11:34 | Outpatient (BNV) | payer MEDICAID, SELFPAY | PROVIDERS: Visit Provider Radiology Diagnostic Radiology | DX: Z04.3 Encounter for examination and observation following other accident (principal) | CPT/HCPCS: 73030; 73564 ==

== ENCOUNTER 2025-08-01 12:13 | Outpatient (REF) | payer MEDICAID, SELFPAY ==
--- NOTE | ~2025-08-01 | XR_ITS ---
EXAMINATION: XR CERVICAL SPINE CLINICAL INFORMATION: PAIN COMPARISON: January 03, 2025. Correlated to CT dated July 29, 2025. TECHNIQUE: AP lateral and atlantoodontoid views. FINDINGS: Craniocervical junction is intact. No acute cortical disruption or malalignment. Small marginal osteophyte formation at C5-6 and to a lesser extent C4-5. No lytic or blastic lesions. Upper airway is patent. XR/XR cervical spine 3V IMPRESSION: Mild cervical spondylosis C5-6. Electronically signed by: Jimmy Singh MD 08/01/2025 02:35 PM EST
--- OUTSIDE RECORDS SUMMARY | 2025-08-01 11:45 | XMS_ITS | Encounter Summary ---
Author Organization [employer] Address [address] [facility] 7[address] [place] [address] Care Team Providers Care Shredded Filler Hopper Feeder Name Role Phone Kadi Tmolin MD Primary Care Provider [phone] Reason for Visit * Reason Comments [facility] ED 07/29 Encounter Details Date Type Department Care Team ([facility] st Contact Info) Description 08/01/2025 11:45 AM EST Office Visit [facility] MEDICINE [address] [place], [place] [phone] Vicky Can DO [address] [place], [place] [phone] Acute pain of right shoulder (Primary Dx); Anemia, unspecified type; Intractable acute post-traumatic headache Social History Tobacco Use Types Packs/Day Years [...] Sign Reading Time Taken Comments Blood Pressure 116/74 08/01/2025 11:42 AM EST Pulse 98 08/01/2025 11:42 AM EST Temperature 37.2 C (99 F) 08/01/2025 11:42 AM EST Respiratory Rate 20 08/01/2025 11:42 AM EST Oxygen Saturation - - Inhaled Oxygen Concentration - - Weight 81.2 kg (179 lb) 08/01/2025 11:42 AM EST Height 162.6 cm (5' 4 ) 08/01/2025 11:42 AM EST Body Mass Index 30.73 08/01/2025 11:42 AM EST documented in this encounter Plan of Treatment Upcoming Encounters Date Type Department Care Team (Late st Contact Info) Description 08/28/2025 2:15 PM EST Office Visit [facility] MEDICINE [address] [place] [address] Kadi Tomlin MD [address] [place] [address] Scheduled Orders Name Type Priority Associated Diagnoses Orde r Schedule XR Cervical Spine 2-3 Views Imaging Urgent Acute pain of right shoulder Expected: 08/01/2025, Expires: 08/01/2026 CBC auto differential Lab Routine Anemia, unspecified type Expected: 08/01/2025 (Approximate), Expires: 08/01/2026 Vitamin B12 (Cobalamin) and Folate Panel, Serum Lab Routine Anemia, unspecified type Expected: 08/01/2025, Expires: 08/01/2026 Ferritin Lab Routine Anemia, unspecified type Expected: 08/01/2025, Expires: 08/01/2026 Iron And Total Iron Binding Capacity Lab Routine Anemia, unspecified type Expected: 08/01/2025, Expires: 08/01/2026 Basic Metabolic Panel Lab Routine Anemia, unspecified type Expected: 08/01/2025 (Approximate), Expires: 08/01/2026 documented as of this encounter Visit Diagnoses Diagnosis Acute pain of right shoulder- Primary Anemia, unspecified type Intractable acute post-traumatic headache documented in this encounter Additional Health Concerns Assessment Noted Time PHQ-9 Depression Total Score: 15 07/2 024 9:17 AM EDT documented as of this encounter Care Teams Shredded Filler Hopper Feeder Relationship Specialty Start Date End Date Kadi Tomlin MD [address] [place] [id number] PCP - General Family Medicine 05/21/21 documented as of this encounter
[2025-08-01 13:44] LABS: MANUAL DIFF FLAG NO
[2025-08-01 13:53] LABS: Hematocrit 28.1 % (37.0-47.0); Hemoglobin 8.5 g/dl (12.0-16.0); Imm Gran Abs Auto 0.01 X10*3/uL (0.00-0.03); Imm Gran Pct Auto 0.2 % (0.0-0.4); Lymphocytes Absolute Auto 1.8 X10*3/uL (1.2-4.9); Mean Corpuscular HGB Conc 30.2 g/dl (31.0-35.0); Mean Corpuscular Hemoglobin 22.6 pg (27.0-33.0); Mean Corpuscular Volume 74.7 fL (80.0-98.0); NRBC Abs Auto 0.000 X10*3/uL (0.0-0.012); NRBC Pct Auto 0.0 /100WBC (0.0-0.2); Platelet Count 323 X10*3/uL (160-400); Red Blood Count 3.76 X10*6/uL (4.20-5.50); White Blood Count 4.5 X10*3/uL (4.8-10.8)
--- OUTSIDE RECORDS SUMMARY | 2025-08-01 14:03 | XMS_ITS | Encounter Summary ---
Author Organization [employer] Address [address] [facility] 7t [place] [address] Care Team Providers Care Calender Machine Operator Helper Name Role Phone Kadi Tomlin MD Primary Care Provider [phone] Encounter Details Date Type Department Care Team (Late st Contact Info) Description 11/28/2022 Orders Only [facility] MEDICINE [address] [place], [place] [phone] Kadi Tomlin MD [address] [place], [place] [phone] Other hyperlipidemia (Primary Dx); Pain of lower [...] Description 08/28/2025 2:15 PM EST Office Visit [facility] MEDICINE [address] [place] [address] Kadi Tomlin MD [address] [place] [address] documented as of this encounter Procedures Procedure [...] AM EDT Narrative 12/17/2022 8:44 AM EDT [address] [address] XRay Report Signed Patient: Danika Morales MR#: [id number] 2 : 1965 Acct:[id number] Age/Sex: 57 / F ADM Date: 12/10/22 Loc: RAYO Attending Dr: Kadi Tomlin MD Ordering Physician: Kadi Tomlin Date of Service: 12/10/22 Procedure(s): XR wrist LT min 3V Accession Number(s): [id number] cc: Kadi Tomlin EXAMINATION: XR ELBOW, LEFT [...] in OV> 12/17/22 0841 DD/ 1048 TD/TT: Coat Joiner Lockstitch: BLANCA Procedure Note Donotuseinterpreter, Image - 01/05/2023 [place] [address] XRay Report Signed Patient: Koby Morales#: [id number] 2 : 1965Acct:[id number] Age/Sex: 57 / FADM Date: 12/10/22 Loc: HO.GLADIS Attending Dr: Kadi Tomlin MD Ordering Physician: Kadi Tomlin Date of Service: 12/10/22 Procedure(s): XR wrist LT min 3V Accession Number(s): [id number] cc: Kadi Tomlin EXAMINATION: XR ELBOW, LEFT [...] in OV> 12/17/22 08 DD/ 1048 TD/TT: Coat Joiner Lockstitch: BLANCA [facility] External Provider IMG XR PROCEDURES Final Result * XR Elbow 1-2 Views Left (12/10/2022 10:48 AM EDT) Anatomical Region Laterality Modality Upper Extremities, Elbow Left Radiogr aphic Imaging 12/10/2022 10:4 8 AM EDT Narrative 12/17/2022 8:44 AM EDT [place] [address] XRay Report Signed Patient: Danika Morales MR#: [id number] 2 : 1965 Acct:[id number] Age/Sex: 57 / F ADM Date: 12/10/22 Loc: RAYO Attending Dr: Kadi Tomlin MD Ordering Physician: Kadi Tomlin Date of Service: 12/10/22 Procedure(s): XR elbow LT 2V Accession Number(s): [id number] cc: Kadi Tomlin EXAMINATION: XR ELBOW, LEFT [...] in OV> 12/17/22 0841 DD/ 1048 TD/TT: Coat Joiner Lockstitch: BLANCA Procedure Note Donotuseinterpreter, Image - 12/17/[address] [address] XRay Report Signed Patient: Koby Morales#: [id number] 2 : 1965Acct:[id number] Age/Sex: 57 / FADM Date: 12/10/22 Loc: HO.GLADIS Attending Dr: Kadi Tomlin MD Ordering Physician: Kadi Tomlin Date of Service: 12/10/22 Procedure(s): XR elbow LT 2V Accession Number(s): [id number] cc: Kadi Tomlin EXAMINATION: XR ELBOW, LEFT [...] in OV> 12/17/22 0841 DD/ 1048 TD/TT: Coat Joiner Lockstitch: BLANCA [facility] External Provider IMG XR PROCEDURES Final Result * XR Shoulder 2+ Views Left (12/10/2022 10:48 AM EDT) Anatomical Region Laterality Modality Upper Extremities, Shoulder Left Radi ographic Imaging 12/10/2022 10:4 8 AM EDT Narrative 12/17/2022 8:44 AM EDT [address] [address] XRay Report Signed Patient: Danika Morales MR#: [id number] 2 : 1965 Acct:[id number] Age/Sex: 57 / F ADM Date: 12/10/22 Loc: RAYO Attending Dr: Kadi Tomlin MD Ordering Physician: Kadi Tomlin Date of Service: 12/10/22 Procedure(s): XR shoulder LT min 2V Accession Number(s): [id number] cc: Kadi Tomlin EXAMINATION: XR ELBOW, LEFT [...] in OV> 12/17/22 0841 DD/ 1048 TD/TT: Coat Joiner Lockstitch: [facility] Procedure Note Donotuseinterpreter, Image - 12/17/[address] [address] XRay Report Signed Patient: Jess MoralesR#: [id number] 2 : 1965Acct:[id number] Age/Sex: 57 / FADM Date: 12/10/22 Loc: RAYO Attending Dr: Kadi Tomlin MD Ordering Physician: Kadi Tomlin Date of Service: 12/10/22 Procedure(s): XR shoulder LT min 2V Accession Number(s): [id number] cc: Kadi Tomlin EXAMINATION: XR ELBOW, LEFT [...] in OV> 12/17/22 0841 DD/ 1048 TD/TT: Coat Joiner Lockstitch: BLANCA [facility] External Provider IMG XR PROCEDURES Final Result documented in this encounter Visit Diagnoses Diagnosis Other hyperlipidemia- Primary Pain of lower extremity, unspecified laterality documented in this encounter Additional Health Concerns Assessment Noted Time PHQ-9 Depression Total Score: 7 11/11/19 23 8:54 AM EST documented as of this encounter Care Teams Calender Machine Operator Helper Relationship Specialty Start Date End Date Kadi Tomlin MD [address] [place] [address] PCP - General Family Medicine 05/21/21 documented as of this encounter
--- OUTSIDE RECORDS SUMMARY | 2025-08-01 14:03 | XMS_ITS | Encounter Summary ---
Author Organization [employer] Address [address] [facility] 7t [place] [address] Care Team Providers Care Granulator Tender Name Role Phone Kadi Tomlin MD Primary Care Provider [phone] Encounter Details Date Type Department Care Team (Late st Contact Info) Description 08/01/2025 Orders Only GENERIC EXTERNAL DATA DEPARTMENT Provider, [...] Description 08/28/2025 2:15 PM EST Office Visit [facility] [address] [place], [place] [phone] Kadi Tomlin MD [address] [place], [place] [phone] documented as of this encounter Procedures Procedure Name Priority Date/Time Associated Diagnosis Comments CBC WITH AUTO DIFFERENTIAL Routine 08/01/2025 12:18 PM EST documented in this encounter Results * (ABNORMAL) CBC auto differential (08/01/2025 12:18 PM EST) White Blood Count 4.5(L) 4.8 - 10.8 X10*3/uL [facility] Red Blood Count 3.76(L) 4.20 - 5.50 X10*6/uL [facility] Hemoglobin 8.5(L) 12.0 - 16.0 g/dl [facility] Hematocrit 28.1(L) 37.0 - 47.0 % [facility] Mean Corpuscular Volume 74.7(L) 80.0 - 98.0 fL [facility] Mean Corpuscular Hemoglobin 22.6(L) 27.0 - 33.0 pg [facility] Mean Corpuscular HGB Conc 30.2(L) 31.0 - 35.0 g/dl [facility] Red Cell Distribution Width 18.7(H) 11.0 - 16.0 % [facility] Platelet Count 323 160 - 400 X10*3/uL [facility] Mean Platelet Volume 10.1 9.4 - 12.3 fL [facility] Neutrophils Percent Auto 49.0 45 - 73 % [facility] Imm Gran Pct Auto 0.2 0.0 - 0.4 % [facility] Lymphocytes Percent Auto 39.1 20 - 40 % [facility] Monocytes Percent Auto 7.7 2 - 11 % [facility] Eosinophils Percent Auto 3.1 0 - 4 % [facility] Basophils Percent Auto 0.9 0 - 2 % [facility] NRBC Pct Auto 0.0 0.0 - 0.2 /100WBC [facility] Neutrophils Absolute Auto 2.2 2.0 - 8.3 x10*3/uL [facility] Imm Gran Abs Auto 0.01 0.00 - 0.03 X10*3/uL [facility] Lymphocytes Absolute Auto 1.8 1.2 - 4.9 X10*3/uL [facility] Monocytes Absolute Auto 0.4 0.1 - 1.2 X10*3/uL [facility] Eosinophils Absolute Auto 0.1 0.0 - 0.4 X10*3/uL [facility] Basophils Absolute Auto 0.0 0.0 - 0.2 X10*3/uL [facility] NRBC Abs Auto 0.000 0.0 - 0.012 X10*3/uL [facility] 08/01/2025 12:1 8 PM EST 08/01/2025 1:34 PM EST us Generic External Data Provider LAB BLOOD ORDERAB LES Final Result [facility] [address] [place], [place] [phone] documented in this encounter Visit Diagnoses Not on filedocumented in this encounter Additional Health Concerns Assessment Noted Time PHQ-9 Depression Total Score: 15 03/28/ 024 9:17 AM EDT documented as of this encounter Care Teams Granulator Tender Relationship Specialty Start Date End Date Kadi Tomlin MD [address] [place] [phone] PCP - General Family Medicine 05/21/21 documented as of this encounter
--- OUTSIDE RECORDS SUMMARY | 2025-08-01 14:03 | XMS_ITS | Encounter Summary ---
Author Organization [employer] Address [address] [facility] 7t [place] [address] Care Team Providers Care Specialty Department Supervisor Name Role Phone Kadi Tomlin MD Primary Care Provider [phone] Encounter Details Date Type Department Care Team (Late Contact Info) Description 06/19/2023 Orders Only [facility] [address] [place] [address] [phone] Kadi Tomlin MD [address] [place] [address] [phone] Social History Tobacco Use Types Packs/Day Years [...] Description 08/28/2025 2:15 PM EST Office Visit [facility] [address] [place] [address] [phone] Kadi Tomlin MD [address] [place] [address] [phone] documented as of this encounter Visit Diagnoses Not on filedocumented in this encounter Additional Health Concerns Assessment Noted Time PHQ-9 Depression Total Score: 7 05/18/20 23 3:02 PM EDT documented as of this encounter Care Teams Specialty Department Supervisor Relationship Specialty Start Date End Date Kadi Tomlin MD [address] [place] [address] PCP - General Family Medicine 05/21/21 documented as of this encounter
--- OUTSIDE RECORDS SUMMARY | 2025-08-01 14:03 | XMS_ITS | Encounter Summary ---
Author Organization [facility] Address [address] [facility] 7t [place] [address] Care Team Providers Care Accounting Lecturer Name Role Phone Kadi Tomlin MD Primary Care Provider [phone] Reason for Visit * Reason Onset Date Comments Nurse Triage 04/05/2024 Encounter Details Date Type Department Care Team (Late st Contact Info) Description 04/05/2024 Telephone [facility] [address] [place], [place] [phone] Kadi Tomlin MD [address] [place], [place] [phone] Nurse Triage Social History Tobacco Use Types [...] 04/05/2024 12:14 PM EDT Triage call with [employer] [place] [id number] Pt reports low blood pressure of 106/80 [...] fordays. Pt is advised to come to [facility] today to be seen by provider and [...] accepted this outcome Please contact pt @ [phone] Croatian Speaker documented in this encounter Plan of Treatment Upcoming Encounters Date Type Department Care Team (Late st Contact Info) Description 08/28/2025 2:15 PM EST Office Visit [facility] [address] [place] [address] Kadi Tomlin MD [address] [place] [address] documented as of this encounter Visit Diagnoses Not on filedocumented in this encounter Additional Health Concerns Assessment Noted Time PHQ-9 Depression Total Score: 15 024 9:17 AM EDT documented as of this encounter Care Teams Accounting Lecturer Relationship Specialty Start Date End Date Kadi Tomlin MD [address] [place] [address] PCP - General Family Medicine 05/21/21 documented as of this encounter
--- OUTSIDE RECORDS SUMMARY | 2025-08-01 14:03 | XMS_ITS | Encounter Summary ---
Author Organization [employer] Address 75 [facility] 7t [place] [address] Care Team Providers Care Label Stamper Name Role Phone Kadi Tomlin MD Primary Care Provider [phone] Encounter Details Date Type Department Care Team (Latest Contact Info) Description 08/01/2025 Travel Social History Tobacco Use Types Packs/Day [...] 2:15 PM EST Office Visit [facility] [address] [place] [address] Kadi Tomlin MD [address] [place] [address] documented as of this encounter Visit Diagnoses Not on filedocumented in this encounter Additional Health Concerns Assessment Noted Time PHQ-9 Depression Total Score: 15 024 9:17 AM EDT documented as of this encounter Care Teams Label Stamper Relationship Specialty Start Date End Date Kadi Tomlin MD [address] [place] [phone] PCP - General Family Medicine 05/21/21 documented as of this encounter
--- OUTSIDE RECORDS SUMMARY | 2025-08-01 14:03 | XMS_ITS | Encounter Summary ---
Author Organization [employer] Address [address] [facility] 7t [place] [address] Care Team Providers Care Irrigation Tax Assessor Collector Name Role Phone Kadi Tomlin MD Primary Care Provider [phone] Encounter Details Date Type Department Care Team (Late st Contact Info) Description 11/03/2024 Orders Only [facility] [address] [place], [place] [phone] ProviderTracey MD Social History Tobacco Use Types [...] 2:15 PM EST Office Visit [facility] [address] [place] [phone] Kadi Tomlin MD [address] [place] [phone] documented as of this encounter Procedures Procedure [...] documented as of this encounter Care Teams Irrigation Tax Assessor Collector Relationship Specialty Start Date End Date Kadi Tomlin MD [address] [place] [phone] PCP - General Family Medicine 05/21/21 documented as of this encounter
--- OUTSIDE RECORDS SUMMARY | 2025-08-01 14:03 | XMS_ITS | Encounter Summary ---
Author Organization [employer] Address [address] [facility] 7t [place] [address] Care Team Providers Care Dressmaker Garment Fitter Name Role Phone Kadi Tomlin MD Primary Care Provider [phone] Encounter Details Date Type Department Care Team (Late st Contact Info) Description 08/17/2023 Abstract [facility] [address] [place] [phone] Denisse Castillo Social History Tobacco Use Types [...] Description 08/28/2025 2:15 PM EST Office Visit [facility] [address] [place] [address] Kadi Tomlin MD [address] [place] [address] documented as of this encounter Visit Diagnoses Not on filedocumented in this encounter Additional Health Concerns Assessment Noted Time PHQ-9 Depression Total Score: 9 07/20/20 23 2:18 PM EDT documented as of this encounter Care Teams Dressmaker Garment Fitter Relationship Specialty Start Date End Date Kadi Tomlin MD [address] [place] [address] PCP - General Family Medicine 05/21/21 documented as of this encounter
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
--- OUTSIDE RECORDS SUMMARY | 2025-08-01 14:03 | XMS_ITS | Encounter Summary ---
Author Organization [employer] Address 75 [facility] 7t [place] [address] Care Team Providers Care Drilling Fluids Specialist Name Role Phone Kadi Tomlin MD Primary Care Provider [phone] Reason for Visit * Reason Onset Date Comments ER Follow-up 07/31/2025 Encounter Details Date Type Department Care Team (Late st Contact Info) Description 07/31/2025 Telephone [facility] [address] [place], [place] [phone] Kadi Tomlin MD [address] [place], [place] [phone] ER Follow-up Social History Tobacco Use Types Packs/Day Years [...] encounter Miscellaneous Notes * Telephone Encounter - Lore Schulte RN - 08/01/2025 9:45 AM EST [facility] note reviewed. Pt. In ED fall while on sleeping medication, hit back of head and had R shoulderand L knee pain. X-rays and CT head WNL. Pt. Diagnosis head injury and anemia with hemoglobin 8.2. No new meds prescribed. TC placed to pt. Pt. Reports she has had constant headache since in ED and R shoulder is still painful. Pt. Denies any N/V, confusion, vision changes. Pt. Reports she is unable to lift R arm above head and has decreased ROM. Pt. Reports she has been taking APAP at home without positive effect. Pt. Agrees to f/up appointment today at 11:45am with Dr Mary Jo Can * Telephone Encounter - Noris Oliveira - 07/31/2025 10:30 AM EST Patient calling to report ED visit on : Date: 07/29 Hospital: [facility] Seen for: Fall / pass out Symptomatic No *if yes message should go to Triage Patient advised will forward to team nurse for follow up Contact pt at [phone] Need linux network systems administrator documented in this encounter Plan of Treatment Upcoming Encounters Date Type Department Care Team (Late st Contact Info) Description 08/28/2025 2:15 PM EST Office Visit [facility] [address] [place] [address] Kadi Tomlin MD [address] [place] [address] documented as of this encounter Visit Diagnoses Not on filedocumented in this encounter Additional Health Concerns Assessment Noted Time PHQ-9 Depression Total Score: 15 024 9:17 AM EDT documented as of this encounter Care Teams Drilling Fluids Specialist Relationship Specialty Start Date End Date Kadi Tomlin MD [address] [place] [address] PCP - General Family Medicine 05/21/21 documented as of this encounter
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
--- OUTSIDE RECORDS SUMMARY | 2025-08-01 14:03 | XMS_ITS | Encounter Summary ---
Author Organization [employer] [facility] Address [address] [place] [address] 7t [place] [address] Care Team Providers Care Car Pincher Name Role Phone Kadi Tomlin MD Primary Care Provider [phone] Encounter Details Date Type Department Care Team ([facility] Contact Info) Description 05/28/2023 Orders Only [facility] [address] [place] [address] [phone] ProviderTracey MD Social History Tobacco Use Types [...] Description 08/28/2025 2:15 PM EST Office Visit [facility] [address] [place] [address] [phone] Kadi Tomlin MD [address] [place] [address] [phone] documented as of this encounter Procedures Procedure [...] documented as of this encounter Care Teams Car Pincher Relationship Specialty Start Date End Date Kadi Tomlin MD [address] [place] [address] PCP - General Family Medicine 05/21/21 documented as of this encounter
--- OUTSIDE RECORDS SUMMARY | 2025-08-01 14:03 | XMS_ITS | Encounter Summary ---
Author Organization [employer] Address [address] [place] [address] 7t [place] [address] Care Team Providers Care Burn Out Tender Lace Name Role Phone Kadi Tomlin MD Primary Care Provider [phone] Reason for Visit * Reason Onset Date Comments Appointment Request 12/25/2022 Encounter Details Date Type Department Care Team (Late st Contact Info) Description 12/25/2022 Telephone [facility] [address] [place], [place] [phone] Kadi Tomlin MD [address] [place], [place] [phone] Appointment Request Social History Tobacco Use Types [...] schedule an appt Please contact pt at [phone] documented in this encounter Plan of Treatment Upcoming Encounters Date Type Department Care Team (Late st Contact Info) Description 08/28/2025 2:15 PM EST Office Visit [facility] [address] [place] [address] Kadi Tomlin MD [address] [place], [place] [phone] documented as of this encounter Visit Diagnoses Not on filedocumented in this encounter Additional Health Concerns Assessment Noted Time PHQ-9 Depression Total Score: 7 11/11/19 23 8:54 AM EST documented as of this encounter Care Teams Burn Out Tender Lace Relationship Specialty Start Date End Date Kadi Tomlin MD [address] [place], [place] [phone] PCP - General Family Medicine 05/21/21 documented as of this encounter
--- OUTSIDE RECORDS SUMMARY | 2025-08-01 14:03 | XMS_ITS | Encounter Summary ---
Author Organization [employer] Address [address] [facility] 7t [place] [address] Care Team Providers Care Social Work Instructor Name Role Phone Kadi Tomlin MD Primary Care Provider [phone] Reason for Visit * Reason Onset Date Comments Appointment Request 03/27/2023 Encounter Details Date Type Department Care Team (Late Contact Info) Description 03/27/2023 Telephone [facility] [address] [place] [address] Kadi Tomlin MD [address] [place], [place] [phone] Appointment Request Social History Tobacco Use Types [...] with Enoc Boles. Please contact pt at [phone] documented in this encounter Plan of Treatment Upcoming Encounters Date Type Department Care Team (Late Contact Info) Description 08/28/2025 2:15 PM EST Office Visit [facility] [address] [place] [address] Kadi Tomlin MD [address] [place] [address] documented as of this encounter Visit Diagnoses Not on filedocumented in this encounter Additional Health Concerns Assessment Noted Time PHQ-9 Depression Total Score: 9 01/09/20 23 9:12 AM EDT documented as of this encounter Care Teams Social Work Instructor Relationship Specialty Start Date End Date Kadi Tomlin MD [address] [place], [place] [phone] PCP - General Family Medicine 05/21/21 documented as of this encounter
--- OUTSIDE RECORDS SUMMARY | 2025-08-01 14:03 | XMS_ITS | Encounter Summary ---
Author Organization [employer] Address [address] [place] [address] 7t [place] [address] Care Team Providers Care Wool Classer Name Role Phone Kadi Tomlin MD Primary Care Provider [phone] Reason for Visit * Reason Comments Med Refill Encounter Details Date Type Department Care Team (Late Contact Info) Description 03/25/2023 Refill [facility]S [address] [place], [place] [phone] Enoc Boles FNP Depressive disorder Social History [...] Visit [facility]ICINE [address] [place] [address] Kadi Tomlin MD [address] [place], [place] [phone] documented as of this encounter Visit Diagnoses Diagnosis Depressive disorder Depressive disorder, not elsewhere classified documented in this encounter Additional Health Concerns Assessment Noted Time PHQ-9 Depression Total Score: 9 01/09/20 23 9:12 AM EDT documented as of this encounter Care Teams Wool Classer Relationship Specialty Start Date End Date Kadi Tomlin MD [address] [place] [address] PCP - General Family Medicine 05/21/21 documented as of this encounter
--- OUTSIDE RECORDS SUMMARY | 2025-08-01 14:03 | XMS_ITS | Encounter Summary ---
Author Organization [employer] Address 75 [facility] 7t [place] [address] Care Team Providers Care Manager Statistical Name Role Phone Kadi Tomlin MD Primary Care Provider [phone] Encounter Details Date Type Department Care Team [...] Description 08/28/2025 2:15 PM EST Office Visit [facility] MEDICINE [address] [place], [place] [phone] Kadi Tomlin MD [address] [place], [place] [phone] documented as of this encounter Procedures Procedure [...] Laterality Modality Lower Extremities, Knee Left [facility] 07/29/2025 12:4 7 PM EST Narrative 07/29/2025 12:49 PM EST [address] [address] XRay Report Signed Patient: Danika Morales MR#: [id number] 2 : 1965 Acct:[id number] Age/Sex: 59 / F ADM Date: 07/29/25 Loc: .ED Attending Dr: Ordering Physician: Generic ED Physician Date of Service: 07/29/25 Procedure(s): XR knee LT 4V Accession Number(s): [id number] cc: Generic ED Physician; [facility] Reason for Exam: fall CLINICAL [...] OV> 07/29/25 1248 DD/ 1247 TD/TT: 07/29/251246 Is Project Manager: Procedure Note Gastonter, Image - 07/29/2025 [place] [address] XRay Report Signed Patient: Koby Morales#: [id number] 2 : 1965Acct:[id number] Age/Sex: 59 / FADM Date: 07/29/25 Loc: .ED Attending Dr: Ordering Physician: Generic ED Physician Date of Service: 07/29/25 Procedure(s): XR knee LT 4V Accession Number(s): [id number] cc: [facility] ED Physician; [facility] Reason for Exam: fall CLINICAL [...] OV> 07/29/25 1248 DD/ 1247 TD/TT: 07/29/251246 Is Project Manager: [facility] External Provider IMG XR PROCEDURES Final Result * XR Shoulder 2+ Views Right (07/29/2025 12:45 PM EST) Anatomical Region Laterality Modality Upper Extremities, Shoulder Right Radi ographic Imaging 07/29/2025 12:4 5 PM EST Narrative 07/29/2025 12:48 PM EST [address] [address] XRay Report Signed Patient: Danika Morales MR#: [id number] 2 : 1965 Acct:[id number] Age/Sex: 59 / F ADM Date: 07/29/25 Loc: HO.ED Attending Dr: Ordering Physician: Generic ED Physician Date of Service: 07/29/25 Procedure(s): XR shoulder RT min 2V Accession Number(s): [id number] cc: Generic ED Physician; [facility] Reason for Exam: fall CLINICAL [...] 07/29/25 1247 DD/ 1245 TD/TT: 07/29/25 1245 Is Project Manager: Procedure Note Donotuseinterpreter, Image - 07/29/[address] [address] XRay Report Signed Patient: Jess MoralesR#: [id number] 2 : 1965Acct:[id number] Age/Sex: 59 / FADM Date: 07/29/25 Loc: HO.ED Attending Dr: Ordering Physician: Generic ED Physician Date of Service: 07/29/25 Procedure(s): XR shoulder RT min 2V Accession Number(s): [id number] cc: Generic ED Physician; [facility] Reason for Exam: fall CLINICAL HISTORY: fall 3 view right shoulder Comparison: None provided Findings: Bones intact. No dislocations. No significant arthritic change. No erosions. No radiopaque foreign body. IMPRESSION: 1. No acute findings This document has been electronically signed by: Hnug Bull MD on 07/29/2025 12:45:27 Dictated By: Hung Bull MD Signed By: <Electronically signed by Hung Bull MD in OV> 07/29/25 1247 DD/ 1245 TD/TT: 07/29/25 1245 Is Project Manager: [facility] External Provider IMG XR PROCEDURES Final Result * (ABNORMAL) Comprehensive Metabolic Panel (07/29/2025 12:03 PM EST) Sodium 139 135 - 145 mmol/L [facility] Potassium 3.5 3.3 - 5.1 mmol/L [facility] Chloride 104 96 - 108 mmol/L [facility] Carbon Dioxide 24 22 - 29 mmol/L [facility] Anion Gap 15 12 - 20 [facility] Urea Nitrogen (BUN) 13 9 - 16 mg/dL [facility] Creatinine, Serum 1.04 0.5 - 1.4 mg/dL [facility] Creatinine Clr Calc Pharmacy 61.2 [facility] Comment:Provided height and weight: 162.56 cm,80.5 kg.eGFR (calculated from the MDRD study equation) and eCrCl(calculated from the Cockcroft-Gault equation) are based ondifferent parameters and may not yield comparable results.If eCrCl result is absurd, please check patient'sheight/weight. Estimated Glomerular Filt Rate 55 [facility] Comment:Chronic Kidney Disea se: Estimated GFR < 60 mL/min/1.66h4Pyjbgg Kidney Disease: Estimated GFR < 15 mL/min/1.73m2 Glucose 88 60 - 115 mg/dL [facility] Calcium 9.8 8.4 - 10.2 mg/dL [facility] Bilirubin, Total 0.3 0.0 - 1.0 mg/dL [facility] Aspartate Amino Transferase 33(H) 5 - 31 U/L [facility] Alanine Aminotransferase 26 0 - 31 U/L [facility] Total Protein 7.4 6.5 - 8.0 g/dL [facility] Albumin Level 4.2 3.5 - 5.0 g/dL [facility] Alkaline Phosphatase 134(H) 39 - 117 U/L [facility] 07/29/2025 12:0 3 PM EST 07/29/2025 12:07 PM EST us Generic External Data Provider LAB BLOOD ORDERAB LES Final Result [facility] [address] [place] [phone] [phone] * (ABNORMAL) CBC auto differential (07/29/2025 12:03 PM EST) White Blood Count 7.4 4.8 - 10.8 X10*3/uL [facility] Red Blood Count 3.64(L) 4.20 - 5.50 X10*6/uL [facility] Hemoglobin 8.2(L) 12.0 - 16.0 g/dl [facility] Hematocrit 26.6(L) 37.0 - 47.0 % [facility] Mean Corpuscular Volume 73.1(L) 80.0 - 98.0 fL [facility] Mean Corpuscular Hemoglobin 22.5(L) 27.0 - 33.0 pg [facility] Mean Corpuscular HGB Conc 30.8(L) 31.0 - 35.0 g/dl [facility] Red Cell Distribution Width 18.2(H) 11.0 - 16.0 % [facility] Platelet Count 308 160 - 400 X10*3/uL [facility] Mean Platelet Volume 9.5 9.4 - 12.3 fL [facility] Neutrophils Percent Auto 59.6 45 - 73 % [facility] Imm Gran Pct Auto 0.3 0.0 - 0.4 % [facility] Lymphocytes Percent Auto 31.1 20 - 40 % [facility] Monocytes Percent Auto 7.1 2 - 11 % [facility] Eosinophils Percent Auto 1.4 0 - 4 % [facility] Basophils Percent Auto 0.5 0 - 2 % [facility] NRBC Pct Auto 0.0 0.0 - 0.2 /100WBC [facility] Neutrophils Absolute Auto 4.4 2.0 - 8.3 x10*3/uL [facility] Imm Gran Abs Auto 0.02 0.00 - 0.03 X10*3/uL [facility] Lymphocytes Absolute Auto 2.3 1.2 - 4.9 X10*3/uL [facility] Monocytes Absolute Auto 0.5 0.1 - 1.2 X10*3/uL [facility] Eosinophils Absolute Auto 0.1 0.0 - 0.4 X10*3/uL [facility] Basophils Absolute Auto 0.0 0.0 - 0.2 X10*3/uL [facility] NRBC Abs Auto 0.000 0.0 - 0.012 X10*3/uL [facility] 07/29/2025 12:0 3 PM EST 07/29/2025 12:07 PM EST us Generic External Data Provider LAB BLOOD ORDERAB LES Final Result [facility] [address] [place] [address] [phone] documented in this encounter Visit Diagnoses Not on filedocumented in this encounter Additional Health Concerns Assessment Noted Time PHQ-9 Depression Total Score: 15 024 9:17 AM EDT documented as of this encounter Care Teams Manager Statistical Relationship Specialty Start Date End Date Kadi Tomlin MD [address] [place] [address] PCP - General Family Medicine 05/21/21 documented as of this encounter
[2025-08-01 14:30] LABS: Anion Gap 12 (12-20); Blood Urea Nitrogen 14 mg/dL (9-16); Calcium 9.8 mg/dL (8.4-10.2); Carbon Dioxide 29 mmol/L (22-29); Chloride 104 mmol/L (96-108); Estimated Glomerular Filt Rate > 60; Iron 18 mcg/dL (30-160); Percent Iron Saturation 5 % (15-50); Potassium 3.7 mmol/L (3.3-5.1); Sodium 141 mmol/L (135-145); Total Iron Binding Capacity 338 mcg/dL (228-428); Unsaturated Iron Binding 320 ug/dL
[2025-08-01 14:44] LABS: Ferritin 7 ng/mL (10-250)
[2025-08-01 14:55] LABS: Folate 6.5 ng/mL (> or = 4.0); Vitamin B12 477 pg/mL (200-900)
[2025-08-04 14:12] LABS: Hematocrit 28.3 % (35.0-45.0); Hemoglobin 8.5 g/dL (11.7-15.5); MCH 22.8 pg (27.0-33.0); MCV 76.1 fL (80.0-100.0); RBC 3.72 Million/uL (3.80-5.10); RDW 18.3 % (11.0-15.0)
== END 2025-08-01 12:14 | disposition home or self-care (01) ==
LOC: HO.HHCL 12:13
PROVIDERS: Internal Medicine Gastroenterology; PCP General Practice; Visit Provider Family Medicine
DX: Z12.11 Encounter for screening for malignant neoplasm of colon (principal); D64.9 Anemia, unspecified; M25.511 Pain in right shoulder
CPT/HCPCS: 36415; 72040; 80048; 82607; 82728; 82746; 83020; 83540; 85014; 85018; 85025; 85041

== ENCOUNTER → 2025-08-01 14:28 | Outpatient (BNV) | payer MEDICAID, SELFPAY | PROVIDERS: PCP General Practice; Visit Provider Radiology Diagnostic Radiology | DX: M47.812 Spondylosis without myelopathy or radiculopathy, cervical region (principal) | CPT/HCPCS: 72040 ==

== ENCOUNTER 2025-08-28 15:04 | Outpatient (REF) | payer MEDICAID, SELFPAY ==
--- OUTSIDE RECORDS SUMMARY | 2025-08-28 14:15 | XMS_ITS | Encounter Summary ---
Author Organization [employer] Address [address] [facility] 7t [place] [address] Care Team Providers Care Manufacturing Engineer Automotive Name Role Phone Kadi Tomlin MD Primary Care Provider [phone] Reason for Visit * Reason Comments Follow-up Encounter Details Date Type Department Care Team ([facility] st Contact Info) Description 08/28/2025 2:15 PM EST Office Visit [facility] [address] [place], [place] [phone] Kadi Tomlin MD [address] [place], [place] [phone] Primary hypertension (Primary Dx); Dietary counseling; Exercise counseling; Overweight; Chronic hepatitis C without hepatic coma (HCC); Mild intermittent asthma without complication; Encounter for immunization; Acute cough Social History Tobacco Use Types Packs/Day Years Used Date Smoking Tobacco: Never Passive Smoke Exposure: Never Smokeless Tobacco: Never Alcohol Use Standard Drinks/Week Comments Never 0 (1 standard drink = 0.6 oz pur e alcohol) Depression Answer Date Recorded Patient Health Questionnaire-9 Score 22 08/28/2025 Patient Health Questionnaire-9 Score 22 08/28/2025 Last PHQ-9: Questionnaire Data Not on file 1 10/29/2024 Housing Stability Answer Date Recorded What is [...] Answer Date Recorded Patient Health Questionnaire-2 Score 4 08/28/2025 Internet Access Answer Date Recorded Internet Access [...] Sign Reading Time Taken Comments Blood Pressure 124/80 08/28/2025 3:03 PM EST Pulse 77 08/28/2025 3:03 PM EST Temperature 36.8 C (98.3 F) 08/28/2025 3:03 PM EST Respiratory Rate 20 08/28/2025 3:03 PM EST Oxygen Saturation 98% 08/28/2025 3:03 PM EST Inhaled Oxygen Concentration - - Weight 82.1 kg (181 lb) 08/28/2025 3:03 PM EST Height 162.6 cm (5' 4 ) 08/28/2025 3:03 PM EST Body Mass Index 31.07 08/28/2025 3:03 PM EST documented in this encounter Functional Status * Over the past 2 weeks, how often have you been bothered by any of the following problems? Question Answer Date of Assessment Author Patient Health Questionnaire -2 Score 4 08/28/2025 3:12 PM EST Demetri Branham MA * Little interest or pleasure in doing things Answer Date of Assessment Author Nearly every day 08/28/2025 3:12 PM EST Demetri Branham MA * Feeling down, depressed, or hopeless Answer Date of Assessment Author Several days 08/28/2025 3:12 PM EST Demetri Branham MA * Trouble falling or staying asleep, or sleeping too much Answer Date of Assessment Author Nearly every day 08/28/2025 3:12 PM Demetri Colon MA * Feeling tired or having little energy Answer Date of Assessment Author Nearly every day 08/28/2025 3:12 PM Demetri Colon MA * Poor appetite or overeating Answer Date of Assessment Author Nearly every day 08/28/2025 3:12 PM Demetri Colon MA * Feeling bad about yourself - or that you are a failure or have let yourself or your family down Answer Date of Assessment Author Nearly every day 08/28/2025 3:12 PM Demetri Colon MA * Trouble concentrating on things, such as reading the newspaper or watching television Answer Date of Assessment Author Nearly every day 08/28/2025 3:12 PM Demetri Colon MA * Moving or speaking so slowly that other people could have noticed? Or the opposite - being so fidgety or restless that you have been moving around a lot more than usual. Answer Date of Assessment Author Nearly every day 08/28/2025 3:12 PM Demetri Colon MA * Thoughts that you would be better off or hurting yourself in some way Answer Date of Assessment Author Not at all 08/28/2025 3:12 PM Demetri Colon MA * Patient Health Questionnaire-9 Score Answer Date of Assessment Author 22 08/28/2025 3:12 PM Demetri Colon MA * How difficult have these problems made it for you to do your work, take care of things at home, or get along with other people? Answer Date of Assessment Author Very difficult 08/28/2025 3:12 PM Demetri Colon MA documented as of this encounter Plan of Treatment Not on file documented as of this encounter Procedures Procedure Name Priority Date/Time Associated Diagnosis Comments TSH W/REFLEX TO FT4 Routine 08/28/2025 3 :21 PM EST Primary hypertension CBC WITH AUTO DIFFERENTIAL Routine 08/28/2025 3:21 PM EST Primary hypertension POCT INFLUENZA B (ID NOW RAPID MOLECULAR) Routine 08/28/2025 3:08 PM EST Acute cough POCT INFLUENZA A (ID NOW RAPID MOLECULAR) Routine 08/28/2025 3:08 PM EST Acute cough POC GILBERT ID NOW STREP A Routine 08/28/2025 3:08 PM EST Acute cough POCT RAPID COVID ANTIGEN Routine 08/28/2025 3:08 PM EST Acute cough documented in this encounter Results * (ABNORMAL) CBC auto differential (08/28/2025 3:21 PM EST) White Blood Count 7.8 4.8 - 10.8 X10*3/uL [facility] Red Blood Count 3.96(L) 4.20 - 5.50 X10*6/uL [facility] Hemoglobin 9.0(L) 12.0 - 16.0 g/dl [facility] Hematocrit 29.9(L) 37.0 - 47.0 % [facility] Mean Corpuscular Volume 75.5(L) 80.0 - 98.0 fL [facility] Mean Corpuscular Hemoglobin 22.7(L) 27.0 - 33.0 pg [facility] Mean Corpuscular HGB Conc 30.1(L) 31.0 - 35.0 g/dl [facility] Red Cell Distribution Width 18.5(H) 11.0 - 16.0 % [facility] Platelet Count 289 160 - 400 X10*3/uL [facility] Mean Platelet Volume 10.1 9.4 - 12.3 fL [facility] Neutrophils Percent Auto 57.9 45 - 73 % [facility] Imm Gran Pct Auto 0.3 0.0 - 0.4 % [facility] Lymphocytes Percent Auto 30.1 20 - 40 % [facility] Monocytes Percent Auto 6.7 2 - 11 % [facility] Eosinophils Percent Auto 4.0 0 - 4 % [facility] Basophils Percent Auto 1.0 0 - 2 % [facility] NRBC Pct Auto 0.0 0.0 - 0.2 /100WBC [facility] Neutrophils Absolute Auto 4.5 2.0 - 8.3 x10*3/uL [facility] Imm Gran Abs Auto 0.02 0.00 - 0.03 X10*3/uL [facility] Lymphocytes Absolute Auto 2.4 1.2 - 4.9 X10*3/uL [facility] Monocytes Absolute Auto 0.5 0.1 - 1.2 X10*3/uL [facility] Eosinophils Absolute Auto 0.3 0.0 - 0.4 X10*3/uL [facility] Basophils Absolute Auto 0.1 0.0 - 0.2 X10*3/uL [facility] NRBC Abs Auto 0.000 0.0 - 0.012 X10*3/uL [facility] Blood Venous blood specimen / Unknown 08/28/2025 3:21 PM EST 08/28/2025 4:07 PM EST Kadi Tomlin MD LAB BLOOD ORDERABLES Final Res ult [facility] [address] [place] [phone] * TSH W/Reflex to FT4 (08/28/2025 3:21 PM EST) TSH reflex Free T4 0.60 0.32 - 4.0 uIU/mL [facility] Blood Venous blood specimen / Unknown 08/28/2025 3:21 PM EST 08/28/2025 4:07 PM EST Kadi Tomlin MD LAB BLOOD ORDERABLES Final Res ult [facility] [address] [place] [phone] * POCT Rapid Strep A GILBERT ID NOW (08/28/2025 3:08 PM EST) Rapid Strep A Screen Negative Negative, None Detected QC Media Lot # [id number] Lot# Expiration Date 52 Swab 08/28/2025 3:08 PM EST Kadi Tomlin MD POINT OF CARE TEST ENTER/EDIT ORDERABLES Final Result * POCT Rapid Influenza A GILBERT ID NOW (08/28/2025 3:08 PM EST) [facility] Influenza A Negative Negative, Indeterminate [facility] QC Media Lot # [id number] [facility] Lot# Expiration Date [facility] Swab 08/28/2025 3:08 PM EST Result [facility] Kadi Tomlin MD POINT OF CARE TEST ENTER/EDIT ORDERABLES Final Result Performing Organization Address City/[facility]/ZIP Co de Phone Number [facility] [address] [place] [phone] * POCT Rapid Influenza B GILBERT ID NOW (08/28/2025 3:08 PM EST) [facility] Influenza B Negative Negative, Indeterminate [facility] QC Media Lot # [id number] [facility] Lot# Expiration Date [facility] Swab 08/28/2025 3:08 PM EST Result [facility] Kadi Tomlin MD POINT OF CARE TEST ENTER/EDIT ORDERABLES Final Result [facility] [address] [place] [phone] * POCT Rapid Covid-19 Bin[employer]NOW (08/28/2025 3:08 PM EST) Pathologist [facility] Rapid COVID Ag Negative [facility] QC Media Lot # [id number] [facility] Lot# Expiration Date [id number] [facility] Swab 08/28/2025 3:08 PM EST Kadi Tomlin MD POINT OF CARE TEST ENTER/EDIT ORDERABLES Final Result [facility] [address] [place] [phone] documented in this encounter Visit Diagnoses Diagnosis Primary hypertension- Primary Unspecified essential hypertension Dietary counseling Dietary surveillance and counseling Exercise counseling Overweight Chronic hepatitis C without hepatic coma (HCC) Mild intermittent asthma without complication Encounter for immunization Acute cough documented in this encounter Additional Health Concerns Assessment Noted Time PHQ-9 Depression Total Score: 22 025 3:12 PM EST documented as of this encounter Care Teams Manufacturing Engineer Automotive Relationship Specialty Start Date End Date Kadi Tomlin MD [address] [place] [address] PCP - General Family Medicine 05/21/21 documented as of this encounter
[2025-08-28 16:17] LABS: MANUAL DIFF FLAG NO
[2025-08-28 16:41] LABS: Hematocrit 29.9 % (37.0-47.0); Hemoglobin 9.0 g/dl (12.0-16.0); Imm Gran Abs Auto 0.02 X10*3/uL (0.00-0.03); Imm Gran Pct Auto 0.3 % (0.0-0.4); Lymphocytes Absolute Auto 2.4 X10*3/uL (1.2-4.9); Mean Corpuscular HGB Conc 30.1 g/dl (31.0-35.0); Mean Corpuscular Hemoglobin 22.7 pg (27.0-33.0); Mean Corpuscular Volume 75.5 fL (80.0-98.0); NRBC Abs Auto 0.000 X10*3/uL (0.0-0.012); NRBC Pct Auto 0.0 /100WBC (0.0-0.2); Platelet Count 289 X10*3/uL (160-400); Red Blood Count 3.96 X10*6/uL (4.20-5.50); White Blood Count 7.8 X10*3/uL (4.8-10.8)
[2025-08-28 17:13] LABS: Ferritin 6 ng/mL (10-250)
[2025-08-28 18:12] LABS: Folate 7.5 ng/mL (> or = 4.0); Vitamin B12 400 pg/mL (200-900)
--- OUTSIDE RECORDS SUMMARY | 2025-08-29 00:36 | XMS_ITS ---
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 history exists Hepatitis B Vaccines Completed 12/01/2005, 10/31/2005, 11/02/2000, [...] Diagnosis Comments CBC WITH AUTO DIFFERENTIAL Routine 08/28/2025 3:21 PM EST Primary hypertension TSH W/REFLEX TO FT4 Routine 08/28/2025 3 :21 PM EST Primary hypertension FERRITIN Routine 08/28/2025 3:21 PM EST Anemia, unspecified type VITAMIN B12/FOLATE, SERUM PANEL Routine 08/28/2025 3:21 PM EST Anemia, unspecified type POC GILBERT ID NOW STREP A Routine 08/28/2025 3:08 PM EST Acute cough POCT INFLUENZA A (ID NOW RAPID MOLECULAR) Routine 08/28/2025 3:08 PM EST Acute cough POCT INFLUENZA B (ID NOW RAPID MOLECULAR) Routine 08/28/2025 3:08 PM EST Acute cough POCT RAPID COVID ANTIGEN Routine 08/28/2025 3:08 PM EST Acute cough XR CERVICAL SPINE 3V Routine 08/01/2025 2:28 PM EST HEMOGLOBIN ELECTROPHORESIS Routine 08/01/2025 12:18 PM EST VITAMIN B12/FOLATE, SERUM PANEL Routine 08/01/2025 12:18 PM EST FERRITIN Routine 08/01/2025 12:18 PM EST CBC WITH AUTO DIFFERENTIAL Routine 08/01/2025 12:18 PM EST BASIC METABOLIC PANEL Routine 08/01/2025 12:18 PM EST Anemia, unspecified type IRON AND TOTAL IRON BINDING CAPACITY Routine 08/01/2025 12:18 PM EST Anemia, unspecified type CT HEAD WO CONTRAST Routine 07/29/2025 1 :[address] CERVICAL SPINE WO CONTRAST Routine 07/29/2025 1:00 PM EST XR KNEE 4+ VIEWS LEFT [...] Recently Relevant to Health Maintenance Results * Vitamin B12 (Cobalamin) and Folate Panel, Serum (08/28/2025 3:21 PM EST) Only the most recent of2 resultswithin the time period is included. Pathologist [facility] Vitamin B12 400 200 - 900 pg/mL [facility] Comment:NORMAL 200-900 PG/ML INDETERMINATE 160-199 PG/ML DEFICIENT < 160 PG/ML Folate 7.5 > or = 4.0 ng/mL [facility] Comment:Reference Values:> o r = 4.0 ng/mL< 4.0 ng/mL suggests folate deficiency Methotrexate, aminopterin and folinic acid(leucovorin) are chemotherapeutic agents whose molecularstructures are similar to folate; therefore, the Architectfolate assay cannot be used for patients using these drugs. Blood 08/28/2025 3:21 PM EST 08/28/2025 4:07 PM EST us Vicky Can DO LAB BLOOD ORDERABLES Final R esult Performing Organization Address [facility]/ZIP Co de Phone Number [facility] [address] [place] [phone] * TSH W/Reflex to FT4 (08/28/2025 3:21 PM EST) [facility] TSH reflex Free T4 0.60 0.32 - 4.0 uIU/mL [facility] Blood Venous blood specimen / Unknown 08/28/2025 3:21 PM EST 08/28/2025 4:07 PM EST us Kadi Tomlin MD LAB BLOOD ORDERABLES Final Res ult Performing Organization Address City/[facility]/ZIP Co de Phone Number [facility] [address] [place] [address] [phone] * (ABNORMAL) CBC auto differential (08/28/2025 3:21 PM EST) Only the most recent of3 resultswithin the time period is included. Pathologist [facility] White Blood Count 7.8 4.8 - 10.8 X10*3/uL [facility] Red Blood Count 3.96(L) 4.20 - 5.50 X10*6/uL [facility] Hemoglobin 9.0(L) 12.0 - 16.0 g/dl [facility] Hematocrit 29.9(L) 37.0 - 47.0 % [facility] Mean Corpuscular Volume 75.5(L) 80.0 - 98.0 fL [facility] Mean Corpuscular Hemoglobin 22.7(L) 27.0 - 33.0 pg [facility] Mean Corpuscular HGB Conc 30.1(L) 31.0 - 35.0 g/dl [facility] Red Cell Distribution Width 18.5(H) 11.0 - 16.0 % [facility] Platelet Count 289 160 - 400 X10*3/uL [facility] Mean Platelet Volume 10.1 9.4 - 12.3 fL [facility] Neutrophils Percent Auto 57.9 45 - 73 % [facility] Imm Gran Pct Auto 0.3 0.0 - 0.4 % [facility] Lymphocytes Percent Auto 30.1 20 - 40 % [facility] Monocytes Percent Auto 6.7 2 - 11 % [facility] Eosinophils Percent Auto 4.0 0 - 4 % [facility] Basophils Percent Auto 1.0 0 - 2 % [facility] NRBC Pct Auto 0.0 0.0 - 0.2 /100WBC [facility] Neutrophils Absolute Auto 4.5 2.0 - 8.3 x10*3/uL [facility] Imm Gran Abs Auto 0.02 0.00 - 0.03 X10*3/uL [facility] Lymphocytes Absolute Auto 2.4 1.2 - 4.9 X10*3/uL [facility] Monocytes Absolute Auto 0.5 0.1 - 1.2 X10*3/uL [facility] Eosinophils Absolute Auto 0.3 0.0 - 0.4 X10*3/uL [facility] Basophils Absolute Auto 0.1 0.0 - 0.2 X10*3/uL [facility] NRBC Abs Auto 0.000 0.0 - 0.012 X10*3/uL [facility] Blood Venous blood specimen / Unknown 08/28/2025 3:21 PM EST 08/28/2025 4:07 PM EST Kadi Tomlin MD LAB BLOOD ORDERABLES Final Res ult Performing Organization Address [facility] Co de Phone Number [facility] [address] [place] [phone] * (ABNORMAL) Ferritin (08/28/2025 3:21 PM EST) Only the most recent of2 resultswithin the time period is included. Ferritin 6(L) 10 - 250 ng/mL [facility] Blood Venous blood specimen / Unknown 08/28/2025 3:21 PM EST 08/28/2025 4:07 PM EST Vicky Can DO LAB BLOOD ORDERABLES Final R esult Performing Organization Address [facility] Co de Phone Number [facility] [address] [place] [address] [phone] * POCT Rapid Influenza B GILBERT ID NOW (08/28/2025 3:08 PM EST) Influenza B Negative Negative, Indeterminate [facility] QC Media Lot # [id number] [facility] Lot# Expiration Date [id number] [facility] Swab 08/28/2025 3:08 PM EST Kadi Tomlin MD POINT OF CARE TEST ENTER/EDIT ORDERABLES Final Result Performing Organization Address [facility] de Phone Number [facility] [address] [place] [address] [phone] * POCT Rapid Influenza A GILBERT ID NOW (08/28/2025 3:08 PM EST) Influenza A Negative Negative, Indeterminate [facility] QC Media Lot # [id number] [facility] Lot# Expiration Date 1082 [facility] Swab 08/28/2025 3:08 PM EST Kadi Tomlin MD POINT OF CARE TEST ENTER/EDIT ORDERABLES Final Result Performing Organization Address [facility] de Phone Number [facility] [address] [place] [address] [phone] * POCT Rapid Strep A GILBERT ID NOW (08/28/2025 3:08 PM EST) Rapid Strep A Screen Negative Negative, None Detected QC Media Lot # [id number] Lot# Expiration Date Swab 08/28/2025 3:08 PM EST Kadi Tomlin MD POINT OF CARE TEST ENTER/EDIT ORDERABLES Final Result * POCT Rapid Covid-19 BinaxNOW (08/28/2025 3:08 PM EST) Rapid COVID Ag Negative [facility] QC Media Lot # [id number] [facility] Lot# Expiration Date 82,426 [facility] Swab 08/28/2025 3:08 PM EST Kadi Tomlin MD POINT OF CARE TEST ENTER/EDIT ORDERABLES Final Result Performing Organization Address [facility] Co de Phone Number [facility] [address] [place] [phone] * XR CERVICAL SPINE 3V (08/01/2025 2:28 PM EST) Anatomical Region Laterality Modality Abdomen Radiographic Shyla ging 08/01/2025 2:28 PM EST Narrative 08/01/2025 2:38 PM EST [address] [address] XRay Report Signed Patient: Danika Morales MR#: [id number] 2 : 1965 Acct:[id number] Age/Sex: 59 / F ADM Date: 08/01/25 Loc: SEVERO Attending Dr: Vicky Can DO Ordering Physician: Vicky Can DO Date of Service: 08/01/25 Procedure(s): XR cervical spine 3V Accession Number(s): [id number] cc: Kadi Tomlin; Vicky Can DO Reason for Exam: PAIN EXAMINATION: XR CERVICAL SPINE CLINICAL INFORMATION: PAIN COMPARISON: January 03, 2025. Correlated to CT dated July 29, 2025. TECHNIQUE: AP lateral and atlantoodontoid views. FINDINGS: Craniocervical junction is intact. No acute cortical disruption or malalignment. Small marginal osteophyte formation at C5-6 and to a lesser extent C4-5. No lytic or blastic lesions. Upper airway is patent. XR/XR cervical spine 3V IMPRESSION: Mild cervical spondylosis C5-6. Electronically signed by: Jimmy Singh MD 08/01/2025 02:35 PM EST Dictated By: Jimmy Koroma MD Signed By: <Electronically signed by Jimmy Gooden MD in OV> 08/01/25 1435 DD/ 1428 TD/TT: 08/01/25 1432 Unloader Operator: Procedure Note Donotuseinterpreter, Image - 08/01/2025 [place] [address] XRay Report Signed Patient: Koby Morales#: [id number] 2 : 1965Acct:[id number] Age/Sex: 59 / FADM Date: 08/01/25 Loc: SEVERO Attending Dr: Vicky Can DO Ordering Physician: Vicky Can DO Date of Service: 08/01/25 Procedure(s): XR cervical spine 3V Accession Number(s): [id number] cc: Kadi Tomlin; Vicky Can DO Reason for Exam: PAIN EXAMINATION: XR CERVICAL SPINE CLINICAL INFORMATION: PAIN COMPARISON: January 03, 2025. Correlated to CT dated July 29, 2025. TECHNIQUE: AP lateral and atlantoodontoid views. FINDINGS: Craniocervical junction is intact. No acute cortical disruption or malalignment. Small marginal osteophyte formation at C5-6 and to a lesser extent C4-5. No lytic or blastic lesions. Upper airway is patent. XR/XR cervical spine 3V IMPRESSION: Mild cervical spondylosis C5-6. Electronically signed by: Jimmy Singh MD 08/01/2025 02:35 PM EST RP Dictated By: Jimmy Koroma MD Signed By: <Electronically signed by Jimmy Gooden MDin OV> 08/01/25 1435 DD/ TD/TT: 08/01/25 1432 Unloader Operator: Vicky Can DO IMG XR PROCEDURES Edited Res ult - Final * (ABNORMAL) Hemoglobin Electrophoresis (08/01/2025 12:18 PM EST) RBC 3.72(A) 3.80 - 5.10 Million/u L [facility] Hemoglobin 8.5(A) 11.7 - 15.5 g/dL [facility] Hematocrit 28.3(A) 35.0 - 45.0 % [facility] MCV 76.1(A) 80.0 - 100.0 fL [facility] MCH 22.8(A) 27.0 - 33.0 pg [facility] RDW 18.3(A) 11.0 - 15.0 % [facility] Hemoglobin A 98.2 >96.0 % [facility] Hemoglobin A2 1.8(A) 2.0 - 3.2 % [facility] Hemoglobin F <1.0 <2.0 % [facility] Hemoglobin S TNP [facility] Hemoglobin C TNP [facility] Hemoglobin E TNP [facility] Other Hemoglobin TNP [facility] Other Hemoglobin 2 TNP H [facility] Hgb Interpretation SEE NOTE H [facility] Comment:Decreased hemoglobin A2 noted. Reduced hemoglobin A2 is a relativelycommon acquired disorder. It is commonly decreased in iron deficiencyanemia and lead poisoning. It may also be decreased in alphathalassemia. If iron deficiency anemia and lead poisoning have beenruled out, testing for alpha thalassemia common mutation is available([facility] Test Code 64965).THIS TEST WAS PERFORMED AT:[facility] [address] [id number] HERNANDEZ MD 08/01/2025 12:1 8 PM EST 08/01/2025 1:34 PM EST us Generic External Data Provider LAB BLOOD ORDERAB LES Final Result Performing Organization Address [facility]/ZIP Co de Phone Number [facility] [address] [place] [phone] * (ABNORMAL) Iron And Total Iron Binding Capacity (08/01/2025 12:18 PM EST) Iron 18(L) 30 - 160 mcg/dL [facility] Total Iron Binding Capacity 338 228 - 428 mcg/dL [facility] Percent Iron Saturation 5(L) 15 - 50 % [facility] Unsaturated Iron Binding 320 ug/dL [facility] Blood Venous blood specimen / Unknown 08/01/2025 12:18 PM EST 08/01/2025 1:34 PM EST us Vicky Can DO LAB BLOOD ORDERABLES Final R esult Performing Organization Address [facility]/ZIP Co de Phone Number [facility] [address] [place] [phone] * Basic Metabolic Panel (08/01/2025 12:18 PM EST) Sodium 141 135 - 145 mmol/L [facility] Potassium 3.7 3.3 - 5.1 mmol/L [facility] Chloride 104 96 - 108 mmol/L [facility] Carbon Dioxide 29 22 - 29 mmol/L [facility] Anion Gap 12 12 - 20 [facility] Urea Nitrogen (BUN) 14 9 - 16 mg/dL [facility] Creatinine, Serum 0.85 0.5 - 1.4 mg/dL [facility] Estimated Glomerular Filt Rate >60 [facility] Comment:Chronic Kidney Disea se: Estimated GFR < 60 mL/min/1.92h6Cmakrg Kidney Disease: Estimated GFR < 15 mL/min/1.73m2 Glucose 82 60 - 115 mg/dL [facility] Calcium 9.8 8.4 - 10.2 mg/dL [facility] Blood Venous blood specimen / Unknown 08/01/2025 12:18 PM EST 08/01/2025 1:34 PM EST us Vicky Can DO LAB BLOOD ORDERABLES Final R esult [facility] [address] [place] [phone] * CT Head w/o Contrast (07/29/2025 1:01 PM EST) Only the most recent of2 resultswithin the time period is included. Anatomical Region Laterality Modality Head, Neck Computed Tomogra phy 07/29/2025 1:01 PM EST Narrative 08/04/2025 9:58 AM EST
--- OUTSIDE RECORDS SUMMARY | 2025-08-29 00:36 | XMS_ITS | Encounter Summary ---
Author Organization [employer] Address [address] [facility] 7t [place] [address] Care Team Providers Care Transfer Table Operator Name Role Phone Kadi Tomlin MD Primary Care Provider [phone] Encounter Details Date Type Department Care Team (Late st Contact Info) Description 11/28/2022 Orders Only [facility] [address] [place], [place] [phone] Kadi Tomlin MD [address] [place], [place] [phone] Other hyperlipidemia (Primary Dx); Pain of lower [...] AM EDT Narrative 12/17/2022 8:44 AM EDT [place] [address] XRay Report Signed Patient: Danika Morales MR#: [id number] 2 : 1965 Acct:[id number] Age/Sex: 57 / F ADM Date: 12/10/22 Loc: RAYO Attending Dr: Kadi Tomlin MD Ordering Physician: Kadi Tomlin Date of Service: 12/10/22 Procedure(s): XR wrist LT min 3V Accession Number(s): [id number] cc: Kadi Tomlin EXAMINATION: XR ELBOW, LEFT [...] in OV> 12/17/22 08 DD/ 1048 TD/TT: Rib Bender: BLANCA Procedure Note Donotuseinterpreter, Image - 01/05/[address] [address] XRay Report Signed Patient: Koby Morales#: [id number] 2 : 1965Acct:[id number] Age/Sex: 57 / FADM Date: 12/10/22 Loc: HO.XRAY Attending Dr: Kadi Tomlin MD Ordering Physician: Kadi Tomlin Date of Service: 12/10/22 Procedure(s): XR wrist LT min 3V Accession Number(s): [id number] cc: Kadi Tomlin EXAMINATION: XR ELBOW, LEFT [...] signed by Nick Chino MD in OV> 12/17/[address] DD/ 1048 TD/TT: Rib Bender: [facility] External Provider IMG XR PROCEDURES Final Result * XR Elbow 1-2 Views Left (12/10/2022 10:48 AM EDT) Anatomical Region Laterality Modality Upper Extremities, Elbow Left Radiogr aphic Imaging 12/10/2022 10:4 8 AM EDT Narrative 12/17/2022 8:44 AM EDT [address] [address] XRay Report Signed Patient: Danika Morales MR#: [id number] 2 : 1965 Acct:[id number] Age/Sex: 57 / F ADM Date: 12/10/22 Loc: HO.XRAY Attending Dr: Kadi Tomlin MD Ordering Physician: Kadi Tomlin Date of Service: 12/10/22 Procedure(s): XR elbow LT 2V Accession Number(s): [id number] cc: Kadi Tomlin EXAMINATION: XR ELBOW, LEFT [...] in OV> 12/17/22 0841 DD/ 1048 TD/TT: Rib Bender: BLANCA Procedure Note Donotuseinterpreter, Image - 12/17/[address] [address] XRay Report Signed Patient: Jess MoralesR#: [id number] 2 : 1965Acct:[id number] Age/Sex: 57 / FADM Date: 12/10/22 Loc: RAYO Attending Dr: Kadi Tomlin MD Ordering Physician: Kadi Tomlin Date of Service: 12/10/22 Procedure(s): XR elbow LT 2V Accession Number(s): [id number] cc: Kadi Tomlin EXAMINATION: XR ELBOW, LEFT [...] in OV> 12/17/22 0841 DD/ 1048 TD/TT: Rib Bender: BLANCA [facility] External Provider IMG XR PROCEDURES Final Result * XR Shoulder 2+ Views Left (12/10/2022 10:48 AM EDT) Anatomical Region Laterality Modality Upper Extremities, Shoulder Left Radi ographic Imaging 12/10/2022 10:4 8 AM EDT Narrative 12/17/2022 8:44 AM EDT [address] [address] XRay Report Signed Patient: Danika Morales MR#: [id number] 2 : 1965 Acct:[id number] Age/Sex: 57 / F ADM Date: 12/10/22 Loc: RAYO Attending Dr: Kadi Tomlin MD Ordering Physician: Kadi Tomlin Date of Service: 12/10/22 Procedure(s): XR shoulder LT min 2V Accession Number(s): [id number] cc: Kadi Tomlin EXAMINATION: XR ELBOW, LEFT [...] in OV> 12/17/22 0841 DD/ 1048 TD/TT: Rib Bender: [facility] Procedure Note Donotuseinterpreter, Image - 12/17/[address] [address] XRay Report Signed Patient: Koby Morales#: [id number] 2 : 1965Acct:[id number] Age/Sex: 57 / FADM Date: 12/10/22 Loc: HOKO Attending Dr: Kadi Tomlin MD Ordering Physician: Kadi Tomlin Date of Service: 12/10/22 Procedure(s): XR shoulder LT min 2V Accession Number(s): [id number] cc: Kadi Tomlin EXAMINATION: XR ELBOW, LEFT [...] in OV> 12/17/22 0841 DD/ 1048 TD/TT: Rib Bender: BLANCA [facility] External Provider IMG XR PROCEDURES Final Result documented in this encounter Visit Diagnoses Diagnosis Other hyperlipidemia- Primary Pain of lower extremity, unspecified laterality documented in this encounter Additional Health Concerns Assessment Noted Time PHQ-9 Depression Total Score: 7 11/11/19 23 8:54 AM EST documented as of this encounter Care Teams Transfer Table Operator Relationship Specialty Start Date End Date Kadi Tomlin MD [address] [place] [address] PCP - General Family Medicine 05/21/21 documented as of this encounter
--- OUTSIDE RECORDS SUMMARY | 2025-08-29 00:36 | XMS_ITS | Encounter Summary ---
Author Organization [employer] Address [address] [facility] 7t [place] [address] Care Team Providers Care Mangle Roller Name Role Phone Kadi Tomlin MD Primary Care Provider [phone] Encounter Details Date Type Department Care Team (Late st Contact Info) Description 11/03/2024 Orders Only [facility] [address] [place], [place] [phone] ProviderTracey MD Social History Tobacco Use Types [...] documented as of this encounter Care Teams Mangle Roller Relationship Specialty Start Date End Date Kadi Tomlin MD [address] [place] [address] PCP - General Family Medicine 05/21/21 documented as of this encounter
--- OUTSIDE RECORDS SUMMARY | 2025-08-29 00:36 | XMS_ITS | Encounter Summary ---
Author Organization [email or web address] Address [address] [place] [address] 7t [place] [address] Care Team Providers Care Commodity Manager Name Role Phone Kadi Tomlin MD Primary Care Provider [phone] Reason for Visit * Reason Onset Date Comments Appointment Request 12/25/2022 Encounter Details Date Type Department Care Team (Late st Contact Info) Description 12/25/2022 Telephone [facility] [address] [place], [place] [phone] Kadi Tomlin MD [address] [place], [place] [phone] Appointment Request Social History Tobacco Use Types [...] schedule an appt Please contact pt at [phone] documented in this encounter Plan of Treatment Not on file documented as of this encounter Visit Diagnoses Not on filedocumented in this encounter Additional Health Concerns Assessment Noted Time PHQ-9 Depression Total Score: 7 11/11/19 23 8:54 AM EST documented as of this encounter Care Teams Commodity Manager Relationship Specialty Start Date End Date Kadi Tomlin MD [address] [place] [address] PCP - General Family Medicine 05/21/21 documented as of this encounter
--- OUTSIDE RECORDS SUMMARY | 2025-08-29 00:36 | XMS_ITS | Encounter Summary ---
Author Organization [employer] Address [address] [facility] 7t [place] [address] Care Team Providers Care Film Vault Supervisor Name Role Phone Kadi Tomlin MD Primary Care Provider [phone] Reason for Visit * Reason Onset Date Comments Nurse Triage 04/05/2024 Encounter Details Date Type Department Care Team (Late st Contact Info) Description 04/05/2024 Telephone [facility] [address] [place], [place] [phone] Kadi Tomlin MD [address] [place], [place] [phone] Nurse Triage Social History Tobacco Use Types [...] 04/05/2024 12:14 PM EDT Triage call with hoohbe Polisher Dial ID [id number] Pt reports low blood pressure of 106/80 [...] fordays. Pt is advised to come to [facility] today to be seen by provider [...] accepted this outcome Please contact pt @ Malagasy Speaker documented in this encounter Plan of Treatment Not on file documented as of this encounter Visit Diagnoses Not on filedocumented in this encounter Additional Health Concerns Assessment Noted Time PHQ-9 Depression Total Score: 15 024 9:17 AM EDT documented as of this encounter Care Teams Film Vault Supervisor Relationship Specialty Start Date End Date Kadi Tomlin MD [address] [place] [address] PCP - General Family Medicine 05/21/21 documented as of this encounter
--- OUTSIDE RECORDS SUMMARY | 2025-08-29 00:36 | XMS_ITS | Encounter Summary ---
Author Organization [employer] Address [address] [place] [address] 7t [place] [address] Care Team Providers Care Satellite Dish Installer Name Role Phone Kadi Tomlin MD Primary Care Provider [phone] Encounter Details Date Type Department Care Team (Late st Contact Info) Description 05/28/2023 Orders Only [facility] MEDICINE [address] [place], [place] [phone] Provider, MD Tracey Social History Tobacco Use [...] documented as of this encounter Care Teams Satellite Dish Installer Relationship Specialty Start Date End Date Kadi Tomlin MD [address] [place] [address] PCP - General Family Medicine 05/21/21 documented as of this encounter
--- OUTSIDE RECORDS SUMMARY | 2025-08-29 00:36 | XMS_ITS | Encounter Summary ---
Author Organization [employer] Address [address] [facility] 7t [place] [address] Care Team Providers Care Apigee Developer Name Role Phone Kadi Tomlin MD Primary Care Provider [phone] Reason for Visit * Reason Comments Med Change Request Encounter Details Date Type Department Care Team ([facility] Contact Info) Description 08/28/2025 Refill [facility] MED[facility]INE 230 [place], [place] [phone] Kadi Tomlin MD 230 [place], [place] [phone] Social History Tobacco Use Types Packs/Day Years [...] AM EDT documented as of this encounter Functional Status * Over the past 2 weeks, how often have you been bothered by any of the following problems? Question Answer Date of Assessment Author Patient Health Questionnaire -2 Score 4 08/28/2025 3:12 PM Demetri Colon [place] * Little interest or pleasure in doing things Answer Date of Assessment Author Nearly every day 08/28/2025 3:12 PM Demetri Colon MA * Feeling down, depressed, or hopeless Answer Date of Assessment Author Several days 08/28/2025 3:12 PM Demetri Colon [place] * Trouble falling or staying asleep, [...] Assessment Noted Time PHQ-9 Depression Total Score: 025 3:12 PM EST documented as of this encounter Care Teams Apigee Developer Relationship Specialty Start Date End Date Kadi Tomlin MD [address] [place] [address] PCP - General Family Medicine 05/21/21 documented as of this encounter
--- OUTSIDE RECORDS SUMMARY | 2025-08-29 00:36 | XMS_ITS | Encounter Summary ---
Author Organization [employer] Address [address] [facility] 7t [place] [address] Care Team Providers Care Conditioner Tumbler Operator Name Role Phone Kadi Tomlin MD Primary Care Provider Encounter Details Date Type Department Care Team (Latest Contact Info) Description 08/28/2025 Travel Social History Tobacco Use Types Packs/Day [...] documented as of this encounter Care Teams Conditioner Tumbler Operator Relationship Specialty Start Date End Date Kadi Tomlin MD 230 [place] [address] PCP - General Family Medicine 05/21/21 documented as of this encounter
--- OUTSIDE RECORDS SUMMARY | 2025-08-29 00:36 | XMS_ITS | Encounter Summary ---
Author Organization [employer] Address [address] [place] [address] [address]t [place] [address] Care Team Providers Care Turpentine Distiller Name Role Phone Kadi Tomlin MD Primary Care Provider [phone] Reason for Visit * Reason Onset Date Comments Appointment Request 03/27/2023 Encounter Details Date Type Department Care Team (Late st Contact Info) Description 03/27/[address] [facility] MEDICINE 230 [place], [place] [phone] Kadi Tomlin MD 230 [place], [place] [phone] Appointment Request Social History Tobacco Use Types [...] with Enoc Boles. Please contact pt at [phone] documented in this encounter Plan of Treatment Not on file documented as of this encounter Visit Diagnoses Not on filedocumented in this encounter Additional Health Concerns Assessment Noted Time PHQ-9 Depression Total Score: 9 01/09/20 23 9:12 AM EDT documented as of this encounter Care Teams Turpentine Distiller Relationship Specialty Start Date End Date Kadi Tomlin MD 230 [place] [address] PCP - General Family Medicine 05/21/21 documented as of this encounter
--- OUTSIDE RECORDS SUMMARY | 2025-08-29 00:36 | XMS_ITS | Encounter Summary ---
Author Organization [employer] Address [address] [facility] 7t [place] [address] Care Team Providers Care Laborer Wood Preserving Plant Name Role Phone Kadi Tomlin MD Primary Care Provider [phone] Encounter Details Date Type Department Care Team (Late st Contact Info) Description 08/17/2023 Abstract [facility] MEDICINE [address] [place] [phone] Denisse Castillo Social History Tobacco Use Types [...] documented as of this encounter Care Teams Laborer Wood Preserving Plant Relationship Specialty Start Date End Date Kadi Tomlin MD 230 [place] [address] PCP - General Family Medicine 05/21/21 documented as of this encounter
--- OUTSIDE RECORDS SUMMARY | 2025-08-29 00:36 | XMS_ITS | Encounter Summary ---
Author Organization [employer] Address [address] [place] [address] 7t [place] [address] Care Team Providers Care Custom Clothier Name Role Phone Kadi Tomlin MD Primary Care Provider [phone] Reason for Visit * Reason Comments Med Refill Encounter Details Date Type Department Care Team (Late st Contact Info) Description 03/25/2023 Refill [facility] [address] [place], [place] [phone] Enoc Boles FNP Depressive disorder Social History [...] documented as of this encounter Care Teams Custom Clothier Relationship Specialty Start Date End Date Kadi Tomlin MD [address] [place] [address] PCP - General Family Medicine 05/21/21 documented as of this encounter
--- OUTSIDE RECORDS SUMMARY | 2025-08-29 00:36 | XMS_ITS | Encounter Summary ---
Author Organization [employer] Address [address] [facility] 7t [place] [address] Care Team Providers Care Child Daycare Worker Name Role Phone Kadi Tomlin MD Primary Care Provider [phone] Encounter Details Date Type Department Care Team (Late st Contact Info) Description 06/19/2023 Orders Only [facility] MEDICINE 230 [place], [place] [phone] Kadi Tomlin MD 230 [place], [place] [phone] Social History Tobacco Use Types Packs/Day Years [...] documented as of this encounter Care Teams Child Daycare Worker Relationship Specialty Start Date End Date Kadi Tomlin MD [address] [place], [place] [phone] PCP - General Family Medicine 05/21/21 documented as of this encounter
== END 2025-08-28 15:05 | disposition home or self-care (01) ==
LOC: HO.HHCL 15:04
PROVIDERS: Family Medicine; PCP General Practice; Visit Provider General Practice
DX: I10 Essential (primary) hypertension (principal); D64.9 Anemia, unspecified
CPT/HCPCS: 36415; 82607; 82728; 82746; 84443; 85025

== ENCOUNTER 2025-09-07 14:58 | Outpatient (REF) | payer MEDICAID, SELFPAY ==
--- NOTE | ~2025-09-07 | XR_ITS ---
EXAMINATION: XR LUMBOSACRAL SPINE CLINICAL INFORMATION: 1 month of ongoing lower back pain COMPARISON: 08/22/2021 CT TECHNIQUE: Three views of the lumbosacral spine. FINDINGS: There are 5 nonrib-bearing lumbar segments. There is rudimentary disc formation at S1-S2. T12-L1 shows mild disc space narrowing. Disc spaces are preserved otherwise. There are small anterior osteophytes at L3-4 through L5-S1. There is facet sclerosis at L5-S1 XR/XR lumbar spine 2-3V IMPRESSION: No acute abnormality. Minimal degenerative change. Electronically signed by: Og Gaffney MD 09/07/2025 03:16 PM [facility]
--- OUTSIDE RECORDS SUMMARY | 2025-09-07 14:00 | XMS_ITS | Encounter Summary ---
Author Organization [employer] Address [address] [place] [address] 7t [place] [address] Care Team Providers Care Hospital Medical Assistant Name Role Phone Kadi Tomlin MD Primary Care Provider [phone] Reason for Referral * Consultation (Routine) - Pending Review Specialty Diagnoses / Procedures Referred By Marcela mckeon Referred To Contact Physical Therapy Diagnoses Lumbar back pain Jennifer Narayan MD 230 [place] [address] Phone: tel: fax: Referral ID Status Reason Start Date Expiration Date Visits Requested Visits Authorized [id number] Pending Review Specialty Services Required 09/07/2026 1 1 Reason for Visit * Reason Comments Back Pain Encounter Details Date Type Department Care Team ([facility] st Contact Info) Description 09/07/2025 2:00 PM EST Office Visit [facility] 230 [place], [place] [phone] Lumbar back pain (Primary Dx) Social History Tobacco Use Types [...] Sign Reading Time Taken Comments Blood Pressure 139/87 09/07/2025 2:20 PM EST Pulse 77 09/07/2025 2:20 PM EST Temperature 36.8 C (98.2 F) 09/07/2025 2:20 PM EST Respiratory Rate 18 09/07/2025 2:20 PM EST Oxygen Saturation 97% 09/07/2025 2:20 PM EST Inhaled Oxygen Concentration - - Weight 78.5 kg (173 lb) 09/07/2025 2:20 PM EST Height - - Body Mass Index 29.7 08/28/2025 3:03 PM EST documented in this encounter Plan of Treatment Scheduled Referrals Name Type Priority Associated Diagnoses Orde r Schedule Referral to Physical Therapy Outpatient Referral Routine Lumbar back pain Expected: 09/07/2025 (Approximate), Expires: 09/07/2026 documented as of this encounter Procedures Procedure Name Priority Date/Time Associated Diagnosis Comments XR LUMBAR SPINE 2-3 VIEWS Routine 09/07/2025 3:10 PM EST Lumbar back pain documented in this encounter Results * XR Lumbar Spine 2-3 Views (09/07/2025 3:10 PM EST) Anatomical Region Laterality Modality Spine, L-spine Radiographic Shyla ging 09/07/2025 3:10 PM EST Narrative 09/07/2025 3:19 PM EST [facility] [address] [place] [address] XRay Report Signed Patient: Danika Morales MR#: [id number] 2 : 1965 Acct:[id number] Age/Sex: 60 / F ADM Date: 09/07/25 Loc: HO.HHCX Attending Dr: Jennifer Hernandez MD Ordering Physician: Jennifer Narayan MD Date of Service: 09/07/25 Procedure(s): XR lumbar spine 2-3V Accession Number(s): [id number] cc: Kadi Tomlin; Jennifer Narayan MD Reason for Exam: 1 month of ongoing lower back pain EXAMINATION: XR LUMBOSACRAL SPINE CLINICAL INFORMATION: 1 month of ongoing lower back pain COMPARISON: 08/22/2021 CT TECHNIQUE: Three views of the lumbosacral spine. FINDINGS: There are 5 nonrib-bearing lumbar segments. There is rudimentary disc formation at S1-S2. T12-L1 shows mild disc space narrowing. Disc spaces are preserved otherwise. There are small anterior osteophytes at L3-4 through L5-S1. There is facet sclerosis at L5-S1 XR/XR lumbar spine 2-3V IMPRESSION: No acute abnormality. Minimal degenerative change. Electronically signed by: Og Gaffney MD 09/07/2025 03:16 PM EST Dictated By: Og Gaffney MD Signed By: <Electronically signed by Og Gaffney MD in OV> 09/07/25 1516 DD/ 1510 TD/TT: 09/07/25 1512 Furniture Technician: Procedure Note Donotuseinterpreter, Image - 09/07/2025 [facility] [address] [place] [address] XRay Report Signed Patient: Koby Morales#: [id number] 2 : 1965Acct:[id number] Age/Sex: 60 / FADM Date: 09/07/25 Loc: HO.HHX Attending Dr: Jennifer Hernandez MD Ordering Physician: Jennifer Narayan MD Date of Service: 09/07/25 Procedure(s): XR lumbar spine 2-3V Accession Number(s): [id number] cc: Kadi Tomlin; Jennifer Narayan MD Reason for Exam: 1 month of ongoing lower back pain EXAMINATION: XR LUMBOSACRAL SPINE CLINICAL INFORMATION: 1 month of ongoing lower back pain COMPARISON: 08/22/2021 CT TECHNIQUE: Three views of the lumbosacral spine. FINDINGS: There are 5 nonrib-bearing lumbar segments. There is rudimentary disc formation at S1-S2. T12-L1 shows mild disc space narrowing. Disc spaces are preserved otherwise. There are small anterior osteophytes at L3-4 through L5-S1. There is facet sclerosis at L5-S1 XR/XR lumbar spine 2-3V IMPRESSION: No acute abnormality. Minimal degenerative change. Electronically signed by: Og Gaffney MD 09/07/2025 03:16 PM EST Dictated By: Og Gaffney MD Signed By: <Electronically signed by Og Gaffney MD in OV> 09/07/25 1516 DD/ 1510 TD/TT: 09/07/25 1512 Furniture Technician: Jennifer Hernandez MD IMG XR PROCEDURES Final Result documented in this encounter Visit Diagnoses Diagnosis Lumbar back pain- Primary Lumbago documented in this encounter Additional Health Concerns Assessment Noted Time PHQ-9 Depression Total Score: 22 025 3:12 PM EST documented as of this encounter Care Teams Hospital Medical Assistant Relationship Specialty Start Date End Date Kadi Tomlin MD [address] [place] [address] PCP - General Family Medicine 05/21/21 documented as of this encounter
--- OUTSIDE RECORDS SUMMARY | 2025-09-07 19:03 | XMS_ITS | Encounter Summary ---
Author Organization [employer] Address [address] [facility] 7t [place] [address] Care Team Providers Care Roller Picker Name Role Phone Kadi Tomlin MD Primary Care Provider [phone] Encounter Details Date Type Department Care Team (Late st Contact Info) Description 11/28/2022 Orders Only [facility] MEDICINE 230 [place], [place] [phone] Kadi Tomlin MD 230 [place] [address] Other hyperlipidemia (Primary Dx); Pain of lower [...] AM EDT Narrative 12/17/2022 8:44 AM EDT [place] [address] XRay Report Signed Patient: Danika Morales MR#: [id number] 2 : 1965 Acct:[id number] Age/Sex: 57 / F ADM Date: 12/10/22 Loc: HO.XRAY Attending Dr: Kadi Tomlin MD Ordering Physician: Kadi Tomlin Date of Service: 12/10/22 Procedure(s): XR wrist LT min 3V Accession Number(s): [id number] cc: Kadi Tomlin EXAMINATION: XR ELBOW, LEFT [...] in OV> 12/17/22 0841 DD/ 1048 TD/TT: Brush Finisher: BLANCA Procedure Note Donotuseinterpreter, Image - 01/05/[address] [address] XRay Report Signed Patient: Koby Morales#: [id number] 2 : 1965Acct:[id number] Age/Sex: 57 / FADM Date: 12/10/22 Loc: HOKGAY Attending Dr: Kadi Tomlin MD Ordering Physician: Kadi Tomlin Date of Service: 12/10/22 Procedure(s): XR wrist LT min 3V Accession Number(s): [id number] cc: Kadi Tomlin EXAMINATION: XR ELBOW, LEFT [...] in OV> 12/17/22 0841 DD/ 1048 TD/TT: Brush Finisher: [facility] us [facility] External Provider IMG XR PROCEDURES Final Result * XR Elbow 1-2 Views Left (12/10/2022 10:48 AM EDT) Anatomical Region Laterality Modality Upper Extremities, Elbow Left Radiogr aphic Imaging 12/10/2022 10:4 8 AM EDT Narrative 12/17/2022 8:44 AM EDT [address] [address] XRay Report Signed Patient: Danika Morales MR#: [id number] 2 : 1965 Acct:[id number] Age/Sex: 57 / F ADM Date: 12/10/22 Loc: HO.GLADIS Attending Dr: Kadi Tomlin MD Ordering Physician: Kadi Tomlin Date of Service: 12/10/22 Procedure(s): XR elbow LT 2V Accession Number(s): [id number] cc: Kadi Tomlin EXAMINATION: XR ELBOW, LEFT [...] in OV> 12/17/22 0841 DD/ 1048 TD/TT: Brush Finisher: [facility] Procedure Note Donotuseinterpreter, Image - 12/17/[address] [address] XRay Report Signed Patient: Jess MoralesR#: [id number] 2 : 1965Acct:[id number] Age/Sex: 57 / FADM Date: 12/10/22 Loc: RAYO Attending Dr: Kadi Tomlin MD Ordering Physician: Kadi Tomlin Date of Service: 12/10/22 Procedure(s): XR elbow LT 2V Accession Number(s): [id number] cc: Kadi Tomlin EXAMINATION: XR ELBOW, LEFT [...] in OV> 12/17/22 0841 DD/ 1048 TD/TT: Brush Finisher: BLANCA [facility] External Provider IMG XR PROCEDURES Final Result * XR Shoulder 2+ Views Left (12/10/2022 10:48 AM EDT) Anatomical Region Laterality Modality Upper Extremities, Shoulder Left Radi ographic Imaging 12/10/2022 10:4 8 AM EDT Narrative 12/17/2022 8:44 AM EDT [address] [address] XRay Report Signed Patient: Danika Morales MR#: [id number] 2 : 1965 Acct:[id number] Age/Sex: 57 / F ADM Date: 12/10/22 Loc: RAYO Attending Dr: Kadi Tomlin MD Ordering Physician: Kadi Tomlin Date of Service: 12/10/22 Procedure(s): XR shoulder LT min 2V Accession Number(s): [id number] cc: Kadi Tomlin EXAMINATION: XR ELBOW, LEFT [...] in OV> 12/17/22 0841 DD/ 1048 TD/TT: Brush Finisher: [facility] Procedure Note Donotuseinterpreter, Image - 12/17/[address] [address] XRay Report Signed Patient: Koby Morales#: [id number] 2 : 1965Acct:[id number] Age/Sex: 57 / FADM Date: 12/10/22 Loc: RAYO Attending Dr: Kadi Tomlin MD Ordering Physician: Kadi Tomlin Date of Service: 12/10/22 Procedure(s): XR shoulder LT min 2V Accession Number(s): [id number] cc: Kadi Tomlin EXAMINATION: XR ELBOW, LEFT [...] in OV> 12/17/22 0841 DD/ 1048 TD/TT: Brush Finisher: BLANCA [facility] External Provider IMG XR PROCEDURES Final Result documented in this encounter Visit Diagnoses Diagnosis Other hyperlipidemia- Primary Pain of lower extremity, unspecified laterality documented in this encounter Additional Health Concerns Assessment Noted Time PHQ-9 Depression Total Score: 7 11/11/19 23 8:54 AM EST documented as of this encounter Care Teams Roller Picker Relationship Specialty Start Date End Date Kadi Tomlin MD [address] [place] [address] PCP - General Family Medicine 05/21/21 documented as of this encounter
--- OUTSIDE RECORDS SUMMARY | 2025-09-07 19:03 | XMS_ITS | Encounter Summary ---
Author Organization [employer] Address [address] [facility] 7t [place] [address] Care Team Providers Care Humid System Operator Name Role Phone Kadi Tomlin MD Primary Care Provider [phone] Encounter Details Date Type Department Care Team (Late st Contact Info) Description 11/03/2024 Orders Only [facility] MEDICINE [address] [place], [place] [phone] ProviderTracey MD Social History Tobacco Use Types [...] documented as of this encounter Care Teams Humid System Operator Relationship Specialty Start Date End Date Kadi Tomlin MD [address] [place] [address] PCP - General Family Medicine 05/21/21 documented as of this encounter
--- OUTSIDE RECORDS SUMMARY | 2025-09-07 19:03 | XMS_ITS | Clinical Summary ---
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 patient'sheight/weight. Estimated Glomerular Filt Rate 55 [facility] Comment:Chronic Kidney Disea se: Estimated GFR < 60 mL/min/1.55f6Ozxwar Kidney Disease: Estimated GFR < 15 mL/min/1.73m2 Glucose 88 60 - 115 mg/dL [facility] Calcium 9.8 8.4 - 10.2 mg/dL [facility] Bilirubin, Total 0.3 0.0 - 1.0 mg/dL [facility] Aspartate Amino Transferase 33(H) 5 - 31 U/L [facility] Alanine Aminotransferase 26 0 - 31 U/L [facility] Total Protein 7.4 6.5 - 8.0 g/dL [facility] Albumin Level 4.2 3.5 - 5.0 g/dL [facility] Alkaline Phosphatase 134(H) 39 - 117 U/L [facility] 07/29/2025 12:0 3 PM EST 07/29/2025 12:07 PM EST us Generic External Data Provider LAB BLOOD ORDERAB LES Final Result Performing Organization Address [facility] Co de Phone Number [facility] [address] [place] [phone] * (ABNORMAL) HPV DNA, Low/High Risk (11/04/2024 12:00 AM EST) HPV High Risk Positive(A) Negative [facility] HPV Genotype 16 Negative Negative [facility] HPV Genotype 18 Negative Negative [facility] Comment:HPV testing performe d at [facility] (CLIA#[id number]), [address] [place] [address].Testing for HPV was performed using the Rivera [...] ORDERABLES Final Res ult Performing Organization Address [facility] Co de Phone Number [facility] [address] [place] [address] [phone] * Pap Smear (11/04/2024 12:00 AM EST) 11/04/2024 11/08/2024 8:4 5 AM EST Narrative [facility] - 11/11/2024 4:30 PM EST ----- ------- Name: Danika Morales Age/Sex: 59/F : 1965 Unit#: [id number] Attend Dr: Kadi Tomlin Re11/04/24 Status: [facility] ----- ------- SPEC : [id number] RECD: 11/08/24 STATUS: WESLY THAYER NUM: [id number] MARY: 11/04/24-0000 [facility] DR: Kadi Tomlin ENTERED: 11/08/24 SP TYPE: Pap Smr OT DR: ORDERED: Pap Smear Interpretation Satisfactory for evaluation. Negative for intraepithelial lesion or malignancy. No endocervical cells seen. HPV High Risk: Positive HPV Genotyping 16: Negative HPV Genotyping 18: Negative Clinical Information LMP:Post-menopausal Previous PAP test: NILM Other surgery: Other history: Material Received ThinPrep-Cervical ----- ------- Signed (signature on file) HUMBERTO Moreno ([facility]) 11/11/24 1630 ----- ------- END OF REPORT Kadi Tomlin MD LAB CYTOLOGY ORDERABLES Final Result [facility] [address] [place] [phone] * Hm Colonoscopy (06/09/2024 11:24 AM EDT) [facility] Provider HEALTH MAINTENANCE Final Result * BI Mammogram Screening Tomosynthesis Bilateral (07/14/2023 3:15 PM EDT) Anatomical Region Laterality Modality Breast Bilateral Mammography 07/14/2023 3:15 PM EDT Narrative 08/01/2023 1:28 PM [facility] [address] [place] [address] Mammography Report Signed Patient: Danika Morales MR#: [id number] 2 : 1965 Acct:[id number] Age/Sex: 57 / F ADM Date: 07/14/23 Loc: PARISA Attending Dr: Kadi Tomlin MD Ordering Physician: Kadi Tomlin Results: 1Negative Date of Service: 07/14/23 Follow Up: 1 Year From Orig inal Mammogram Procedure(s): MM tomosynthesis screening BI Accession Number(s): [id number] cc: Kadi Tomlin EXAMINATION: MM SCREENING DIGITAL [...] in OV> 08/01/23 1324 DD/ 1515 TD/TT: Medicinal Chemist: Procedure Note Donotuseinterpreter, Image - 08/01/[facility]23 [facility] [address] [place], [place] [address] Mammography Report Signed Patient: Koby Morales#: [id number] 2 : 1965Acct:[id number] Age/Sex: 57 / FADM Date: 07/14/23 Loc: PARISA Attending Dr: Kadi Tomlin MD Ordering Physician: Khadar Tomlinults: 1Negative Date of Service: 07/14/23Follow Up: 1 Year From Orig inal Mammogram Procedure(s): MM tomosynthesis screening BI Accession Number(s): [id number] cc: Kadi Tomlin EXAMINATION: MM SCREENING DIGITAL [...] in OV> 08/01/23 1324 DD/ 1515 TD/TT: Medicinal Chemist: Kadi Tomlin MD IMG BI PROCEDURES Edited Resul t - Final * HIV 1/2 ANTIGEN/ANTIBODY,FOURTH GENERATION W/RFL (08/21/2020 11:31 AM EST) HIV-1/2 ANTIGEN AND ANTIBODIES, 4TH GENERATION W/ REFLEX NON-REACT DINORA NON-REACT DINORA [facility] Comment: HIV-1 antigen and HIV-1/HIV-2 [...] purpose. For additional information please refer to http://education.CL3VER.Govtoday/faq/DBA396 (This link is being provided for informational/ educational purposes only.) The performance of this assay has not been clinically validated in patients less than 2 years old. HIV-1/2 ANTIGEN AND ANTIBODIES, 4TH GENERATION W/ REFLEX NON-REACT DINORA NON-REACT DINORA [facility] Comment: HIV-1 antigen and HIV-1/HIV-2 [...] purpose. For additional information please refer to http://education.[facility] [facility]/faq/FVP339 (This link is being provided for informational/ educational purposes only.) The performance of this assay has not been clinically validated in patients less than 2 years old. 08/21/2020 11:3 1 AM EST us Shantelle Adame MD LAB BLOOD ORDERABLES Final Re sult [facility] [address] * (ABNORMAL) LIPID PANEL, STANDARD (08/21/2020 [...] LDL-C. Alistair DELAROSA et al. CANDI. 2013;310(19): 8622-4402 (http://education.HireArt.Govtoday/faq/QQT884) Non-HDL Cholesterol 168(H) <130 mg/dL (calc) [facility] [...] LDL-C. Alistair SS et al. CANDI. 2013;310(19): 5132-4959 (http://education.HireArt.Govtoday/faq/VBW441) Non-HDL Cholesterol 168(H) <130 mg/dL (calc) [facility] [...] LDL-C. Alistair SS et al. CANDI. 2013;310(19): 2579-8304 (http://education.HireArt.Govtoday/faq/BQH294) Non-HDL Cholesterol 168(H) <130 mg/dL (calc) [facility] Comment: For patients with diabetes plus 1 major ASCVD risk factor, treating to a non-HDL-C goal of <100 mg/dL (LDL-C of <70 mg/dL) is considered a therapeutic option. Triglycerides 156(H) <150 mg/dL [facility] 08/21/2020 11:3 1 AM EST us Shantelle Adame MD LAB BLOOD ORDERABLES Final Re sult [facility] [address] from Last 3 Months or Most Recently Relevant to Health Maintenance Insurance [place], [place] [employer] Care Teams Graduate Fellow Relationship Specialty Start Date End Date Kadi Tomlin MD [address] [place] [address] PCP - General Family Medicine 05/21/21
--- OUTSIDE RECORDS SUMMARY | 2025-09-07 19:04 | XMS_ITS | Encounter Summary ---
Author Organization [employer] Address [address] [facility] 7t [place] [address] Care Team Providers Care Application Packaging Consultant Name Role Phone Kadi Tomlin MD Primary Care Provider [phone] Reason for Visit * Reason Onset Date Comments Appointment Request 12/25/2022 Encounter Details Date Type Department Care Team ([facility] st Contact Info) Description 12/25/2022 Telephone [facility] MEDICINE [address] [place], [place] [phone] Kadi Tomlin MD [address] [place], [place] [phone] Appointment Request Social History Tobacco Use Types [...] Miscellaneous Notes * Telephone Encounter - Jay aMradiaga Kamryn - 12/25/2022 1:30 PM EDT Tc from pt returning phone call to schedule an appt Please contact pt at [phone] documented in this encounter Plan of Treatment Not on file documented as of this encounter Visit Diagnoses Not on filedocumented in this encounter Additional Health Concerns Assessment Noted Time PHQ-9 Depression Total Score: 7 11/11/19 23 8:54 AM EST documented as of this encounter Care Teams Application Packaging Consultant Relationship Specialty Start Date End Date Kadi Tomlin MD [address] [place] [address] PCP - General Family Medicine 05/21/21 documented as of this encounter
--- OUTSIDE RECORDS SUMMARY | 2025-09-07 19:04 | XMS_ITS | Encounter Summary ---
Author Organization [employer] Address [address] [facility] 7t [place] [address] Care Team Providers Care Industrial Relations Manager Name Role Phone Kadi Tomlin MD Primary Care Provider [phone] Reason for Visit * Reason Onset Date Comments telephone call 09/05/2025 Encounter Details Date Type Department Care Team ([facility] st Contact Info) Description 09/05/[address] [facility] MEDICINE [address] [place], [place] [phone] Kadi Tomlin MD [address] [place], [place] [phone] Benign hypertension Social History Tobacco Use Types [...] as of this encounter Miscellaneous Notes * Addendum Note - Amanda Horton RN - 09/05/2025 2:56 PM ESTAddended by: AMANDA HORTON on: 09/05/2025 02:56 PM Modules accepted: Orders * Telephone Encounter - Amanda Horton RN - 09/05/2025 2:55 PM EST Dispensed 90 day supply 08/15/25. New prescription is needed, all refills have been picked up. Pt. Will need to request early refill from pharmacy once prescription is sent. * Telephone Encounter - Sandra Swann - 09/05/2025 2:36 PM EST Pt walked in requesting a refill for Hydrochlorothiazide she stated she lost this medication. documented in this encounter Plan of Treatment Not on file documented as of this encounter Visit Diagnoses Diagnosis Benign hypertension Essential hypertension, benign documented in this encounter Additional Health Concerns Assessment Noted Time PHQ-9 Depression Total Score: 22 025 3:12 PM EST documented as of this encounter Care Teams Industrial Relations Manager Relationship Specialty Start Date End Date Kadi Tomlin MD [address] [place] [address] PCP - General Family Medicine 05/21/21 documented as of this encounter
--- OUTSIDE RECORDS SUMMARY | 2025-09-07 19:04 | XMS_ITS | Encounter Summary ---
Author Organization [employer] Address [address] [facility] 7t [place] [address] Care Team Providers Care Chimney Builder Brick Name Role Phone Kadi Tomlin MD Primary Care Provider [phone] Encounter Details Date Type Department Care Team (Late st Contact Info) Description 06/19/2023 Orders Only [facility] MEDICINE [address] [place], [place] [phone] Kadi Tomlin MD [address] [place], [place] [phone] Social History Tobacco Use Types Packs/Day Years [...] documented as of this encounter Care Teams Chimney Builder Brick Relationship Specialty Start Date End Date Kadi Tomlin MD [address] [place], [place] [phone] PCP - General Family Medicine 05/21/21 documented as of this encounter
--- OUTSIDE RECORDS SUMMARY | 2025-09-07 19:04 | XMS_ITS | Encounter Summary ---
Author Organization [employer] [facility] Address [address] [facility] 7t [place] [address] Care Team Providers Care Route Cdl Driver Name Role Phone Kadi Tomlin MD Primary Care Provider [phone] Encounter Details Date Type Department Care Team (Late st Contact Info) Description 05/28/2023 Orders Only [facility] MEDICINE [address] [place] [address] Provider, Tracey, Social History Tobacco Use Types Packs/Day Years [...] documented as of this encounter Care Teams Route Cdl Driver Relationship Specialty Start Date End Date Kadi Tomlin MD [address] [place] [address] PCP - General Family Medicine 05/21/21 documented as of this encounter
--- OUTSIDE RECORDS SUMMARY | 2025-09-07 19:04 | XMS_ITS | Encounter Summary ---
Author Organization [employer] Address [address] [facility] 7t [place] [address] Care Team Providers Care Four Horse Hitch Driver Name Role Phone Kadi Tomlin MD Primary Care Provider [phone] Encounter Details Date Type Department Care Team (Latest Contact Info) Description 09/07/2025 Travel Social History Tobacco Use Types Packs/Day [...] documented as of this encounter Care Teams Four Horse Hitch Driver Relationship Specialty Start Date End Date Kadi Tomlin MD [address] [place] [address] PCP - General Family Medicine 05/21/21 documented as of this encounter
--- OUTSIDE RECORDS SUMMARY | 2025-09-07 19:04 | XMS_ITS | Encounter Summary ---
Author Organization [employer] Address [address] [facility] 7t [place] [address] Care Team Providers Care Global Position System Technician Name Role Phone Kadi Tomlin MD Primary Care Provider [phone] Reason for Visit * Reason Onset Date Comments Med Change Request Attending Physician's Report 08/28/2025 I c alled regarding an Attending Physician's Report, from [employer]. I reached a voicemail, and left a message asking her to return my call at ext [phone]. In the event that I am not available, she may reach the forms nurse at ext [phone]. Encounter Details Date Type Department Care Team ([facility] st Contact Info) Description 08/28/2025 Refill [facility] MEDICINE [address] [place], [place] [phone] Kadi Tomlin MD [address] [place], [place] [phone] Social History Tobacco Use Types Packs/Day Years [...] Colon [place] documented as of this encounter Miscellaneous Notes * Telephone Encounter - Mehreen Fried MA - 08/30/2025 2:01 PM EST I called the patient regarding an Attending Physician's Report, from [employer]. I reached a voicemail, and left a message asking her to return my call at ext [phone]. In the event that I am not available, she may reach the forms nurse at ext [phone]. documented in this encounter Plan of Treatment Not on file documented as of this encounter Visit Diagnoses Not on filedocumented in this encounter Additional Health Concerns Assessment Noted Time PHQ-9 Depression Total Score: 025 3:12 PM EST documented as of this encounter Care Teams Global Position System Technician Relationship Specialty Start Date End Date Kadi Tomlin MD [address] [place] [phone] PCP - General Family Medicine 05/21/21 documented as of this encounter
--- OUTSIDE RECORDS SUMMARY | 2025-09-07 19:04 | XMS_ITS | Encounter Summary ---
Author Organization [employer] Address 75 [facility] 7t [place] [address] Care Team Providers Care Knife Grinder Name Role Phone Kadi Tomlin MD Primary Care Provider [phone] Reason for Visit * Reason Comments Med Refill Encounter Details Date Type Department Care Team (Late st Contact Info) Description 03/25/2023 Refill [facility] [address] [place], [place] [phone] Enoc Boles FNP Depressive disorder Social History [...] documented as of this encounter Care Teams Knife Grinder Relationship Specialty Start Date End Date Kadi Tomlin MD [address] [place] [address] PCP - General Family Medicine 05/21/21 documented as of this encounter
--- OUTSIDE RECORDS SUMMARY | 2025-09-07 19:04 | XMS_ITS | Encounter Summary ---
Author Organization [employer] Address [address] [facility] 7t [place] [address] Care Team Providers Care Mdm Developer Name Role Phone Kadi Tomlin MD Primary Care Provider [phone] Encounter Details Date Type Department Care Team (Late st Contact Info) Description 08/17/2023 Abstract [facility] MEDICINE [address] [place], [place] [phone] Denisse Castillo Social History Tobacco Use Types [...] documented as of this encounter Care Teams Mdm Developer Relationship Specialty Start Date End Date Kadi Tomlin MD [address] [place] [phone] PCP - General Family Medicine 05/21/21 documented as of this encounter
--- OUTSIDE RECORDS SUMMARY | 2025-09-07 19:04 | XMS_ITS | Encounter Summary ---
Author Organization [employer] Address [address] [facility] 7t [place] [address] Care Team Providers Care Salesforce Business Analyst Name Role Phone Kadi Tomlin MD Primary Care Provider [phone] Reason for Visit * Reason Onset Date Comments Nurse Triage 04/05/2024 Encounter Details Date Type Department Care Team ([facility] st Contact Info) Description 04/05/2024 Telephone [facility] MEDICINE [address] [place], [place] [phone] Kadi Tomlin MD [address] [place], [place] [phone] Nurse Triage Social History Tobacco Use Types [...] 04/05/2024 12:14 PM EDT Triage call with [employer] [place] [id number] Pt reports low blood pressure of 106/80 [...] fordays. Pt is advised to come to [facility] today to be seen by [...] accepted this outcome Please contact pt @ Essie Speaker documented in this encounter Plan of Treatment Not on file documented as of this encounter Visit Diagnoses Not on filedocumented in this encounter Additional Health Concerns Assessment Noted Time PHQ-9 Depression Total Score: 15 024 9:17 AM EDT documented as of this encounter Care Teams Salesforce Business Analyst Relationship Specialty Start Date End Date Kadi Tomlin MD [address] [place] [address] PCP - General Family Medicine 05/21/21 documented as of this encounter
--- OUTSIDE RECORDS SUMMARY | 2025-09-07 19:04 | XMS_ITS | Encounter Summary ---
Author Organization [employer] Address [address] [place] [address] Care Team Providers Care Environmental Health And Safety Leader Name Role Phone Kadi Tomlin MD Primary Care Provider [phone] Reason for Visit * Reason Onset Date Comments Appointment Request 03/27/2023 Encounter Details Date Type Department Care Team ([facility] st Contact Info) Description 03/27/2023 Telephone [facility] MEDICINE [address] [place], [place] [phone] Kadi Tomlin MD [address] [place], [place] [phone] Appointment Request Social History Tobacco Use Types [...] with Enoc Boles. Please contact pt at [phone] documented in this encounter Plan of Treatment Not on file documented as of this encounter Visit Diagnoses Not on filedocumented in this encounter Additional Health Concerns Assessment Noted Time PHQ-9 Depression Total Score: 9 01/09/20 23 9:12 AM EDT documented as of this encounter Care Teams Environmental Health And Safety Leader Relationship Specialty Start Date End Date Kadi Tomlin MD [address] [place] [address] PCP - General Family Medicine 05/21/21 documented as of this encounter
--- OUTSIDE RECORDS SUMMARY | 2025-09-07 19:04 | XMS_ITS | Encounter Summary ---
Author Organization [employer] Address [address] [place] [address] Care Team Providers Care Bricklayer Tender Name Role Phone Kadi Tomlin MD Primary Care Provider [phone] Reason for Visit * Reason Onset Date Comments Nurse Triage 09/07/2025 Encounter Details Date Type Department Care Team ([facility] st Contact Info) Description 09/07/2025 Telephone [facility] MEDICINE [address] [place], [place] [phone] Kadi Tomlin MD [address] [place], [place] [phone] Nurse Triage Social History Tobacco Use Types [...] encounter Miscellaneous Notes * Telephone Encounter - Lori Jay RN - 09/07/2025 11:08 AM EST Call returned to pt via [employer] [facility] #[id number] who c/o 06/30 back pain that started a month ago. Pt reports that pain has been worse and more severe for the last 2 weeks. Pt denies injury. Reports that she is able to walk a little bit but walking is limited by pain. Reports pain is worsened by sitting down or lying down. Pt denies fever, loss of control of bowel or bladder, urinary symptoms. Recommended that pt come to [facility] today for evaluation. Pt reports agreement with plan. Protocol Used: Back Pain (Adult) Protocol-Based Disposition: See in Office or Video Visit Today Video visit not offered Positive Triage Question: * Severe back pain (e.g., excruciating, unable to do any normal activities) and not improved after pain medicine and Care Advice * All higher-acuity triage questions were negative. Care Advice Discussed: * Reasons To Call Back - Pain begins to shoot into the leg - Numbness or weakness occurs - Loss of control of your bladder or bowel - You become worse * Telephone Encounter - Mickie Ventura - 09/07/2025 9:56 AM EST Symptom: Back Pain - Not From Injury Outcome: Schedule an appointment to be seen within 3 days Reason: Caller denied all higher acuity questions The caller accepted this outcome. Contact pt at [phone] (sami) documented in this encounter Plan of Treatment Not on file documented as of this encounter Visit Diagnoses Not on filedocumented in this encounter Additional Health Concerns Assessment Noted Time PHQ-9 Depression Total Score: 22 025 3:12 PM EST documented as of this encounter Care Teams Bricklayer Tender Relationship Specialty Start Date End Date Kadi Tomlin MD [address] [place] [address] PCP - General Family Medicine 05/21/21 documented as of this encounter
== END 2025-09-07 14:59 | disposition home or self-care (01) ==
LOC: HO.HHCX 14:58
PROVIDERS: PCP General Practice; Visit Provider Student in an Organized Health Care Education/Training Program
DX: M54.50 Low back pain, unspecified (principal)
CPT/HCPCS: 72100

== ENCOUNTER → 2025-09-07 15:01 | Outpatient (BNV) | payer MEDICAID, SELFPAY | PROVIDERS: PCP General Practice; Visit Provider Radiology Diagnostic Radiology | DX: M51.360 Other intervertebral disc degeneration, lumbar region with discogenic back pain only (principal) | CPT/HCPCS: 72100 ==